=== PATIENT | female | born 1950 | race Caucasian/White ===

== ENCOUNTER 2021-11-06 15:12 | Inpatient (IN) | payer MEDICARE, MEDICAID ==
[~2021-11-06] VITALS: Ht 165.1 cm; Wt 68.9 kg
--- NOTE | 2021-11-06 15:15 | NUR ---
RT NOTE, PT. 71 Y OLD FEMALE REC. IN ER #5 NONE VERBAL, TRACH ( SHILEY XLT #7 ), PLACED ON VENTILATOR WITH NOTED SETTINGS PER MD ORDER. ( AC 12, VT 550, FIO2 40%, PEEP +5 ) EQUAL CHEST RISE NOTED, ALARMS ARE SET AND FUNCTIONAL, B/S BILATERALLY RALES AND SUX'D FOR SMALL AMT WHITE SECRETIONS, VENT PLUGGED INTO RED OUT LET. ABG WILL BE DONE PT. STABLE AND FAY. VENT SETTINGS WELL, [id number], SPO2 97% AMBU BAG REMAIN AT THE BEDSIDE. CONTINUE TO MONITOR. Addendum: 11/06/21 at 1739 by KAREY GUILLEN RT Amended: Links added.
--- NOTE | 2021-11-06 15:19 | NUR ---
TO ER BED 5, [id number] FOR AMS 1 1/2 HOUR WHILE BEING DIALYZED. BG 266 SKI PRODUCTION SUPERVISOR, NON VERBAL, CONNECTED TO MONITOR, RESPIRATORY AT BEDSIDE, AWAITING MD ORDERS
--- NOTE | 2021-11-06 15:27 | NUR ---
Alex trimble in [facility] - 11/06/21 at 1528 by AISHA GOT BED [id number]
[2021-11-06 15:50] LABS: BASOPHILS % (AUTO) 0.6 % (0.0-2.0); HEMATOCRIT 27 % (33-45); HEMOGLOBIN 8.9 g/dL (11.5-14.8); LYMPHOCYTES # (AUTO) 0.7 K/uL (0.8-4.8); MEAN CORPUSCULAR HGB CONC 33 g/dl (31.0-36.0); MEAN CORPUSCULAR VOLUME 94 fL (82-100); MONOCYTES # (AUTO) 0.4 K/uL (0.1-1.30); MONOCYTES % (AUTO) 6.4 % (2.0-12.0); NEUTROPHILS # (AUTO) 5.1 K/uL (1.8-8.9); PLATELET COUNT (AUTO) 94 K/uL (150-450); RED BLOOD CELL COUNT(AUTO) 2.87 MIL/uL (4.0-5.2); WHITE BLOOD COUNT (AUTO) 6.2 K/uL (4.3-11.0)
[2021-11-06 16:09] LABS: CALCIUM, SERUM 7.8 mg/dL (8.5-10.1); CARBON DIOXIDE 20 mmol/L (21-32); CHLORIDE 102 mmol/L (98-107); CREATININE 5.2 mg/dL (0.6-1.3); GLUCOSE 213 mg/dL (74-106); POTASSIUM 4.3 mmol/L (3.5-5.1); SODIUM SERUM 136 mmol/L (136-145); UREA NITROGEN, BLOOD 39 mg/dL (7-18)
[2021-11-06 16:13] LABS: BAND % (MANUAL) 3 % (0.0-5.0); LYMPHOCYTES % (MANUAL) 9 % (16-48); MONOCYTES % (MANUAL) 8 % (0-11.0); NEUTROPHILS % (MANUAL) 80 (42-76)
[2021-11-06 16:15] LABS: ABG BASE EXCESS -2.3 mmol/L; ABG OXYGEN SATURATION 97.6 % (92.0-98.5); ABG PCO2 22.2 mmHg (35.0-45.0); ABG PH 7.547 (7.350-7.450); ABG PO2 99.3 mmHg (75.0-100.0); AaDO2 160.4 mmHg; COHb 0.3 % (0.5-1.5); O2Hb 97.3 % (94.0-97.0); SITE, ABG Right Brachial
[2021-11-06 16:23] LABS: ALANINE AMINOTRANSFERASE 18 U/L (12-78); ALBUMIN 1.8 g/dL (3.4-5.0); ALKALINE PHOSPHATASE 90 U/L (46-116); ASPARTATE AMINOTRANSFERASE 22 U/L (15-37); BILIRUBIN,DIRECT 0.2 mg/dL (0.0-0.2); BILIRUBIN,TOTAL 0.5 mg/dL (0.2-1.0); TOTAL PROTEIN, SERUM 6.8 g/dL (6.4-8.2)
[2021-11-06] MEDS ORDERED: CEFEPIME 1 GM in IV D5W 50 ML IV ONE (16:30)
[2021-11-06] MEDS ORDERED: VANCOMYCIN 1 GM in IV D5W 250 ML IV ONE (16:30)
--- NOTE | 2021-11-06 16:37 | NUR ---
TAKEN TO CT VIA RALPH
--- NOTE | 2021-11-06 16:45 | NUR ---
CALLED FOR PICC LINE NURSE
[2021-11-06] MEDS ORDERED: ACETAMINOPHEN 650 MG/SUPP.RECT RC ONE ×2 (17:00→17:09)
[2021-11-06] MEDS ORDERED: MAG HYDROX/AL HYDROX/SIMETH 30 ML UDC PO PRN (18:00)
[2021-11-06] MEDS ORDERED: DEXTROSE 50%-WATER 50 ML DISP.SYRIN IV PRN (18:00)
[2021-11-06] MEDS ORDERED: MAGNESIUM HYDROXIDE 30 ML UDC PO PRN (18:00)
[2021-11-06] MEDS ORDERED: ONDANSETRON HCL/PF 4 MG/2 ML VIAL IVP PRN (18:00)
[2021-11-06] MEDS ORDERED: Z GUARD REMEDY 2 OZ OINT TP PRN (18:00)
--- NOTE | 2021-11-06 18:27 | NUR ---
COVID SWAB DONE AND SENT TO THE LAB
--- NOTE | 2021-11-06 19:38 | NUR ---
MRSA SWAB COLLECTED AND SENT TO LAB. PATIENT'S BELONGINGS LIST DONE.
--- NOTE | 2021-11-06 20:37 | NUR ---
NOTED W/ LOW BP OF 90/55. MORELIA AMARAL NP MADE AWARE W/ A NEW ORDER FOR PICC LINE INSERTION. ENDY HYATT AT BED SIDE FOR MID LINE INSERTION WILL INSER PICC INSTEAD.
--- NOTE | 2021-11-06 21:17 | NUR ---
RT UPPER ARM PICC LINE IN PLACE BY MIDLINE RN
[2021-11-06] MEDS ORDERED: PHENYLEPHRINE 10 MG/ML VIAL ONE (21:18)
[2021-11-06] MEDS ORDERED: PHENYLEPHRINE 50 MG in IV NS 0.9% 245 ML IV PRN (21:30)
--- NOTE | 2021-11-06 21:31 | NUR ---
ICU 256
[2021-11-06] MEDS: PHENYLEPHRINE 50 MG in IV NS 0.9% 245 ML IV PRN (21:34)
--- NOTE | 2021-11-06 21:41 | NUR ---
ATTEMPTED TO GIVE REPORT, RN WILL CALL ME BACK
--- NOTE | 2021-11-06 22:00 | NUR ---
ANJU REPORT TO JOHN CAZARES FOR SALVATORE
--- NOTE | 2021-11-06 22:15 | NUR ---
RN/ICU-ADMITTED THIS 71 Y/O FEMALE FROM ER PER ACLS PROTOCOL:DX.ALOC. ROUTINE ICU ADMISSION CARE INITIATED. PT. AROUSABLE,CONFUSED, MOANING. ON THE VENT PER TRACH, ON AC MODE. FIO2-40%. EKG SR. BP-110/46, ON LEVOPHED DRIP AT .5MCG/KG/MIN. WILL TITRATE TO KEEP SBP>90. AFEBRILE. PT. WITH MULTI SKIN ISSUES, WOUND CARE INITIATED PER PROTOCOL. WOUND CARE CONSULT TRIGGERED. PT. ON DROPLET ISOLATION,AWAITING PCR RESULT.PRECAUTIONS IN EFFECT.FULL CODE.
[2021-11-06 23:00] VITALS: BP 99/52
[2021-11-06 23:15] VITALS: BP 69/36
[2021-11-06] MEDS: BLOOD SUGAR DIAGNOSTIC 1 EACH STRIP VI SCH (23:25)
[2021-11-06] MEDS: *INSULIN REGULAR(HUMULIN R)HUM 100 UNIT/ML VIAL SQ PRN (23:27)
[2021-11-06 23:30] VITALS: BP 83/33
[2021-11-06] MEDS ORDERED: PIPERACILLIN /TAZOBACTAM 2.25 G VIAL IV ONE (23:32)
[2021-11-06 23:45] VITALS: BP 83/39
[2021-11-07] VITALS (103 sets, daily range): BP systolic 73–143; BP diastolic 27–89
[2021-11-07] MEDS ORDERED: PIPERACILLIN /TAZOBACTAM 2.25 G in IV D5W 50 ML IV SCH
[2021-11-07] MEDS: IV NS 0.9% 250 ML IV PRN ×3 (02:55→21:56)
[2021-11-07] MEDS: ACETAMINOPHEN 650 MG/SUPP.RECT RC PRN (04:30)
--- NOTE | 2021-11-07 04:30 | NUR ---
RN/ICU-FEVERISH, TEMPT.-100/F,COOLING MEASURES DONE, TYLENOL 650MG WV GIVEN . WILL REASSESS FOR PRN EFFECTIVENESS.
[2021-11-07] MEDS ORDERED: PHENYLEPHRINE 10 MG/ML VIAL ONE (05:54)
[2021-11-07] MEDS: PHENYLEPHRINE 50 MG in IV NS 0.9% 245 ML IV PRN (05:57)
[2021-11-07 06:04] LABS: BASOPHILS % (AUTO) 0.1 % (0.0-2.0); HEMATOCRIT 27 % (33-45); HEMOGLOBIN 8.7 g/dL (11.5-14.8); LYMPHOCYTES # (AUTO) 0.8 K/uL (0.8-4.8); MEAN CORPUSCULAR HGB CONC 33 g/dl (31.0-36.0); MEAN CORPUSCULAR VOLUME 95 fL (82-100); MONOCYTES # (AUTO) 0.6 K/uL (0.1-1.30); MONOCYTES % (AUTO) 9.5 % (2.0-12.0); NEUTROPHILS # (AUTO) 5.3 K/uL (1.8-8.9); NEUTROPHILS % (AUTO) 78.4 % (43.0-81.0); PLATELET COUNT (AUTO) 104 K/uL (150-450); WHITE BLOOD COUNT (AUTO) 6.8 K/uL (4.3-11.0)
[2021-11-07 06:34] LABS: CALCIUM, SERUM 8.4 mg/dL (8.5-10.1); CARBON DIOXIDE 21 mmol/L (21-32); CHLORIDE 104 mmol/L (98-107); CREATININE 6.4 mg/dL (0.6-1.3); GLUCOSE 81 mg/dL (74-106); MAGNESIUM 1.9 mg/dL (1.8-2.4); PHOSPHORUS 2.3 mg/dL (2.5-4.9); POTASSIUM 3.7 mmol/L (3.5-5.1); SODIUM SERUM 140 mmol/L (136-145); UREA NITROGEN, BLOOD 53 mg/dL (7-18)
--- NOTE | 2021-11-07 07:05 | NUR ---
RN NOTES RECEIVED PT ON BED, VENT/TRACH DEPENDENT, TOLERAING VENT SETTING WELL, RESPONDS TO PAINFUL STIMULI, T=100.0 AXILLARY AT THIS TIME, ON TELE SR HR IN 90'S , RIGHT UPPER ARM PICC SITE AND RIGHT UPPER CHEST HD CATH SITE , CLEAN ,DRY AND INTACT, GLO AT 2 MCG/KG/ MIN RUNNING FOR BP SUPPORT, SR UP x3, CALL LIGHT WITHIN EASY REACH, BED LOCKED AND IN LOWEST POSITION, CONTINUE TO MONITOR .
[2021-11-07] MEDS: HYDROCORTISONE SOD SUCCINATE 100 MG/2 ML VIAL IV SCH ×3 (07:59→21:20)
[2021-11-07] MEDS: BLOOD SUGAR DIAGNOSTIC 1 EACH STRIP VI SCH ×4 (08:12→21:21)
[2021-11-07] MEDS ORDERED: CHLO473M5 MM (08:54)
[2021-11-07] MEDS ORDERED: AMIN30LI2 PO (08:54)
[2021-11-07] MEDS ORDERED: ZINC56.713 TP (08:54)
[2021-11-07] MEDS ORDERED: GLIP5TAB13 PO (08:54)
[2021-11-07] MEDS ORDERED: CLON0.1T PO (08:54)
[2021-11-07] MEDS ORDERED: LEVO88TA5 PO (08:54)
[2021-11-07] MEDS ORDERED: ASCO-352 PO (08:54)
[2021-11-07] MEDS ORDERED: ESCI10TA PO (08:54)
[2021-11-07] MEDS ORDERED: ALBU2.5V38 IH (08:54)
[2021-11-07] MEDS ORDERED: ASPI-1420 PO (08:54)
[2021-11-07] MEDS ORDERED: OLAN2.5T3 PO (08:54)
[2021-11-07] MEDS ORDERED: DOCU-141 PO (08:54)
[2021-11-07] MEDS ORDERED: LOSA50TA39 PO (08:54)
[2021-11-07] MEDS ORDERED: CARV6.252 PO (08:54)
[2021-11-07] MEDS ORDERED: NIFE-35 PO (08:54)
[2021-11-07] MEDS ORDERED: EPOE1VIA6 SQ (08:54)
[2021-11-07] MEDS ORDERED: POLY17PO4 PO (08:54)
[2021-11-07] MEDS ORDERED: FOLI0.8T2 PO (08:54)
[2021-11-07] MEDS ORDERED: RIVA10TA PO (08:54)
[2021-11-07] MEDS ORDERED: SEVE800T8 PO (08:54)
[2021-11-07] MEDS ORDERED: PANT40TA2 PO (08:54)
--- NOTE | 2021-11-07 09:00 | NUR ---
WOUND CARE CONSULT: REVIEWED CHART, NURSING DOCUMENTATION AND PHOTOS WHICH INDICATE INTACT DEEP TISSUE INJURIES/DISCOLORATIONS TO SACRUM, BUTTOCKS AND RT HIP. PRESENT ON ADMISSION. PT IS ON ZENON ISOFLEX LOW AIRLOSS BED. ALL SKIN PROTECTION MEASURES IN PLACE AND DISCUSSED WITH NURSING STAFF. MD IN AGREEMENT WITH PLAN OF CARE.
[2021-11-07] MEDS: ZOSYN IVPB 2.25 G in IV D5W 50ml IV SCH ×3 (09:03→21:20)
[2021-11-07] MEDS ORDERED: ALBUTEROL SULFATE INH 18 GM HFA.AER.AD IH PRN (09:30)
--- NOTE | 2021-11-07 09:50 | NUR ---
RT PER DR HERNANDEZ ORDERS: VT LOWERED TO 500, PEEP TURNED OFF. Addendum: 11/07/21 at 1157 by KENNETH BEAN RT Amended: Links added.
[2021-11-07] MEDS: PHENYLEPHRINE 100 MG in IV NS 0.9% 240 ML IV PRN ×3 (10:27→21:56)
--- NOTE | 2021-11-07 11:11 | NUR ---
RN NOTES NGT TUBE INSERTED, XRAY DONE TO CHECK FOR PARCHMENT , NGT ADVANCED 6 CM PER RADIOLOGY REPORT ,NGT PLACEMENT CHECKED WITH TWO RNS .
[2021-11-07] MEDS ORDERED: NEPRO 1,000 ML BOTTLE GT PRN (11:30)
[2021-11-07] MEDS: ACETAMINOPHEN 325 MG TABLET PO PRN (12:18)
[2021-11-07] MEDS: NOREPINEPHRINE 8 MG in IV NS 0.9% 242 ML IV PRN (14:45)
--- NOTE | 2021-11-07 14:45 | NUR ---
RN NOTES PT RECEIVING HD , LOW BP NOTED, LEVO DRIP STARTED PER PROTOCOL.
[2021-11-07] MEDS: RIVAROXABAN 10 MG TABLET PO SCH (16:16)
[2021-11-07] MEDS: INSULIN REGULAR, HUMAN 100 UNIT/ML 3 ML VIAL SQ PRN (17:11)
--- NOTE | 2021-11-07 18:00 | NUR ---
RN NOTES DR GALLO NOTIFIED REGARDING MG 2.3 , NO NEW ORDER GIVEN
[2021-11-07] MEDS: VANCOMYCIN 500 MG in IV D5W 100 ML IV PRN (18:08)
--- NOTE | 2021-11-07 18:50 | NUR ---
RN NOTES TRACH CARE DONE, TOLERAING VENT SETTING WELL, PT STILL LETHARGIC , DOES NOT FOLLOW COMMAND, TOLERAING TF WELL, NO RESIDUAL NOTED, ON TELE SR, IV SITES CLEAN ,DRY INTACT , WILL ENDORSE TO TANK TENDER NURSE FOR CONTINUITY OF CARE .
--- NOTE | 2021-11-07 20:00 | NUR ---
RN OPENING NOTE RECEIVED PATIENT IN BED. NONVERBAL VERY LETHARGIC. ON MECHANICAL VENT FROM TRACH SHILEY #7, AC 12 TV 500 FIO2 35% PEEP 0. RESPIRATIONS ARE EVEN AND UNLABORED. NO RESP DISTRESS. NO S/S PAIN NOTED. TELE MONITOR READS SINUS RHTYHM HR 63. IN NO APPARENT DISTRESS. IV ACCESS IN JAES PICC LINE RUNNING GLO@3MCG. LEFT WRIST #22 PATENT ANS SALINE LOCKED, RIGHT HAND#22 PATENT AND SALINE LOCKED. PATIENT ALSO HAS A RIGHT CHEST WALL HD CATH. NG TUBE IN PLACE, NO RESIDUAL, NEPRO RUNNING @35ML/HR. BED IS LOW AND LOCKED, HOB ELEVATED IN SEMI FOWLERS, SIDE RIALS UP X2, CALL LIGHT WITHIN REACH.
[2021-11-07] MEDS: *INSULIN REGULAR(HUMULIN R)HUM 100 UNIT/ML VIAL SQ PRN (21:44)
[2021-11-08] VITALS (97 sets, daily range): BP systolic 94–152; BP diastolic 45–86
[2021-11-08] MEDS: HYDROCORTISONE SOD SUCCINATE 100 MG/2 ML VIAL IV SCH ×3 (05:16→20:48)
[2021-11-08] MEDS: ZOSYN IVPB 2.25 G in IV D5W 50ml IV SCH ×3 (05:16→20:48)
[2021-11-08 05:52] LABS: BASOPHILS % (AUTO) 0.2 % (0.0-2.0); EOSINOPHILS % (AUTO) 0.1 % (0.0-6.0); HEMATOCRIT 24 % (33-45); HEMOGLOBIN 8.2 g/dL (11.5-14.8); LYMPHOCYTES # (AUTO) 0.8 K/uL (0.8-4.8); LYMPHOCYTES % (AUTO) 11.3 % (20.0-44.0); MEAN CORPUSCULAR HGB CONC 34 g/dl (31.0-36.0); MEAN CORPUSCULAR VOLUME 96 fL (82-100); MONOCYTES # (AUTO) 0.4 K/uL (0.1-1.30); MONOCYTES % (AUTO) 6.4 % (2.0-12.0); NEUTROPHILS # (AUTO) 5.5 K/uL (1.8-8.9); PLATELET COUNT (AUTO) 97 K/uL (150-450); RED BLOOD CELL COUNT(AUTO) 2.53 MIL/uL (4.0-5.2); WHITE BLOOD COUNT (AUTO) 6.7 K/uL (4.3-11.0)
[2021-11-08] MEDS ORDERED: PHENYLEPHRINE 10 MG/ML VIAL ONE (05:57)
[2021-11-08] MEDS: PHENYLEPHRINE 100 MG in IV NS 0.9% 240 ML IV PRN (06:01)
--- NOTE | 2021-11-08 06:37 | NUR ---
RN CLOSING NOTE IN BED. NONVERBAL, OPENS EYES SPONTANEOUSLY. REMAINS ON MECHANICAL VENT FROM TRACH, NO CHANGES IN SETTINGS. NO RESP DISTRESS. NO S/S PAIN. TELE CONTINUES TO READ SINUS RHYTHM. NO DISTRESS. JASE PICC LINE RUNNING GLO@3MCG. LEFT WRIST #22 REMOVED D/T DISLODGED. RIGHT HAND#22 MAINTAINED AND SL.RIGHT CHEST WALL HD CATH. NG TUBE RUNNING @35ML/HR. BED REMAINS LOW AND LOCKED, HOB ELEVATED IN SEMI FOWLERS, SIDE RIALS UP X2, CALL LIGHT WITHIN REACH. WILL ENDORSE TO ONCOMING SHIFT.
[2021-11-08 07:00] LABS: CALCIUM, SERUM 7.8 mg/dL (8.5-10.1); CARBON DIOXIDE 23 mmol/L (21-32); CHLORIDE 101 mmol/L (98-107); CREATININE 3.7 mg/dL (0.6-1.3); GLUCOSE 289 mg/dL (74-106); POTASSIUM 3.6 mmol/L (3.5-5.1); SODIUM SERUM 137 mmol/L (136-145); UREA NITROGEN, BLOOD 39 mg/dL (7-18)
--- NOTE | 2021-11-08 07:30 | NUR ---
RN NOTES PT FOUND SEMI FOWLERS DISPLAYING NO S/S OF DISTRESS, PT ENDORSES NO PAIN, FLACC = 0 AND BILATERAL RISE AND FALL OF THE CHEST OBSERVED. RESIDUAL = < 5 ML. R UA PICC IS PATIENT AND INTACT. S1S2 NOTED, LUNGS CTA. VSS, RN WILL MONITOR AND TREAT THROUGHOUT SHIFT. SAFETY MEASURES IN PLACE, BED LOCKED AND IN LOWEST POSITION, SIDE RAILS UPX2, CALL LIGHT WITHIN REACH, BED ALARM ARMED.
--- NOTE | 2021-11-08 07:45 | NUR ---
RT PATIENT REC'D TRACHED ON [facility] VENT WITH ORDERED SETTINGS FAY WELL. VENT ALARMS CHECKED + AUDIBLE. CUFF PRESSURE CHECKED SENIOR MARKETING MANAGER. TRACH SECURE AND IN PROPER POSITION. PATIENT APPEARS COMFORTABLE, NO SOB NOTED. AMBU BAG AT THE HOB Addendum: 11/08/21 at 1238 by KENNETH BEAN RT Amended: Links added.
[2021-11-08] MEDS: BLOOD SUGAR DIAGNOSTIC 1 EACH STRIP VI SCH ×4 (07:50→21:12)
[2021-11-08] MEDS: LEVOTHYROXINE SODIUM 88 MCG TABLET PO SCH (07:50)
[2021-11-08] MEDS: NOREPINEPHRINE 8 MG in IV NS 0.9% 242 ML IV PRN (07:52)
[2021-11-08] MEDS: INSULIN REGULAR, HUMAN 100 UNIT/ML 3 ML VIAL SQ PRN ×2 (07:55→12:35)
[2021-11-08 08:06] LABS: IRON, SERUM 22 ug/dl (50-175); TOTAL IRON BINDING CAPACITY 72 ug/dl (250-450)
[2021-11-08 09:57] LABS: BAND % (MANUAL) 2 % (0.0-5.0); LYMPHOCYTES % (MANUAL) 16 % (16-48); MONOCYTES % (MANUAL) 7 % (0-11.0); NEUTROPHILS % (MANUAL) 72 (42-76)
--- NOTE | 2021-11-08 10:15 | NUR ---
CRITICAL LAB [facility] CALLED REPORTING MRSA OF THE BLOOD. RN ACKNOWLEDGED AND WILL INFORM ID MD AND HOSPITALIST.
[2021-11-08] MEDS ORDERED: EPOETIN ALFA-EPBX 10,000 UNIT/ML VIAL IV PRN (12:00)
[2021-11-08] MEDS: RIVAROXABAN 10 MG TABLET PO SCH (17:00)
[2021-11-08] MEDS: *INSULIN REGULAR(HUMULIN R)HUM 100 UNIT/ML VIAL SQ PRN ×2 (17:41→21:14)
--- NOTE | 2021-11-08 17:42 | NUR ---
NURSES NOTES XRAY HAS NOT YET CONFIRMED IF PT NGTUBE IS PLACED PROPERLY
[2021-11-08] MEDS: VANCOMYCIN 500 MG in IV D5W 100 ML IV PRN (18:39)
--- NOTE | 2021-11-08 19:15 | NUR ---
RN NOTES PT FOUND SEMI FOWLERS DISPLAYING NO S/S OF DISTRESS, PT ENDORSES NO PAIN, FLACC = 0 AND BILATERAL RISE AND FALL OF THE CHEST OBSERVED. RESIDUAL = < 5 ML, WAITING ON INTERPRETATION OF CXR TO RESUME FEEDING. R PICC IS PATIENT AND INTACT. R WRIST IN SOFT RESTRAINTS, PULSE PALPATED, CAP REFILL < 3 SECONDS. SBAR AND REPORT GIVEN TO SOCIAL SECRETARY RN, ALL QUESTIONS ANSWERED. SAFETY MEASURES IN PLACE, BED LOCKED AND IN LOWEST POSITION, SIDE RAILS UPX2, CALL LIGHT WITHIN REACH, BED ALARM ARMED. PT ENDORSED IN STABLE CONDITION, ALL QUESTIONS ANSWERED.
--- NOTE | 2021-11-08 19:34 | NUR ---
SEEN XRAY RESULT WITH RADIOLOGY RECOMMENDATION OF ADVANCEMENT OF NGTUBE, ADVANCE NGTUBE FROM 65 TO 75 PLACEMENT WAS CHECK VIA AUSCULTATION AND ASPIRATION RESIDUAL OF 5ML WAS NOTED WILL CONT THE GTUBE FEEDING RATE PER MD ORDER
--- NOTE | 2021-11-08 20:11 | NUR ---
PATIENT REC'D TRACHED SHILEY XLT # 7 ON [facility] VENT WITH ORDERED SETTINGS FAY WELL. VENT ALARMS CHECKED AND AUDIBLE. CUFF PRESSURE CHECKED CASING CREW PUSHER. TRACH SECURE AND IN PROPER POSITION.NO RESPIRATORY DISTRESS NOTED AT THIS TIME. AMBU BAG AT THE [facility]. WILL CONTINUE TO MONITOR PT T/O SHIFT.
[2021-11-08] MEDS: IV NS 0.9% 250 ML IV PRN (21:02)
[2021-11-09] VITALS (19 sets, daily range): BP systolic 117–149; BP diastolic 59–73
--- NOTE | 2021-11-09 00:20 | NUR ---
ACCUCHECK CHNAGE TO Q6H DUE TO PT IS ON GTUBE FEEDING MORELIA AMARAL CBX OPERATOR AWARE AND AGREE TO IT
[2021-11-09] MEDS ORDERED: DEXTROSE 50%-WATER 50 ML DISP.SYRIN IV PRN (00:30)
[2021-11-09] MEDS: ZOSYN IVPB 2.25 G in IV D5W 50ml IV SCH ×2 (04:44→12:03)
[2021-11-09] MEDS: HYDROCORTISONE SOD SUCCINATE 100 MG/2 ML VIAL IV SCH ×3 (04:45→21:44)
[2021-11-09] MEDS: NEPRO 1,000 ML BOTTLE GT PRN (04:45)
[2021-11-09 05:06] LABS: BASOPHILS % (AUTO) 0.1 % (0.0-2.0); HEMATOCRIT 26 % (33-45); HEMOGLOBIN 8.6 g/dL (11.5-14.8); LYMPHOCYTES # (AUTO) 0.8 K/uL (0.8-4.8); LYMPHOCYTES % (AUTO) 11.5 % (20.0-44.0); MEAN CORPUSCULAR HGB CONC 33 g/dl (31.0-36.0); MEAN CORPUSCULAR VOLUME 95 fL (82-100); MONOCYTES # (AUTO) 0.3 K/uL (0.1-1.30); MONOCYTES % (AUTO) 5.1 % (2.0-12.0); NEUTROPHILS # (AUTO) 5.5 K/uL (1.8-8.9); NEUTROPHILS % (AUTO) 83.3 % (43.0-81.0); PLATELET COUNT (AUTO) 112 K/uL (150-450); RED BLOOD CELL COUNT(AUTO) 2.74 MIL/uL (4.0-5.2); WHITE BLOOD COUNT (AUTO) 6.6 K/uL (4.3-11.0)
[2021-11-09 05:15] LABS: CALCIUM, SERUM 7.4 mg/dL (8.5-10.1); CARBON DIOXIDE 24 mmol/L (21-32); CHLORIDE 101 mmol/L (98-107); CREATININE 3.7 mg/dL (0.6-1.3); GLUCOSE 247 mg/dL (74-106); POTASSIUM 3.3 mmol/L (3.5-5.1); SODIUM SERUM 138 mmol/L (136-145); UREA NITROGEN, BLOOD 45 mg/dL (7-18)
[2021-11-09] MEDS: BLOOD SUGAR DIAGNOSTIC 1 EACH STRIP IN SCH ×3 (06:11→17:49)
[2021-11-09] MEDS: INSULIN REGULAR, HUMAN 100 UNIT/ML 3 ML VIAL SQ PRN ×3 (06:12→18:15)
--- NOTE | 2021-11-09 07:17 | NUR ---
PT ON BED SLEEPING EASY TO WAKE UP BUT NOT FOLLOWING ANY COMMANDS, STILL ON TRACH/VENT SETTING PER MD FIO2 35% SPO2 99% STILL ON NGTUBE FEEDING NEPHRO @ 35ML/HR TOLERATING WELL, WITH RIGHT WRIST SOFT RESTRAINTS, CIRCULATION WAS CHECKED BED ON LOWEST POSITION AND LOCKED ENDORSED TO AM SHIFT NURSE
--- NOTE | 2021-11-09 07:30 | NUR ---
RN NOTES PT FOUND SEMI FOWLERS DISPLAYING NO S/S OF DISTRESS, PT ENDORSES NO PAIN, FLACC = 0 AND BILATERAL RISE AND FALL OF THE CHEST OBSERVED. RESIDUAL < 5 ML. R UA PICC IS PATIENT AND INTACT. R WRIST IN SOFT RESTRAINTS, PULSE PALPATED, CAP REFILL < 3 SECONDS. VSS, RN WILL MONITOR AND TREAT THROUGHOUT SHIFT. SAFETY MEASURES IN PLACE, BED LOCKED AND IN LOWEST POSITION, SIDE RAILS UPX2, CALL LIGHT WITHIN REACH, BED ALARM ARMED.
[2021-11-09] MEDS: LEVOTHYROXINE SODIUM 88 MCG TABLET PO SCH (07:35)
[2021-11-09] MEDS ORDERED: LIDOCAINE 1% INJ 50 ML MDV IJ ONE (08:00)
--- NOTE | 2021-11-09 08:00 | NUR ---
MD VISIT DR. MENA REMOVED HEMODIALYSIS CATHETER. DRESSING PLACED, BLEEDING CONTROLLED.
--- NOTE | 2021-11-09 12:55 | NUR ---
TRANSFER RN CALLED AND GAVE REPORT TO ALY CARNEY RN. PT TRANSPORTED ON PORTABLE BEDSIDE MONITOR ACCOMPANIED BY TWO RT (1 RESPIRATORY MANAGEMENT AND 1 TO MOVE MECH VENT). PT IS STILL NON-VERBAL, FLACC = 0 AND BILATERAL RISE AND FALL OF THE CHEST OBSERVED ON AMBU BAG HOOKED UP TO O2. R UA PICC PATIENT AND INTACT. DRIED BLOOD OBSERVED OVER WHERE HD CATH WAS REMOVED EARLIER IN AM. BILATERAL SOFT WRISTS APPLIED, PULSES PALPATED BILATERALLY. PT ENDORSED IN STABLE CONDITION FOR SALVATORE.
--- NOTE | 2021-11-09 13:00 | NUR ---
RN NOTES REPORT RECEIVED FROM JOHN PASTOR, PT RECEIVED IN STABLE CONDITION WITH NO SIGN OF RESPIRATORY DISTRESS OR SOB AT THIS TIME, NON-VERBAL, JASE PICC PATIENT AND INTACT. DRIED BLOOD NOTED OVER HD CATH THAT WAS REMOVED EARLIER. NGT NOTED RUNNING NEPRO 30CC/HR, BILATERAL SOFT WRISTS ALSO IN PLACE, PULSES PALPATED BILATERALLY. SAFETY MEASURES IN PLACE BED LOCKED AND IN LOWEST POSITION CALL LIGHT WITHIN REACH WILL CONTINUE TO MONITOR
[2021-11-09] MEDS: MUPIROCIN OINT 2% 22 GM TUBE NS SCH ×2 (13:36→21:45)
[2021-11-09] MEDS: CEFEPIME 1 GM in IV D5W 50 ML IV SCH (13:36)
[2021-11-09] MEDS: RIVAROXABAN 10 MG TABLET PO SCH (16:49)
--- NOTE | 2021-11-09 18:33 | NUR ---
RN CLOSING NOTES PT REMAINS IN BED IN STABLE CONDITION WITH NO SIGN OF RESPIRATORY DISTRESS OR SOB AT THIS TIME, NON-VERBAL, JASE PICC LINE PATIENT, INTACT AND FLUSHING WELL. NGT PATENT AND IN PLACE RUNNING NEPRO 30CC/HR, BILATERAL SOFT WRISTS ALSO IN PLACE, ALL NEEDS MET, PT KEPT CLEAN AND COMFORTABLE DURING SHIFT, SAFETY MEASURES IN PLACE BED LOCKED AND IN LOWEST POSITION CALL LIGHT WITHIN REACH WILL ENDORSE TO METER ENGINEERINVESTMENT ACCOUNTANT. Addendum: 11/09/21 at 1845 by KEN ALAMO RN PT IS ON MECHANICAL VENT TRACH S#7 AC12 TV 500 FIO2 35 PEEP 0. SR 60/70s
--- NOTE | 2021-11-09 20:00 | NUR ---
babatunde rn notes PT IN BED IN STABLE CONDITION ON VENT SETTING ORDERED WELL TOLERATED ON TELE SR HR OF 65 .WITH NO SIGN OF RESPIRATORY DISTRESS OR SOB AT THIS TIME, NON-VERBAL, JASE PICC LINE PATIENT, INTACT AND FLUSHING WELL. NGT PATENT AND IN PLACE RUNNING NEPRO 35CC/HR, BILATERAL SOFT WRISTS ALSO IN PLACE, ALL NEEDS MET, PT KEPT CLEAN AND COMFORTABLE DURING SHIFT, SAFETY MEASURES IN PLACE BED LOCKED AND IN LOWEST POSITION CALL LIGHT WITHIN REACH ,V/S STABLE AFEBRILE DUE MEDS GIVEN ORDERED WILL CONTINUE TO MONITOR PTS..
[2021-11-10] VITALS: BP 160/75
[2021-11-10] MEDS: INSULIN REGULAR, HUMAN 100 UNIT/ML 3 ML VIAL SQ PRN ×4 (00:59→17:38)
[2021-11-10] MEDS: BLOOD SUGAR DIAGNOSTIC 1 EACH STRIP IN SCH ×4 (01:00→17:39)
--- NOTE | 2021-11-10 01:02 | NUR ---
ANJANA RN NOTES BLOOD SUGAR AT 12MN IS 258 MG/DL 9 UNITS OF REGULAR INSULIN GIVEN PER SLIDING IFTIKHAR PTS ON GT FEEDNG WILL CHECK BLOOD SUGAR AGAIN IN AM.
[2021-11-10 04:00] VITALS: BP 188/99
[2021-11-10] MEDS: HYDROCORTISONE SOD SUCCINATE 100 MG/2 ML VIAL IV SCH ×3 (04:18→20:47)
--- NOTE | 2021-11-10 05:24 | NUR ---
babatunde rn notes Blood sugar at 6am is 280 mg/di 9 units og regular insulin gven per sliding scale.will continue to monitor pts.
[2021-11-10] MEDS: ACETAMINOPHEN 325 MG TABLET PO PRN (05:48)
--- NOTE | 2021-11-10 06:35 | NUR ---
babatunde rn notes resident in bed remains on ventilator dependent as ordered will tolerated no sob no distress noted v/s stable afebrile will endorse to rn day shift for continuity of care.
[2021-11-10 06:54] LABS: BASOPHILS % (AUTO) 0.2 % (0.0-2.0); EOSINOPHILS % (AUTO) 0.1 % (0.0-6.0); HEMATOCRIT 27 % (33-45); HEMOGLOBIN 8.7 g/dL (11.5-14.8); LYMPHOCYTES # (AUTO) 0.7 K/uL (0.8-4.8); LYMPHOCYTES % (AUTO) 10.7 % (20.0-44.0); MEAN CORPUSCULAR HGB CONC 33 g/dl (31.0-36.0); MEAN CORPUSCULAR VOLUME 96 fL (82-100); MONOCYTES # (AUTO) 0.3 K/uL (0.1-1.30); MONOCYTES % (AUTO) 4.9 % (2.0-12.0); NEUTROPHILS # (AUTO) 5.1 K/uL (1.8-8.9); NEUTROPHILS % (AUTO) 84.1 % (43.0-81.0); PLATELET COUNT (AUTO) 156 K/uL (150-450); RED BLOOD CELL COUNT(AUTO) 2.77 MIL/uL (4.0-5.2); WHITE BLOOD COUNT (AUTO) 6.1 K/uL (4.3-11.0)
[2021-11-10 07:05] LABS: CALCIUM, SERUM 7.9 mg/dL (8.5-10.1); CARBON DIOXIDE 22 mmol/L (21-32); CHLORIDE 103 mmol/L (98-107); CREATININE 4.8 mg/dL (0.6-1.3); GLUCOSE 291 mg/dL (74-106); POTASSIUM 3.4 mmol/L (3.5-5.1); SODIUM SERUM 140 mmol/L (136-145); UREA NITROGEN, BLOOD 73 mg/dL (7-18)
--- NOTE | 2021-11-10 07:44 | NUR ---
RN OPENING NOTE PATIENT RECEIVED IN BED, RESTING. PATIENT ON MECHANICAL VENTILATOR WITH FIO2 OF 35% AND NO SIGNS OF LABORED BREATHING AT THIS TIME. NGT IN PLACE RUNNING NEPRO AT 35CC/HR. RIGHT UA PICC LINE IN PLACE, PATENT WITH NO SIGNS OF INFILTRATION. NO SIGNS OF DISTRESS NOTED AT THIS TIME, NO CHEST PAIN REPORTED. BED LOCKED AND IN LOWEST POSITION, CALL LIGHT WITHIN REACH, 3 SIDE RAILS UP. WILL CONTINUE TO MONITOR.
[2021-11-10] MEDS: CLONIDINE HCL 0.1 MG TABLET PO PRN ×3 (07:59→21:07)
[2021-11-10] MEDS: LEVOTHYROXINE SODIUM 88 MCG TABLET PO SCH (07:59)
[2021-11-10 08:00] VITALS: BP 166/77
[2021-11-10] MEDS: MUPIROCIN OINT 2% 22 GM TUBE NS SCH ×2 (08:05→20:48)
[2021-11-10] MEDS: NEPRO 1,000 ML BOTTLE GT PRN (11:09)
[2021-11-10 12:00] VITALS: BP 176/72
[2021-11-10] MEDS: CEFEPIME 1 GM in IV D5W 50 ML IV SCH (12:03)
[2021-11-10 16:00] VITALS: BP 154/72
[2021-11-10] MEDS: RIVAROXABAN 10 MG TABLET PO SCH (17:37)
--- NOTE | 2021-11-10 18:52 | NUR ---
RN CLOSING NOTE PATIENT REMAINS IN BED, RESTING, LETHARGIC. PATIENT ON MECHANICAL VENTILATOR WITH FIO2 OF 35% AND NO SIGNS OF LABORED BREATHING AT THIS TIME. NGT IN PLACE RUNNING NEPRO AT 35CC/HR. RIGHT UA PICC LINE IN PLACE, PATENT WITH NO SIGNS OF INFILTRATION. NO SIGNS OF DISTRESS NOTED AT THIS TIME. ALL NEEDS ATTENDED DURING SHIFT. BED LOCKED AND IN LOWEST POSITION, CALL LIGHT WITHIN REACH, 3 SIDE RAILS UP. WILL ENDORSE TO BURNING PLANT OPERATOR NURSE.
--- NOTE | 2021-11-10 19:45 | NUR ---
RN OPENING NOTES: RECEIVED PATIENT IN BED RESTING, NOTED SLIGHT LETHARGIC. ON MECHANICAL VENT SETTING: AC 12, TV: 500, FIO2:35%, PEEP:5. NO SOB NOTED. NO LABORED BREATHING AT THIS MOMENT. ON NG TUBE IN PLACE WITH NEPHRO AT 35CC/HR. HOB INCREASE TO 30 DEGREES TO PREVENT ASPIRATIONS. RT UPPER ARM PICC IN PLACE, INTACT AND PATENT. NO FACIAL GRIMACING NOTED. NO ACUTE DISTRESS. ON BOTH WRIST RESTRAINT IN PLACE. SKIN WARM AND DRY TO TOUCH. BED IN LOW POSITION AND LOCKED. 3X SIDE RAILS UP. PLACE CALL LIGHT WITH IN REACH. WILL CONTINUE TO MONITOR
[2021-11-10 20:00] VITALS: BP 180/85
[2021-11-10] MEDS ORDERED: EPOETIN ALFA-EPBX 10,000 UNIT/ML VIAL SQ SCH (20:00)
--- NOTE | 2021-11-10 21:07 | NUR ---
RN NOTES: PATIENT'S BLOOD PRESSURE UP TO 180/85. CLONIDINE 0.1 MG TAB GIVEN PRN ORDER AND TOLERATED WELL. NO S/S OF HYPER/HYPOTENSION. WILL CONTINUE TO MONITOR
[2021-11-11] VITALS: BP 163/78
[2021-11-11] MEDS: BLOOD SUGAR DIAGNOSTIC 1 EACH STRIP IN SCH ×4 (00:01→17:12)
[2021-11-11] MEDS: INSULIN REGULAR, HUMAN 100 UNIT/ML 3 ML VIAL SQ PRN ×4 (00:05→17:42)
--- NOTE | 2021-11-11 00:05 | NUR ---
PATIENT'S BLOOD SUGAR 228. 6 UNITS OF REGULAR INSULIN GIVEN. NO S/S OF HYPER/HYPOGLYCEMIA
[2021-11-11 04:00] VITALS: BP 159/61
[2021-11-11] MEDS: HYDROCORTISONE SOD SUCCINATE 100 MG/2 ML VIAL IV SCH ×3 (04:09→20:24)
--- NOTE | 2021-11-11 05:33 | NUR ---
RN NOTES: BLOOD SUGAR 281, 9 UNITS OF REGULAR INSULIN GIVEN PER SLIDING SCALE. NO S/S OF HYPER/HYPOGLYCEMIA. WILL CONTINUE TO MONITOR
--- NOTE | 2021-11-11 06:34 | NUR ---
RN CLOSING NOTES: PATIENT IN BED SLEEPING, BUT EASILY AROUSABLE, OPEN BOTH EYE. ON TRACH W/ MECHANICAL VENT SETTING WELL TOLERATED. NO SOB NOTED. NO LABORED BREATHING. NG TUBE ON LEFT NOSTRIL IN PLACE WITH NEPHRO AT 35CC/HR. HOB INCREASE TO 30 DEGREES TO PREVENT ASPIRATIONS. RT UPPER ARM PICC IN PLACE, INTACT AND PATENT. ALL DUE MEDS GIVEN AND PT TOLERATED WELL. NO FACIAL GRIMACING NOTED. NO ACUTE DISTRESS. ON BOTH WRIST RESTRAINT IN PLACE. RELEASED FOR CIRCULATIONS. SKIN WARM AND DRY TO TOUCH. BED IN LOW POSITION AND LOCKED. 3X SIDE RAILS UP. PLACE CALL LIGHT WITH IN REACH. WILL ENDORSE TO MORNING SHIFT NURSE.
[2021-11-11 07:13] LABS: BASOPHILS % (AUTO) 0.3 % (0.0-2.0); EOSINOPHILS % (AUTO) 0.2 % (0.0-6.0); HEMATOCRIT 27 % (33-45); HEMOGLOBIN 8.6 g/dL (11.5-14.8); LYMPHOCYTES # (AUTO) 0.9 K/uL (0.8-4.8); LYMPHOCYTES % (AUTO) 12.7 % (20.0-44.0); MEAN CORPUSCULAR HGB CONC 32 g/dl (31.0-36.0); MEAN CORPUSCULAR VOLUME 97 fL (82-100); MONOCYTES # (AUTO) 0.2 K/uL (0.1-1.30); MONOCYTES % (AUTO) 3.6 % (2.0-12.0); NEUTROPHILS # (AUTO) 5.7 K/uL (1.8-8.9); NEUTROPHILS % (AUTO) 83.2 % (43.0-81.0); PLATELET COUNT (AUTO) 187 K/uL (150-450); RED BLOOD CELL COUNT(AUTO) 2.76 MIL/uL (4.0-5.2); WHITE BLOOD COUNT (AUTO) 6.8 K/uL (4.3-11.0)
--- NOTE | 2021-11-11 07:30 | NUR ---
FILTER WASHER AND PRESSER OPENING NOTES RECEIVED PATIENT ON BED SLEEPING BUT EASILY AROUSABLE, OPENS BOTH EYES. ON TRACH WITH MECHANICAL VENT SETTING WELL TOLERATED. NO SOB NOTED, NOT IN DISTRESS. ON NEPRO FEEDING AT 35CC/HR VIA NG-TUBE RUNNING WELL. HOB AT 30 DEGRESS TO PREVENT ASPIRATION. WITH IV ACCESS AT RIGHT UPPER ARM PICC LINE, SALINE LOCKED, PATENT AND INTACT. ON TELE MONITOR CURRENTLY READING SINUS RHYTHM AT 66BMP. ON BILATERAL SOFT WRIST RESTRAINT IN PLACED. SAFETY MEASURES IN PLACED. CALL LIGHT WITHIN REACH. BED ON LOWEST LOCKED POSITION, SIDE RAILS UP X3. WILL CONTINUE TO MONITOR.
[2021-11-11 07:41] LABS: CALCIUM, SERUM 8.1 mg/dL (8.5-10.1); CARBON DIOXIDE 24 mmol/L (21-32); CHLORIDE 103 mmol/L (98-107); CREATININE 5.8 mg/dL (0.6-1.3); GLUCOSE 284 mg/dL (74-106); POTASSIUM 3.8 mmol/L (3.5-5.1); SODIUM SERUM 140 mmol/L (136-145)
[2021-11-11 07:44] LABS: UREA NITROGEN, BLOOD 97 mg/dL (7-18)
[2021-11-11 08:00] VITALS: BP 180/86
[2021-11-11] MEDS: LEVOTHYROXINE SODIUM 88 MCG TABLET PO SCH (08:57)
[2021-11-11] MEDS: MUPIROCIN OINT 2% 22 GM TUBE NS SCH ×2 (08:58→21:01)
[2021-11-11 12:00] VITALS: BP 196/89
[2021-11-11] MEDS: CEFEPIME 1 GM in IV D5W 50 ML IV SCH (12:06)
[2021-11-11] MEDS: CLONIDINE HCL 0.1 MG TABLET PO PRN ×2 (12:46→21:08)
[2021-11-11 16:00] VITALS: BP 166/84
[2021-11-11] MEDS: RIVAROXABAN 10 MG TABLET PO SCH (16:27)
--- NOTE | 2021-11-11 18:26 | NUR ---
BUSINESS TECHNOLOGY ANALYST CLOSING NOTES PATIENT ON BED SLEEPING, EASILY AROUSABLE AND OPENS BOTH EYES WHEN CALLED BY NAME. ON TRACH WITH MECHANICAL VENT SETTING WELL TOLERATED. NO SOB NOTED, NOT IN DISTRESS. ON NEPRO FEEDING AT 35CC/HR VIA NG-TUBE RUNNING WELL. HOB AT 30 DEGRESS TO PREVENT ASPIRATION. WITH IV ACCESS AT RIGHT UPPER ARM PICC LINE, SALINE LOCKED, PATENT AND INTACT. ON TELE MONITOR CURRENTLY READING SINUS BRADYCARDIA AT 52BPM. ON BILATERAL SOFT WRIST RESTRAINT IN PLACED. DUE MEDS GIVEN. SAFETY MEASURES IN PLACED. CALL LIGHT WITHIN REACH. BED ON LOWEST LOCKED POSITION, SIDE RAILS UP X3. WILL ENDORSE TO NEXT SHIFT FOR SALVATORE.
[2021-11-11] MEDS: NEPRO 1,000 ML BOTTLE GT PRN (18:44)
--- NOTE | 2021-11-11 19:50 | NUR ---
FLASK FITTER OPENING NOTES PATIENT IN BED WITH EYES CLOSED, EASILY AROUSABLE AND OPENS EYES. PT ON MECHANICAL VENT AND TOLERATING WELL, NO S/S OF DISTRESS OR SOB NOTED, BREATHING EVEN AND UNLABORED, SPO2: 100%. PT ON EXTERNAL ADDICTIONS THERAPIST READING SINUS GRAHAM, HR: 55. NG-TUBE ON LEFT NOSTRIL INTACT, RUNNING NEPRO TUBE FEEDING @ 35 ML/HR. IV ACCESS ON RIGHT UPPER ARM PICC LINE INTACT AND SALINE LOCKED. BILATERAL SOFT WRIST IN PLACE. SAFETY AND ASPIRATION PRECAUTIONS IN PLACE: CALL LIGHT WITHIN REACH, BED LOCKED IN LOW POSITION, SIDE RAILS UP X 3, HOB ELEVATED @ 35 DEGREES, BED ALARM ON. WILL CONTINUE TO MONITOR PATIENT
[2021-11-11 20:00] VITALS: BP 190/75
--- NOTE | 2021-11-11 22:00 | NUR ---
SALES HOST NOTE NGT CLOGGED, ATTEMPTED TO UNCLOG BUT WAS NOT ABLE TO. NEW NG TUBE INSERTED IN LEFT NARE. POSITIVE PLACEMENT THROUGH AUSCULTATION. STAT CXR ORDERED TO CONFIRM PLACEMENT
[2021-11-12] VITALS (8 sets, daily range): BP systolic 168–198; BP diastolic 72–98
[2021-11-12] MEDS: INSULIN REGULAR, HUMAN 100 UNIT/ML 3 ML VIAL SQ PRN ×4 (00:02→18:00)
[2021-11-12] MEDS: HYDROCORTISONE SOD SUCCINATE 100 MG/2 ML VIAL IV SCH ×3 (05:01→20:16)
[2021-11-12] MEDS: CLONIDINE HCL 0.1 MG TABLET PO PRN ×3 (05:24→20:17)
[2021-11-12] MEDS: BLOOD SUGAR DIAGNOSTIC 1 EACH STRIP IN SCH ×4 (06:32→18:01)
[2021-11-12 07:22] LABS: BASOPHILS # (AUTO) 0.1 K/uL (0.0-0.2); BASOPHILS % (AUTO) 0.6 % (0.0-2.0); EOSINOPHILS % (AUTO) 0.1 % (0.0-6.0); HEMATOCRIT 27 % (33-45); HEMOGLOBIN 9.2 g/dL (11.5-14.8); LYMPHOCYTES # (AUTO) 0.6 K/uL (0.8-4.8); MEAN CORPUSCULAR HGB CONC 34 g/dl (31.0-36.0); MEAN CORPUSCULAR VOLUME 96 fL (82-100); MONOCYTES # (AUTO) 0.3 K/uL (0.1-1.30); MONOCYTES % (AUTO) 3.4 % (2.0-12.0); NEUTROPHILS # (AUTO) 9.2 K/uL (1.8-8.9); NEUTROPHILS % (AUTO) 89.9 % (43.0-81.0); PLATELET COUNT (AUTO) 200 K/uL (150-450); RED BLOOD CELL COUNT(AUTO) 2.85 MIL/uL (4.0-5.2); WHITE BLOOD COUNT (AUTO) 10.2 K/uL (4.3-11.0)
--- NOTE | 2021-11-12 07:30 | NUR ---
TELE OPENING RN NOTES RECEIVED PATIENT ON BED SLEEPING BUT EASILY AROUSABLE, OPENS BOTH EYES. ON TRACH SHILEY 7 WITH MECHANICAL VENT SETTING FOLLOWS: AC 12 TV 500 FIO2 35 PEEP 6, TOLERATING WELL. NO SOB NOTED, NOT IN DISTRESS. ON NEPRO FEEDING AT 35CC/HR VIA NG-TUBE RUNNING WELL. HOB ELEVATED AT ALL TIMES TO PREVENT ASPIRATION. WITH IV ACCESS AT RIGHT UPPER ARM PICC LINE, SALINE LOCKED, PATENT AND INTACT. ON TELE MONITOR CURRENTLY READING SINUS RHYTHM AT 58. ON BILATERAL SOFT WRIST RESTRAINT IN PLACED. SAFETY MEASURES IN PLACED. CALL LIGHT WITHIN REACH. BED ON LOWEST LOCKED POSITION, SIDE RAILS UP X3. WILL CONTINUE TO MONITOR.
--- NOTE | 2021-11-12 07:36 | NUR ---
SNAKER DRIVING HORSES CLOSING NOTES PATIENT IN BED WITH EYES CLOSED. PT ON MECHANICAL VENT AND TOLERATING WELL, NO S/S OF DISTRESS OR SOB NOTED, BREATHING EVEN AND UNLABORED, SPO2: 100%. PT ON EXTERNAL PHOTOTYPESETTER OPERATOR READING SINUS RHYTHM. NG-TUBE ON LEFT NOSTRIL INTACT, RUNNING NEPRO TUBE FEEDING @ 35 ML/HR. IV ACCESS ON RIGHT UPPER ARM PICC LINE INTACT AND SALINE LOCKED. BILATERAL SOFT WRIST IN PLACE. MEDICATIONS GIVEN ORDERED, PT NEEDS MET THROUGHOUT SHIFT. SAFETY AND ASPIRATION PRECAUTIONS IN PLACE: CALL LIGHT WITHIN REACH, BED LOCKED IN LOW POSITION, SIDE RAILS UP X 3, HOB ELEVATED @ 35 DEGREES, BED ALARM ON. ENDORSED TO DAY SHIFT NURSE FOR CONTINUITY OF CARE
[2021-11-12 07:52] LABS: CALCIUM, SERUM 7.9 mg/dL (8.5-10.1); CARBON DIOXIDE 22 mmol/L (21-32); CHLORIDE 102 mmol/L (98-107); CREATININE 6.5 mg/dL (0.6-1.3); GLUCOSE 308 mg/dL (74-106); POTASSIUM 3.9 mmol/L (3.5-5.1); SODIUM SERUM 138 mmol/L (136-145)
[2021-11-12 07:57] LABS: UREA NITROGEN, BLOOD 120 mg/dL (7-18)
[2021-11-12] MEDS: LEVOTHYROXINE SODIUM 88 MCG TABLET PO SCH (08:08)
[2021-11-12] MEDS: MUPIROCIN OINT 2% 22 GM TUBE NS SCH ×2 (09:27→20:15)
[2021-11-12] MEDS: CEFEPIME 1 GM in IV D5W 50 ML IV SCH (13:02)
[2021-11-12] MEDS: RIVAROXABAN 10 MG TABLET PO SCH (16:09)
[2021-11-12] MEDS: ACETAMINOPHEN 325 MG TABLET PO PRN (16:31)
--- NOTE | 2021-11-12 18:55 | NUR ---
TELE CLOSING RN NOTES PATIENT ON BED SLEEPING BUT EASILY AROUSABLE, OPENS BOTH EYES. ON TRACH SHILEY 7 WITH MECHANICAL VENT SETTING FOLLOWS: AC 12 TV 500 FIO2 35 PEEP 6, TOLERATING WELL. NO SOB NOTED, NOT IN DISTRESS. ON TELE MONITOR WITH SR @ 61. ON NEPRO FEEDING AT 35CC/HR VIA NG-TUBE TOLERATING WELL. HOB ELEVATED AT ALL TIMES, ASPIRATION PRECAUTIONS OBSERVED AT ALL TIMES. WITH IV ACCESS ON RIGHT UPPER ARM PICC LINE, SALINE LOCKED, PATENT AND INTACT. ON TELE MONITOR READING SINUS RHYTHM AT . BILATERAL SOFT WRIST RESTRAINT IN PLACED. RELEASED PRN. SAFETY MEASURES IN PLACED. CALL LIGHT WITHIN REACH. BED ON LOWEST LOCKED POSITION, SIDE RAILS UP X3. WILL ENDORSE TO NEXT SHIFT.
--- NOTE | 2021-11-12 19:53 | NUR ---
RN OPENING NOTES: RECEIVED CARE OF PATIENT WHILE IN BED SLEEPING BUT EASILY WAKES UP, OPENS BOTH EYES, A/O X1, NONVERBAL. ON TRACH SHILEY 7 WITH MECHANICAL VENT SETTING FOLLOWS: AC 12 TV 500 FIO2 35 PEEP 6, TOLERATING WELL. NO SOB NOTED, NOT IN DISTRESS. ON TELE MONITOR WITH SR @ 70. ON NEPRO FEEDING AT 35CC/HR VIA NG-TUBE TOLERATING WELL. HOB ELEVATED AT ALL TIMES, ASPIRATION PRECAUTIONS OBSERVED AT ALL TIMES. WITH IV ACCESS ON RIGHT UPPER ARM PICC LINE, SALINE LOCKED, PATENT AND INTACT. BILATERAL SOFT WRIST RESTRAINT IN PLACED. RELEASED PRN. SAFETY MEASURES IN PLACE, CALL LIGHT WITHIN REACH, BED AT LOWEST POSITION WITH WHEELS LOCKED IN PLACE. WILL CONTINUE TO MONITOR FOR ANY CHANGES.
--- NOTE | 2021-11-12 20:07 | NUR ---
RN NOTES PATIENT HAS A BLOOD PRESSURE READING OF 192/82, HR 64. WILL ADMINISTER CLONIDINE 0.1 MG PRN. WILL CONTINUE TO MONITOR VITAL SIGNS AND WILL MONITOR FOR ANY CHANGES.
[2021-11-13] VITALS (8 sets, daily range): BP systolic 134–208; BP diastolic 69–91
[2021-11-13] MEDS: BLOOD SUGAR DIAGNOSTIC 1 EACH STRIP IN SCH ×5 (00:53→23:38)
[2021-11-13] MEDS: INSULIN REGULAR, HUMAN 100 UNIT/ML 3 ML VIAL SQ PRN ×4 (01:23→23:57)
[2021-11-13] MEDS: CLONIDINE HCL 0.1 MG TABLET PO PRN ×3 (04:11→21:04)
[2021-11-13] MEDS: HYDROCORTISONE SOD SUCCINATE 100 MG/2 ML VIAL IV SCH ×3 (04:11→20:48)
[2021-11-13 07:13] LABS: BASOPHILS % (AUTO) 0.1 % (0.0-2.0); HEMATOCRIT 26 % (33-45); HEMOGLOBIN 8.6 g/dL (11.5-14.8); LYMPHOCYTES # (AUTO) 0.7 K/uL (0.8-4.8); LYMPHOCYTES % (AUTO) 8.1 % (20.0-44.0); MEAN CORPUSCULAR HGB CONC 33 g/dl (31.0-36.0); MEAN CORPUSCULAR VOLUME 96 fL (82-100); MONOCYTES # (AUTO) 0.4 K/uL (0.1-1.30); MONOCYTES % (AUTO) 4.3 % (2.0-12.0); NEUTROPHILS # (AUTO) 7.2 K/uL (1.8-8.9); NEUTROPHILS % (AUTO) 87.5 % (43.0-81.0); PLATELET COUNT (AUTO) 176 K/uL (150-450); WHITE BLOOD COUNT (AUTO) 8.2 K/uL (4.3-11.0)
--- NOTE | 2021-11-13 07:27 | NUR ---
RN CLOSING NOTES: WILL ENDORSE PT WHILE IN BED SLEEPING BUT EASILY WAKES UP, OPENS BOTH EYES, A/O X1, NONVERBAL. ON TRACH SHILEY 7 WITH MECHANICAL VENT SETTING FOLLOWS: AC 12 TV 500 FIO2 35 PEEP 6, TOLERATING WELL. NO SOB NOTED, NOT IN DISTRESS. ON TELE MONITOR WITH SR @ 76. ON NEPRO FEEDING AT 35CC/HR VIA NG-TUBE TOLERATING WELL. HOB ELEVATED AT ALL TIMES, ASPIRATION PRECAUTIONS OBSERVED AT ALL TIMES. WITH IV ACCESS ON RIGHT UPPER ARM PICC LINE, SALINE LOCKED, PATENT AND INTACT. BILATERAL SOFT WRIST RESTRAINT IN PLACED. RELEASED PRN. SAFETY MEASURES IN PLACE, CALL LIGHT WITHIN REACH, BED AT LOWEST POSITION WITH WHEELS LOCKED IN PLACE. WILL ENDORSE TO DAY SHIFT NURSE FOR SALVATORE.
[2021-11-13 07:42] LABS: CALCIUM, SERUM 7.8 mg/dL (8.5-10.1); CARBON DIOXIDE 21 mmol/L (21-32); CHLORIDE 102 mmol/L (98-107); GLUCOSE 313 mg/dL (74-106); POTASSIUM 3.8 mmol/L (3.5-5.1); SODIUM SERUM 139 mmol/L (136-145)
[2021-11-13 07:48] LABS: UREA NITROGEN, BLOOD 138 mg/dL (7-18)
[2021-11-13] MEDS: LEVOTHYROXINE SODIUM 88 MCG TABLET PO SCH (08:29)
[2021-11-13] MEDS: MUPIROCIN OINT 2% 22 GM TUBE NS SCH (08:32)
[2021-11-13 10:08] LABS: LYMPHOCYTES % (MANUAL) 8 % (16-48); MONOCYTES % (MANUAL) 4 % (0-11.0); NEUTROPHILS % (MANUAL) 88 (42-76)
[2021-11-13] MEDS: CEFEPIME 1 GM in IV D5W 50 ML IV SCH (11:53)
[2021-11-13] MEDS: PROSOURCE / PROSTAT (PYXIS) 30 ML UDC GT SCH ×2 (12:11→16:44)
[2021-11-13] MEDS: RIVAROXABAN 10 MG TABLET PO SCH (16:44)
--- NOTE | 2021-11-13 19:40 | NUR ---
gas truck driver opening notes Received Pt from morning nurse. Pt is resting in bed comfortably. Pt is alert and orientedX1, non verbal, able to open eyes. Pt is on vent with saturation 100%. Tele monitor showed SR HR at 63. NGT at L nostril is running nephro @ 35 ml/hr with 0 residual. Tele monitor showed SR hr at 70. JASE picc line is clean, and intact. Bilateral soft wrists restraint is intact and skin is warm to touch and circulation is checked @Q 2 hrs. Safety precautions is maintained. Bed at low position, hob elevated, brakes locked, bed alarm is on and call light is within reach. Will continue to monitor.
--- NOTE | 2021-11-13 21:05 | NUR ---
RN notes Pt's BP 176/69. Administered clonidine 0.1 mg/ngtube/prn as ordered for high BP. Will continue to monitor.
[2021-11-14] VITALS: BP 141/75
--- NOTE | 2021-11-14 00:06 | NUR ---
RN notes Report given to JOHN Seals for SALVATORE.
--- NOTE | 2021-11-14 02:10 | NUR ---
drafting layout worker notes Transferred Pt to [facility] [place] room 304-1 with ACLS protocol, 2 RT's, primary RN and DUST SAMPLER.
--- NOTE | 2021-11-14 02:45 | NUR ---
TRANSFER NOTES PT TRANSFERRED AND ARRIVED @0215. VITAL SIGNS STABLE: 97.7, 62 BPM, 18 RR, 151/79, 100%. PT IS AOx1, NONVERBAL. ON VENTILATOR AND TOLERATING WELL. NO SOB NOTED. NO S/SX OF RESPIRATORY DISTRESS NOTED. TELE MONITOR DETECTS: SINUS RHYTHM WITH RATE OF 62. IV ACCESS IN JASE PICC LINE AND R GROIN PERMACATH. IV IS INTACT, PATENT, AND FLUSHING WELL. SAFETY PRECAUTIONS IN PLACE: BED IN LOWEST, LOCKED POSITION, SIDERAILS UPx2, AND BRAKES ON. TABLE AND CALL LIGHT WITHIN REACH. WILL CONTINUE TO MONITOR.
[2021-11-14 04:00] VITALS: BP 179/71
[2021-11-14] MEDS: CLONIDINE HCL 0.1 MG TABLET PO PRN ×3 (04:20→21:08)
[2021-11-14] MEDS: HYDROCORTISONE SOD SUCCINATE 100 MG/2 ML VIAL IV SCH ×3 (04:20→21:08)
[2021-11-14] MEDS: BLOOD SUGAR DIAGNOSTIC 1 EACH STRIP IN SCH ×4 (05:29→23:12)
[2021-11-14] MEDS: INSULIN REGULAR, HUMAN 100 UNIT/ML 3 ML VIAL SQ PRN ×4 (05:45→23:15)
--- NOTE | 2021-11-14 05:48 | NUR ---
ADMINISTERED CLONIDINE FOR BP OF 171/79. WILL CONTINUE TO MONITOR.
--- NOTE | 2021-11-14 07:06 | NUR ---
BREAKFAST HOST CLOSING NOTES PT IN BED, ASLEEP, AWAKENS TO VERBAL STIMULI. PT IS AOx1, NONVERBAL. ON VENTILATOR AND TOLERATING WELL. NO SOB NOTED. NO S/SX OF RESPIRATORY DISTRESS NOTED. TELE MONITOR DETECTS: SINUS RHYTHM WITH RATE OF 62. IV ACCESS IN JASE PICC LINE AND R GROIN PERMACATH. IV IS INTACT, PATENT, AND FLUSHING WELL. SAFETY PRECAUTIONS IN PLACE: BED IN LOWEST, LOCKED POSITION, SIDERAILS UPx2, AND BRAKES ON. ALL NEEDS MET. PT KEPT CLEAN AND DRY. TREATED HIGH BLOOD PRESSURE ONCE. TABLE AND CALL LIGHT WITHIN REACH. WILL ENDORSE TO ONCOMING SHIFT FOR SALVATORE.
[2021-11-14] MEDS: LEVOTHYROXINE SODIUM 88 MCG TABLET PO SCH (07:21)
--- NOTE | 2021-11-14 07:22 | NUR ---
TRACK SURFACING MACHINE OPERATOR OPENING NOTES RECEIVED PATIENT AWAKE IN BED IN NO ACUTE SIGNS OF DISTRESS. HOB ELEVATED. PT IS NON-VERBAL, OPEN EYES TO TACTILE AND VERBAL STIMULI. ON TRACH SHILEY XLT# 7 CONNECTED TO MECHANICAL VENTILATOR @ SETTINGS OF : AC 12 TV 500 FIO2 35 PEEP 6, TOLERATING WELL, NO SOB NOTED, SP02 100% AT THIS TIME. ON TELE MONITOR CURRENTLY READING SINUS GRAHAM, HR 55, NO S/S OF CARDIAC DISTRESS OBSERVED AT THIS TIME. ON BILATERAL SOFT WRIST RESTRAINT IN PLACED, GOOD PERIPHERAL PULSES NOTED ON NEPRO FEEDING AT 35CC/HR IN PROGRESS VIA NG-TUBE ON LEFT NARE, TOLERATING WELL. ASPIRATION PRECAUTIONS MAINTAINED. RIGHT UPPER ARM PICC LINE INTACT, PATENT AND FLUSHES WELL. RIGHT GROIN HD CATH IN PLACE WITH DRESSING C/D/I. SAFETY MEASURES IN PLACED: CALL LIGHT WITHIN REACH. BED ON LOWEST LOCKED POSITION, SIDE RAILS UP X3. WILL CONTINUE TO MONITOR.
[2021-11-14 08:00] VITALS: BP 145/73
[2021-11-14] MEDS: PROSOURCE / PROSTAT (PYXIS) 30 ML UDC GT SCH ×2 (08:43→16:47)
[2021-11-14 09:20] LABS: BASOPHILS % (AUTO) 0.2 % (0.0-2.0); EOSINOPHILS % (AUTO) 0.1 % (0.0-6.0); HEMATOCRIT 27 % (33-45); HEMOGLOBIN 8.9 g/dL (11.5-14.8); LYMPHOCYTES # (AUTO) 0.8 K/uL (0.8-4.8); LYMPHOCYTES % (AUTO) 9.8 % (20.0-44.0); MEAN CORPUSCULAR HGB CONC 33 g/dl (31.0-36.0); MEAN CORPUSCULAR VOLUME 95 fL (82-100); MONOCYTES # (AUTO) 0.3 K/uL (0.1-1.30); MONOCYTES % (AUTO) 3.2 % (2.0-12.0); NEUTROPHILS # (AUTO) 7.5 K/uL (1.8-8.9); NEUTROPHILS % (AUTO) 86.7 % (43.0-81.0); PLATELET COUNT (AUTO) 191 K/uL (150-450); RED BLOOD CELL COUNT(AUTO) 2.85 MIL/uL (4.0-5.2); WHITE BLOOD COUNT (AUTO) 8.6 K/uL (4.3-11.0)
[2021-11-14 10:04] LABS: CALCIUM, SERUM 7.4 mg/dL (8.5-10.1); CARBON DIOXIDE 22 mmol/L (21-32); CHLORIDE 97 mmol/L (98-107); CREATININE 4.8 mg/dL (0.6-1.3); GLUCOSE 306 mg/dL (74-106); POTASSIUM 4.2 mmol/L (3.5-5.1); SODIUM SERUM 133 mmol/L (136-145)
[2021-11-14 10:10] LABS: UREA NITROGEN, BLOOD 93 mg/dL (7-18)
[2021-11-14] MEDS ORDERED: MISCELLANEOUS MED 1 EA EA IV SCH (12:30)
--- NOTE | 2021-11-14 14:03 | NUR ---
RN NOTES PT FOR CT OF CERVICAL, LUMBAR AND THORACIC SPINE WITH CONTRAST. TELEPHONE CONSENT OBTAINED FROM SON AT [facility]# [phone] AND CONFIRMED BY ANOTHER RN SEGUNDO.
--- NOTE | 2021-11-14 14:32 | NUR ---
RN NOTES RECEIVED CALL FROM CRYOGENIC TRANSPORT DRIVER CHIOMA CAMPOS THAT PT'S BLOOD CULTURES RESULTS SHOWS GRAM POSITIVE COCCI IN CLUSTERS SEEN ON GRAM STAIN. DISTRICT FIRE CHIEF MORELIA AMARAL MADE AWARE AND ACKNOWLEDGE.
[2021-11-14] MEDS ORDERED: IOHEXOL-300 100 ML VIAL IV ONE ×2 (15:19→15:20)
[2021-11-14] MEDS ORDERED: IV NS 0.9% 250 ML IV ONE (15:19)
[2021-11-14] MEDS ORDERED: ANESTHESIA TRAY IN PYXIS 1 EA TRAY MC ONE (15:44)
--- NOTE | 2021-11-14 15:45 | NUR ---
RN NOTES CT OF LUMBAR, CERVICAL AND THORACIC WITH CONTRAST DONE, WILL F/I RESULTS.
[2021-11-14 16:00] VITALS: BP 155/76
[2021-11-14] MEDS: RIVAROXABAN 10 MG TABLET PO SCH (16:48)
--- NOTE | 2021-11-14 17:00 | NUR ---
RN NOTES PT FOR TRANSESOPHAGEAL ECHOCARDIOGRAM TOMORROW AT [address] MCGHEE. OBTAINED TELEPHONE CONSENT FROM PT'S SON NIRMAL TAY @ TEL #[phone] AND WAS VERIFIED BY JOHN RAYMOND. NPO POST MIDNIGHT TO BE ENFORCED.
[2021-11-14 18:42] LABS: LYMPHOCYTES % (MANUAL) 17 % (16-48); MONOCYTES % (MANUAL) 3 % (0-11.0); NEUTROPHILS % (MANUAL) 80 (42-76)
--- NOTE | 2021-11-14 18:47 | NUR ---
PILLOWCASE SEWER OPENING NOTES PATIENT IN BED AWAKE AND LYING AT MODERATE HIGH BACKREST POSITION. NON-VERBAL, OPEN EYES TO TACTILE AND VERBAL STIMULI. PT ON ONGOING HEMODIALYSIS VIA RIGHT GROIN HHD CATHETER. PT WITH TRACH KAMALJITLEY XLT# 7 CONNECTED TO MECHANICAL VENTILATOR @ PRESCRIBED PARAMETERS OF : AC 12 TV 500 FIO2 35 PEEP 6, TOLERATING SETTINGS WELL, NO ACUTE RESPIRATORY DISTRESS NOTED DURING SHIFT, SP02 100% AT THIS TIME. ON TELE MONITOR WITH CURRENT READING SINUS GRAHAM, HR 58,. ON BILATERAL SOFT WRIST RESTRAINT, RELEASED ON AND OFF, GOOD PERIPHERAL PULSES AND CIRCULATIONS NOTED. ON NEPRO FEEDING AT 35CC/HR IN PROGRESS VIA NG-TUBE ON LEFT NARE, TOLERATING WELL. ASPIRATION PRECAUTIONS MAINTAINED. RIGHT UPPER ARM PICC LINE INTACT, PATENT AND FLUSHES WELL. PT TURNED AND REPOSITIONED Q 2HRS AND PRN. ALL NEEDS AND CARE PROVIDED WELL. SAFETY MEASURES IN PLACED: CALL LIGHT WITHIN REACH. BED ON LOWEST LOCKED POSITION, SIDE RAILS UP X3 AND CALL LIGHT WITHIN REAH. WILL ENDORSE SALVATORE TO GROCERY SPECIALIST NURSE Addendum: 11/19/21 at 0734 by JACKIE BRANDON RN CORRECTION: THIS IS PILLOWCASE SEWER CLOSING NOTES
--- NOTE | 2021-11-14 19:00 | NUR ---
COUNTER HAND OPENING NOTE NO CHANGE FROM PREVIOUS NOTATION. HD CONTINUES. RECEIVED REPORT AT PATIENT BS. PT'S VSS AND IN NAD AT THIS TIME.
[2021-11-14 20:00] VITALS: BP 181/93
--- NOTE | 2021-11-14 20:52 | NUR ---
RN notes Pt is finished HD with JOHN Pardo. OUtput 1000 ml. BP 160/81 and pulse 63. Pt tolerated well. Will continue to monitor.
--- NOTE | 2021-11-14 21:38 | NUR ---
RN NOTES PER NGT: NO RESIDUAL NOTED ON ASSESSMENT.
[2021-11-15] VITALS (7 sets, daily range): BP systolic 163–210; BP diastolic 75–110
--- NOTE | 2021-11-15 | NUR ---
PRINCIPAL TECHNOLOGIST NOTES TUBE FEEDING STOPPED D/T SHAMEKA PROCEDURE IN AM.
--- NOTE | 2021-11-15 03:15 | NUR ---
AUTO BODY REPAIRMAN NOTES: BP 180/78, HR 60. HOSPITALIST NOTIFIED. NOTHING BY NGT D/T SHAMEKA PROCEDURE IN AM. NEW ORDER OBTAINED FOR LABETALOL 5MG IVP. 0340 ADMINISTERED LABETALOL 5MG IVP PER ORDER.
[2021-11-15] MEDS ORDERED: LABETALOL 20 MG/4 ML VIAL IV ONE (03:30)
[2021-11-15] MEDS ORDERED: LABETALOL HCL IV 100MG VIAL ONE (03:36)
[2021-11-15] MEDS: HYDROCORTISONE SOD SUCCINATE 100 MG/2 ML VIAL IV SCH ×3 (05:03→20:19)
--- NOTE | 2021-11-15 05:30 | NUR ---
RN notes Received a phone call from JOHN Schultz ICU nurse. Informed Marion that Pt BP still high 212/86. IV push labetalol 5 mg was given to Pt but BP still high. Marion informed to notify ENDY Luther. Called and notified READING PROFESSOR regarding BP 212/86. READING PROFESSOR ordered to transfer Pt to ICU. Charge nurse is aware and informed. Order carried out.
[2021-11-15] MEDS: BLOOD SUGAR DIAGNOSTIC 1 EACH STRIP IN SCH ×3 (05:32→17:36)
[2021-11-15] MEDS: INSULIN REGULAR, HUMAN 100 UNIT/ML 3 ML VIAL SQ PRN ×3 (05:39→17:41)
--- NOTE | 2021-11-15 05:49 | NUR ---
RN notes Called RT Rigo to transfer Pt to ICU room 253.
--- NOTE | 2021-11-15 05:51 | NUR ---
RN notes Report given to JOHN Schultz for SALVATORE.
--- NOTE | 2021-11-15 06:05 | NUR ---
RN notes Transferred Pt to ICU room 253 with ACLS protocol for SHAMEKA procedure accompanied by 2 RN's, a Charge nurse and RT Rigo
[2021-11-15 06:32] LABS: BASOPHILS % (AUTO) 0.1 % (0.0-2.0); HEMATOCRIT 29 % (33-45); HEMOGLOBIN 9.2 g/dL (11.5-14.8); LYMPHOCYTES # (AUTO) 1.2 K/uL (0.8-4.8); LYMPHOCYTES % (AUTO) 7.7 % (20.0-44.0); MEAN CORPUSCULAR HGB CONC 32 g/dl (31.0-36.0); MEAN CORPUSCULAR VOLUME 95 fL (82-100); MONOCYTES # (AUTO) 0.8 K/uL (0.1-1.30); MONOCYTES % (AUTO) 4.8 % (2.0-12.0); NEUTROPHILS # (AUTO) 13.9 K/uL (1.8-8.9); NEUTROPHILS % (AUTO) 87.4 % (43.0-81.0); PLATELET COUNT (AUTO) 221 K/uL (150-450); RED BLOOD CELL COUNT(AUTO) 3.03 MIL/uL (4.0-5.2); WHITE BLOOD COUNT (AUTO) 15.9 K/uL (4.3-11.0)
[2021-11-15] MEDS: METOPROLOL TARTRATE INJ 5 MG/5 ML AMPUL IVP PRN (06:47)
--- NOTE | 2021-11-15 07:30 | NUR ---
ICU/RN PT IS ON THE VENT AC MODE ,FIO2-100%,SAT O2-100%.PT IS HAVING SHAMEKA ET THIS TIME.DR MARTÍNEZ AND DR RAMIREZ AT BED SIDE.V/S STABLE AFEBRILE.PT IS SEDATED.PT IS FROM [facility].RIGHT UPPER ARM PICC LINE ,RIGHT FEMORAL HD CATH ,PT STILL PRODUCE URINE,INCONTINENT,LABS REVIEW. AWARE.
[2021-11-15 07:32] LABS: CALCIUM, SERUM 7.7 mg/dL (8.5-10.1); CARBON DIOXIDE 23 mmol/L (21-32); CHLORIDE 97 mmol/L (98-107); CREATININE 3.8 mg/dL (0.6-1.3); GLUCOSE 232 mg/dL (74-106); SODIUM SERUM 135 mmol/L (136-145); UREA NITROGEN, BLOOD 77 mg/dL (7-18)
[2021-11-15] MEDS: LEVOTHYROXINE SODIUM 88 MCG TABLET PO SCH (08:04)
[2021-11-15] MEDS: CLONIDINE HCL 0.1 MG TABLET PO PRN (08:05)
[2021-11-15] MEDS: PROSOURCE / PROSTAT (PYXIS) 30 ML UDC GT SCH ×2 (08:15→17:14)
--- NOTE | 2021-11-15 09:00 | NUR ---
ICU/RN PT IS POST SHAMEKA.TOLERATED PROCEDURE WELL.BP 180/90. DUE MEDS ARE GIVEN ORDERED.NG TUBE REPLACED.CONTINUE MONITORING.
--- NOTE | 2021-11-15 11:45 | NUR ---
ICU/RN JACI CARE DONE.PT TRANSFER BACK TO TELE UNIT.V/S STABLE,AFEBRILE.NO PAIN REPORTED AT THIS TIME.BS-[id number].REPORT GIVEN TO TELE/RN .
--- NOTE | 2021-11-15 11:56 | NUR ---
SS Note: SW received consult for family information. SW called [facility] [phone] who provided the pt.'s responsible alliance party is her son, Isael Carmen [phone].
[2021-11-15] MEDS ORDERED: DAPTOMYCIN 500 MG in IV NS 0.9% 50 ML IV SCH (12:00)
[2021-11-15] MEDS: ACETAMINOPHEN 325 MG TABLET PO PRN (12:56)
[2021-11-15] MEDS: RIVAROXABAN 10 MG TABLET PO SCH (17:15)
--- NOTE | 2021-11-15 19:00 | NUR ---
MS LOPEZ CLOSING NOTES Pt IS RESTING IN BED. A/O X1. NO SIGNS OF PAIN OR NO SIGNS OF DISTRESS NOTICED. Pt RECEIVED HD TODAY AND 1000mL WERE REMOVED. IV ACCESS ON R UA MIDLINE, PATENT AND INTACT. HD CATH WAS REMOVED AFTER DIALYSIS. SAFETY MEASURES ARE IN PLACE; BED IS LOCKED AND IN LOWEST POSITION, SIDE RAILS UP X 2, ALL NEEDS MET. WILL ENDORSE TO ONCOMING SHIFT. Addendum: 11/15/21 at 1932 by SRIRAM SANTIAGO RN PEDRO LOPEZ CLOSING NOTES
--- NOTE | 2021-11-15 19:46 | NUR ---
PIT INSPECTOR OPENING NOTE PATIENT RECEIVED AWAKE IN BED. A/OX1. JASE SL PATENT. NO S/S OF DISTRESS, BREATHING SYMMETRICAL. O2 SATING AT 100%. CAP REFILL <3SECS. FURNACE PACKER REPORTS SR 73. SAFETY MEASURES IN PLACE: BED AT LOWEST POSITION, RAILS UP X2, CALL GARCÍA WITHIN REACH. WILL CONTINUE TO MONITOR PATIENT.
[2021-11-15] MEDS: D5W IV SCH (20:56)
[2021-11-15] MEDS: CEFTAROLINE FOSAMIL ACETATE IV SCH (20:56)
[2021-11-15] MEDS: ACETAMINOPHEN 650 MG/SUPP.RECT RC PRN (21:27)
[2021-11-16] VITALS: BP 150/87
[2021-11-16] MEDS: BLOOD SUGAR DIAGNOSTIC 1 EACH STRIP IN SCH ×4 (00:03→17:48)
[2021-11-16] MEDS: INSULIN REGULAR, HUMAN 100 UNIT/ML 3 ML VIAL SQ PRN ×4 (00:06→17:09)
[2021-11-16] MEDS ORDERED: LORAZEPAM INJ 2 MG/ML VIAL IV PRN (02:30)
--- NOTE | 2021-11-16 02:39 | NUR ---
LEAD RIDER NOTE PATIENT HAS BECOME AGITATED AND A BIT RESTLESS. FLACC SCORE OF 6 (PATIENT UNABLE TO VERBALIZE HER WANTS/NEEDS). ASIDE FROM USING FLACC SCORING FOR PAIN, I HAVE ATTEMPTED TO COMMUNICATE WITH PATIENT THROUGH USE OF EYES. I ASKED HER TO BLINK ONCE FOR YES IF SHE HAD PAIN. SHE BLINKED. PATIENT INITIALLY WAS GIVEN A TYLENOL SUPPOSITORY, BUT HER AGITATION AND RESTLESSNESS WERE NOT RESOLVED. ALL COMFORT MEASURES PROVIDED TO PATIENT INCLUDING SUCTIONING, REPOSITIONING, ETC. PATIENT IS AWARE WHEN SOMEONE COMES INTO THE ROOM. SHE ATTEMPTS TO MOUTH HER NEEDS, BUT IS STILL UNABLE TO VERBALIZE THEM. ELISEO WAS CONTACTED REGARDING THIS MATTER. PER MD, ATIVAN 1MG ONCE WAS ADMINISTERED. PATIENT APPEARS MORE RELAXED AND AT EASE.
[2021-11-16 04:00] VITALS: BP 161/86
[2021-11-16] MEDS: HYDROCORTISONE SOD SUCCINATE 100 MG/2 ML VIAL IV SCH ×3 (06:20→21:32)
[2021-11-16 06:44] LABS: BASOPHILS % (AUTO) 0.2 % (0.0-2.0); EOSINOPHILS % (AUTO) 0.1 % (0.0-6.0); HEMATOCRIT 28 % (33-45); HEMOGLOBIN 9.1 g/dL (11.5-14.8); LYMPHOCYTES # (AUTO) 1.6 K/uL (0.8-4.8); LYMPHOCYTES % (AUTO) 9.8 % (20.0-44.0); MEAN CORPUSCULAR HGB CONC 33 g/dl (31.0-36.0); MEAN CORPUSCULAR VOLUME 95 fL (82-100); MONOCYTES # (AUTO) 0.8 K/uL (0.1-1.30); MONOCYTES % (AUTO) 5.2 % (2.0-12.0); NEUTROPHILS # (AUTO) 13.9 K/uL (1.8-8.9); NEUTROPHILS % (AUTO) 84.7 % (43.0-81.0); PLATELET COUNT (AUTO) 213 K/uL (150-450); RED BLOOD CELL COUNT(AUTO) 2.96 MIL/uL (4.0-5.2); WHITE BLOOD COUNT (AUTO) 16.4 K/uL (4.3-11.0)
[2021-11-16 06:56] LABS: CALCIUM, SERUM 7.6 mg/dL (8.5-10.1); CARBON DIOXIDE 22 mmol/L (21-32); CHLORIDE 99 mmol/L (98-107); CREATININE 3.5 mg/dL (0.6-1.3); GLUCOSE 242 mg/dL (74-106); POTASSIUM 3.5 mmol/L (3.5-5.1); SODIUM SERUM 135 mmol/L (136-145); UREA NITROGEN, BLOOD 69 mg/dL (7-18)
--- NOTE | 2021-11-16 06:56 | NUR ---
MATHEMATICAL TECHNICIAN CLOSING NOTE PATIENT IS ASLEEP IN BED. A/OX1. NO S/S OF DISTRESS, BREATHING VIA VENT WITHOUT DIFFICULTY. GRAY TENDER REPORTS SR 67. PATIENT HAS GONE FROM AGITATED TO CALM THROUGHOUT THE NIGHT. PAIN HAS BEEN MANAGED THROUGHOUT NIGHT (SEE PREVIOUS RN NOTES). SAFETY MEASURES IN PLACE: BED AT LOWEST POSITION, RAILS UP X2, CALL GARCÍA WITHIN REACH. WILL ENDORSE TO NEXT SHIFT FOR SALVATORE.
--- NOTE | 2021-11-16 07:56 | NUR ---
RN OPENING NOTES PATIENT IN BED RESTING, AWAKE. A/O X1. NO S/S OF PAIN NOTED AT THIS TIME. PATIENT ON VENT, NO DISTRESS. IV ACCESS JASE PICC LINE, INTACT AND PATENT. PATIENT HAVE AN EXTERNAL LOGISTICS ENGINEERING MANAGER WITH CURRENT READING OF SR WITH HR OF 67. FALL AND SAFETY MEASURES IN PLACE, BED ALARM ON, BED IN LOW AND LOCK POSITION, CALL LIGHT AND TABLE WITHIN EASY REACH, SIDE RAILS UP X2. WILL CONTINUE TO MONITOR.
[2021-11-16] MEDS: CEFTAROLINE FOSAMIL ACETATE IV SCH ×2 (08:06→21:32)
[2021-11-16] MEDS: LEVOTHYROXINE SODIUM 88 MCG TABLET PO SCH (08:06)
[2021-11-16] MEDS: PROSOURCE / PROSTAT (PYXIS) 30 ML UDC GT SCH ×2 (08:06→16:10)
[2021-11-16] MEDS: D5W IV SCH ×2 (08:06→21:32)
[2021-11-16 08:15] VITALS: BP 186/84
[2021-11-16] MEDS: ACETAMINOPHEN 650 MG/SUPP.RECT RC PRN ×2 (10:22→22:13)
[2021-11-16 11:36] LABS: EOSINOPHILS % (MANUAL) 1 % (0-4); LYMPHOCYTES % (MANUAL) 11 % (16-48); MONOCYTES % (MANUAL) 6 % (0-11.0); NEUTROPHILS % (MANUAL) 82 (42-76)
[2021-11-16 12:19] VITALS: BP 175/82
[2021-11-16] MEDS: ACETAMINOPHEN 325 MG TABLET PO PRN ×2 (13:56→16:16)
[2021-11-16] MEDS: RIVAROXABAN 10 MG TABLET PO SCH (16:11)
[2021-11-16] MEDS: CLONIDINE HCL 0.1 MG TABLET PO PRN (16:12)
[2021-11-16 16:14] VITALS: BP 187/89
--- NOTE | 2021-11-16 16:15 | NUR ---
RN NOTES PATIENT BLOOD PRESSURE WAS 187/89, PULSE 70, PRN CLONIDINE WAS GIVEN AT 1612. WILL CONTINUE TO MONITOR.
--- NOTE | 2021-11-16 18:56 | NUR ---
RN CLOSING NOTES PATIENT IN BED RESTING, AWAKE. A/O X1. NO S/S OF PAIN NOTED AT THIS TIME. PATIENT ON VENT, NO DISTRESS. IV ACCESS JASE PICC LINE, INTACT AND PATENT. PATIENT HAVE AN EXTERNAL POULTRY BUYER WITH CURRENT READING OF SR WITH HR OF 73. FALL AND SAFETY MEASURES IN PLACE, BED ALARM ON, BED IN LOW AND LOCK POSITION, CALL LIGHT AND TABLE WITHIN EASY REACH, SIDE RAILS UP X2. WILL ENDORSE TO DESTINATION SIGN REPAIRER.
--- NOTE | 2021-11-16 19:00 | NUR ---
LEATHERSMITH OPENING NOTE: RECEIVED REPORT FROM AM RN AT PATIENT BEDSIDE. NO CHANGE FROM PREVIOUS NOTATION. PATIENT IS CALM AND IN NAD AT THIS TIME. CURRENT VENT SETTINGS AC 12, TV 500, FIO2 45, PEEP 5. TRACH PAULINE XLT #7
[2021-11-16 20:00] VITALS: BP 149/69
--- NOTE | 2021-11-16 22:00 | NUR ---
ASSISTANT FOOD SERVICE MANAGER NOTES: AT PATIENT BEDSIDE FOR ROUNDING. PATIENT MOUTHED "PAIN." OBTAINED TYLENOL SUPPOSITORY AND ADMINISTERED PER MD ORDER.
[2021-11-17] VITALS: BP 158/79
[2021-11-17] MEDS: CLONIDINE HCL 0.1 MG TABLET PO PRN ×3 (00:04→18:05)
[2021-11-17] MEDS: BLOOD SUGAR DIAGNOSTIC 1 EACH STRIP IN SCH ×4 (00:24→17:57)
[2021-11-17 04:00] VITALS: BP 155/76
[2021-11-17] MEDS: INSULIN REGULAR, HUMAN 100 UNIT/ML 3 ML VIAL SQ PRN ×3 (06:42→17:59)
[2021-11-17] MEDS: HYDROCORTISONE SOD SUCCINATE 100 MG/2 ML VIAL IV SCH (06:46)
--- NOTE | 2021-11-17 06:53 | NUR ---
AVIATION ELECTRONICS TECHNICIAN CLOSING NOTES: PATIENT ROUNDED ON AND TURNED/REPOSITIONED PER FACILITY PROTOCOL THROUGHOUT THE SHIFT. BLOOD DRAW FOR LAB OBTAINED VIA JASE PICC AND FLUSHED WITH 10ML NS. PICC LINE PATENT AND WITHOUT S/SX OF INFECTION/COMPLICATION. DRESSING TO SITE C/D/I. PATIENT IN NAD AND VSS AT THIS TIME. TELE: SR-65. VENT SETTINGS FOLLOWS: AC 12, TV 500, FiO2 45, PEEP 5. BILATERAL SOFT WRIST RESTRAINTS IN PLACE D/T ATTEMPTS TO PULL AT LINES DURING RELEASE.
[2021-11-17] MEDS: NEPRO 1,000 ML BOTTLE GT PRN (07:36)
--- NOTE | 2021-11-17 07:47 | NUR ---
RN OPENING NOTE PATIENT RECEIVED AWAKE IN BED. A/OX1. JASE- PICC SL PATENT. NO S/S OF DISTRESS, BREATHING SYMMETRICAL. O2 SATING AT 100% TRACH SR 73. PATIENT HAS NGT RUNNING 30ML/ HR OF NEPRO. SAFETY MEASURES IN PLACE: BED AT LOWEST POSITION, RAILS UP X2, CALL GARCÍA WITHIN REACH. T.
[2021-11-17 08:14] LABS: CALCIUM, SERUM 7.5 mg/dL (8.5-10.1); CARBON DIOXIDE 20 mmol/L (21-32); CHLORIDE 99 mmol/L (98-107); CREATININE 4.6 mg/dL (0.6-1.3); GLUCOSE 287 mg/dL (74-106); POTASSIUM 3.8 mmol/L (3.5-5.1); SODIUM SERUM 136 mmol/L (136-145)
[2021-11-17] MEDS: LEVOTHYROXINE SODIUM 88 MCG TABLET PO SCH (08:16)
[2021-11-17] MEDS: PROSOURCE / PROSTAT (PYXIS) 30 ML UDC GT SCH ×2 (08:16→17:41)
[2021-11-17] MEDS: CEFTAROLINE FOSAMIL ACETATE IV SCH ×2 (08:16→20:23)
[2021-11-17] MEDS: D5W IV SCH ×2 (08:16→20:23)
[2021-11-17 08:26] LABS: UREA NITROGEN, BLOOD 100 mg/dL (7-18)
[2021-11-17 08:36] LABS: BASOPHILS % (AUTO) 0.2 % (0.0-2.0); HEMATOCRIT 26 % (33-45); HEMOGLOBIN 8.5 g/dL (11.5-14.8); LYMPHOCYTES # (AUTO) 1.1 K/uL (0.8-4.8); LYMPHOCYTES % (AUTO) 6.9 % (20.0-44.0); MEAN CORPUSCULAR HGB CONC 32 g/dl (31.0-36.0); MEAN CORPUSCULAR VOLUME 95 fL (82-100); MONOCYTES # (AUTO) 0.5 K/uL (0.1-1.30); MONOCYTES % (AUTO) 3.2 % (2.0-12.0); NEUTROPHILS # (AUTO) 14.1 K/uL (1.8-8.9); NEUTROPHILS % (AUTO) 89.7 % (43.0-81.0); PLATELET COUNT (AUTO) 202 K/uL (150-450); RED BLOOD CELL COUNT(AUTO) 2.78 MIL/uL (4.0-5.2); WHITE BLOOD COUNT (AUTO) 15.8 K/uL (4.3-11.0)
[2021-11-17] MEDS: METOPROLOL TARTRATE INJ 5 MG/5 ML AMPUL IVP PRN (08:54)
[2021-11-17 09:50] VITALS: BP 192/89
[2021-11-17 10:11] VITALS: BP 192/89
[2021-11-17 11:37] VITALS: BP 169/71
[2021-11-17] MEDS: ACETAMINOPHEN 325 MG TABLET PO PRN (15:27)
[2021-11-17] MEDS: RIVAROXABAN 10 MG TABLET PO SCH (17:38)
[2021-11-17] MEDS: DAPTOMYCIN 500 MG in IV NS 0.9% 50 ML IV SCH (17:41)
--- NOTE | 2021-11-17 18:52 | NUR ---
RECTANGULAR TANK COOPER CLOSING NOTES: PATIENT IS RESTING IN BED A/O. PATIENT ON VENT SETTINGS FOLLOWS: AC 12, TV 500, FiO2 45, PEEP 5. TELE MONITOR READING SB-SR CURRENTLY AT 58. PATIENT HAS NGT RUNNING 30ML/HR OF NEPRO PER ORDER. IV ACCESS JASE PICC CURRENTLY RUNNING TKO AT 3ML/HR. BILATERAL SOFT WRIST RESTRAINTS IN PLACE D/T ATTEMPTS TO PULL AT LINES DURING RELEASE. ALL MEDICATIONS GIVEN THROUGH OUT SHIFT. NEEDS MET, SAFETY PROTOCOL IN PLACE WILL ENDORSE TO NIGHT NURSE FOR SALVATORE
[2021-11-17 20:00] VITALS: BP 169/75
[2021-11-18] VITALS: BP 158/79
[2021-11-18] MEDS: BLOOD SUGAR DIAGNOSTIC 1 EACH STRIP IN SCH ×5 (00:58→23:40)
[2021-11-18] MEDS: INSULIN REGULAR, HUMAN 100 UNIT/ML 3 ML VIAL SQ PRN ×4 (01:02→23:41)
[2021-11-18 04:00] VITALS: BP 158/98
--- NOTE | 2021-11-18 05:30 | NUR ---
DISASTER RECOVERY COORDINATOR NOTES PT'S NGT CLOGGED. TRIED TO DECLOG BUT UNSUCCESSFUL. REINSERTED NGT TO L NARES. PT TOLERATED WELL. STAT CXR ORDERED FOR PLACEMENT.
--- NOTE | 2021-11-18 07:00 | NUR ---
MARBLE MASON NOTES AWAKE & ALERT. NOT IN ANY DISTRESS. NO SOB NOTED. NO S/SX OF ANY PAIN OR DISCOMFORT AT THIS TIME. ON TELE SR @ 72 WITH JASE PICC LINE PATENT & INTACT. WITH GTF INTACT. AWAITING FOR CXR RESULTS TO R/O PLACEMENT. AM CARE DONE. MONITORED ACCORDINGLY. CALL LIGHT WITHIN REACH. BED IN LOWEST POSITION. SR UP X 3 WITH BED ALARM ON FOR SAFETY. WILL ENDORSE TO NEXT SHIFT.
--- NOTE | 2021-11-18 07:37 | NUR ---
PHOTOENGRAVING PROOFER APPRENTICE OPENING NOTE Patient in bed, resting. A/O x 1, non-verbal. Patient on mechanical ventilator Shiley #7 with settings as follows: AC 12, TV 500, FiO2 45, PEEP 5. Patient tolerating settings well. IV access on JASE PICC line, intact and patent. NGT in place, waiting for CXR to confirm placement. Bilateral soft restraints in place due to attempts to pull at lines. Safety precautions in place: bed in low, locked position; siderails up x 2; call light within reach. Will continue to monitor.
[2021-11-18] MEDS: CEFTAROLINE FOSAMIL ACETATE IV SCH ×2 (08:15→19:51)
[2021-11-18] MEDS: D5W IV SCH ×2 (08:15→19:51)
[2021-11-18 08:57] VITALS: BP 136/71
[2021-11-18] MEDS ORDERED: HYDROCORTISONE SOD SUCCINATE 100 MG/2 ML VIAL IV SCH (09:00)
[2021-11-18 09:28] LABS: BASOPHILS % (AUTO) 0.2 % (0.0-2.0); EOSINOPHILS % (AUTO) 0.4 % (0.0-6.0); HEMATOCRIT 28 % (33-45); LYMPHOCYTES % (AUTO) 10.3 % (20.0-44.0); MEAN CORPUSCULAR HGB CONC 32 g/dl (31.0-36.0); MEAN CORPUSCULAR VOLUME 95 fL (82-100); MONOCYTES # (AUTO) 0.8 K/uL (0.1-1.30); MONOCYTES % (AUTO) 3.8 % (2.0-12.0); NEUTROPHILS # (AUTO) 16.8 K/uL (1.8-8.9); NEUTROPHILS % (AUTO) 85.3 % (43.0-81.0); PLATELET COUNT (AUTO) 234 K/uL (150-450); RED BLOOD CELL COUNT(AUTO) 2.92 MIL/uL (4.0-5.2); WHITE BLOOD COUNT (AUTO) 19.7 K/uL (4.3-11.0)
[2021-11-18] MEDS: LEVOTHYROXINE SODIUM 88 MCG TABLET PO SCH (09:54)
[2021-11-18] MEDS: PROSOURCE / PROSTAT (PYXIS) 30 ML UDC GT SCH ×2 (09:55→18:17)
[2021-11-18] MEDS: ACETAMINOPHEN 325 MG TABLET PO PRN (11:30)
[2021-11-18 12:17] VITALS: BP 158/75
[2021-11-18 14:05] LABS: CARBON DIOXIDE 18 mmol/L (21-32); CHLORIDE 99 mmol/L (98-107); CREATININE 5.3 mg/dL (0.6-1.3); GLUCOSE 112 mg/dL (74-106); POTASSIUM 3.4 mmol/L (3.5-5.1); SODIUM SERUM 136 mmol/L (136-145); UREA NITROGEN, BLOOD 50 mg/dL (7-18)
[2021-11-18 14:43] LABS: CALCIUM, SERUM 6.7 mg/dL (8.5-10.1)
[2021-11-18 15:49] VITALS: BP 155/72
[2021-11-18] MEDS: RIVAROXABAN 10 MG TABLET PO SCH (18:17)
--- NOTE | 2021-11-18 19:02 | NUR ---
STEREO MAP PLOTTER OPERATOR CLOSING NOTE Patient in bed, asleep. A/O x 1. Patient on mechanical ventilator Shiley #7 with settings as follows: AC 12, TV 500, FiO2 45, PEEP 5. Patient tolerating settings well. IV access on JASE PICC line, intact and patent. NGT in place running Nepro at 30 ml/hr. On tele monitoring showing SR, HR at 69. Bilateral soft restraints in place due to attempts to pull at lines. Safety precautions in place: bed in low, locked position; siderails up x 2; call light within reach. Will endorse to tank worker nurse for SALVATORE.
--- NOTE | 2021-11-18 19:30 | NUR ---
RN NOTES RECEIVED PATIENT AWAKE ON HER BED A/OX1, VENT DEPENDENT, SR ON TELE MONITOR HR-78, WITH NGT, ON NEPRO RUNNING @ 30ML/HR, WITH RIGHT UPPER ARM PICC LINE (WHITE VALVE IS NOT WORKING), NOT IN DISTRESS. SIDERAILS UPX2, WILL CONTINUE TO MONITOR
[2021-11-18 20:00] VITALS: BP 156/86
[2021-11-19] VITALS: BP 159/78
[2021-11-19] MEDS: NEPRO 1,000 ML BOTTLE GT PRN (03:40)
[2021-11-19 04:00] VITALS: BP 159/78
[2021-11-19] MEDS: BLOOD SUGAR DIAGNOSTIC 1 EACH STRIP IN SCH ×4 (05:51→23:35)
--- NOTE | 2021-11-19 06:00 | NUR ---
JOHN ARNOLD PICC LINE WAS REMOVED PER DR. GALAVIZ ORDERED Addendum: 11/20/21 at 0627 by IVÁN PAYNE RN RIGHT TIME 2300
--- NOTE | 2021-11-19 06:26 | NUR ---
RN NOTES AWAKE, MORNING CARE RENDERED, NOT IN DISTRESS, NO PAIN NOTED, PT. NEEDS ATTENDED
[2021-11-19 06:40] LABS: BASOPHILS % (AUTO) 0.1 % (0.0-2.0); EOSINOPHILS % (AUTO) 0.2 % (0.0-6.0); HEMATOCRIT 26 % (33-45); HEMOGLOBIN 8.6 g/dL (11.5-14.8); LYMPHOCYTES # (AUTO) 1.9 K/uL (0.8-4.8); LYMPHOCYTES % (AUTO) 9.8 % (20.0-44.0); MEAN CORPUSCULAR HGB CONC 33 g/dl (31.0-36.0); MEAN CORPUSCULAR VOLUME 96 fL (82-100); MONOCYTES # (AUTO) 0.8 K/uL (0.1-1.30); MONOCYTES % (AUTO) 4.3 % (2.0-12.0); NEUTROPHILS # (AUTO) 16.1 K/uL (1.8-8.9); NEUTROPHILS % (AUTO) 85.6 % (43.0-81.0); PLATELET COUNT (AUTO) 235 K/uL (150-450); RED BLOOD CELL COUNT(AUTO) 2.73 MIL/uL (4.0-5.2); WHITE BLOOD COUNT (AUTO) 18.8 K/uL (4.3-11.0)
[2021-11-19 07:13] LABS: MAGNESIUM 2.6 mg/dL (1.8-2.4)
--- NOTE | 2021-11-19 07:25 | NUR ---
ASSISTANT PROFESSOR OF HISTORY OPENING NOTES RECEIVED PATIENT AWAKE IN BED IN NO ACUTE SIGNS OF DISTRESS. HOB ELEVATED. PT IS NON-VERBAL, OPEN EYES TO TACTILE AND VERBAL STIMULI. ON BILATERAL SOFT WRIST RESTRAINT IN PLACED, GOOD PERIPHERAL PULSES NOTED. ON TRACH SHILEY XLT# 7 CONNECTED TO MECHANICAL VENTILATOR @ SETTINGS OF : AC 12 TV 500 FIO2 35% PEEP 5, TOLERATING WELL, NO SOB NOTED, SP02 100% AT THIS TIME. ON TELE MONITOR CURRENTLY READING OF NSR, HR ON THE 70'S, NO S/S OF CARDIAC DISTRESS OBSERVED AT THIS TIME. ON NEPRO FEEDING AT 3OCC/HR IN PROGRESS VIA NG-TUBE ON LEFT NARE, TOLERATING WELL. ASPIRATION PRECAUTIONS MAINTAINED. RIGHT UPPER ARM PICC LINE INTACT, PATENT AND FLUSHES WELL. SAFETY MEASURES IN PLACED: CALL LIGHT WITHIN REACH. BED ON LOWEST LOCKED POSITION, SIDE RAILS UP X3. WILL CONTINUE TO MONITOR.
[2021-11-19 08:00] VITALS: BP 172/69
[2021-11-19] MEDS: CLONIDINE HCL 0.1 MG TABLET PO PRN (08:08)
[2021-11-19] MEDS: LEVOTHYROXINE SODIUM 88 MCG TABLET PO SCH (08:08)
[2021-11-19] MEDS: CEFTAROLINE FOSAMIL ACETATE IV SCH ×2 (08:11→20:03)
[2021-11-19] MEDS: D5W IV SCH ×2 (08:11→20:03)
[2021-11-19] MEDS: PROSOURCE / PROSTAT (PYXIS) 30 ML UDC GT SCH ×2 (08:11→16:27)
[2021-11-19 08:45] LABS: PHOSPHORUS 8.1 mg/dL (2.5-4.9)
--- NOTE | 2021-11-19 09:18 | NUR ---
RN NOTES RECEIVED CALL FROM SENIOR PORTFOLIO MANAGERChina [employer] GIVEN THAT PT HAD CRITICAL HIGH PHOSPHORUS 8.1, DR MAYFIELD MADE AWARE AND ACKNOWLEDGED.
[2021-11-19] MEDS: METOPROLOL TARTRATE 25 MG TABLET PO SCH ×2 (09:29→21:37)
[2021-11-19] MEDS: DAPTOMYCIN 500 MG in IV NS 0.9% 50 ML IV SCH (09:30)
[2021-11-19] MEDS: INSULIN REGULAR, HUMAN 100 UNIT/ML 3 ML VIAL SQ PRN ×3 (12:19→23:36)
--- NOTE | 2021-11-19 14:19 | NUR ---
RN NOTES OBTAINED CONSENT FROM GRICEL JASVIR KINNEY FOR RIGHT FEMORAL HD CATHETER RE-INSERTION. PROCEDURE DONE BY DR VERA AND PT TOLERATED .
[2021-11-19 16:14] VITALS: BP 146/82
[2021-11-19] MEDS: RIVAROXABAN 10 MG TABLET PO SCH (16:27)
--- NOTE | 2021-11-19 18:03 | NUR ---
RN NOTES HEMODIALYSIS VIA RIGHT GROIN HD CATHETER JUST FINISH NOW WITH 1,400ML OUTPUT PER HD NURSE APRIL. PT TOLERATED HD WITH NO ADVERSE REACTIONS NOTED. S/P HD V/S: BP 117/71M, HR 86, R 20 AND T 98.1F. WILL CONTINUE TO MONITOR.
--- NOTE | 2021-11-19 18:39 | NUR ---
CORONARY CLINICAL SPECIALIST CLOSING NOTES PATIENT IN BED AWAKE AT THIS TIME. HOB ELEVATED. PT IS NON-VERBAL, OPEN EYES TO TACTILE AND VERBAL STIMULI. ON B/L SOFT WRIST RESTRAINT IN PLACE, GOOD CIRCULATION NOTED. ON TRACH SHILEY XLT# 7 CONNECTED TO MECHANICAL VENTILATOR @ SETTINGS OF : AC 12 TV 500 FIO2 35% PEEP 5, TOLERATING SETTINGS WELL. ON TELE MONITOR WITH CURRENT READING OF NSR, HR ON THE 70'S, NO S/S OF CARDIAC DISTRESS NOTED DURING SHIFT. ON NEPRO FEEDING AT 3OCC/HR IN PROGRESS VIA NG-TUBE ON LEFT NARE, TOLERATING WELL. ASPIRATION PRECAUTIONS MAINTAINED. LFA IV ACCESS RIGHT AND JASE PICC LINE BOTH INTACT, PATENT AND FLUSHES WELL. PT TURNED AND REPOSITIONED Q 2HRS AND PRN. ALL NEEDS AND CARE PROVIDED WELL. SAFETY MEASURES IN PLACED: BED ON LOWEST LOCKED POSITION, SIDE RAILS UP X3 AND CALL LIGHT W/I REACH. WILL ENDORSE SALVATORE TO DOCENT COORDINATOR NURSE.
--- NOTE | 2021-11-19 19:35 | NUR ---
RN NOTES RECEIVED ANAIS O ER BED, VENT DEPENDENT, SR ON TELE MONITOR HR- 84, CHECKED NGT PLACEMENT, NEPRO RUNNING @ 30ML/HR, NOT IN DISTRESS, NO P[AIN NOTED, SIDERAILSUPX2, WILL CONTINUE TO MONITOR
[2021-11-19 20:00] VITALS: BP_SYST 114; BP_SYST 136; BP_DIAS 57; BP_DIAS 60; BP_DIAS 61
--- NOTE | 2021-11-19 23:00 | NUR ---
RN NOTES PICC LINE WAS REMOVED PER DR. GALAVIZ'S ORDERED
[2021-11-20] VITALS: BP_SYST 135; BP_DIAS 61; BP_DIAS 81
[2021-11-20 04:00] VITALS: BP 118/56
[2021-11-20] MEDS: INSULIN REGULAR, HUMAN 100 UNIT/ML 3 ML VIAL SQ PRN ×3 (05:38→17:37)
[2021-11-20] MEDS: BLOOD SUGAR DIAGNOSTIC 1 EACH STRIP IN SCH ×3 (05:39→17:37)
--- NOTE | 2021-11-20 06:25 | NUR ---
RN NOTES AWAKE, MORNING CARE RENDERED, NOT IN DISTRESS, NO PAIN NOTED, MORNING CARE RENDERED, SIDERAILSUPX2, PT. NEEDS ATTENDED
[2021-11-20 06:51] LABS: BASOPHILS % (AUTO) 0.2 % (0.0-2.0); EOSINOPHILS % (AUTO) 0.1 % (0.0-6.0); HEMATOCRIT 26 % (33-45); HEMOGLOBIN 8.7 g/dL (11.5-14.8); LYMPHOCYTES # (AUTO) 1.4 K/uL (0.8-4.8); LYMPHOCYTES % (AUTO) 8.1 % (20.0-44.0); MEAN CORPUSCULAR HGB CONC 33 g/dl (31.0-36.0); MEAN CORPUSCULAR VOLUME 96 fL (82-100); MONOCYTES # (AUTO) 0.9 K/uL (0.1-1.30); MONOCYTES % (AUTO) 5.3 % (2.0-12.0); NEUTROPHILS # (AUTO) 14.7 K/uL (1.8-8.9); NEUTROPHILS % (AUTO) 86.3 % (43.0-81.0); PLATELET COUNT (AUTO) 237 K/uL (150-450); RED BLOOD CELL COUNT(AUTO) 2.76 MIL/uL (4.0-5.2); WHITE BLOOD COUNT (AUTO) 17.1 K/uL (4.3-11.0)
--- NOTE | 2021-11-20 07:32 | NUR ---
TIMBER RIDER OPENING NOTES PATIENT RECEIVED AWAKE IN BED IN NO ACUTE SIGNS OF DISTRESS. HOB ELEVATED. PT IS NON-VERBAL, OPEN EYES TO TACTILE AND VERBAL STIMULI. ON B/L SOFT WRIST RESTRAINT IN PLACED, GOOD PERIPHERAL PULSES NOTED. ON TRACH SHILEY XLT# 7 CONNECTED TO MECHANICAL VENTILATOR @ SETTINGS OF : AC 12 TV 500 FIO2 30% PEEP 5, TOLERATING WELL, NO SOB NOTED, SP02 100% AT THIS TIME. TELE MONITOR CURRENTLY SHOWS OF NSR, HR 82, NO S/S OF CARDIAC DISTRESS OBSERVED AT THIS TIME. ON NEPRO FEEDING AT 3OCC/HR IN PROGRESS VIA NG-TUBE ON LEFT NARE, TOLERATING WELL. ASPIRATION PRECAUTIONS MAINTAINED. IV SL ON LFA G#22 INTACT, PATENT AND FLUSHES WELL. PT WITH RIGHT FEMORAL HD CATH IN PLACE WITH DRESSING C/D/I. SAFETY MEASURES IN PLACED: BED ON LOWEST LOCKED POSITION, SIDE RAILS UP X3 AND CALL LIGHT WITHIN REACH.. WILL CONTINUE TO MONITOR PT THROUGHOUT SHIFT.
[2021-11-20 07:35] LABS: CALCIUM, SERUM 7.7 mg/dL (8.5-10.1); CARBON DIOXIDE 24 mmol/L (21-32); CHLORIDE 96 mmol/L (98-107); GLUCOSE 212 mg/dL (74-106); POTASSIUM 3.4 mmol/L (3.5-5.1); SODIUM SERUM 132 mmol/L (136-145)
[2021-11-20 07:37] LABS: UREA NITROGEN, BLOOD 84 mg/dL (7-18)
[2021-11-20 08:00] VITALS: BP 140/65
[2021-11-20] MEDS: D5W IV SCH ×2 (08:09→20:46)
[2021-11-20] MEDS: LEVOTHYROXINE SODIUM 88 MCG TABLET PO SCH (08:09)
[2021-11-20] MEDS: CEFTAROLINE FOSAMIL ACETATE IV SCH ×2 (08:09→20:46)
[2021-11-20] MEDS: PROSOURCE / PROSTAT (PYXIS) 30 ML UDC GT SCH ×2 (08:51→16:36)
[2021-11-20] MEDS: METOPROLOL TARTRATE 25 MG TABLET PO SCH ×2 (08:52→21:29)
[2021-11-20 12:00] VITALS: BP 156/78
[2021-11-20 16:00] VITALS: BP 162/66
[2021-11-20] MEDS: NEPRO 1,000 ML BOTTLE GT PRN (16:02)
[2021-11-20] MEDS: RIVAROXABAN 10 MG TABLET PO SCH (16:38)
--- NOTE | 2021-11-20 18:39 | NUR ---
ZINC CHLORIDE OPERATOR CLOSING NOTES PATIENT IN BED AWAKE AT THIS TIME. HOB ELEVATED. PT IS NON-VERBAL, OPEN EYES TO TACTILE AND VERBAL STIMULI. ON B/L SOFT WRIST RESTRAINT IN PLACE, GOOD CIRCULATION NOTED. HD IN PROGRESS VIA R FEMORAL HD CATH. ON TRACH SHILEY XLT# 7 CONNECTED TO MECHANICAL VENTILATOR @ SETTINGS OF : AC 12 TV 500 FIO2 30% PEEP 5, TOLERATING SETTINGS WELL. ON TELE MONITOR WITH CURRENT READING OF NSR-ST, HR 90-105BPM, NO S/S OF CARDIAC DISTRESS NOTED DURING SHIFT. ON NEPRO FEEDING AT 3OCC/HR IN PROGRESS VIA NG-TUBE ON LEFT NARE, TOLERATING WELL. ASPIRATION PRECAUTIONS MAINTAINED. LFA IV ACCESS G#22 INTACT AND PATENT. PT TURNED AND REPOSITIONED Q 2HRS AND PRN. ALL NEEDS AND CARE PROVIDED WELL. SAFETY MEASURES IN PLACED: BED ON LOWEST LOCKED POSITION, SIDE RAILS UP X3 AND CALL LIGHT W/I REACH. WILL ENDORSE SALVATORE TO STEEL WHEEL ENGRAVER NURSE.
--- NOTE | 2021-11-20 18:44 | NUR ---
RN NOTES HEMODIALYSIS VIA RIGHT GROIN HD CATHETER JUST FINISH NOW WITH 1,300ML OUTPUT PER HD NURSE APRIL. PT TOLERATED HD WITH NO ADVERSE REACTIONS NOTED. S/P HD V/S: BP 167/69, HR 99, R 20 AND T 97.9F. WILL CONTINUE TO MONITOR.
--- NOTE | 2021-11-20 19:25 | NUR ---
TELERN ASLEEP OF THIS TIME. HOB UP TO 45 DEGREES, ON GOING NGT FEEDINGS NEPHRO AT 30 CC/HR TOLERATED WELL. NO RESIDUALS. VENT DEPENDENT, APPEARS COMFORTABLE. SR ON THE MONITOR, CONTINUED MONITORING.
[2021-11-20 20:00] VITALS: BP 114/61
--- NOTE | 2021-11-20 21:12 | NUR ---
RT NOTE PATIENT REC'D TRACHED SHIJAMARI XLT # 7 ON [facility] VENT WITH ORDERED SETTINGS FAY WELL. VENT ALARMS CHECKED AND AUDIBLE. CUFF PRESSURE CHECKED COUNTER MAKER. TRACH SECURE AND IN PROPER POSITION.NO RESPIRATORY DISTRESS NOTED AT THIS TIME. AMBU BAG AT [facility]. WILL CONTINUE TO MONITOR PT T/O SHIFT.
[2021-11-21] VITALS: BP 139/64
[2021-11-21] MEDS: INSULIN REGULAR, HUMAN 100 UNIT/ML 3 ML VIAL SQ PRN ×4 (00:43→17:33)
[2021-11-21] MEDS: BLOOD SUGAR DIAGNOSTIC 1 EACH STRIP IN SCH ×5 (00:43→23:56)
--- NOTE | 2021-11-21 01:04 | NUR ---
telern blood sugar 263 covered with 9 units of regular insulin per sliding scale.
--- NOTE | 2021-11-21 03:00 | NUR ---
TELERN EARLY TOTAL AM CARE, BED BATHED. HAD ANOTHER BM KEPT DRY CLEAN AND COMFORTABLE. REPOSITIONED. HOB UP FEEDINGS RESUMED, LESS THAN 5 CC RESIDUALS. REMAINS SR ON THE MONITOR. CONTINUED MONITORING
[2021-11-21 04:00] VITALS: BP 135/56
--- NOTE | 2021-11-21 06:45 | NUR ---
TELERN BS 241 COVERED WITH 6 UNITS REGULAR INSULIN SQ PER SLIDING SCALE. SALESPERSON JEWELRY AT BEDSIDE
--- NOTE | 2021-11-21 07:05 | NUR ---
RN OPENING NOTE RECEIVED PATIENT IN BED. A/O X1. OPENS EYES. ON [facility] VENT WITH SETTINGS AC 12 TV 500 FI02 30% PEEP 5, SATURATING WELL AT 98%. IN NO APPARENT DISTRESS. PT HAS BILATERAL WRIST SOFT RESTRAINT ON. TELE READING SHOS SR 70's. IV ACCESS ON L FA #22 G, INTACT AND PATENT. RIGHT GROIN HD CATH C/D/I. NGT ON L NOSTRIL, WITH NEPRO RUNNING AT 30 ML/HR. SAFETY MEASURES MAINTAINED. BED IN LOWEST POSITION, BRAKES LOCKED. SIDE RAILS UP X2. CALL LIGHT WITHIN REACH. WILL CONTINUE PLAN OF CARE.
[2021-11-21 08:00] VITALS: BP 152/62
[2021-11-21] MEDS: LEVOTHYROXINE SODIUM 88 MCG TABLET PO SCH (08:29)
[2021-11-21] MEDS: CEFTAROLINE FOSAMIL ACETATE IV SCH ×2 (08:29→20:04)
[2021-11-21] MEDS: METOPROLOL TARTRATE 25 MG TABLET PO SCH ×2 (08:29→21:56)
[2021-11-21] MEDS: D5W IV SCH ×2 (08:29→20:04)
[2021-11-21] MEDS: DAPTOMYCIN 500 MG in IV NS 0.9% 50 ML IV SCH (08:31)
[2021-11-21] MEDS: PROSOURCE / PROSTAT (PYXIS) 30 ML UDC GT SCH ×2 (08:31→17:10)
[2021-11-21 10:15] LABS: CALCIUM, SERUM 7.7 mg/dL (8.5-10.1); CARBON DIOXIDE 21 mmol/L (21-32); CHLORIDE 98 mmol/L (98-107); CREATININE 3.4 mg/dL (0.6-1.3); GLUCOSE 237 mg/dL (74-106); POTASSIUM 3.2 mmol/L (3.5-5.1); SODIUM SERUM 135 mmol/L (136-145); UREA NITROGEN, BLOOD 56 mg/dL (7-18)
[2021-11-21 12:21] LABS: BASOPHILS # (AUTO) 0.1 K/uL (0.0-0.2); BASOPHILS % (AUTO) 0.5 % (0.0-2.0); EOSINOPHILS % (AUTO) 0.2 % (0.0-6.0); HEMATOCRIT 26 % (33-45); HEMOGLOBIN 8.5 g/dL (11.5-14.8); LYMPHOCYTES # (AUTO) 1.6 K/uL (0.8-4.8); LYMPHOCYTES % (AUTO) 9.1 % (20.0-44.0); MEAN CORPUSCULAR HGB CONC 33 g/dl (31.0-36.0); MEAN CORPUSCULAR VOLUME 95 fL (82-100); MONOCYTES # (AUTO) 0.9 K/uL (0.1-1.30); MONOCYTES % (AUTO) 5.2 % (2.0-12.0); NEUTROPHILS # (AUTO) 14.6 K/uL (1.8-8.9); PLATELET COUNT (AUTO) 217 K/uL (150-450); RED BLOOD CELL COUNT(AUTO) 2.72 MIL/uL (4.0-5.2); WHITE BLOOD COUNT (AUTO) 17.1 K/uL (4.3-11.0)
[2021-11-21] MEDS ORDERED: ALBUMIN 25% 25 GM in PREMIX 1 EA IV PRN (14:30)
[2021-11-21 16:00] VITALS: BP 110/50
[2021-11-21] MEDS: RIVAROXABAN 10 MG TABLET PO SCH (17:11)
--- NOTE | 2021-11-21 18:03 | NUR ---
RN CLOSING NOTE PATIENT RESTING IN BED. A/O X1. ON [facility] VENT WITH SAME SETTINGS AC 12 TV 500 FI02 30% PEEP 5, SATURATING WELL AT 99%. NO S/S OF RESPIRATORY DISTRESS. PT HAS BILATERAL WRIST SOFT RESTRAINT ON, ASSESSED REGULARLY. TELE READING SHOWS SR 70s to 80s. IV ACCESS ON L FA #22 G, INTACT AND PATENT. RIGHT GROIN HD CATH C/D/I. HD +222 INTAKE, BPS RUNNING LOW THROUGH TREATMENT. NGT ON L NOSTRIL, WITH NEPRO RUNNING AT 30 ML/HR, NO RESIDUAL. DUE MEDS GIVEN ORDERED. SAFETY MEASURES MAINTAINED. BED IN LOWEST POSITION, BRAKES LOCKED. SIDE RAILS UP X2. KEPT CALL LIGHT WITHIN REACH. WILL ENDORSE CONTINUITY OF CARE TO INCOMING SHIFT.
--- NOTE | 2021-11-21 19:29 | NUR ---
MENTAL HYGIENIST OPENING NOTE PATIENT RECEIVED ASLEEP IN BED. PATIENT A/OX1, NON-VERBAL; OPENS EYES. NO S/S OF DISTRESS, BREATHING BY VENT W/ NO OBSTRUCTION OR NEGATIVE FINDINGS. SAFETY MEASURES FOLLOWED: BED AT LOWEST POSITION, RAILS UP X2, CALL GARCÍA WITHIN REACH. WILL CONTINUE TO MONITOR PATIENT.
[2021-11-21 20:43] VITALS: BP 142/59
[2021-11-21] MEDS: INSULIN GLARGINE, 100 UNIT/ML CARTRIDGE SQ SCH (22:56)
[2021-11-22] MEDS: INSULIN REGULAR, HUMAN 100 UNIT/ML 3 ML VIAL SQ PRN ×3 (00:01→11:38)
[2021-11-22 01:21] VITALS: BP 145/63
[2021-11-22] MEDS: NEPRO 1,000 ML BOTTLE GT PRN (03:27)
[2021-11-22] MEDS: BLOOD SUGAR DIAGNOSTIC 1 EACH STRIP IN SCH ×3 (05:57→18:37)
--- NOTE | 2021-11-22 06:29 | NUR ---
COOKER MECHANIC CLOSING NOTE PATIENT IS ASLEEP IN BED. A/OX1 (EYE OPENING). NO S/S OF DISTRESS, BREATHING SYMMETRICAL. CAP REFILL <3SECS. PROPERTY CONDITION ASSESSOR REPORTS SR 89. SAFETY MEASURES IN PLACE: BED AT LOWEST POSITION, RAILS UP X2, CALL GARCÍA WITHIN REACH. WILL ENDORSE TO NEXT SHIFT FOR SALVATORE.
[2021-11-22 06:34] LABS: BASOPHILS % (AUTO) 0.1 % (0.0-2.0); EOSINOPHILS % (AUTO) 0.3 % (0.0-6.0); HEMATOCRIT 24 % (33-45); HEMOGLOBIN 7.9 g/dL (11.5-14.8); LYMPHOCYTES # (AUTO) 1.3 K/uL (0.8-4.8); LYMPHOCYTES % (AUTO) 7.6 % (20.0-44.0); MEAN CORPUSCULAR HGB CONC 33 g/dl (31.0-36.0); MEAN CORPUSCULAR VOLUME 95 fL (82-100); MONOCYTES # (AUTO) 0.9 K/uL (0.1-1.30); MONOCYTES % (AUTO) 5.3 % (2.0-12.0); NEUTROPHILS # (AUTO) 14.8 K/uL (1.8-8.9); NEUTROPHILS % (AUTO) 86.7 % (43.0-81.0); PLATELET COUNT (AUTO) 216 K/uL (150-450); RED BLOOD CELL COUNT(AUTO) 2.53 MIL/uL (4.0-5.2); WHITE BLOOD COUNT (AUTO) 17.1 K/uL (4.3-11.0)
[2021-11-22 07:23] LABS: CALCIUM, SERUM 8.5 mg/dL (8.5-10.1); CARBON DIOXIDE 28 mmol/L (21-32); CHLORIDE 98 mmol/L (98-107); CREATININE 3.1 mg/dL (0.6-1.3); GLUCOSE 178 mg/dL (74-106); POTASSIUM 3.3 mmol/L (3.5-5.1); SODIUM SERUM 135 mmol/L (136-145); UREA NITROGEN, BLOOD 51 mg/dL (7-18)
--- NOTE | 2021-11-22 07:30 | NUR ---
RN OPENING NOTE RECEIVED PATIENT IN BED. A/O X1. EYES OPEN WITH SPONTANEOUS MOVEMENT. PT IS NONVERBAL ON [facility] VENT WITH SETTINGS AC 12 TV 500 FI02 30% PEEP 5, SATURATING WELL AT 98-99% WITH NO APPARENT DISTRESS. PT HAS BILATERAL WRIST SOFT RESTRAINT ON. TELE MONITOR SHOWS SR 80's. IV ACCESS ON L FA #22 G, INTACT AND PATENT. RIGHT GROIN HD CATH C/D/I. NGT ON L NOSTRIL, WITH NEPRO RUNNING AT 30 ML/HR. SAFETY MEASURES MAINTAINED. BED LOCKED, IN LOWEST POSITION, SIDE RAILS UP X2 AND CALL LIGHT WITHIN REACH. WILL CONTINUE TO MONITOR PATIENT THROUGHOUT SHIFT.
[2021-11-22 08:00] VITALS: BP 142/75
[2021-11-22] MEDS: D5W IV SCH ×2 (08:25→21:09)
[2021-11-22] MEDS: LEVOTHYROXINE SODIUM 88 MCG TABLET PO SCH (08:25)
[2021-11-22] MEDS: CEFTAROLINE FOSAMIL ACETATE IV SCH ×2 (08:25→21:09)
[2021-11-22] MEDS: METOPROLOL TARTRATE 25 MG TABLET PO SCH ×3 (08:33→21:09)
[2021-11-22] MEDS: PROSOURCE / PROSTAT (PYXIS) 30 ML UDC GT SCH ×2 (09:09→17:00)
[2021-11-22] MEDS ORDERED: PROSOURCE / PROSTAT (PYXIS) 30 ML UDC GT SCH (13:00)
--- NOTE | 2021-11-22 13:57 | NUR ---
RN NOTES NG TUBE FEED RUNNING NEPRO 30ML/HR WAS STOPPED @ 1345 PER OR NURSEKAL PREP FOR PROCEDURE THIS EVENING.
--- NOTE | 2021-11-22 15:30 | NUR ---
RN NOTES PATIENT'S SON, NIRMAL TAY, WAS CONTACTED FOR SURGICAL CONSENT INCLUDING BLOOD AND ANESTHESIA. NIRMAL PROVIDED OVER THE PHONE CONSENT AND VERBALIZED FULL UNDERSTANDING OF PROCEDURE. CONSENTS WERE VERIFIED BY TWO RN's, SEGUNDO AND PAO.
[2021-11-22 16:00] VITALS: BP 167/72
[2021-11-22] MEDS: RIVAROXABAN 10 MG TABLET PO SCH (17:00)
--- NOTE | 2021-11-22 18:56 | NUR ---
RN CLOSING NOTES PATIENT IN BED. A/O X1. EYES OPEN WITH SPONTANEOUS MOVEMENT. PT IS NONVERBAL ON [facility] VENT WITH SETTINGS AC 12 TV 500 FI02 30% PEEP 5, SATURATING WELL AT 98-99% WITH NO APPARENT DISTRESS. PT HAS BILATERAL WRIST SOFT RESTRAINT ON. TELE MONITOR SHOWS SR 81 BPM. IV ACCESS ON L FA G#22, INTACT AND PATENT. RIGHT GROIN HD CATH C/D/I. EGD ASSISTED PEG PLACEMENT DONE AT BEDSIDE @ [address] LEBLANC. NGT REMOVED. REMAIN NPO & RESUME TUBE FEEDINGS TOMORROW MORNING 11/23/21 PER MD ORDER. SAFETY MEASURES MAINTAINED: BED LOCKED, IN LOWEST POSITION, HEAD OF BED ELEVATED, SIDE RAILS UP X2 AND CALL LIGHT WITHIN REACH. WILL ENDORSE TO THE FELT FINISHER NURSE FOR [place].
--- NOTE | 2021-11-22 19:53 | NUR ---
RN OPENING NOTES RECEIVED PATIENT IN BED. A/O X1, EYES OPEN WITH SPONTANEOUS MOVEMENT, AND NONVERBAL. ON [facility] VENT AND TOLERATING WELL. NO SOB NOTED. NO S/SX OF RESPIRATORY DISTRESS NOTED. PT HAS BILATERAL WRIST SOFT RESTRAINT ON. TELE MONITOR DETECTS SINUS RHYTHM WITHR RATE OF 82 BPM. IV ACCESS ON L FA G#22, INTACT AND PATENT. RIGHT GROIN HD CATH C/D/I. EGD ASSISTED PEG PLACEMENT DONE AT BEDSIDE @ [address] LEBLANC. NGT REMOVED. REMAIN NPO & RESUME TUBE FEEDINGS TOMORROW MORNING 11/23/21 PER MD ORDER. SAFETY MEASURES MAINTAINED: BED LOCKED, IN LOWEST POSITION, HEAD OF BED ELEVATED, SIDE RAILS UP X2 AND CALL LIGHT WITHIN REACH. WILL ENDORSE TO THE TRACK REPAIR SUPERVISOR NURSE FOR [place]. Addendum: 11/22/21 at 1959 by MACK MORRISON RN RN OPENING NOTES RECEIVED PATIENT IN BED. A/O X1, EYES OPEN WITH SPONTANEOUS MOVEMENT, AND NONVERBAL. ON [facility] VENT AND TOLERATING WELL. NO SOB NOTED. NO S/SX OF RESPIRATORY DISTRESS NOTED. PT HAS BILATERAL WRIST SOFT RESTRAINT ON. TELE MONITOR DETECTS SINUS RHYTHM WITH RATE OF 82 BPM. IV ACCESS ON L FA G#22, AND RIGHT GROIN HD CATH. IV ACCESS IS INTACT, PATENT, AND FLUSHING WELL. S/P EGD, PEG PLACEMENT DONE AT BEDSIDE @ [address] LEBLANC. NGT REMOVED. REMAIN NPO & RESUME TUBE FEEDINGS TOMORROW MORNING 11/23/21 PER MD ORDER. SAFETY MEASURES MAINTAINED: BED LOCKED, IN LOWEST POSITION, HEAD OF BED ELEVATED, SIDE RAILS UP X2. TABLE AND CALL LIGHT WITHIN REACH. WILL CONTINUE TO MONITOR.
[2021-11-22 20:00] VITALS: BP 157/50
[2021-11-22] MEDS: INSULIN GLARGINE, 100 UNIT/ML CARTRIDGE SQ SCH (21:20)
--- NOTE | 2021-11-22 21:20 | NUR ---
DID NOT ADMINISTER LANTUS BECAUSE BLOOD SUGAR IS 141 AND PATIENT WILL BE NPO ALL NIGHT.
--- NOTE | 2021-11-22 22:07 | NUR ---
DID NOT ADMINISTER METOPROLOL PER ORDER, ITALO PERRY, BECAUSE OF NEW G-TUBE. HE STATED TO "WAIT TO BEGIN TO USE IT UNTIL THE AM SHIFT."
[2021-11-23] VITALS: BP 156/43
[2021-11-23] MEDS: BLOOD SUGAR DIAGNOSTIC 1 EACH STRIP IN SCH ×5 (00:24→23:25)
[2021-11-23] MEDS: INSULIN REGULAR, HUMAN 100 UNIT/ML 3 ML VIAL SQ PRN ×5 (00:25→23:27)
--- NOTE | 2021-11-23 00:25 | NUR ---
DID NOT ADMINISTER INSULIN BECAUSE PATIENT IS NPO.
[2021-11-23 04:00] VITALS: BP 159/42
--- NOTE | 2021-11-23 05:35 | NUR ---
DID NOT ADMINISTER INSULIN BECAUSE PATIENT IS NPO.
--- NOTE | 2021-11-23 06:52 | NUR ---
RN CLOSING NOTES RECEIVED PATIENT IN BED. A/O X1, EYES OPEN WITH SPONTANEOUS MOVEMENT, AND NONVERBAL. ON [facility] AND TOLERATING WELL. NO SOB NOTED. NO S/SX OF RESPIRATORY DISTRESS NOTED. PT HAS BILATERAL WRIST SOFT RESTRAINT ON. TELE MONITOR DETECTS SINUS RHYTHM WITH RATE OF 82 BPM. IV ACCESS ON L FA G#22, AND RIGHT GROIN HD CATH. IV ACCESS IS INTACT, PATENT, AND FLUSHING WELL. S/P EGD, PEG PLACEMENT DONE AT BEDSIDE @ [address] LEBLANC. NGT REMOVED. REMAIN NPO & RESUME TUBE FEEDINGS TOMORROW MORNING 11/23/21 PER MD ORDER. ALL NEEDS MET. PT KEPT CLEAN AND DRY. SAFETY MEASURES MAINTAINED: BED LOCKED, IN LOWEST POSITION, HEAD OF BED ELEVATED, SIDE RAILS UP X2. TABLE AND CALL LIGHT WITHIN REACH. WILL ENDORSE TO ONCOMING SHIFT FOR SALVATORE.
--- NOTE | 2021-11-23 07:30 | NUR ---
RESPIRATORY THERAPY MANAGER NOTES PT IN BED, AWAKE, ALERT TO SELF, NON VERBAL, NO SIGN OF PAIN OR DISTRESS, NEW GT IN PLACE, RECEIVED INSTRUCTIONS TO START GT FEEDING THIS MORNING, ON VENT/TRACH, KEPT WARM AND COMFORTABLE IN BED.
[2021-11-23 08:00] VITALS: BP 155/78
[2021-11-23] MEDS: CEFTAROLINE FOSAMIL ACETATE IV SCH ×2 (08:38→20:49)
[2021-11-23] MEDS: D5W IV SCH ×2 (08:38→20:49)
[2021-11-23] MEDS: DAPTOMYCIN 500 MG in IV NS 0.9% 50 ML IV SCH (09:54)
[2021-11-23] MEDS: PROSOURCE / PROSTAT (PYXIS) 30 ML UDC GT SCH ×2 (09:54→17:07)
[2021-11-23] MEDS: METOPROLOL TARTRATE 25 MG TABLET PO SCH ×2 (09:55→20:48)
[2021-11-23] MEDS: LEVOTHYROXINE SODIUM 88 MCG TABLET PO SCH (09:55)
[2021-11-23] MEDS: NEPRO 1,000 ML BOTTLE GT SCH (09:56)
[2021-11-23 11:28] LABS: BASOPHILS # (AUTO) 0.1 K/uL (0.0-0.2); BASOPHILS % (AUTO) 1.3 % (0.0-2.0); HEMATOCRIT 23 % (33-45); HEMOGLOBIN 7.6 g/dL (11.5-14.8); LYMPHOCYTES % (AUTO) 9.8 % (20.0-44.0); MEAN CORPUSCULAR HGB CONC 33 g/dl (31.0-36.0); MEAN CORPUSCULAR VOLUME 95 fL (82-100); MONOCYTES # (AUTO) 0.6 K/uL (0.1-1.30); NEUTROPHILS # (AUTO) 8.6 K/uL (1.8-8.9); NEUTROPHILS % (AUTO) 81.9 % (43.0-81.0); PLATELET COUNT (AUTO) 223 K/uL (150-450); RED BLOOD CELL COUNT(AUTO) 2.41 MIL/uL (4.0-5.2); WHITE BLOOD COUNT (AUTO) 10.5 K/uL (4.3-11.0)
[2021-11-23 11:37] LABS: CALCIUM, SERUM 7.8 mg/dL (8.5-10.1); CARBON DIOXIDE 23 mmol/L (21-32); CHLORIDE 98 mmol/L (98-107); CREATININE 4.7 mg/dL (0.6-1.3); GLUCOSE 183 mg/dL (74-106); POTASSIUM 3.5 mmol/L (3.5-5.1); SODIUM SERUM 136 mmol/L (136-145); UREA NITROGEN, BLOOD 74 mg/dL (7-18)
[2021-11-23 12:00] VITALS: BP 135/71
[2021-11-23 16:00] VITALS: BP 162/60
[2021-11-23] MEDS: RIVAROXABAN 10 MG TABLET PO SCH (17:08)
--- NOTE | 2021-11-23 18:15 | NUR ---
ROLLER INSPECTOR AND MENDER NOTES PT IN BED, AWAKE, NON VERBAL, NO SIGN OF PAIN OR DISTRESS, NO FACIAL GRIMACING, ON VENT/TRACH, SECRETIONS SUCTIONED NEEDED, GT FEEDING RESTARTED ORDERED, TOLERATES WELL, KEPT HOB ELEVATED, COMPLETED HEMODIALYSIS TODAY, TOLERATED WELL WITH 1L OUTPUT, PM CARE PROVIDED, KEPT CLEAN AND DRY.
--- NOTE | 2021-11-23 19:36 | NUR ---
RN OPENING NOTES RECEIVED PATIENT IN BED. A/O X1, EYES OPEN WITH SPONTANEOUS MOVEMENT, AND NONVERBAL. ON [facility] AND TOLERATING WELL. NO SOB NOTED. NO S/SX OF RESPIRATORY DISTRESS NOTED. PT HAS BILATERAL WRIST SOFT RESTRAINT ON. TELE MONITOR DETECTS SINUS RHYTHM WITH RATE OF 84 BPM. IV ACCESS ON R HAND #22, AND RIGHT GROIN HD CATH. IV ACCESS IS INTACT, PATENT, AND FLUSHING WELL. G-TUBE FEEDING, NEPRO, RUNNING @ 45 ML/HR. SAFETY MEASURES MAINTAINED: BED LOCKED, IN LOWEST POSITION, HEAD OF BED ELEVATED, SIDE RAILS UP X2. TABLE AND CALL LIGHT WITHIN REACH. WILL CONTINUE TO MONITOR.
[2021-11-23 20:00] VITALS: BP 141/63
[2021-11-23] MEDS: INSULIN GLARGINE, 100 UNIT/ML CARTRIDGE SQ SCH (21:31)
[2021-11-23] MEDS: CLONIDINE HCL 0.1 MG TABLET PO PRN (23:33)
[2021-11-24] VITALS: BP 171/76
[2021-11-24 04:00] VITALS: BP 142/58
[2021-11-24] MEDS: BLOOD SUGAR DIAGNOSTIC 1 EACH STRIP IN SCH ×5 (05:32→23:52)
[2021-11-24] MEDS: INSULIN REGULAR, HUMAN 100 UNIT/ML 3 ML VIAL SQ PRN ×4 (05:34→23:50)
--- NOTE | 2021-11-24 06:24 | NUR ---
RN CLOSING NOTES PATIENT IN BED. A/O X1, EYES OPEN WITH SPONTANEOUS MOVEMENT, AND NONVERBAL. ON [facility] AND TOLERATING WELL. NO SOB NOTED. NO S/SX OF RESPIRATORY DISTRESS NOTED. PT HAS BILATERAL WRIST SOFT RESTRAINT. TELE MONITOR DETECTS SINUS RHYTHM WITH RATE OF 84 BPM. IV ACCESS ON R HAND #22, AND RIGHT GROIN HD CATH. IV ACCESS IS INTACT, PATENT, AND FLUSHING WELL. G-TUBE FEEDING, NEPRO, RUNNING @ 45 ML/HR. ALL NEEDS MET. PT KEPT CLEAN AND DRY. SAFETY MEASURES MAINTAINED: BED LOCKED, IN LOWEST POSITION, HEAD OF BED ELEVATED, SIDE RAILS UP X2. TABLE AND CALL LIGHT WITHIN REACH. WILL ENDORSE TO ONCOMING SHIFT FOR SALVATORE.
[2021-11-24] MEDS: LEVOTHYROXINE SODIUM 88 MCG TABLET PO SCH (06:45)
[2021-11-24 07:00] LABS: BASOPHILS # (AUTO) 0.1 K/uL (0.0-0.2); BASOPHILS % (AUTO) 0.5 % (0.0-2.0); EOSINOPHILS % (AUTO) 0.9 % (0.0-6.0); HEMATOCRIT 22 % (33-45); HEMOGLOBIN 7.2 g/dL (11.5-14.8); LYMPHOCYTES # (AUTO) 1.3 K/uL (0.8-4.8); LYMPHOCYTES % (AUTO) 11.5 % (20.0-44.0); MEAN CORPUSCULAR HGB CONC 33 g/dl (31.0-36.0); MEAN CORPUSCULAR VOLUME 95 fL (82-100); MONOCYTES # (AUTO) 0.6 K/uL (0.1-1.30); MONOCYTES % (AUTO) 5.6 % (2.0-12.0); NEUTROPHILS # (AUTO) 9.2 K/uL (1.8-8.9); NEUTROPHILS % (AUTO) 81.5 % (43.0-81.0); PLATELET COUNT (AUTO) 215 K/uL (150-450); RED BLOOD CELL COUNT(AUTO) 2.31 MIL/uL (4.0-5.2); WHITE BLOOD COUNT (AUTO) 11.2 K/uL (4.3-11.0)
[2021-11-24] MEDS: D5W IV SCH ×2 (07:32→19:53)
[2021-11-24] MEDS: CEFTAROLINE FOSAMIL ACETATE IV SCH ×2 (07:32→19:53)
[2021-11-24 07:35] LABS: CALCIUM, SERUM 8.2 mg/dL (8.5-10.1); CARBON DIOXIDE 24 mmol/L (21-32); CHLORIDE 99 mmol/L (98-107); CREATININE 3.2 mg/dL (0.6-1.3); GLUCOSE 203 mg/dL (74-106); POTASSIUM 3.2 mmol/L (3.5-5.1); SODIUM SERUM 135 mmol/L (136-145); UREA NITROGEN, BLOOD 46 mg/dL (7-18)
--- NOTE | 2021-11-24 07:42 | NUR ---
PETROLEUM SUPPLY SPECIALIST OPENING NOTES RECEIVED PATIENT IN BED. A/O X1, EYES OPEN WITH SPONTANEOUS MOVEMENT, AND NONVERBAL. ON [facility] VENT, TOLERATING VENT SETTINGS WELL AT THIS TIME. NO SOB NOTED. NO S/SX OF RESPIRATORY DISTRESS NOTED. PT HAS BILATERAL WRIST SOFT RESTRAINT. TELE MONITOR WITH A CURRENT READING OF SR 83. IV ACCESS ON R HAND #22, AND RIGHT GROIN HD CATH. IV ACCESS IS INTACT, PATENT, AND FLUSHING WELL. G-TUBE FEEDING, NEPRO, RUNNING @ 45 ML/HR. SAFETY PRECAUTIONS IN PLACE; BED IN LOW POSITION AND LOCKED, RAILS UP X2, CALL LIGHT WITHIN REACH. WILL CONTINUE TO MONITOR PATIENT.
--- NOTE | 2021-11-24 07:45 | NUR ---
RT NOTE PLACED PT ON SIMV MODE PER MD ORDER. MARVIN LOPEZ AWARE OF CHANGES. NO SOB NOTED AT THIS TIME. WILL CONTINUE TO MONITOR.
[2021-11-24 08:20] VITALS: BP 128/61
[2021-11-24] MEDS: METOPROLOL TARTRATE 25 MG TABLET PO SCH ×2 (08:31→21:14)
[2021-11-24] MEDS: PROSOURCE / PROSTAT (PYXIS) 30 ML UDC GT SCH ×2 (08:31→16:46)
--- NOTE | 2021-11-24 08:45 | NUR ---
RT POST ABG RESULTS SHOWN TO DR. HERNANDEZ. NO CHANGES AT THIS TIME. RN NOTIFIED AND AWARE.
[2021-11-24 09:01] LABS: ABG BASE EXCESS -0.2 mmol/L; ABG OXYGEN SATURATION 96.5 % (92.0-98.5); ABG PCO2 32.5 mmHg (35.0-45.0); ABG PH 7.472 (7.350-7.450); ABG PO2 89.2 mmHg (75.0-100.0); AaDO2 86.5 mmHg; COHb 0.3 % (0.5-1.5); MetHb 0.3 % (0.0-1.5); O2Hb 95.9 % (94.0-97.0); PEEP,BG 5 cm H2O; SITE, ABG Left Radial; VT, ABG 500 mL
[2021-11-24 12:43] VITALS: BP 142/61
[2021-11-24 16:08] VITALS: BP 166/68
[2021-11-24] MEDS: RIVAROXABAN 10 MG TABLET PO SCH (16:46)
--- NOTE | 2021-11-24 18:28 | NUR ---
TREADLE CUT OFF SAW OPERATOR CLOSING NOTES PATIENT REMAINS IN BED. A/O X1, EYES OPEN WITH SPONTANEOUS MOVEMENT, AND NONVERBAL. ON [facility] VENT, TOLERATING VENT SETTINGS WELL DURING SHIFT. NO SOB NOTED. NO S/SX OF RESPIRATORY DISTRESS NOTED. PT HAS BILATERAL WRIST SOFT RESTRAINT. TELE MONITOR WITH A CURRENT READING OF SR 80S. IV ACCESS ON L WRIST G #24, AND RIGHT GROIN HD CATH. IV ACCESS IS INTACT, PATENT, AND FLUSHING WELL. G-TUBE FEEDING, NEPRO, RUNNING @ 45 ML/HR. ALL NEEDS ATTENDED DURING THE DAY. SAFETY PRECAUTIONS IN PLACE; BED IN LOW POSITION AND LOCKED, RAILS UP X2, CALL LIGHT WITHIN REACH. WILL ENDORSE TO NUCLEAR WEAPONS SPECIALIST NURSE FOR SALVATORE.
--- NOTE | 2021-11-24 19:07 | NUR ---
FITNESS TECHNICIAN CLOSING NOTES PATIENT RECEIVED IN BED. A/O X1, EYES OPEN WITH SPONTANEOUS MOVEMENT, AND NONVERBAL. ON [facility] VENT, TOLERATING VENT SETTINGS WELL DURING SHIFT. NO SOB NOTED. NO S/SX OF RESPIRATORY DISTRESS NOTED. PT HAS BILATERAL WRIST SOFT RESTRAINT. TELE MONITOR WITH A CURRENT READING OF SR 80S. IV ACCESS ON L WRIST G #24, AND RIGHT GROIN HD CATH. IV ACCESS IS INTACT, PATENT, AND FLUSHING WELL. G-TUBE FEEDING, NEPRO, RUNNING @ 45 ML/HR. ALL NEEDS ATTENDED AT THIS TIME. SAFETY PRECAUTIONS IN PLACE; BED IN LOW POSITION AND LOCKED, RAILS UP X2, CALL LIGHT WITHIN REACH. WILL CONTINUE TO MONITOR.
[2021-11-24 20:00] VITALS: BP 143/65
[2021-11-24] MEDS: INSULIN GLARGINE, 100 UNIT/ML CARTRIDGE SQ SCH (21:36)
[2021-11-25] VITALS (7 sets, daily range): BP systolic 100–167; BP diastolic 49–84
[2021-11-25] MEDS: CLONIDINE HCL 0.1 MG TABLET PO PRN (04:26)
--- NOTE | 2021-11-25 04:32 | NUR ---
CELLAR PACKER NOTES PRN CLONIDINE GIVEN FOR SBP 162 WILL CONTINUE TO MONITOR.
[2021-11-25] MEDS: BLOOD SUGAR DIAGNOSTIC 1 EACH STRIP IN SCH ×3 (05:56→17:19)
[2021-11-25] MEDS: INSULIN REGULAR, HUMAN 100 UNIT/ML 3 ML VIAL SQ PRN ×4 (05:58→23:09)
--- NOTE | 2021-11-25 06:53 | NUR ---
COMMUNITY THEATER ACTOR CLOSING NOTES PATIENT RECEIVED IN BED. A/O X1, EYES OPEN WITH SPONTANEOUS MOVEMENT, AND NONVERBAL. ON [facility] VENT, TOLERATING VENT SETTINGS WELL DURING SHIFT. NO SOB NOTED. NO S/SX OF RESPIRATORY DISTRESS NOTED. PT HAS BILATERAL WRIST SOFT RESTRAINT. TELE MONITOR WITH A CURRENT READING OF SR 80S. IV ACCESS ON L WRIST G #24, AND RIGHT GROIN HD CATH. IV ACCESS IS INTACT, PATENT, AND FLUSHING WELL. G-TUBE FEEDING, NEPRO, RUNNING @ 45 ML/HR. ALL NEEDS ATTENDED AT THIS TIME. SAFETY PRECAUTIONS IN PLACE; BED IN LOW POSITION AND LOCKED, RAILS UP X2, CALL LIGHT WITHIN REACH. WILL endorse care to day shift nurse.
--- NOTE | 2021-11-25 07:50 | NUR ---
tele health assistant: notes r.t at bedside to wean off pt. tracheostomy intact and secured at midline with fio2 in use @ 40% via cool aerosol. satting at 100%. will continue to monitor.
[2021-11-25] MEDS: D5W IV SCH ×2 (07:58→22:21)
[2021-11-25] MEDS: CEFTAROLINE FOSAMIL ACETATE IV SCH ×2 (07:58→22:21)
--- NOTE | 2021-11-25 08:15 | NUR ---
RT PER MD ORDER PATIENT PLACED ON COOL AEROSOL TRIAL VIA T-PIECE 3L TOLERATED WELL. AIRWAY SUCTIONED AND PATENT. AMBU BAG AT HOB Addendum: 11/25/21 at 1031 by KENNETH BEAN RT Amended: Links added.
[2021-11-25] MEDS: METOPROLOL TARTRATE 25 MG TABLET PO SCH ×2 (08:27→23:09)
--- NOTE | 2021-11-25 08:27 | NUR ---
tele animal hospital clerk: notes held beta delia med due to possible hd tx today and diastolic of 58. pt tolerating cool aerosol at 40%. will continue to monitor.
[2021-11-25] MEDS: LEVOTHYROXINE SODIUM 88 MCG TABLET PO SCH (08:32)
[2021-11-25] MEDS: PROSOURCE / PROSTAT (PYXIS) 30 ML UDC GT SCH ×2 (08:32→18:27)
[2021-11-25] MEDS: DAPTOMYCIN 500 MG in IV NS 0.9% 50 ML IV SCH (09:00)
[2021-11-25 09:35] LABS: ABG BASE EXCESS -0.3 mmol/L; ABG PCO2 36.2 mmHg (35.0-45.0); ABG PO2 173.6 mmHg (75.0-100.0); COHb 1.2 % (0.5-1.5); MetHb 0.3 % (0.0-1.5); O2Hb 97.8 % (94.0-97.0); SITE, ABG Right Radial; VENT MODE, BG COOL AEROSOL T-PIECE 40%
--- NOTE | 2021-11-25 09:39 | NUR ---
tele car stower: notes herlinda ([email or web address]) called and informed me that pt's abg is good and titrated her fio2 at 30% and satting at 100%. no s/s of resp. distress noted. will continue to monitor.
--- NOTE | 2021-11-25 10:26 | NUR ---
tele package lift operator: nephro f/u seen by dr. mendes with hd tx order for today. order acknowledged.
--- NOTE | 2021-11-25 11:00 | NUR ---
tele dental technician metal: notes titrated pt down to 1l via cool aerosol by nena herrera here and aware. no s/s of resp. distress noted.
--- NOTE | 2021-11-25 15:00 | NUR ---
tele buggy loader: notes pt resting comfortable with eyes close. hob elevated. remains on 1l/min via cool aerosol. tracheostomy remains intact and secured. no apparent distress noted. will continue to monitor.
--- NOTE | 2021-11-25 15:55 | NUR ---
tele c d reactor operator: notes hd nurse here and preparing pt for hd tx. will continue to monitor.
[2021-11-25] MEDS: RIVAROXABAN 10 MG TABLET PO SCH (17:00)
--- NOTE | 2021-11-25 17:36 | NUR ---
tele mesh man: notes dr. parks notified re: xarelto med, informed md that her dose yesterday was held due to hgb=7.2 and pt has no cbc today with order to hold dose today. order read back and dose held as ordered. pt scheduled for cbc tomorrow, md aware.
--- NOTE | 2021-11-25 18:28 | NUR ---
tele supervisor rice milling: notes hd completed with 2 liters removed per hd nurse. pt tolerated well. needs attended. pt tolerating 1l/via trach aerosol. no s/s of resp. distress noted. will continue to monitor.
--- NOTE | 2021-11-25 19:00 | NUR ---
tele research statistician: notes bedside report given to talia valladares) for continuity of care.
--- NOTE | 2021-11-25 20:07 | NUR ---
ESTATE PLANNING ATTORNEY OPENING NOTE: RECEIVED REPORT AT PATIENT'S BEDSIDE. PATIENT IN NAD AT THIS TIME, VSS. EYES OPEN AND RESPONSIVE TO VOICE COMMAND. CURRENTLY ON 1L O2 TO TRACH, SpO2 99%. LUNG SOUNDS WITH FINE CRACKLES TO BLL. SCANT EDEMA TO LUE OBSERVED. LFA #24 TO SL FLUSHED WITHOUT COMPLICATION OR EVIDENCE OF INFILTRATION. G-TUBE PATENT AND RUNNING NEPRO @ 45ML/HR, CHECKED FOR RESIDUAL - NONE OBSERVED. 100ML FREE H20 ADMINISTERED. BILATERAL SOFT WRIST RESTRAINTS IN PLACE, RELEASE ATTEMPTED, PATIENT ATTEMPTING TO PULL AT G-TUBE AND TRACH LINE. RESTRAINTS REAPPLIED. BED IN LOW, LOCKED POSITION. MONITOR AND BED ALARMS ON. HOB ELEVATED TO SEMI-CLARKE'S POSITION. PATIENT ROUNDED ON Q1 HR.
[2021-11-25] MEDS: INSULIN GLARGINE, 100 UNIT/ML CARTRIDGE SQ SCH (23:11)
[2021-11-25] MEDS: NEPRO 1,000 ML BOTTLE GT SCH (23:55)
[2021-11-26] VITALS: BP 134/57
[2021-11-26] MEDS: BLOOD SUGAR DIAGNOSTIC 1 EACH STRIP IN SCH ×5 (01:43→23:02)
[2021-11-26] MEDS: INSULIN REGULAR, HUMAN 100 UNIT/ML 3 ML VIAL SQ PRN ×4 (06:03→23:22)
[2021-11-26] MEDS: LEVOTHYROXINE SODIUM 88 MCG TABLET PO SCH (06:04)
[2021-11-26 06:37] LABS: BASOPHILS # (AUTO) 0.1 K/uL (0.0-0.2); BASOPHILS % (AUTO) 0.6 % (0.0-2.0); EOSINOPHILS % (AUTO) 1.9 % (0.0-6.0); HEMATOCRIT 22 % (33-45); HEMOGLOBIN 7.4 g/dL (11.5-14.8); LYMPHOCYTES # (AUTO) 1.1 K/uL (0.8-4.8); LYMPHOCYTES % (AUTO) 9.9 % (20.0-44.0); MEAN CORPUSCULAR HGB CONC 33 g/dl (31.0-36.0); MEAN CORPUSCULAR VOLUME 94 fL (82-100); MONOCYTES # (AUTO) 0.6 K/uL (0.1-1.30); MONOCYTES % (AUTO) 5.7 % (2.0-12.0); NEUTROPHILS # (AUTO) 8.7 K/uL (1.8-8.9); NEUTROPHILS % (AUTO) 81.9 % (43.0-81.0); PLATELET COUNT (AUTO) 218 K/uL (150-450); RED BLOOD CELL COUNT(AUTO) 2.35 MIL/uL (4.0-5.2); WHITE BLOOD COUNT (AUTO) 10.7 K/uL (4.3-11.0)
--- NOTE | 2021-11-26 06:45 | NUR ---
PRODUCTION SUPERVISOR TRAINEE CLOSING NOTE: TELEMETRY READING SR WITH FIRST DEGREE BLOCK. PATIENT IN NAD AND VSS AT THIS TIME. PATIENT IS AWAKE AND RESPONSIVE TO VOICE COMMAND. NO CHANGE IN CONDITION. BED IN LOW, LOCKED POSITION. BED ALARM ON. BILATERAL SOFT WRIST RESTRAINTS IN PLACE. PALPABLE DP AND RADIAL PULSES, CAP REFILL < 3 SECONDS. TOLERATING 1LPM O2 AEROSOL MIST TO TRACH WITHOUT S/SX OF DISTRESS. LUNG SOUNDS WITH FINE CRACKLES TO BASES.
[2021-11-26 06:56] VITALS: BP 164/76
--- NOTE | 2021-11-26 07:20 | NUR ---
RN OPENING NOTE RECEIVED PATIENT IN BED. A/O X1. OPENS EYES. ON TRACH COOL AEROSOL AT 1 LPM. NO SOB NOTED. IN NO APPARENT DISTRESS. SR 80s ON THE MONITOR. IV ACCESS ON L WRIST #24 G, INTACT AND PATENT. R FEMORAL HD CATH C/D/I. NEPRO RUNNING AT 45 ML/HR. SAFETY MEASURES MAINTAINED. BED IN LOWEST POSITION, BRAKES LOCKED. SIDE RAILS UP X2. CALL LIGHT WITHIN REACH. WILL CONTINUE PLAN OF CARE.
[2021-11-26 07:55] LABS: CALCIUM, SERUM 8.6 mg/dL (8.5-10.1); CARBON DIOXIDE 28 mmol/L (21-32); CHLORIDE 97 mmol/L (98-107); GLUCOSE 175 mg/dL (74-106); SODIUM SERUM 136 mmol/L (136-145); UREA NITROGEN, BLOOD 42 mg/dL (7-18)
[2021-11-26 08:00] VITALS: BP 149/60
--- NOTE | 2021-11-26 08:21 | NUR ---
RN NOTE HGB OF 7.4, PER DR LUCIANA Rowland, PATIENT IS OKAY TO TAKE XARELTO.
[2021-11-26] MEDS: PROSOURCE / PROSTAT (PYXIS) 30 ML UDC GT SCH ×2 (08:23→16:10)
[2021-11-26] MEDS: METOPROLOL TARTRATE 25 MG TABLET PO SCH ×2 (08:23→21:03)
[2021-11-26] MEDS: D5W IV SCH (08:25)
[2021-11-26] MEDS: CEFTAROLINE FOSAMIL ACETATE IV SCH (08:25)
--- NOTE | 2021-11-26 11:17 | NUR ---
RN NOTE PATIENT'S POTASSIUM TODAY IS AT 3.0, DR GALLO (BUSINESS ANALYTICS SPECIALIST) WAS MADE AWARE, PER THE DR, NO REPLETION.
[2021-11-26 12:03] VITALS: BP 164/68
[2021-11-26 16:00] VITALS: BP 175/74
[2021-11-26] MEDS: RIVAROXABAN 10 MG TABLET PO SCH (16:10)
--- NOTE | 2021-11-26 18:34 | NUR ---
RN CLOSING NOTE PATIENT IN BED. A/O X1. OPENS EYES. ON TRACH COOL AEROSOL AT 1 LPM. NO SOB NOTED. NO S/S OF RESPIRATORY DISTRESS. SR ON THE MONITOR. IV ACCESS ON L WRIST #24 G, INTACT AND PATENT. R FEMORAL HD CATH C/D/I. NEPRO RUNNING AT 45 ML/HR, TOLERATING FEEDING WELL. DUE MEDS GIVEN ORDERED. SAFETY MEASURES MAINTAINED. BED IN LOWEST POSITION, BRAKES LOCKED. SIDE RAILS UP X2. KEPT CALL LIGHT WITHIN REACH. WILL ENDORSE CONTINUITY OF CARE TO ONCOMING SHIFT.
--- NOTE | 2021-11-26 19:45 | NUR ---
CORE ANALYST OPENING NOTE: RECEIVED REPORT AT PATIENT'S BEDSIDE. NO CHANGE IN PATIENT'S DISPOSITION FROM PREVIOUS CLOSING ASSESSMENT. PATIENT IS ALERT AND RESPONSIVE TO SOME SIMPLE VOICE COMMANDS, NAD AND VSS AT THIS TIME. BED IN LOW, LOCKED POSITION, SIDE RAILS UP X2, BED ALARM ENGAGED. PUMPS AND BEDSIDE MONITOR CRITICAL ALARMS ENGAGED.
[2021-11-26 20:00] VITALS: BP 158/76
[2021-11-26] MEDS: INSULIN GLARGINE, 100 UNIT/ML CARTRIDGE SQ SCH (21:18)
[2021-11-26] MEDS: CLONIDINE HCL 0.1 MG TABLET PO PRN (23:18)
[2021-11-27] VITALS: BP 175/76
[2021-11-27 04:00] VITALS: BP 179/77
[2021-11-27] MEDS: LEVOTHYROXINE SODIUM 88 MCG TABLET PO SCH (04:55)
[2021-11-27] MEDS: BLOOD SUGAR DIAGNOSTIC 1 EACH STRIP IN SCH ×4 (04:55→23:21)
[2021-11-27] MEDS: NEPRO 1,000 ML BOTTLE GT SCH (04:55)
[2021-11-27] MEDS: INSULIN REGULAR, HUMAN 100 UNIT/ML 3 ML VIAL SQ PRN ×4 (05:57→23:25)
--- NOTE | 2021-11-27 06:19 | NUR ---
ELECTRONIC COURT RECORDER NOTES: BP 179/77. ADMINISTERED CLONIDINE 0.1 MG VIA G-TUBE
--- NOTE | 2021-11-27 06:30 | NUR ---
SECURITY SYSTEMS SALES REPRESENTATIVE CLOSING NOTES: TELEMETRY READING SR. PATIENT IN NAD, HYPERTENSIVE ON AND OFF THROUGHOUT THE NIGHT AND ADMINISTERED CLONIDINE 0.1 MG VIA NGT X2. PATIENT SLEEPING INTERMITTENTLY THROUGHOUT THE NIGHT. EASILY AROUSED TO TOOUCH. OPENS EYES. ON TRACH COOL AEROSOL AT 1 LPM. NO SOB NOTED. SUCTIONED X2 VIA CLOSED SYSTEM D/T COARSE RHONCHI SOUNDS. REMOVED SMALL AMOUNT OF YELLOW-TINGED SECRETIONS. SpO2 >96% THROUGHOUT THE SHIFT. NO S/SX OF RESPIRATORY DISTRESS. IV ACCESS SL TO L WRIST #24, FLUSHED AND PATENT. NO ERYTHEMA TO OR SURROUNDING INSERTION SITE. DRESSING C/D/I. R FEMORAL HD CATH DRESSING C/D/I. NEPRO RUNNING AT 45 ML/HR, TOLERATING FEEDING WELL. NO RESIDUAL NOTED. TRIAL RELEASE OF BILATERAL SOFT WRIST RESTRAINTS PER PROTOCOL. SAFETY MEASURES MAINTAINED. BED IN LOWEST POSITION, BRAKES LOCKED. SIDE RAILS UP X2. CALL LIGHT WITHIN REACH.
--- NOTE | 2021-11-27 07:30 | NUR ---
REFERENCE SERVICES HEAD OPENING NOTE: RECEIVED PATIENT WITH OPEN EYES IN BED. NO SOB NOTED. NO RESPIRATORY DISTRESS NOTED.. PATIENT IS ALERT AND RESPONSIVE TO SOME SIMPLE VOICE COMMANDS, ON G-TUBE FEEDING OF NEPRO @ 45 ML/HR . ASPIRATION PRECAUTION IN PLACE . ON COOL AEROSOL . KEPT HEAD OF THE BED ELEVATED ALL THE TIME. BED IN LOW, LOCKED POSITION, SIDE RAILS UP X2, BED ALARM IN PLACE. CALL LIGHT WITHIN REACH. WILL CONTINUE TO MONITOR.
[2021-11-27 08:00] VITALS: BP 124/72
[2021-11-27 08:09] LABS: CALCIUM, SERUM 9.3 mg/dL (8.5-10.1); CARBON DIOXIDE 27 mmol/L (21-32); CHLORIDE 96 mmol/L (98-107); CREATININE 4.3 mg/dL (0.6-1.3); GLUCOSE 203 mg/dL (74-106); SODIUM SERUM 134 mmol/L (136-145); UREA NITROGEN, BLOOD 69 mg/dL (7-18)
[2021-11-27 08:32] LABS: BASOPHILS # (AUTO) 0.1 K/uL (0.0-0.2); BASOPHILS % (AUTO) 0.7 % (0.0-2.0); EOSINOPHILS % (AUTO) 2.6 % (0.0-6.0); HEMATOCRIT 22 % (33-45); HEMOGLOBIN 7.3 g/dL (11.5-14.8); LYMPHOCYTES # (AUTO) 1.2 K/uL (0.8-4.8); LYMPHOCYTES % (AUTO) 12.9 % (20.0-44.0); MEAN CORPUSCULAR HGB CONC 33 g/dl (31.0-36.0); MEAN CORPUSCULAR VOLUME 95 fL (82-100); MONOCYTES # (AUTO) 0.5 K/uL (0.1-1.30); MONOCYTES % (AUTO) 5.6 % (2.0-12.0); NEUTROPHILS # (AUTO) 7.1 K/uL (1.8-8.9); NEUTROPHILS % (AUTO) 78.2 % (43.0-81.0); PLATELET COUNT (AUTO) 245 K/uL (150-450); RED BLOOD CELL COUNT(AUTO) 2.33 MIL/uL (4.0-5.2); WHITE BLOOD COUNT (AUTO) 9.1 K/uL (4.3-11.0)
[2021-11-27] MEDS: PROSOURCE / PROSTAT (PYXIS) 30 ML UDC GT SCH ×2 (09:07→16:51)
[2021-11-27] MEDS: METOPROLOL TARTRATE 25 MG TABLET PO SCH ×2 (09:07→21:00)
[2021-11-27] MEDS: DAPTOMYCIN 500 MG in IV NS 0.9% 50 ML IV SCH (09:21)
--- NOTE | 2021-11-27 11:10 | NUR ---
RN NOTES REPORT THE LAB RESULTS TO DR. AGUIRRE, AT 1107 NO CALL BACK. CHARGE NURSE CHRISTOPH AWARE OF THE LAB RESULTS.
[2021-11-27 12:00] VITALS: BP 145/67
[2021-11-27 16:00] VITALS: BP 155/71
[2021-11-27] MEDS: RIVAROXABAN 10 MG TABLET PO SCH (16:50)
--- NOTE | 2021-11-27 19:00 | NUR ---
DEPUTY CHIEF SHERIFF OPENING NOTES: RECEIVED REPORT AT PATIENT'S BEDSIDE. NO CHANGE FROM PREVIOUS SHIFT ASSESSMENT. PATIENT IN NAD AND VSS. PATIENT RECEIVING HD TREATMENT AT THIS TIME. BED IN LOW, LOCKED POSITION. SIDE RAILS UP X2. CALL LIGHT WITHIN REACH.
--- NOTE | 2021-11-27 19:30 | NUR ---
DBA CLOSING NOTE: PATIENT WITH OPEN EYES IN BED. NO SOB NOTED. NO RESPIRATORY DISTRESS NOTED.. PATIENT IS ALERT AND RESPONSIVE TO SOME SIMPLE VOICE COMMANDS, ON G-TUBE FEEDING OF NEPRO @ 45 ML/HR . ASPIRATION PRECAUTION IN PLACE . ON COOL AEROSOL . KEPT HEAD OF THE BED ELEVATED ALL THE TIME. ALL DUE MEDS GIVEN ORDERED. BED IN LOW, LOCKED POSITION, SIDE RAILS UP X2, BED ALARM IN PLACE. CALL LIGHT WITHIN REACH. WILL ENDORSE INCOMING SHIFT FOR SALVATORE..
[2021-11-27 20:00] VITALS: BP 119/63
[2021-11-27] MEDS: INSULIN GLARGINE, 100 UNIT/ML CARTRIDGE SQ SCH (22:53)
[2021-11-28] VITALS (7 sets, daily range): BP systolic 132–157; BP diastolic 57–81
[2021-11-28] MEDS: METOPROLOL TARTRATE INJ 5 MG/5 ML AMPUL IVP PRN (01:26)
--- NOTE | 2021-11-28 01:53 | NUR ---
BIOLOGY FACULTY MEMBER NOTE: BP RECHECKED S/P LOPRESSOR 5MG IVP ADMINISTERED. BP 135/62, HR 84
[2021-11-28] MEDS: BLOOD SUGAR DIAGNOSTIC 1 EACH STRIP IN SCH ×3 (05:19→18:22)
--- NOTE | 2021-11-28 06:00 | NUR ---
MOLD SHIFTER CLOSING NOTE: PATIENT LYING IN BED, A&O X1, OPENS EYES TO LIGHT TOUCH. PATIENT SLEPT INTERMITTENTLY THROUGHOUT THE SHIFT. NAD AND VSS AT THIS TIME. PATIENT IS S/P HD TX 11/27/211999 1.5 L TAKEN OFF. TELEMETRY READING SR 88. SIDE RAILS UP X3. HOB ELEVATED TO SEMI-FOWLERS POSITION. COOL AEROSOL O2 TO TRACH @ 1LPM. BILATERAL FINE CRACKLES TO LUNG BASES. GENERALIZED EDEMA TO BUA 1+. NO EDEMA TO BLE. BED IN LOW, LOCKED POSITION. BED ALARM ON. BILATERAL SOFT WRIST RESTRAINTS IN PLACE, TRIAL RELEASE PER FACILITY PROTOCOL THROUGHOUT THE SHIFT. CALL LIGHT WITHIN REACH.
[2021-11-28 06:29] LABS: BASOPHILS # (AUTO) 0.1 K/uL (0.0-0.2); BASOPHILS % (AUTO) 0.8 % (0.0-2.0); EOSINOPHILS % (AUTO) 2.8 % (0.0-6.0); HEMATOCRIT 27 % (33-45); HEMOGLOBIN 8.6 g/dL (11.5-14.8); LYMPHOCYTES # (AUTO) 1.4 K/uL (0.8-4.8); LYMPHOCYTES % (AUTO) 17.5 % (20.0-44.0); MEAN CORPUSCULAR HGB CONC 32 g/dl (31.0-36.0); MEAN CORPUSCULAR VOLUME 98 fL (82-100); MONOCYTES # (AUTO) 0.6 K/uL (0.1-1.30); MONOCYTES % (AUTO) 7.3 % (2.0-12.0); NEUTROPHILS # (AUTO) 5.9 K/uL (1.8-8.9); NEUTROPHILS % (AUTO) 71.6 % (43.0-81.0); PLATELET COUNT (AUTO) 283 K/uL (150-450); RED BLOOD CELL COUNT(AUTO) 2.74 MIL/uL (4.0-5.2); WHITE BLOOD COUNT (AUTO) 8.2 K/uL (4.3-11.0)
[2021-11-28] MEDS: LEVOTHYROXINE SODIUM 88 MCG TABLET PO SCH (06:45)
[2021-11-28 07:02] LABS: CARBON DIOXIDE 26 mmol/L (21-32); CHLORIDE 95 mmol/L (98-107); CREATININE 3.3 mg/dL (0.6-1.3); GLUCOSE 185 mg/dL (74-106); POTASSIUM 3.4 mmol/L (3.5-5.1); SODIUM SERUM 134 mmol/L (136-145); UREA NITROGEN, BLOOD 49 mg/dL (7-18)
[2021-11-28] MEDS: INSULIN REGULAR, HUMAN 100 UNIT/ML 3 ML VIAL SQ PRN ×3 (07:05→18:24)
--- NOTE | 2021-11-28 07:30 | NUR ---
COURSEWARE DEVELOPER OPENING NOTE: RECEIVED PATIENT IN BED ALERT.OPENS EYES UPON CALLING HER NAME OR TACTILE STIMULI. NO SOB NOTED. NO RESPIRATORY DISTRESS NOTED. PATIENT IS ON COOL AEROSOL-TRACH 1LPM. ON TELE MONITORING.ON G-TUBE FEEDING OF NEPRO @ 45 ML/HR . ASPIRATION PRECAUTION IN PLACE . KEPT HEAD OF THE BED ELEVATED ALL THE TIME. REPOSITION THE PATIENT FOR COMFORT AND SKIN MANAGEMENT. IV ACCESS ON THE LEFT WRIST #24 INTACT. RIGHT FEMORAL HD INTACT.BED IN LOW, LOCKED POSITION, SIDE RAILS UP X2, BED ALARM IN PLACE. CALL LIGHT WITHIN REACH. WILL CONTINUE TO MONITOR.
[2021-11-28] MEDS: PROSOURCE / PROSTAT (PYXIS) 30 ML UDC GT SCH ×2 (08:17→17:04)
[2021-11-28] MEDS: METOPROLOL TARTRATE 25 MG TABLET PO SCH ×2 (08:18→20:27)
--- NOTE | 2021-11-28 09:12 | NUR ---
WOUND CARE CONSULT: PT PRESENTS WITH RASHES TO RT BREASTFOLD,CHEST, UPPER BACK, BUTTOCKS AND LEFT ABDOMINAL/GROIN FOLD. RECOMMENDATIONS MADE FOR SKIN PROTECTION. DISCUSSED WITH NURSING STAFF. PT IS ON ZENON ISOFLEX LOW AIRLOSS BED. PT IS INCONTINENT. IN AGREEMENT WITH PLAN OF CARE. Addendum: 11/28/21 at 0914 by NATHALY FELIZ WNDNU Amended: Links added.
[2021-11-28] MEDS: CLOTRIMAZOLE/BETAMETASONE DIPROPIONATE 15 GM TUBE TP SCH ×2 (10:34→17:04)
[2021-11-28] MEDS: RIVAROXABAN 10 MG TABLET PO SCH (17:00)
--- NOTE | 2021-11-28 17:05 | NUR ---
RN NOTES HELD MACY AT 1700 PM FOR HAVING PERMACATH INSERTION BY DR. MENA AT 0800 AM. TOMORROW.
--- NOTE | 2021-11-28 18:46 | NUR ---
RECORDS ANALYSIS MANAGER CLOSING NOTE: PATIENT IN BED ALERT.OPENS EYES UPON CALLING HER NAME OR TACTILE STIMULI. NO SOB NOTED. NO RESPIRATORY DISTRESS NOTED. PATIENT IS ON COOL AEROSOL-TRACH 1LPM. ON TELE MONITORING READING OF SR104.ON G-TUBE FEEDING OF NEPRO @ 45 ML/HR . ASPIRATION PRECAUTION IN PLACE . KEPT HEAD OF THE BED ELEVATED ALL THE TIME. REPOSITION THE PATIENT FOR COMFORT AND SKIN MANAGEMENT. ALL DUE MEDS AND TREATMENTS GIVEN. SON VISITED THE PATIENT AND SIGNED THE CONSENT FORMS FOR PERMACATH INSERTION.IV ACCESS ON THE LEFT WRIST #24 INTACT. RIGHT FEMORAL HD INTACT.BED IN LOW, LOCKED POSITION, SIDE RAILS UP X2, BED ALARM IN PLACE. CALL LIGHT WITHIN REACH. WILL ENDORSE INCOMING SHIFT FOR SALVATORE.
--- NOTE | 2021-11-28 19:30 | NUR ---
LIGHTING EQUIPMENT OPERATOR OPENING NOTE PATIENT AWAKE IN BED, OPENS EYES TO NAME OR TACTILE STIMULI. PT HAS TRACH ON COOL AEROSOL, 1 LPM OF OXYGEN, NO S/S OF RESPIRATORY DISTRESS, BREATHING EVEN AND UNLABORED, SPO2: 100%. PT ON EXTERNAL DEPORTATION OFFICER READING SINUS TACHY, HR: 105. IV ACCESS ON LEFT WRIST #24G INTACT AND SALINE LOCKED. RIGHT FEMORAL HD CATH NOTED, INTACT. PATIENT ON BILATERAL SOFT WRIST RESTRAINTS, RELEASED FOR A FEW MINUTES AND CHECKED CIRCULATION. GT FEEDING RUNNING NEPRO @ 45 ML/HR, PT TO BE NPO @ MIDNIGHT FOR PERMACATH INSERTION SCHEDULED FOR 8 AM. SAFETY MEASURES IN PLACE: CALL LIGHT WITHIN REACH, SIDE RAILS UP X 3, BED LOCKED IN LOW POSITION, HOB ELEVATED, BED ALARM ON. WILL CONTINUE TO MONITOR PATIENT
[2021-11-28] MEDS ORDERED: ANESTHESIA TRAY IN PYXIS 1 EA TRAY MC ONE (19:35)
[2021-11-28] MEDS: INSULIN GLARGINE, 100 UNIT/ML CARTRIDGE SQ SCH (22:00)
[2021-11-29] VITALS (8 sets, daily range): BP systolic 107–188; BP diastolic 55–84
[2021-11-29] MEDS: BLOOD SUGAR DIAGNOSTIC 1 EACH STRIP IN SCH ×4 (00:28→18:07)
[2021-11-29] MEDS: INSULIN REGULAR, HUMAN 100 UNIT/ML 3 ML VIAL SQ PRN ×2 (00:29→17:44)
[2021-11-29] MEDS: CLONIDINE HCL 0.1 MG TABLET PO PRN (00:43)
[2021-11-29 04:00] LABS: BASOPHILS # (AUTO) 0.1 K/uL (0.0-0.2); BASOPHILS % (AUTO) 0.8 % (0.0-2.0); EOSINOPHILS % (AUTO) 3.1 % (0.0-6.0); HEMATOCRIT 25 % (33-45); LYMPHOCYTES # (AUTO) 1.6 K/uL (0.8-4.8); LYMPHOCYTES % (AUTO) 19.8 % (20.0-44.0); MEAN CORPUSCULAR HGB CONC 33 g/dl (31.0-36.0); MEAN CORPUSCULAR VOLUME 94 fL (82-100); MONOCYTES # (AUTO) 0.6 K/uL (0.1-1.30); MONOCYTES % (AUTO) 7.3 % (2.0-12.0); NEUTROPHILS # (AUTO) 5.6 K/uL (1.8-8.9); PLATELET COUNT (AUTO) 360 K/uL (150-450); RED BLOOD CELL COUNT(AUTO) 2.61 MIL/uL (4.0-5.2); WHITE BLOOD COUNT (AUTO) 8.1 K/uL (4.3-11.0)
[2021-11-29] MEDS: METOPROLOL TARTRATE INJ 5 MG/5 ML AMPUL IVP PRN (04:01)
[2021-11-29 04:31] LABS: CARBON DIOXIDE 29 mmol/L (21-32); CHLORIDE 94 mmol/L (98-107); CREATININE 4.4 mg/dL (0.6-1.3); GLUCOSE 177 mg/dL (74-106); POTASSIUM 4.4 mmol/L (3.5-5.1); SODIUM SERUM 134 mmol/L (136-145); UREA NITROGEN, BLOOD 77 mg/dL (7-18)
--- NOTE | 2021-11-29 07:21 | NUR ---
AUTO FORMER MACHINE OPERATOR CLOSING NOTE PATIENT SLEEPING IN BED, NON-VERBAL BUT OPENS EYES TO STIMULI. PT ON COOL AEROSOL WITH 1 LPM O2, NO S/S OF DISTRESS OR SOB, BREATHING EVEN AND UNLABORED. IV ACCESS ON LEFT FOREARM #20G INTACT AND FLUSHING WELL, SALINE LOCKED. PT ON EXTERNAL FLAT GRINDER OPERATOR READING SINUS RHYTHM, HR: 82. PATIENT ON BILATERAL SOFT WRIST RESTRAINTS. MEDICATIONS GIVEN ORDERED, PT NEEDS MET THROUGHOUT SHIFT. PATIENT TURNED AND RESTRAINTS RELEASED Q2H. PATIENT NPO SINCE MIDNIGHT FOR PERMACATH PLACEMENT, CONSENT SIGNED AND SURGICAL CHECKLIST COMPLETED. SAFETY MEASURES IN PLACE: CALL LIGHT WITHIN REACH, SIDE RAILS UP X 2, BED LOCKED IN LOW POSITION, BED ALARM ON. ENDORSED TO DAY SHIFT NURSE FOR CONTINUITY OF CARE
[2021-11-29] MEDS ORDERED: IOHEXOL 240MG/ML 50 ML IV ONE (07:28)
[2021-11-29] MEDS ORDERED: LIDOCAINE 1% INJ 50 ML MDV IJ ONE (07:29)
[2021-11-29] MEDS ORDERED: HEPARIN SODIUM, PORCINE 1,000 UNIT/ML VIAL ONE (07:29)
--- NOTE | 2021-11-29 07:30 | NUR ---
JUSTICE PROFESSOR OPENING NOTE RECEIVED PATIENT AWAKE IN BED, OPENS EYES TO NAME OR TACTILE STIMULI. PT HAS TRACH ON COOL AEROSOL, 1 LPM OF OXYGEN, NO S/S OF RESPIRATORY DISTRESS, BREATHING EVENLY AND UNLABORED, SPO2 100%. PT ON EXTERNAL EMAIL MARKETING MANAGER READING SINUS RHYTHM AT 84BPM. WITH IV ACCESS ON LEFT FOREARM G20 INTACT AND SALINE LOCKED. ON NPO SINCE MIDNIGHT FOR PERMACATH INSERTION. SAFETY MEASURES IN PLACE: CALL LIGHT WITHIN REACH, SIDE RAILS UP X 3, BED LOCKED IN LOW POSITION, HOB ELEVATED, BED ALARM ON. WILL CONTINUE TO MONITOR PATIENT
--- NOTE | 2021-11-29 07:35 | NUR ---
RN NOTES PATIENT WAS PICKED UP BY SURGERY PERSONNEL FOR PERMACATH PLACEMENT.
[2021-11-29] MEDS ORDERED: MIDAZOLAM HCL 2 MG/2ML VIAL ONE (07:39)
[2021-11-29] MEDS: PROSOURCE / PROSTAT (PYXIS) 30 ML UDC GT SCH ×2 (10:45→16:58)
[2021-11-29] MEDS: DAPTOMYCIN 500 MG in IV NS 0.9% 50 ML IV SCH (10:45)
[2021-11-29] MEDS: METOPROLOL TARTRATE 25 MG TABLET PO SCH ×2 (10:46→20:44)
[2021-11-29] MEDS: CLOTRIMAZOLE/BETAMETASONE DIPROPIONATE 15 GM TUBE TP SCH ×2 (10:47→17:15)
[2021-11-29] MEDS: LEVOTHYROXINE SODIUM 88 MCG TABLET PO SCH (10:48)
[2021-11-29] MEDS: RIVAROXABAN 10 MG TABLET PO SCH (16:59)
--- NOTE | 2021-11-29 18:22 | NUR ---
SUPERVISOR DITCHING CLOSING NOTE PATIENT RESTING ON BED, OPENS EYES TO NAME OR TACTILE STIMULI. PT HAS TRACH ON COOL AEROSOL, 1 LPM OF OXYGEN, NO S/S OF RESPIRATORY DISTRESS, SATURATING 100%. PT ON EXTERNAL VASCULAR SURGEON READING SINUS RHYTHM AT 82BPM. WITH IV ACCESS ON LEFT AND RIGHT ANKLE G20 INTACT AND SALINE LOCKED. WITH NEWLY INSERTED LEFT CHEST WALL PERMACATH FOR HD, PATENT AND INTACT. POST HEMODIALYSIS WITH AN OUTPUT OF 425ML. ON NEPRO FEEDING AT 45ML/HR VIA G-TUBE. SAFETY MEASURES IN PLACE: CALL LIGHT WITHIN REACH, SIDE RAILS UP X 3, BED LOCKED IN LOW POSITION, HOB ELEVATED, BED ALARM ON. WILL ENDORSE TO NEXT SHIFT FOR SALVATORE.
--- NOTE | 2021-11-29 19:30 | NUR ---
LABORER DRYING DEPARTMENT OPENING NOTES PATIENT AWAKE IN BED, OPENS EYES TO VERBAL AND TACTILE STIMULI, PT NON-VERBAL. PATIENT HAS TRACH ON COOL AEROSOL 1 LPM OF OXYGEN, SPO2: 100% HOWEVER PATIENT BREATHING FAST, 34 BREATHS PER MINUTE, PATIENT SUCTIONED. PATIENT ON EXTERNAL CARRY OUT CLERK READING SINUS RHYTHM, HR: 95. PT ON GTUBE FEEDING RUNNING NEPRO @ 45 ML/HR. OLD RIGHT FEMORAL HD SITE DRESSING CLEAN, DRY AND INTACT. LCW PERMACATH DRESSING CLEAN, DRY AND INTACT. IV ACCESS ON LEFT FOREARM #20G INTACT AND FLUSHING WELL, RIGHT AND LEFT ANKLE #20G IV'S BOTH DIFFICULT TO FLUSH. SAFETY MEASURES IN PLACE: CALL LIGHT WITHIN REACH, SIDE RAILS UP X 3, BED LOCKED IN LOW POSITION, HOB ELEVATED, BED ALARM ON. WILL CONTINUE TO MONITOR PATIENT
--- NOTE | 2021-11-29 21:11 | NUR ---
KILN HAND NOTE PATIENT NOTED WITH INCREASED RESPIRATIONS, 32 BREATHS PER MINUTE, SPO2: 100%, BP: 144/55, HR: 94, T: 98.8. PATIENT IS NON-VERBAL SO UNABLE TO TELL ME IF SHE'S IN PAIN, BUT APPEARS RESTLESS. RT CONTACTED AND SUCTIONED PATIENT AND CHANGED INNER CANNULA. PATIENT DOESN'T HAVE ANY PRN PAIN OR ANXIETY MEDICATION, CONTACTED RIVER INFANTE NP REGARDING THIS, PER RIVER CONTINUE TO MONITOR FOR NOW
[2021-11-29] MEDS: INSULIN GLARGINE, 100 UNIT/ML CARTRIDGE SQ SCH (22:15)
[2021-11-30] VITALS: BP 165/77
[2021-11-30] MEDS: BLOOD SUGAR DIAGNOSTIC 1 EACH STRIP IN SCH ×3 (00:28→13:08)
[2021-11-30] MEDS: METOPROLOL TARTRATE INJ 5 MG/5 ML AMPUL IVP PRN (00:29)
--- NOTE | 2021-11-30 00:30 | NUR ---
APARTMENT LEASING MANAGER NOTE PATIENT'S BP 165/77, HR: 86. LOPRESSOR 5 MG IVP GIVEN ORDERED. WILL CONTINUE TO MONITOR PATIENT
[2021-11-30] MEDS: INSULIN REGULAR, HUMAN 100 UNIT/ML 3 ML VIAL SQ PRN ×3 (00:31→13:16)
[2021-11-30 04:00] VITALS: BP 122/80
--- NOTE | 2021-11-30 04:58 | NUR ---
HEELER MACHINE NOTE PATIENT'S LEFT FOREARM IV CATHETER HALF WAY OUT, REMOVED IV INTACT, MINIMAL BLEEDING NOTED, PRESSURE AND GAUZE APPLIED
--- NOTE | 2021-11-30 07:21 | NUR ---
KNIFE SHARPENER OPENING NOTES PATIENT SLEEPING IN BED, PATIENT HAS TRACH PIECE ON COOL AEROSOL 2 LPM OF OXYGEN, SPO2: 97%. PATIENT ON EXTERNAL STEAM BONE PRESS TENDER READING SINUS RHYTHM, HR: 92. PT ON GTUBE FEEDING RUNNING NEPRO @ 45 ML/HR. OLD RIGHT FEMORAL HD SITE DRESSING CLEAN, DRY AND INTACT. LCW PERMACATH DRESSING CLEAN, DRY AND INTACT. IV ACCESS ON RIGHT AND LEFT ANKLE #20G INTACT AND SALINE LOCKED. MEDICATIONS GIVEN ORDERED, PT NEEDS MET THROUGHOUT SHIFT. PATIENT SUCTIONED, TURNED AND RESTRAINTS RELEASED DURING SHIFT. SAFETY MEASURES IN PLACE: CALL LIGHT WITHIN REACH, SIDE RAILS UP X 3, BED LOCKED IN LOW POSITION, HOB ELEVATED, BED ALARM ON. WILL ENDORSE TO DAY SHIFT NURSE FOR CONTINUITY OF CARE
[2021-11-30 08:00] VITALS: BP 151/75
--- NOTE | 2021-11-30 08:12 | NUR ---
RN OPENING NOTES PATIENT AWAKE IN BED RESTING, AWAKE. A/O X1. NO S/S OF PAIN NOTED AT THIS TIME. ON VENT TOLERATING WELL, NO DISTRESS OR SHORTNESS OF BREATH NOTED. IV R AND L ANKLE #20G, INTACT AND PATENT. PATIENT ON EXTERNAL GERIATRIC CASE MANAGER WITH CURRENT READING OF S.R. WITH HR OF 92. FALL AND SAFETY MEASURES IN PLACE, BED ALARM ON, BED IN LOW AND LOCK POSITION, CALL LIGHT AND TABLE WITHIN EASY REACH, SIDE RAILS UP X2. WILL CONTINUE TO MONITOR
[2021-11-30 09:19] LABS: CALCIUM, SERUM 8.3 mg/dL (8.5-10.1); CARBON DIOXIDE 26 mmol/L (21-32); CHLORIDE 93 mmol/L (98-107); CREATININE 3.4 mg/dL (0.6-1.3); GLUCOSE 194 mg/dL (74-106); POTASSIUM 3.2 mmol/L (3.5-5.1); SODIUM SERUM 130 mmol/L (136-145); UREA NITROGEN, BLOOD 58 mg/dL (7-18)
[2021-11-30] MEDS: PROSOURCE / PROSTAT (PYXIS) 30 ML UDC GT SCH (09:35)
[2021-11-30] MEDS: METOPROLOL TARTRATE 25 MG TABLET PO SCH (09:36)
[2021-11-30] MEDS: LEVOTHYROXINE SODIUM 88 MCG TABLET PO SCH (09:36)
[2021-11-30] MEDS: CLOTRIMAZOLE/BETAMETASONE DIPROPIONATE 15 GM TUBE TP SCH (09:37)
[2021-11-30 09:43] LABS: BASOPHILS % (AUTO) 0.5 % (0.0-2.0); EOSINOPHILS % (AUTO) 3.8 % (0.0-6.0); HEMATOCRIT 22 % (33-45); HEMOGLOBIN 7.4 g/dL (11.5-14.8); LYMPHOCYTES # (AUTO) 1.4 K/uL (0.8-4.8); LYMPHOCYTES % (AUTO) 18.2 % (20.0-44.0); MEAN CORPUSCULAR HGB CONC 33 g/dl (31.0-36.0); MEAN CORPUSCULAR VOLUME 93 fL (82-100); MONOCYTES # (AUTO) 0.7 K/uL (0.1-1.30); MONOCYTES % (AUTO) 8.8 % (2.0-12.0); NEUTROPHILS # (AUTO) 5.2 K/uL (1.8-8.9); NEUTROPHILS % (AUTO) 68.7 % (43.0-81.0); PLATELET COUNT (AUTO) 400 K/uL (150-450); WHITE BLOOD COUNT (AUTO) 7.6 K/uL (4.3-11.0)
[2021-11-30] MEDS ORDERED: METO25TA20 PO (12:23)
[2021-11-30] MEDS ORDERED: EPOE1000 SQ (12:23)
[2021-11-30] MEDS ORDERED: DAPT500V2 IV (12:23)
[2021-11-30] MEDS ORDERED: Insulin Glargine,Hum SQ (12:23)
[2021-11-30] MEDS ORDERED: Nepro GT (12:23)
[2021-11-30] MEDS: NEPRO 1,000 ML BOTTLE GT SCH (15:43)
[2021-11-30 16:00] VITALS: BP 178/87
--- NOTE | 2021-11-30 20:01 | NUR ---
DISCHARGE NOTE PATIENT WAS DISCHARGE IN MEDICAL STABLE CONDITIONS. A/O X1. V/S TAKEN, STABLE AND RECORDED. TWO IV ON ANKLES REMOVED. SKIN ASSESSMENT DONE AND PICTURES TAKEN. ALL BELONGING CHECKED AND SIGNED. NAME ARM BAND REMOVED. HEALTH TEACHING AND DISCHARGE INSTRUCTIONS GIVEN TO PARAMEDICS AND TO NURSE AT [facility] DURING REPORT. PATENT LEFT UNIT VIA GURNEY WITH NO SIGNS OF DISTRESS, ACCOMPANIED BY PARAMEDICS. CHARGE NURSE AWARE OF DISCHARGED.
== END 2021-11-30 17:41 | DRG 314 ==
LOC: ER 15:14 → ICU 21:33 → TELE-TD 11-09 13:17 → TELE1 11-10 16:57 → TELE 11-14 02:57 → ICU 11-15 06:14 → TELE 11-15 11:42
PROVIDERS: ADMIT Internal Medicine; ATTEND Internal Medicine
PROC: 5A1955Z Respiratory Ventilation, Greater than 96 Consecutive Hours (ICD-10-PCS; principal; 2021-11-06)
PROC: 02HV33Z Insertion of Infusion Device into Superior Vena Cava, Percutaneous Approach (ICD-10-PCS; 2021-11-06)
PROC: B548ZZA Ultrasonography of Superior Vena Cava, Guidance (ICD-10-PCS; 2021-11-06)
PROC: 5A1D70Z Performance of Urinary Filtration, Intermittent, Less than 6 Hours Per Day (ICD-10-PCS; 2021-11-07)
PROC: 0JPV3XZ Removal of Tunneled Vascular Access Device from Upper Extremity Subcutaneous Tissue and Fascia, Percutaneous Approach (ICD-10-PCS; 2021-11-09)
PROC: 05PY33Z Removal of Infusion Device from Upper Vein, Percutaneous Approach (ICD-10-PCS; 2021-11-09)
PROC: 06HY33Z Insertion of Infusion Device into Lower Vein, Percutaneous Approach (ICD-10-PCS; 2021-11-12)
PROC: B246ZZ4 Ultrasonography of Right and Left Heart, Transesophageal (ICD-10-PCS; 2021-11-15)
PROC: 06HY33Z Insertion of Infusion Device into Lower Vein, Percutaneous Approach (ICD-10-PCS; 2021-11-19)
PROC: 0DH63UZ Insertion of Feeding Device into Stomach, Percutaneous Approach (ICD-10-PCS; 2021-11-22)
PROC: 0JHF3XZ Insertion of Tunneled Vascular Access Device into Left Upper Arm Subcutaneous Tissue and Fascia, Percutaneous Approach (ICD-10-PCS; 2021-11-29)
PROC: 05HN33Z Insertion of Infusion Device into Left Internal Jugular Vein, Percutaneous Approach (ICD-10-PCS; 2021-11-29)
PROC: B544ZZA Ultrasonography of Left Jugular Veins, Guidance (ICD-10-PCS; 2021-11-29)
PROC: B518YZZ Fluoroscopy of Superior Vena Cava using Other Contrast (ICD-10-PCS; 2021-11-29)
DX: T80.211A Bloodstream infection due to central venous catheter, initial encounter (principal); A41.89 Other specified sepsis; R65.21 Severe sepsis with septic shock; N18.6 End stage renal disease; J96.21 Acute and chronic respiratory failure with hypoxia; G92.8 Other toxic encephalopathy; E43 Unspecified severe protein-calorie malnutrition; J15.9 Unspecified bacterial pneumonia; Z99.11 Dependence on respirator [ventilator] status; G93.40 Encephalopathy, unspecified; I12.0 Hypertensive chronic kidney disease with stage 5 chronic kidney disease or end stage renal disease; J90 Pleural effusion, not elsewhere classified; J98.11 Atelectasis; J95.851 Ventilator associated pneumonia; D69.6 Thrombocytopenia, unspecified; D64.9 Anemia, unspecified; Z99.2 Dependence on renal dialysis; Z86.73 Personal history of transient ischemic attack (TIA), and cerebral infarction without residual deficits; E03.9 Hypothyroidism, unspecified; Y84.8 Other medical procedures as the cause of abnormal reaction of the patient, or of later complication, without mention of misadventure at the time of the procedure; I70.0 Atherosclerosis of aorta; I67.2 Cerebral atherosclerosis; K29.70 Gastritis, unspecified, without bleeding; Z86.14 Personal history of Methicillin resistant Staphylococcus aureus infection; E11.22 Type 2 diabetes mellitus with diabetic chronic kidney disease; E78.5 Hyperlipidemia, unspecified; D63.8 Anemia in other chronic diseases classified elsewhere; B95.62 Methicillin resistant Staphylococcus aureus infection as the cause of diseases classified elsewhere; I35.8 Other nonrheumatic aortic valve disorders; M48.061 Spinal stenosis, lumbar region without neurogenic claudication; M25.78 Osteophyte, vertebrae; R13.10 Dysphagia, unspecified; Z93.0 Tracheostomy status; Y95 Nosocomial condition
CPT/HCPCS: 31720; 36415; 36600; 43246; 70450-TC; 71045-TC; 72126-TC; 72129-TC; 72132-TC; 80048-TC; 80076-TC; 80202-TC; 82550-TC; 82803-TC; 82962-TC; 83540-TC; 83605-TC; 83735-TC; 84100-TC; 84484-TC; 85025-TC; 85610-TC; 85730-TC; 86706; 87040-TC; 87081-TC; 87340; 87806; 90935-TC; 93307-TC; 93312-TC; 94002-TC; 94003-TC; 94640-TC; 94760-TC; 94762-TC; 94799-TC; 99082-TC; A4216; A4623; A6403; A7526; C1750; C1757; C1769; C1894; G0378; J0690; J0692; J0878; J0885; J1644; J1720; J1815; J2060; J2250; J2370; J2543; J2704; J3370; J3490; J7030; J7050; J7060; P9047; Q9966; Q9967; U0003

== ENCOUNTER 2021-12-06 15:48 | Inpatient (IN) | payer MEDICARE, OTHER ==
[~2021-12-06] VITALS: Ht 165.1 cm; Wt 68.5 kg
[~2021-12-06 15:48] MED LIST: ALBU2.5V38 IH; AMIN30LI2 PO; ASCO-352 PO; ASPI-1420 PO; CARV6.252 PO; CHLO473M5 MM; CLON0.1T PO; DAPT500V2 IV; DOCU-141 PO; EPOE1000 SQ; EPOE1VIA6 SQ; ESCI10TA PO; FOLI0.8T2 PO; GLIP5TAB13 PO; Insulin Glargine,Hum SQ; LEVO88TA5 PO; LOSA50TA39 PO; METO25TA20 PO; NIFE-35 PO; Nepro GT; OLAN2.5T3 PO; PANT40TA2 PO; POLY17PO4 PO; RIVA10TA PO; SEVE800T8 PO; ZINC56.713 TP
--- NOTE | 2021-12-06 16:30 | NUR ---
[facility] FROM [facility],SHORT OF BREATH WHILE ON TREATMENT,1 HR REMAINING. PT A/OX1; NONVERBAL. T-PIECE @ 6LPM; SATTING AT 100%. LCW HD PERMACATH INTACT. LLQ GTUBE INTACT. CONNECTED PT TO MONITOR AND POX. SAFETY MEASURES IN PLACE.
--- NOTE | 2021-12-06 17:20 | NUR ---
WEED SPRAYER AT PT'S BEDSIDE
--- NOTE | 2021-12-06 17:31 | NUR ---
CHEMICAL OPERATIONS SPECIALIST AT PT'S BEDSIDE
[2021-12-06 18:07] LABS: BASOPHILS # (AUTO) 0.1 K/uL (0.0-0.2); BASOPHILS % (AUTO) 0.6 % (0.0-2.0); EOSINOPHILS % (AUTO) 1.1 % (0.0-6.0); HEMATOCRIT 22 % (33-45); HEMOGLOBIN 7.1 g/dL (11.5-14.8); LYMPHOCYTES # (AUTO) 2.5 K/uL (0.8-4.8); LYMPHOCYTES % (AUTO) 14.5 % (20.0-44.0); MEAN CORPUSCULAR HGB CONC 32 g/dl (31.0-36.0); MEAN CORPUSCULAR VOLUME 97 fL (82-100); MONOCYTES # (AUTO) 1.2 K/uL (0.1-1.30); NEUTROPHILS # (AUTO) 13.1 K/uL (1.8-8.9); NEUTROPHILS % (AUTO) 76.8 % (43.0-81.0); PLATELET COUNT (AUTO) 644 K/uL (150-450); RED BLOOD CELL COUNT(AUTO) 2.27 MIL/uL (4.0-5.2)
--- NOTE | 2021-12-06 18:51 | NUR ---
LAB STILL NOT RESULTED; F/U WITH OLENA GARCIA. STILL PENDING
--- NOTE | 2021-12-06 18:52 | NUR ---
JASE MIDLINE #18G NOTED; PATENT AND INTACT
[2021-12-06 18:53] LABS: ALANINE AMINOTRANSFERASE 9 U/L (12-78); ALBUMIN 2.2 g/dL (3.4-5.0); ALKALINE PHOSPHATASE 146 U/L (46-116); ASPARTATE AMINOTRANSFERASE 23 U/L (15-37); BILIRUBIN,DIRECT 0.1 mg/dL (0.0-0.2); BILIRUBIN,TOTAL 0.2 mg/dL (0.2-1.0); CALCIUM, SERUM 9.2 mg/dL (8.5-10.1); CARBON DIOXIDE 27 mmol/L (21-32); CHLORIDE 103 mmol/L (98-107); CREATININE 2.8 mg/dL (0.6-1.3); GLUCOSE 204 mg/dL (74-106); SODIUM SERUM 140 mmol/L (136-145); UREA NITROGEN, BLOOD 27 mg/dL (7-18)
--- NOTE | 2021-12-06 19:19 | NUR ---
CALLED PHARMACY TO VERIFY IV ATB WITH ALLERGIES
[2021-12-06] MEDS ORDERED: VANCOMYCIN 1 GM in IV D5W 250 ML IV ONE (19:30)
[2021-12-06] MEDS ORDERED: CEFEPIME 1 GM in IV D5W 50 ML IV ONE (19:30)
--- NOTE | 2021-12-06 20:12 | NUR ---
[facility] PAGED
--- NOTE | 2021-12-06 20:12 | NUR ---
MOVED PACKET SUBMITTED
--- NOTE | 2021-12-06 20:45 | NUR ---
BED REQUESTED FROM NURSING SUP
--- NOTE | 2021-12-06 21:32 | NUR ---
NIRMAL TAY (SON) GAVE VERBAL CONSENT FOR PT TO HAVE HD AND WITNESSED WITH 2 RN'S
--- NOTE | 2021-12-06 21:32 | NUR ---
UPDATED NIRMAL (SON) [phone]
--- NOTE | 2021-12-06 21:49 | NUR ---
COVID ANTIGEN AND PCR SWAB COLLECTED AND SENT TO LAB
[2021-12-06] MEDS ORDERED: ALBUTEROL FS 2.5 MG/3 ML VIAL.NEB IH PRN (22:00)
[2021-12-06] MEDS ORDERED: MAG HYDROX/AL HYDROX/SIMETH 30 ML UDC PO PRN (22:00)
[2021-12-06] MEDS ORDERED: MAGNESIUM HYDROXIDE 30 ML UDC PO PRN (22:00)
[2021-12-06] MEDS ORDERED: ACETAMINOPHEN 325 MG TABLET PO PRN (22:00)
[2021-12-06] MEDS ORDERED: EPOETIN ALFA (10,000 UNIT) 10,000 UNIT/ML VIAL SQ SCH (22:00)
[2021-12-06] MEDS ORDERED: ZOLPIDEM TARTRATE 5 MG TABLET PO PRN (22:00)
[2021-12-06] MEDS ORDERED: CLONIDINE HCL 0.1 MG TABLET PO PRN (22:00)
[2021-12-06] MEDS ORDERED: EPOETIN ALFA-EPBX 10,000 UNIT/ML VIAL SQ PRN (22:00)
[2021-12-06] MEDS ORDERED: ONDANSETRON HCL/PF 4 MG/2 ML VIAL IVP PRN (22:00)
--- NOTE | 2021-12-06 22:25 | NUR ---
CALLED [facility] AND SPOKE TO JANNIE; ASKED JANNIE TO FAX PT'S FACE SHEET, MEDICAL HX, MEDS, AND POLST.
--- NOTE | 2021-12-06 22:57 | NUR ---
BLOOD COLLECTED AND SENT TO LAB
--- NOTE | 2021-12-06 22:58 | NUR ---
ASKED JOLIE GARCIA TO F/U WITH COVID RESULTS.
[2021-12-07] MEDS ORDERED: DOCUSATE SODIUM 100 MG CAPSULE PO ONE (02:52)
[2021-12-07] MEDS ORDERED: CEFEPIME 1 GM VIAL ONE (02:52)
[2021-12-07] MEDS ORDERED: DOCUSATE SODIUM LIQ 100 MG/10 ML UDC ONE ×3 (02:53→21:44)
[2021-12-07] MEDS ORDERED: OLANZAPINE 5 MG TABLET ONE (02:53)
[2021-12-07] MEDS: OLANZAPINE 2.5 MG TABLET PO SCH ×2 (03:00→22:07)
[2021-12-07] MEDS: DOCUSATE SODIUM 100 MG CAPSULE PO SCH ×2 (03:00→22:07)
[2021-12-07 04:42] LABS: BASOPHILS # (AUTO) 0.1 K/uL (0.0-0.2); BASOPHILS % (AUTO) 0.8 % (0.0-2.0); EOSINOPHILS % (AUTO) 1.2 % (0.0-6.0); HEMATOCRIT 21 % (33-45); LYMPHOCYTES # (AUTO) 2.3 K/uL (0.8-4.8); LYMPHOCYTES % (AUTO) 16.1 % (20.0-44.0); MEAN CORPUSCULAR HGB CONC 33 g/dl (31.0-36.0); MEAN CORPUSCULAR VOLUME 96 fL (82-100); NEUTROPHILS # (AUTO) 10.6 K/uL (1.8-8.9); NEUTROPHILS % (AUTO) 74.9 % (43.0-81.0); PLATELET COUNT (AUTO) 586 K/uL (150-450); RED BLOOD CELL COUNT(AUTO) 2.24 MIL/uL (4.0-5.2); WHITE BLOOD COUNT (AUTO) 14.1 K/uL (4.3-11.0)
[2021-12-07 04:58] LABS: CARBON DIOXIDE 25 mmol/L (21-32); CHLORIDE 103 mmol/L (98-107); CREATININE 3.2 mg/dL (0.6-1.3); GLUCOSE 176 mg/dL (74-106); MAGNESIUM 2.4 mg/dL (1.8-2.4); POTASSIUM 3.3 mmol/L (3.5-5.1); SODIUM SERUM 140 mmol/L (136-145); UREA NITROGEN, BLOOD 33 mg/dL (7-18)
[2021-12-07] MEDS ORDERED: CEFEPIME 2 GM in IV D5W 100 ML IV SCH (05:00)
--- NOTE | 2021-12-07 05:48 | NUR ---
HGB 7.0 RELAYED TO MINA CANTOR. NNO ORDERS
[2021-12-07] MEDS ORDERED: LEVOTHYROXINE SODIUM 100 MCG TABLET ONE (07:49)
[2021-12-07] MEDS ORDERED: PANTOPRAZOLE 40 MG TABLET.DR PO ONE (07:50)
[2021-12-07 08:01] LABS: BAND % (MANUAL) 1 % (0.0-5.0); EOSINOPHILS % (MANUAL) 4 % (0-4); LYMPHOCYTES % (MANUAL) 15 % (16-48); MONOCYTES % (MANUAL) 2 % (0-11.0); NEUTROPHILS % (MANUAL) 78 (42-76)
[2021-12-07] MEDS: LEVOTHYROXINE SODIUM 88 MCG TABLET PO SCH (08:05)
[2021-12-07] MEDS: PANTOPRAZOLE 40 MG TABLET.DR PO SCH (08:05)
[2021-12-07] MEDS ORDERED: CEFEPIME 1 GM in IV D5W 50 ML IV SCH (09:00)
[2021-12-07] MEDS: SEVELAMER CARBONATE 800 MG TABLET PO SCH ×3 (09:00→18:38)
[2021-12-07] MEDS: ASCORBIC ACID 500 MG TABLET PO SCH (10:00)
[2021-12-07] MEDS: CHLORHEXIDINE GLUCONATE 15 ML UDC MM SCH ×2 (10:00→22:00)
[2021-12-07] MEDS: ZINC OXIDE 56.7 GM TUBE TP SCH (10:00)
[2021-12-07] MEDS: ESCITALOPRAM OXALATE (10 MG) 10 MG TABLET PO SCH (10:00)
[2021-12-07] MEDS: glipiZIDE 5 MG TABLET PO SCH ×2 (10:00→18:38)
[2021-12-07] MEDS: METOPROLOL TARTRATE 25 MG TABLET PO SCH ×2 (10:00→22:07)
[2021-12-07] MEDS: ASPIRIN EC 81 MG TABLET.DR PO SCH (10:00)
[2021-12-07] MEDS: DAPTOMYCIN 500 MG in IV NS 0.9% 50 ML IV SCH (10:00)
[2021-12-07] MEDS: NIFEdipine XL (30MG) 30 MG TAB PO SCH ×2 (10:00→18:38)
[2021-12-07] MEDS: LOSARTAN POTASSIUM 50 MG TABLET PO SCH ×2 (10:00→18:37)
[2021-12-07] MEDS: CARVEDILOL 6.25 MG TABLET PO SCH ×2 (10:00→18:37)
[2021-12-07] MEDS ORDERED: CARVEDILOL 6.25 MG TABLET ONE ×2 (10:06→17:52)
[2021-12-07] MEDS ORDERED: ASPIRIN EC 81 MG TABLET.DR PO ONE (10:06)
[2021-12-07] MEDS ORDERED: ZINC SULFATE 220 MG CAPSULE ONE (10:07)
[2021-12-07] MEDS ORDERED: LOSARTAN POTASSIUM 50 MG TABLET ONE ×2 (10:07→17:53)
[2021-12-07] MEDS ORDERED: ESCITALOPRAM OXALATE (10 MG) 10 MG TABLET ONE (10:07)
[2021-12-07] MEDS ORDERED: glipiZIDE 10 MG TABLET ONE ×2 (10:07→17:53)
[2021-12-07] MEDS ORDERED: ASCORBIC ACID 500 MG TABLET ONE (10:07)
[2021-12-07] MEDS ORDERED: METOPROLOL TARTRATE 25 MG TABLET ONE ×2 (10:08→21:44)
[2021-12-07] MEDS ORDERED: EPOETIN ALFA (10,000 UNIT) 10,000 UNIT/ML VIAL IV PRN (11:00)
[2021-12-07] MEDS: POLYETHYLENE GLYCOL 3350 17 GM POWD.PACK PO SCH (11:00)
[2021-12-07] MEDS: VIT B CMPLX 3/FA/VIT C/BIOTIN 1 TAB TABLET PO SCH (11:05)
--- NOTE | 2021-12-07 11:06 | NUR ---
Alex trimble in [facility] - 12/07/21 at 1108 by AISHA BARTOLO [facility] [place] [phone]
[2021-12-07] MEDS: RIVAROXABAN 10 MG TABLET PO SCH (13:18)
[2021-12-07] MEDS: PROSOURCE / PROSTAT (PYXIS) 30 ML UDC GT SCH (13:18)
[2021-12-07] MEDS: NEPRO 1,000 ML BOTTLE GT PRN (13:19)
--- NOTE | 2021-12-07 13:23 | NUR ---
GTUBE FEEDING NEPHRO @ 45ML/HR; PATENT AND INTACT. 10ML RESIDUAL NOTED. ADLS DONE. BMX1. VSS. PT IN NO DISTRESS AT THIS TIME
[2021-12-07] MEDS ORDERED: NIFEdipine (10MG) 10 MG CAPSULE ONE (17:53)
[2021-12-07] MEDS: CEFEPIME 1 GM in IV D5W 50 ML IV SCH (20:02)
--- NOTE | 2021-12-07 21:28 | NUR ---
BED 116-1
[2021-12-07] MEDS: INSULIN GLARGINE, 100 UNIT/ML CARTRIDGE SQ SCH (22:09)
--- NOTE | 2021-12-08 00:13 | NUR ---
REPORT GIVEN TO MJ YEUNG RN FOR SALVATORE.
--- NOTE | 2021-12-08 00:18 | NUR ---
PT TRANSPORTED TO ROOM 116 ON SENIOR MECHANICAL DESIGNER PER ACLS PROTOCOL. ALL V/S STABLE AT TIME OF TRANSFER.
--- NOTE | 2021-12-08 00:28 | NUR ---
PT TRANSFERRED TO [facility] VIA ACLS PROTOCOL. ALL BELONGINGS AND MEDS BROUGHT WITH PT. VSS TOLERATING 5LPM VIA TPIECE AT 100%. REPORT GIVEN TO RA
--- NOTE | 2021-12-08 00:35 | NUR ---
RN NOTES ADMITTED A 71 Y/O FEMALE PATIENT FROM ER VIA GURNEY. A/O X1 NON VERBAL ON TRACHEOSTOMY TUBE PAULINE XLT #7 INTACT CONNECTED TO T-PIECE @6LPM SATING 98%. WITH GT INTACT. PATIENT SAFELY TRANSFER TO BED. VITAL SIGNS TAKEN AND RECORDED AFEBRILE. SKIN ASSESSMENT DONE. PICTURE TAKEN. ALL SAFETY MEASURES IN PLACE. HOB ELEVATED. CALL LIGHT WITHIN REACH. BED ON LOWEST POSITION AND LOCKED. WILL CONTINUE TO MONITOR.
[2021-12-08 02:00] VITALS: BP 155/59
[2021-12-08 04:00] VITALS: BP 128/68
--- NOTE | 2021-12-08 05:15 | NUR ---
RN NOTES PATIENT REMAINS STABLE. HEMODIALYSIS STARTED BY HD NURSE. WILL CONTINUE TO MONITOR
--- NOTE | 2021-12-08 06:29 | NUR ---
RN NOTES PATIENT REMAINS IN STABLE CONDITION. NO SOB NOT IN DISTRESS NO SIGNIFICANT CHANGES IN HEALTH CONDITION. ALL DUE MEDS GIVEN ORDERED. ALL SAFETY MEASURES IN PLACE AT ALL TIMES. HOB ELEVATED. CALL LIGHT WITHIN REACH. STILL ON HD. TRACH INTACT SATING 98%. WILL ENDORSED.
[2021-12-08] MEDS: LEVOTHYROXINE SODIUM 88 MCG TABLET PO SCH (07:30)
--- NOTE | 2021-12-08 07:32 | NUR ---
WOUND CARE CONSULT: REVIEWED CHART, NURSING DOCUMENTATION AND PHOTOS WHICH INDICATE LEFT BUTTOCK DEEP TISSUE INJURY IN EVOLUTION. SLIGHT REDNESS TO SKIN FOLDS AND DISCOLORATION/SCAB TO RT FOOT, ALL PRESENT ON ADMISSION. RECOMMENDATIONS MADE FOR SKIN PROTECTION AND WOUND CARE. DISCUSSED WITH NURSING STAFF. MD IN AGREEMENT WITH PLAN OF CARE.
[2021-12-08 08:00] VITALS: BP 104/82
[2021-12-08] MEDS: ASPIRIN EC 81 MG TABLET.DR PO SCH (08:22)
[2021-12-08] MEDS: CHLORHEXIDINE GLUCONATE 15 ML UDC MM SCH ×2 (08:22→21:44)
[2021-12-08] MEDS: SEVELAMER CARBONATE 800 MG TABLET PO SCH ×3 (08:22→17:13)
[2021-12-08] MEDS: PANTOPRAZOLE 40 MG TABLET.DR PO SCH (08:22)
[2021-12-08] MEDS: ASCORBIC ACID 500 MG TABLET PO SCH (08:23)
[2021-12-08] MEDS: CARVEDILOL 6.25 MG TABLET PO SCH ×2 (08:23→17:15)
[2021-12-08] MEDS: ZINC OXIDE 56.7 GM TUBE TP SCH (08:23)
[2021-12-08] MEDS: RIVAROXABAN 10 MG TABLET PO SCH (08:25)
[2021-12-08] MEDS: glipiZIDE 5 MG TABLET PO SCH ×2 (08:35→17:14)
[2021-12-08] MEDS: POLYETHYLENE GLYCOL 3350 17 GM POWD.PACK PO SCH (08:35)
[2021-12-08] MEDS: NIFEdipine XL (30MG) 30 MG TAB PO SCH ×2 (08:35→17:14)
[2021-12-08] MEDS: VIT B CMPLX 3/FA/VIT C/BIOTIN 1 TAB TABLET PO SCH (08:35)
[2021-12-08] MEDS: METOPROLOL TARTRATE 25 MG TABLET PO SCH ×2 (08:36→21:44)
[2021-12-08] MEDS: LOSARTAN POTASSIUM 50 MG TABLET PO SCH ×2 (08:36→17:14)
[2021-12-08] MEDS: ESCITALOPRAM OXALATE (10 MG) 10 MG TABLET PO SCH (08:36)
[2021-12-08] MEDS ORDERED: DAPTOMYCIN 500 MG/VIAL VIAL IV SCH (09:00)
[2021-12-08] MEDS: PROSOURCE / PROSTAT (PYXIS) 30 ML UDC GT SCH (09:39)
[2021-12-08 12:00] VITALS: BP 106/60
[2021-12-08 16:00] VITALS: BP 150/80
--- NOTE | 2021-12-08 18:38 | NUR ---
RN NOTES 71 Y/O FEMALE PATIENT WITH TRACHEOSTOMY TUBE SHIJAMARI XLT #7 INTACT CONNECTED TO T-PIECE @6LPM SATING 98%. WITH GT INTACT RUNNING AT NEPHRO 45CC. SKIN ASSESSMENT DONE REPLACED MYPOLEX ON SACRAL REDNESS. PT HD 1L REMOVED. ALL SAFETY MEASURES IN PLACE. HOB ELEVATED. CALL LIGHT WITHIN REACH. BED ON LOWEST POSITION AND LOCKED. WILL CONTINUE TO MONITOR.
[2021-12-08] MEDS: CEFEPIME 1 GM in IV D5W 50 ML IV SCH (19:49)
[2021-12-08] MEDS: Z GUARD REMEDY 4 OZ OINT TP PRN (19:50)
[2021-12-08 20:00] VITALS: BP 131/54
--- NOTE | 2021-12-08 20:00 | NUR ---
RN OPENING NOTE RECEIVED PATIENT IN BED. PATIENT IS NONVERBAL BUT NODS HER HEAD WHEN ASKED QUESTIONS. ON OXYGEN VIA T-PIECE AT 6L/MIN. RESPIRATIONS ARE DEWAYNE AND UNLABORED. NO S/SS OB NOTED. NO S/S PAIN NOTED. NO DISTRESS. TELE MONITOR READS SINUS RHYTHM HR 75. IV ACCESS IN JASE MIDLINE PATENT AND SALINE LOCKED. GTUBE, NO RESIDUAL, RUNNING NEPRO 245CC/HR. BED I SLOW AND LOCKED, HOB ELEVATED IN SEMI FOWLERS, SIDE RIALS UP X3, CALL LIGHT WITHIN REACH. ALARMS ON AND SAFETY PRECAUTIONS IN PLACE.
[2021-12-08] MEDS: OLANZAPINE 2.5 MG TABLET PO SCH (21:44)
[2021-12-08] MEDS: DOCUSATE SODIUM 100 MG CAPSULE PO SCH (21:44)
[2021-12-08] MEDS: INSULIN GLARGINE, 100 UNIT/ML CARTRIDGE SQ SCH (21:57)
[2021-12-09] VITALS: BP 134/60
--- NOTE | 2021-12-09 | NUR ---
RT NOTE SPUTUM INDUCTION OBTAINED. SMALL THICK WHITE/YELLOW SECRETIONS NOTED.
[2021-12-09 04:00] VITALS: BP 130/48
--- NOTE | 2021-12-09 06:40 | NUR ---
RN CLOSING NOTE RESTING IN BED. NONVERBAL, NODS. REMAINS ON T-PIECE AT 6L/MIN. NO RESP DISTRESS. SPUTUM CULTURE COLLECTED. NO S/S PAIN/ TELE IS SINUS RHYTHM . JASE MIDLINE MAINTAINED. SunfireUBE RUNNING Smithers AvanzaRO @45CC/HR. BED REMAIN SLOW AND LOCKED, HOB ELEVATED IN SEMI FOWLERS, SIDE RIALS UP X3, CALL LIGHT WITHIN REACH. ALARMS ON AND SAFETY PRECAUTIONS IN PLACE. WILL ENDORSE TO ONCOMING SHIFT.
--- NOTE | 2021-12-09 07:18 | NUR ---
RN OPENING NOTE RECEIVED PATIENT IN BED, A/NON-VERBAL. PATIENT WITH T-PIECE ON OXYGEN 3L/MIN WITH EVEN AND UNLABORED BREATHING. NO RESPIRATORY DISTRESS NOTED AT THIS TIME. OXYGEN SATURATION WNL. NO C/O PAIN. PATIENT ON TELE MONITOR READS SR. WITH JASE MIDLINE IV ACCESS, PATENT AND INTACT, ON SALINE LOCK. SAFETY MEASURES ENSURED WITH BED IN LOW AND LOCKED, HOB ELEVATED IN SEMI FOWLERS, SIDE RIALS UP X3, SUSAN LIGHT WITHIN REACH. ALARMS ON AND SAFETY MEASURES IN PLACE. WILL CONTINUE TO MONITOR PATIENT.
[2021-12-09 08:00] VITALS: BP 109/66
[2021-12-09 08:00] LABS: BASOPHILS # (AUTO) 0.1 K/uL (0.0-0.2); BASOPHILS % (AUTO) 0.9 % (0.0-2.0); EOSINOPHILS % (AUTO) 1.2 % (0.0-6.0); HEMATOCRIT 24 % (33-45); HEMOGLOBIN 7.8 g/dL (11.5-14.8); LYMPHOCYTES # (AUTO) 2.5 K/uL (0.8-4.8); LYMPHOCYTES % (AUTO) 19.1 % (20.0-44.0); MEAN CORPUSCULAR HGB CONC 32 g/dl (31.0-36.0); MEAN CORPUSCULAR VOLUME 98 fL (82-100); MONOCYTES # (AUTO) 1.2 K/uL (0.1-1.30); MONOCYTES % (AUTO) 8.9 % (2.0-12.0); NEUTROPHILS % (AUTO) 69.9 % (43.0-81.0); PLATELET COUNT (AUTO) 582 K/uL (150-450); RED BLOOD CELL COUNT(AUTO) 2.46 MIL/uL (4.0-5.2); WHITE BLOOD COUNT (AUTO) 12.9 K/uL (4.3-11.0)
[2021-12-09 08:38] LABS: CALCIUM, SERUM 9.2 mg/dL (8.5-10.1); CARBON DIOXIDE 22 mmol/L (21-32); CHLORIDE 98 mmol/L (98-107); CREATININE 3.3 mg/dL (0.6-1.3); GLUCOSE 213 mg/dL (74-106); POTASSIUM 3.4 mmol/L (3.5-5.1); SODIUM SERUM 134 mmol/L (136-145); UREA NITROGEN, BLOOD 35 mg/dL (7-18)
[2021-12-09] MEDS: RIVAROXABAN 10 MG TABLET PO SCH (09:00)
[2021-12-09] MEDS: ZINC OXIDE 56.7 GM TUBE TP SCH (09:00)
[2021-12-09] MEDS: NIFEdipine XL (30MG) 30 MG TAB PO SCH ×2 (09:00→17:00)
[2021-12-09] MEDS: PANTOPRAZOLE 40 MG TABLET.DR PO SCH (09:39)
[2021-12-09] MEDS: DAPTOMYCIN 500 MG in IV NS 0.9% 50 ML IV SCH (09:39)
[2021-12-09] MEDS: POLYETHYLENE GLYCOL 3350 17 GM POWD.PACK PO SCH (09:40)
[2021-12-09] MEDS: VIT B CMPLX 3/FA/VIT C/BIOTIN 1 TAB TABLET PO SCH (09:40)
[2021-12-09] MEDS: LEVOTHYROXINE SODIUM 88 MCG TABLET PO SCH (09:40)
[2021-12-09] MEDS: LOSARTAN POTASSIUM 50 MG TABLET PO SCH ×2 (09:41→17:00)
[2021-12-09] MEDS: CHLORHEXIDINE GLUCONATE 15 ML UDC MM SCH ×2 (09:42→21:46)
[2021-12-09] MEDS: ASCORBIC ACID 500 MG TABLET PO SCH (09:42)
[2021-12-09] MEDS: glipiZIDE 5 MG TABLET PO SCH ×2 (09:42→17:42)
[2021-12-09] MEDS: ESCITALOPRAM OXALATE (10 MG) 10 MG TABLET PO SCH (09:42)
[2021-12-09] MEDS: ASPIRIN EC 81 MG TABLET.DR PO SCH (09:42)
[2021-12-09] MEDS: CARVEDILOL 6.25 MG TABLET PO SCH ×2 (09:42→17:00)
[2021-12-09] MEDS: SEVELAMER CARBONATE 800 MG TABLET PO SCH ×3 (09:42→17:42)
[2021-12-09] MEDS: METOPROLOL TARTRATE 25 MG TABLET PO SCH ×2 (09:43→21:46)
[2021-12-09] MEDS: Z GUARD REMEDY 4 OZ OINT TP PRN (10:06)
--- NOTE | 2021-12-09 10:16 | NUR ---
RN NOTE Z GUEARD GIVEN = ZINC OXIDE TOPICAL
[2021-12-09] MEDS: PROSOURCE / PROSTAT (PYXIS) 30 ML UDC GT SCH (10:18)
[2021-12-09 12:00] VITALS: BP 137/59
[2021-12-09 16:00] VITALS: BP 126/49
--- NOTE | 2021-12-09 16:28 | NUR ---
RN NOTE SPOKE WITH SON PANCHO, HE CLAIMS THAT NOBODY CALLED HIM ABOUT ANY PLAN TO TRANSFER PATIENT TO ANOTHER HOSPITAL. HE WISH TO SPEAK WITH . DR. VALDERRAMA NOTIFIED ABOUT PATIENT'S SON'S REQUEST. GAVE SON'S NUMBER . WILL CONTINUE TO MONITOR PATIENT. Addendum: 12/09/21 at 1844 by JACKIE THOMPSON RN WRONG ENTRY
--- NOTE | 2021-12-09 17:30 | NUR ---
RN NOTE ANTIHYPERTENSIVE NOT GIVEN, BP IS 126/48 AND PATIENT WILL HAVE HD. NO SIGNS AND SYMPTOMS OF HYPOTENSION NOTED. WILL CONTINUE TO MONITOR.
--- NOTE | 2021-12-09 18:45 | NUR ---
RN CLOSING NOTE PATIENT IN BED, A/NON-VERBAL. PATIENT WITH T-PIECE ON OXYGEN 3L/MIN WITH EVEN AND UNLABORED BREATHING. NO RESPIRATORY DISTRESS NOTED AT THIS TIME. OXYGEN SATURATION WNL. NO C/O PAIN. PATIENT ON TELE MONITOR READS SR. WITH JASE MIDLINE IV ACCESS, PATENT AND INTACT, ON SALINE LOCK. SAFETY MEASURES ENSURED WITH BED IN LOW AND LOCKED, HOB ELEVATED IN SEMI FOWLERS, SIDE RIALS UP X3, SUSAN LIGHT WITHIN REACH. ALARMS ON AND SAFETY MEASURES IN PLACE. WILL ENDORSE TO NEXT SHIFT FOR CONTINUITY OF CARE.
[2021-12-09] MEDS: NEPRO 1,000 ML BOTTLE GT PRN (18:48)
--- NOTE | 2021-12-09 19:10 | NUR ---
RN NOTES RECEIVED REPORT FROM MORNING RN PATIENT A/O X1 OPENS EYES NOT ON DISTRESS. ON T-PIECE AT @ 3LPM TOLERATING WELL. WITH JASE MIDLINE PATENT FLUSHES WELL. WITH l CHEST PERMACATH NO BLEEDING INTACT. ON HEMODIALYSIS STARTED @ 1849 HD NURSE AT BEDSIDE. WITH GT INTACT NO RESIDUAL NOTED. ON CONTINUOS FEEDING OF NEPRO @ 45ML/HR TOLERATING WELL. ALL SAFETY MEASURES IN PLACE AT ALL TIMES. HOB ELEVATED. CALL LIGHT WITHIN REACH. BED ON LOWEST POSITION AND LOCKED.WILL CONTINUE TO MONITOR
[2021-12-09 20:00] VITALS: BP 113/58
[2021-12-09] MEDS: CEFEPIME 1 GM in IV D5W 50 ML IV SCH (20:06)
[2021-12-09] MEDS: OLANZAPINE 2.5 MG TABLET PO SCH (21:46)
[2021-12-09] MEDS: DOCUSATE SODIUM 100 MG CAPSULE PO SCH (21:46)
--- NOTE | 2021-12-09 21:49 | NUR ---
RN NOTES HEMODIALYSIS COMPLETED WITH UF GOAL OF 1L. BS 139 MG/DL DUE LANTUS 10 UNITS GIVEN ORDERED. WILL CONTINUE TO MONITOR
[2021-12-09] MEDS: INSULIN GLARGINE, 100 UNIT/ML CARTRIDGE SQ SCH (21:53)
[2021-12-10] VITALS: BP 106/51
[2021-12-10 04:00] VITALS: BP 130/67
--- NOTE | 2021-12-10 07:29 | NUR ---
RN NOTES PATIENT IN BED, A/NON-VERBAL. PATIENT WITH T-PIECE ON OXYGEN 2L/MIN WITH EVEN AND UNLABORED BREATHING. NO RESPIRATORY DISTRESS NOTED AT THIS TIME. OXYGEN SATURATION WNL. NO C/O PAIN. PATIENT ON TELE MONITOR READS SR. WITH JASE MIDLINE IV ACCESS, PATENT AND INTACT, ON SALINE LOCK. SAFETY MEASURES ENSURED WITH BED IN LOW AND LOCKED, HOB ELEVATED IN SEMI FOWLERS, SIDE RIALS UP X3, SUSAN LIGHT WITHIN REACH. ALARMS ON AND SAFETY MEASURES IN PLACE. WILL ENDORSE TO NEXT SHIFT FOR CONTINUITY OF CARE.
[2021-12-10] MEDS: PANTOPRAZOLE 40 MG TABLET.DR PO SCH (07:30)
--- NOTE | 2021-12-10 07:31 | NUR ---
PHONE SPECIALIST OPENING NOTE RECEIVED PATIENT IN BED, A/NON-VERBAL. PATIENT WITH T-PIECE ON OXYGEN 2L/MIN WITH EVEN AND UNLABORED BREATHING. NO RESPIRATORY DISTRESS NOTED AT THIS TIME. PATIENT ON TELE MONITOR READS SR. WITH JASE MIDLINE IV ACCESS SL. SAFETY MEASURES IN PLACE WITH BED IN LOW AND LOCKED, HOB ELEVATED IN SEMI FOWLERS, SIDE RIALS UP X2, SUSAN LIGHT WITHIN REACH. ALARMS ON AND SAFETY MEASURES IN PLACE.
[2021-12-10 08:00] VITALS: BP 121/47
[2021-12-10] MEDS: SEVELAMER CARBONATE 800 MG TABLET PO SCH ×3 (08:00→17:32)
[2021-12-10] MEDS: NIFEdipine XL (30MG) 30 MG TAB PO SCH ×2 (09:00→17:00)
[2021-12-10] MEDS: CARVEDILOL 6.25 MG TABLET PO SCH ×2 (09:00→17:00)
[2021-12-10] MEDS: ASCORBIC ACID 500 MG TABLET PO SCH (09:17)
[2021-12-10] MEDS: ASPIRIN EC 81 MG TABLET.DR PO SCH (09:17)
[2021-12-10] MEDS: CHLORHEXIDINE GLUCONATE 15 ML UDC MM SCH ×2 (09:17→21:30)
[2021-12-10] MEDS: POLYETHYLENE GLYCOL 3350 17 GM POWD.PACK PO SCH (09:17)
[2021-12-10] MEDS: METOPROLOL TARTRATE 25 MG TABLET PO SCH ×2 (09:18→21:33)
[2021-12-10] MEDS: VIT B CMPLX 3/FA/VIT C/BIOTIN 1 TAB TABLET PO SCH (09:18)
[2021-12-10] MEDS: ESCITALOPRAM OXALATE (10 MG) 10 MG TABLET PO SCH (09:19)
[2021-12-10] MEDS: glipiZIDE 5 MG TABLET PO SCH ×2 (09:19→17:32)
[2021-12-10] MEDS: LOSARTAN POTASSIUM 50 MG TABLET PO SCH ×2 (09:19→17:00)
[2021-12-10] MEDS: LEVOTHYROXINE SODIUM 88 MCG TABLET PO SCH (09:19)
[2021-12-10] MEDS: RIVAROXABAN 10 MG TABLET PO SCH (09:23)
[2021-12-10] MEDS: ZINC OXIDE 56.7 GM TUBE TP SCH (09:24)
[2021-12-10] MEDS: PROSOURCE / PROSTAT (PYXIS) 30 ML UDC GT SCH (09:27)
--- NOTE | 2021-12-10 10:31 | NUR ---
AUTOMOBILE BODY REPAIR CHIEF NOTE PATIENTS RIGHT UPPER ARM MIDLINE INFILTRATED UNABLE TO FLUSH, OR WITHDRAW. REMOVED LINE AND PLACED ORDER FOR NEW MIDLINE.
[2021-12-10 12:00] VITALS: BP 122/45
[2021-12-10 15:43] LABS: BASOPHILS % (AUTO) 0.2 % (0.0-2.0); EOSINOPHILS % (AUTO) 1.2 % (0.0-6.0); HEMATOCRIT 24 % (33-45); HEMOGLOBIN 7.9 g/dL (11.5-14.8); LYMPHOCYTES # (AUTO) 2.9 K/uL (0.8-4.8); LYMPHOCYTES % (AUTO) 16.3 % (20.0-44.0); MEAN CORPUSCULAR HGB CONC 32 g/dl (31.0-36.0); MEAN CORPUSCULAR VOLUME 98 fL (82-100); MONOCYTES # (AUTO) 1.4 K/uL (0.1-1.30); MONOCYTES % (AUTO) 7.9 % (2.0-12.0); NEUTROPHILS % (AUTO) 74.4 % (43.0-81.0); PLATELET COUNT (AUTO) 519 K/uL (150-450); RED BLOOD CELL COUNT(AUTO) 2.48 MIL/uL (4.0-5.2); WHITE BLOOD COUNT (AUTO) 17.6 K/uL (4.3-11.0)
[2021-12-10 15:50] LABS: CALCIUM, SERUM 8.9 mg/dL (8.5-10.1); CARBON DIOXIDE 26 mmol/L (21-32); CHLORIDE 96 mmol/L (98-107); CREATININE 2.8 mg/dL (0.6-1.3); GLUCOSE 92 mg/dL (74-106); POTASSIUM 3.6 mmol/L (3.5-5.1); SODIUM SERUM 133 mmol/L (136-145); UREA NITROGEN, BLOOD 31 mg/dL (7-18)
[2021-12-10 16:00] VITALS: BP 122/45
[2021-12-10 17:05] LABS: EOSINOPHILS % (MANUAL) 3 % (0-4); LYMPHOCYTES % (MANUAL) 26 % (16-48); MONOCYTES % (MANUAL) 3 % (0-11.0); NEUTROPHILS % (MANUAL) 68 (42-76)
--- NOTE | 2021-12-10 19:09 | NUR ---
MAIL TELLER CLOSING NOTE 116-1 PATIENT IN BED, A/NON-VERBAL RESPONSE TO TOUCH. PATIENT WITH T-PIECE ON OXYGEN 2L/MIN WITH EVEN AND UNLABORED BREATHING. NO RESPIRATORY DISTRESS NOTED AT THIS TIME. PATIENT ON TELE MONITOR READS SR. WITH PAULA MIDLINE IV ACCESS SL. SCHEDULED MEDICATIONS GVEN. GT SETTINGS NEPRO 45ML/HR CURRENTLY RUNNING WITH NO RESIDULA. SAFETY MEASURES IN PLACE WITH BED IN LOW AND LOCKED, HOB ELEVATED IN SEMI FOWLERS, SIDE RIALS UP X2, SUSAN LIGHT WITHIN REACH. ALARMS ON AND SAFETY MEASURES IN PLACE. WILL ENDORSE TO NIGHT NURSE FOR SALVATORE.
[2021-12-10 20:00] VITALS: BP 123/62
--- NOTE | 2021-12-10 20:00 | NUR ---
RN NOTE PATIENT AWAKE, NON VERBAL, RESPONSIVE TO STIMULI. ON O2 3L VIA T-PIECE, NO S/S OF RESPIRATORY DISTRESS. NOTED WITH G-TUBE NEPRO @ 45ML/HR, NO RESIDUAL NOTED. IV ACCESS ON JASE MIDLINE PATENT AND INTACT. LEFT CHEST WALL PERMACATH NOTED, NO S/S OF INFECTION. BED LOCKED AND IN LOWEST POSITION. CALL LIGHT WITHIN REACH. ALL NEEDS ANTICIPATED.
[2021-12-10] MEDS: CEFEPIME 1 GM in IV D5W 50 ML IV SCH (20:05)
[2021-12-10] MEDS: OLANZAPINE 2.5 MG TABLET PO SCH (21:30)
[2021-12-10] MEDS: DOCUSATE SODIUM 100 MG CAPSULE PO SCH (21:31)
[2021-12-10] MEDS: INSULIN GLARGINE, 100 UNIT/ML CARTRIDGE SQ SCH (21:33)
[2021-12-11] VITALS: BP 129/69
[2021-12-11 04:00] VITALS: BP 129/82
[2021-12-11] MEDS: NEPRO 1,000 ML BOTTLE GT PRN (04:00)
--- NOTE | 2021-12-11 07:18 | NUR ---
RN NOTE PATIENT NON VERBAL, RESPONSIVE TO STIMULI. ON O2 3L VIA T-PIECE, NO S/S OF RESPIRATORY DISTRESS. G-TUBE RUNNING NEPRO @ 45ML/HR, NO RESIDUAL NOTED. IV ACCESS ON JASE MIDLINE PATENT AND INTACT. LEFT CHEST WALL PERMACATH NOTED, NO S/S OF INFECTION. TURNED AND REPOSITIONED. DUE MEDS GIVEN ORDERED. BED LOCKED AND IN LOWEST POSITION. CALL LIGHT WITHIN REACH. ENDORSED TO AM SHIFT.
--- NOTE | 2021-12-11 07:27 | NUR ---
DEPUTY SHERIFF K9 HANDLER OPENING NOTE RECEIVED PATIENT IN BED, A/NON-VERBAL. PATIENT WITH T-PIECE ON OXYGEN 2L/MIN WITH EVEN AND UNLABORED BREATHING. NO RESPIRATORY DISTRESS NOTED AT THIS TIME. PATIENT ON TELE MONITOR READS SR. WITH PAULA MIDLINE IV ACCESS SL. GT NOTED TO BE RUNNING NEPRO @45ML/HR. SAFETY MEASURES IN PLACE WITH BED IN LOW AND LOCKED, HOB ELEVATED IN SEMI FOWLERS, SIDE RIALS UP X2, SUSAN LIGHT WITHIN REACH. ALARMS ON AND SAFETY MEASURES IN PLACE.
[2021-12-11 08:00] VITALS: BP 103/55
[2021-12-11 08:34] LABS: BASOPHILS # (AUTO) 0.1 K/uL (0.0-0.2); BASOPHILS % (AUTO) 0.6 % (0.0-2.0); EOSINOPHILS % (AUTO) 1.9 % (0.0-6.0); HEMATOCRIT 24 % (33-45); HEMOGLOBIN 7.7 g/dL (11.5-14.8); LYMPHOCYTES # (AUTO) 2.3 K/uL (0.8-4.8); LYMPHOCYTES % (AUTO) 13.2 % (20.0-44.0); MEAN CORPUSCULAR HGB CONC 33 g/dl (31.0-36.0); MEAN CORPUSCULAR VOLUME 99 fL (82-100); MONOCYTES # (AUTO) 1.5 K/uL (0.1-1.30); NEUTROPHILS % (AUTO) 75.3 % (43.0-81.0); PLATELET COUNT (AUTO) 490 K/uL (150-450); RED BLOOD CELL COUNT(AUTO) 2.39 MIL/uL (4.0-5.2); WHITE BLOOD COUNT (AUTO) 17.2 K/uL (4.3-11.0)
[2021-12-11] MEDS: CHLORHEXIDINE GLUCONATE 15 ML UDC MM SCH ×2 (08:35→20:09)
[2021-12-11] MEDS: LOSARTAN POTASSIUM 50 MG TABLET PO SCH (08:36)
[2021-12-11] MEDS: POLYETHYLENE GLYCOL 3350 17 GM POWD.PACK PO SCH (08:36)
[2021-12-11] MEDS: ESCITALOPRAM OXALATE (10 MG) 10 MG TABLET PO SCH (08:36)
[2021-12-11] MEDS: VIT B CMPLX 3/FA/VIT C/BIOTIN 1 TAB TABLET PO SCH (08:36)
[2021-12-11] MEDS: ASCORBIC ACID 500 MG TABLET PO SCH (08:37)
[2021-12-11] MEDS: PANTOPRAZOLE 40 MG TABLET.DR PO SCH (08:37)
[2021-12-11] MEDS: ASPIRIN EC 81 MG TABLET.DR PO SCH (08:37)
[2021-12-11] MEDS: SEVELAMER CARBONATE 800 MG TABLET PO SCH ×2 (08:37→12:34)
[2021-12-11] MEDS: METOPROLOL TARTRATE 25 MG TABLET PO SCH (08:38)
[2021-12-11] MEDS: LEVOTHYROXINE SODIUM 88 MCG TABLET PO SCH (08:38)
[2021-12-11] MEDS: glipiZIDE 5 MG TABLET PO SCH (08:38)
[2021-12-11] MEDS: CARVEDILOL 6.25 MG TABLET PO SCH (08:38)
[2021-12-11] MEDS: NIFEdipine XL (30MG) 30 MG TAB PO SCH ×2 (08:38→17:34)
[2021-12-11] MEDS: RIVAROXABAN 10 MG TABLET PO SCH (08:39)
[2021-12-11] MEDS: PROSOURCE / PROSTAT (PYXIS) 30 ML UDC GT SCH (08:40)
[2021-12-11] MEDS: ZINC OXIDE 56.7 GM TUBE TP SCH (08:40)
[2021-12-11] MEDS: DAPTOMYCIN 500 MG in IV NS 0.9% 50 ML IV SCH (08:49)
[2021-12-11 09:30] LABS: CALCIUM, SERUM 9.3 mg/dL (8.5-10.1); CARBON DIOXIDE 22 mmol/L (21-32); CHLORIDE 95 mmol/L (98-107); CREATININE 3.4 mg/dL (0.6-1.3); GLUCOSE 175 mg/dL (74-106); POTASSIUM 4.2 mmol/L (3.5-5.1); SODIUM SERUM 129 mmol/L (136-145); UREA NITROGEN, BLOOD 41 mg/dL (7-18)
[2021-12-11 10:32] LABS: BAND % (MANUAL) 5 % (0.0-5.0); LYMPHOCYTES % (MANUAL) 20 % (16-48); MONOCYTES % (MANUAL) 2 % (0-11.0); NEUTROPHILS % (MANUAL) 73 (42-76)
[2021-12-11 12:00] VITALS: BP 135/50
[2021-12-11] MEDS ORDERED: PHARMACY TO CHANGE PO MEDS TO GT/NG XX PRN (13:00)
[2021-12-11] MEDS ORDERED: CLONIDINE HCL 0.1 MG TABLET NG PRN (13:30)
[2021-12-11] MEDS ORDERED: ACETAMINOPHEN 650 MG/20.3 ML UDC NG PRN (13:30)
[2021-12-11] MEDS: ALBUMIN 25% 25 GM in PREMIX 1 EA IV PRN (13:32)
[2021-12-11] MEDS ORDERED: MAGNESIUM HYDROXIDE 30 ML UDC NG PRN (14:00)
[2021-12-11] MEDS ORDERED: MAG HYDROX/AL HYDROX/SIMETH 30 ML UDC NG PRN (14:00)
[2021-12-11 16:00] VITALS: BP 143/56
[2021-12-11] MEDS: CARVEDILOL 6.25 MG TABLET NG SCH (17:33)
[2021-12-11] MEDS: SEVELAMER CARBONATE 800 MG POWD.PACK NG SCH (17:33)
[2021-12-11] MEDS: LOSARTAN POTASSIUM 50 MG TABLET NG SCH (17:33)
[2021-12-11] MEDS: glipiZIDE 5 MG TABLET NG SCH (17:34)
[2021-12-11] MEDS: METOPROLOL TARTRATE 25 MG TABLET NG SCH (17:35)
--- NOTE | 2021-12-11 18:33 | NUR ---
RN COMPLEX CARE CLOSING NOTE 116-1 PATIENT IN BED, A/NON-VERBAL RESPONSE TO TOUCH. PATIENT WITH T-PIECE ON OXYGEN 3L/MIN WITH EVEN AND UNLABORED BREATHING. PATIENT SUCTIONED NEEDED THROUGH OUT SHIFT NO RESPIRATORY DISTRESS NOTED AT THIS TIME. PATIENT ON TELE MONITOR READS SR. WITH PAULA MIDLINE IV ACCESS SL. SCHEDULED MEDICATIONS GIVEN. GT SETTINGS NEPRO 45ML/HR CURRENTLY RUNNING WITH NO RESIDUAL. SAFETY MEASURES IN PLACE WITH BED IN LOW AND LOCKED, HOB ELEVATED IN SEMI FOWLERS, SIDE RIALS UP X2, SUSAN LIGHT WITHIN REACH. ALARMS ON AND SAFETY MEASURES IN PLACE. WILL ENDORSE TO NIGHT NURSE FOR SALVATORE.
--- NOTE | 2021-12-11 19:36 | NUR ---
RN OPENING NOTES RECEIVED CARE OF PATIENT WHILE PATIENT IN BED, A/O X2, NON-VERBAL, ABLE TO COMMUNICATE THROUGH FACIAL EXPRESSIONS. PATIENT WITH T-PIECE ON OXYGEN, WITH EVEN AND UNLABORED BREATHING. NO RESPIRATORY DISTRESS NOTED AT THIS TIME. PATIENT NOTED WITH PAULA MIDLINE IV ACCESS SL. GT NOTED TO BE RUNNING NEPRO @45ML/HR. SAFETY MEASURES IN PLACE WITH BED IN LOW AND LOCKED, HOB ELEVATED IN SEMI FOWLERS, SIDE RIALS UP X2, CALL LIGHT WITHIN REACH. ALARMS ON AND SAFETY MEASURES IN PLACE. WILL CONTINUE TO MONITOR.
[2021-12-11 20:00] VITALS: BP 151/42
[2021-12-11] MEDS: CEFEPIME 1 GM in IV D5W 50 ML IV SCH (20:03)
[2021-12-11] MEDS: OLANZAPINE 2.5 MG TABLET NG SCH (22:59)
[2021-12-11] MEDS: DOCUSATE SODIUM LIQ 100 MG/10 ML UDC NG SCH (22:59)
[2021-12-11] MEDS: INSULIN GLARGINE, 100 UNIT/ML CARTRIDGE SQ SCH (23:02)
[2021-12-12] VITALS: BP 148/47
[2021-12-12 04:00] VITALS: BP 117/72
--- NOTE | 2021-12-12 07:24 | NUR ---
SULFUR BURNER OPENING NOTE RECEIVED PATIENT IN BED, A/NON-VERBAL. PATIENT WITH T-PIECE ON OXYGEN 2L/MIN WITH EVEN AND UNLABORED BREATHING. NO RESPIRATORY DISTRESS NOTED AT THIS TIME. PATIENT ON TELE MONITOR READS SR. WITH PAULA MIDLINE IV ACCESS SL. GT NOTED TO BE RUNNING NEPRO @45ML/HR. SAFETY MEASURES IN PLACE WITH BED IN LOW AND LOCKED, HOB ELEVATED IN SEMI FOWLERS, SIDE RIALS UP X2, SUSAN LIGHT WITHIN REACH. ALARMS ON AND SAFETY MEASURES IN PLACE.
--- NOTE | 2021-12-12 07:51 | NUR ---
RN CLOSING NOTES ALL PATIENT NEEDS ATTENDED TO, ALL DUE MEDS GIVEN. NO SIGNIFICANT FINDINGS UPON ALL NURSING ASSESSMENTS. ALL APPROPRIATE ISOLATION PRECAUTIONS PUT IN PLACE. ALL SAFETY PRECAUTIONS FOLLOWED THROUGHOUT SHIFT. ENDORSED TO AM NURSE FOR SALVATORE.
[2021-12-12] MEDS: NEPRO 1,000 ML BOTTLE GT PRN (07:57)
[2021-12-12 08:00] VITALS: BP 140/61
[2021-12-12 08:43] LABS: BASOPHILS # (AUTO) 0.2 K/uL (0.0-0.2); BASOPHILS % (AUTO) 1.1 % (0.0-2.0); EOSINOPHILS % (AUTO) 0.9 % (0.0-6.0); HEMATOCRIT 22 % (33-45); HEMOGLOBIN 7.1 g/dL (11.5-14.8); LYMPHOCYTES # (AUTO) 2.2 K/uL (0.8-4.8); LYMPHOCYTES % (AUTO) 15.7 % (20.0-44.0); MEAN CORPUSCULAR HGB CONC 33 g/dl (31.0-36.0); MEAN CORPUSCULAR VOLUME 98 fL (82-100); MONOCYTES # (AUTO) 1.4 K/uL (0.1-1.30); NEUTROPHILS # (AUTO) 10.3 K/uL (1.8-8.9); NEUTROPHILS % (AUTO) 72.3 % (43.0-81.0); PLATELET COUNT (AUTO) 422 K/uL (150-450); RED BLOOD CELL COUNT(AUTO) 2.23 MIL/uL (4.0-5.2); WHITE BLOOD COUNT (AUTO) 14.2 K/uL (4.3-11.0)
[2021-12-12] MEDS: CHLORHEXIDINE GLUCONATE 15 ML UDC MM SCH ×2 (08:58→21:29)
[2021-12-12] MEDS: SEVELAMER CARBONATE 800 MG POWD.PACK NG SCH ×3 (08:58→17:34)
[2021-12-12] MEDS: PANTOPRAZOLE 40 MG/PACK PACK NG SCH (08:58)
[2021-12-12] MEDS: POLYETHYLENE GLYCOL 3350 17 GM POWD.PACK NG SCH (08:58)
[2021-12-12] MEDS: ASPIRIN 81 MG TAB.CHEW NG SCH (08:58)
[2021-12-12] MEDS: ESCITALOPRAM OXALATE (10 MG) 10 MG TABLET NG SCH (08:59)
[2021-12-12] MEDS: VIT B CMPLX 3/FA/VIT C/BIOTIN 1 TAB TABLET NG SCH (08:59)
[2021-12-12] MEDS: ASCORBIC ACID 500 MG TABLET NG SCH (09:00)
[2021-12-12] MEDS: CARVEDILOL 6.25 MG TABLET NG SCH ×2 (09:00→17:35)
[2021-12-12] MEDS: NIFEdipine XL (30MG) 30 MG TAB PO SCH ×2 (09:00→17:35)
[2021-12-12] MEDS: LEVOTHYROXINE SODIUM 88 MCG TABLET NG SCH (09:00)
[2021-12-12] MEDS: METOPROLOL TARTRATE 25 MG TABLET NG SCH ×2 (09:01→17:35)
[2021-12-12] MEDS: glipiZIDE 5 MG TABLET NG SCH ×2 (09:01→17:36)
[2021-12-12] MEDS: LOSARTAN POTASSIUM 50 MG TABLET NG SCH ×2 (09:01→17:35)
[2021-12-12] MEDS: RIVAROXABAN 10 MG TABLET NG SCH (09:03)
[2021-12-12] MEDS: ZINC OXIDE 56.7 GM TUBE TP SCH (09:04)
[2021-12-12] MEDS: PROSOURCE / PROSTAT (PYXIS) 30 ML UDC GT SCH (09:04)
[2021-12-12 09:05] LABS: CALCIUM, SERUM 8.7 mg/dL (8.5-10.1); CARBON DIOXIDE 26 mmol/L (21-32); CHLORIDE 97 mmol/L (98-107); CREATININE 2.8 mg/dL (0.6-1.3); GLUCOSE 194 mg/dL (74-106); PHOSPHORUS 1.8 mg/dL (2.5-4.9); POTASSIUM 3.4 mmol/L (3.5-5.1); SODIUM SERUM 132 mmol/L (136-145); UREA NITROGEN, BLOOD 29 mg/dL (7-18)
[2021-12-12 12:00] VITALS: BP 98/45
[2021-12-12 15:24] LABS: LYMPHOCYTES % (MANUAL) 16 % (16-48); NEUTROPHILS % (MANUAL) 72 (42-76)
[2021-12-12 15:25] LABS: EOSINOPHILS % (MANUAL) 2 % (0-4); MONOCYTES % (MANUAL) 10 % (0-11.0)
[2021-12-12 16:00] VITALS: BP 140/62
--- NOTE | 2021-12-12 18:48 | NUR ---
SOLAR ELECTRIC PRACTITIONER CLOSING NOTE RECEIVED PATIENT IN BED, A/NON-VERBAL. PATIENT WITH T-PIECE ON OXYGEN 2L/MIN WITH EVEN AND UNLABORED BREATHING. NO RESPIRATORY DISTRESS NOTED AT THIS TIME. PATIENT ON TELE MONITOR READS SR. WITH PAULA MIDLINE IV ACCESS SL. GT NOTED TO BE RUNNING NEPRO @45ML/HR. SAFETY MEASURES IN PLACE WITH BED IN LOW AND LOCKED, HOB ELEVATED IN SEMI FOWLERS, SIDE RIALS UP X2, SUSAN LIGHT WITHIN REACH. ALARMS ON AND SAFETY MEASURES IN PLACE. WILL ENDORSE TO NIGHT NURSE FOR SALVATORE.
--- NOTE | 2021-12-12 19:59 | NUR ---
RN OPENING NOTES RECEIVED CARE OF PATIENT WHILE PATIENT IN BED, A/O X2, NON-VERBAL, ABLE TO COMMUNICATE THROUGH FACIAL EXPRESSIONS. PATIENT WITH T-PIECE ON OXYGEN, WITH EVEN AND UNLABORED BREATHING, SMALL AMOUNTS OF SECRETIONS OBSERVED UPON SUCTIONING. NO RESPIRATORY DISTRESS NOTED AT THIS TIME. JASE MIDLINE IV ACCESS SL. GT NOTED TO BE RUNNING NEPRO @45ML/HR. SAFETY MEASURES IN PLACE WITH BED IN LOW AND LOCKED, HOB ELEVATED IN SEMI FOWLERS, SIDE RIALS UP X2, CALL LIGHT WITHIN REACH. ALARMS ON AND SAFETY MEASURES IN PLACE. ALL APPROPRIATE ISOLATION PRECAUTIONS PUT IN PLACE. WILL CONTINUE TO MONITOR.
[2021-12-12 20:00] VITALS: BP 117/47
[2021-12-12] MEDS: CEFEPIME 1 GM in IV D5W 50 ML IV SCH (20:28)
[2021-12-12] MEDS: DOCUSATE SODIUM LIQ 100 MG/10 ML UDC NG SCH (21:30)
[2021-12-12] MEDS: OLANZAPINE 2.5 MG TABLET NG SCH (21:30)
--- NOTE | 2021-12-12 21:31 | NUR ---
RN NOTES PATIENT NOTED WITH DIARRHEA, TWO LOOSE BOWEL MOVEMENTS SINCE START OF THE SHIFT. WILL HOLD SCHEDULED DOCUSATE 200MG ADMINISTRATION. WILL CONTINUE TO MONITOR PATIENT.
[2021-12-12] MEDS: INSULIN GLARGINE, 100 UNIT/ML CARTRIDGE SQ SCH (21:48)
[2021-12-13] VITALS: BP 149/66
[2021-12-13 04:00] VITALS: BP 145/52
--- NOTE | 2021-12-13 06:55 | NUR ---
RN CLOSING NOTES WILL ENDORSE CARE OF PATIENT WHILE PATIEN IN BED, ASLEEP BUT WAKES TO NAME. PATIENT IN STABLE CONDITIONS AT THIS TIME, ON TELE MONITOR SR AT THIS TIME WITH HR IN 80S. PATIENT WITH T-PIECE ON OXYGEN, WITH EVEN AND UNLABORED BREATHING, SMALL AMOUNTS OF SECRETIONS OBSERVED UPON SUCTIONING, NO RESPIRATORY DISTRESS NOTED AT THIS TIME, O2 SAT 97%. ALL PATIENT NEEDS ATTENDED TO, ALL DUE MEDS GIVEN. NO SIGNIFICANT FINDINGS UPON ALL NURSING ASSESSMENTS. ALL APPROPRIATE ISOLATION PRECAUTIONS PUT IN PLACE. ALL SAFETY PRECAUTIONS FOLLOWED THROUGHOUT SHIFT. WILL ENDORSE TO AM NURSE FOR SALVATORE.
--- NOTE | 2021-12-13 07:34 | NUR ---
o2 flow decreased from 3 lpm to 2 lpm via t-piece due to 100% spo2. Addendum: 12/13/21 at 0735 by ALIX KELLEY RT Amended: Links added.
[2021-12-13 08:00] VITALS: BP 155/57
[2021-12-13] MEDS: LEVOTHYROXINE SODIUM 88 MCG TABLET NG SCH (08:07)
[2021-12-13] MEDS: SEVELAMER CARBONATE 800 MG POWD.PACK NG SCH ×2 (08:07→14:26)
[2021-12-13] MEDS: POLYETHYLENE GLYCOL 3350 17 GM POWD.PACK NG SCH (08:47)
[2021-12-13] MEDS: VIT B CMPLX 3/FA/VIT C/BIOTIN 1 TAB TABLET NG SCH (08:48)
[2021-12-13] MEDS: PANTOPRAZOLE 40 MG/PACK PACK NG SCH (08:48)
[2021-12-13] MEDS: ASPIRIN 81 MG TAB.CHEW NG SCH (08:48)
[2021-12-13] MEDS: LOSARTAN POTASSIUM 50 MG TABLET NG SCH (08:48)
[2021-12-13] MEDS: CHLORHEXIDINE GLUCONATE 15 ML UDC MM SCH (08:48)
[2021-12-13] MEDS: ASCORBIC ACID 500 MG TABLET NG SCH (08:48)
[2021-12-13] MEDS: RIVAROXABAN 10 MG TABLET NG SCH (08:49)
[2021-12-13] MEDS: ESCITALOPRAM OXALATE (10 MG) 10 MG TABLET NG SCH (08:52)
[2021-12-13] MEDS: METOPROLOL TARTRATE 25 MG TABLET NG SCH (08:52)
[2021-12-13] MEDS: NIFEdipine XL (30MG) 30 MG TAB PO SCH (08:52)
[2021-12-13] MEDS: CARVEDILOL 6.25 MG TABLET NG SCH (08:53)
[2021-12-13] MEDS: DAPTOMYCIN 500 MG in IV NS 0.9% 50 ML IV SCH (08:53)
[2021-12-13] MEDS: ZINC OXIDE 56.7 GM TUBE TP SCH (08:54)
[2021-12-13] MEDS: PROSOURCE / PROSTAT (PYXIS) 30 ML UDC GT SCH (08:54)
[2021-12-13] MEDS: glipiZIDE 5 MG TABLET NG SCH (09:01)
[2021-12-13 09:25] LABS: BASOPHILS # (AUTO) 0.1 K/uL (0.0-0.2); BASOPHILS % (AUTO) 0.9 % (0.0-2.0); EOSINOPHILS % (AUTO) 1.5 % (0.0-6.0); HEMATOCRIT 23 % (33-45); HEMOGLOBIN 7.5 g/dL (11.5-14.8); LYMPHOCYTES # (AUTO) 2.1 K/uL (0.8-4.8); LYMPHOCYTES % (AUTO) 14.7 % (20.0-44.0); MEAN CORPUSCULAR HGB CONC 32 g/dl (31.0-36.0); MEAN CORPUSCULAR VOLUME 98 fL (82-100); MONOCYTES # (AUTO) 1.6 K/uL (0.1-1.30); MONOCYTES % (AUTO) 11.6 % (2.0-12.0); NEUTROPHILS # (AUTO) 9.9 K/uL (1.8-8.9); NEUTROPHILS % (AUTO) 71.3 % (43.0-81.0); PLATELET COUNT (AUTO) 410 K/uL (150-450); RED BLOOD CELL COUNT(AUTO) 2.38 MIL/uL (4.0-5.2); WHITE BLOOD COUNT (AUTO) 13.9 K/uL (4.3-11.0)
[2021-12-13 10:01] LABS: CALCIUM, SERUM 9.7 mg/dL (8.5-10.1); CARBON DIOXIDE 26 mmol/L (21-32); CHLORIDE 96 mmol/L (98-107); CREATININE 3.7 mg/dL (0.6-1.3); GLUCOSE 172 mg/dL (74-106); PHOSPHORUS 2.6 mg/dL (2.5-4.9); POTASSIUM 3.7 mmol/L (3.5-5.1); SODIUM SERUM 131 mmol/L (136-145); UREA NITROGEN, BLOOD 48 mg/dL (7-18)
--- NOTE | 2021-12-13 10:11 | NUR ---
RN OPENING NOTES RECEIVED CARE OF PATIENT WHILE PATIENT IN BED, A/O X1, NON-VERBAL, ABLE TO COMMUNICATE THROUGH FACIAL EXPRESSIONS. PATIENT WITH T-PIECE ON OXYGEN, WITH EVEN AND UNLABORED BREATHING, SMALL AMOUNTS OF SECRETIONS OBSERVED UPON SUCTIONING. NO RESPIRATORY DISTRESS NOTED AT THIS TIME. PAULA MIDLINE IV ACCESS SL. GT NOTED TO BE RUNNING NEPRO @45ML/HR. SAFETY MEASURES IN PLACE WITH BED IN LOW AND LOCKED, HOB ELEVATED IN SEMI FOWLERS, SIDE RIALS UP X2, CALL LIGHT WITHIN REACH. ALARMS ON AND SAFETY MEASURES IN PLACE. ALL APPROPRIATE ISOLATION PRECAUTIONS PUT IN PLACE. WILL CONTINUE TO MONITOR.
--- NOTE | 2021-12-13 10:19 | NUR ---
RN NOTES HELD DOSE OF XARELTO DUE TO PT HGB 7.1
--- NOTE | 2021-12-13 10:28 | NUR ---
PER [facility] COVID NEGATIVE NOTIFIED.
[2021-12-13] MEDS: ALBUMIN 25% 25 GM in PREMIX 1 EA IV PRN (11:04)
[2021-12-13 12:00] VITALS: BP 108/62
[2021-12-13] MEDS ORDERED: CEFE1FRO IV (12:45)
--- NOTE | 2021-12-13 16:20 | NUR ---
DC NOTES PT DC'S TO [facility] IN STABLE CONDITION. DC INSTRUCTIONS GIVEN AND EXPLAINED TO PT. VERBALIZED UNDERSTANDING. ALL PAPERWORK SIGNED AND COMPLETED. ALL BELONGINGS SENT. NO COMPLICATIONS NOTED, REPORT CALLED TO JAM AT [facility]. PT LEFT UNIT IN STABLE CONDITION VIA GURNEY. PT ENDORSED TO AMBULANCE CREW ACCORDINGLY .
== END 2021-12-13 15:51 | DRG 871 ==
LOC: ER 15:53 → TRANSITION 12-07 01:04 → TELE1 12-07 21:37
PROVIDERS: ADMIT Family Medicine; ATTEND Registered Nurse
PROC: 5A1D70Z Performance of Urinary Filtration, Intermittent, Less than 6 Hours Per Day (ICD-10-PCS; principal; 2021-12-07)
PROC: 05HC33Z Insertion of Infusion Device into Left Basilic Vein, Percutaneous Approach (ICD-10-PCS; 2021-12-10)
DX: A41.9 Sepsis, unspecified organism (principal); J15.9 Unspecified bacterial pneumonia; N18.6 End stage renal disease; J96.20 Acute and chronic respiratory failure, unspecified whether with hypoxia or hypercapnia; E43 Unspecified severe protein-calorie malnutrition; R65.21 Severe sepsis with septic shock; I13.2 Hypertensive heart and chronic kidney disease with heart failure and with stage 5 chronic kidney disease, or end stage renal disease; G93.49 Other encephalopathy; J90 Pleural effusion, not elsewhere classified; I50.9 Heart failure, unspecified; Z20.822 Contact with and (suspected) exposure to COVID-19; E11.22 Type 2 diabetes mellitus with diabetic chronic kidney disease; Z99.2 Dependence on renal dialysis; Z93.0 Tracheostomy status; Z93.1 Gastrostomy status; Z88.1 Allergy status to other antibiotic agents; Z88.5 Allergy status to narcotic agent; Z88.2 Allergy status to sulfonamides; Z88.8 Allergy status to other drugs, medicaments and biological substances; Z79.4 Long term (current) use of insulin; Z79.51 Long term (current) use of inhaled steroids; Z79.01 Long term (current) use of anticoagulants; Z79.899 Other long term (current) drug therapy; Z79.84 Long term (current) use of oral hypoglycemic drugs; Z79.82 Long term (current) use of aspirin; J44.9 Chronic obstructive pulmonary disease, unspecified; E11.65 Type 2 diabetes mellitus with hyperglycemia; R13.10 Dysphagia, unspecified; Z86.14 Personal history of Methicillin resistant Staphylococcus aureus infection; Z86.73 Personal history of transient ischemic attack (TIA), and cerebral infarction without residual deficits; E78.5 Hyperlipidemia, unspecified; E03.9 Hypothyroidism, unspecified; D63.1 Anemia in chronic kidney disease; M89.9 Disorder of bone, unspecified; Y95 Nosocomial condition
CPT/HCPCS: 31720; 36415; 71045-TC; 80048-TC; 80076-TC; 82550-TC; 82962-TC; 83735-TC; 83880; 84100-TC; 84484-TC; 85025-TC; 85730-TC; 86706; 87040-TC; 87070-TC; 87081-TC; 87186-TC; 87340; 90935-TC; 94640-TC; 94799-TC; A4216; A4623; C9803; G0378; J0692; J0878; J0885; J1815; J2405; J3370; J7030; J7050; J7060; P9047; U0003

== ENCOUNTER 2021-12-15 16:44 | Emergency (ER) | payer MEDICARE, OTHER ==
[~2021-12-15] VITALS: Ht 165.1 cm; Wt 69.9 kg
[~2021-12-15 16:44] MED LIST changes: +CEFE1FRO IV
--- NOTE | 2021-12-15 16:50 | NUR ---
[facility] f[facility] dialysis center for g tube replacement. dislodge yesterday. pt finished dialysis today. GTUBE IN PLACE FOR GTUBE ON LLQ; GTUBE SITE PATENT. PT T-PIECE SATTING AT 100%. PT AWAKE. PT IN NO DISTRESS AT THIS TIME. VSS. SAFETY MEASURES IN PLACE.
--- NOTE | 2021-12-15 18:00 | NUR ---
GTUBE INSERTED BY DR CEDENO; PATENT AND INTACT.
--- NOTE | 2021-12-15 18:00 | NUR ---
PT TOLERATED PROCEDURE WELL.
[2021-12-15] MEDS ORDERED: DIATR MEGLU/DIATRIZOATE SODIUM 30 ML BOTTLE (GASTROGRAPHIN) ONE (18:02)
[2021-12-15 18:13] VITALS: BP 128/54
--- NOTE | 2021-12-15 18:14 | NUR ---
SHIFTMAN PT'S BEDSIDE
--- NOTE | 2021-12-15 18:17 | NUR ---
CALLED [facility] AND SET UP BLS TRANSPORT BACK TO FACILITY ETA [phone]
--- NOTE | 2021-12-15 19:20 | NUR ---
REPORT GIVEN TO [facility] FOR PT TO DC TO SNF. Patient discharged to SNF in stable condition. Written and verbal after care instructions given. Patient verbalizes understanding of instruction.
== END 2021-12-15 19:20 ==
LOC: ER 16:52
DX: K94.23 Gastrostomy malfunction (principal); I12.0 Hypertensive chronic kidney disease with stage 5 chronic kidney disease or end stage renal disease; E11.22 Type 2 diabetes mellitus with diabetic chronic kidney disease; N18.6 End stage renal disease; Z99.2 Dependence on renal dialysis; J44.9 Chronic obstructive pulmonary disease, unspecified; Z88.6 Allergy status to analgesic agent; Z88.2 Allergy status to sulfonamides; Z88.8 Allergy status to other drugs, medicaments and biological substances; Z88.1 Allergy status to other antibiotic agents; Z79.899 Other long term (current) drug therapy; Z79.4 Long term (current) use of insulin
CPT/HCPCS: 43762; 74018; 99284; Q9963

== ENCOUNTER 2021-12-25 11:56 | Inpatient (IN) | payer MEDICARE, OTHER ==
[~2021-12-25] VITALS: Ht 162.6 cm; Wt 74.4 kg
[~2021-12-25 11:56] MED LIST changes: +AMIN30LI2 GT; -AMIN30LI2 PO; +ASCO-352 GT; -ASCO-352 PO; +CARV6.252 GT; -CARV6.252 PO; +DOCU-141 GT; -DOCU-141 PO; +ESCI10TA GT; -ESCI10TA PO; +FOLI0.8T2 GT; -FOLI0.8T2 PO; +GLIP5TAB13 GT; -GLIP5TAB13 PO; +LEVO88TA5 GT; -LEVO88TA5 PO; +LOSA50TA39 GT; -LOSA50TA39 PO; +NIFE-35 GT; -NIFE-35 PO; +OLAN2.5T3 GT; -OLAN2.5T3 PO; +POLY17PO4 GT; -POLY17PO4 PO; +RIVA10TA GT; -RIVA10TA PO
--- NOTE | 2021-12-25 12:12 | NUR ---
[facility] LOW HGB 6.6 OF 12/23/21. THE PATIENT IS ALERT AND ORIENTED TO HER NAME. GT PRESENT. LEFT UPPER CHEST HD CATH PRESENT. THE PATIENT IS TRACH AND VENT DEPENDENT. ATTACHED TO THE MONITOR. WARM BLANKET PROVIDED FOR COMFORT. WILL CONTINUE TO MONITOR THE PATIENT.
--- NOTE | 2021-12-25 12:14 | NUR ---
EKG BEING TAKEN AT BEDSIDE
--- NOTE | 2021-12-25 12:28 | NUR ---
BLOOD SPECIMEN COLLECTED AND SENT TO THE LAB
[2021-12-25] MEDS ORDERED: NUT.237L67 GT (12:29)
[2021-12-25] MEDS ORDERED: SEVE0.8P3 GT (12:29)
[2021-12-25] MEDS ORDERED: INSU100V7 SQ (12:29)
[2021-12-25] MEDS ORDERED: ACET-868 GT (12:29)
[2021-12-25] MEDS ORDERED: ASPI-1169 GT (12:29)
[2021-12-25] MEDS ORDERED: ZINC1CAP3 GT (12:29)
[2021-12-25] MEDS ORDERED: METO25TA20 GT (12:29)
[2021-12-25] MEDS ORDERED: OMEP40CA21 GT (12:29)
[2021-12-25 12:58] LABS: BASOPHILS # (AUTO) 0.1 K/uL (0.0-0.2); BASOPHILS % (AUTO) 0.7 % (0.0-2.0); EOSINOPHILS % (AUTO) 8.3 % (0.0-6.0); HEMATOCRIT 22 % (33-45); LYMPHOCYTES # (AUTO) 2.5 K/uL (0.8-4.8); LYMPHOCYTES % (AUTO) 16.6 % (20.0-44.0); MEAN CORPUSCULAR HGB CONC 32 g/dl (31.0-36.0); MEAN CORPUSCULAR VOLUME 98 fL (82-100); MONOCYTES # (AUTO) 0.9 K/uL (0.1-1.30); MONOCYTES % (AUTO) 5.9 % (2.0-12.0); NEUTROPHILS # (AUTO) 10.4 K/uL (1.8-8.9); NEUTROPHILS % (AUTO) 68.5 % (43.0-81.0); PLATELET COUNT (AUTO) 513 K/uL (150-450); RED BLOOD CELL COUNT(AUTO) 2.22 MIL/uL (4.0-5.2); WHITE BLOOD COUNT (AUTO) 15.2 K/uL (4.3-11.0)
--- NOTE | 2021-12-25 13:15 | NUR ---
BARBER APPRENTICE AT THE BEDSIDE
[2021-12-25 13:46] LABS: ALANINE AMINOTRANSFERASE 12 U/L (12-78); ALKALINE PHOSPHATASE 157 U/L (46-116); ASPARTATE AMINOTRANSFERASE 39 U/L (15-37); BILIRUBIN,DIRECT 0.1 mg/dL (0.0-0.2); BILIRUBIN,TOTAL 0.3 mg/dL (0.2-1.0); CALCIUM, SERUM 10.2 mg/dL (8.5-10.1); CARBON DIOXIDE 26 mmol/L (21-32); CHLORIDE 97 mmol/L (98-107); CREATININE 4.3 mg/dL (0.6-1.3); GLUCOSE 137 mg/dL (74-106); SODIUM SERUM 130 mmol/L (136-145); TOTAL PROTEIN, SERUM 7.1 g/dL (6.4-8.2)
[2021-12-25 13:49] LABS: UREA NITROGEN, BLOOD 86 mg/dL (7-18)
--- NOTE | 2021-12-25 13:50 | NUR ---
CALLED NURSING SUP REGARDING PT BED
[2021-12-25] MEDS ORDERED: NEPRO VAN 237 ML CAN GT PRN (14:00)
[2021-12-25] MEDS ORDERED: VANCOMYCIN 1 GM in IV D5W 250 ML IV ONE (14:00)
[2021-12-25] MEDS: PIPERACILLIN /TAZOBACTAM 2.25 G in IV D5W 50 ML IV SCH (14:09)
--- NOTE | 2021-12-25 14:18 | NUR ---
ROOM 120-1
[2021-12-25] MEDS ORDERED: MORPHINE SULFATE INJ 2 MG/ML DISP.SYRIN IV PRN (14:30)
[2021-12-25] MEDS ORDERED: HYDROCODONE/APAP 5/325MG TABLET GT PRN (14:30)
[2021-12-25] MEDS ORDERED: Z GUARD REMEDY 4 OZ OINT TP PRN (14:30)
[2021-12-25] MEDS ORDERED: ONDANSETRON HCL/PF 4 MG/2 ML VIAL IVP PRN (14:30)
[2021-12-25] MEDS ORDERED: DEXTROSE 50%-WATER 50 ML DISP.SYRIN IV PRN (14:30)
--- NOTE | 2021-12-25 14:42 | NUR ---
REPORT GIVEN TO NURSE BUSH FOR SALVATORE
[2021-12-25] MEDS ORDERED: EPOETIN ALFA (10,000 UNIT) 10,000 UNIT/ML VIAL SQ SCH (15:00)
--- NOTE | 2021-12-25 15:58 | NUR ---
THE PATIENT IS TRANSFERED TO [facility] IN STABLE CONDITION AND PER ACLS POLICY
[2021-12-25 16:02] LABS: BAND % (MANUAL) 3 % (0.0-5.0); EOSINOPHILS % (MANUAL) 4 % (0-4); LYMPHOCYTES % (MANUAL) 21 % (16-48); METAMYELOCYTES % 1 % (0-0); MONOCYTES % (MANUAL) 7 % (0-11.0); NEUTROPHILS % (MANUAL) 62 (42-76)
[2021-12-25 16:03] LABS: MYELOCYTES % 2 % (0-0)
--- NOTE | 2021-12-25 16:20 | NUR ---
RN NOTE RECEIVED PATIENT FROM ER [facility] WITH THORACOSTOMY WITH MECHANICAL VENTILATOR, BODY ASSESSMENT DONE. WILL CONTINUE PLAN OF CARE.
[2021-12-25] MEDS: EPOETIN ALFA-EPBX 10,000 UNIT/ML VIAL SQ SCH (16:28)
[2021-12-25] MEDS ORDERED: ACETAMINOPHEN 650 MG/20.3 ML UDC GT PRN (16:30)
[2021-12-25] MEDS: ASPIRIN 81 MG TAB.CHEW GT SCH (17:11)
[2021-12-25] MEDS: SEVELAMER CARBONATE 800 MG POWD.PACK GT SCH (17:11)
[2021-12-25] MEDS: CARVEDILOL 6.25 MG TABLET GT SCH (17:12)
[2021-12-25] MEDS: LOSARTAN POTASSIUM 50 MG TABLET GT SCH (17:12)
[2021-12-25] MEDS: INSULIN REGULAR, HUMAN 100 UNIT/ML 3 ML VIAL SQ PRN (17:17)
[2021-12-25] MEDS: BLOOD SUGAR DIAGNOSTIC 1 EACH STRIP IN SCH ×2 (17:17→23:57)
[2021-12-25] MEDS ORDERED: ALBUTEROL SULFATE 8 GM HFA.AER.AD IH PRN (18:30)
--- NOTE | 2021-12-25 18:47 | NUR ---
RN NOTE PATIENT OBSERVED AWAKE IN BED, ALERT AND ORIENTED X3 ABLE TO VERBALIZE NEEDS MOUTHING WORDS, ON TRACHEOSTOMY WITH MECHANICAL VENTILATOR TOLERATING WELL O2 SAT OF 98%, WITH LEFT UPPER UPPER CHEST HD CATHETER, WITH RIGHT ARM IV SITE PATENT INFUSING WELL, ON IV ATB NO ASE NOTED, MONITOR H AND H, PATIENT WITH G-TUBE PATENT UPON SAFETY MEASURES OBSERVED, BED WHEELS LOCK, CALL LIGHT WITHIN REACH, WILL ENDORSE TO NOC SHIFT. Addendum: 12/25/21 at 1904 by ELEAZAR SHERIFF RN RN NOTE PATIENT OBSERVED AWAKE IN BED, ALERT AND ORIENTED X3 ABLE TO VERBALIZE NEEDS MOUTHING WORDS, ON TRACHEOSTOMY WITH MECHANICAL VENTILATOR TOLERATING WELL O2 SAT OF 98%, WITH LEFT UPPER UPPER CHEST HD CATHETER, WITH RIGHT ARM IV SITE PATENT INFUSING WELL, ON IV ATB NO ASE NOTED, MONITOR H AND H, PATIENT WITH G-TUBE PATENT UPON ASSESSMENT, ON NEPHRO 70CC X 16 HRS, NO TUBE FEEDING YET FOLLOWED UP WITH DIETARY SAFETY MEASURES OBSERVED, BED WHEELS LOCK, CALL LIGHT WITHIN REACH, WILL ENDORSE TO NOC SHIFT.
[2021-12-25] MEDS: NEPRO 1,000 ML BOTTLE GT PRN (19:13)
[2021-12-25 20:00] VITALS: BP_SYST 181; BP_SYST 184; BP_DIAS 66; BP_DIAS 77
[2021-12-25] MEDS: INSULIN GLARGINE, 100 UNIT/ML CARTRIDGE SQ SCH (22:00)
--- NOTE | 2021-12-25 22:00 | NUR ---
RN NOTE INSULIN ESE HELD - BS 72 , CHARGE NURSE AWARE, WILL CONTINUE TO MONITOR.
[2021-12-25] MEDS: OLANZAPINE 2.5 MG TABLET GT SCH (23:35)
[2021-12-25] MEDS: DOCUSATE SODIUM LIQ 100 MG/10 ML UDC GT SCH (23:35)
[2021-12-25] MEDS: METOPROLOL TARTRATE 25 MG TABLET GT SCH (23:37)
[2021-12-26] VITALS (7 sets, daily range): BP systolic 124–177; BP diastolic 60–92
[2021-12-26] MEDS: PIPERACILLIN /TAZOBACTAM 2.25 G in IV D5W 50 ML IV SCH ×4 (00:43→20:32)
[2021-12-26] MEDS: CHLORHEXIDINE GLUCONATE 15 ML UDC MM SCH ×3 (00:44→20:33)
--- NOTE | 2021-12-26 00:47 | NUR ---
RN NOTE PAGED DR. CANTOR FOR PATIENT HIGH BP.
--- NOTE | 2021-12-26 01:15 | NUR ---
RN NOTE DR. CANTOR ORDERED CATAPRES 0.1MG Q8 , FOR SBP >160 . WILL FOLLOW THROUGH WITH ORDERS.
[2021-12-26] MEDS: CLONIDINE HCL 0.1 MG TABLET GT PRN (01:27)
--- NOTE | 2021-12-26 02:00 | NUR ---
RN NOTE RE ASSESSED PT BP AT 160/80. PATIENT BLOOD PRESSURE DECREASED.
[2021-12-26] MEDS ORDERED: PIPERACILLIN /TAZOBACTAM 2.25 G VIAL IV ONE ×2 (05:07)
[2021-12-26 06:38] LABS: BASOPHILS # (AUTO) 0.1 K/uL (0.0-0.2); BASOPHILS % (AUTO) 0.8 % (0.0-2.0); EOSINOPHILS % (AUTO) 9.2 % (0.0-6.0); LYMPHOCYTES # (AUTO) 2.1 K/uL (0.8-4.8); LYMPHOCYTES % (AUTO) 17.3 % (20.0-44.0); MEAN CORPUSCULAR HGB CONC 33 g/dl (31.0-36.0); MEAN CORPUSCULAR VOLUME 97 fL (82-100); MONOCYTES # (AUTO) 0.6 K/uL (0.1-1.30); MONOCYTES % (AUTO) 5.2 % (2.0-12.0); NEUTROPHILS # (AUTO) 8.1 K/uL (1.8-8.9); NEUTROPHILS % (AUTO) 67.5 % (43.0-81.0); PLATELET COUNT (AUTO) 449 K/uL (150-450); WHITE BLOOD COUNT (AUTO) 12.1 K/uL (4.3-11.0)
[2021-12-26] MEDS: BLOOD SUGAR DIAGNOSTIC 1 EACH STRIP IN SCH ×4 (06:45→23:30)
[2021-12-26 07:18] LABS: CALCIUM, SERUM 10.4 mg/dL (8.5-10.1); CARBON DIOXIDE 23 mmol/L (21-32); CHLORIDE 95 mmol/L (98-107); CREATININE 4.7 mg/dL (0.6-1.3); GLUCOSE 88 mg/dL (74-106); MAGNESIUM 3.2 mg/dL (1.8-2.4); POTASSIUM 4.2 mmol/L (3.5-5.1); SODIUM SERUM 130 mmol/L (136-145)
--- NOTE | 2021-12-26 07:23 | NUR ---
RN OPENING NOTE RECEIVED PATIENT RESTING IN BED, ALERT AND ORIENTED X3 ABLE TO VERBALIZE NEEDS MOUTHING WORDS, NO CURRENT COMPLAINTS OF PAIN OR SOB. ON TRACHEOSTOMY WITH MECHANICAL VENTILATOR TOLERATING WELL O2 SAT OF 98%, WITH LEFT UPPER UPPER CHEST HD CATHETER, WITH RIGHT ARM IV SITE PATENT INFUSING WELL, PATIENT WITH G-TUBE PATENT UPON SAFETY MEASURES OBSERVED, BED WHEELS LOCK, CALL LIGHT WITHIN REACH.
[2021-12-26 08:03] LABS: RED BLOOD CELL COUNT(AUTO) 1.95 MIL/uL (4.0-5.2)
[2021-12-26 08:05] LABS: HEMOGLOBIN 6.2 g/dL (11.5-14.8)
[2021-12-26 08:06] LABS: HEMATOCRIT 19 % (33-45)
--- NOTE | 2021-12-26 08:13 | NUR ---
RN NOTE RECEIVED CRITICAL LAB VALUE OF HGB 6.2 AND HCT 19. CALL DOCTOR DERDARIAN PER PROVIDER ORDER ONE UNIT OF BLOOD. WILL PLACE ORDER
[2021-12-26] MEDS: AMLODIPINE BESYLATE 5 MG TABLET NG SCH (09:00)
[2021-12-26] MEDS: METOPROLOL TARTRATE 25 MG TABLET GT SCH ×2 (09:00→20:44)
[2021-12-26] MEDS: CARVEDILOL 6.25 MG TABLET GT SCH ×2 (09:00→17:44)
[2021-12-26] MEDS: LOSARTAN POTASSIUM 50 MG TABLET GT SCH ×2 (09:00→17:44)
--- NOTE | 2021-12-26 09:00 | NUR ---
RN NOTE PATIENTS 9AM BLOOD PRESSURE MEDICATION (CARVEDILOL, LOSARTAN, NORVASC) NOT ADMINISTERED DUE TO PATIENT HAVING DIALYSIS DONE AT THE CURRENT MOMENT.
[2021-12-26 09:45] LABS: UREA NITROGEN, BLOOD 95 mg/dL (7-18)
[2021-12-26] MEDS: SEVELAMER CARBONATE 800 MG POWD.PACK GT SCH ×3 (09:46→17:44)
[2021-12-26] MEDS: ASPIRIN 81 MG TAB.CHEW GT SCH ×2 (09:46→17:44)
[2021-12-26] MEDS: POLYETHYLENE GLYCOL 3350 17 GM POWD.PACK GT SCH (09:46)
[2021-12-26] MEDS: PROSOURCE / PROSTAT (PYXIS) 30 ML UDC GT SCH (09:46)
[2021-12-26] MEDS: PANTOPRAZOLE 40 MG/PACK PACK NG SCH (09:46)
[2021-12-26] MEDS: ZINC SULFATE 220 MG CAPSULE GT SCH (09:46)
[2021-12-26] MEDS: ESCITALOPRAM OXALATE (10 MG) 10 MG TABLET GT SCH (09:46)
[2021-12-26] MEDS: VIT B CMPLX 3/FA/VIT C/BIOTIN 1 TAB TABLET GT SCH (09:46)
[2021-12-26] MEDS: ASCORBIC ACID 500 MG TABLET GT SCH (09:46)
[2021-12-26] MEDS: LEVOTHYROXINE SODIUM 88 MCG TABLET GT SCH (09:48)
[2021-12-26] MEDS: ZINC OXIDE 56.7 GM TUBE TP SCH (10:03)
--- NOTE | 2021-12-26 10:40 | NUR ---
RN NOTE RECEIVED CRITICAL LAB RESULT REGARDING PATIENTS BUN RESULTS OF 95. PATIENT IS CURRENTLY HAVING HD, DIALYSIS NURSE MADE AWARE.
--- NOTE | 2021-12-26 12:07 | NUR ---
RN NOTE PATIENTS BLOOD TRANSFUSION HAS BEEN COMPLETED, PATIENT RECEIVED TRANSFUSION THROUGH HD CATHETER DUE TO PATIENT CURRENTLY HAVING DIALYSIS DONE.
[2021-12-26] MEDS ORDERED: RIVAROXABAN 10 MG TABLET GT SCH (17:00)
[2021-12-26 17:27] LABS: BAND % (MANUAL) 1 % (0.0-5.0); EOSINOPHILS % (MANUAL) 7 % (0-4); LYMPHOCYTES % (MANUAL) 26 % (16-48); METAMYELOCYTES % 1 % (0-0); MONOCYTES % (MANUAL) 4 % (0-11.0); MYELOCYTES % 2 % (0-0); NEUTROPHILS % (MANUAL) 59 (42-76)
[2021-12-26] MEDS: INSULIN REGULAR, HUMAN 100 UNIT/ML 3 ML VIAL SQ PRN ×2 (17:54→23:33)
[2021-12-26] MEDS: NEPRO 1,000 ML BOTTLE GT PRN (18:19)
--- NOTE | 2021-12-26 19:02 | NUR ---
RN CLOSING NOTE PATIENT RESTING IN BED, ALERT AND ORIENTED X3 ABLE TO VERBALIZE NEEDS MOUTHING WORDS, NO CURRENT COMPLAINTS OF PAIN OR SOB. ON TRACHEOSTOMY WITH MECHANICAL VENTILATOR TOLERATING WELL O2 SAT OF 98%, WITH LEFT UPPER UPPER CHEST HD CATHETER, WITH RIGHT ARM IV SITE PATENT INFUSING WELL, PATIENT WITH G-TUBE PATENT RUNNING 70/MLS HR. SAFETY MEASURES OBSERVED, BED WHEELS LOCK, CALL LIGHT WITHIN REACH.WILL ENDORSE TO NIGHT NURSE FOR SALVATORE.
[2021-12-26] MEDS: DOCUSATE SODIUM LIQ 100 MG/10 ML UDC GT SCH (21:01)
[2021-12-26] MEDS: OLANZAPINE 2.5 MG TABLET GT SCH (21:01)
[2021-12-26] MEDS: INSULIN GLARGINE, 100 UNIT/ML CARTRIDGE SQ SCH (22:21)
[2021-12-27] VITALS (12 sets, daily range): BP systolic 94–182; BP diastolic 42–86
[2021-12-27] MEDS: PIPERACILLIN /TAZOBACTAM 2.25 G in IV D5W 50 ML IV SCH ×3 (04:18→21:42)
[2021-12-27] MEDS: CLONIDINE HCL 0.1 MG TABLET GT PRN (04:21)
--- NOTE | 2021-12-27 05:00 | NUR ---
STOOL COLLECTED AND SEND IT TO LAB.
[2021-12-27] MEDS: BLOOD SUGAR DIAGNOSTIC 1 EACH STRIP IN SCH ×4 (05:22→23:14)
[2021-12-27] MEDS: INSULIN REGULAR, HUMAN 100 UNIT/ML 3 ML VIAL SQ PRN ×3 (05:24→23:16)
[2021-12-27 05:54] LABS: OCCULT BLOOD STOOL POSITIVE (NEGATIVE)
--- NOTE | 2021-12-27 06:28 | NUR ---
RN CLOSING NOTE PATIENT IN BED, ASLEEP, AROUSES TO VERBAL STIMULI, ON MECHANICAL VENTILATOR TOLERATING SETTINGS WELL, NO SOB/ ACUTE DISTRESS NOTED THROUGHOUT THE NIGHT, NSR IN TELE MONITOR, WITH HR MOSTLY 70-80S, LCW HD CATHETER INTACT, S/P 1 PRBC WITH HD YESTERDAY, STOOL COLLECTED THIS MORNING ORDERED, NO SIGNIFICANT CHANGE IN CONDITION DURING THE NIGHT, CALL LIGHT WITHIN REACH, ALL SAFETY MEASURES OBSERVED, BED LOCKED AND IN LOWEST POSITION, WILL ENDORSE CONTINUITY OF CARE TO ONCOMING NURSE.
[2021-12-27 07:11] LABS: BASOPHILS # (AUTO) 0.1 K/uL (0.0-0.2); BASOPHILS % (AUTO) 0.4 % (0.0-2.0); EOSINOPHILS % (AUTO) 8.9 % (0.0-6.0); LYMPHOCYTES # (AUTO) 1.5 K/uL (0.8-4.8); LYMPHOCYTES % (AUTO) 12.3 % (20.0-44.0); MEAN CORPUSCULAR HGB CONC 33 g/dl (31.0-36.0); MEAN CORPUSCULAR VOLUME 97 fL (82-100); MONOCYTES # (AUTO) 0.7 K/uL (0.1-1.30); MONOCYTES % (AUTO) 5.7 % (2.0-12.0); NEUTROPHILS % (AUTO) 72.7 % (43.0-81.0); PLATELET COUNT (AUTO) 364 K/uL (150-450); RED BLOOD CELL COUNT(AUTO) 2.07 MIL/uL (4.0-5.2); WHITE BLOOD COUNT (AUTO) 12.3 K/uL (4.3-11.0)
--- NOTE | 2021-12-27 07:20 | NUR ---
WOUND CARE CONSULT: PT PRESENTS WITH RASHES AND SKIN IRRITATION TO BREASTFOLDS, ABDOMINAL/GROIN FOLDS AND SACRAL DEEP TISSUE INJURY IN EVOLUTION WHICH EXTENDS TO LEFT BUTTOCK, ALL PRESENT ON ADMISSION. PT INCONTINENT OF LOOSE STOOL. RECOMMEND SURGICAL CONSULT. DR WATKINS TO BE CALLED THIS AM FOR CONSULT REQUEST. FIRST STEP LOW AIRLOSS MATTRESS IS ON ORDER. RECOMMENDATIONS MADE FOR SKIN PROTECTION. DISCUSSED WITH NURSING STAFF. MD IN AGREEMENT WITH PLAN OF CARE. Addendum: 12/27/21 at 0722 by NATHALY FELIZ WNDNU Amended: Links added.
--- NOTE | 2021-12-27 07:25 | NUR ---
RENAL SYDNEE SOLIS. C/O PRINCE CHAIR TIME 1145 MWF.
--- NOTE | 2021-12-27 07:25 | NUR ---
RN OPENING NOTE RECEIVED PATIENT RESTING IN BED, ALERT AND ORIENTED X3. NO COMPLAINTS OF PAIN OR SOB. ON TRACHEOSTOMY WITH MECHANICAL VENTILATOR TOLERATING WELL O2 SAT OF 98%, WITH LEFT UPPER UPPER CHEST HD CATHETER, IV ACCESS ON LEFT LEG PATENT AND INTACT. PATIENT WITH G-TUBE PATENT, NO RESIDUAL NOTED, GT NOTED IN PLACE VIA AUSCULTATION. ALL SAFETY MEASURES IN PLACE. HOB ELEVATED, BED LOCKED AND IN LOWEST POSITION WITH SIDERAILS UP. CALL LIGHT WITHIN REACH. WILL CONTINUE TO MONITOR PATIENT ACCORDINGLY.
[2021-12-27 07:26] LABS: HEMOGLOBIN 6.5 g/dL (11.5-14.8)
[2021-12-27 07:27] LABS: HEMATOCRIT 20 % (33-45)
[2021-12-27 07:36] LABS: CALCIUM, SERUM 9.5 mg/dL (8.5-10.1); CARBON DIOXIDE 27 mmol/L (21-32); CHLORIDE 97 mmol/L (98-107); CREATININE 3.2 mg/dL (0.6-1.3); GLUCOSE 203 mg/dL (74-106); POTASSIUM 3.3 mmol/L (3.5-5.1); SODIUM SERUM 134 mmol/L (136-145); UREA NITROGEN, BLOOD 57 mg/dL (7-18)
[2021-12-27] MEDS: CARVEDILOL 6.25 MG TABLET GT SCH ×2 (09:00→17:10)
[2021-12-27] MEDS: LOSARTAN POTASSIUM 50 MG TABLET GT SCH ×2 (09:00→17:10)
[2021-12-27] MEDS: AMLODIPINE BESYLATE 5 MG TABLET NG SCH (09:00)
[2021-12-27] MEDS: METOPROLOL TARTRATE 25 MG TABLET GT SCH ×2 (09:00→21:00)
[2021-12-27] MEDS: CHLORHEXIDINE GLUCONATE 15 ML UDC MM SCH ×2 (09:18→21:46)
[2021-12-27] MEDS: POLYETHYLENE GLYCOL 3350 17 GM POWD.PACK GT SCH (09:19)
[2021-12-27] MEDS: PANTOPRAZOLE 40 MG/PACK PACK NG SCH (09:19)
[2021-12-27] MEDS: ESCITALOPRAM OXALATE (10 MG) 10 MG TABLET GT SCH (09:20)
[2021-12-27] MEDS: ZINC SULFATE 220 MG CAPSULE GT SCH (09:20)
[2021-12-27] MEDS: ASCORBIC ACID 500 MG TABLET GT SCH (09:20)
[2021-12-27] MEDS: VIT B CMPLX 3/FA/VIT C/BIOTIN 1 TAB TABLET GT SCH (09:20)
[2021-12-27] MEDS: SEVELAMER CARBONATE 800 MG POWD.PACK GT SCH ×3 (09:20→17:10)
[2021-12-27] MEDS: LEVOTHYROXINE SODIUM 88 MCG TABLET GT SCH (09:20)
[2021-12-27] MEDS: PROSOURCE / PROSTAT (PYXIS) 30 ML UDC GT SCH (09:24)
[2021-12-27] MEDS: ZINC OXIDE 56.7 GM TUBE TP SCH (09:24)
--- NOTE | 2021-12-27 13:47 | NUR ---
RN NOTES PER PHARMACY OK TO GIVE VANCOMYCIN, WAS NOT GIVEN YESTERDAY POST HD. WILL GIVE NOW.
[2021-12-27] MEDS: VANCOMYCIN 500 MG in IV D5W 100 ML IV PRN (13:49)
[2021-12-27] MEDS: EPOETIN ALFA-EPBX 10,000 UNIT/ML VIAL SQ SCH (15:48)
[2021-12-27] MEDS: CLOTRIMAZOLE 1% 15 GM TUBE TP SCH ×2 (15:48→17:11)
--- NOTE | 2021-12-27 16:30 | NUR ---
RN NOTES SPECIAL MATTRESS PLACED ON PATIENT.
--- NOTE | 2021-12-27 18:52 | NUR ---
RN NOTES PER LAB, BLOOD IS READY FOR COSTUME CUTTER. WILL ENDORSE TO ONCOMING NURSE FOR TRANSFUSION.
--- NOTE | 2021-12-27 19:10 | NUR ---
RN OPENING NOTES RECEIVED PATIENT IN BED, ALERT AND ORIENTED X 3. RESPIRATORY EVEN AND UNLABORED. ON MECHANICAL VENTILATION SETTINGS TOLERATED WELL WITH O2 SAT OF 99%. WITH JASE MIDLINE, IV ACCESS LEFT LOWER LEG, PATENT INTACT, FLUSHED WITH NS. PATIENR WITH LEFT UPPER CHEST HD CATHETER, NO BLEEDING NOTED. PATIENT WITH G-TUBE IN PLACED, PATENT, RUNNING WITH NEPHRO @ 70ML/HR. NO RESIDUAL NOTED UPON ASPIRATION. ALL SAFETY MEASURES IN PLACE. HOB ELEVATED, BED LOCKED AND IN LOWEST POSITION, BED ALARM ARMED. CALL LIGHT WITHIN REACH.
--- NOTE | 2021-12-27 19:49 | NUR ---
RN CLOSING NOTE PATIENT RESTING IN BED, ALERT AND ORIENTED X3. ON TRACHEOSTOMY WITH MECHANICAL VENTILATOR TOLERATING WELL.WITH LEFT UPPER UPPER CHEST HD CATHETER. IV ACCESS ON JASE MIDLINE AND LEFT LEG, PATENT AND INTACT. PATIENT WITH G-TUBE PATENT RUNNING 70/MLS HR, TOLERATING WELL. SAFETY MEASURES IN PLACE, HOB ELEVATED, BED LOCKED AND IN LOWEST POSITION WITH SIDERAILS UP. CALL LIGHT WITHIN REACH. ENDORSED TO ONCOMING NURSE FOR SALVATORE.
--- NOTE | 2021-12-27 20:32 | NUR ---
RN NOTES BLOOD TRANSFUSION STARTED, NO ADVERSE REACTION NOTED. CONTINUE TO MONITOR.
[2021-12-27] MEDS: OLANZAPINE 2.5 MG TABLET GT SCH (21:46)
[2021-12-27] MEDS: DOCUSATE SODIUM LIQ 100 MG/10 ML UDC GT SCH (21:46)
[2021-12-27] MEDS: NEPRO 1,000 ML BOTTLE GT PRN (22:09)
[2021-12-27] MEDS: INSULIN GLARGINE, 100 UNIT/ML CARTRIDGE SQ SCH (23:15)
--- NOTE | 2021-12-27 23:47 | NUR ---
RN NOTES PATIENT RECEIVED 1 PRBC, NO ADVERSE REACTION NOTED, VITAL SIGNS WNL, PATIENT IS IN STABLE CONDITION. WILL CONTINUE TO MONITOR FOR ANY ADVERSE REACTION.
[2021-12-28] VITALS: BP 127/86
[2021-12-28 04:00] VITALS: BP 138/56
[2021-12-28] MEDS: PIPERACILLIN /TAZOBACTAM 2.25 G in IV D5W 50 ML IV SCH ×3 (05:12→21:10)
[2021-12-28] MEDS: BLOOD SUGAR DIAGNOSTIC 1 EACH STRIP IN SCH ×3 (06:00→17:42)
[2021-12-28] MEDS: INSULIN REGULAR, HUMAN 100 UNIT/ML 3 ML VIAL SQ PRN ×2 (06:01→17:47)
[2021-12-28 06:53] LABS: BASOPHILS # (AUTO) 0.1 K/uL (0.0-0.2); BASOPHILS % (AUTO) 0.5 % (0.0-2.0); EOSINOPHILS % (AUTO) 12.5 % (0.0-6.0); HEMATOCRIT 24 % (33-45); HEMOGLOBIN 7.9 g/dL (11.5-14.8); LYMPHOCYTES # (AUTO) 1.9 K/uL (0.8-4.8); LYMPHOCYTES % (AUTO) 15.7 % (20.0-44.0); MEAN CORPUSCULAR HGB CONC 33 g/dl (31.0-36.0); MEAN CORPUSCULAR VOLUME 96 fL (82-100); MONOCYTES # (AUTO) 0.8 K/uL (0.1-1.30); MONOCYTES % (AUTO) 6.2 % (2.0-12.0); NEUTROPHILS % (AUTO) 65.1 % (43.0-81.0); PLATELET COUNT (AUTO) 347 K/uL (150-450); RED BLOOD CELL COUNT(AUTO) 2.52 MIL/uL (4.0-5.2); WHITE BLOOD COUNT (AUTO) 12.3 K/uL (4.3-11.0)
[2021-12-28 07:05] LABS: CALCIUM, SERUM 9.8 mg/dL (8.5-10.1); CARBON DIOXIDE 28 mmol/L (21-32); CHLORIDE 97 mmol/L (98-107); GLUCOSE 164 mg/dL (74-106); POTASSIUM 3.5 mmol/L (3.5-5.1); SODIUM SERUM 134 mmol/L (136-145); UREA NITROGEN, BLOOD 71 mg/dL (7-18)
--- NOTE | 2021-12-28 07:18 | NUR ---
RN CLOSING NOTES PATIENT REMAIN STABLE THROUGH OUT THE SHIFT, RESPIRATORY EVEN AND UNLABORED. ON MECHANICAL VENTILATION SETTINGS TOLERATED WELL WITH O2 SAT OF 99%.RUNNING WITH NEPHRO @ 70ML/HR. HEAD OF BED KEPT ELEVATED. ALL DUE MEDS GIVEN ORDERED. ALL SAFETY MEASURES IN PLACE. HOB ELEVATED, BED LOCKED AND IN LOWEST POSITION, BED ALARM ARMED. CALL LIGHT WITHIN REACH.
--- NOTE | 2021-12-28 07:30 | NUR ---
RN OPENING NOTE PT AWAKE AND ALERT UPON ASSESSMENT. PT A&OX4. PT BREATHING EVEN AND UNLABORED ON MECHANICAL VENTILATION AC=12,MP=893, FIO2=40%, PEEP=5 TOLERATING WELL WITH NO SIGN OF DISTRESS AND O2SAT OF 99%. PATIENT HAS G TUBE RUNNING NEPHRO @ 70ML/HR. PATIENT HAS L UPPER CHEST HD CATH INTACT AND PATENT. PATIENT HAS JASE MIDLINE INTACT AND PATENT AND LEFT LOWER LEG IV ACCESS INTACT AND PATENT. PATIENT BED IN LOWEST POSITION AND WHEELS LOCKED IN PLACE. ALL SAFETY MEASURES NOTED. CALL LIGHT WITHIN REACH. WILL CONTINUE TO MONITOR.
[2021-12-28 08:00] VITALS: BP 168/60
[2021-12-28] MEDS: CHLORHEXIDINE GLUCONATE 15 ML UDC MM SCH ×2 (08:08→21:12)
[2021-12-28] MEDS: SEVELAMER CARBONATE 800 MG POWD.PACK GT SCH ×3 (08:09→16:35)
[2021-12-28] MEDS: PANTOPRAZOLE 40 MG/PACK PACK NG SCH (08:09)
[2021-12-28] MEDS: ASCORBIC ACID 500 MG TABLET GT SCH (08:10)
[2021-12-28] MEDS: METOPROLOL TARTRATE 25 MG TABLET GT SCH ×2 (08:10→21:12)
[2021-12-28] MEDS: LEVOTHYROXINE SODIUM 88 MCG TABLET GT SCH (08:10)
[2021-12-28] MEDS: AMLODIPINE BESYLATE 5 MG TABLET NG SCH (08:10)
[2021-12-28] MEDS: ZINC SULFATE 220 MG CAPSULE GT SCH (08:11)
[2021-12-28] MEDS: VIT B CMPLX 3/FA/VIT C/BIOTIN 1 TAB TABLET GT SCH (08:11)
[2021-12-28] MEDS: CARVEDILOL 6.25 MG TABLET GT SCH ×2 (08:11→16:36)
[2021-12-28] MEDS: ESCITALOPRAM OXALATE (10 MG) 10 MG TABLET GT SCH (08:11)
[2021-12-28] MEDS: LOSARTAN POTASSIUM 50 MG TABLET GT SCH ×2 (08:11→16:36)
[2021-12-28] MEDS: POLYETHYLENE GLYCOL 3350 17 GM POWD.PACK GT SCH (08:11)
[2021-12-28] MEDS: PROSOURCE / PROSTAT (PYXIS) 30 ML UDC GT SCH (08:13)
[2021-12-28] MEDS: CLOTRIMAZOLE 1% 15 GM TUBE TP SCH ×2 (08:17→16:49)
[2021-12-28] MEDS: ZINC OXIDE 56.7 GM TUBE TP SCH (08:18)
[2021-12-28 11:57] LABS: EOSINOPHILS % (MANUAL) 13 % (0-4); LYMPHOCYTES % (MANUAL) 13 % (16-48); METAMYELOCYTES % 2 % (0-0); MONOCYTES % (MANUAL) 8 % (0-11.0); MYELOCYTES % 2 % (0-0); NEUTROPHILS % (MANUAL) 62 (42-76)
[2021-12-28 12:00] VITALS: BP 144/68
--- NOTE | 2021-12-28 13:00 | NUR ---
RN NOTE MRSA ACTIVE SURVEILLENCE SWAB ORDERED PER DR GR. DONE AND DELIVERED TO LAB. RESULTS PENDING.
[2021-12-28 16:00] VITALS: BP 157/56
[2021-12-28] MEDS: VANCOMYCIN 500 MG in IV D5W 100 ML IV PRN (16:20)
--- NOTE | 2021-12-28 18:40 | NUR ---
RN CLOSING NOTE PATIENT REMAINED STABLE THROUGHOUT SHIFT. PT A&OX4 MOUTHS WORDS ONLY. PT BREATHING EVEN AND UNLABORED ON MECHANICAL VENTILATION AC=12,GY=756, FIO2=40%, PEEP=5 TOLERATING WELL WITH NO SIGN OF DISTRESS AND O2SAT OF 99%. PATIENT HAS G TUBE INTACT AND PATENT. PATIENT HAS L UPPER CHEST HD CATH INTACT AND PATENT. PATIENT HAS JASE MIDLINE INTACT AND PATENT AND LEFT LOWER LEG IV ACCESS INTACT AND PATENT. ALL DUE MEDS GIVEN ORDERED. PATIENT BED IN LOWEST POSITION AND WHEELS LOCKED IN PLACE. ALL SAFETY MEASURES NOTED. CALL LIGHT WITHIN REACH. WILL ENDORSE TO DOCUMENT PHOTOGRAPHER RN..
--- NOTE | 2021-12-28 19:10 | NUR ---
RN NOTES RECEIVED REPORT FROM MORNING RN. PATIENT A/O X4 MOUTHING WORDS. WITH TRACH XLT #7 INTACT CONNECTED TO MV WITH PRESCRIBED SETTING AC12 TV 450 FIO2 40 PEEP 5 TOLERATING WELL SATING 100%. WITH R UA MIDLINE PATENT FLUSHES WELL. WITH R LOWER LEG # 22 PATENT FLUSHES WELL. WITH PERMA CATH AT L UPPER CHEST INTACT NO BLEEDING NOTED. WITH GT PATENT NO RESIDUAL NOTED CONNECTED TO CONTINUOS FEEDING NEPHRO @70CC/HR. VITAL SIGNS TAKEN AND RECORDED AFEBRILE. ALL SAFETY MEASURES IN PLACE AT ALL TIMES. HOB ELEVATED. CALL LIGHT WITHIN REACH. BED O0N LOWEST POSITION AND LOCKED. WILL CONTINUE TO MONITOR.
[2021-12-28 20:00] VITALS: BP 144/45
[2021-12-28] MEDS: OLANZAPINE 2.5 MG TABLET GT SCH (21:10)
[2021-12-28] MEDS: DOCUSATE SODIUM LIQ 100 MG/10 ML UDC GT SCH (22:00)
[2021-12-28] MEDS: INSULIN GLARGINE, 100 UNIT/ML CARTRIDGE SQ SCH (22:25)
[2021-12-29] VITALS: BP 127/73
[2021-12-29] MEDS: BLOOD SUGAR DIAGNOSTIC 1 EACH STRIP IN SCH ×4 (00:06→17:11)
--- NOTE | 2021-12-29 00:07 | NUR ---
RN NOTES BS 104MG/DL NO COVERAGE NOTED. WILL CONTINUE TO MONITOR
[2021-12-29 04:00] VITALS: BP 145/110
[2021-12-29] MEDS: PIPERACILLIN /TAZOBACTAM 2.25 G in IV D5W 50 ML IV SCH (05:04)
--- NOTE | 2021-12-29 05:54 | NUR ---
RN NOTES BS 119MG/DL NO INSULIN COVERAGE.
[2021-12-29 06:44] LABS: BASOPHILS # (AUTO) 0.1 K/uL (0.0-0.2); BASOPHILS % (AUTO) 0.6 % (0.0-2.0); EOSINOPHILS % (AUTO) 10.8 % (0.0-6.0); HEMATOCRIT 25 % (33-45); HEMOGLOBIN 8.2 g/dL (11.5-14.8); LYMPHOCYTES # (AUTO) 2.1 K/uL (0.8-4.8); LYMPHOCYTES % (AUTO) 15.1 % (20.0-44.0); MEAN CORPUSCULAR HGB CONC 33 g/dl (31.0-36.0); MEAN CORPUSCULAR VOLUME 95 fL (82-100); MONOCYTES # (AUTO) 0.9 K/uL (0.1-1.30); MONOCYTES % (AUTO) 6.7 % (2.0-12.0); NEUTROPHILS # (AUTO) 9.2 K/uL (1.8-8.9); NEUTROPHILS % (AUTO) 66.8 % (43.0-81.0); PLATELET COUNT (AUTO) 361 K/uL (150-450); RED BLOOD CELL COUNT(AUTO) 2.59 MIL/uL (4.0-5.2); WHITE BLOOD COUNT (AUTO) 13.8 K/uL (4.3-11.0)
--- NOTE | 2021-12-29 06:50 | NUR ---
RN NOTES PATIENT REMAINS STABLE NO SIGNIFICANT CHANGES IN HEALTH CONDITION. ALL DUE MEDS GIVEN ORDERED. ALL NEEDS ATTENDED PROMPTLY. STILL ON VENTILATOR TOLERATING WELL SATING 100%. GT INTACT NO GASTRIC RESIDUAL NOTED. ALL SAFETY MEASURES IN PLACE AT ALL TIMES. HOB ELEVATED. CALL L9IGHT WITHIN REACH. BED ON LOWEST POSITION AND LOCKED. WILL CONTINUE TO MONITOR. ENDORSED TO MORNING SHIFT FOR SALVATORE
[2021-12-29 08:00] VITALS: BP 115/94
[2021-12-29 08:01] LABS: CALCIUM, SERUM 9.5 mg/dL (8.5-10.1); CARBON DIOXIDE 30 mmol/L (21-32); CHLORIDE 97 mmol/L (98-107); CREATININE 2.6 mg/dL (0.6-1.3); GLUCOSE 123 mg/dL (74-106); POTASSIUM 3.4 mmol/L (3.5-5.1); SODIUM SERUM 132 mmol/L (136-145); UREA NITROGEN, BLOOD 36 mg/dL (7-18)
[2021-12-29] MEDS: POLYETHYLENE GLYCOL 3350 17 GM POWD.PACK GT SCH (09:00)
[2021-12-29] MEDS: CHLORHEXIDINE GLUCONATE 15 ML UDC MM SCH (09:33)
[2021-12-29] MEDS: VIT B CMPLX 3/FA/VIT C/BIOTIN 1 TAB TABLET GT SCH (09:33)
[2021-12-29] MEDS: ESCITALOPRAM OXALATE (10 MG) 10 MG TABLET GT SCH (09:33)
[2021-12-29] MEDS: ASCORBIC ACID 500 MG TABLET GT SCH (09:34)
[2021-12-29] MEDS: ZINC SULFATE 220 MG CAPSULE GT SCH (09:34)
[2021-12-29] MEDS: SEVELAMER CARBONATE 800 MG POWD.PACK GT SCH ×3 (09:34→17:06)
[2021-12-29] MEDS: PANTOPRAZOLE 40 MG/PACK PACK NG SCH (09:34)
[2021-12-29] MEDS: LOSARTAN POTASSIUM 50 MG TABLET GT SCH ×2 (09:35→17:06)
[2021-12-29] MEDS: METOPROLOL TARTRATE 25 MG TABLET GT SCH (09:35)
[2021-12-29] MEDS: CARVEDILOL 6.25 MG TABLET GT SCH ×2 (09:35→17:06)
[2021-12-29] MEDS: AMLODIPINE BESYLATE 5 MG TABLET NG SCH (09:36)
[2021-12-29] MEDS: LEVOTHYROXINE SODIUM 88 MCG TABLET GT SCH (09:39)
[2021-12-29] MEDS: PROSOURCE / PROSTAT (PYXIS) 30 ML UDC GT SCH (09:45)
[2021-12-29] MEDS: ZINC OXIDE 56.7 GM TUBE TP SCH (09:48)
[2021-12-29] MEDS: CLOTRIMAZOLE 1% 15 GM TUBE TP SCH ×2 (09:48→17:10)
[2021-12-29] MEDS: NEPRO 1,000 ML BOTTLE GT PRN (11:18)
[2021-12-29 12:00] VITALS: BP 139/48
[2021-12-29 16:00] VITALS: BP 153/69
[2021-12-29] MEDS: EPOETIN ALFA-EPBX 10,000 UNIT/ML VIAL SQ SCH (16:11)
[2021-12-29 17:06] VITALS: BP 153/69
--- NOTE | 2021-12-29 19:06 | NUR ---
RN NOTE PT LEFT UNIT, IN STABLE CONDITION. WITH 2 EMT AND 1 RT. PT TOLERATING VENT SETTINGS. NOT IN RESPIRATORY DISTRESS. CN ENDORSED TO [facility]. D/C INSTRUCTIONS GIVEN TO EMT.
== END 2021-12-30 04:26 | DRG 207 ==
LOC: ER 12:02 → TELE1 16:00
PROVIDERS: ADMIT Nurse Practitioner Acute Care; ATTEND Internal Medicine
PROC: 5A1955Z Respiratory Ventilation, Greater than 96 Consecutive Hours (ICD-10-PCS; principal; 2021-12-25)
PROC: 5A1D70Z Performance of Urinary Filtration, Intermittent, Less than 6 Hours Per Day (ICD-10-PCS; 2021-12-26)
PROC: 30233N1 Transfusion of Nonautologous Red Blood Cells into Peripheral Vein, Percutaneous Approach (ICD-10-PCS; 2021-12-26)
DX: J15.6 Pneumonia due to other Gram-negative bacteria (principal); N18.6 End stage renal disease; J96.20 Acute and chronic respiratory failure, unspecified whether with hypoxia or hypercapnia; E43 Unspecified severe protein-calorie malnutrition; R65.11 Systemic inflammatory response syndrome (SIRS) of non-infectious origin with acute organ dysfunction; D68.59 Other primary thrombophilia; Z99.11 Dependence on respirator [ventilator] status; I12.0 Hypertensive chronic kidney disease with stage 5 chronic kidney disease or end stage renal disease; J44.0 Chronic obstructive pulmonary disease with (acute) lower respiratory infection; J98.11 Atelectasis; E11.22 Type 2 diabetes mellitus with diabetic chronic kidney disease; D63.8 Anemia in other chronic diseases classified elsewhere; E03.9 Hypothyroidism, unspecified; L30.4 Erythema intertrigo; Z20.822 Contact with and (suspected) exposure to COVID-19; Z93.0 Tracheostomy status; Z93.1 Gastrostomy status; Z88.1 Allergy status to other antibiotic agents; Z88.5 Allergy status to narcotic agent; Z88.2 Allergy status to sulfonamides; Z88.8 Allergy status to other drugs, medicaments and biological substances; Z79.4 Long term (current) use of insulin; Z79.82 Long term (current) use of aspirin; Z79.899 Other long term (current) drug therapy; Z79.51 Long term (current) use of inhaled steroids; Z79.01 Long term (current) use of anticoagulants; Z79.84 Long term (current) use of oral hypoglycemic drugs; Z86.73 Personal history of transient ischemic attack (TIA), and cerebral infarction without residual deficits; E78.5 Hyperlipidemia, unspecified; Z74.09 Other reduced mobility; R13.10 Dysphagia, unspecified; Y95 Nosocomial condition; E88.09 Other disorders of plasma-protein metabolism, not elsewhere classified; Z99.2 Dependence on renal dialysis; Z86.14 Personal history of Methicillin resistant Staphylococcus aureus infection; L89.156 Pressure-induced deep tissue damage of sacral region; M89.8X9 Other specified disorders of bone, unspecified site
CPT/HCPCS: 31720; 36415; 71045-TC; 80048-TC; 80074; 80076-TC; 80202-TC; 82272-TC; 82962-TC; 83605-TC; 83735-TC; 83970; 84100-TC; 84484-TC; 85025-TC; 85730-TC; 86704; 86706; 86850-TC; 87040-TC; 87081-TC; 90935-TC; 94002-TC; 94003-TC; 94760-TC; 94762-TC; 94799-TC; 99082-TC; A6253; C9803; G0378; J0885; J1815; J2543; J3370; J7030; J7050; J7060; P9016

== ENCOUNTER 2022-01-03 15:45 | Inpatient (IN) | payer MEDICARE, OTHER ==
[~2022-01-03] VITALS: Ht 162.6 cm; Wt 70.3 kg
[~2022-01-03 15:45] MED LIST changes: +ACET-868 GT; -ASPI-1420 PO; -CEFE1FRO IV; -CLON0.1T PO; -DAPT500V2 IV; -EPOE1000 SQ; +INSU100V7 SQ; -Insulin Glargine,Hum SQ; +METO25TA20 GT; -METO25TA20 PO; +NUT.237L67 GT; -Nepro GT; +OMEP40CA21 GT; -PANT40TA2 PO; -RIVA10TA GT; +SEVE0.8P3 GT; -SEVE800T8 PO; +ZINC1CAP3 GT
[2022-01-03] MEDS ORDERED: AMLO-212 GT (16:30)
[2022-01-03] MEDS ORDERED: ACET-2605 GT (16:30)
[2022-01-03] MEDS ORDERED: VANC1PLA9 IV (16:30)
[2022-01-03] MEDS ORDERED: PIPE2.257 IV (16:30)
[2022-01-03] MEDS ORDERED: INSU100V28 SQ (16:30)
[2022-01-03 17:36] LABS: BASOPHILS # (AUTO) 0.1 K/uL (0.0-0.2); BASOPHILS % (AUTO) 1.1 % (0.0-2.0); EOSINOPHILS % (AUTO) 5.9 % (0.0-6.0); LYMPHOCYTES # (AUTO) 2.1 K/uL (0.8-4.8); MEAN CORPUSCULAR HGB CONC 30 g/dl (31.0-36.0); MEAN CORPUSCULAR VOLUME 103 fL (82-100); MONOCYTES # (AUTO) 1.2 K/uL (0.1-1.30); MONOCYTES % (AUTO) 8.7 % (2.0-12.0); NEUTROPHILS # (AUTO) 9.1 K/uL (1.8-8.9); NEUTROPHILS % (AUTO) 68.3 % (43.0-81.0); PLATELET COUNT (AUTO) 419 K/uL (150-450); WHITE BLOOD COUNT (AUTO) 13.3 K/uL (4.3-11.0)
[2022-01-03 17:44] LABS: RED BLOOD CELL COUNT(AUTO) 1.75 MIL/uL (4.0-5.2)
[2022-01-03 17:45] LABS: HEMATOCRIT 18 % (33-45); HEMOGLOBIN 5.5 g/dL (11.5-14.8)
[2022-01-03 17:53] LABS: CALCIUM, SERUM 9.3 mg/dL (8.5-10.1); CARBON DIOXIDE 27 mmol/L (21-32); CHLORIDE 108 mmol/L (98-107); CREATININE 1.8 mg/dL (0.6-1.3); GLUCOSE 143 mg/dL (74-106); POTASSIUM 3.3 mmol/L (3.5-5.1); SODIUM SERUM 144 mmol/L (136-145); UREA NITROGEN, BLOOD 27 mg/dL (7-18)
[2022-01-03 17:58] LABS: ALANINE AMINOTRANSFERASE 9 U/L (12-78); ALBUMIN 2.1 g/dL (3.4-5.0); ALKALINE PHOSPHATASE 133 U/L (46-116); ASPARTATE AMINOTRANSFERASE 11 U/L (15-37); BILIRUBIN,DIRECT 0.1 mg/dL (0.0-0.2); BILIRUBIN,TOTAL 0.3 mg/dL (0.2-1.0); TOTAL PROTEIN, SERUM 7.1 g/dL (6.4-8.2)
[2022-01-03 18:04] LABS: BASOPHILS % (MANUAL) 0 % (0.0-2.0); EOSINOPHILS % (MANUAL) 4 % (0-4); LYMPHOCYTES % (MANUAL) 19 % (16-48); MONOCYTES % (MANUAL) 7 % (0-11.0); NEUTROPHILS % (MANUAL) 70 (42-76)
[2022-01-03] MEDS ORDERED: DEXTROSE 50%-WATER 50 ML DISP.SYRIN IV PRN (22:00)
[2022-01-03] MEDS ORDERED: ACETAMINOPHEN 325 MG TABLET PO PRN (22:00)
[2022-01-03] MEDS ORDERED: HEPARIN SODIUM, PORCINE 5000 UNITS/1 ML VIAL SQ SCH (22:00)
[2022-01-03] MEDS ORDERED: ONDANSETRON HCL/PF 4 MG/2 ML VIAL IVP PRN (22:00)
[2022-01-03] MEDS ORDERED: ALBUTEROL FS 2.5 MG/3 ML VIAL.NEB IH PRN (22:00)
[2022-01-03] MEDS ORDERED: EPOETIN ALFA (10,000 UNIT) 10,000 UNIT/ML VIAL SQ SCH (22:00)
[2022-01-03] MEDS ORDERED: MAGNESIUM HYDROXIDE 30 ML UDC PO PRN (22:00)
[2022-01-03] MEDS ORDERED: DOCUSATE SODIUM 100 MG CAPSULE PO SCH (22:00)
[2022-01-03] MEDS ORDERED: NIFEdipine XL (30MG) 30 MG TAB PO SCH (22:00)
[2022-01-03] MEDS ORDERED: Z GUARD REMEDY 4 OZ OINT TP PRN (22:00)
[2022-01-03] MEDS ORDERED: MAG HYDROX/AL HYDROX/SIMETH 30 ML UDC PO PRN (22:00)
[2022-01-03] MEDS ORDERED: MORPHINE SULFATE INJ 2 MG/ML DISP.SYRIN IV PRN (22:00)
[2022-01-03] MEDS: BLOOD SUGAR DIAGNOSTIC 1 EACH STRIP VI SCH (23:12)
[2022-01-04] VITALS (8 sets, daily range): BP systolic 146–191; BP diastolic 56–150
[2022-01-04 00:04] LABS: IRON, SERUM 49 ug/dl (50-175); TOTAL IRON BINDING CAPACITY 207 ug/dl (250-450)
[2022-01-04 00:56] LABS: FERRITIN 564 ng/mL (8-388)
[2022-01-04] MEDS: OLANZAPINE 2.5 MG TABLET GT SCH ×2 (02:13→21:18)
[2022-01-04 02:18] LABS: HEMOGLOBIN 8.7 g/dL (11.5-14.8)
[2022-01-04] MEDS ORDERED: EPOETIN ALFA (10,000 UNIT) 10,000 UNIT/ML VIAL ONE (02:52)
[2022-01-04] MEDS: BLOOD SUGAR DIAGNOSTIC 1 EACH STRIP VI SCH ×5 (03:00→22:02)
[2022-01-04] MEDS: [UNRECOGNIZED DRUG - MIXTURE] GT SCH ×2 (06:17→22:57)
[2022-01-04 06:56] LABS: BASOPHILS # (AUTO) 0.1 K/uL (0.0-0.2); BASOPHILS % (AUTO) 1.2 % (0.0-2.0); EOSINOPHILS % (AUTO) 6.5 % (0.0-6.0); HEMATOCRIT 25 % (33-45); HEMOGLOBIN 8.3 g/dL (11.5-14.8); LYMPHOCYTES # (AUTO) 2.2 K/uL (0.8-4.8); LYMPHOCYTES % (AUTO) 17.5 % (20.0-44.0); MEAN CORPUSCULAR HGB CONC 33 g/dl (31.0-36.0); MEAN CORPUSCULAR VOLUME 99 fL (82-100); MONOCYTES # (AUTO) 1.1 K/uL (0.1-1.30); MONOCYTES % (AUTO) 8.8 % (2.0-12.0); NEUTROPHILS # (AUTO) 8.2 K/uL (1.8-8.9); PLATELET COUNT (AUTO) 403 K/uL (150-450); RED BLOOD CELL COUNT(AUTO) 2.54 MIL/uL (4.0-5.2); WHITE BLOOD COUNT (AUTO) 12.4 K/uL (4.3-11.0)
[2022-01-04] MEDS ORDERED: MAG HYDROX/AL HYDROX/SIMETH 30 ML UDC GT PRN (07:02)
[2022-01-04 07:29] LABS: ALANINE AMINOTRANSFERASE 8 U/L (12-78); ALKALINE PHOSPHATASE 110 U/L (46-116); ASPARTATE AMINOTRANSFERASE 20 U/L (15-37); BILIRUBIN,TOTAL 0.2 mg/dL (0.2-1.0); CALCIUM, SERUM 8.9 mg/dL (8.5-10.1); CARBON DIOXIDE 21 mmol/L (21-32); CHLORIDE 108 mmol/L (98-107); CREATININE 2.3 mg/dL (0.6-1.3); GLUCOSE 163 mg/dL (74-106); MAGNESIUM 2.6 mg/dL (1.8-2.4); PHOSPHORUS 2.6 mg/dL (2.5-4.9); POTASSIUM 3.9 mmol/L (3.5-5.1); SODIUM SERUM 139 mmol/L (136-145); TOTAL PROTEIN, SERUM 7.2 g/dL (6.4-8.2); UREA NITROGEN, BLOOD 32 mg/dL (7-18)
[2022-01-04] MEDS ORDERED: ACETAMINOPHEN 650 MG/20.3 ML UDC GT PRN (07:30)
[2022-01-04] MEDS ORDERED: NIFEdipine XL (30MG) 30 MG TAB PO SCH (09:00)
[2022-01-04] MEDS: ESCITALOPRAM OXALATE (10 MG) 10 MG TABLET GT SCH (09:58)
[2022-01-04] MEDS: CHLORHEXIDINE GLUCONATE 15 ML UDC MM SCH ×2 (09:59→21:19)
[2022-01-04] MEDS: ASCORBIC ACID 500 MG TABLET GT SCH (09:59)
[2022-01-04] MEDS: METOPROLOL TARTRATE 25 MG TABLET GT SCH ×2 (09:59→21:19)
[2022-01-04] MEDS: POLYETHYLENE GLYCOL 3350 17 GM POWD.PACK GT SCH (10:00)
[2022-01-04] MEDS: LOSARTAN POTASSIUM 50 MG TABLET GT SCH ×2 (10:00→16:31)
[2022-01-04] MEDS: SEVELAMER CARBONATE 800 MG POWD.PACK GT SCH ×3 (10:00→16:30)
[2022-01-04] MEDS: PANTOPRAZOLE 40 MG/PACK PACK GT SCH (10:00)
[2022-01-04] MEDS: LEVOTHYROXINE SODIUM 88 MCG TABLET GT SCH (10:03)
[2022-01-04] MEDS: VIT B CMPLX 3/FA/VIT C/BIOTIN 1 TAB TABLET GT SCH (10:03)
[2022-01-04] MEDS: LABETALOL 20 MG/4 ML VIAL IV PRN ×2 (10:04→22:49)
[2022-01-04] MEDS: PROSOURCE / PROSTAT (PYXIS) 30 ML UDC GT SCH (10:05)
[2022-01-04] MEDS: INSULIN REGULAR, HUMAN 100 UNIT/ML 3 ML VIAL SQ PRN ×2 (10:08→17:58)
[2022-01-04] MEDS: ZINC OXIDE 56.7 GM TUBE TP SCH (16:30)
[2022-01-04] MEDS: CLOTRIMAZOLE 1% 15 GM TUBE TP SCH (16:30)
[2022-01-04 20:02] LABS: OCCULT BLOOD STOOL POSITIVE (NEGATIVE)
[2022-01-04 20:22] LABS: HEMOGLOBIN 8.7 g/dL (11.5-14.8)
[2022-01-04] MEDS: DOCUSATE SODIUM LIQ 100 MG/10 ML UDC GT SCH (21:20)
[2022-01-04] MEDS: INSULIN GLARGINE, 100 UNIT/ML CARTRIDGE SQ SCH (21:58)
[2022-01-04] MEDS: *INSULIN REGULAR(HUMULIN R)HUM 100 UNIT/ML VIAL SQ PRN (22:01)
[2022-01-05] VITALS (7 sets, daily range): BP systolic 130–210; BP diastolic 63–92
[2022-01-05 02:02] LABS: HEMOGLOBIN 9.2 g/dL (11.5-14.8)
[2022-01-05] MEDS: LABETALOL 20 MG/4 ML VIAL IV PRN ×2 (05:28→16:15)
[2022-01-05] MEDS: LOSARTAN POTASSIUM 50 MG TABLET GT SCH ×2 (08:52→16:08)
[2022-01-05] MEDS: METOPROLOL TARTRATE 25 MG TABLET GT SCH ×2 (08:52→22:02)
[2022-01-05] MEDS: BLOOD SUGAR DIAGNOSTIC 1 EACH STRIP VI SCH ×4 (08:52→22:16)
[2022-01-05] MEDS: ESCITALOPRAM OXALATE (10 MG) 10 MG TABLET GT SCH (08:52)
[2022-01-05] MEDS: ASCORBIC ACID 500 MG TABLET GT SCH (08:52)
[2022-01-05] MEDS: PANTOPRAZOLE 40 MG/PACK PACK GT SCH (08:52)
[2022-01-05] MEDS: CHLORHEXIDINE GLUCONATE 15 ML UDC MM SCH ×2 (08:52→21:57)
[2022-01-05] MEDS: VIT B CMPLX 3/FA/VIT C/BIOTIN 1 TAB TABLET GT SCH (08:52)
[2022-01-05] MEDS: SEVELAMER CARBONATE 800 MG POWD.PACK GT SCH ×3 (08:53→16:08)
[2022-01-05] MEDS: POLYETHYLENE GLYCOL 3350 17 GM POWD.PACK GT SCH (08:53)
[2022-01-05] MEDS: PROSOURCE / PROSTAT (PYXIS) 30 ML UDC GT SCH (08:54)
[2022-01-05] MEDS: ZINC OXIDE 56.7 GM TUBE TP SCH (08:54)
[2022-01-05] MEDS: CLOTRIMAZOLE 1% 15 GM TUBE TP SCH ×2 (08:54→16:08)
[2022-01-05] MEDS: LEVOTHYROXINE SODIUM 88 MCG TABLET GT SCH (08:57)
[2022-01-05] MEDS: INSULIN REGULAR, HUMAN 100 UNIT/ML 3 ML VIAL SQ PRN ×2 (09:18→13:34)
[2022-01-05 10:31] LABS: BASOPHILS # (AUTO) 0.1 K/uL (0.0-0.2); BASOPHILS % (AUTO) 0.4 % (0.0-2.0); EOSINOPHILS % (AUTO) 4.6 % (0.0-6.0); HEMATOCRIT 29 % (33-45); HEMOGLOBIN 9.2 g/dL (11.5-14.8); LYMPHOCYTES # (AUTO) 1.7 K/uL (0.8-4.8); LYMPHOCYTES % (AUTO) 12.9 % (20.0-44.0); MEAN CORPUSCULAR HGB CONC 32 g/dl (31.0-36.0); MEAN CORPUSCULAR VOLUME 101 fL (82-100); MONOCYTES # (AUTO) 0.7 K/uL (0.1-1.30); MONOCYTES % (AUTO) 5.4 % (2.0-12.0); NEUTROPHILS # (AUTO) 10.4 K/uL (1.8-8.9); NEUTROPHILS % (AUTO) 76.7 % (43.0-81.0); PLATELET COUNT (AUTO) 447 K/uL (150-450); RED BLOOD CELL COUNT(AUTO) 2.85 MIL/uL (4.0-5.2); WHITE BLOOD COUNT (AUTO) 13.5 K/uL (4.3-11.0)
[2022-01-05 10:32] LABS: HEMOGLOBIN 9.1 g/dL (11.5-14.8)
[2022-01-05] MEDS: EPOETIN ALFA-EPBX 10,000 UNIT/ML VIAL SQ SCH (16:07)
[2022-01-05] MEDS: CEFEPIME 1 GM in IV D5W 50 ML IV SCH (17:41)
[2022-01-05 18:27] LABS: HEMOGLOBIN 9.1 g/dL (11.5-14.8)
[2022-01-05] MEDS: DOCUSATE SODIUM LIQ 100 MG/10 ML UDC GT SCH (21:57)
[2022-01-05] MEDS: OLANZAPINE 2.5 MG TABLET GT SCH (21:57)
[2022-01-05] MEDS: INSULIN GLARGINE, 100 UNIT/ML CARTRIDGE SQ SCH (22:10)
[2022-01-05] MEDS: *INSULIN REGULAR(HUMULIN R)HUM 100 UNIT/ML VIAL SQ PRN (22:13)
[2022-01-06] VITALS (7 sets, daily range): BP systolic 170–196; BP diastolic 55–78
[2022-01-06 02:29] LABS: HEMOGLOBIN 9.5 g/dL (11.5-14.8)
[2022-01-06] MEDS: LABETALOL 20 MG/4 ML VIAL IV PRN ×2 (04:38→16:59)
[2022-01-06 07:02] LABS: BASOPHILS # (AUTO) 0.1 K/uL (0.0-0.2); BASOPHILS % (AUTO) 1.1 % (0.0-2.0); EOSINOPHILS % (AUTO) 8.8 % (0.0-6.0); HEMATOCRIT 28 % (33-45); LYMPHOCYTES # (AUTO) 2.4 K/uL (0.8-4.8); LYMPHOCYTES % (AUTO) 19.2 % (20.0-44.0); MEAN CORPUSCULAR HGB CONC 33 g/dl (31.0-36.0); MEAN CORPUSCULAR VOLUME 101 fL (82-100); MONOCYTES # (AUTO) 1.1 K/uL (0.1-1.30); MONOCYTES % (AUTO) 8.6 % (2.0-12.0); NEUTROPHILS # (AUTO) 7.7 K/uL (1.8-8.9); NEUTROPHILS % (AUTO) 62.3 % (43.0-81.0); PLATELET COUNT (AUTO) 485 K/uL (150-450); RED BLOOD CELL COUNT(AUTO) 2.77 MIL/uL (4.0-5.2); WHITE BLOOD COUNT (AUTO) 12.4 K/uL (4.3-11.0)
[2022-01-06 07:07] LABS: CALCIUM, SERUM 9.5 mg/dL (8.5-10.1); CARBON DIOXIDE 25 mmol/L (21-32); CHLORIDE 102 mmol/L (98-107); CREATININE 2.9 mg/dL (0.6-1.3); GLUCOSE 185 mg/dL (74-106); MAGNESIUM 2.5 mg/dL (1.8-2.4); POTASSIUM 3.7 mmol/L (3.5-5.1); SODIUM SERUM 139 mmol/L (136-145); UREA NITROGEN, BLOOD 44 mg/dL (7-18)
[2022-01-06] MEDS: BLOOD SUGAR DIAGNOSTIC 1 EACH STRIP VI SCH ×4 (08:35→21:21)
[2022-01-06] MEDS: POLYETHYLENE GLYCOL 3350 17 GM POWD.PACK GT SCH (08:43)
[2022-01-06] MEDS: PANTOPRAZOLE 40 MG/PACK PACK GT SCH (08:43)
[2022-01-06] MEDS: SEVELAMER CARBONATE 800 MG POWD.PACK GT SCH ×3 (08:43→16:01)
[2022-01-06] MEDS: PROSOURCE / PROSTAT (PYXIS) 30 ML UDC GT SCH (08:43)
[2022-01-06] MEDS: CHLORHEXIDINE GLUCONATE 15 ML UDC MM SCH ×2 (08:43→20:09)
[2022-01-06] MEDS: ASCORBIC ACID 500 MG TABLET GT SCH (08:43)
[2022-01-06] MEDS: VIT B CMPLX 3/FA/VIT C/BIOTIN 1 TAB TABLET GT SCH (08:43)
[2022-01-06] MEDS: METOPROLOL TARTRATE 25 MG TABLET GT SCH ×2 (08:44→20:08)
[2022-01-06] MEDS: ESCITALOPRAM OXALATE (10 MG) 10 MG TABLET GT SCH (08:44)
[2022-01-06] MEDS: LOSARTAN POTASSIUM 50 MG TABLET GT SCH ×2 (08:44→16:02)
[2022-01-06] MEDS: LEVOTHYROXINE SODIUM 88 MCG TABLET GT SCH (08:44)
[2022-01-06] MEDS: INSULIN REGULAR, HUMAN 100 UNIT/ML 3 ML VIAL SQ PRN (08:49)
[2022-01-06] MEDS: ZINC OXIDE 56.7 GM TUBE TP SCH (09:00)
[2022-01-06] MEDS: CLOTRIMAZOLE 1% 15 GM TUBE TP SCH ×2 (09:00→16:02)
[2022-01-06] MEDS: AMLODIPINE BESYLATE 10 MG TABLET GT SCH (10:47)
[2022-01-06] MEDS: hydrALAZINE HCL 25 MG TABLET PO SCH ×2 (12:12→20:24)
[2022-01-06] MEDS: CEFEPIME 1 GM in IV D5W 50 ML IV SCH (17:00)
[2022-01-06] MEDS: NEPRO 1,000 ML BOTTLE GT PRN (17:08)
[2022-01-06 18:14] LABS: HEMOGLOBIN 9.2 g/dL (11.5-14.8)
[2022-01-06] MEDS: OLANZAPINE 2.5 MG TABLET GT SCH (21:07)
[2022-01-06] MEDS: DOCUSATE SODIUM LIQ 100 MG/10 ML UDC GT SCH (21:07)
[2022-01-06] MEDS: *INSULIN REGULAR(HUMULIN R)HUM 100 UNIT/ML VIAL SQ PRN (21:17)
[2022-01-06] MEDS: INSULIN GLARGINE, 100 UNIT/ML CARTRIDGE SQ SCH (21:18)
[2022-01-07] VITALS (7 sets, daily range): BP systolic 143–167; BP diastolic 61–74
[2022-01-07] MEDS: hydrALAZINE HCL 25 MG TABLET PO SCH ×3 (04:31→22:16)
[2022-01-07] MEDS: BLOOD SUGAR DIAGNOSTIC 1 EACH STRIP VI SCH ×4 (08:01→22:37)
[2022-01-07] MEDS: *INSULIN REGULAR(HUMULIN R)HUM 100 UNIT/ML VIAL SQ PRN ×2 (08:02→23:02)
[2022-01-07] MEDS: LEVOTHYROXINE SODIUM 88 MCG TABLET GT SCH (08:18)
[2022-01-07] MEDS: POLYETHYLENE GLYCOL 3350 17 GM POWD.PACK GT SCH (08:18)
[2022-01-07] MEDS: SEVELAMER CARBONATE 800 MG POWD.PACK GT SCH ×3 (08:18→16:53)
[2022-01-07] MEDS: CHLORHEXIDINE GLUCONATE 15 ML UDC MM SCH ×2 (08:18→22:21)
[2022-01-07] MEDS: PANTOPRAZOLE 40 MG/PACK PACK GT SCH (08:18)
[2022-01-07] MEDS: METOPROLOL TARTRATE 25 MG TABLET GT SCH ×2 (08:20→22:16)
[2022-01-07] MEDS: VIT B CMPLX 3/FA/VIT C/BIOTIN 1 TAB TABLET GT SCH (08:21)
[2022-01-07] MEDS: LOSARTAN POTASSIUM 50 MG TABLET GT SCH ×2 (08:21→16:53)
[2022-01-07] MEDS: ESCITALOPRAM OXALATE (10 MG) 10 MG TABLET GT SCH (08:21)
[2022-01-07] MEDS: ASCORBIC ACID 500 MG TABLET GT SCH (08:21)
[2022-01-07] MEDS: AMLODIPINE BESYLATE 10 MG TABLET GT SCH (08:22)
[2022-01-07] MEDS: PROSOURCE / PROSTAT (PYXIS) 30 ML UDC GT SCH (08:22)
[2022-01-07] MEDS: ZINC OXIDE 56.7 GM TUBE TP SCH (08:23)
[2022-01-07] MEDS: CLOTRIMAZOLE 1% 15 GM TUBE TP SCH ×2 (08:23→16:54)
[2022-01-07 10:36] LABS: BASOPHILS # (AUTO) 0.1 K/uL (0.0-0.2); BASOPHILS % (AUTO) 0.3 % (0.0-2.0); EOSINOPHILS % (AUTO) 9.9 % (0.0-6.0); HEMATOCRIT 29 % (33-45); HEMOGLOBIN 9.2 g/dL (11.5-14.8); LYMPHOCYTES # (AUTO) 3.3 K/uL (0.8-4.8); LYMPHOCYTES % (AUTO) 16.2 % (20.0-44.0); MEAN CORPUSCULAR HGB CONC 32 g/dl (31.0-36.0); MEAN CORPUSCULAR VOLUME 102 fL (82-100); MONOCYTES # (AUTO) 1.6 K/uL (0.1-1.30); MONOCYTES % (AUTO) 7.7 % (2.0-12.0); NEUTROPHILS # (AUTO) 13.3 K/uL (1.8-8.9); NEUTROPHILS % (AUTO) 65.9 % (43.0-81.0); PLATELET COUNT (AUTO) 396 K/uL (150-450); WHITE BLOOD COUNT (AUTO) 20.1 K/uL (4.3-11.0)
[2022-01-07 10:37] LABS: CALCIUM, SERUM 9.5 mg/dL (8.5-10.1); CARBON DIOXIDE 26 mmol/L (21-32); CHLORIDE 101 mmol/L (98-107); CREATININE 3.9 mg/dL (0.6-1.3); GLUCOSE 150 mg/dL (74-106); POTASSIUM 4.1 mmol/L (3.5-5.1); SODIUM SERUM 139 mmol/L (136-145); UREA NITROGEN, BLOOD 63 mg/dL (7-18)
[2022-01-07] MEDS: INSULIN REGULAR, HUMAN 100 UNIT/ML 3 ML VIAL SQ PRN ×2 (12:52→17:47)
[2022-01-07] MEDS: NEPRO 1,000 ML BOTTLE GT PRN (15:09)
[2022-01-07] MEDS: CEFEPIME 1 GM in IV D5W 50 ML IV SCH (18:12)
[2022-01-07] MEDS: DOCUSATE SODIUM LIQ 100 MG/10 ML UDC GT SCH (22:15)
[2022-01-07] MEDS: OLANZAPINE 2.5 MG TABLET GT SCH (22:15)
[2022-01-07] MEDS: INSULIN GLARGINE, 100 UNIT/ML CARTRIDGE SQ SCH (23:01)
[2022-01-08] VITALS: BP 160/50
[2022-01-08 04:00] VITALS: BP 162/57
[2022-01-08] MEDS: hydrALAZINE HCL 25 MG TABLET PO SCH ×3 (06:12→21:00)
[2022-01-08] MEDS: BLOOD SUGAR DIAGNOSTIC 1 EACH STRIP VI SCH ×4 (07:30→22:32)
[2022-01-08 08:00] VITALS: BP 163/65
[2022-01-08] MEDS: LOSARTAN POTASSIUM 50 MG TABLET GT SCH ×2 (09:35→16:52)
[2022-01-08] MEDS: ASCORBIC ACID 500 MG TABLET GT SCH (09:35)
[2022-01-08] MEDS: POLYETHYLENE GLYCOL 3350 17 GM POWD.PACK GT SCH (09:35)
[2022-01-08] MEDS: VIT B CMPLX 3/FA/VIT C/BIOTIN 1 TAB TABLET GT SCH (09:36)
[2022-01-08] MEDS: LEVOTHYROXINE SODIUM 88 MCG TABLET GT SCH (09:36)
[2022-01-08] MEDS: AMLODIPINE BESYLATE 10 MG TABLET GT SCH (09:36)
[2022-01-08] MEDS: METOPROLOL TARTRATE 25 MG TABLET GT SCH ×2 (09:37→21:56)
[2022-01-08] MEDS: ESCITALOPRAM OXALATE (10 MG) 10 MG TABLET GT SCH (09:37)
[2022-01-08] MEDS: PANTOPRAZOLE 40 MG/PACK PACK GT SCH (09:37)
[2022-01-08] MEDS: SEVELAMER CARBONATE 800 MG POWD.PACK GT SCH ×3 (09:38→16:52)
[2022-01-08] MEDS: CLOTRIMAZOLE 1% 15 GM TUBE TP SCH ×2 (09:42→17:46)
[2022-01-08] MEDS: CHLORHEXIDINE GLUCONATE 15 ML UDC MM SCH ×2 (09:42→21:56)
[2022-01-08] MEDS: ZINC OXIDE 56.7 GM TUBE TP SCH (09:42)
[2022-01-08] MEDS: PROSOURCE / PROSTAT (PYXIS) 30 ML UDC GT SCH (10:00)
[2022-01-08 11:36] LABS: CALCIUM, SERUM 10.2 mg/dL (8.5-10.1); CARBON DIOXIDE 25 mmol/L (21-32); CHLORIDE 100 mmol/L (98-107); CREATININE 4.7 mg/dL (0.6-1.3); GLUCOSE 132 mg/dL (74-106); POTASSIUM 4.4 mmol/L (3.5-5.1); SODIUM SERUM 138 mmol/L (136-145)
[2022-01-08 12:00] VITALS: BP 153/60
[2022-01-08 12:15] LABS: UREA NITROGEN, BLOOD 81 mg/dL (7-18)
[2022-01-08] MEDS: INSULIN REGULAR, HUMAN 100 UNIT/ML 3 ML VIAL SQ PRN ×2 (12:27→22:34)
[2022-01-08 12:56] LABS: BASOPHILS # (AUTO) 0.1 K/uL (0.0-0.2); BASOPHILS % (AUTO) 0.6 % (0.0-2.0); EOSINOPHILS % (AUTO) 9.4 % (0.0-6.0); HEMATOCRIT 29 % (33-45); HEMOGLOBIN 9.2 g/dL (11.5-14.8); LYMPHOCYTES # (AUTO) 2.1 K/uL (0.8-4.8); LYMPHOCYTES % (AUTO) 15.7 % (20.0-44.0); MEAN CORPUSCULAR HGB CONC 31 g/dl (31.0-36.0); MEAN CORPUSCULAR VOLUME 99 fL (82-100); MONOCYTES % (AUTO) 7.8 % (2.0-12.0); NEUTROPHILS # (AUTO) 8.8 K/uL (1.8-8.9); NEUTROPHILS % (AUTO) 66.5 % (43.0-81.0); PLATELET COUNT (AUTO) 446 K/uL (150-450); RED BLOOD CELL COUNT(AUTO) 2.94 MIL/uL (4.0-5.2); WHITE BLOOD COUNT (AUTO) 13.2 K/uL (4.3-11.0)
[2022-01-08] MEDS: EPOETIN ALFA-EPBX 10,000 UNIT/ML VIAL SQ SCH (14:32)
[2022-01-08 16:00] VITALS: BP 118/67
[2022-01-08] MEDS: NEPRO 1,000 ML BOTTLE GT PRN (16:59)
[2022-01-08] MEDS: CEFEPIME 1 GM in IV D5W 50 ML IV SCH (18:17)
[2022-01-08 20:00] VITALS: BP 147/65
[2022-01-08] MEDS: OLANZAPINE 2.5 MG TABLET GT SCH (21:55)
[2022-01-08] MEDS: DOCUSATE SODIUM LIQ 100 MG/10 ML UDC GT SCH (21:55)
[2022-01-08] MEDS: INSULIN GLARGINE, 100 UNIT/ML CARTRIDGE SQ SCH (22:32)
[2022-01-08 23:26] LABS: BILIRUBIN,DIRECT 0.1 mg/dL (0.0-0.2); BILIRUBIN,TOTAL 0.2 mg/dL (0.2-1.0)
[2022-01-09] VITALS: BP 149/54
[2022-01-09 04:00] VITALS: BP 130/59
[2022-01-09] MEDS: hydrALAZINE HCL 25 MG TABLET PO SCH (05:00)
[2022-01-09 06:28] LABS: BASOPHILS # (AUTO) 0.1 K/uL (0.0-0.2); BASOPHILS % (AUTO) 0.6 % (0.0-2.0); EOSINOPHILS % (AUTO) 11.5 % (0.0-6.0); HEMATOCRIT 28 % (33-45); HEMOGLOBIN 9.1 g/dL (11.5-14.8); LYMPHOCYTES # (AUTO) 2.1 K/uL (0.8-4.8); LYMPHOCYTES % (AUTO) 16.6 % (20.0-44.0); MEAN CORPUSCULAR HGB CONC 32 g/dl (31.0-36.0); MEAN CORPUSCULAR VOLUME 99 fL (82-100); MONOCYTES # (AUTO) 0.9 K/uL (0.1-1.30); NEUTROPHILS # (AUTO) 8.1 K/uL (1.8-8.9); NEUTROPHILS % (AUTO) 64.3 % (43.0-81.0); PLATELET COUNT (AUTO) 483 K/uL (150-450); RED BLOOD CELL COUNT(AUTO) 2.84 MIL/uL (4.0-5.2); WHITE BLOOD COUNT (AUTO) 12.6 K/uL (4.3-11.0)
[2022-01-09 07:22] LABS: CALCIUM, SERUM 9.8 mg/dL (8.5-10.1); CARBON DIOXIDE 26 mmol/L (21-32); CHLORIDE 100 mmol/L (98-107); CREATININE 5.1 mg/dL (0.6-1.3); GLUCOSE 172 mg/dL (74-106); MAGNESIUM 3.4 mg/dL (1.8-2.4); PHOSPHORUS 5.2 mg/dL (2.5-4.9); POTASSIUM 3.9 mmol/L (3.5-5.1); SODIUM SERUM 139 mmol/L (136-145)
[2022-01-09 07:32] LABS: UREA NITROGEN, BLOOD 86 mg/dL (7-18)
[2022-01-09 08:00] VITALS: BP 154/68
[2022-01-09] MEDS: VIT B CMPLX 3/FA/VIT C/BIOTIN 1 TAB TABLET GT SCH (08:41)
[2022-01-09] MEDS: METOPROLOL TARTRATE 25 MG TABLET GT SCH ×2 (08:41→21:55)
[2022-01-09] MEDS: PANTOPRAZOLE 40 MG/PACK PACK GT SCH (08:41)
[2022-01-09] MEDS: SEVELAMER CARBONATE 800 MG POWD.PACK GT SCH ×3 (08:42→16:24)
[2022-01-09] MEDS: POLYETHYLENE GLYCOL 3350 17 GM POWD.PACK GT SCH (08:42)
[2022-01-09] MEDS: LOSARTAN POTASSIUM 50 MG TABLET GT SCH ×2 (08:42→16:24)
[2022-01-09] MEDS: ESCITALOPRAM OXALATE (10 MG) 10 MG TABLET GT SCH (08:42)
[2022-01-09] MEDS: AMLODIPINE BESYLATE 10 MG TABLET GT SCH (08:42)
[2022-01-09] MEDS: CHLORHEXIDINE GLUCONATE 15 ML UDC MM SCH ×2 (08:43→21:54)
[2022-01-09] MEDS: ASCORBIC ACID 500 MG TABLET GT SCH (08:43)
[2022-01-09] MEDS: LEVOTHYROXINE SODIUM 88 MCG TABLET GT SCH (08:43)
[2022-01-09] MEDS: ZINC OXIDE 56.7 GM TUBE TP SCH (08:44)
[2022-01-09] MEDS: CLOTRIMAZOLE 1% 15 GM TUBE TP SCH ×2 (08:44→16:25)
[2022-01-09] MEDS: PROSOURCE / PROSTAT (PYXIS) 30 ML UDC GT SCH (08:45)
[2022-01-09] MEDS: BLOOD SUGAR DIAGNOSTIC 1 EACH STRIP VI SCH ×4 (08:54→21:55)
[2022-01-09] MEDS: INSULIN REGULAR, HUMAN 100 UNIT/ML 3 ML VIAL SQ PRN ×3 (08:56→17:27)
[2022-01-09 12:00] VITALS: BP 142/64
[2022-01-09] MEDS ORDERED: ALTEPLASE CATHFLO 2 MG/VIAL XX ONE (14:00)
[2022-01-09 16:00] VITALS: BP 156/70
[2022-01-09] MEDS: CEFEPIME 1 GM in IV D5W 50 ML IV SCH (16:51)
[2022-01-09] MEDS: NEPRO 1,000 ML BOTTLE GT PRN (18:08)
[2022-01-09 20:00] VITALS: BP 139/76
[2022-01-09] MEDS: DOCUSATE SODIUM LIQ 100 MG/10 ML UDC GT SCH (21:54)
[2022-01-09] MEDS: OLANZAPINE 2.5 MG TABLET GT SCH (21:55)
[2022-01-09] MEDS: INSULIN GLARGINE, 100 UNIT/ML CARTRIDGE SQ SCH (21:59)
[2022-01-09] MEDS: *INSULIN REGULAR(HUMULIN R)HUM 100 UNIT/ML VIAL SQ PRN (22:00)
[2022-01-10] VITALS: BP 151/52
[2022-01-10 04:00] VITALS: BP 107/52
[2022-01-10] MEDS: BLOOD SUGAR DIAGNOSTIC 1 EACH STRIP VI SCH ×3 (05:18→17:01)
[2022-01-10] MEDS: INSULIN REGULAR, HUMAN 100 UNIT/ML 3 ML VIAL SQ PRN ×3 (05:29→17:05)
[2022-01-10 07:19] LABS: ALANINE AMINOTRANSFERASE 12 U/L (12-78); ALBUMIN 2.2 g/dL (3.4-5.0); ALKALINE PHOSPHATASE 143 U/L (46-116); ASPARTATE AMINOTRANSFERASE 38 U/L (15-37); BILIRUBIN,TOTAL 0.3 mg/dL (0.2-1.0); CALCIUM, SERUM 9.9 mg/dL (8.5-10.1); CARBON DIOXIDE 25 mmol/L (21-32); CHLORIDE 101 mmol/L (98-107); GLUCOSE 172 mg/dL (74-106); MAGNESIUM 3.3 mg/dL (1.8-2.4); PHOSPHORUS 4.5 mg/dL (2.5-4.9); POTASSIUM 4.4 mmol/L (3.5-5.1); SODIUM SERUM 137 mmol/L (136-145); TOTAL PROTEIN, SERUM 8.1 g/dL (6.4-8.2); UREA NITROGEN, BLOOD 64 mg/dL (7-18)
[2022-01-10 07:42] LABS: BASOPHILS # (AUTO) 0.1 K/uL (0.0-0.2); BASOPHILS % (AUTO) 0.7 % (0.0-2.0); EOSINOPHILS % (AUTO) 11.9 % (0.0-6.0); HEMATOCRIT 30 % (33-45); HEMOGLOBIN 9.8 g/dL (11.5-14.8); LYMPHOCYTES # (AUTO) 2.1 K/uL (0.8-4.8); LYMPHOCYTES % (AUTO) 20.1 % (20.0-44.0); MEAN CORPUSCULAR HGB CONC 32 g/dl (31.0-36.0); MEAN CORPUSCULAR VOLUME 98 fL (82-100); MONOCYTES # (AUTO) 0.9 K/uL (0.1-1.30); MONOCYTES % (AUTO) 8.8 % (2.0-12.0); NEUTROPHILS % (AUTO) 58.5 % (43.0-81.0); PLATELET COUNT (AUTO) 427 K/uL (150-450); RED BLOOD CELL COUNT(AUTO) 3.08 MIL/uL (4.0-5.2); WHITE BLOOD COUNT (AUTO) 10.3 K/uL (4.3-11.0)
[2022-01-10 08:00] VITALS: BP 140/70
[2022-01-10] MEDS: METOPROLOL TARTRATE 25 MG TABLET GT SCH (09:00)
[2022-01-10] MEDS: AMLODIPINE BESYLATE 10 MG TABLET GT SCH (09:00)
[2022-01-10] MEDS: LOSARTAN POTASSIUM 50 MG TABLET GT SCH ×2 (09:00→16:52)
[2022-01-10] MEDS: CHLORHEXIDINE GLUCONATE 15 ML UDC MM SCH (09:08)
[2022-01-10] MEDS: ESCITALOPRAM OXALATE (10 MG) 10 MG TABLET GT SCH (09:08)
[2022-01-10] MEDS: POLYETHYLENE GLYCOL 3350 17 GM POWD.PACK GT SCH (09:08)
[2022-01-10] MEDS: VIT B CMPLX 3/FA/VIT C/BIOTIN 1 TAB TABLET GT SCH (09:08)
[2022-01-10] MEDS: ASCORBIC ACID 500 MG TABLET GT SCH (09:08)
[2022-01-10] MEDS: LEVOTHYROXINE SODIUM 88 MCG TABLET GT SCH (09:09)
[2022-01-10] MEDS: PANTOPRAZOLE 40 MG/PACK PACK GT SCH (09:09)
[2022-01-10] MEDS: PROSOURCE / PROSTAT (PYXIS) 30 ML UDC GT SCH (09:09)
[2022-01-10] MEDS: SEVELAMER CARBONATE 800 MG POWD.PACK GT SCH ×3 (09:13→16:52)
[2022-01-10] MEDS: CLOTRIMAZOLE 1% 15 GM TUBE TP SCH ×2 (09:28→17:01)
[2022-01-10] MEDS: ZINC OXIDE 56.7 GM TUBE TP SCH (09:28)
[2022-01-10 12:00] VITALS: BP 140/71
[2022-01-10] MEDS: EPOETIN ALFA-EPBX 10,000 UNIT/ML VIAL SQ SCH (15:26)
[2022-01-10 16:00] VITALS: BP 141/63
[2022-01-10 16:52] VITALS: BP 141/63
[2022-01-10] MEDS: CEFEPIME 1 GM in IV D5W 50 ML IV SCH (18:13)
== END 2022-01-10 19:08 | DRG 682 ==
LOC: ER 16:01 → TELE1 23:24
PROVIDERS: ADMIT Internal Medicine
PROC: 5A1955Z Respiratory Ventilation, Greater than 96 Consecutive Hours (ICD-10-PCS; principal; 2022-01-03)
PROC: 30233N1 Transfusion of Nonautologous Red Blood Cells into Peripheral Vein, Percutaneous Approach (ICD-10-PCS; 2022-01-03)
PROC: 5A1D70Z Performance of Urinary Filtration, Intermittent, Less than 6 Hours Per Day (ICD-10-PCS; 2022-01-05)
PROC: 05H533Z Insertion of Infusion Device into Right Subclavian Vein, Percutaneous Approach (ICD-10-PCS; 2022-01-10)
PROC: B546ZZA Ultrasonography of Right Subclavian Vein, Guidance (ICD-10-PCS; 2022-01-10)
DX: I12.0 Hypertensive chronic kidney disease with stage 5 chronic kidney disease or end stage renal disease (principal); N18.6 End stage renal disease; E43 Unspecified severe protein-calorie malnutrition; J18.9 Pneumonia, unspecified organism; J96.10 Chronic respiratory failure, unspecified whether with hypoxia or hypercapnia; Z99.11 Dependence on respirator [ventilator] status; G93.40 Encephalopathy, unspecified; E11.22 Type 2 diabetes mellitus with diabetic chronic kidney disease; Z86.73 Personal history of transient ischemic attack (TIA), and cerebral infarction without residual deficits; Z99.2 Dependence on renal dialysis; D63.1 Anemia in chronic kidney disease; E03.9 Hypothyroidism, unspecified; E78.5 Hyperlipidemia, unspecified; E88.09 Other disorders of plasma-protein metabolism, not elsewhere classified; L30.4 Erythema intertrigo; R13.10 Dysphagia, unspecified; Z79.01 Long term (current) use of anticoagulants; Z79.4 Long term (current) use of insulin; Z79.82 Long term (current) use of aspirin; Z79.84 Long term (current) use of oral hypoglycemic drugs; Z86.14 Personal history of Methicillin resistant Staphylococcus aureus infection; Z93.0 Tracheostomy status; Z93.1 Gastrostomy status; Z68.26 Body mass index [BMI] 26.0-26.9, adult; R19.5 Other fecal abnormalities
CPT/HCPCS: 31720; 36410; 36415; 71045-TC; 76700-TC; 80048-TC; 80053-TC; 80076-TC; 82247-TC; 82248-TC; 82272-TC; 82728-TC; 82962-TC; 83540-TC; 83605-TC; 83735-TC; 84100-TC; 85025-TC; 85027-TC; 85730-TC; 86850-TC; 87040-TC; 87081-TC; 90935-TC; 94003-TC; 94760-TC; 94762-TC; 94799-TC; C9803; G0378; J0692; J0885; J1644; J1815; J2270; J2997; J3490; J7030; J7050; J7060; P9016

== ENCOUNTER 2022-03-02 15:03 | Inpatient (IN) | payer MEDICARE, OTHER ==
[~2022-03-02] VITALS: Ht 165.1 cm; Wt 72.1 kg
[~2022-03-02 15:03] MED LIST changes: +ACET-2605 GT; +AMLO-212 GT; +INSU100V28 SQ; +PIPE2.257 IV; +VANC1PLA9 IV
--- NOTE | 2022-03-02 15:08 | NUR ---
NUBIAA RA99 "From Dialysis Center low BP after dialysis sbp 70". PLACED ON BED, OPENS EYES TO VERBAL STIMULI. WITH VASCULAR ACCESS AT L SUBCLAVIAN FOR DIALYSIS, G-TUBE INSITU, RECTAL TUBE.
[2022-03-02] MEDS ORDERED: CEFEPIME 1 GM in IV D5W 50 ML IV ONE (15:30)
[2022-03-02] MEDS ORDERED: VANCOMYCIN 1 GM in IV D5W 250 ML IV ONE (15:30)
--- NOTE | 2022-03-02 15:30 | NUR ---
WITH TRACHEAL TUBE SHILLE 7 XLT CONNECTED TO VENTILATOR FIO2 60%, TIDAL VOL.450, RATE 18, SATURATING AT 98%
[2022-03-02] MEDS ORDERED: IV NS 0.9% 1,000 ML BAG IV ONE (16:00)
--- NOTE | 2022-03-02 16:10 | NUR ---
X-RAY TECH AT BED SIDE
[2022-03-02] MEDS ORDERED: VANC500V GT (16:57)
--- NOTE | 2022-03-02 16:57 | NUR ---
RT Female patient awake and alert received in ER on aerosol, placed on vent per order. Leslie 7 XLT, trach tube is secure and airway is patent. Audible alarms and vent plugged into red outlet. Back up trach tube at bedside and ambu bag. Addendum: 03/02/22 at 1700 by JANES WATKINS RT Amended: Links added.
[2022-03-02] MEDS ORDERED: MELA3TAB41 GT (16:58)
[2022-03-02] MEDS ORDERED: NUT.237L67 PO (16:59)
--- NOTE | 2022-03-02 18:06 | NUR ---
DR SOUZA AT BED SIDE FOR CENTRAL LINE INSERTION
--- NOTE | 2022-03-02 18:24 | NUR ---
Female trach patient on aerosol placed on mechanical ventilator per order. Leslie 7 XLT midline and airway is patent. Audible alarms and vent plugged into red outlet. Backup trach tube and ambu bag at bedside. Addendum: 03/02/22 at 1828 by JANES WATKINS RT Amended: Links added.
[2022-03-02] MEDS ORDERED: IV NS 0.9% 1,000 ML IV ONE (19:00)
--- NOTE | 2022-03-02 19:25 | NUR ---
CENTRAL LINE INSITU AT RIGHT FEMORAL. BLOOD DRAWN AND SENT TO LAB
--- NOTE | 2022-03-02 19:48 | NUR ---
Followed up with lab regarding blood. pt was hard stick. blood just collected during central line insertion
[2022-03-02 20:07] LABS: BASOPHILS % (AUTO) 0.1 % (0.0-2.0); EOSINOPHILS % (AUTO) 0.1 % (0.0-6.0); HEMATOCRIT 37 % (33-45); HEMOGLOBIN 11.3 g/dL (11.5-14.8); LYMPHOCYTES # (AUTO) 0.8 K/uL (0.8-4.8); MEAN CORPUSCULAR HGB CONC 31 g/dl (31.0-36.0); MEAN CORPUSCULAR VOLUME 94 fL (82-100); MONOCYTES # (AUTO) 0.5 K/uL (0.1-1.30); MONOCYTES % (AUTO) 2.2 % (2.0-12.0); NEUTROPHILS # (AUTO) 19.3 K/uL (1.8-8.9); NEUTROPHILS % (AUTO) 93.6 % (43.0-81.0); PLATELET COUNT (AUTO) 283 K/uL (150-450); RED BLOOD CELL COUNT(AUTO) 3.94 MIL/uL (4.0-5.2); WHITE BLOOD COUNT (AUTO) 20.7 K/uL (4.3-11.0)
[2022-03-02 20:53] LABS: ALANINE AMINOTRANSFERASE 34 U/L (12-78); ALBUMIN 2.9 g/dL (3.4-5.0); ALKALINE PHOSPHATASE 142 U/L (46-116); ASPARTATE AMINOTRANSFERASE 119 U/L (15-37); BILIRUBIN,DIRECT 0.1 mg/dL (0.0-0.2); BILIRUBIN,TOTAL 0.5 mg/dL (0.2-1.0); CALCIUM, SERUM 9.1 mg/dL (8.5-10.1); CARBON DIOXIDE 20 mmol/L (21-32); CHLORIDE 99 mmol/L (98-107); CREATININE 2.7 mg/dL (0.6-1.3); GLUCOSE 240 mg/dL (74-106); POTASSIUM 3.7 mmol/L (3.5-5.1); SODIUM SERUM 137 mmol/L (136-145); UREA NITROGEN, BLOOD 26 mg/dL (7-18)
[2022-03-02] MEDS ORDERED: ENOXAPARIN SODIUM 80 MG/0.8 ML DISP.SYRIN SQ STA (21:02)
--- NOTE | 2022-03-02 21:08 | NUR ---
PT PROVIDED WITH CARE. PT WAS NOTED WITH WATTERY DIARRHEA. PT ALSO NOTED THAT RECTAL TUBE IS DISLODGE.
--- NOTE | 2022-03-02 21:27 | NUR ---
REPORT GIVEN TO JOHN CAAL FOR SALVATORE
[2022-03-02] MEDS ORDERED: ACETAMINOPHEN ES 500 MG TABLET GT PRN (21:30)
[2022-03-02] MEDS ORDERED: NEPRO VAN 237 ML CAN PO SCH (21:30)
[2022-03-02] MEDS ORDERED: ENOXAPARIN SODIUM 80 MG/0.8 ML DISP.SYRIN SQ ONE (21:30)
[2022-03-02] MEDS ORDERED: ALBUTEROL FS 2.5 MG/3 ML VIAL.NEB IH PRN (21:30)
[2022-03-02] MEDS ORDERED: Z GUARD REMEDY 4 OZ OINT TP PRN (22:00)
[2022-03-02] MEDS ORDERED: ONDANSETRON HCL/PF 4 MG/2 ML VIAL IVP PRN (22:00)
[2022-03-02] MEDS ORDERED: NOREPINEPHRINE 32 MG in IV NS 0.9% 218 ML IV PRN (22:00)
--- NOTE | 2022-03-02 22:08 | NUR ---
COVID SWAB DONE AND SENT TO LAB
[2022-03-02 22:41] LABS: BAND % (MANUAL) 2 % (0.0-5.0); LYMPHOCYTES % (MANUAL) 7 % (16-48); MONOCYTES % (MANUAL) 1 % (0-11.0); NEUTROPHILS % (MANUAL) 90 (42-76)
--- NOTE | 2022-03-02 22:57 | NUR ---
RT pt transferred to floor with no complications. vent plugged in to red outlet. ambu bag at bedside. alarms on and audible. will continue to monitor pt
--- NOTE | 2022-03-02 23:00 | NUR ---
ICU/RN: PT ARRIVED ON UNIT ACCOMPANIED BY ER STAFF AND RESPRITORY STAFF. VENT SETTINGS SEE FLOW SHEET. PT HEAVILY SOILED IN LOOSE STOOL. COMPLETE BED BATH GIVEN AND LINENS CHANGED. WOUNDS SEE FLOW SHEET. PICTURES TAKEN AND PLACED IN CHART. DRESSINGS REPLACED. WOUND CONSULT, [employer] [facility] MATRESS AND DIETARY CONSULT ORDERED. LEVOPHED STARTED ORDERED BY DR. VERA. SEE FLOW SHEET FOR PT ASSESSMENT. WILL CONTINUE TO MONITOR.
[2022-03-02 23:15] VITALS: BP 79/29
[2022-03-02 23:16] VITALS: BP 68/41
[2022-03-02] MEDS ORDERED: NOREPINEPHRINE 4 MG/4 ML AMPUL IV ONE (23:16)
[2022-03-02] MEDS: DOCUSATE SODIUM 100 MG CAPSULE PO SCH (23:20)
[2022-03-02 23:30] VITALS: BP 89/31
[2022-03-02] MEDS: IV NS 0.9% 1,000 ML IV PRN (23:31)
[2022-03-02 23:47] VITALS: BP 133/51
[2022-03-02] MEDS: FLUDROCORTISONE 0.1 MG TABLET GT SCH (23:47)
[2022-03-02] MEDS: OLANZAPINE 2.5 MG TABLET GT SCH (23:47)
[2022-03-02] MEDS: HYDROCORTISONE SOD SUCCINATE 100 MG/2 ML VIAL IV SCH (23:47)
[2022-03-03] VITALS (60 sets, daily range): BP systolic 84–167; BP diastolic 36–98
[2022-03-03] MEDS: INSULIN GLARGINE, 100 UNIT/ML CARTRIDGE SQ SCH ×2 (00:07→23:32)
--- NOTE | 2022-03-03 00:12 | NUR ---
MED NOTE: COLACE HELD PT HAVING EPISODES OF LARGE LIQUID STOOL. LANTUS HELD. NEED TO CLARIFY ORDER FOR TUBE FEEDING.
--- NOTE | 2022-03-03 02:08 | NUR ---
RT pt received on current vent settings, trached. no sob, resp distress. vent plugged in to red outlet. alarms on and audible. ambu bag at bedside. will continue to monitor.
--- NOTE | 2022-03-03 02:42 | NUR ---
ICU/RN: SPOKE WITH DR. CANTOR REGARDING CRITICAL TROP 1692. HE REFERED ME TO CALL HIDE WORKER CANAL DRIVER. I SPOKE WITH DR. MARTÍNEZ CRITICAL RESULT WAS EXPLAINED AND THE CURRENT TREATMENT PLAN FOR THE PT. HE TOLD ME TO WAIT FOR THE NEXT TROP RESULTS AND THE MEDICAL TEAM WILL TAKE CARE OF IT IN THE MORNING. WILL CONTINUE TO MONITOR THE PT CLOSELY.
[2022-03-03] MEDS: HYDROCORTISONE SOD SUCCINATE 100 MG/2 ML VIAL IV SCH ×3 (04:24→21:21)
[2022-03-03] MEDS: ACETAMINOPHEN 325 MG TABLET MC PRN ×2 (04:24→21:21)
[2022-03-03 05:02] LABS: BASOPHILS % (AUTO) 0.1 % (0.0-2.0); EOSINOPHILS % (AUTO) 0.1 % (0.0-6.0); HEMATOCRIT 39 % (33-45); HEMOGLOBIN 11.9 g/dL (11.5-14.8); LYMPHOCYTES # (AUTO) 2.2 K/uL (0.8-4.8); LYMPHOCYTES % (AUTO) 8.9 % (20.0-44.0); MEAN CORPUSCULAR HGB CONC 31 g/dl (31.0-36.0); MEAN CORPUSCULAR VOLUME 92 fL (82-100); MONOCYTES # (AUTO) 0.7 K/uL (0.1-1.30); NEUTROPHILS # (AUTO) 21.8 K/uL (1.8-8.9); NEUTROPHILS % (AUTO) 87.9 % (43.0-81.0); PLATELET COUNT (AUTO) 328 K/uL (150-450); RED BLOOD CELL COUNT(AUTO) 4.19 MIL/uL (4.0-5.2); WHITE BLOOD COUNT (AUTO) 24.8 K/uL (4.3-11.0)
[2022-03-03 05:30] LABS: CALCIUM, SERUM 9.1 mg/dL (8.5-10.1); CARBON DIOXIDE 19 mmol/L (21-32); CHLORIDE 100 mmol/L (98-107); CREATININE 3.1 mg/dL (0.6-1.3); GLUCOSE 153 mg/dL (74-106); MAGNESIUM 1.9 mg/dL (1.8-2.4); PHOSPHORUS 4.8 mg/dL (2.5-4.9); SODIUM SERUM 137 mmol/L (136-145); UREA NITROGEN, BLOOD 32 mg/dL (7-18)
[2022-03-03] MEDS: VANCOMYCIN 500 MG VIAL GT SCH ×2 (05:30)
[2022-03-03 05:39] LABS: CHOLESTEROL 185 mg/dL (<200); HDL CHOLESTEROL 23 mg/dL (40-60); LDL 109 mg/dL (0-99); TRIGLYCERIDES 325 mg/dL (30-150)
[2022-03-03] MEDS ORDERED: NEPRO 1,000 ML BOTTLE GT PRN (07:00)
[2022-03-03] MEDS ORDERED: VANCOMYCIN 500 MG in IV D5W 100 ML IV PRN (07:00)
--- NOTE | 2022-03-03 07:15 | NUR ---
ICU/RN: REPORT AND ENDORRSEMENT OF TROPONIN TO DARBY LOPEZ FOR CONT OF CARE.
[2022-03-03] MEDS: LEVOTHYROXINE SODIUM 88 MCG TABLET GT SCH (07:20)
--- NOTE | 2022-03-03 07:30 | NUR ---
RN NOTES PT FOUND SEMI FOWLERS DISPLAYING NO S/S OF DISTRESS, PT ENDORSES NO PAIN AND BILATERAL RISE AND FALL OF THE CHEST OBSERVED. L CHEST WALL HD CATH DRESSING IS CLEAN AND DRY. R FEM TRIP LUMEN DRESSING IS PATIENT AND INTACT. MITTEN FOUND ON R HAND. RECTAL TUBE IS BELOW PATIENT DRAINING BY GRAVITY. VSS, RN WILL MONITOR AND TREAT THROUGHOUT SHIFT. SAFETY MEASURES IN PLACE, BED LOCKED AND IN LOWEST POSITION, SIDE RAILS UPX2, CALL LIGHT WITHIN REACH, BED ALARM ARMED.
--- NOTE | 2022-03-03 08:00 | NUR ---
MD VISIT DR CORDERO VISITED PATIENT, PERFORMED ASSESSMENT. RN INFORMED MD OF PT'S TROPONIN LEVEL. MD ACKNOWLEDGED, GAVE NO ORDERS AT TIME.
--- NOTE | 2022-03-03 08:03 | NUR ---
OXYGEN TITRATION FIO2 DECREASED FROM 40% TO 30% DUE TO 99% SPO2 Addendum: 03/03/22 at 0804 by ALIX KELLEY RT Amended: Links added.
[2022-03-03] MEDS: SEVELAMER CARBONATE 800 MG POWD.PACK GT SCH ×3 (08:51→17:29)
[2022-03-03] MEDS: PANTOPRAZOLE 40 MG/PACK PACK GT SCH (08:51)
[2022-03-03] MEDS: FLUDROCORTISONE 0.1 MG TABLET GT SCH (08:51)
[2022-03-03] MEDS: VIT B CMPLX 3/FA/VIT C/BIOTIN 1 TAB TABLET GT SCH (08:51)
[2022-03-03] MEDS ORDERED: CEFEPIME 1 GM in IV D5W 50 ML IV SCH (09:00)
[2022-03-03] MEDS: VANCOMYCIN HCL 125 MG/2.5 ML ORAL.SUSP GT SCH ×3 (12:00→23:30)
--- NOTE | 2022-03-03 12:00 | NUR ---
RN NOTE AMANDA TOUGH AFTER 1ST DOSE WAS 39. HOLDING EMILYO
[2022-03-03] MEDS ORDERED: HEPARIN SODIUM, PORCINE 5000 UNITS/1 ML VIAL IV ONE (13:30)
[2022-03-03] MEDS ORDERED: HEPARIN SODIUM, PORCINE 5000 UNITS/1 ML VIAL SQ ONE (13:30)
[2022-03-03] MEDS: HEPARIN INFUSION/D5W 500 ML IV PRN (13:54)
--- NOTE | 2022-03-03 16:33 | NUR ---
ANTOINE HERNANDEZ Addendum: 03/03/22 at 1634 by ALIX KELLEY RT Amended: Links added.
[2022-03-03] MEDS: CEFEPIME 1 GM in IV D5W 50 ML IV SCH (17:29)
[2022-03-03] MEDS ORDERED: DEXTROSE 50%-WATER 50 ML DISP.SYRIN IV PRN (18:00)
[2022-03-03] MEDS: BLOOD SUGAR DIAGNOSTIC 1 EACH STRIP IN SCH ×2 (18:15→23:29)
--- NOTE | 2022-03-03 19:05 | NUR ---
RN NOTES PT FOUND SEMI FOWLERS DISPLAYING NO S/S OF DISTRESS, PT ENDORSES NO PAIN AND BILATERAL RISE AND FALL OF THE CHEST OBSERVED. L CHEST WALL HD CATH DRESSING IS CLEAN AND DRY. R FEM TRIP LUMEN DRESSING IS PATIENT AND INTACT. MITTEN ON R HAND. RECTAL TUBE IS BELOW PATIENT DRAINING BY GRAVITY. SBAR AND REPORT GIVEN TO BIOMEDICAL EQUIPMENT TECHNICIAN RN, ALL QUESTIONS ANSWERED. SAFETY MEASURES IN PLACE, BED LOCKED AND IN LOWEST POSITION, SIDE RAILS UPX2, CALL LIGHT WITHIN REACH, BED ALARM ARMED. PT ENDORSED IN STABLE CONDITION FOR SALVATORE.
[2022-03-03] MEDS ORDERED: ENOXAPARIN SODIUM 30 MG/0.3 ML DISP.SYRIN SQ SCH (21:00)
[2022-03-03] MEDS: DOCUSATE SODIUM 100 MG CAPSULE PO SCH (21:17)
[2022-03-03] MEDS: OLANZAPINE 2.5 MG TABLET GT SCH (21:21)
--- NOTE | 2022-03-03 21:31 | NUR ---
MED NOTE: PTT 54.4 PER PROTOCOL NO CHANGE IN HEPARIN DRIP. WILL CHECK PTT AGAIN IN AM PER PROTOCOL.
[2022-03-03] MEDS: NEPRO 1,000 ML BOTTLE GT PRN (23:29)
[2022-03-03] MEDS: INSULIN REGULAR, HUMAN 100 UNIT/ML 3 ML VIAL SQ PRN (23:32)
--- NOTE | 2022-03-03 23:46 | NUR ---
ICU/RN: TUBE FEEDING STARTED ORDERED.
[2022-03-04] VITALS (21 sets, daily range): BP systolic 112–164; BP diastolic 56–109
[2022-03-04 04:54] LABS: BASOPHILS % (AUTO) 0.2 % (0.0-2.0); HEMATOCRIT 33 % (33-45); HEMOGLOBIN 10.3 g/dL (11.5-14.8); LYMPHOCYTES # (AUTO) 1.1 K/uL (0.8-4.8); LYMPHOCYTES % (AUTO) 7.4 % (20.0-44.0); MEAN CORPUSCULAR HGB CONC 32 g/dl (31.0-36.0); MEAN CORPUSCULAR VOLUME 91 fL (82-100); MONOCYTES # (AUTO) 0.4 K/uL (0.1-1.30); MONOCYTES % (AUTO) 2.3 % (2.0-12.0); NEUTROPHILS # (AUTO) 13.9 K/uL (1.8-8.9); NEUTROPHILS % (AUTO) 90.1 % (43.0-81.0); PLATELET COUNT (AUTO) 217 K/uL (150-450); RED BLOOD CELL COUNT(AUTO) 3.59 MIL/uL (4.0-5.2); WHITE BLOOD COUNT (AUTO) 15.4 K/uL (4.3-11.0)
--- NOTE | 2022-03-04 05:15 | NUR ---
MED NOTE: PTT 42.3 PER PROTOCOL INCREASE HEPARIN DRIP BY 100UNITS/HR CURRENTLY INFUSING @1045UNITS/HR. NET PTT IN 6 HOURS.
[2022-03-04 05:25] LABS: CALCIUM, SERUM 8.7 mg/dL (8.5-10.1); CARBON DIOXIDE 17 mmol/L (21-32); CHLORIDE 105 mmol/L (98-107); CREATININE 4.6 mg/dL (0.6-1.3); GLUCOSE 245 mg/dL (74-106); MAGNESIUM 1.9 mg/dL (1.8-2.4); PHOSPHORUS 6.3 mg/dL (2.5-4.9); POTASSIUM 4.1 mmol/L (3.5-5.1); SODIUM SERUM 140 mmol/L (136-145); UREA NITROGEN, BLOOD 51 mg/dL (7-18)
[2022-03-04] MEDS: HYDROCORTISONE SOD SUCCINATE 100 MG/2 ML VIAL IV SCH ×2 (05:29→17:42)
[2022-03-04] MEDS: BLOOD SUGAR DIAGNOSTIC 1 EACH STRIP IN SCH ×4 (05:29→23:50)
[2022-03-04] MEDS: VANCOMYCIN HCL 125 MG/2.5 ML ORAL.SUSP GT SCH ×4 (05:29→23:52)
[2022-03-04] MEDS: INSULIN REGULAR, HUMAN 100 UNIT/ML 3 ML VIAL SQ PRN ×4 (05:34→23:49)
[2022-03-04] MEDS: LEVOTHYROXINE SODIUM 88 MCG TABLET GT SCH (06:16)
--- NOTE | 2022-03-04 08:00 | NUR ---
RN NOTE HD START
[2022-03-04] MEDS: SEVELAMER CARBONATE 800 MG POWD.PACK GT SCH ×3 (08:10→16:24)
[2022-03-04] MEDS: VIT B CMPLX 3/FA/VIT C/BIOTIN 1 TAB TABLET GT SCH (08:10)
[2022-03-04] MEDS: FLUDROCORTISONE 0.1 MG TABLET GT SCH (08:10)
[2022-03-04] MEDS: PANTOPRAZOLE 40 MG/PACK PACK GT SCH (08:10)
--- NOTE | 2022-03-04 08:30 | NUR ---
MD VISIT DR CORDERO ATTENDED PATIENT, PERFORMED ASSESSMENT, ASKED QUESTIONS. MD GAVE ORDERS.
--- NOTE | 2022-03-04 09:57 | NUR ---
PHARMACY CALL PHARMACY INFORMED RN TO ROUND HEPARIN UP FROM 1045 TO 1050, "IT IS UNMEASURABLE". RN ACKNOWLEDGED AND WILL ROUND UP DIRECTED.
--- NOTE | 2022-03-04 10:00 | NUR ---
RN NOTE HD FINISHED, 500 ML REMOVED. NO DISTRESS, VS WNL.
[2022-03-04] MEDS ORDERED: LamoTRIgine 100 MG TABLET GT ONE (11:30)
[2022-03-04] MEDS: HEPARIN INFUSION/D5W 500 ML IV PRN (14:09)
[2022-03-04] MEDS: ACETAMINOPHEN 325 MG TABLET MC PRN (16:24)
[2022-03-04] MEDS: CEFEPIME 1 GM in IV D5W 50 ML IV SCH (17:40)
--- NOTE | 2022-03-04 18:40 | NUR ---
RN ANJANA NOTE RECEIVED PATIENT FROM ICU DOWNGRADE TO ANJANA ON MECHANICAL VENT SETTING SHILEY XL T TV:450 FIO2:305 AC 18 PEEP 5,ON HEPARIN DRIP 1100 UNIT/HR IV SITE IS ON RIGHT FEMORAL THREE LUMEN CATH,AND RIGHT HAND ,LEFT UPPER CHEST PERM CATH,INTACT PATENT,ON G-TUBE FEEDING NEPRO 45CC/HR CHECKED PLACEMENT IN PLACE NO RESIDUAL NOTED,SAFETY MEASURE IMPLEMENT BED IN LOW POSITION AND LOCKED,HEAD OF THE BED ELEVATED,CONTINUE TO MONITOR.
--- NOTE | 2022-03-04 19:27 | NUR ---
REPORT AND TRANSFER SBAR AND REPORT GIVEN TO HAKEEM RN AND ALSO DOWNGRADED. PT WAS TRANSPORTED VIA HOSPITAL BED ACCOMPANIED BY PRIMARY, SHIFT CHANGE RN AND RT. PT ON PORTABLE BEDSIDE MONITOR FOR TRANSPORT. NO COMPLICATIONS OCCURRED. CHART, SBAR, RX TRANSPORTED WITH PT. R FEM TRIP LUME N IS PATIENT AND INTACT. FLEXISEAL IS BELOW PATIENT DRAINING BY GRAVITY. HOB IS 30 DEGREES. PT ENDORSED IN STABLE CONDITION FOR SALVATORE.
[2022-03-04] MEDS: MUPIROCIN OINT 2% 22 GM TUBE NS SCH (20:14)
[2022-03-04] MEDS ORDERED: LamoTRIgine 100 MG TABLET GT SCH (21:00)
[2022-03-04] MEDS: OLANZAPINE 2.5 MG TABLET GT SCH (21:43)
[2022-03-04] MEDS: DOCUSATE SODIUM 100 MG CAPSULE PO SCH (21:43)
[2022-03-04] MEDS: INSULIN GLARGINE, 100 UNIT/ML CARTRIDGE SQ SCH (21:51)
[2022-03-05] VITALS: BP 145/65
--- NOTE | 2022-03-05 00:54 | NUR ---
RN NOTE PTT RESULT IS 41.6 PROTOCOL ADD 100 UNIT/HR STARTS HEPARIN 1200 UNIT/HR CONTINUE TO MONITOR
[2022-03-05] MEDS: NEPRO 1,000 ML BOTTLE GT PRN (02:15)
[2022-03-05 04:00] VITALS: BP 134/65
[2022-03-05] MEDS: HYDROCORTISONE SOD SUCCINATE 100 MG/2 ML VIAL IV SCH ×2 (04:05→17:34)
[2022-03-05] MEDS: VANCOMYCIN HCL 125 MG/2.5 ML ORAL.SUSP GT SCH ×3 (05:54→17:34)
[2022-03-05] MEDS: BLOOD SUGAR DIAGNOSTIC 1 EACH STRIP IN SCH ×3 (05:54→17:37)
[2022-03-05] MEDS: LEVOTHYROXINE SODIUM 88 MCG TABLET GT SCH (06:01)
[2022-03-05] MEDS: INSULIN REGULAR, HUMAN 100 UNIT/ML 3 ML VIAL SQ PRN ×3 (06:04→17:36)
--- NOTE | 2022-03-05 06:40 | NUR ---
RN NOTE PATIENT REMAINS ON MECHANICAL VENT ON HEPARIN DRIP 1200 UNIT/HR NO SOB NOT ACUTE DISTRESS NOTED,ALL DUE MEDS GIVEN MD ORDERED KEPT CLEAN AND DRY ALL THE TIME,REPOSITIONING EVERY 2 HOURS. ALL NEEDS MET ENDORSE NEXT COMING SHIFT FOR CONTINUATION OF CARE.
--- NOTE | 2022-03-05 07:00 | NUR ---
RN NOTE PATIENT APTT RESULT 56.9 ACCORDING NOT POLICY HEPARIN DRIP WILL CONTINUE IS NO CHANGE
[2022-03-05 07:11] LABS: HEMATOCRIT 32 % (33-45); HEMOGLOBIN 10.4 g/dL (11.5-14.8); LYMPHOCYTES # (AUTO) 1.2 K/uL (0.8-4.8); LYMPHOCYTES % (AUTO) 7.1 % (20.0-44.0); MEAN CORPUSCULAR HGB CONC 32 g/dl (31.0-36.0); MEAN CORPUSCULAR VOLUME 91 fL (82-100); MONOCYTES # (AUTO) 0.6 K/uL (0.1-1.30); MONOCYTES % (AUTO) 3.5 % (2.0-12.0); NEUTROPHILS # (AUTO) 14.6 K/uL (1.8-8.9); NEUTROPHILS % (AUTO) 89.4 % (43.0-81.0); PLATELET COUNT (AUTO) 208 K/uL (150-450); RED BLOOD CELL COUNT(AUTO) 3.54 MIL/uL (4.0-5.2); WHITE BLOOD COUNT (AUTO) 16.4 K/uL (4.3-11.0)
--- NOTE | 2022-03-05 07:37 | NUR ---
RN OPENING NOTE RECEIVED PATIENT FROM A/O 2 MOUTHING WORDS. ON MECHANICAL VENT SETTING SHILEY XL T TV:450 FIO2:305 AC 18 PEEP 5,ON HEPARIN DRIP 1200 UNIT/HR IV SITE IS ON RIGHT FEMORAL THREE LUMEN CATH,AND RIGHT HAND ,LEFT UPPER CHEST PERM CATH,INTACT PATENT,ON G-TUBE FEEDING NEPRO 45CC/HR CHECKED PLACEMENT IN PLACE NO RESIDUAL NOTED,SAFETY MEASURE IMPLEMENT BED IN LOW POSITION AND LOCKED,HEAD OF THE BED ELEVATED.
[2022-03-05 07:43] LABS: CALCIUM, SERUM 8.3 mg/dL (8.5-10.1); CARBON DIOXIDE 17 mmol/L (21-32); CHLORIDE 99 mmol/L (98-107); CREATININE 4.1 mg/dL (0.6-1.3); GLUCOSE 193 mg/dL (74-106); MAGNESIUM 1.9 mg/dL (1.8-2.4); PHOSPHORUS 4.6 mg/dL (2.5-4.9); POTASSIUM 3.6 mmol/L (3.5-5.1); SODIUM SERUM 137 mmol/L (136-145); UREA NITROGEN, BLOOD 55 mg/dL (7-18)
[2022-03-05 08:00] VITALS: BP 143/80
[2022-03-05] MEDS: SEVELAMER CARBONATE 800 MG POWD.PACK GT SCH ×3 (08:03→17:33)
[2022-03-05] MEDS: PANTOPRAZOLE 40 MG/PACK PACK GT SCH (08:03)
[2022-03-05] MEDS: VIT B CMPLX 3/FA/VIT C/BIOTIN 1 TAB TABLET GT SCH (08:04)
[2022-03-05] MEDS: MUPIROCIN OINT 2% 22 GM TUBE NS SCH ×2 (09:19→21:45)
[2022-03-05] MEDS ORDERED: HYDROGEL DRESSING 90 GM TUBE TP PRN (09:30)
[2022-03-05] MEDS: HYDROGEL DRESSING 90 GM TUBE TP SCH (09:30)
--- NOTE | 2022-03-05 09:31 | NUR ---
WOUND CARE CONSULT: PT PRESENTS WITH LEAKING RECTAL TUBE WITH LIQUID STOOL AND UNSTAGEABLE SACRAL PRESSURE ULCER, PRESENT ON ADMISSION. RECOMMENDATIONS MADE FOR SKIN PROTECTION AND WOUND CARE. DISCUSSED WITH NURSING STAFF AND SURGICAL P.A. FOR DR KOHANZADEH. MELENDEZ IN AGREEMENT WITH PLAN OF CARE. Addendum: 03/05/22 at 0932 by NATHALY FELIZ WNDNU Amended: Links added.
[2022-03-05 12:00] VITALS: BP 172/84
[2022-03-05] MEDS: HEPARIN INFUSION/D5W 500 ML IV PRN (12:14)
--- NOTE | 2022-03-05 15:44 | NUR ---
RN NOTE PATIENT NOTED TO BE BLEEDING FROM HD CATH INFORMED PROVIDER TS. WAS ORDERED TO HOLD HEPARIN DRIP X 1 HR. WILL FOLLOW ORDER
[2022-03-05 16:00] VITALS: BP_SYST 172; BP_SYST 175; BP_DIAS 77; BP_DIAS 84
--- NOTE | 2022-03-05 17:16 | NUR ---
RN NOTE RECEIVED ORDER BY TS FOR ELEVATED BP NORVASC 10MG GT DAILY ORDER PLACED.
[2022-03-05] MEDS: CEFEPIME 1 GM in IV D5W 50 ML IV SCH (17:33)
[2022-03-05] MEDS: AMLODIPINE BESYLATE 10 MG TABLET GT SCH (17:34)
--- NOTE | 2022-03-05 19:36 | NUR ---
RN CLOSING NOTE PATIENT A/O 2 MOUTHING WORDS. ON MECHANICAL VENT SETTING SHILEY XL T TV:450 FIO2:305 AC 18 PEEP 5,ON HEPARIN DRIP 1200 UNIT/HR IV SITE IS ON RIGHT FEMORAL THREE LUMEN CATH,AND RIGHT HAND ,LEFT UPPER CHEST PERM CATH,INTACT PATENT,ON G-TUBE FEEDING NEPRO 45CC/HR CHECKED PLACEMENT IN PLACE NO RESIDUAL NOTED. FLEXI SEAL IN PLACE. SAFETY MEASURE IMPLEMENT BED IN LOW POSITION AND LOCKED,HEAD OF THE BED ELEVATED. WILL ENDORSE TO NIGHT NURSE FOR SALVATORE.
[2022-03-05 20:00] VITALS: BP 144/59
--- NOTE | 2022-03-05 20:00 | NUR ---
RN NOTE RECEIVED PT IN BED, WITH TRACH ON VENT, PT AWAKE. NOT IN ANY DISTRESS. TELE MONITOR SHOWS SR HR 78. GT PATENT AND IN PLACE, ON NEPRO FEEDING, NO RESIDUALS WERE NOTED. ON HEPARIN DRIP AT 1200U/HR, NO ACTIVE BLEEDING NOTED AT THIS TIME, MILD BLEED NOTED ON HD CATH DRESSING, WHICH WAS NOTED EARLIER BY AM SHIFT NURSE. R. HAND MITTENS IN PLACE. GOOD CIRCULATION. RECTAL TUBE IN PLACE. WILL CONTINUE TO MONITOR.
[2022-03-05] MEDS: DOCUSATE SODIUM LIQ 100 MG/10 ML UDC GT SCH (22:00)
[2022-03-05] MEDS: OLANZAPINE 2.5 MG TABLET GT SCH (22:41)
[2022-03-05] MEDS: INSULIN GLARGINE, 100 UNIT/ML CARTRIDGE SQ SCH (22:47)
[2022-03-06] VITALS: BP 123/48
[2022-03-06] MEDS: VANCOMYCIN HCL 125 MG/2.5 ML ORAL.SUSP GT SCH ×5 (00:24→23:11)
[2022-03-06] MEDS: BLOOD SUGAR DIAGNOSTIC 1 EACH STRIP IN SCH ×5 (00:31→23:50)
[2022-03-06] MEDS: INSULIN REGULAR, HUMAN 100 UNIT/ML 3 ML VIAL SQ PRN ×4 (00:33→23:53)
[2022-03-06 04:00] VITALS: BP 101/38
[2022-03-06] MEDS: NEPRO 1,000 ML BOTTLE GT PRN (05:02)
[2022-03-06] MEDS: HYDROCORTISONE SOD SUCCINATE 100 MG/2 ML VIAL IV SCH ×2 (05:38→17:19)
[2022-03-06] MEDS: LEVOTHYROXINE SODIUM 88 MCG TABLET GT SCH (06:37)
--- NOTE | 2022-03-06 07:15 | NUR ---
RN NOTE PT ABLE TO NOD TO SOME COMMANDS. NONVERBAL. CONTINUE WITH VENT SETTINGS, NO DISTRESS WERE NOTED. REMAIN AFEBRILE. BP STABLE. TOLERATING GT FEEDING, KEPT HOB ELEVATED. NO RESIDUALS. CONTINUE ON HEPARIN DRIP AT 1200U/HR. AWAITING FOR PTT RESULTS, ENDORSED TO NEXT SHIFT NURSE FOR SALVATORE.
--- NOTE | 2022-03-06 07:30 | NUR ---
RN NOTES PT FOUND SEMI FOWLERS DISPLAYING NO S/S OF DISTRESS, FLACC = 0 AND BILATERAL RISE AND FALL OF THE CHEST OBSERVED. TELECOMMUNICATIONS FIELD TECHNICIAN RN REPORTED BLEED AT L CHEST WALL HD CATH, SURGICAL DRESSING OVER SITE, NO BLOOD OBSERVABLE. R MITTEN ON, PULSE PALPATED AT R RADIAL ARTERY. RECTAL TUBE INTACT, RESERVOIR BELOW PATIENT DRAINING BY GRAVITY. VSS, RN WILL MONITOR AND TREAT THROUGHOUT SHIFT. SAFETY MEASURES IN PLACE, BED LOCKED AND IN LOWEST POSITION, SIDE RAILS UPX2, CALL LIGHT WITHIN REACH, BED ALARM ARMED.
[2022-03-06 07:37] LABS: CARBON DIOXIDE 18 mmol/L (21-32); CHLORIDE 97 mmol/L (98-107); CREATININE 4.9 mg/dL (0.6-1.3); GLUCOSE 118 mg/dL (74-106); MAGNESIUM 1.9 mg/dL (1.8-2.4); PHOSPHORUS 5.2 mg/dL (2.5-4.9); POTASSIUM 3.2 mmol/L (3.5-5.1); SODIUM SERUM 134 mmol/L (136-145); UREA NITROGEN, BLOOD 78 mg/dL (7-18)
[2022-03-06 07:39] LABS: BASOPHILS % (AUTO) 0.1 % (0.0-2.0); EOSINOPHILS % (AUTO) 0.2 % (0.0-6.0); HEMATOCRIT 29 % (33-45); HEMOGLOBIN 9.4 g/dL (11.5-14.8); LYMPHOCYTES % (AUTO) 13.3 % (20.0-44.0); MEAN CORPUSCULAR HGB CONC 32 g/dl (31.0-36.0); MEAN CORPUSCULAR VOLUME 90 fL (82-100); MONOCYTES # (AUTO) 0.7 K/uL (0.1-1.30); MONOCYTES % (AUTO) 4.8 % (2.0-12.0); NEUTROPHILS % (AUTO) 81.6 % (43.0-81.0); PLATELET COUNT (AUTO) 187 K/uL (150-450); RED BLOOD CELL COUNT(AUTO) 3.24 MIL/uL (4.0-5.2); WHITE BLOOD COUNT (AUTO) 14.8 K/uL (4.3-11.0)
[2022-03-06 08:00] VITALS: BP 157/74
--- NOTE | 2022-03-06 09:00 | NUR ---
RN NOTE HD START
--- NOTE | 2022-03-06 09:00 | NUR ---
RN NOTE APTT IS 62.5, ACCORDING TO ALGORITHM, NO CHANGES NEEDED.
[2022-03-06] MEDS: PANTOPRAZOLE 40 MG/PACK PACK GT SCH (09:02)
[2022-03-06] MEDS: AMLODIPINE BESYLATE 10 MG TABLET GT SCH (09:02)
[2022-03-06] MEDS: VIT B CMPLX 3/FA/VIT C/BIOTIN 1 TAB TABLET GT SCH (09:02)
[2022-03-06] MEDS: SEVELAMER CARBONATE 800 MG POWD.PACK GT SCH ×3 (09:03→17:20)
[2022-03-06] MEDS: MUPIROCIN OINT 2% 22 GM TUBE NS SCH ×2 (09:03→21:26)
[2022-03-06] MEDS: HYDROGEL DRESSING 90 GM TUBE TP SCH (09:03)
--- NOTE | 2022-03-06 09:05 | NUR ---
MD COMMUNICATION RN INFORMED DNP JODY OF COAGULATION SURROUNDING PT'S HD CATH. DNP ACKNOWLEDGED AND GAVE NO ORDERS.
[2022-03-06] MEDS: HEPARIN INFUSION/D5W 500 ML IV PRN (10:47)
--- NOTE | 2022-03-06 11:34 | NUR ---
HAT RENOVATOR NOTES DC HEPARIN DRIP PER DR. CONSUELO WILSON IF OKAY WITH NEPHRO.
[2022-03-06 12:00] VITALS: BP 108/63
--- NOTE | 2022-03-06 13:15 | NUR ---
RN NOTE HD FINISHED, 2L OUT
[2022-03-06 16:00] VITALS: BP 117/46
[2022-03-06] MEDS: CEFEPIME 1 GM in IV D5W 50 ML IV SCH (17:19)
--- NOTE | 2022-03-06 19:28 | NUR ---
RN NOTES PT FOUND SEMI FOWLERS DISPLAYING NO S/S OF DISTRESS, FLACC = 0 AND BILATERAL RISE AND FALL OF THE CHEST OBSERVED. TEGADERM OVER HD CATH REPLACED DUE TO BLEED, MD AWARE. R MITTEN ON, PULSE PALPATED AT R RADIAL ARTERY. RECTAL TUBE INTACT, RESERVOIR BELOW PATIENT DRAINING BY GRAVITY. SBAR AND REPORT GIVEN TO SIDING INSTALLER, ALL QUESTIONS ANSWERED. SAFETY MEASURES IN PLACE, BED LOCKED AND IN LOWEST POSITION, SIDE RAILS UPX2, CALL LIGHT WITHIN REACH, BED ALARM ARMED. PT ENDORSED IN STABLE CONDITION FOR SALVATORE.
[2022-03-06 20:00] VITALS: BP 145/68
[2022-03-06] MEDS: DOCUSATE SODIUM LIQ 100 MG/10 ML UDC GT SCH (21:25)
[2022-03-06] MEDS: OLANZAPINE 2.5 MG TABLET GT SCH (21:26)
[2022-03-06] MEDS: INSULIN GLARGINE, 100 UNIT/ML CARTRIDGE SQ SCH (21:34)
--- NOTE | 2022-03-06 21:37 | NUR ---
ANJANA/NUDE MODEL STOOL SOFTENER HELD DUE TO PT HAS FLEXISEAL AND LARGE AMOUNT OF DIARRHEA. CRISTOPHER CONTINUE TO MONITOR THIS PT.
[2022-03-06] MEDS: IV NS 0.9% 1,000 ML IV PRN (22:00)
[2022-03-07] VITALS: BP 159/67
[2022-03-07] MEDS: IV NS 0.9% 1,000 ML IV PRN ×2 (00:42→05:46)
[2022-03-07 04:00] VITALS: BP 159/64
[2022-03-07] MEDS: HYDROCORTISONE SOD SUCCINATE 100 MG/2 ML VIAL IV SCH ×2 (05:17→17:20)
[2022-03-07] MEDS: VANCOMYCIN HCL 125 MG/2.5 ML ORAL.SUSP GT SCH ×4 (05:45→23:32)
[2022-03-07] MEDS: NEPRO 1,000 ML BOTTLE GT PRN (05:46)
[2022-03-07] MEDS: BLOOD SUGAR DIAGNOSTIC 1 EACH STRIP IN SCH ×3 (05:46→17:18)
[2022-03-07] MEDS: LEVOTHYROXINE SODIUM 88 MCG TABLET GT SCH (05:47)
--- NOTE | 2022-03-07 06:08 | NUR ---
ANJANA/SALES COMMUNICATIONS MANAGER MORNING BLOOD SUGAR IS 98, NO COVERAGE FOR THIS
[2022-03-07 06:54] LABS: CALCIUM, SERUM 8.8 mg/dL (8.5-10.1); CARBON DIOXIDE 22 mmol/L (21-32); CHLORIDE 100 mmol/L (98-107); CREATININE 3.6 mg/dL (0.6-1.3); GLUCOSE 99 mg/dL (74-106); POTASSIUM 3.5 mmol/L (3.5-5.1); SODIUM SERUM 136 mmol/L (136-145); UREA NITROGEN, BLOOD 51 mg/dL (7-18)
--- NOTE | 2022-03-07 07:30 | NUR ---
RN NOTES PT FOUND SEMI FOWLERS DISPLAYING NO S/S OF DISTRESS, FLACC = 0 AND BILATERAL RISE AND FALL OF THE CHEST OBSERVED. L CHEST WALL HD CATH HAS NO BLOOD OBSERVABLE. R MITTEN ON, PULSE PALPATED AT R RADIAL ARTERY. RECTAL TUBE INTACT, RESERVOIR BELOW PATIENT DRAINING BY GRAVITY. VSS, RN WILL MONITOR AND TREAT THROUGHOUT SHIFT. SAFETY MEASURES IN PLACE, BED LOCKED AND IN LOWEST POSITION, SIDE RAILS UPX2, CALL LIGHT WITHIN REACH, BED ALARM ARMED.
[2022-03-07 07:48] LABS: BASOPHILS % (AUTO) 0.1 % (0.0-2.0); EOSINOPHILS % (AUTO) 0.1 % (0.0-6.0); HEMATOCRIT 30 % (33-45); HEMOGLOBIN 9.8 g/dL (11.5-14.8); LYMPHOCYTES % (AUTO) 16.2 % (20.0-44.0); MEAN CORPUSCULAR HGB CONC 33 g/dl (31.0-36.0); MEAN CORPUSCULAR VOLUME 91 fL (82-100); MONOCYTES # (AUTO) 0.8 K/uL (0.1-1.30); MONOCYTES % (AUTO) 6.9 % (2.0-12.0); NEUTROPHILS # (AUTO) 9.4 K/uL (1.8-8.9); NEUTROPHILS % (AUTO) 76.7 % (43.0-81.0); PLATELET COUNT (AUTO) 197 K/uL (150-450); RED BLOOD CELL COUNT(AUTO) 3.26 MIL/uL (4.0-5.2); WHITE BLOOD COUNT (AUTO) 12.2 K/uL (4.3-11.0)
[2022-03-07 08:00] VITALS: BP 140/70
[2022-03-07] MEDS: VIT B CMPLX 3/FA/VIT C/BIOTIN 1 TAB TABLET GT SCH (08:55)
[2022-03-07] MEDS: AMLODIPINE BESYLATE 10 MG TABLET GT SCH (08:56)
[2022-03-07] MEDS: PANTOPRAZOLE 40 MG/PACK PACK GT SCH (08:56)
[2022-03-07] MEDS: SEVELAMER CARBONATE 800 MG POWD.PACK GT SCH ×3 (08:56→17:20)
[2022-03-07] MEDS: MUPIROCIN OINT 2% 22 GM TUBE NS SCH ×2 (08:57→22:11)
[2022-03-07] MEDS: HYDROGEL DRESSING 90 GM TUBE TP SCH (08:57)
[2022-03-07] MEDS: PROSOURCE / PROSTAT (PYXIS) 30 ML UDC GT SCH (09:53)
[2022-03-07 12:00] VITALS: BP 134/65
[2022-03-07] MEDS: INSULIN REGULAR, HUMAN 100 UNIT/ML 3 ML VIAL SQ PRN ×2 (12:52→22:29)
[2022-03-07 16:00] VITALS: BP 118/62
[2022-03-07] MEDS: CEFEPIME 1 GM in IV D5W 50 ML IV SCH (17:20)
--- NOTE | 2022-03-07 19:09 | NUR ---
RN NOTES PT FOUND SEMI FOWLERS DISPLAYING NO S/S OF DISTRESS, FLACC = 0 AND BILATERAL RISE AND FALL OF THE CHEST OBSERVED. L CHEST WALL HD CATH IS CLEAN AND DRY. R MITTEN ON, PULSE PALPATED AT R RADIAL ARTERY. RECTAL TUBE INTACT, RESERVOIR BELOW PATIENT DRAINING BY GRAVITY. SBAR AND REPORT GIVEN TO SHIPPING & RECEIVING LEAD, ALL QUESTIONS ANSWERED. SAFETY MEASURES IN PLACE, BED LOCKED AND IN LOWEST POSITION, SIDE RAILS UPX2, CALL LIGHT WITHIN REACH, BED ALARM ARMED. PT ENDORSED IN STABLE CONDITION FOR SALVATORE.
[2022-03-07 20:00] VITALS: BP 155/65
[2022-03-07] MEDS: DOCUSATE SODIUM LIQ 100 MG/10 ML UDC GT SCH (22:00)
[2022-03-07] MEDS: OLANZAPINE 2.5 MG TABLET GT SCH (22:12)
[2022-03-07] MEDS: INSULIN GLARGINE, 100 UNIT/ML CARTRIDGE SQ SCH (22:29)
[2022-03-08] VITALS: BP 148/76
[2022-03-08] MEDS: BLOOD SUGAR DIAGNOSTIC 1 EACH STRIP IN SCH ×4 (00:02→17:54)
[2022-03-08] MEDS: INSULIN REGULAR, HUMAN 100 UNIT/ML 3 ML VIAL SQ PRN ×4 (00:03→21:42)
[2022-03-08] MEDS: NEPRO 1,000 ML BOTTLE GT PRN ×2 (01:31→15:43)
[2022-03-08] MEDS: IV NS 0.9% 1,000 ML IV PRN ×2 (01:32→15:27)
[2022-03-08 04:00] VITALS: BP 142/63
[2022-03-08] MEDS: HYDROCORTISONE SOD SUCCINATE 100 MG/2 ML VIAL IV SCH ×2 (05:31→16:56)
[2022-03-08] MEDS: VANCOMYCIN HCL 125 MG/2.5 ML ORAL.SUSP GT SCH ×4 (05:50→21:24)
[2022-03-08] MEDS: LEVOTHYROXINE SODIUM 88 MCG TABLET GT SCH (05:50)
[2022-03-08 06:24] LABS: EOSINOPHILS % (AUTO) 0.3 % (0.0-6.0); HEMATOCRIT 30 % (33-45); HEMOGLOBIN 9.6 g/dL (11.5-14.8); LYMPHOCYTES # (AUTO) 2.1 K/uL (0.8-4.8); MEAN CORPUSCULAR HGB CONC 32 g/dl (31.0-36.0); MEAN CORPUSCULAR VOLUME 90 fL (82-100); MONOCYTES # (AUTO) 0.8 K/uL (0.1-1.30); MONOCYTES % (AUTO) 7.1 % (2.0-12.0); NEUTROPHILS # (AUTO) 8.5 K/uL (1.8-8.9); NEUTROPHILS % (AUTO) 74.6 % (43.0-81.0); PLATELET COUNT (AUTO) 206 K/uL (150-450); RED BLOOD CELL COUNT(AUTO) 3.33 MIL/uL (4.0-5.2); WHITE BLOOD COUNT (AUTO) 11.5 K/uL (4.3-11.0)
[2022-03-08 07:13] LABS: CARBON DIOXIDE 21 mmol/L (21-32); CHLORIDE 104 mmol/L (98-107); CREATININE 4.6 mg/dL (0.6-1.3); GLUCOSE 83 mg/dL (74-106); POTASSIUM 3.5 mmol/L (3.5-5.1); SODIUM SERUM 139 mmol/L (136-145); UREA NITROGEN, BLOOD 72 mg/dL (7-18)
--- NOTE | 2022-03-08 07:29 | NUR ---
RN OPENING NOTE PATIENT RECEIVED IN BED, AWAKE. PATIENT ON MECHANICAL VENTILATOR WITH FIO2 30% AND NO SIGNS OF LABORED BREATHING. FLEXI SEAL IN PLACE, PATENT. RIGHT HAND MITTEN IN PLACE. G TUBE IN PLACE RUNNING NEPRO AT 45CC/HR. RIGHT FEMORAL TLC RUNNING NS AT 75CC/HR IN PLACE AND LEFT CHEST WALL HD CATH IN PLACE. BED LOCKED AND IN LOWEST POSITION, CALL LIGHT WITHIN REACH, 3 SIDE RAILS UP. WILL CONTINUE TO MONITOR.
[2022-03-08 08:00] VITALS: BP 166/77
[2022-03-08] MEDS: PROSOURCE / PROSTAT (PYXIS) 30 ML UDC GT SCH (08:35)
[2022-03-08] MEDS: SEVELAMER CARBONATE 800 MG POWD.PACK GT SCH ×3 (08:35→16:56)
[2022-03-08] MEDS: VIT B CMPLX 3/FA/VIT C/BIOTIN 1 TAB TABLET GT SCH (08:35)
[2022-03-08] MEDS: PANTOPRAZOLE 40 MG/PACK PACK GT SCH (08:35)
[2022-03-08] MEDS: HYDROGEL DRESSING 90 GM TUBE TP SCH (08:36)
[2022-03-08] MEDS: MUPIROCIN OINT 2% 22 GM TUBE NS SCH ×2 (08:36→21:38)
[2022-03-08] MEDS: AMLODIPINE BESYLATE 10 MG TABLET GT SCH (08:45)
--- NOTE | 2022-03-08 08:45 | NUR ---
RN NOTE PATIENT SCHEDULED FOR HD TODAY. BP MEDS HELD AT THIS TIME.
[2022-03-08 12:00] VITALS: BP_SYST 157; BP_SYST 158; BP_DIAS 55; BP_DIAS 62
--- NOTE | 2022-03-08 14:00 | NUR ---
RN NOTE ATTEMPTED TO CALL BOTH EMERGENCY CONTACT AVAILABLE TO RECEIVE CONSENT FOR WOUND DEBRIMENT WITH GRANT BENITES. UNABLE TO REACH EITHER NUMBER OR TO LEAVE A VOICEMAIL. WILL CONTINUE TO MONITOR.
--- NOTE | 2022-03-08 14:25 | NUR ---
RN NOTE HD COMPLETED. PATIENT TOLERATED WELL, BP 136/60. 2,000CC REMOVED.
[2022-03-08 16:00] VITALS: BP 158/55
[2022-03-08] MEDS: CEFEPIME 1 GM in IV D5W 50 ML IV SCH (16:48)
--- NOTE | 2022-03-08 18:35 | NUR ---
RN CLOSING NOTE PATIENT REMAINS IN BED, AWAKE. PATIENT ON MECHANICAL VENTILATOR WITH FIO2 30% AND NO SIGNS OF LABORED BREATHING. FLEXI SEAL IN PLACE, PATENT. RIGHT HAND MITTEN IN PLACE, SKIN WARM AND INTACT. G TUBE IN PLACE RUNNING NEPRO AT 45CC/HR. RIGHT FEMORAL TLC RUNNING NS AT 75CC/HR IN PLACE AND LEFT CHEST WALL HD CATH IN PLACE. ALL NEEDS ATTENDED DURING SHIFT. BED LOCKED AND IN LOWEST POSITION, CALL LIGHT WITHIN REACH, 3 SIDE RAILS UP. WILL ENDORSE TO BLUE LINE OPERATOR NURSE.
[2022-03-08 20:00] VITALS: BP 158/55
[2022-03-08] MEDS: DOCUSATE SODIUM LIQ 100 MG/10 ML UDC GT SCH (21:23)
[2022-03-08] MEDS: OLANZAPINE 2.5 MG TABLET GT SCH (21:25)
[2022-03-08] MEDS: INSULIN GLARGINE, 100 UNIT/ML CARTRIDGE SQ SCH (21:40)
[2022-03-09] VITALS (7 sets, daily range): BP systolic 148–173; BP diastolic 53–81
[2022-03-09] MEDS: BLOOD SUGAR DIAGNOSTIC 1 EACH STRIP IN SCH ×4 (00:01→17:32)
[2022-03-09] MEDS: IV NS 0.9% 1,000 ML IV PRN ×2 (00:11→17:39)
--- NOTE | 2022-03-09 02:20 | NUR ---
RN notes Resting comfortably in bed with no distress noted. Breathing even and unlabored. Vent setting well tolerated. Alert with cognitive impairment , non verbal. No physical manifestation of pain or discomfort. No significant change of condition. Vital signs wnl. Kept clean and dry. Will endorse to next shift for continuity of care.
[2022-03-09] MEDS: VANCOMYCIN HCL 125 MG/2.5 ML ORAL.SUSP GT SCH ×3 (04:42→17:36)
[2022-03-09] MEDS: HYDROCORTISONE SOD SUCCINATE 100 MG/2 ML VIAL IV SCH ×2 (04:42→16:14)
[2022-03-09] MEDS: INSULIN REGULAR, HUMAN 100 UNIT/ML 3 ML VIAL SQ PRN ×4 (05:13→22:32)
[2022-03-09 06:07] LABS: CALCIUM, SERUM 8.6 mg/dL (8.5-10.1); CARBON DIOXIDE 23 mmol/L (21-32); CHLORIDE 100 mmol/L (98-107); CREATININE 3.1 mg/dL (0.6-1.3); GLUCOSE 150 mg/dL (74-106); POTASSIUM 3.6 mmol/L (3.5-5.1); SODIUM SERUM 135 mmol/L (136-145); UREA NITROGEN, BLOOD 43 mg/dL (7-18)
[2022-03-09 06:36] LABS: BASOPHILS % (AUTO) 0.1 % (0.0-2.0); EOSINOPHILS % (AUTO) 0.2 % (0.0-6.0); HEMATOCRIT 29 % (33-45); HEMOGLOBIN 9.6 g/dL (11.5-14.8); LYMPHOCYTES # (AUTO) 1.9 K/uL (0.8-4.8); MEAN CORPUSCULAR HGB CONC 33 g/dl (31.0-36.0); MEAN CORPUSCULAR VOLUME 90 fL (82-100); MONOCYTES # (AUTO) 0.8 K/uL (0.1-1.30); MONOCYTES % (AUTO) 6.9 % (2.0-12.0); NEUTROPHILS # (AUTO) 8.6 K/uL (1.8-8.9); NEUTROPHILS % (AUTO) 75.8 % (43.0-81.0); PLATELET COUNT (AUTO) 213 K/uL (150-450); RED BLOOD CELL COUNT(AUTO) 3.26 MIL/uL (4.0-5.2); WHITE BLOOD COUNT (AUTO) 11.3 K/uL (4.3-11.0)
--- NOTE | 2022-03-09 07:20 | NUR ---
RN OPENING NOTES RECEIVED PATIENT RESTING IN BED, NO SIGNS OF ACUTE DISTRESS NOTED. REMAINS ON VENT WITH SETTINGS TOLERATING WELL. NO SOB NOTED. ON TELE MONITOR SHOWING SR, HR IN THE 80'S. NOTED WITH IV ACCESS ON RIGHT FEMORAL AREA, WITH NS @ 75 ML/HR RUNNING. ALSO WITH HD CATH ON LEFT CHEST WALL, WITH DRESSING C/D/I. WITH G-TUBE INPLACE. CURRENTLY WITH NEPRO @45 ML/HR RUNNING, TOLERATING WELL, ASPIRATION PRECAUTIONS OBSERVED. HOB ELEVATED AT ALL TIMES. SAFETY MEASURE IN PLACE. BED IN LOWEST AND LOCKED POSITION, SR UP, CALL LIGHT PLACED WITHIN EASY REACH. WILL CONTINUE TO MONITOR PATIENT.
[2022-03-09] MEDS: LEVOTHYROXINE SODIUM 88 MCG TABLET GT SCH (07:56)
[2022-03-09] MEDS: PROSOURCE / PROSTAT (PYXIS) 30 ML UDC GT SCH (08:29)
[2022-03-09] MEDS: SEVELAMER CARBONATE 800 MG POWD.PACK GT SCH ×3 (08:30→16:13)
[2022-03-09] MEDS: PANTOPRAZOLE 40 MG/PACK PACK GT SCH (08:30)
[2022-03-09] MEDS: VIT B CMPLX 3/FA/VIT C/BIOTIN 1 TAB TABLET GT SCH (08:30)
[2022-03-09] MEDS: AMLODIPINE BESYLATE 10 MG TABLET GT SCH (08:30)
[2022-03-09] MEDS: MUPIROCIN OINT 2% 22 GM TUBE NS SCH ×2 (08:33→21:51)
[2022-03-09] MEDS: HYDROGEL DRESSING 90 GM TUBE TP SCH (08:34)
[2022-03-09] MEDS: NEPRO 1,000 ML BOTTLE GT PRN (17:46)
--- NOTE | 2022-03-09 18:43 | NUR ---
RN CLOSING NOTES PATIENT ASLEEP IN BED, EASILY AROUSED. NO SIGNS OF ACUTE DISTRESS NOTED. REMAINS ON VENT WITH THE FOLLOWING SETTINGS: AC 18, TC 450, FIO2 30%, PEEP 5, TRACH SHILEY #7 XLT, TOLERATED WELL. NO SOB NOTED. REMAINS ON TELE MONITOR WITH CURRENT RHYTHM OF SR, HR IN THE 80'S. NOTED WITH IV ACCESS ON RIGHT FEMORAL AREA, WITH NS @ 75 ML/HR RUNNING. ALSO WITH HD CATH ON LEFT CHEST WALL, WITH DRESSING C/D/I. WITH G-TUBE IN PLACE, NO RESIDUAL NOTED. WITH NEPRO @45 ML/HR RUNNING, TOLERATING WELL, ASPIRATION PRECAUTIONS OBSERVED. HOB ELEVATED AT ALL TIMES. SAFETY MEASURE IN PLACE. BED IN LOWEST AND LOCKED POSITION, SR UP, CALL LIGHT PLACED WITHIN EASY REACH. WILL ENDORSE TO NEXT SHIFT FOR CONTINUITY OF CARE.
[2022-03-09] MEDS: DOCUSATE SODIUM LIQ 100 MG/10 ML UDC GT SCH (21:52)
[2022-03-09] MEDS: OLANZAPINE 2.5 MG TABLET GT SCH (21:53)
[2022-03-09] MEDS: INSULIN GLARGINE, 100 UNIT/ML CARTRIDGE SQ SCH (22:25)
[2022-03-10] VITALS: BP 146/91
[2022-03-10] MEDS: VANCOMYCIN HCL 125 MG/2.5 ML ORAL.SUSP GT SCH ×4 (00:08→17:36)
[2022-03-10] MEDS: BLOOD SUGAR DIAGNOSTIC 1 EACH STRIP IN SCH ×4 (00:09→18:29)
[2022-03-10 04:00] VITALS: BP 153/80
[2022-03-10] MEDS: HYDROCORTISONE SOD SUCCINATE 100 MG/2 ML VIAL IV SCH ×2 (05:25→17:36)
[2022-03-10] MEDS: IV NS 0.9% 1,000 ML IV PRN ×2 (05:26→17:47)
[2022-03-10] MEDS: INSULIN REGULAR, HUMAN 100 UNIT/ML 3 ML VIAL SQ PRN ×2 (05:36→12:05)
[2022-03-10 06:38] LABS: BASOPHILS % (AUTO) 0.1 % (0.0-2.0); EOSINOPHILS % (AUTO) 0.5 % (0.0-6.0); HEMATOCRIT 28 % (33-45); HEMOGLOBIN 8.9 g/dL (11.5-14.8); LYMPHOCYTES # (AUTO) 2.6 K/uL (0.8-4.8); LYMPHOCYTES % (AUTO) 16.8 % (20.0-44.0); MEAN CORPUSCULAR HGB CONC 32 g/dl (31.0-36.0); MEAN CORPUSCULAR VOLUME 91 fL (82-100); MONOCYTES # (AUTO) 0.9 K/uL (0.1-1.30); NEUTROPHILS # (AUTO) 11.8 K/uL (1.8-8.9); NEUTROPHILS % (AUTO) 76.6 % (43.0-81.0); PLATELET COUNT (AUTO) 244 K/uL (150-450); RED BLOOD CELL COUNT(AUTO) 3.03 MIL/uL (4.0-5.2); WHITE BLOOD COUNT (AUTO) 15.5 K/uL (4.3-11.0)
[2022-03-10 07:03] LABS: CALCIUM, SERUM 8.6 mg/dL (8.5-10.1); CARBON DIOXIDE 21 mmol/L (21-32); CHLORIDE 101 mmol/L (98-107); CREATININE 3.9 mg/dL (0.6-1.3); GLUCOSE 114 mg/dL (74-106); POTASSIUM 3.3 mmol/L (3.5-5.1); SODIUM SERUM 137 mmol/L (136-145); UREA NITROGEN, BLOOD 64 mg/dL (7-18)
--- NOTE | 2022-03-10 07:23 | NUR ---
RN notes Alert, with eye contact, none verball, resting comfortably in bed with no distress noted. Vent setting well tolerated. Suctioned moderate amount of yellowish thin secretion. No physical manifestation of pain or discomfort. Vital signs wnl. No significant change of condition. Kept clean and dry. Will endorse to next shift for continuity of care.
--- NOTE | 2022-03-10 07:31 | NUR ---
RIG WELDER OPENING NOTE Patient in bed, awake; non-verbal but opens eyes. On mechanical ventilator tolerating current settings. No SOB or s/s of distress noted. IV access on Right femoral TLC infusing NS at 75 ml/hr. LCW HD cath noted. Flexiseal in place, intact. Soft wrist restraint on Right hand noted. G-tube in place running Nepro at 45 ml/hr. Safety precautions in place: bed in low, locked position; siderails up x 2; call light within reach. Will continue to monitor.
[2022-03-10 08:00] VITALS: BP 140/91
[2022-03-10] MEDS: LEVOTHYROXINE SODIUM 88 MCG TABLET GT SCH (09:40)
[2022-03-10] MEDS: AMLODIPINE BESYLATE 10 MG TABLET GT SCH (09:40)
[2022-03-10] MEDS: PROSOURCE / PROSTAT (PYXIS) 30 ML UDC GT SCH (09:40)
[2022-03-10] MEDS: VIT B CMPLX 3/FA/VIT C/BIOTIN 1 TAB TABLET GT SCH (09:40)
[2022-03-10] MEDS: PANTOPRAZOLE 40 MG/PACK PACK GT SCH (09:41)
[2022-03-10] MEDS: SEVELAMER CARBONATE 800 MG POWD.PACK GT SCH ×3 (09:42→17:36)
[2022-03-10] MEDS: MUPIROCIN OINT 2% 22 GM TUBE NS SCH ×2 (09:43→21:45)
[2022-03-10] MEDS: HYDROGEL DRESSING 90 GM TUBE TP SCH (09:43)
[2022-03-10 12:00] VITALS: BP 135/78
--- NOTE | 2022-03-10 15:13 | NUR ---
NA 114 AND K LEVER 3.0 notified to stated that consult to Darrelllyn [phone] informed to he will see him today Addendum: 03/10/22 at 1517 by ERIK BAILON RN wrong patient
[2022-03-10 16:00] VITALS: BP 149/68
[2022-03-10] MEDS: NEPRO 1,000 ML BOTTLE GT PRN (17:46)
--- NOTE | 2022-03-10 18:50 | NUR ---
INTEGRATION AIDE CLOSING NOTE Patient in bed, awake; non-verbal but opens eyes. On mechanical ventilator with the following settings: Shiley XLT; AC 18; TV 450; FiO2 30%; PEEP 5. No SOB or s/s of distress noted. IV access on Right femoral TLC infusing NS at 75 ml/hr. LCW HD cath noted. Flexiseal in place, intact. Soft wrist restraint on Right hand noted. G-tube in place running Nepro at 45 ml/hr. Due meds given. Wound care done, as ordered. Patient kept clean and dry. Safety precautions maintained: bed in low, locked position; siderails up x 2; call light within reach. Will endorse to scrum coach nurse for [facility]. Addendum: 03/10/22 at 1854 by MARY JO PRESLEY RN ADD: On tele monitoring showing SR, HR 81.
[2022-03-10 20:00] VITALS: BP 154/64
[2022-03-10] MEDS: DOCUSATE SODIUM LIQ 100 MG/10 ML UDC GT SCH (21:46)
[2022-03-10] MEDS: OLANZAPINE 2.5 MG TABLET GT SCH (21:47)
[2022-03-11] VITALS: BP 158/71
[2022-03-11] MEDS: INSULIN GLARGINE, 100 UNIT/ML CARTRIDGE SQ SCH ×2 (00:56→23:13)
[2022-03-11] MEDS: INSULIN REGULAR, HUMAN 100 UNIT/ML 3 ML VIAL SQ PRN ×4 (00:57→23:13)
[2022-03-11] MEDS: BLOOD SUGAR DIAGNOSTIC 1 EACH STRIP IN SCH ×5 (00:58→23:10)
[2022-03-11] MEDS: VANCOMYCIN HCL 125 MG/2.5 ML ORAL.SUSP GT SCH ×5 (00:59→23:46)
[2022-03-11 04:00] VITALS: BP 111/47
[2022-03-11] MEDS: HYDROCORTISONE SOD SUCCINATE 100 MG/2 ML VIAL IV SCH ×2 (04:27→18:30)
--- NOTE | 2022-03-11 05:57 | NUR ---
RN notes REsting comfortably in bed. Alert, with eye contact, none verbal, resting comfortably in bed with no distress noted. Vent setting well tolerated. Suctioned moderate amount of yellowish thin secretion. No physical manifestation of pain or discomfort. Vital signs wnl. Pulled out Femoral TLC, reinserted IV line to right hand #24. Good backflow noted. Procedure wiell tolerated. Needs midline IV insertion. No significant change of condition. Kept clean and dry. Will endorse to next shift for continuity of care.
[2022-03-11] MEDS: IV NS 0.9% 1,000 ML IV PRN (06:19)
--- NOTE | 2022-03-11 07:00 | NUR ---
DIE TURNER OPENING NOTES PATIENT IN BED, AWAKE, NON-VERBAL BUT TRACKS WITH EYES. TELE MONITOR READING SINUS RHYTHM 80. ON MECHANICAL VENTILATOR WITH THE FOLLOWING SETTINGS: SHILEY XLT; AC 18, TV 450, FiO2 30%, PEEP 5. NO SIGNS OF RESPIRATORY DISTRESS NOTED. IV ACCESS IN R FEMORAL WAS PULLED OUT LAST NIGHT, MIDLINE TO BE INSERTED TODAY. PATIENT ON BILATERAL SOFT WRIST RESTRAINTS WITH CIRCULATION, MOTOR AND SENSATION INTACT BILATERALLY DISTAL TO RESTRAINTS. FLEXISEAL IN PLACE, INTACT. G-TUBE IN PLACE RUNNING NEPHRO AT 45 ML/HR. SAFETY MEASURES IN PLACE: BED IN LOWEST LOCKED POSITION, SIDE RAILS UP X 2, CALL LIGHT WITHIN REACH. WILL CONTINUE TO MONITOR.
[2022-03-11 07:33] LABS: BASOPHILS # (AUTO) 0.1 K/uL (0.0-0.2); BASOPHILS % (AUTO) 0.6 % (0.0-2.0); EOSINOPHILS % (AUTO) 0.7 % (0.0-6.0); HEMATOCRIT 32 % (33-45); HEMOGLOBIN 10.2 g/dL (11.5-14.8); LYMPHOCYTES # (AUTO) 1.4 K/uL (0.8-4.8); MEAN CORPUSCULAR HGB CONC 32 g/dl (31.0-36.0); MEAN CORPUSCULAR VOLUME 91 fL (82-100); MONOCYTES # (AUTO) 0.6 K/uL (0.1-1.30); MONOCYTES % (AUTO) 4.4 % (2.0-12.0); NEUTROPHILS # (AUTO) 11.9 K/uL (1.8-8.9); NEUTROPHILS % (AUTO) 84.3 % (43.0-81.0); PLATELET COUNT (AUTO) 250 K/uL (150-450); RED BLOOD CELL COUNT(AUTO) 3.54 MIL/uL (4.0-5.2); WHITE BLOOD COUNT (AUTO) 14.1 K/uL (4.3-11.0)
[2022-03-11 07:43] LABS: CALCIUM, SERUM 9.2 mg/dL (8.5-10.1); CARBON DIOXIDE 24 mmol/L (21-32); CHLORIDE 96 mmol/L (98-107); CREATININE 3.1 mg/dL (0.6-1.3); GLUCOSE 133 mg/dL (74-106); POTASSIUM 3.6 mmol/L (3.5-5.1); SODIUM SERUM 131 mmol/L (136-145); UREA NITROGEN, BLOOD 42 mg/dL (7-18)
[2022-03-11] MEDS: LEVOTHYROXINE SODIUM 88 MCG TABLET GT SCH (07:54)
[2022-03-11 08:00] VITALS: BP 152/74
[2022-03-11] MEDS: VIT B CMPLX 3/FA/VIT C/BIOTIN 1 TAB TABLET GT SCH (08:51)
[2022-03-11] MEDS: SEVELAMER CARBONATE 800 MG POWD.PACK GT SCH ×3 (08:52→18:06)
[2022-03-11] MEDS: PANTOPRAZOLE 40 MG/PACK PACK GT SCH (08:52)
[2022-03-11] MEDS: AMLODIPINE BESYLATE 10 MG TABLET GT SCH (08:53)
[2022-03-11] MEDS: PROSOURCE / PROSTAT (PYXIS) 30 ML UDC GT SCH (09:08)
[2022-03-11] MEDS: MUPIROCIN OINT 2% 22 GM TUBE NS SCH (09:09)
[2022-03-11] MEDS: HYDROGEL DRESSING 90 GM TUBE TP SCH (09:10)
[2022-03-11 12:00] VITALS: BP 152/74
[2022-03-11 16:00] VITALS: BP 143/80
--- NOTE | 2022-03-11 19:00 | NUR ---
MS RN NOTES PATIENT IN BED, AWAKE, NON-VERBAL BUT TRACKS WITH EYES. TELE MONITOR READING SINUS RHYTHM 84. ON MECHANICAL VENTILATOR WITH THE FOLLOWING SETTINGS: SHILEY XLT; AC 18, TV 450, FiO2 30%, PEEP 5. NO SIGNS OF RESPIRATORY DISTRESS NOTED. MIDLINE PRESENT ON R AC. PATIENT ON BILATERAL SOFT WRIST RESTRAINTS WITH CIRCULATION, MOTOR AND SENSATION INTACT BILATERALLY DISTAL TO RESTRAINTS. FLEXISEAL NO LONGER IN PLACE. G-TUBE IN PLACE RUNNING NEPHRO AT 45 ML/HR. SAFETY MEASURES IN PLACE: BED IN LOWEST LOCKED POSITION, SIDE RAILS UP X 2, CALL LIGHT WITHIN REACH. WILL ENDORSE TO ROLLER FOR SALVATORE.
--- NOTE | 2022-03-11 19:25 | NUR ---
MS RN NOTES PT RECEIVED IN BED. PT IS TRACH/VENT WITH SETTINGS AT AC: 18, TV: 450, FIO2: 30%. TOLERATING SETTINGS WELL WITH OXYGEN SATURATION CURRENTLY AT 100%. PT ALERT, BUT NON-VERBAL. SACRAL WOUND NOTED. BILATERAL SOFT WRIST RESTRAINT NOTED. ALL SAFETY MEASURES/PROTOCOLS IMPLEMENTED/INITIATED. G-TUBE INTACT AND PATENT RUNNING NEPRO AT 45 CC/HR. IV ACCESS NOTED ON RIGHT UPPER ARM ML. LINE FLUSHED, PATENT, AND INTACT WITH NO SIGNS OF INFILTRATION. LEFT UPPER CHEST WALL HD CATH NOTED. ALL SAFETY MEASURES IMPLEMENTED. BED LOCKED AND IN LOWEST POSITION, SIDE RAILS UP X 2, CALL LIGHT WITHIN REACH. WILL CONTINUE TO MONITOR AND ASSESS FOR ANY CHANGES DURING SHIFT. Addendum: 03/12/22 at 0358 by BRITTNI HARO RN RN NOTES PT RECEIVED IN BED. PT IS TRACH/VENT WITH SETTINGS AT AC: 18, TV: 450, FIO2: 30%. TOLERATING SETTINGS WELL WITH OXYGEN SATURATION CURRENTLY AT 100%. PT ALERT, BUT NON-VERBAL. SACRAL WOUND NOTED. BILATERAL SOFT WRIST RESTRAINT NOTED. ALL SAFETY MEASURES/PROTOCOLS IMPLEMENTED/INITIATED. G-TUBE INTACT AND PATENT RUNNING NEPRO AT 45 CC/HR. IV ACCESS NOTED ON RIGHT UPPER ARM ML. LINE FLUSHED, PATENT, AND INTACT WITH NO SIGNS OF INFILTRATION. LEFT UPPER CHEST WALL HD CATH NOTED. ALL SAFETY MEASURES IMPLEMENTED. BED LOCKED AND IN LOWEST POSITION, SIDE RAILS UP X 2, CALL LIGHT WITHIN REACH. WILL CONTINUE TO MONITOR AND ASSESS FOR ANY CHANGES DURING SHIFT.
[2022-03-11 20:00] VITALS: BP 150/66
[2022-03-11] MEDS: OLANZAPINE 2.5 MG TABLET GT SCH (22:24)
[2022-03-11] MEDS: DOCUSATE SODIUM LIQ 100 MG/10 ML UDC GT SCH (22:24)
[2022-03-11] MEDS: NEPRO 1,000 ML BOTTLE GT PRN (22:38)
[2022-03-12] VITALS (7 sets, daily range): BP systolic 139–178; BP diastolic 63–77
[2022-03-12] MEDS: IV NS 0.9% 1,000 ML IV PRN ×2 (00:10→15:11)
[2022-03-12] MEDS: VANCOMYCIN HCL 125 MG/2.5 ML ORAL.SUSP GT SCH ×3 (05:06→17:22)
[2022-03-12] MEDS: HYDROCORTISONE SOD SUCCINATE 100 MG/2 ML VIAL IV SCH ×2 (05:06→17:23)
[2022-03-12] MEDS: INSULIN REGULAR, HUMAN 100 UNIT/ML 3 ML VIAL SQ PRN ×3 (05:21→18:01)
[2022-03-12] MEDS: BLOOD SUGAR DIAGNOSTIC 1 EACH STRIP IN SCH ×3 (05:21→17:58)
[2022-03-12 06:11] LABS: BASOPHILS % (AUTO) 0.3 % (0.0-2.0); HEMATOCRIT 27 % (33-45); HEMOGLOBIN 8.8 g/dL (11.5-14.8); LYMPHOCYTES # (AUTO) 2.3 K/uL (0.8-4.8); LYMPHOCYTES % (AUTO) 19.2 % (20.0-44.0); MEAN CORPUSCULAR HGB CONC 32 g/dl (31.0-36.0); MEAN CORPUSCULAR VOLUME 91 fL (82-100); MONOCYTES # (AUTO) 0.9 K/uL (0.1-1.30); MONOCYTES % (AUTO) 7.2 % (2.0-12.0); NEUTROPHILS # (AUTO) 8.3 K/uL (1.8-8.9); NEUTROPHILS % (AUTO) 70.3 % (43.0-81.0); PLATELET COUNT (AUTO) 271 K/uL (150-450); RED BLOOD CELL COUNT(AUTO) 3.02 MIL/uL (4.0-5.2); WHITE BLOOD COUNT (AUTO) 11.8 K/uL (4.3-11.0)
--- NOTE | 2022-03-12 06:27 | NUR ---
RN NOTES NO CHANGES IN PT CONDITION DURING SHIFT. PT RESTING COMFORTABLY. PT IS TRACH/VENT WITH SETTINGS AT AC: 18, TV: 450, FIO2: 30%. BILATERAL SOFT WRIST RESTRAINTS NOTED. ALL SAFETY MEASURES/PROTOCOLS IMPLEMENTED. G-TUBE RUNNING NEPRO AT 45 CC/HR. 0.9% NS RUNNING AT 75 CC/HR VIA RIGHT UPPER ARM ML. ALL SAFETY MEASURES IMPLEMENTED. PT KEPT CLEAN AND COMFORTABLE. ALL DUE MEDS GIVEN ORDERED. WILL ENDORSE TO MORNING SHIFT RN FOR SALVATORE.
[2022-03-12 07:04] LABS: CALCIUM, SERUM 8.8 mg/dL (8.5-10.1); CARBON DIOXIDE 25 mmol/L (21-32); CHLORIDE 103 mmol/L (98-107); CREATININE 3.9 mg/dL (0.6-1.3); GLUCOSE 99 mg/dL (74-106); SODIUM SERUM 139 mmol/L (136-145); UREA NITROGEN, BLOOD 56 mg/dL (7-18)
--- NOTE | 2022-03-12 07:25 | NUR ---
RN OPENING NOTES RECEIVED PATIENT RESTING COMFORTABLY.PT IS NON VERBAL. PT IS TRACH/VENT WITH SETTINGS AT AC: 18, TV: 450, FIO2: 30%. BILATERAL SOFT WRIST RESTRAINTS NOTED. ALL SAFETY MEASURES/PROTOCOLS IMPLEMENTED. G-TUBE RUNNING NEPRO AT 45 CC/HR. 0.9% NS RUNNING AT 75 CC/HR VIA RIGHT UPPER ARM ML. ALL SAFETY MEASURES IMPLEMENTED BED LOCKED IN THE LOWEST POSITION, BED ALARM ACTIVATED 2 SIDE RAILS UP AND CALL LIGHT WITHIN REACH.
[2022-03-12] MEDS: LEVOTHYROXINE SODIUM 88 MCG TABLET GT SCH (08:07)
[2022-03-12] MEDS: SEVELAMER CARBONATE 800 MG POWD.PACK GT SCH ×3 (08:07→17:22)
[2022-03-12] MEDS: AMLODIPINE BESYLATE 10 MG TABLET GT SCH (08:07)
[2022-03-12] MEDS: PANTOPRAZOLE 40 MG/PACK PACK GT SCH (08:07)
[2022-03-12] MEDS: VIT B CMPLX 3/FA/VIT C/BIOTIN 1 TAB TABLET GT SCH (08:07)
[2022-03-12] MEDS: PROSOURCE / PROSTAT (PYXIS) 30 ML UDC GT SCH (08:09)
[2022-03-12] MEDS: HYDROGEL DRESSING 90 GM TUBE TP SCH (08:21)
--- NOTE | 2022-03-12 18:42 | NUR ---
RN CLOSING NOTES RECEIVED PATIENT RESTING COMFORTABLY.PT IS NON VERBAL. PT IS TRACH/VENT WITH SETTINGS AT AC: 18, TV: 450, FIO2: 30%. BILATERAL SOFT WRIST RESTRAINTS NOTED. ALL SAFETY MEASURES/PROTOCOLS IMPLEMENTED. G-TUBE RUNNING NEPRO AT 45 CC/HR. 0.9% NS RUNNING AT 75 CC/HR VIA RIGHT UPPER ARM ML. AL SCHEDULED MEDICATIONS WERE GIVEN. PATIENT KEPT CLEAN. ALL SAFETY MEASURES IMPLEMENTED BED LOCKED IN THE LOWEST POSITION, BED ALARM ACTIVATED 2 SIDE RAILS UP AND CALL LIGHT WITHIN REACH. WILL ENDORSE TO NIGHT NURSE
--- NOTE | 2022-03-12 20:00 | NUR ---
APPLICATIONS INTERN NOTE RECEIVED PT IN BED AWAKE. NON VERBAL. ABLE TO USE FACIAL EXPRESSIONS TO COMMUNICATED. NO SOB, NO DISTRESS OR DISCOMFORT NOTED. ON VENT/TRACH TOLERATING THE SETTINGS WELL. KEPT HOB ELEVATED. ON GTF NEPRO AT 45 ML/HR, 0 ML RESIDUAL NOTED. ON TELE MONITOR SR HR 72. PT IS ON RESTRAINTS SOFT WRIST BILATERAL, SKIN AROUND REST. WNL. JASE WITH MIDLINE INTACT AND PATENT. NO S/S OF HYPO OR HYPERGLYCEMIA NOTED. ALSO NOTED HER BP IS ELEVATED TO 170'S. WILL RECHECK AGAIN. KEPT HER DRY AND CLEAN. REPOSITION HER FOR SKIN MANAGEMENT AND WILL DO Q2H. ALL NEEDS ATTENDED. SIDE RAILS UP X 3 AND CALL LIGHT WITHIN REACH. CONTINUE TO MONITOR HER CLOSELY.
--- NOTE | 2022-03-12 20:14 | NUR ---
GROCERY SHOPPER NOTE NOTED PT WITH HIGH BP 176/74 HR 84, INFORMED MD VALDERRAMA, RECEIVED NEW ORDER, ORDER NOTED AND CARRIED OUT. CONTINUE TO MONITOR THE PT.
[2022-03-12] MEDS: METOPROLOL TARTRATE 25 MG TABLET PO PRN (20:33)
--- NOTE | 2022-03-12 21:40 | NUR ---
MARKETING SERVICES REP NOTE NOTE BP CAME DOWN TO 160/63 HR 73, PT IN NO DISTRESS OR DISCOMFORT, DENIES PAIN. CONTINUE TO MONITOR. REPOSITION HER Q2H.
[2022-03-12] MEDS: DOCUSATE SODIUM LIQ 100 MG/10 ML UDC GT SCH (22:00)
[2022-03-12] MEDS: OLANZAPINE 2.5 MG TABLET GT SCH (22:00)
[2022-03-12] MEDS: INSULIN GLARGINE, 100 UNIT/ML CARTRIDGE SQ SCH (22:01)
[2022-03-13] VITALS: BP 165/65
[2022-03-13] MEDS: BLOOD SUGAR DIAGNOSTIC 1 EACH STRIP IN SCH ×3 (00:28→11:33)
[2022-03-13] MEDS: VANCOMYCIN HCL 125 MG/2.5 ML ORAL.SUSP GT SCH ×3 (00:29→12:06)
[2022-03-13] MEDS: INSULIN REGULAR, HUMAN 100 UNIT/ML 3 ML VIAL SQ PRN (00:31)
[2022-03-13 04:00] VITALS: BP 175/80
[2022-03-13] MEDS: HYDROCORTISONE SOD SUCCINATE 100 MG/2 ML VIAL IV SCH (04:24)
[2022-03-13] MEDS: IV NS 0.9% 1,000 ML IV PRN (04:25)
[2022-03-13] MEDS: NEPRO 1,000 ML BOTTLE GT PRN (04:26)
[2022-03-13 06:17] LABS: CALCIUM, SERUM 9.2 mg/dL (8.5-10.1); CARBON DIOXIDE 22 mmol/L (21-32); CHLORIDE 104 mmol/L (98-107); CREATININE 4.4 mg/dL (0.6-1.3); GLUCOSE 100 mg/dL (74-106); POTASSIUM 3.4 mmol/L (3.5-5.1); SODIUM SERUM 139 mmol/L (136-145); UREA NITROGEN, BLOOD 67 mg/dL (7-18)
--- NOTE | 2022-03-13 06:23 | NUR ---
[facility] FORMER CLOSING NOTES PT IN BED, AWAKE. NO CHANGES IN CONDITION. PT TOLERATING VENT SETTINGS WELL. NO DISTRESS, DISCOMFORT NOTED. NO SI/SX OF PAIN. ON TELE MONITOR, SR HR 92. GTF INFUSING WELL. NO SI/SX OF HYPO OR HYPERGLYCEMIA. PT REMAIN WITH BILATERAL WRIST SOFT WRIST RESTRAINTS AND RIGHT HAND MITTEN. REPOSITIONED Q2H, KEPT DRY AND CLEAN, SIDE RAILS X3, ALL NEEDS ATTENDED. WILL ENDORSE TO DAYSHIFT NURSE TO CONTINUE CARE.
[2022-03-13 06:45] LABS: BASOPHILS % (AUTO) 0.2 % (0.0-2.0); EOSINOPHILS % (AUTO) 1.3 % (0.0-6.0); HEMATOCRIT 25 % (33-45); HEMOGLOBIN 8.2 g/dL (11.5-14.8); LYMPHOCYTES # (AUTO) 1.9 K/uL (0.8-4.8); LYMPHOCYTES % (AUTO) 20.9 % (20.0-44.0); MEAN CORPUSCULAR HGB CONC 33 g/dl (31.0-36.0); MEAN CORPUSCULAR VOLUME 90 fL (82-100); MONOCYTES # (AUTO) 0.7 K/uL (0.1-1.30); NEUTROPHILS # (AUTO) 6.6 K/uL (1.8-8.9); NEUTROPHILS % (AUTO) 70.6 % (43.0-81.0); PLATELET COUNT (AUTO) 279 K/uL (150-450); RED BLOOD CELL COUNT(AUTO) 2.76 MIL/uL (4.0-5.2); WHITE BLOOD COUNT (AUTO) 9.3 K/uL (4.3-11.0)
--- NOTE | 2022-03-13 07:41 | NUR ---
RN OPENING NOTES Patient seen comfortably lying in bed, no shortness of breath, no apparent distress noted, breathing even and unlabored, no grimacing. Call light left within reach, safety precautions in place, brakes locked, side rails up X 2, will monitor closely for any changes.
[2022-03-13 08:00] VITALS: BP 158/69
[2022-03-13] MEDS: PROSOURCE / PROSTAT (PYXIS) 30 ML UDC GT SCH (09:22)
[2022-03-13] MEDS: AMLODIPINE BESYLATE 10 MG TABLET GT SCH (09:23)
[2022-03-13] MEDS: SEVELAMER CARBONATE 800 MG POWD.PACK GT SCH ×2 (09:23→12:06)
[2022-03-13] MEDS: VIT B CMPLX 3/FA/VIT C/BIOTIN 1 TAB TABLET GT SCH (09:23)
[2022-03-13] MEDS: PANTOPRAZOLE 40 MG/PACK PACK GT SCH (09:23)
[2022-03-13] MEDS: LEVOTHYROXINE SODIUM 88 MCG TABLET GT SCH (09:28)
[2022-03-13] MEDS: METOPROLOL TARTRATE 25 MG TABLET PO PRN (10:01)
[2022-03-13] MEDS: HYDROGEL DRESSING 90 GM TUBE TP SCH (10:42)
[2022-03-13] MEDS ORDERED: AMLO-213 GT (11:54)
[2022-03-13] MEDS ORDERED: VANC125C11 GT (11:54)
[2022-03-13 12:00] VITALS: BP 157/86
--- NOTE | 2022-03-13 12:27 | NUR ---
Patient had dialysis session today with output of 2,000ml, tolerated procedure well, no s/s of hypotension, no change in level of consciousness, no s/s of fluid overload, no shortness of breath, no dizziness, no palpitations. Dialysis site on left subclavian catheter with dry and intact dressing, no bleeding, no unusual drainage, no unusual smell noted, no redness, will monitor closely for any changes
[2022-03-13 16:00] VITALS: BP 125/65
--- NOTE | 2022-03-13 17:14 | NUR ---
Patient to be discharged to Center at [facility] today, spoke to Polina Nguyen RN (phone: [phone]) to give report. Patient seen comfortably lying in bed, no apparent distress noted, no shortness of breath, respirations even and unlabored, no grimacing, no dizziness, no palpitations, no chest pain, no numbness, no s/s of hypo/hyperglycemia, no change in level in consciousness, no tremors. Patient made aware of the situation, patient unable to sign discharge paperworks, 2 RNs signed all discharge paper works, patient has no belongings upon admission, inventory list signed by 2 RNs. Skin assessment done prior to discharge, skin intact, warm to touch, no pallor or cyanosis noted. Patient has sacral wound, pinkish bilateral foot and pinkish bilateral heels, photos taken and filed in chart. Midline on right upper arm was not removed prior to dischargeper Polina Nguyen RN request, patient not discharging with any IV ATB but per RN to leave it and they will just remove it at facility. Midline site covered with clean, intact dry dressing, no bleeding, no discoloration, no swelling noted at this time. Name wristband removed prior to discharge, surgical mask provided for patient to use. [facility] ambulance came to potato picker patient, exit care documents handed to laboratory geneticist. Patient left unit at 1714, stable condition, vital signs within normal limits.
== END 2022-03-13 17:18 | DRG 870 ==
LOC: ER 15:06 → ICU 19:52 → TELE-TD 03-04 19:02 → TELE1 03-07 15:45
PROVIDERS: ADMIT Nurse Practitioner Acute Care; ATTEND Nurse Practitioner Acute Care
PROC: 5A1955Z Respiratory Ventilation, Greater than 96 Consecutive Hours (ICD-10-PCS; principal; 2022-03-02)
PROC: 06HM33Z Insertion of Infusion Device into Right Femoral Vein, Percutaneous Approach (ICD-10-PCS; 2022-03-02)
PROC: B54BZZA Ultrasonography of Right Lower Extremity Veins, Guidance (ICD-10-PCS; 2022-03-02)
PROC: 5A1D70Z Performance of Urinary Filtration, Intermittent, Less than 6 Hours Per Day (ICD-10-PCS; 2022-03-04)
PROC: 05HB33Z Insertion of Infusion Device into Right Basilic Vein, Percutaneous Approach (ICD-10-PCS; 2022-03-11)
DX: A41.9 Sepsis, unspecified organism (principal); G93.41 Metabolic encephalopathy; I21.A1 Myocardial infarction type 2; N18.6 End stage renal disease; R65.21 Severe sepsis with septic shock; R53.2 Functional quadriplegia; J15.9 Unspecified bacterial pneumonia; J96.10 Chronic respiratory failure, unspecified whether with hypoxia or hypercapnia; I12.0 Hypertensive chronic kidney disease with stage 5 chronic kidney disease or end stage renal disease; Z99.11 Dependence on respirator [ventilator] status; E87.2 Acidosis; E27.40 Unspecified adrenocortical insufficiency; E11.22 Type 2 diabetes mellitus with diabetic chronic kidney disease; E86.0 Dehydration; I25.10 Atherosclerotic heart disease of native coronary artery without angina pectoris; Z86.73 Personal history of transient ischemic attack (TIA), and cerebral infarction without residual deficits; R13.10 Dysphagia, unspecified; Z93.0 Tracheostomy status; Z93.1 Gastrostomy status; E11.65 Type 2 diabetes mellitus with hyperglycemia; Z88.1 Allergy status to other antibiotic agents; Z88.5 Allergy status to narcotic agent; Z88.2 Allergy status to sulfonamides; Z88.8 Allergy status to other drugs, medicaments and biological substances; Z79.4 Long term (current) use of insulin; Z79.51 Long term (current) use of inhaled steroids; Z79.899 Other long term (current) drug therapy; Y95 Nosocomial condition; E78.5 Hyperlipidemia, unspecified; L89.90 Pressure ulcer of unspecified site, unspecified stage; L89.156 Pressure-induced deep tissue damage of sacral region; Z99.2 Dependence on renal dialysis; Z79.84 Long term (current) use of oral hypoglycemic drugs
CPT/HCPCS: 31720; 36410; 36415; 36600; 71045-TC; 80048-TC; 80061-TC; 80076-TC; 80202-TC; 82533; 82803-TC; 82962-TC; 83605-TC; 83735-TC; 83880; 84100-TC; 84484-TC; 85025-TC; 85610-TC; 85730-TC; 86706; 87040-TC; 87081-TC; 87340; 90935-TC; 93307-TC; 94003-TC; 94760-TC; 94799-TC; 99082-TC; A4217; A6248; A6253; A6403; A7526; G0378; J0692; J1644; J1650; J1720; J1815; J3370; J7030; J7050; J7060

== ENCOUNTER 2022-06-08 16:16 | Inpatient (IN) | payer MEDICARE, OTHER ==
[~2022-06-08] VITALS: Ht 165.1 cm; Wt 71.2 kg
[~2022-06-08 16:16] MED LIST changes: -AMIN30LI2 GT; -AMLO-212 GT; +AMLO-213 GT; -ASCO-352 GT; -CARV6.252 GT; -CHLO473M5 MM; -EPOE1VIA6 SQ; -ESCI10TA GT; -GLIP5TAB13 GT; +MELA3TAB41 GT; -NIFE-35 GT; +NUT.237L67 PO; -PIPE2.257 IV; -POLY17PO4 GT; +VANC125C11 GT; -VANC1PLA9 IV; -ZINC1CAP3 GT; -ZINC56.713 TP
--- NOTE | 2022-06-08 16:25 | NUR ---
RECEIVED PT 71 YRS FEMALE TRANS CRAIG FROM HD CENTER C/O GENRALIZED WEEKNEESS AND HR above 120b/min with tatcostomy conected to mechincal vent sitteng TV 450 AC 18 PEEP 5 FIO2 40 % RT AT BED SIDE
--- NOTE | 2022-06-08 17:00 | NUR ---
RT pt received and placed on mechanical vent with settings from facility, given by transport. trached, portex 8 cuffed. vent settings: AC 18 450 40% +5. lung sounds clear. small yellow thick secretions suctioned via trach. vent plugged in to red outlet. alarms on and audible. spare trach and ambu bag at bedside. no sob. pt is tachypnic, but no signs of resp distress.
[2022-06-08] MEDS ORDERED: ACETAMINOPHEN 650 MG/20.3 ML UDC ONE (17:49)
[2022-06-08] MEDS ORDERED: PIPERACILLIN /TAZOBACTAM 3.375 G in IV D5W 50 ML IV ONE (18:00)
[2022-06-08] MEDS ORDERED: VANCOMYCIN 1 GM in IV D5W 250 ML IV ONE (18:00)
[2022-06-08] MEDS ORDERED: ACETAMINOPHEN 650 MG/20.3 ML UDC GT ONE (18:00)
[2022-06-08 18:01] LABS: BASOPHILS # (AUTO) 0.1 K/uL (0.0-0.2); BASOPHILS % (AUTO) 0.5 % (0.0-2.0); HEMATOCRIT 35 % (33-45); HEMOGLOBIN 10.8 g/dL (11.5-14.8); LYMPHOCYTES # (AUTO) 0.8 K/uL (0.8-4.8); LYMPHOCYTES % (AUTO) 2.7 % (20.0-44.0); MEAN CORPUSCULAR HGB CONC 31 g/dl (31.0-36.0); MEAN CORPUSCULAR VOLUME 102 fL (82-100); MONOCYTES # (AUTO) 1.6 K/uL (0.1-1.30); MONOCYTES % (AUTO) 5.7 % (2.0-12.0); NEUTROPHILS # (AUTO) 25.2 K/uL (1.8-8.9); NEUTROPHILS % (AUTO) 91.1 % (43.0-81.0); PLATELET COUNT (AUTO) 289 K/uL (150-450); RED BLOOD CELL COUNT(AUTO) 3.44 MIL/uL (4.0-5.2); WHITE BLOOD COUNT (AUTO) 27.7 K/uL (4.3-11.0)
--- NOTE | 2022-06-08 18:20 | NUR ---
ALEJANDRINA LAW SENT TO LAB
[2022-06-08 18:29] LABS: BAND % (MANUAL) 1 % (0.0-5.0); LYMPHOCYTES % (MANUAL) 6 % (16-48); MONOCYTES % (MANUAL) 8 % (0-11.0); NEUTROPHILS % (MANUAL) 85 (42-76)
[2022-06-08 18:45] LABS: CALCIUM, SERUM 9.1 mg/dL (8.5-10.1); CARBON DIOXIDE 21 mmol/L (21-32); CHLORIDE 96 mmol/L (98-107); CREATININE 3.2 mg/dL (0.6-1.3); GLUCOSE 199 mg/dL (74-106); POTASSIUM 4.7 mmol/L (3.5-5.1); SODIUM SERUM 133 mmol/L (136-145); UREA NITROGEN, BLOOD 44 mg/dL (7-18)
[2022-06-08 18:57] LABS: ALANINE AMINOTRANSFERASE 12 U/L (12-78); ALBUMIN 2.2 g/dL (3.4-5.0); ALKALINE PHOSPHATASE 150 U/L (46-116); ASPARTATE AMINOTRANSFERASE 22 U/L (15-37); BILIRUBIN,DIRECT 0.2 mg/dL (0.0-0.2); BILIRUBIN,TOTAL 0.4 mg/dL (0.2-1.0); TOTAL PROTEIN, SERUM 8.7 g/dL (6.4-8.2)
[2022-06-08] MEDS ORDERED: NEPRO VAN 237 ML CAN GT SCH (19:00)
[2022-06-08] MEDS ORDERED: NOREPINEPHRINE 32 MG in IV NS 0.9% 218 ML IV PRN (19:00)
[2022-06-08] MEDS ORDERED: IV NS 0.9% 1,000 ML BAG IV ONE (19:00)
[2022-06-08] MEDS ORDERED: *INSULIN REGULAR(HUMULIN R)HUM 100 UNIT/ML VIAL SQ PRN (19:00)
[2022-06-08] MEDS ORDERED: DEXTROSE 50%-WATER 50 ML DISP.SYRIN IV PRN (19:00)
[2022-06-08] MEDS ORDERED: NOREPINEPHRINE 8 MG in IV NS 0.9% 250 ML IV ONE (19:00)
[2022-06-08] MEDS ORDERED: ALBUTEROL FS 2.5 MG/3 ML VIAL.NEB NEB PRN (19:00)
[2022-06-08] MEDS ORDERED: NEPRO VAN 237 ML CAN PO SCH (19:00)
[2022-06-08] MEDS ORDERED: INSULIN REGULAR, HUMAN 100 UNIT/ML 3 ML VIAL SQ PRN (19:00)
[2022-06-08] MEDS ORDERED: ONDANSETRON HCL/PF 4 MG/2 ML VIAL IVP PRN (19:00)
--- NOTE | 2022-06-08 19:00 | NUR ---
BP 66/33 DR. MEJÍA AT BED SIDE FOR INSERTION OF TRIPLE LUMEN INSETED ON LT FAMOR UNDER US GIDED
[2022-06-08] MEDS ORDERED: NOREPINEPHRINE 4 MG/4 ML AMPUL IV ONE (19:01)
--- NOTE | 2022-06-08 19:15 | NUR ---
STERTED LEVOPHED DRIP 0.05 MCG/KG/MIN CONTENUE BRANDAN WANG PT AND INCRESED TO 0.1MCG/KG/MIN
--- NOTE | 2022-06-08 19:35 | NUR ---
HAND OFF TO ELVIRA LOPEZ INCREASED LEVOPHED DRIP 0.1MCG/KG/MIN
--- NOTE | 2022-06-08 19:40 | NUR ---
RECEIVED REPORT FROM PEDRO LOPEZ FOR SALVATORE
--- NOTE | 2022-06-08 19:41 | NUR ---
RECEIVED PT IN BED , ER ROOM 8. PT AAOX0. GTUBE IN PLACE. L FEMORAL CENTRAL LINE AND DIALYSIS PORT ON L UPPER CHEST NOTED. VENT TRACHE; SETTINGS: Fio2 40, VT 450, Rate 18, FLOW 60, Peep 5, Pmax 60. LEVO ON PUMP @0.1MCG. WILL CONTINUE TO MONITOR
--- NOTE | 2022-06-08 20:03 | NUR ---
CRITIAL LAB PROCAL 20.21
[2022-06-08] MEDS ORDERED: ACETAMINOPHEN ES 500 MG TABLET ONE (20:07)
[2022-06-08] MEDS ORDERED: PIPERACILLIN /TAZOBACTAM 3.375 G VIAL IV ONE (20:07)
[2022-06-08] MEDS ORDERED: VANCOMYCIN 1 GM VIAL ONE (20:07)
[2022-06-08] MEDS ORDERED: METOPROLOL TARTRATE 25 MG TABLET GT SCH (21:00)
--- NOTE | 2022-06-08 21:59 | NUR ---
PT KEPT ON LEVO PUMP @0.1MCG, PT TOLERATING WELL. WILL CONTINUE TO MONITOR
--- NOTE | 2022-06-08 22:27 | NUR ---
LAB AT BEDSIDE
--- NOTE | 2022-06-08 23:28 | NUR ---
REPORT GIVEN TO ED RN FOR SALVATORE
[2022-06-09] VITALS (35 sets, daily range): BP systolic 97–129; BP diastolic 37–83
[2022-06-09] MEDS ORDERED: CEFEPIME 1 GM in IV D5W 50 ML IV SCH ×2
--- NOTE | 2022-06-09 00:46 | NUR ---
PT TRANSFERRING TO ICU VIA HOSPITAL PROTOCOL WITH RT. VSS. ALL BELONGINGS WITH PT. PT TOLERATING TRANSFER WELL.
--- NOTE | 2022-06-09 01:00 | NUR ---
DRAFTER GEOPHYSICAL NOTES RECEIVED PT FROM ER VIA [facility] ACCOMPANIED BY 2 ER STAFF AND TRANSFERRED TO BED VIA 2-3 PERSON ASSIST. PT NON VERBAL; PT ON MECHANICAL VENT; SETTINGS PRESCRIBED WITH RESPIRATIONS EVEN AND UNLABORED. COMPREHENSIVE PHYSICAL ASSESSMENT AND PATIENT CARE DONE. CALL LIGHT WITHIN REACH, SAFETY MEASURES IN PLACE, WILL CONTINUE MONITOR AND ASSESS THROUGHOUT THE SHIFT. WILL CARRY OUT MD ORDERS ACCORDINGLY. ICE CREAM CHEF MADE AWARE.
--- NOTE | 2022-06-09 01:00 | NUR ---
TRANSFERRED VENT PT FROM ER TO ICU RM 255, NO RESPIRATORY DISTRESS NOTED AT THIS TIME.
[2022-06-09] MEDS: BLOOD SUGAR DIAGNOSTIC 1 EACH STRIP VI SCH ×2 (02:06→08:19)
[2022-06-09] MEDS: INSULIN GLARGINE, 100 UNIT/ML CARTRIDGE SQ SCH ×2 (02:10→22:29)
--- NOTE | 2022-06-09 02:15 | NUR ---
RN NOTES RN CALLED [facility], SPOKE WITH JOHN VALDERRAMA CONFIRMED PT DIET/ FEEDING NOVASOURCE RENAL @65CC/HR. NOTIFIED ONCGEOVANNI MELENDEZ (RIVER,LABORER TREE TAPPING) SEUCRED ORDER: START TUBE FEEDING NEPRO @65CC/HR AND NS @75CC/HR. RN ACKNOWLEDGED. WILL CARRY OUT ORDER. DAMPENER OPERATOR MADE AWARE.
[2022-06-09] MEDS ORDERED: IV NS 0.9% 1,000 ML IV PRN (02:30)
[2022-06-09] MEDS: OLANZAPINE 2.5 MG TABLET GT SCH ×2 (02:37→21:33)
[2022-06-09] MEDS ORDERED: CEFEPIME 1 GM VIAL ONE (02:51)
[2022-06-09] MEDS ORDERED: NEPRO 1,000 ML BOTTLE GT PRN (03:30)
--- NOTE | 2022-06-09 04:00 | NUR ---
WET POUR MIXER NOTES PATIENT REMAINED TO BE IN NO SIGNS OF ACUTE RESPIRATORY DISTRESS , VITAL SIGNS STABLE AT THIS TIME. REGULAR TURNING AND REPOSITIONING DONE, SUCTIONING DONE, AND AM PATIENT CARE RENDERED WILL CONTINUE TO MONITOR AND REASSESS FOR ANY CHANGES THROUGHOUT THE SHIFT.
[2022-06-09 05:40] LABS: BASOPHILS % (AUTO) 0.1 % (0.0-2.0); HEMATOCRIT 31 % (33-45); HEMOGLOBIN 9.7 g/dL (11.5-14.8); LYMPHOCYTES # (AUTO) 0.7 K/uL (0.8-4.8); LYMPHOCYTES % (AUTO) 2.4 % (20.0-44.0); MEAN CORPUSCULAR HGB CONC 32 g/dl (31.0-36.0); MEAN CORPUSCULAR VOLUME 100 fL (82-100); MONOCYTES # (AUTO) 1.6 K/uL (0.1-1.30); MONOCYTES % (AUTO) 5.6 % (2.0-12.0); NEUTROPHILS # (AUTO) 26.3 K/uL (1.8-8.9); NEUTROPHILS % (AUTO) 91.9 % (43.0-81.0); PLATELET COUNT (AUTO) 271 K/uL (150-450); RED BLOOD CELL COUNT(AUTO) 3.06 MIL/uL (4.0-5.2); WHITE BLOOD COUNT (AUTO) 28.7 K/uL (4.3-11.0)
[2022-06-09 05:50] LABS: ALANINE AMINOTRANSFERASE 10 U/L (12-78); ALKALINE PHOSPHATASE 125 U/L (46-116); ASPARTATE AMINOTRANSFERASE 18 U/L (15-37); BILIRUBIN,TOTAL 0.4 mg/dL (0.2-1.0); CALCIUM, SERUM 8.9 mg/dL (8.5-10.1); CARBON DIOXIDE 19 mmol/L (21-32); CHLORIDE 99 mmol/L (98-107); CREATININE 3.7 mg/dL (0.6-1.3); GLUCOSE 257 mg/dL (74-106); MAGNESIUM 2.2 mg/dL (1.8-2.4); PHOSPHORUS 2.5 mg/dL (2.5-4.9); POTASSIUM 4.7 mmol/L (3.5-5.1); SODIUM SERUM 133 mmol/L (136-145); TOTAL PROTEIN, SERUM 7.7 g/dL (6.4-8.2); UREA NITROGEN, BLOOD 52 mg/dL (7-18)
[2022-06-09] MEDS: LEVOTHYROXINE SODIUM 88 MCG TABLET GT SCH (06:10)
[2022-06-09 06:14] LABS: BAND % (MANUAL) 2 % (0.0-5.0); BASOPHILS % (MANUAL) 0 % (0.0-2.0); EOSINOPHILS % (MANUAL) 0 % (0-4); LYMPHOCYTES % (MANUAL) 7 % (16-48); MONOCYTES % (MANUAL) 4 % (0-11.0); NEUTROPHILS % (MANUAL) 87 (42-76)
--- NOTE | 2022-06-09 06:31 | NUR ---
LIFE MANAGEMENT TEACHER CLOSING NOTE: PATIENT REMAINS IN ROOM IN NO SIGNS OF RESPIRATORY DISTRESS, PATIENT STILL ON MECH VENT; SETTINGS PRESCRIBED;TOLERATING WELL SATURATING @ >95% SP02. SAFETY MEASURES IMPLEMENTED, BED IN LOWEST POSITION, LOCKED, SIDE RAILS UP, CALL LIGHT WITHIN REACH. ALL NEEDS AND ORDERS ADDRESSED DURING THE SHIFT. IV ACCESS MAINTAINED INTACT, SECURED AND FLUSHING WELL. WITH IV FLUID RUNNING ORDERED. ALL DUE MEDS GIVEN ORDERED & SCHEDULED; PATIENT TOLERATED WELL. ALSO HAS ON GOING TUBE FEEDING PRESCRIBED; TOLERATED WELL. PATIENT KEPT CLEAN AND COMFORTABLE WITHIN THE SHIFT. PATIENT ENDORSED TO INCOMING SHIFT RN WITH STABLE VITAL SIGN AND FOR CONTINUITY OF CARE.
[2022-06-09] MEDS ORDERED: MEROPENEM 1 G in IV NS 0.9% 100 ML IV SCH (07:30)
[2022-06-09] MEDS ORDERED: DOSE PER PHARMACY MICAFUNGIN 1 EA XX PRN (07:30)
--- NOTE | 2022-06-09 08:00 | NUR ---
ICU/RN PT IS CHRONIC TRACH ON THE VENT AC MODE,FIO2-40%.SAT O2-100%.V/S STABLE.T-100.4. NO PAIN REPORTED AT THIS TIME.NON VERBAL,OPEN HER EYES,RESPONSIVE ON PAIN STIMULATION ,CONTRACTED ,HAS HX OF CVA.LEFT SUBCLAVIAN HD CATH .PT IS ESRD .LEFT FEMORAL TLC.G -TUBE INFUSING WITH WITH NEPRO,NO RESIDUAL NOTED.F/C IN PLACE NO URINAL OUTPUT ,PT IS ANURIC.LABS REVIEW. NOTIFIED.SUCTION PROVIDED.REPOSITION FOR COMFORT.
[2022-06-09] MEDS: VIT B CMPLX 3/FA/VIT C/BIOTIN 1 TAB TABLET GT SCH (08:19)
[2022-06-09] MEDS: PANTOPRAZOLE 40 MG/PACK PACK GT SCH (08:19)
[2022-06-09] MEDS: SEVELAMER CARBONATE 800 MG POWD.PACK GT SCH ×3 (08:19→18:01)
[2022-06-09] MEDS: ACETAMINOPHEN 325 MG TABLET PO PRN ×3 (08:36→21:59)
[2022-06-09] MEDS: MEROPENEM 500 MG in IV NS 0.9% 50 ML IV SCH ×2 (08:43→20:30)
[2022-06-09] MEDS ORDERED: DOCUSATE SODIUM 100 MG CAPSULE PO SCH (09:00)
[2022-06-09] MEDS ORDERED: AMLODIPINE BESYLATE 10 MG TABLET GT SCH (09:00)
[2022-06-09] MEDS ORDERED: LOSARTAN POTASSIUM 50 MG TABLET GT SCH (09:00)
--- NOTE | 2022-06-09 09:00 | NUR ---
ICU/RN T-100.4.TYLENOL VIA G-TUBE GIVEN ORDERED.HD NURSE AT BEDSIDE ,HD STARTED.
[2022-06-09] MEDS: ALBUMIN 25% 25 GM in PREMIX 1 EA IV PRN (09:28)
[2022-06-09] MEDS ORDERED: NOREPINEPHRINE 32 MG in IV NS 0.9% 218 ML IV PRN (09:30)
[2022-06-09] MEDS ORDERED: DEXTROSE 50%-WATER 50 ML DISP.SYRIN IV PRN (09:30)
--- NOTE | 2022-06-09 09:40 | NUR ---
ICU/RN DURING HD BP DECREASED.ALBUMIN GIVEN.
[2022-06-09] MEDS: BLOOD SUGAR DIAGNOSTIC 1 EACH STRIP IN SCH ×3 (11:25→23:25)
[2022-06-09] MEDS: Z GUARD REMEDY 4 OZ OINT TP PRN (12:12)
[2022-06-09] MEDS: INSULIN REGULAR, HUMAN 100 UNIT/ML 3 ML VIAL SQ PRN ×3 (12:13→22:28)
[2022-06-09] MEDS ORDERED: VANCOMYCIN 500 MG in IV D5W 100 ML IV PRN (13:00)
--- NOTE | 2022-06-09 13:00 | NUR ---
ICU/RN HD IS OVER 2 L OUTPUT.PT TOLERATED PROCEDURE WELL.T-102.8.COOLING MEASURED PROVIDED.
[2022-06-09 13:46] LABS: ABG BASE EXCESS 6.8 mmol/L; ABG PCO2 30.4 mmHg (35.0-45.0); ABG PH 7.589 (7.350-7.450); ABG PO2 67.6 mmHg (75.0-100.0); AaDO2 182.6 mmHg; COHb 0.6 % (0.5-1.5); O2Hb 95.4 % (94.0-97.0); PEEP,BG 5 cm H2O; SITE, ABG Right Brachial; VT, ABG 450 mL
--- NOTE | 2022-06-09 14:00 | NUR ---
ICU/RN ABG DONE .MD NOTIFIED.NEW ORDERS RECEIVED.
--- NOTE | 2022-06-09 15:59 | NUR ---
ICU/RN T-103.9 .TYLENOL VIA G-TUBE GIVEN ORDERED.COOLING BATH PROVIDED.PM CARE DONE .WOUND DRESSING DONE ORDERED.REPOSITION FOR COMFORT.
[2022-06-09] MEDS: MICAFUNGIN SODIUM 100 MG in IV NS 0.9% 100 ML IV SCH (18:01)
[2022-06-09] MEDS: THERAHONEY GEL 1.5 OZ TUBE TP SCH (18:59)
--- NOTE | 2022-06-09 19:44 | NUR ---
RT NOTE RECEIVED [facility]. SETTINGS PER . RYAN'Caitlin SMALL AMT OF THIN SECRETIONS. VENT ALARMS SET AND AUDIBLE. ETT SECURED, PATENT AND CUFF WAS CHECKED VIA CONDENSER TUBE TENDER.
[2022-06-09] MEDS: HEPARIN SODIUM, PORCINE 5000 UNITS/1 ML VIAL SQ SCH (21:34)
[2022-06-10] VITALS (10 sets, daily range): BP systolic 92–127; BP diastolic 36–61
--- NOTE | 2022-06-10 02:25 | NUR ---
babatunde rn notes Received pts from icu nurse lexus report and pts .On vent setting portex 8 ac18 tv 400 fi02 40% peep of 5 setting well tolerated no sob no distress noted .pts still low grade fever 100 cooling measures applied . all needs attended too .pts on left chest wall hd cath non use , left femoral tlc as hd cath intact patent lac G20 intact and patent . suction secretion done turned and reposition will continue to monitor pts .
--- NOTE | 2022-06-10 03:25 | NUR ---
babatunde rn note recheck temp via oral 99.1 continue on colling measure , will continue to monitor pts.
[2022-06-10] MEDS: INSULIN REGULAR, HUMAN 100 UNIT/ML 3 ML VIAL SQ PRN ×4 (05:38→22:38)
[2022-06-10] MEDS: BLOOD SUGAR DIAGNOSTIC 1 EACH STRIP IN SCH ×4 (05:39→23:10)
--- NOTE | 2022-06-10 05:42 | NUR ---
Betina rn notes Blood sugar at 6am is 180 mg/dl 3 units of regular insulin coverage given per sliding scale pts on gt feeding at this time will check blood sugar again in am
[2022-06-10] MEDS: NEPRO 1,000 ML BOTTLE GT PRN (05:43)
--- NOTE | 2022-06-10 07:12 | NUR ---
td rn notes Pts remains in bed awake remains on mechanical vent settings well tolerated. no sob no distress noted , v/s stable afebrile .will endorse to rn day shift for continuity of care
[2022-06-10] MEDS: LEVOTHYROXINE SODIUM 88 MCG TABLET GT SCH (07:29)
[2022-06-10] MEDS: SEVELAMER CARBONATE 800 MG POWD.PACK GT SCH ×3 (07:29→17:51)
--- NOTE | 2022-06-10 07:30 | NUR ---
RECEIVED PATIENT IN BED, ASLEEP BUT EASILY AROUSABLE TO TOUCH AND SOUND. HAS TRACH P #8 ON VENT SETTING OF AC 18, TV 400 FI02 40 PEEP 5. SALINE LOCK INTACT ON LEFT AC, FLUSHING WELL. ON NEPHRO GT FEEDING AT 45 CC/HR, NO RESIDUAL, AND IN PLACE, DRESSING DRY AND INTACT. WILL REPOSITION FOR COMFORT AND WILL CONTINUE TO MONITOR
[2022-06-10 07:40] LABS: BASOPHILS # (AUTO) 0.1 K/uL (0.0-0.2); BASOPHILS % (AUTO) 0.3 % (0.0-2.0); EOSINOPHILS % (AUTO) 0.1 % (0.0-6.0); HEMATOCRIT 31 % (33-45); HEMOGLOBIN 9.6 g/dL (11.5-14.8); LYMPHOCYTES # (AUTO) 1.4 K/uL (0.8-4.8); LYMPHOCYTES % (AUTO) 4.9 % (20.0-44.0); MEAN CORPUSCULAR HGB CONC 31 g/dl (31.0-36.0); MEAN CORPUSCULAR VOLUME 102 fL (82-100); MONOCYTES # (AUTO) 2.2 K/uL (0.1-1.30); MONOCYTES % (AUTO) 7.5 % (2.0-12.0); NEUTROPHILS # (AUTO) 25.8 K/uL (1.8-8.9); NEUTROPHILS % (AUTO) 87.2 % (43.0-81.0); PLATELET COUNT (AUTO) 227 K/uL (150-450); RED BLOOD CELL COUNT(AUTO) 3.05 MIL/uL (4.0-5.2); WHITE BLOOD COUNT (AUTO) 29.6 K/uL (4.3-11.0)
[2022-06-10 08:02] LABS: ALKALINE PHOSPHATASE 163 U/L (46-116); ASPARTATE AMINOTRANSFERASE 32 U/L (15-37); BILIRUBIN,TOTAL 0.4 mg/dL (0.2-1.0); CALCIUM, SERUM 9.3 mg/dL (8.5-10.1); CARBON DIOXIDE 24 mmol/L (21-32); CHLORIDE 96 mmol/L (98-107); CREATININE 3.1 mg/dL (0.6-1.3); GLUCOSE 170 mg/dL (74-106); POTASSIUM 4.5 mmol/L (3.5-5.1); SODIUM SERUM 132 mmol/L (136-145); TOTAL PROTEIN, SERUM 7.7 g/dL (6.4-8.2); UREA NITROGEN, BLOOD 46 mg/dL (7-18)
[2022-06-10] MEDS: CARVEDILOL 3.125 MG TABLET GT SCH ×2 (09:00→22:15)
[2022-06-10 09:04] LABS: ALANINE AMINOTRANSFERASE 7 U/L (12-78); ALBUMIN 2.1 g/dL (3.4-5.0)
[2022-06-10] MEDS: DOCUSATE SODIUM LIQ 100 MG/10 ML UDC NG SCH (09:09)
[2022-06-10] MEDS: HEPARIN SODIUM, PORCINE 5000 UNITS/1 ML VIAL SQ SCH ×2 (09:10→22:19)
[2022-06-10] MEDS: PANTOPRAZOLE 40 MG/PACK PACK GT SCH (09:11)
[2022-06-10] MEDS: ASPIRIN 81 MG TAB.CHEW GT SCH (09:11)
[2022-06-10] MEDS: VIT B CMPLX 3/FA/VIT C/BIOTIN 1 TAB TABLET GT SCH (09:11)
--- NOTE | 2022-06-10 09:30 | NUR ---
RN NOTES DUE MEDS GIVEN
[2022-06-10] MEDS: THERAHONEY GEL 1.5 OZ TUBE TP SCH (09:37)
[2022-06-10] MEDS: MEROPENEM 500 MG in IV NS 0.9% 50 ML IV SCH ×2 (09:38→22:14)
[2022-06-10] MEDS: ACETAMINOPHEN 325 MG TABLET PO PRN ×2 (11:45→22:21)
[2022-06-10] MEDS ORDERED: IOHEXOL-300 100 ML VIAL IV ONE (12:02)
[2022-06-10] MEDS ORDERED: IV NS 0.9% 250 ML IV ONE (12:02)
[2022-06-10] MEDS ORDERED: CT SWABBABLE VALVE TRANS SET 1 EA INFUS.SET MC ONE (12:02)
--- NOTE | 2022-06-10 14:30 | NUR ---
TEMP 97.4
--- NOTE | 2022-06-10 16:52 | NUR ---
RN NOTES INCIDENT REPORT ON FILE : Unique Id: [id number]
[2022-06-10] MEDS: MICAFUNGIN SODIUM 100 MG in IV NS 0.9% 100 ML IV SCH (18:26)
--- NOTE | 2022-06-10 18:59 | NUR ---
RN CLOSING NOTES: PATIENT IN BED, ASLEEP BUT EASILY AROUSABLE TO TOUCH AND SOUND. HAS TRACH P #8 ON VENT SETTING OF AC 18, TV 400 FI02 40 PEEP 5. SALINE LOCK ON LEFT ARM IS DISPLACED, NURSE TO REINSERT ANOTHER IV SITE. ON SR-ST WITH HR OF 113. ON NEPHRO GT FEEDING AT 45 CC/HR, NO RESIDUAL, AND IN PLACE, DRESSING DRY AND INTACT. TURNED AND REPOSITIONED EVERY 2 HOURS. WILL ENDORSE TO INCOMING SHIFT
--- NOTE | 2022-06-10 21:37 | NUR ---
ANJANA RN OPENING NOTE PT RECEIVED IN BED, OBTUNDED, NON-VERBAL, OPENS EYES. NOTED TO HAVE PORTEX #8, AC 18, TV 400, FIO2 40%, PEEP 5. CURRENT O2SAT OF 100% WITH NO S/S OF RESP DISTRESS, NON-LABORED AND EQUAL BREATHING, NO SOB OR COUGH, BUT NOTED TO BE TACHYPNEIC WITH RR OF 30-50S. ATTACHED TO EXTERNAL MONITOR, ST WITH HR OF 105. NO CHAHAL NOTED, PT ON DIAPER. IV ACCESS ON RIGHT HAND 22G, INTACT AND PATENT, FLUSHES EASILY WITH NO RESISTANCE, HAS NS TKO AT 10 ML/HR. GT DRESSING C/D/I WITH NEPRO RUNNING AT 45 ML/HR, NO RESIDUAL NOTED. BED IN LOWEST POSITION, CALL LIGHT WITHIN REACH, SIDE RAILS UP X3. WILL CONTINUE TO MONITOR THROUGHOUT THE NIGHT.
[2022-06-10] MEDS: OLANZAPINE 2.5 MG TABLET GT SCH (22:15)
--- NOTE | 2022-06-10 22:21 | NUR ---
RN Note Pt noted to have temp of 99.8 99.8. Pt administered tylenol 650 mg. Will monitor for effectiveness.
[2022-06-10] MEDS: INSULIN GLARGINE, 100 UNIT/ML CARTRIDGE SQ SCH (22:37)
[2022-06-11] VITALS: BP 92/42
[2022-06-11] MEDS: NEPRO 1,000 ML BOTTLE GT PRN (02:41)
[2022-06-11 04:00] VITALS: BP 129/54
[2022-06-11] MEDS: BLOOD SUGAR DIAGNOSTIC 1 EACH STRIP IN SCH ×4 (05:46→23:14)
[2022-06-11] MEDS: INSULIN REGULAR, HUMAN 100 UNIT/ML 3 ML VIAL SQ PRN ×4 (05:49→23:16)
--- NOTE | 2022-06-11 06:38 | NUR ---
ANJANA RN CLOSING NOTE PT REMAINS IN BED, OBTUNDED, NON-VERBAL, OPENS EYES. REMAINS ON SAME VENT SETTINGS WITH NO CHANGES, TOLERATED VENT SETTINGS WELL; S/S OF RESP DISTRESS, NON-LABORED AND EQUAL BREATHING, NO SOB OR COUGH; O2SAT RANGED FROM 97%-100%. ATTACHED TO EXTERNAL MONITOR, SR TO ST WITH HR RANGING FROM 89-120. IV ACCESS ON RIGHT HAND 22G, INTACT AND PATENT, FLUSHES EASILY WITH NO RESISTANCE, HAS NS TKO AT 10 ML/HR. GT DRESSING C/D/I WITH NEPRO RUNNING AT 45 ML/HR. WOUND CARE PERFORMED. ALL DUE MEDS ADMINISTERED DURING THE NIGHT. BED IN LOWEST POSITION, CALL LIGHT WITHIN REACH, SIDE RAILS UP X3. WILL CONTINUE TO MONITOR THROUGHOUT THE NIGHT. Addendum: 06/11/22 at 0648 by PRINCESS SUAREZ RN WILL ENDORSE TO [facility] NURSE TO CONTINUE CARE.
[2022-06-11 07:06] LABS: ALANINE AMINOTRANSFERASE 13 U/L (12-78); ALBUMIN 1.9 g/dL (3.4-5.0); ALKALINE PHOSPHATASE 161 U/L (46-116); ASPARTATE AMINOTRANSFERASE 28 U/L (15-37); BILIRUBIN,TOTAL 0.4 mg/dL (0.2-1.0); CALCIUM, SERUM 9.9 mg/dL (8.5-10.1); CARBON DIOXIDE 26 mmol/L (21-32); CHLORIDE 96 mmol/L (98-107); GLUCOSE 260 mg/dL (74-106); POTASSIUM 4.3 mmol/L (3.5-5.1); SODIUM SERUM 134 mmol/L (136-145); TOTAL PROTEIN, SERUM 7.6 g/dL (6.4-8.2)
[2022-06-11 07:24] LABS: BASOPHILS # (AUTO) 0.1 K/uL (0.0-0.2); BASOPHILS % (AUTO) 0.3 % (0.0-2.0); EOSINOPHILS % (AUTO) 0.1 % (0.0-6.0); HEMATOCRIT 32 % (33-45); HEMOGLOBIN 10.2 g/dL (11.5-14.8); LYMPHOCYTES # (AUTO) 1.5 K/uL (0.8-4.8); LYMPHOCYTES % (AUTO) 7.6 % (20.0-44.0); MEAN CORPUSCULAR HGB CONC 32 g/dl (31.0-36.0); MEAN CORPUSCULAR VOLUME 101 fL (82-100); MONOCYTES # (AUTO) 1.8 K/uL (0.1-1.30); MONOCYTES % (AUTO) 9.1 % (2.0-12.0); NEUTROPHILS # (AUTO) 15.9 K/uL (1.8-8.9); NEUTROPHILS % (AUTO) 82.9 % (43.0-81.0); PLATELET COUNT (AUTO) 211 K/uL (150-450); RED BLOOD CELL COUNT(AUTO) 3.17 MIL/uL (4.0-5.2); UREA NITROGEN, BLOOD 86 mg/dL (7-18); WHITE BLOOD COUNT (AUTO) 19.2 K/uL (4.3-11.0)
[2022-06-11 07:25] LABS: CREATININE 4.6 mg/dL (0.6-1.3)
[2022-06-11 08:00] VITALS: BP 103/46
[2022-06-11] MEDS: LEVOTHYROXINE SODIUM 88 MCG TABLET GT SCH (08:26)
[2022-06-11] MEDS: DOCUSATE SODIUM LIQ 100 MG/10 ML UDC NG SCH (08:27)
[2022-06-11] MEDS: ASPIRIN 81 MG TAB.CHEW GT SCH (08:28)
[2022-06-11] MEDS: HEPARIN SODIUM, PORCINE 5000 UNITS/1 ML VIAL SQ SCH ×2 (08:28→21:57)
[2022-06-11] MEDS: SEVELAMER CARBONATE 800 MG POWD.PACK GT SCH ×3 (08:29→17:23)
[2022-06-11] MEDS: PANTOPRAZOLE 40 MG/PACK PACK GT SCH (08:29)
[2022-06-11] MEDS: VIT B CMPLX 3/FA/VIT C/BIOTIN 1 TAB TABLET GT SCH (08:30)
[2022-06-11] MEDS: CARVEDILOL 3.125 MG TABLET GT SCH ×2 (08:31→21:56)
[2022-06-11] MEDS: MEROPENEM 500 MG in IV NS 0.9% 50 ML IV SCH ×2 (08:32→21:57)
[2022-06-11] MEDS: THERAHONEY GEL 1.5 OZ TUBE TP SCH (08:35)
--- NOTE | 2022-06-11 11:46 | NUR ---
WOUND CARE CONSULT: PT FOLLOWED BY SURGICAL TEAM FOR WOUND TREATMENT. DEFER TO PLASTIC SURGERY TEAM FOR TREATMENT PLAN. DISCUSSED SKIN PROTECTION WITH NURSING STAFF. FIRST STEP LOW AIRLOSS MATTRESS IS ON ORDER. MD IN AGREEMENT WITH PLAN OF CARE.
[2022-06-11 12:00] VITALS: BP 133/50
--- NOTE | 2022-06-11 13:46 | NUR ---
RN NOTE REPORT GIVEN TO JOHN MONSALVE FOR SALVATORE.
--- NOTE | 2022-06-11 13:48 | NUR ---
RN NOTES RECIEVED PATIENT REPORT FROM RADHA. PATIENT IN BED OBTUNDED WITH EYES OPEN. PATIENT ON TRACH P#8, AC:18, TV 400, FIO2 40, PEEP, 5 WITH OXYGEN SATURATION RANGING FROM 97-100%. ON EXTERNAL BODY ENGINEER READING NORMAL SINUS. SKIN ALTERATIONS DOCUMENTED IN PHYSICAL CHART. GASTRIC TUBE NOTED RUNNING NEPRO AT 45 MLS/HR. IV ACCESS NOTED ON RIGHT HAND 22 GAUGE, NO FLUIDS RUNNING. LEFT CHEST WALL PERMACATH NOTED, LEFT FEMORAL ACCESS NOTED. SAFETY MEASURES IMPLEMENTED, BED IN LOWEST POSITION, SIDE RAILS UP, CALL LIGHT WITHIN REACH. WILL CONTINUE PLAN OF CARE AND ANTICIPATE NEEDS.
[2022-06-11 16:00] VITALS: BP 151/59
[2022-06-11] MEDS: MORPHINE SULFATE INJ 2 MG/ML DISP.SYRIN IV PRN (16:02)
[2022-06-11] MEDS ORDERED: VANCOMYCIN 1 GM in IV D5W 250 ML IV PRN (17:00)
--- NOTE | 2022-06-11 18:31 | NUR ---
RN CLOSING NOTES PATIENT IN BED OBTUNDED WITH EYES OPEN. PATIENT ON TRACH P#8, AC:18, TV 400, FIO2 40, PEEP, 5 WITH OXYGEN SATURATION RANGING FROM 97-100%. ON EXTERNAL HORSERADISH GRINDER READING NORMAL SINUS. SKIN ALTERATIONS DOCUMENTED IN PHYSICAL CHART. GASTRIC TUBE NOTED RUNNING NEPRO AT 45 MLS/HR. IV ACCESS NOTED ON RIGHT HAND 22 GAUGE, NO FLUIDS RUNNING. LEFT CHEST WALL PERMACATH NOTED, LEFT FEMORAL ACCESS NOTED. SAFETY MEASURES IMPLEMENTED, BED IN LOWEST POSITION, SIDE RAILS UP, CALL LIGHT WITHIN REACH. WILL ENDORSE TO NIGHTSHIFT RN FOR CONTINUATION OF CARE.
[2022-06-11 20:00] VITALS: BP 142/58
[2022-06-11] MEDS: MUPIROCIN OINT 2% 22 GM TUBE NS SCH (21:57)
[2022-06-11] MEDS: OLANZAPINE 2.5 MG TABLET GT SCH (21:57)
[2022-06-11] MEDS: INSULIN GLARGINE, 100 UNIT/ML CARTRIDGE SQ SCH (22:58)
--- NOTE | 2022-06-11 23:26 | NUR ---
RN NOTES: PT'S BLOOD SUGAR 245, 15 UNITS OF LANTUS AND 6 UNITS OF REGULAR INSULIN GIVEN . NO S/S OF HYPER/HYPOGLYCEMIA. WILL CONTINUE TO MONITOR
[2022-06-12] VITALS: BP 155/45
[2022-06-12 04:00] VITALS: BP 129/58
[2022-06-12] MEDS: BLOOD SUGAR DIAGNOSTIC 1 EACH STRIP IN SCH ×5 (05:35→23:20)
[2022-06-12] MEDS: INSULIN REGULAR, HUMAN 100 UNIT/ML 3 ML VIAL SQ PRN ×4 (05:38→23:22)
--- NOTE | 2022-06-12 05:39 | NUR ---
RN NOTES: PT'S BLOOD SUGAR 177, 3 UNITS OF REGULAR INSULIN GIVEN . NO S/S OF HYPER/HYPOGLYCEMIA. WILL CONTINUE TO MONITOR
--- NOTE | 2022-06-12 06:43 | NUR ---
RN CLOSING NOTES PATIENT IN BED, BOTH EYES CLOSED, OBTUNDED. PATIENT IS ON TRACH TO VENT SETTINGS. TRACH P#8, AC:18, TV 400, FIO2 40, PEEP, 5 O2 SAT 98%. IV ACCESS ON RIGHT HAND #22 GAUGE INTACT AND PATENT. NO S/S OF INFILTRATIONS. LEFT CHEST WALL PERMACATH NOTED, LEFT FEMORAL ACCESS INTACT. NO FACIAL GRIMACING NOTED. NO ACUTE DISTRESS. ALL DUE MEDS GIVEN ORDERED. ALL SAFETY MEASURES IN PLACE. BED IN LOWEST POSITION AND LOCKED. SIDE RAILS UP X3, PLACE CALL LIGHT WITHIN REACH. WILL ENDORSE TO MORNING SHIFT NURSE
[2022-06-12 07:02] LABS: BASOPHILS # (AUTO) 0.1 K/uL (0.0-0.2); BASOPHILS % (AUTO) 0.7 % (0.0-2.0); EOSINOPHILS % (AUTO) 0.6 % (0.0-6.0); HEMATOCRIT 33 % (33-45); HEMOGLOBIN 10.3 g/dL (11.5-14.8); LYMPHOCYTES # (AUTO) 1.6 K/uL (0.8-4.8); LYMPHOCYTES % (AUTO) 9.3 % (20.0-44.0); MEAN CORPUSCULAR HGB CONC 31 g/dl (31.0-36.0); MEAN CORPUSCULAR VOLUME 101 fL (82-100); MONOCYTES # (AUTO) 1.5 K/uL (0.1-1.30); MONOCYTES % (AUTO) 8.3 % (2.0-12.0); NEUTROPHILS # (AUTO) 14.3 K/uL (1.8-8.9); NEUTROPHILS % (AUTO) 81.1 % (43.0-81.0); PLATELET COUNT (AUTO) 260 K/uL (150-450); RED BLOOD CELL COUNT(AUTO) 3.25 MIL/uL (4.0-5.2); WHITE BLOOD COUNT (AUTO) 17.7 K/uL (4.3-11.0)
[2022-06-12] MEDS: LEVOTHYROXINE SODIUM 88 MCG TABLET GT SCH (07:06)
--- NOTE | 2022-06-12 07:20 | NUR ---
RN OPENING NOTES RECEIVED PATIENT IN BED, OBTUNDED. PATIENT IS ON TRACH TO VENT SETTINGS, TOLERATING WELL WITH NO RESP DISTRESS NOTED. TRACH P#8, AC:18, TV 400, FIO2 40, PEEP, 5 O2 SAT 99%. RIGHT HAND #22 GAUGE INTACT AND PATENT. LEFT CHEST WALL PERMA-CATH NOTED, LEFT FEMORAL ACCESS INTACT. NO FACIAL GRIMACING NOTED. NO ACUTE DISTRESS. ALL SAFETY MEASURES IN PLACE. BED IN LOWEST POSITION AND WHEELS LOCKED. SIDE RAILS UP X3, CALL LIGHT WITHIN REACH. WILL CONTINUE TO MONITOR
[2022-06-12 07:51] LABS: ALANINE AMINOTRANSFERASE 8 U/L (12-78); ALBUMIN 1.7 g/dL (3.4-5.0); ALKALINE PHOSPHATASE 140 U/L (46-116); ASPARTATE AMINOTRANSFERASE 33 U/L (15-37); BILIRUBIN,TOTAL 0.4 mg/dL (0.2-1.0); CALCIUM, SERUM 9.9 mg/dL (8.5-10.1); CARBON DIOXIDE 23 mmol/L (21-32); CHLORIDE 96 mmol/L (98-107); CREATININE 5.6 mg/dL (0.6-1.3); GLUCOSE 187 mg/dL (74-106); POTASSIUM 5.3 mmol/L (3.5-5.1); SODIUM SERUM 134 mmol/L (136-145); TOTAL PROTEIN, SERUM 7.4 g/dL (6.4-8.2)
[2022-06-12 07:58] LABS: UREA NITROGEN, BLOOD 118 mg/dL (7-18)
[2022-06-12 08:00] VITALS: BP 100/56
[2022-06-12] MEDS: SEVELAMER CARBONATE 800 MG POWD.PACK GT SCH ×3 (08:00→17:13)
[2022-06-12] MEDS: ASPIRIN 81 MG TAB.CHEW GT SCH (08:30)
[2022-06-12] MEDS: CARVEDILOL 3.125 MG TABLET GT SCH ×2 (08:30→22:05)
[2022-06-12] MEDS: PANTOPRAZOLE 40 MG/PACK PACK GT SCH (08:31)
[2022-06-12] MEDS: DOCUSATE SODIUM LIQ 100 MG/10 ML UDC NG SCH (08:31)
[2022-06-12] MEDS: VIT B CMPLX 3/FA/VIT C/BIOTIN 1 TAB TABLET GT SCH (08:31)
[2022-06-12] MEDS: MUPIROCIN OINT 2% 22 GM TUBE NS SCH ×2 (08:33→21:52)
[2022-06-12] MEDS: THERAHONEY GEL 1.5 OZ TUBE TP SCH (08:33)
--- NOTE | 2022-06-12 09:00 | NUR ---
RN NOTES HD PERFORMED. 1L OUT. NO COMPLICATIONS NOTED. WILL CONTINUE MONITORING
[2022-06-12] MEDS: HEPARIN SODIUM, PORCINE 5000 UNITS/1 ML VIAL SQ SCH ×2 (10:00→21:40)
[2022-06-12] MEDS: MEROPENEM 500 MG in IV NS 0.9% 50 ML IV SCH ×2 (10:18→21:36)
[2022-06-12 12:00] VITALS: BP 110/60
[2022-06-12] MEDS: NEPRO 1,000 ML BOTTLE GT PRN (12:53)
[2022-06-12 16:00] VITALS: BP 146/62
[2022-06-12] MEDS ORDERED: VANCOMYCIN HCL 0.75 GM in IV D5W 250 ML IV ONE (17:00)
--- NOTE | 2022-06-12 17:55 | NUR ---
RT NOTE Patient received on mechanical vent with ordered settings, alarms on and audible.Suctioned moderate, thick, pale yellow secretions via trach. Ambu bag and back up trach by the bedside. Trach tube in place, patent, and secured with trach tie. Vent plugged in to the red outlet. No distress and patient stable at this time.
--- NOTE | 2022-06-12 18:58 | NUR ---
RN CLOSING NOTES PATIENT IN BED, OBTUNDED. PATIENT IS ON TRACH TO VENT SETTINGS, TOLERATING WELL WITH NO RESP DISTRESS NOTED. TRACH P#8, AC:18, TV 400, FIO2 40, PEEP, 5 O2 SAT 100%. RIGHT HAND #22 GAUGE INTACT AND PATENT. LEFT CHEST WALL PERMA-CATH NOTED, LEFT FEMORAL ACCESS INTACT. NO FACIAL GRIMACING NOTED. NO ACUTE DISTRESS. PATIENT REMAINED AFEBRILE THROUGH OUT SHIFT. ALL SAFETY MEASURES MAINTAINED. BED IN LOWEST POSITION AND WHEELS LOCKED. SIDE RAILS UP X3, CALL LIGHT WITHIN REACH. WILL ENDORSE TO THE SUPERVISOR DENTAL LABORATORY NURSE FOR SLAVATORE
--- NOTE | 2022-06-12 19:30 | NUR ---
ASPHALT LAYER OPENING NOTE RECEIVED PATIENT IN BED, OBTUNDED. PATIENT IS ON TRACH TO VENT SETTINGS, TOLERATING WELL WITH NO RESP DISTRESS NOTED AT THIS TIME. TRACH P#8, AC:18, TV 400, FIO2 40, PEEP, 5 O2 SATING AT 100%. IV ACCESS IS NOTED ON RIGHT HAND #22 GAUGE INTACT AND PATENT, LEFT CHEST WALL PERMA-CATH NOTED, LEFT FEMORAL ACCESS INTACT. NO FACIAL GRIMACING NOTED. GTF RUNNING NEPRO AT 45 CC/HR. ALL SAFETY MEASURES IN PLACE. BED IN LOWEST POSITION AND WHEELS LOCKED. SIDE RAILS UP X3, CALL LIGHT WITHIN REACH. WILL CONTINUE TO MONITOR THE PT.
[2022-06-12 20:00] VITALS: BP 169/66
[2022-06-12] MEDS: OLANZAPINE 2.5 MG TABLET GT SCH (21:36)
--- NOTE | 2022-06-12 21:58 | NUR ---
RN NOTE PT TEMP IS 101.1. NO S/SX OF ACUTE DISTRESS NOTED AT THIS TIME. GAVE TYLENOL PRN ORDERED. COOLING MEASURES PROVIDED. WILL CONTINUE TO MONITOR PT CLOSELY.
[2022-06-12] MEDS: ACETAMINOPHEN 325 MG TABLET PO PRN (22:07)
--- NOTE | 2022-06-12 23:10 | NUR ---
RN NOTE PT TEMP HAS GONE DOWN TO 99.9. WILL CONTINUE TO MONITOR PT.
[2022-06-12] MEDS: INSULIN GLARGINE, 100 UNIT/ML CARTRIDGE SQ SCH (23:20)
--- NOTE | 2022-06-12 23:30 | NUR ---
RN NOTE DUE MEDS GIVEN. PT SHOWS NO APPARENT DISTRESS.
[2022-06-13] VITALS: BP 175/57
[2022-06-13 04:00] VITALS: BP 124/98
[2022-06-13] MEDS: BLOOD SUGAR DIAGNOSTIC 1 EACH STRIP IN SCH ×4 (05:03→23:33)
[2022-06-13] MEDS: INSULIN REGULAR, HUMAN 100 UNIT/ML 3 ML VIAL SQ PRN ×4 (05:05→23:35)
[2022-06-13] MEDS: LEVOTHYROXINE SODIUM 88 MCG TABLET GT SCH (06:14)
--- NOTE | 2022-06-13 07:28 | NUR ---
RN OPENING NOTE RECEIVED PATIENT IN BED, OBTUNDED. PATIENT IS ON TRACH TO VENT SETTINGS, TOLERATING WELL WITH NO RESP DISTRESS NOTED AT THIS TIME. TRACH P#8, AC:18, TV 400, FIO2 30, PEEP, 5 O2 SATING AT 100%. IV ACCESS IS NOTED ON RIGHT HAND #22 GAUGE INTACT AND PATENT, LEFT CHEST WALL PERMA-CATH NOTED, LEFT FEMORAL ACCESS INTACT. GASTRIC TUBE FEEDING RUNNING NEPRO AT 45 CC/HR. WILL CONTINUE PLAN OF CARE AND ANTICIPATE NEEDS.
--- NOTE | 2022-06-13 07:34 | NUR ---
BOOT REPAIRER CLOSING NOTE NO SIGNIFICANT CHANGES THROUGHOUT THE NIGHT. VS STABLE. ALL DUE MEDS GIVEN. NEED ATTENDED TO. SAFETY PRECAUTIONS MAINTAINED: BED LOCKED IN LOW POSITION. CALL LIGHT WITHIN REACH. SIDE RAILS UP X 3. WILL ENDORSE TO AM SHIFT NURSE FOR SALVATORE.
[2022-06-13 08:00] VITALS: BP 109/51
[2022-06-13 08:08] LABS: BASOPHILS # (AUTO) 0.1 K/uL (0.0-0.2); BASOPHILS % (AUTO) 0.5 % (0.0-2.0); HEMATOCRIT 31 % (33-45); HEMOGLOBIN 9.8 g/dL (11.5-14.8); LYMPHOCYTES # (AUTO) 1.9 K/uL (0.8-4.8); LYMPHOCYTES % (AUTO) 9.3 % (20.0-44.0); MEAN CORPUSCULAR HGB CONC 31 g/dl (31.0-36.0); MEAN CORPUSCULAR VOLUME 101 fL (82-100); MONOCYTES # (AUTO) 1.4 K/uL (0.1-1.30); NEUTROPHILS # (AUTO) 16.6 K/uL (1.8-8.9); NEUTROPHILS % (AUTO) 82.2 % (43.0-81.0); PLATELET COUNT (AUTO) 289 K/uL (150-450); WHITE BLOOD COUNT (AUTO) 20.2 K/uL (4.3-11.0)
[2022-06-13] MEDS: DOCUSATE SODIUM LIQ 100 MG/10 ML UDC NG SCH (08:11)
[2022-06-13] MEDS: MEROPENEM 500 MG in IV NS 0.9% 50 ML IV SCH ×2 (08:11→20:27)
[2022-06-13] MEDS: SEVELAMER CARBONATE 800 MG POWD.PACK GT SCH ×3 (08:11→17:57)
[2022-06-13] MEDS: VIT B CMPLX 3/FA/VIT C/BIOTIN 1 TAB TABLET GT SCH (08:11)
[2022-06-13] MEDS: PANTOPRAZOLE 40 MG/PACK PACK GT SCH (08:11)
[2022-06-13] MEDS: ASPIRIN 81 MG TAB.CHEW GT SCH (08:12)
[2022-06-13] MEDS: HEPARIN SODIUM, PORCINE 5000 UNITS/1 ML VIAL SQ SCH ×2 (08:13→20:28)
[2022-06-13] MEDS: MUPIROCIN OINT 2% 22 GM TUBE NS SCH ×2 (08:14→20:32)
[2022-06-13] MEDS: THERAHONEY GEL 1.5 OZ TUBE TP SCH (08:14)
[2022-06-13 08:34] LABS: MAGNESIUM 2.9 mg/dL (1.8-2.4); PHOSPHORUS 1.9 mg/dL (2.5-4.9)
[2022-06-13 08:56] LABS: ALANINE AMINOTRANSFERASE 9 U/L (12-78); ALKALINE PHOSPHATASE 170 U/L (46-116); ASPARTATE AMINOTRANSFERASE 29 U/L (15-37); BILIRUBIN,TOTAL 0.3 mg/dL (0.2-1.0); CALCIUM, SERUM 9.3 mg/dL (8.5-10.1); CARBON DIOXIDE 21 mmol/L (21-32); CHLORIDE 94 mmol/L (98-107); CREATININE 4.9 mg/dL (0.6-1.3); GLUCOSE 214 mg/dL (74-106); SODIUM SERUM 133 mmol/L (136-145); TOTAL PROTEIN, SERUM 7.5 g/dL (6.4-8.2)
[2022-06-13 09:00] LABS: UREA NITROGEN, BLOOD 98 mg/dL (7-18)
[2022-06-13 09:11] LABS: ALBUMIN 1.5 g/dL (3.4-5.0)
[2022-06-13] MEDS: CARVEDILOL 3.125 MG TABLET GT SCH ×2 (09:15→20:27)
[2022-06-13 12:00] VITALS: BP 115/57
[2022-06-13] MEDS: NEPRO 1,000 ML BOTTLE GT PRN (12:54)
[2022-06-13] MEDS: ALBUMIN 25% 25 GM in PREMIX 1 EA IV PRN (15:22)
[2022-06-13 16:00] VITALS: BP 103/59
[2022-06-13] MEDS ORDERED: NEUTRA PHOS 1 POWD.PACKET GT ONE (16:00)
--- NOTE | 2022-06-13 18:52 | NUR ---
RN CLOSING NOTE PATIENT IN BED, OBTUNDED. PATIENT IS ON TRACH TO VENT SETTINGS, TOLERATING WELL WITH NO RESP DISTRESS NOTED AT THIS TIME. TRACH P#8, AC:18, TV 400, FIO2 30, PEEP, 5 O2 SATING AT 100%. IV ACCESS IS NOTED ON RIGHT HAND #22 GAUGE INTACT AND PATENT, LEFT CHEST WALL PERMA-CATH NOTED, LEFT FEMORAL ACCESS INTACT. GASTRIC TUBE FEEDING RUNNING NEPRO AT 45 CC/HR. SAFETY MEASURES IN PLACE, BED IN LOWEST POSITION, SIDE RAILS UP, CALL LIGHT WITHIN REACH. ALL DUE MEDS GIVEN, KEPT CLEAN AND DRY THROUGHOUT SHIFT. WILL ENDORSE TO NIGHTSHIFT RN FOR CONTINUATION OF CARE.
[2022-06-13 20:00] VITALS: BP 126/59
[2022-06-13] MEDS: ACETAMINOPHEN 325 MG TABLET PO PRN (20:29)
[2022-06-13] MEDS: OLANZAPINE 2.5 MG TABLET GT SCH (21:55)
[2022-06-13] MEDS: INSULIN GLARGINE, 100 UNIT/ML CARTRIDGE SQ SCH (21:57)
[2022-06-14] VITALS: BP 120/49
[2022-06-14 04:00] VITALS: BP 145/68
[2022-06-14] MEDS: ACETAMINOPHEN 325 MG TABLET PO PRN ×2 (04:14→17:25)
[2022-06-14] MEDS: BLOOD SUGAR DIAGNOSTIC 1 EACH STRIP IN SCH ×4 (05:57→23:58)
[2022-06-14] MEDS: LEVOTHYROXINE SODIUM 88 MCG TABLET GT SCH (06:03)
[2022-06-14] MEDS: INSULIN REGULAR, HUMAN 100 UNIT/ML 3 ML VIAL SQ PRN ×3 (06:04→17:32)
--- NOTE | 2022-06-14 06:20 | NUR ---
RN CLOSING NOTE PATIENT IS NODS HEAD. ON MECHANICAL VENT, NO S/S PAIN NOTED. SINUS RHTYHM ON THE MONITOR. PATIENT HAS TACHYCARDIA 110S. PRN TYLENOL GIVEN X2 FOR TMAX 101.3 AXILLARY. COOLING MEASURES DONE. WOUND CARE DONE ORDERED. GTUBE FEEDING TOLERATED, NO RESIDUAL. BLOOD SUGAR COVERED PER SLIDING SCALE.
[2022-06-14 06:37] LABS: BASOPHILS % (AUTO) 0.2 % (0.0-2.0); EOSINOPHILS % (AUTO) 0.8 % (0.0-6.0); HEMATOCRIT 28 % (33-45); HEMOGLOBIN 8.7 g/dL (11.5-14.8); LYMPHOCYTES # (AUTO) 1.3 K/uL (0.8-4.8); LYMPHOCYTES % (AUTO) 8.1 % (20.0-44.0); MEAN CORPUSCULAR HGB CONC 32 g/dl (31.0-36.0); MEAN CORPUSCULAR VOLUME 100 fL (82-100); MONOCYTES # (AUTO) 1.2 K/uL (0.1-1.30); MONOCYTES % (AUTO) 7.7 % (2.0-12.0); NEUTROPHILS # (AUTO) 13.4 K/uL (1.8-8.9); NEUTROPHILS % (AUTO) 83.2 % (43.0-81.0); PLATELET COUNT (AUTO) 329 K/uL (150-450); RED BLOOD CELL COUNT(AUTO) 2.75 MIL/uL (4.0-5.2); WHITE BLOOD COUNT (AUTO) 16.1 K/uL (4.3-11.0)
--- NOTE | 2022-06-14 07:32 | NUR ---
RN OPENING NOTE RECEIVED PATIENT IN BED, OBTUNDED. PATIENT IS ON TRACH TO VENT SETTINGS, TOLERATING WELL WITH NO RESP DISTRESS NOTED AT THIS TIME. TRACH P#8, AC:18, TV 400, FIO2 30, PEEP, 5 O2 SATING AT 100%. LEFT CHEST WALL PERMA-CATH NOTED, LEFT FEMORAL PICC LINE ACCESS INTACT. GASTRIC TUBE FEEDING RUNNING NEPRO AT 45 CC/HR. SAFETY MEASURES IMPLEMENTED, BED IN LOWEST POSITION, SIDE RAILS UP, CALL LIGHT WITHIN REACH, BED ALARM ON. WILL CONTINUE PLAN OF CARE AND ANTICIPATE NEEDS.
[2022-06-14 07:58] LABS: ALANINE AMINOTRANSFERASE 12 U/L (12-78); ALBUMIN 1.9 g/dL (3.4-5.0); ALKALINE PHOSPHATASE 173 U/L (46-116); ASPARTATE AMINOTRANSFERASE 23 U/L (15-37); BILIRUBIN,TOTAL 0.4 mg/dL (0.2-1.0); CALCIUM, SERUM 9.2 mg/dL (8.5-10.1); CARBON DIOXIDE 26 mmol/L (21-32); CHLORIDE 97 mmol/L (98-107); CREATININE 4.1 mg/dL (0.6-1.3); GLUCOSE 238 mg/dL (74-106); MAGNESIUM 2.5 mg/dL (1.8-2.4); PHOSPHORUS 3.2 mg/dL (2.5-4.9); POTASSIUM 4.6 mmol/L (3.5-5.1); SODIUM SERUM 134 mmol/L (136-145); TOTAL PROTEIN, SERUM 7.4 g/dL (6.4-8.2); UREA NITROGEN, BLOOD 75 mg/dL (7-18)
[2022-06-14 08:00] VITALS: BP 124/58
[2022-06-14] MEDS: ASPIRIN 81 MG TAB.CHEW GT SCH (08:18)
[2022-06-14] MEDS: DOCUSATE SODIUM LIQ 100 MG/10 ML UDC NG SCH (08:18)
[2022-06-14] MEDS: SEVELAMER CARBONATE 800 MG POWD.PACK GT SCH ×3 (08:19→17:25)
[2022-06-14] MEDS: CARVEDILOL 3.125 MG TABLET GT SCH ×2 (08:19→21:00)
[2022-06-14] MEDS: PANTOPRAZOLE 40 MG/PACK PACK GT SCH (08:19)
[2022-06-14] MEDS: VIT B CMPLX 3/FA/VIT C/BIOTIN 1 TAB TABLET GT SCH (08:19)
[2022-06-14] MEDS: HEPARIN SODIUM, PORCINE 5000 UNITS/1 ML VIAL SQ SCH ×2 (08:20→21:48)
[2022-06-14] MEDS: THERAHONEY GEL 1.5 OZ TUBE TP SCH (08:21)
[2022-06-14] MEDS: MUPIROCIN OINT 2% 22 GM TUBE NS SCH ×2 (08:21→21:00)
[2022-06-14] MEDS: MEROPENEM 500 MG in IV NS 0.9% 50 ML IV SCH ×2 (08:21→21:12)
[2022-06-14 12:00] VITALS: BP 121/61
[2022-06-14] MEDS: NEPRO 1,000 ML BOTTLE GT PRN (12:25)
[2022-06-14 16:00] VITALS: BP 133/55
--- NOTE | 2022-06-14 18:53 | NUR ---
RN CLOSING NOTE RECEIVED PATIENT IN BED, OBTUNDED. PATIENT IS ON TRACH TO VENT SETTINGS, TOLERATING WELL WITH NO RESP DISTRESS NOTED AT THIS TIME. TRACH P#8, AC:18, TV 400, FIO2 30, PEEP, 5 O2 SATING AT 100%. LEFT CHEST WALL PERMA-CATH NOTED, LEFT FEMORAL PICC LINE ACCESS INTACT. GASTRIC TUBE FEEDING RUNNING NEPRO AT 45 CC/HR. SAFETY MEASURES IMPLEMENTED, BED IN LOWEST POSITION, SIDE RAILS UP, CALL LIGHT WITHIN REACH, BED ALARM ON. ALL DUE MEDS GIVEN, KEPT CLEAN AND DRY THROUGHOUT SHIFT. WILL ENDORSE TO NIGHTSHIFT RN FOR CONTINUATION OF CARE.
--- NOTE | 2022-06-14 19:10 | NUR ---
RN OPENING NOTE RECEIVED PATIENT IN BED, OBTUNDED. PATIENT IS ON TRACH TO VENT WITH PRESCRIBED SETTINGS, TOLERATING WELL WITH NO RESP DISTRESS NOTED AT THIS TIME. TRACH P#8, AC:18, TV 400, FIO2 30, PEEP, 5 O2 SATING AT 100%. LEFT CHEST WALL PERMA-CATH NOTED, LEFT FEMORAL PICC LINE ACCESS INTACT. GASTRIC TUBE FEEDING RUNNING NEPRO AT 45 CC/HR. SAFETY MEASURES IMPLEMENTED, BED IN LOWEST POSITION, SIDE RAILS UP, CALL LIGHT WITHIN REACH, BED ALARM ON. WILL CONTINUE PLAN OF CARE AND ANTICIPATE NEEDS.
[2022-06-14 20:00] VITALS: BP 106/52
[2022-06-14] MEDS: OLANZAPINE 2.5 MG TABLET GT SCH (21:12)
[2022-06-14] MEDS: INSULIN GLARGINE, 100 UNIT/ML CARTRIDGE SQ SCH (22:40)
[2022-06-15] VITALS: BP 121/53
[2022-06-15] MEDS: INSULIN REGULAR, HUMAN 100 UNIT/ML 3 ML VIAL SQ PRN ×3 (00:01→12:57)
[2022-06-15 04:00] VITALS: BP 118/51
--- NOTE | 2022-06-15 04:10 | NUR ---
RN NOTES PATIENT NOTED WITH 101 TEMPERATURE. COOLING MEASURES RENDERED. WILL CONTINUE TO MONITOR
[2022-06-15] MEDS: ACETAMINOPHEN 325 MG TABLET PO PRN ×2 (04:53→21:39)
--- NOTE | 2022-06-15 04:55 | NUR ---
RN NOTES STILL WITH 100 TEMPERATURE. TYLENOL 650 MG GIVEN. CONTINUE COOLING ,MEASURES RENDERED.
[2022-06-15] MEDS: BLOOD SUGAR DIAGNOSTIC 1 EACH STRIP IN SCH ×3 (05:56→17:50)
[2022-06-15 06:27] LABS: BASOPHILS % (AUTO) 0.2 % (0.0-2.0); EOSINOPHILS % (AUTO) 0.7 % (0.0-6.0); HEMATOCRIT 29 % (33-45); HEMOGLOBIN 9.3 g/dL (11.5-14.8); LYMPHOCYTES # (AUTO) 1.8 K/uL (0.8-4.8); LYMPHOCYTES % (AUTO) 9.5 % (20.0-44.0); MEAN CORPUSCULAR HGB CONC 32 g/dl (31.0-36.0); MEAN CORPUSCULAR VOLUME 99 fL (82-100); MONOCYTES # (AUTO) 1.2 K/uL (0.1-1.30); MONOCYTES % (AUTO) 6.3 % (2.0-12.0); NEUTROPHILS # (AUTO) 15.4 K/uL (1.8-8.9); NEUTROPHILS % (AUTO) 83.3 % (43.0-81.0); PLATELET COUNT (AUTO) 415 K/uL (150-450); WHITE BLOOD COUNT (AUTO) 18.5 K/uL (4.3-11.0)
--- NOTE | 2022-06-15 06:38 | NUR ---
RN NOTES TEMPERATURE WENT DOWN TO 98.3. WILL CONTINUE TO MONITOR THE PATIENT
--- NOTE | 2022-06-15 06:47 | NUR ---
RN NOTES PATIENT ASLEEP. STILL ON VENTILATOR WITH PRESCRIBED SETTINGS. GT PATENT CONNECTED TO CONTINUOS GT FEEDING. PERMACATH ON R CHEST WALL PATENT DRESSING INTACT, L FEMORAL SAMSON CATH INTACT. L UA MIDLINE PATENT FLUSHES WELL. ALL DUE MEDS GIVEN ORDERED. PATIENT HAS AN EPISODE OF FEVER. COOLING MEASURES RENDERED. ALL SAFETY MEASURES IN PLACE AT ALL TIMES. HOB ELEVATED. CALL LIGHT WITHIN REACH. WILL ENDORSED TO MORNING SHIFT FOR SALVATORE
[2022-06-15 06:51] LABS: ALANINE AMINOTRANSFERASE 11 U/L (12-78); ALBUMIN 1.9 g/dL (3.4-5.0); ALKALINE PHOSPHATASE 205 U/L (46-116); ASPARTATE AMINOTRANSFERASE 23 U/L (15-37); BILIRUBIN,TOTAL 0.4 mg/dL (0.2-1.0); CALCIUM, SERUM 9.4 mg/dL (8.5-10.1); CARBON DIOXIDE 23 mmol/L (21-32); CHLORIDE 93 mmol/L (98-107); GLUCOSE 249 mg/dL (74-106); MAGNESIUM 2.7 mg/dL (1.8-2.4); PHOSPHORUS 3.4 mg/dL (2.5-4.9); POTASSIUM 5.1 mmol/L (3.5-5.1); SODIUM SERUM 131 mmol/L (136-145); TOTAL PROTEIN, SERUM 7.6 g/dL (6.4-8.2)
[2022-06-15 07:50] LABS: UREA NITROGEN, BLOOD 96 mg/dL (7-18)
[2022-06-15 08:00] VITALS: BP 132/55
[2022-06-15] MEDS: ASPIRIN 81 MG TAB.CHEW GT SCH (09:47)
[2022-06-15] MEDS: LEVOTHYROXINE SODIUM 88 MCG TABLET GT SCH (09:47)
[2022-06-15] MEDS: PANTOPRAZOLE 40 MG/PACK PACK GT SCH (09:48)
[2022-06-15] MEDS: CARVEDILOL 3.125 MG TABLET GT SCH ×2 (09:48→21:35)
[2022-06-15] MEDS: VIT B CMPLX 3/FA/VIT C/BIOTIN 1 TAB TABLET GT SCH (09:48)
[2022-06-15] MEDS: SEVELAMER CARBONATE 800 MG POWD.PACK GT SCH ×3 (09:48→16:49)
[2022-06-15] MEDS: HEPARIN SODIUM, PORCINE 5000 UNITS/1 ML VIAL SQ SCH ×2 (09:50→21:36)
[2022-06-15] MEDS: MEROPENEM 500 MG in IV NS 0.9% 50 ML IV SCH ×2 (09:50→21:35)
[2022-06-15] MEDS: DOCUSATE SODIUM LIQ 100 MG/10 ML UDC NG SCH (09:50)
[2022-06-15] MEDS: MUPIROCIN OINT 2% 22 GM TUBE NS SCH ×2 (09:51→21:43)
[2022-06-15] MEDS: THERAHONEY GEL 1.5 OZ TUBE TP SCH (09:52)
[2022-06-15] MEDS: IV NS 0.9% 250 ML IV PRN (09:56)
[2022-06-15 12:00] VITALS: BP 128/69
--- NOTE | 2022-06-15 15:39 | NUR ---
HD DONE AT THIS TIME, 1L REMOVED
[2022-06-15 16:00] VITALS: BP 140/52
[2022-06-15] MEDS: NEPRO 1,000 ML BOTTLE GT PRN (17:15)
[2022-06-15 20:00] VITALS: BP 131/74
--- NOTE | 2022-06-15 20:10 | NUR ---
RN NOTES PATIENT NOTED WITH 101.6 TEMPERATURE. COOLING MEASURES RENDERED. DUE MEDICATION GIVEN WILL CONTINUE TO MONITOR THE PATIENT
[2022-06-15] MEDS: OLANZAPINE 2.5 MG TABLET GT SCH (21:36)
[2022-06-15] MEDS: INSULIN GLARGINE, 100 UNIT/ML CARTRIDGE SQ SCH (21:48)
[2022-06-16] VITALS: BP 95/60
--- NOTE | 2022-06-16 00:10 | NUR ---
RN NOTES PATIENT TEMPERATURE 98.6. BS 188 DUE REGULAR INSULIN PER SLIDING SCALE GIVEN. WILL CONTINUE TO MONITOR.
[2022-06-16] MEDS: BLOOD SUGAR DIAGNOSTIC 1 EACH STRIP IN SCH ×4 (00:34→17:49)
[2022-06-16] MEDS: INSULIN REGULAR, HUMAN 100 UNIT/ML 3 ML VIAL SQ PRN ×4 (00:42→18:28)
[2022-06-16 04:00] VITALS: BP 121/68
[2022-06-16 06:46] LABS: BASOPHILS % (AUTO) 0.3 % (0.0-2.0); EOSINOPHILS % (AUTO) 0.9 % (0.0-6.0); HEMATOCRIT 28 % (33-45); HEMOGLOBIN 8.6 g/dL (11.5-14.8); LYMPHOCYTES # (AUTO) 1.6 K/uL (0.8-4.8); LYMPHOCYTES % (AUTO) 10.4 % (20.0-44.0); MEAN CORPUSCULAR HGB CONC 32 g/dl (31.0-36.0); MEAN CORPUSCULAR VOLUME 100 fL (82-100); MONOCYTES # (AUTO) 1.2 K/uL (0.1-1.30); MONOCYTES % (AUTO) 7.9 % (2.0-12.0); NEUTROPHILS # (AUTO) 12.7 K/uL (1.8-8.9); NEUTROPHILS % (AUTO) 80.5 % (43.0-81.0); PLATELET COUNT (AUTO) 449 K/uL (150-450); RED BLOOD CELL COUNT(AUTO) 2.76 MIL/uL (4.0-5.2); WHITE BLOOD COUNT (AUTO) 15.8 K/uL (4.3-11.0)
[2022-06-16 07:07] LABS: CALCIUM, SERUM 9.2 mg/dL (8.5-10.1); CARBON DIOXIDE 26 mmol/L (21-32); CHLORIDE 94 mmol/L (98-107); CREATININE 3.4 mg/dL (0.6-1.3); GLUCOSE 205 mg/dL (74-106); MAGNESIUM 2.3 mg/dL (1.8-2.4); PHOSPHORUS 3.7 mg/dL (2.5-4.9); POTASSIUM 4.4 mmol/L (3.5-5.1); SODIUM SERUM 132 mmol/L (136-145); UREA NITROGEN, BLOOD 56 mg/dL (7-18)
--- NOTE | 2022-06-16 07:30 | NUR ---
RN OPENING NOTE PATIENT IS IN BED, AWAKE, ALERT ORIENTED X 1. WITH TRACHEOSTOMY TO MECHANICAL VENTILATOR WITH THE FOLLOWING SETTINGS:AC MODE, RR 18, TV 400, FIO2 30%, PEEP 5. BREATHING UNLABORED, DENIES PAIN, AND NOT IN ANY FORM OF DISTRESS. SINUS RHYTHM ON STOCK DRIVER. WITH G-TUBE INFUSING WITH NEPHRO 45 CC/HR. WITH RIGHT UPPER ARM MIDLINE SALINE LOCK, INTACT AND PATENT. BED IS LOCKED IN LOWEST POSITION, 3 SIDE RAILS UP, CALL LIGHT WITHIN REACH. WILL CONTINUE TO MONITOR THROUGHOUT SHIFT.
[2022-06-16 08:00] VITALS: BP 109/50
[2022-06-16] MEDS: DOCUSATE SODIUM LIQ 100 MG/10 ML UDC NG SCH (08:27)
[2022-06-16] MEDS: VIT B CMPLX 3/FA/VIT C/BIOTIN 1 TAB TABLET GT SCH (08:29)
[2022-06-16] MEDS: PANTOPRAZOLE 40 MG/PACK PACK GT SCH (08:29)
[2022-06-16] MEDS: SEVELAMER CARBONATE 800 MG POWD.PACK GT SCH ×3 (08:29→17:49)
[2022-06-16] MEDS: ASPIRIN 81 MG TAB.CHEW GT SCH (08:29)
[2022-06-16] MEDS: CARVEDILOL 3.125 MG TABLET GT SCH ×2 (08:30→21:54)
[2022-06-16] MEDS: LEVOTHYROXINE SODIUM 88 MCG TABLET GT SCH (08:33)
[2022-06-16] MEDS: HEPARIN SODIUM, PORCINE 5000 UNITS/1 ML VIAL SQ SCH (08:36)
[2022-06-16] MEDS: THERAHONEY GEL 1.5 OZ TUBE TP SCH (08:36)
[2022-06-16] MEDS: MUPIROCIN OINT 2% 22 GM TUBE NS SCH ×2 (08:36→21:54)
[2022-06-16] MEDS: ACETAMINOPHEN 325 MG TABLET PO PRN (08:36)
[2022-06-16 12:00] VITALS: BP 110/51
--- NOTE | 2022-06-16 13:23 | NUR ---
RN NOTE SEEN PATIENT TRYING TO PULLOUT HD ACCESS AND TRACHEOSTOMY. INFORMED SEWAGE SCREEN OPERATOR ELISEO, WITH ORDER FOR SOFT WRIST RESTRAINTS CARRIED OUT.
[2022-06-16 16:15] VITALS: BP 112/50
[2022-06-16] MEDS: NEPRO 1,000 ML BOTTLE GT PRN (18:08)
--- NOTE | 2022-06-16 18:45 | NUR ---
RN NOTE PATIENT PULLED OUT FEMORAL CATHETER AND RIGHT FOREARM MIDLINE. CERTIFIED PROSTHETIST/ORTHOTIST ELISEO INFORMED. PATIENT IS FOR MIDLINE INSERTION ORDERED.
--- NOTE | 2022-06-16 18:46 | NUR ---
RN CLOSING NOTE PATIENT IS IN BED, AWAKE, ALERT ORIENTED X 1. SINUS RHYTHM ON POURER OFF. WITH LEFT CHEST WALL PERMACATH INTACT. WITH G-TUBE INTACT AND COVERED WITH DRY DRESSING. BREATHING UNLABORED AND NOT IN DISTRESS. PATIENT REMAINED STABLE THROUGHOUT SHIFT. BED IS LOCKED IN LOWEST POSITION, 3 SIDE RAILS UP, CALL LIGHT WITHIN REACH. WILL ENDORSE TO FOOD SCIENCE PROFESSOR NURSE.
--- NOTE | 2022-06-16 19:10 | NUR ---
RN OPENING NOTE RECEIVED PATIENT IN BED, OBTUNDED. PATIENT IS ON TRACH TO VENT WITH PRESCRIBED SETTINGS, TOLERATING WELL WITH NO RESP DISTRESS NOTED AT THIS TIME. TRACH P#8, AC:18, TV 400, FIO2 30, PEEP, 5 O2 SATING AT 100%. LEFT CHEST WALL PERMA-CATH NOTED, L UA MIDLINE# 18 INTACT. GASTRIC TUBE FEEDING RUNNING NEPRO AT 45 CC/HR. SAFETY MEASURES IMPLEMENTED, BED IN LOWEST POSITION, SIDE RAILS UP, CALL LIGHT WITHIN REACH, BED ALARM ON. WILL CONTINUE PLAN OF CARE AND ANTICIPATE NEEDS.
[2022-06-16 20:00] VITALS: BP 149/57
[2022-06-16] MEDS: OLANZAPINE 2.5 MG TABLET GT SCH (21:51)
[2022-06-16] MEDS: INSULIN GLARGINE, 100 UNIT/ML CARTRIDGE SQ SCH (22:05)
[2022-06-17] VITALS: BP 144/69
[2022-06-17] MEDS: BLOOD SUGAR DIAGNOSTIC 1 EACH STRIP IN SCH ×5 (00:21→23:24)
[2022-06-17] MEDS: INSULIN REGULAR, HUMAN 100 UNIT/ML 3 ML VIAL SQ PRN ×5 (00:27→23:24)
[2022-06-17 04:00] VITALS: BP 142/58
--- NOTE | 2022-06-17 06:49 | NUR ---
RN NOTES PATIENT ASLEEP. STILL ON VENTILATOR WITH PRESCRIBED SETTINGS. GT PATENT CONNECTED TO CONTINUOS GT FEEDING. PERMACATH ON R CHEST WALL PATENT DRESSING INTACT, R UA MIDLINE PATENT FLUSHES WELL. ALL DUE MEDS GIVEN ORDERED. PATIENT HAS AN EPISODE OF FEVER. COOLING MEASURES RENDERED. ALL SAFETY MEASURES IN PLACE AT ALL TIMES. HOB ELEVATED. CALL LIGHT WITHIN REACH. WILL ENDORSED TO MORNING SHIFT FOR SALVATORE
[2022-06-17 08:00] VITALS: BP 121/54
[2022-06-17] MEDS: ASPIRIN 81 MG TAB.CHEW GT SCH (09:51)
[2022-06-17] MEDS: DOCUSATE SODIUM LIQ 100 MG/10 ML UDC NG SCH (09:51)
[2022-06-17] MEDS: PANTOPRAZOLE 40 MG/PACK PACK GT SCH (09:51)
[2022-06-17] MEDS: VIT B CMPLX 3/FA/VIT C/BIOTIN 1 TAB TABLET GT SCH (09:51)
[2022-06-17] MEDS: SEVELAMER CARBONATE 800 MG POWD.PACK GT SCH ×3 (09:56→18:24)
[2022-06-17] MEDS: LEVOTHYROXINE SODIUM 88 MCG TABLET GT SCH (09:57)
[2022-06-17] MEDS: MUPIROCIN OINT 2% 22 GM TUBE NS SCH ×2 (10:09→22:07)
[2022-06-17] MEDS: CARVEDILOL 3.125 MG TABLET GT SCH ×2 (10:10→21:00)
[2022-06-17] MEDS: THERAHONEY GEL 1.5 OZ TUBE TP SCH (10:10)
[2022-06-17 12:00] VITALS: BP 112/44
[2022-06-17 12:14] LABS: BASOPHILS # (AUTO) 0.4 K/uL (0.0-0.2); BASOPHILS % (AUTO) 2.1 % (0.0-2.0); EOSINOPHILS % (AUTO) 0.8 % (0.0-6.0); HEMATOCRIT 27 % (33-45); HEMOGLOBIN 8.3 g/dL (11.5-14.8); LYMPHOCYTES # (AUTO) 1.9 K/uL (0.8-4.8); LYMPHOCYTES % (AUTO) 9.4 % (20.0-44.0); MEAN CORPUSCULAR HGB CONC 31 g/dl (31.0-36.0); MEAN CORPUSCULAR VOLUME 99 fL (82-100); MONOCYTES # (AUTO) 1.3 K/uL (0.1-1.30); MONOCYTES % (AUTO) 6.3 % (2.0-12.0); NEUTROPHILS # (AUTO) 16.5 K/uL (1.8-8.9); NEUTROPHILS % (AUTO) 81.4 % (43.0-81.0); PLATELET COUNT (AUTO) 548 K/uL (150-450); RED BLOOD CELL COUNT(AUTO) 2.69 MIL/uL (4.0-5.2); WHITE BLOOD COUNT (AUTO) 20.3 K/uL (4.3-11.0)
[2022-06-17 12:30] LABS: ALANINE AMINOTRANSFERASE 8 U/L (12-78); ALBUMIN 1.8 g/dL (3.4-5.0); ALKALINE PHOSPHATASE 225 U/L (46-116); ASPARTATE AMINOTRANSFERASE 28 U/L (15-37); BILIRUBIN,TOTAL 0.4 mg/dL (0.2-1.0); CALCIUM, SERUM 9.6 mg/dL (8.5-10.1); CARBON DIOXIDE 22 mmol/L (21-32); CHLORIDE 90 mmol/L (98-107); CREATININE 4.5 mg/dL (0.6-1.3); GLUCOSE 181 mg/dL (74-106); MAGNESIUM 2.7 mg/dL (1.8-2.4); PHOSPHORUS 4.9 mg/dL (2.5-4.9); POTASSIUM 5.1 mmol/L (3.5-5.1); SODIUM SERUM 129 mmol/L (136-145); TOTAL PROTEIN, SERUM 7.8 g/dL (6.4-8.2)
[2022-06-17 12:33] LABS: UREA NITROGEN, BLOOD 80 mg/dL (7-18)
[2022-06-17 20:00] VITALS: BP 103/41
[2022-06-17] MEDS ORDERED: DAPTOMYCIN 500 MG in IV NS 0.9% 50 ML IV ONE (21:00)
[2022-06-17] MEDS ORDERED: DAPTOMYCIN 500 MG in IV NS 0.9% 50 ML IV SCH (21:00)
--- NOTE | 2022-06-17 21:38 | NUR ---
RN NOTE DID NOT ADMINISTERED DAPTOMYCIN 500MG D/T MEDICATION NOT AVAILABLE IN NIGHT LOCKER PER RN SLUDGE FILTRATION OPERATOR, YASMINE. DR. OLMEDO INFORMED. PHARMACY TO FOLLOW UP IN AM.
[2022-06-17] MEDS: OLANZAPINE 2.5 MG TABLET GT SCH (22:05)
[2022-06-17] MEDS: INSULIN GLARGINE, 100 UNIT/ML CARTRIDGE SQ SCH (23:23)
[2022-06-18] VITALS: BP 128/54
[2022-06-18 04:00] VITALS: BP 121/55
[2022-06-18] MEDS: LEVOTHYROXINE SODIUM 88 MCG TABLET GT SCH (06:02)
[2022-06-18] MEDS: BLOOD SUGAR DIAGNOSTIC 1 EACH STRIP IN SCH ×4 (06:03→23:36)
[2022-06-18] MEDS: INSULIN REGULAR, HUMAN 100 UNIT/ML 3 ML VIAL SQ PRN ×4 (06:04→23:23)
[2022-06-18 06:49] LABS: BASOPHILS # (AUTO) 0.1 K/uL (0.0-0.2); BASOPHILS % (AUTO) 0.6 % (0.0-2.0); EOSINOPHILS % (AUTO) 0.3 % (0.0-6.0); HEMATOCRIT 26 % (33-45); HEMOGLOBIN 8.5 g/dL (11.5-14.8); LYMPHOCYTES % (AUTO) 10.3 % (20.0-44.0); MEAN CORPUSCULAR HGB CONC 33 g/dl (31.0-36.0); MEAN CORPUSCULAR VOLUME 97 fL (82-100); MONOCYTES # (AUTO) 1.5 K/uL (0.1-1.30); MONOCYTES % (AUTO) 7.7 % (2.0-12.0); NEUTROPHILS # (AUTO) 15.9 K/uL (1.8-8.9); NEUTROPHILS % (AUTO) 81.1 % (43.0-81.0); PLATELET COUNT (AUTO) 561 K/uL (150-450); WHITE BLOOD COUNT (AUTO) 19.6 K/uL (4.3-11.0)
--- NOTE | 2022-06-18 06:53 | NUR ---
RN CLOSING NOTE PATIENT IS NONVERBAL, SOMETIMES NODS. ON MECHANICAL VENT. NO CHANGES IN SETTINGS. NO RESPIRATORY DISTRES. NO S/S PAIN NOTED. TMAX THIS SHIFT 100.2F. SINUS RHYTHM WITH 1ST DEGREE AVB ON THE MONITOR. ANURIC. NO BM. GTUBE RUNNING NEPRO@45 WITH NO RESIDUAL. LCW PERMACATH DRESSING CHANGED. WOUND CARE DONE ORDERED. BLOOD SUGAR MONITORED. BLOOD CULTURES PENDING. PENDING HD TODAY.
[2022-06-18 06:58] LABS: CALCIUM, SERUM 9.8 mg/dL (8.5-10.1); CARBON DIOXIDE 24 mmol/L (21-32); CHLORIDE 91 mmol/L (98-107); CREATININE 5.6 mg/dL (0.6-1.3); GLUCOSE 226 mg/dL (74-106); MAGNESIUM 2.8 mg/dL (1.8-2.4); PHOSPHORUS 5.1 mg/dL (2.5-4.9); POTASSIUM 5.4 mmol/L (3.5-5.1); SODIUM SERUM 129 mmol/L (136-145)
[2022-06-18 07:04] LABS: UREA NITROGEN, BLOOD 110 mg/dL (7-18)
--- NOTE | 2022-06-18 07:30 | NUR ---
RN OPENING NOTE RECEIVED PATIENT IN BED, A/0X1, OBTUNDED. PATIENT IS ON TRACH TO VENT WITH PRESCRIBED SETTINGS, TOLERATING WELL WITH NO RESP DISTRESS NOTED AT THIS TIME. TRACH P#8, O2 SAT IS AT 100%. LEFT CHEST WALL PERMA-CATH NOTED, L UA MIDLINE# 18 INTACT. GASTRIC TUBE FEEDING INFUSING NEPRO AT 45 CC/HR. SAFETY MEASURES IN PLACE, BED IN LOWEST POSITION, SIDE RAILS UP, CALL LIGHT WITHIN REACH, BED ALARM ON. WILL CONTINUE PLAN OF CARE AND ANTICIPATE NEEDS.
[2022-06-18 08:00] VITALS: BP 122/55
[2022-06-18] MEDS: ASPIRIN 81 MG TAB.CHEW GT SCH (08:34)
[2022-06-18] MEDS: VIT B CMPLX 3/FA/VIT C/BIOTIN 1 TAB TABLET GT SCH (08:34)
[2022-06-18] MEDS: SEVELAMER CARBONATE 800 MG POWD.PACK GT SCH ×3 (08:34→17:04)
[2022-06-18] MEDS: CARVEDILOL 3.125 MG TABLET GT SCH ×2 (08:35→21:16)
[2022-06-18] MEDS: PANTOPRAZOLE 40 MG/PACK PACK GT SCH (08:35)
[2022-06-18] MEDS: DOCUSATE SODIUM LIQ 100 MG/10 ML UDC NG SCH (08:35)
[2022-06-18] MEDS: MUPIROCIN OINT 2% 22 GM TUBE NS SCH ×2 (08:36→21:17)
[2022-06-18] MEDS: LINEZOLID RTU BAG 600 MG in PREMIX 1 EA IV SCH ×2 (08:36→21:16)
[2022-06-18] MEDS: THERAHONEY GEL 1.5 OZ TUBE TP SCH (08:37)
[2022-06-18 12:00] VITALS: BP 112/50
[2022-06-18 16:00] VITALS: BP 114/46
[2022-06-18] MEDS: NEPRO 1,000 ML BOTTLE GT PRN (17:05)
--- NOTE | 2022-06-18 18:31 | NUR ---
Ongoing Hemodialysis at bedside. Pt tolerating procedure well at this time.
--- NOTE | 2022-06-18 18:33 | NUR ---
RN CLOSING NOTE PATIENT A/OX1. PT IS NONVERBAL. ON MECHANICAL VENT. NO CHANGES IN SETTINGS. NO RESPIRATORY DISTRESS. O2 SAT IS AT 99%. NO S/S PAIN. SINUS RHYTHM WITH 1ST DEGREE AVB ON THE MONITOR. ANURIC. GTUBE INFUSING NEPRO@45 WITH NO RESIDUAL. HD ONGOING. PAULA MIDLINE PATENT. SAFETY MEASURES IN PLACE. WILL ENDORSE TO NEXT NURSE ON DUTY FOR CONTINUITY OF CARE.
--- NOTE | 2022-06-18 19:42 | NUR ---
RN OPENING NOTE RECEIVED PATIENT IN BED, OBTUNDED. PATIENT IS ON TRACH TO VENT WITH PRESCRIBED SETTINGS, TOLERATING WELL, WITH NO RESPIRATORY DISTRESS NOTED AT THIS TIME. TRACH P#8, AC:18, TV 400, FIO2 30, PEEP, 5 O2 SATING AT 100%. LEFT CHEST WALL PERMA-CATH NOTED, L UA MIDLINE# 18 INTACT. GASTRIC TUBE FEEDING RUNNING NEPRO AT 45 CC/HR. ON TELEMONITORING, SAFETY MEASURES IMPLEMENTED, BED IN LOWEST POSITION, SIDE RAILS UP, CALL LIGHT WITHIN REACH, BED ALARM ON. ONGOING HEMODIALYSIS, HD NURSE AT BEDSIDE, WILL CONTINUE TO MONITOR THROUGHOUT THE SHIFT.
[2022-06-18 20:00] VITALS: BP 129/55
--- NOTE | 2022-06-18 20:36 | NUR ---
RN NOTE HD DONE AT THIS TIME, PT ABLE TO TOLERATE WELL, 2L REMOVED, V/S TAKEN AND RECORDED WNL. WILL CONT TO MONITOR.
[2022-06-18] MEDS: OLANZAPINE 2.5 MG TABLET GT SCH (21:16)
[2022-06-18] MEDS: INSULIN GLARGINE, 100 UNIT/ML CARTRIDGE SQ SCH (23:22)
--- NOTE | 2022-06-18 23:37 | NUR ---
RN NOTE BS CHECKED AT 235 MG/DL, 6 UNITS INSULIN GIVEN PER SLIDING SCALE, WILL CONT TO MONITOR.
[2022-06-19] VITALS: BP 111/48
[2022-06-19 04:00] VITALS: BP 124/47
[2022-06-19] MEDS: INSULIN REGULAR, HUMAN 100 UNIT/ML 3 ML VIAL SQ PRN ×4 (05:40→23:13)
[2022-06-19] MEDS: BLOOD SUGAR DIAGNOSTIC 1 EACH STRIP IN SCH ×4 (05:45→23:06)
--- NOTE | 2022-06-19 05:55 | NUR ---
RN NOTE BS CHECKED AT 165 MG/DL, 3 UNITS INSULIN GIVEN PER SLIDING SCALE.
[2022-06-19] MEDS: LEVOTHYROXINE SODIUM 88 MCG TABLET GT SCH (06:05)
--- NOTE | 2022-06-19 06:34 | NUR ---
BLOOD BANK ATTENDANT CLOSING NOTE PATIENT REMAINS IN BED, A/O X1 NONVERBAL. PATIENT ON TRACH TO VENT WITH PRESCRIBED SETTINGS, TOLERATING WELL, WITH NO RESPIRATORY DISTRESS NOTED AT THIS TIME. TRACH P#8, AC:18, TV 400, FIO2 30, PEEP, 5 O2 SATING AT 97%. LEFT CHEST WALL PERMA-CATH NOTED, L UA MIDLINE# 18 INTACT. GASTRIC TUBE FEEDING RUNNING NEPRO AT 45 CC/HR. ON TELEMONITORING CURRENTLY READING SR AT 89BPM, SAFETY MEASURES IMPLEMENTED, ALL DUE MEDS GIVEN, KEPT DRY AND CLEAN, BED IN LOWEST POSITION, SIDE RAILS UP, CALL LIGHT WITHIN REACH, BED ALARM ON. WILL ENDORSE TO AM SHIFT NURSE.
[2022-06-19 06:37] LABS: BASOPHILS # (AUTO) 0.1 K/uL (0.0-0.2); BASOPHILS % (AUTO) 0.5 % (0.0-2.0); EOSINOPHILS % (AUTO) 1.3 % (0.0-6.0); HEMATOCRIT 25 % (33-45); HEMOGLOBIN 7.7 g/dL (11.5-14.8); LYMPHOCYTES # (AUTO) 1.4 K/uL (0.8-4.8); LYMPHOCYTES % (AUTO) 8.5 % (20.0-44.0); MEAN CORPUSCULAR HGB CONC 32 g/dl (31.0-36.0); MEAN CORPUSCULAR VOLUME 98 fL (82-100); MONOCYTES # (AUTO) 1.3 K/uL (0.1-1.30); MONOCYTES % (AUTO) 8.1 % (2.0-12.0); NEUTROPHILS # (AUTO) 13.3 K/uL (1.8-8.9); NEUTROPHILS % (AUTO) 81.6 % (43.0-81.0); PLATELET COUNT (AUTO) 551 K/uL (150-450); RED BLOOD CELL COUNT(AUTO) 2.51 MIL/uL (4.0-5.2); WHITE BLOOD COUNT (AUTO) 16.3 K/uL (4.3-11.0)
[2022-06-19 06:57] LABS: CALCIUM, SERUM 9.3 mg/dL (8.5-10.1); CARBON DIOXIDE 24 mmol/L (21-32); CHLORIDE 94 mmol/L (98-107); CREATININE 3.8 mg/dL (0.6-1.3); GLUCOSE 195 mg/dL (74-106); MAGNESIUM 2.4 mg/dL (1.8-2.4); POTASSIUM 4.7 mmol/L (3.5-5.1); SODIUM SERUM 131 mmol/L (136-145); UREA NITROGEN, BLOOD 66 mg/dL (7-18)
--- NOTE | 2022-06-19 07:30 | NUR ---
RN NOTES PT FOUND SEMI FOWLERS DISPLAYING NO S/S OF DISTRESS, FLACC = 0 AND BILATERAL RISE AND FALL OF THE CHEST OBSERVED. L UA ML IS PATIENT AND INTACT. RN WILL CONTINUE CARE PLAN AND ANTICIPATE NEEDS. SAFETY MEASURES IN PLACE, BED LOCKED AND IN LOWEST POSITION, SIDE RAILS UPX2, CALL LIGHT WITHIN REACH, BED ALARM ARMED.
[2022-06-19 08:00] VITALS: BP 121/50
[2022-06-19] MEDS: ASPIRIN 81 MG TAB.CHEW GT SCH (08:26)
[2022-06-19] MEDS: PANTOPRAZOLE 40 MG/PACK PACK GT SCH (08:26)
[2022-06-19] MEDS: SEVELAMER CARBONATE 800 MG POWD.PACK GT SCH ×3 (08:26→17:36)
[2022-06-19] MEDS: DOCUSATE SODIUM LIQ 100 MG/10 ML UDC NG SCH (08:27)
[2022-06-19] MEDS: VIT B CMPLX 3/FA/VIT C/BIOTIN 1 TAB TABLET GT SCH (08:27)
[2022-06-19] MEDS: CARVEDILOL 3.125 MG TABLET GT SCH ×2 (08:29→21:22)
[2022-06-19] MEDS: LINEZOLID RTU BAG 600 MG in PREMIX 1 EA IV SCH ×2 (08:31→21:21)
[2022-06-19] MEDS: THERAHONEY GEL 1.5 OZ TUBE TP SCH (08:31)
[2022-06-19] MEDS: MUPIROCIN OINT 2% 22 GM TUBE NS SCH (08:31)
[2022-06-19 12:00] VITALS: BP 103/48
[2022-06-19 16:00] VITALS: BP 107/43
[2022-06-19] MEDS: NEPRO 1,000 ML BOTTLE GT PRN (17:40)
--- NOTE | 2022-06-19 19:25 | NUR ---
RN NOTES PT FOUND SEMI FOWLERS DISPLAYING NO S/S OF DISTRESS, FLACC = 0 AND BILATERAL RISE AND FALL OF THE CHEST OBSERVED. L UA ML IS PATIENT AND INTACT. PEG INTACT, INSERTION SITE IS CLEAN AND DRY. SBAR AND REPORT GIVEN TO NURSE PRACTITIONER ADULT RN, ALL QUESTIONS ANSWERED. SHAMEKA CONSENT ENDORSED TO NURSE PRACTITIONER ADULT RN. SAFETY MEASURES IN PLACE, BED LOCKED AND IN LOWEST POSITION, SIDE RAILS UPX2, CALL LIGHT WITHIN REACH, BED ALARM ARMED.
[2022-06-19 20:00] VITALS: BP 141/53
--- NOTE | 2022-06-19 20:13 | NUR ---
RN NOTE TALKED TO NIRMAL TAY (SON) VIA PHONE AND OBTAINED CONSENT FOR SHAMEKA SCHEDULED FOR TOMORROW MORNING.
[2022-06-19] MEDS: OLANZAPINE 2.5 MG TABLET GT SCH (21:22)
--- NOTE | 2022-06-19 21:50 | NUR ---
CHEMIST FOOD OPENING NOTE RECEIVED PT IN BED, OPENS EYES AND MAKES EYE CONTACT, NON-VERBAL. PT ON P#8, AC 18, TV 400, FIO2 30, PEEP 8; PT IN NO RESP DISTRESS, NO SOB OR COUGH, NON-LABORED AND EQUAL BREATHING WITH CURRENT O2SAT OF 99%. PT ATTACHED TO EXTERNAL MONITOR, SR WITH CURRENT HR OF 87. GT DRESSING C/D/I WITH NEPRO RUNNING AT 45 ML/HR; NO RESIDUAL NOTED. PT NOTED TO BE NPO AT MIDNIGHT AND WILL D/C FEEDING ACCORDINGLY. PAULA MIDLINE INTACT AND PATENT, FLUSHES EASILY WITH NO RESISTANCE, HAS NS TKO AT 10 ML/HR. PT NOTED TO HAVE LCW PERMCATH, DRESSING IS C/D/I. BED IN LOWEST POSITION, CALL LIGHT WITHIN REACH, SIDE RAILS UP X3. WILL CONTINUE TO MONITOR THROUGHOUT THE NIGHT.
[2022-06-19] MEDS: INSULIN GLARGINE, 100 UNIT/ML CARTRIDGE SQ SCH (22:00)
--- NOTE | 2022-06-19 22:14 | NUR ---
RN NOTE RECEIVED CRITICAL FROM LAB. PT'S BLOOD CULTURE RESULTED IN GRAM POSITIVE RODS. NOTIFIED MS. MORELIA AMARAL; NO FURTHER ACTIONS REGARDING PER MUNIR.
--- NOTE | 2022-06-19 23:14 | NUR ---
RN NOTE LANTUS 15 UNITS SCHEDULED FOR 2200 HELD; PT WILL BE NPO AT MIDNIGHT FOR SHAMEKA SCHEDULED FOR TOMORROW MORNING.
[2022-06-20] VITALS: BP 115/56
--- NOTE | 2022-06-20 | NUR ---
RN NOTE MICHAEL JULIEN HELD FOR PT'S SHAMEKA SCHEDULED FOR 0900 TODAY.
[2022-06-20 04:00] VITALS: BP 127/60
[2022-06-20] MEDS: BLOOD SUGAR DIAGNOSTIC 1 EACH STRIP IN SCH ×4 (05:10→23:31)
--- NOTE | 2022-06-20 06:31 | NUR ---
LEATHER PRODUCTION ARTISAN CLOSING NOTE PT REMAINS IN BED, NON-VERBAL, MAKES EYE CONTACT WHEN HER NAME IS CALLED. PT ON PORTEX #8, AC 18, TV 400, FIO2 30, PEEP 8; PT TOLERATED VENT SETTINGS WELL WITH NO CHANGES; O2SAT RANGED FROM 99%-100% WITH NO S/S OF RESP DISTRESS, NO SOB OR COUGH, NON-LABORED AND EQUAL BREATHING. PT ATTACHED TO EXTERNAL MONITOR SR WITH 1ST DEGREE AV BLOCK, HR RANGED FROM 83-87. WOUND CARE PERFORMED TO SACRAL AREA. GT DRESSING C/D/I; NEPRO STOPPED AT MIDNIGHT FOR SHAMEKA. PAULA MIDLINE INTACT AND PATENT, FLUSHES EASILY WITH NO RESISTANCE. LCW PERMCATH INTACT AND PATENT. ALL DUE MEDS ADMINISTERED DURING THE NIGHT. BED IN LOWEST POSITION, CALL LIGHT WITHIN REACH, SIDE RAILS UP X3. WILL ENDORSE TO DAYSHIFT NURSE TO CONTINUE CARE.
--- NOTE | 2022-06-20 07:05 | NUR ---
BACTERIOLOGIST INDUSTRIAL OPENING NOTE PT REMAINS IN BED, NON-VERBAL, MAKES EYE CONTACT WHEN HER NAME IS CALLED. PT ON PORTEX #8, AC 18, TV 400, FIO2 30, PEEP 8; PT TOLERATED VENT SETTINGS WELL WITH NO CHANGES; O2SAT RANGED FROM 99%-100% WITH NO S/S OF RESP DISTRESS, NO SOB OR COUGH, NON-LABORED AND EQUAL BREATHING. PT ATTACHED TO EXTERNAL MONITOR SR WITH 1ST DEGREE AV BLOCK, HR RANGED FROM 83-87. GT DRESSING C/D/I; NEPRO STOPPED AT MIDNIGHT FOR SHAMEKA PROCEDURE AT 0930. BRISSA HOLD ALL MEDICATIONS UNTIL AFTER PROCEDURE. PAULA MIDLINE INTACT AND PATENT, FLUSHES EASILY WITH NO RESISTANCE. LCW PERMCATH INTACT AND PATENT. BED IN LOWEST POSITION, CALL LIGHT WITHIN REACH, SIDE RAILS UP X3. WILL CONTINUE PLAN OF CARE AND ANTICIPATE NEEDS.
[2022-06-20 07:27] LABS: BASOPHILS # (AUTO) 0.1 K/uL (0.0-0.2); BASOPHILS % (AUTO) 0.4 % (0.0-2.0); EOSINOPHILS % (AUTO) 1.8 % (0.0-6.0); HEMATOCRIT 24 % (33-45); HEMOGLOBIN 7.7 g/dL (11.5-14.8); LYMPHOCYTES # (AUTO) 1.7 K/uL (0.8-4.8); LYMPHOCYTES % (AUTO) 9.6 % (20.0-44.0); MEAN CORPUSCULAR HGB CONC 32 g/dl (31.0-36.0); MEAN CORPUSCULAR VOLUME 97 fL (82-100); MONOCYTES # (AUTO) 1.3 K/uL (0.1-1.30); MONOCYTES % (AUTO) 7.2 % (2.0-12.0); NEUTROPHILS # (AUTO) 14.8 K/uL (1.8-8.9); PLATELET COUNT (AUTO) 579 K/uL (150-450); WHITE BLOOD COUNT (AUTO) 18.2 K/uL (4.3-11.0)
--- NOTE | 2022-06-20 07:30 | NUR ---
patient was send back by ICU refused take patient since scheduled for 0930,wants pt transferred by 0900.nursing supervisor rose grading Georgina notified.
[2022-06-20 08:00] VITALS: BP 124/45
[2022-06-20 08:00] LABS: CALCIUM, SERUM 9.1 mg/dL (8.5-10.1); CARBON DIOXIDE 25 mmol/L (21-32); CHLORIDE 92 mmol/L (98-107); GLUCOSE 129 mg/dL (74-106); MAGNESIUM 2.5 mg/dL (1.8-2.4); PHOSPHORUS 4.8 mg/dL (2.5-4.9); SODIUM SERUM 129 mmol/L (136-145)
[2022-06-20 08:06] LABS: UREA NITROGEN, BLOOD 90 mg/dL (7-18)
--- NOTE | 2022-06-20 08:44 | NUR ---
DR. CORDERO CANCELLED SHAMEKA ,CONFIRMED BY SURGERY.
[2022-06-20] MEDS: ASPIRIN 81 MG TAB.CHEW GT SCH (08:57)
[2022-06-20] MEDS: DOCUSATE SODIUM LIQ 100 MG/10 ML UDC NG SCH (08:57)
[2022-06-20] MEDS: VIT B CMPLX 3/FA/VIT C/BIOTIN 1 TAB TABLET GT SCH (08:57)
[2022-06-20] MEDS: LEVOTHYROXINE SODIUM 88 MCG TABLET GT SCH (08:57)
[2022-06-20] MEDS: PANTOPRAZOLE 40 MG/PACK PACK GT SCH (08:57)
[2022-06-20] MEDS: SEVELAMER CARBONATE 800 MG POWD.PACK GT SCH ×3 (08:57→18:11)
[2022-06-20] MEDS: THERAHONEY GEL 1.5 OZ TUBE TP SCH (08:58)
[2022-06-20] MEDS: CARVEDILOL 3.125 MG TABLET GT SCH ×2 (08:58→21:47)
[2022-06-20] MEDS: LINEZOLID RTU BAG 600 MG in PREMIX 1 EA IV SCH ×2 (08:59→21:10)
[2022-06-20] MEDS: INSULIN REGULAR, HUMAN 100 UNIT/ML 3 ML VIAL SQ PRN ×2 (11:31→18:08)
[2022-06-20 12:00] VITALS: BP 109/38
--- NOTE | 2022-06-20 15:25 | NUR ---
dr. meier seen pt. wants pt. dialyze today and for procedure in am.dr. cedeño notified ,he will put order for hd,left message to HD agency.
[2022-06-20 16:00] VITALS: BP 124/45
--- NOTE | 2022-06-20 18:30 | NUR ---
BULK RECEIVER CLOSING NOTE PT REMAINS IN BED, NON-VERBAL, MAKES EYE CONTACT WHEN HER NAME IS CALLED. PT ON PORTEX #8, AC 18, TV 400, FIO2 30, PEEP 8; PT TOLERATED VENT SETTINGS WELL WITH NO CHANGES; O2SAT RANGED FROM 99%-100% WITH NO S/S OF RESP DISTRESS, NO SOB OR COUGH, NON-LABORED AND EQUAL BREATHING. PT ATTACHED TO EXTERNAL MONITOR SR WITH 1ST DEGREE AV BLOCK, HR RANGED FROM 83-87. GT DRESSING C/D/I; NEPRO RUNNING AT 45 MLS/HR, NO RESIDUAL. PAULA MIDLINE INTACT AND PATENT, FLUSHES EASILY WITH NO RESISTANCE. LCW PERMCATH INTACT AND PATENT. BED IN LOWEST POSITION, CALL LIGHT WITHIN REACH, SIDE RAILS UP X3. ALL DUE MEDICATIONS ADMINISTERED, KEPT CLEAN AND DRY THROUGHOUT SHIFT. WILL ENDORSE TO NIGHTSHIFT RN FOR CONTINUATION OF CARE.
--- NOTE | 2022-06-20 19:21 | NUR ---
HISTOPATHOLOGY TECHNICIAN OPENING NOTE RECEIVED PATIENT IN BED, RECEIVING DIALYSIS , NON-VERBAL, MAKES EYE CONTACT, PT ON PORTEX #8, AC 18, TV 400, FIO2 30, PEEP 8; PT TOLERATED VENT SETTINGS WELL WITH NO S/S OF DISTRESS, PT ATTACHED TO EXTERNAL MONITOR SR, HR 92. GT TUBE RUNNING NEPHRO @45ML/HR, WILL BE STOPPING AT MIDNIGHT FOR PROCEDURE. PATIENT WILL BE NPO @MIDNIGHT. PAULA MIDLINE INTACT AND PATENT, LCW PERMCATH INTACT AND PATENT. BED IN LOWEST POSITION, CALL LIGHT WITHIN REACH, SIDE RAILS UP X3. WILL CONTINUE PLAN OF CARE AND ANTICIPATE NEEDS.
[2022-06-20 20:00] VITALS: BP 127/84
--- NOTE | 2022-06-20 20:36 | NUR ---
PANTRY WORKER NOTE DIALYSIS ENDED AT 2035. 1900ML REMOVED. BP 105/75, HR 78
[2022-06-20] MEDS: OLANZAPINE 2.5 MG TABLET GT SCH ×2 (21:47→22:11)
[2022-06-20] MEDS: INSULIN GLARGINE, 100 UNIT/ML CARTRIDGE SQ SCH (21:49)
--- NOTE | 2022-06-20 23:30 | NUR ---
MS RN NOTE PER CHARGE DONT GIVE INSULIN FOR BS 207 SINCE PATIENT WILL BE NPO AT MIDNIGHT
[2022-06-21] VITALS: BP 146/55
[2022-06-21] MEDS ORDERED: IV D5/ 0.9% NACL 1,000 ML IV PRN
[2022-06-21 04:00] VITALS: BP 156/55
[2022-06-21] MEDS: BLOOD SUGAR DIAGNOSTIC 1 EACH STRIP IN SCH ×4 (06:06→23:00)
--- NOTE | 2022-06-21 06:44 | NUR ---
ELECTRICAL INSTRUMENTATION TECHNICIAN CLOSING NOTE PT REMAINS IN BED, NON-VERBAL, MAKES EYE CONTACT WHEN HER NAME IS CALLED. PT ON PORTEX #8, AC 18, TV 400, FIO2 30, PEEP 8; PT TOLERATED VENT SETTINGS WELL WITH NO CHANGES; O2SAT RANGED FROM 99%-100% WITH NO S/S OF RESP DISTRESS, NO SOB OR COUGH, NON-LABORED AND EQUAL BREATHING. PT ATTACHED TO EXTERNAL MONITOR SR, HR 89. GT TUBE INTACT AND PATENT. STOPPED NEPHRO AT MIDNIGHT DUE TO NPO STATUS. PAULA MIDLINE INTACT AND PATENT, FLUSHES EASILY WITH NO RESISTANCE, D5NS RUNNING @90ML/HR. LCW PERMCATH INTACT AND PATENT, PATIENT HAS PROCEDURE TO REMOVE PERM CATH @1400. BED IN LOWEST POSITION, CALL LIGHT WITHIN REACH, SIDE RAILS UP X3. ALL DUE MEDICATIONS ADMINISTERED, KEPT CLEAN AND DRY THROUGHOUT SHIFT. WILL ENDORSE TO MORNING RN FOR CONTINUATION OF CARE
--- NOTE | 2022-06-21 07:12 | NUR ---
PIPE FINISHING SUPERVISOR OPENING NOTE RECEIVED PATIENT IN BED, RECEIVING DIALYSIS , NON-VERBAL, MAKES EYE CONTACT, PT ON PORTEX #8, AC 18, TV 400, FIO2 30, PEEP 8; PT TOLERATED VENT SETTINGS WELL WITH NO S/S OF DISTRESS, PT ATTACHED TO EXTERNAL MONITOR. NPO AT MIDNIGHT DUE TO PROCEDURE. PATIENT WILL BE NPO @MIDNIGHT. PAULA MIDLINE INTACT AND PATENT,LCW PERMCATH INTACT AND PATENT. BED IN LOWEST POSITION, CALL LIGHT WITHIN REACH, SIDE RAILS UP X3.
[2022-06-21 08:00] VITALS: BP 156/63
[2022-06-21 08:57] LABS: BASOPHILS # (AUTO) 0.1 K/uL (0.0-0.2); BASOPHILS % (AUTO) 0.6 % (0.0-2.0); EOSINOPHILS % (AUTO) 2.6 % (0.0-6.0); HEMATOCRIT 24 % (33-45); HEMOGLOBIN 7.9 g/dL (11.5-14.8); LYMPHOCYTES # (AUTO) 1.2 K/uL (0.8-4.8); LYMPHOCYTES % (AUTO) 7.7 % (20.0-44.0); MEAN CORPUSCULAR HGB CONC 33 g/dl (31.0-36.0); MEAN CORPUSCULAR VOLUME 97 fL (82-100); MONOCYTES # (AUTO) 1.2 K/uL (0.1-1.30); MONOCYTES % (AUTO) 7.7 % (2.0-12.0); NEUTROPHILS # (AUTO) 12.3 K/uL (1.8-8.9); NEUTROPHILS % (AUTO) 81.4 % (43.0-81.0); PLATELET COUNT (AUTO) 670 K/uL (150-450); RED BLOOD CELL COUNT(AUTO) 2.52 MIL/uL (4.0-5.2); WHITE BLOOD COUNT (AUTO) 15.1 K/uL (4.3-11.0)
[2022-06-21 09:02] LABS: CALCIUM, SERUM 9.5 mg/dL (8.5-10.1); CARBON DIOXIDE 27 mmol/L (21-32); CHLORIDE 93 mmol/L (98-107); CREATININE 3.8 mg/dL (0.6-1.3); GLUCOSE 153 mg/dL (74-106); POTASSIUM 4.7 mmol/L (3.5-5.1); SODIUM SERUM 130 mmol/L (136-145); UREA NITROGEN, BLOOD 58 mg/dL (7-18)
[2022-06-21 09:08] LABS: ALANINE AMINOTRANSFERASE 9 U/L (12-78); ALBUMIN 1.8 g/dL (3.4-5.0); ALKALINE PHOSPHATASE 208 U/L (46-116); ASPARTATE AMINOTRANSFERASE 22 U/L (15-37); BILIRUBIN,TOTAL 0.5 mg/dL (0.2-1.0); TOTAL PROTEIN, SERUM 7.6 g/dL (6.4-8.2)
[2022-06-21] MEDS: LEVOTHYROXINE SODIUM 88 MCG TABLET GT SCH (09:25)
[2022-06-21] MEDS: SEVELAMER CARBONATE 800 MG POWD.PACK GT SCH ×3 (09:25→18:14)
[2022-06-21] MEDS: ASPIRIN 81 MG TAB.CHEW GT SCH (09:26)
[2022-06-21] MEDS: VIT B CMPLX 3/FA/VIT C/BIOTIN 1 TAB TABLET GT SCH (09:26)
[2022-06-21] MEDS: DOCUSATE SODIUM LIQ 100 MG/10 ML UDC NG SCH (09:26)
[2022-06-21] MEDS: PANTOPRAZOLE 40 MG/PACK PACK GT SCH (09:26)
[2022-06-21] MEDS: CARVEDILOL 3.125 MG TABLET GT SCH ×2 (09:26→21:15)
[2022-06-21] MEDS: THERAHONEY GEL 1.5 OZ TUBE TP SCH (09:27)
[2022-06-21] MEDS: LINEZOLID RTU BAG 600 MG in PREMIX 1 EA IV SCH ×2 (09:28→21:14)
[2022-06-21 12:00] VITALS: BP 134/57
[2022-06-21] MEDS: INSULIN REGULAR, HUMAN 100 UNIT/ML 3 ML VIAL SQ PRN ×3 (12:51→23:07)
[2022-06-21] MEDS ORDERED: LIDOCAINE HCL/PF 1% 30 ML SDV IJ ONE (13:30)
[2022-06-21] MEDS: NEPRO 1,000 ML BOTTLE GT PRN (15:10)
[2022-06-21 16:00] VITALS: BP 114/52
--- NOTE | 2022-06-21 18:40 | NUR ---
ROLL OPERATOR CLOSING NOTE PT REMAINS IN BED, NON-VERBAL, MAKES EYE CONTACT WHEN HER NAME IS CALLED. PT ON PORTEX #8, AC 18, TV 400, FIO2 30, PEEP 8; PT TOLERATED VENT SETTINGS WELL WITH NO CHANGES; O2SAT RANGED FROM 99%-100% WITH NO S/S OF RESP DISTRESS, NO SOB OR COUGH, NON-LABORED AND EQUAL BREATHING. PT ATTACHED TO EXTERNAL MONITOR SR,. GT TUBE INTACT AND PATENT. LCW HD CATH REMOVED REMOVED BY DR MENA AT 1820, PRESSURE DRESSING APPLIED NO BLEEDING NOTED AT 1841, BED IN LOWEST POSITION, CALL LIGHT WITHIN REACH, SIDE RAILS UP X3. ALL DUE MEDICATIONS ADMINISTERED, KEPT CLEAN AND DRY THROUGHOUT SHIFT. WILL ENDORSE TO NIGHT RN FOR CONTINUATION OF CARE
[2022-06-21 20:00] VITALS: BP_SYST 113; BP_SYST 141; BP_DIAS 58; BP_DIAS 63
[2022-06-21] MEDS: OLANZAPINE 2.5 MG TABLET GT SCH (21:14)
--- NOTE | 2022-06-21 22:22 | NUR ---
TRAINING GENERALIST OPENING NOTE PT RECEIVED IN BED, NON-VERBAL, OPENS EYES AND MAKES EYE CONTACT WHEN HER NAME IS CALLED. SHE IS NOTED TO HAVE PORTEX #8, AC 18, TV 400, FIO2 30%, AND PEEP 8. PT SHOWS NO SIGNS OF RESP DISTRESS, NO SOB OR COUGH, NON-LABORED AND EQUAL BREATHING, APPEARS COMFORTABLE OVERALL. HAS CURRENT O2SAT OF 100%. ATTACHED TO EXTERNAL MONITOR, CURRENTLY SR WITH HR OF 89. PT NOTED TO BE ON BILATERAL SOFT WRIST RESTRAINTS AFTER PULLING OUT MIDLINE THAT OCCURRED EARLIER IN THE DAYSHIFT. NO SIGNS OF IMPAIRED SKIN INTEGRITY OR CIRCULATION; WILL PROVIDE RELEASE OF RESTRAINTS AND HYGIENE. NEW MIDLINE ESTABLISHED ON JASE. LCW PERMCATH NOTED TO BE REMOVED EARLIER IN THE DAY FOR LINE HOLIDAY. BED IN LOWEST POSITION, CALL LIGHT WITHIN REACH, SIDE RAILS UP X3. WILL CONTINUE TO MONITOR THROUGHOUT THE NIGHT.
[2022-06-21] MEDS: INSULIN GLARGINE, 100 UNIT/ML CARTRIDGE SQ SCH (23:06)
[2022-06-22] VITALS: BP 132/62
[2022-06-22 04:00] VITALS: BP 148/84
[2022-06-22] MEDS: BLOOD SUGAR DIAGNOSTIC 1 EACH STRIP IN SCH ×4 (05:06→23:42)
[2022-06-22] MEDS: INSULIN REGULAR, HUMAN 100 UNIT/ML 3 ML VIAL SQ PRN ×3 (05:08→23:45)
--- NOTE | 2022-06-22 06:24 | NUR ---
DRAIN CLEANER PLUMBER CLOSING NOTE PT REMAINS IN BED, NON-VERBAL, NO CHANGES TO NEURO STATUS. PT REMAINS ON SAME VENT SETTINGS; TOLERATED VENT SETTINGS WELL WITH NO S/S OF RESP DISTRESS, NO SOB OR COUGH, NON-LABORED AND EQUAL BREATHING; O2SAT WAS 100% THROUGHOUT THE WHOLE NIGHT. ATTACHED TO EXTERNAL MONITOR, SR-ST WITH HR RANGING FROM 89-106. PT REMAINS ON BILATERAL SOFT WRIST RESTRAINTS, SKIN AND CIRCULATION REMAINS INTACT; PROVIDED PT WITH RELEASE OF RESTRAINTS AND HYGIENE. WOUNDS ON SACRUM, KNEE, AND FOOT CLEANSED AND PERFORMED WOUND CARE. JASE MIDLINE INTACT AND PATENT; NO FLUIDS/MEDS RUNNING THROUGH IT. ALL DUE MEDS ADMINISTERED DURING THE NIGHT. TEMPORARY CATHETER IN PLACE LCW. GT DRESSING C/D/I WITH NEPRO RUNNING AT 45 ML/HR; NO RESIDUALS NOTED. BED IN LOWEST POSITION, CALL LIGHT WITHIN REACH, SIDE RAILS UP X3. WILL ENDORSE TO DAYSHIFT NURSE TO CONTINUE CARE.
[2022-06-22 06:31] LABS: BASOPHILS # (AUTO) 0.1 K/uL (0.0-0.2); BASOPHILS % (AUTO) 0.6 % (0.0-2.0); HEMATOCRIT 25 % (33-45); HEMOGLOBIN 7.8 g/dL (11.5-14.8); LYMPHOCYTES # (AUTO) 1.6 K/uL (0.8-4.8); LYMPHOCYTES % (AUTO) 10.4 % (20.0-44.0); MEAN CORPUSCULAR HGB CONC 32 g/dl (31.0-36.0); MEAN CORPUSCULAR VOLUME 97 fL (82-100); MONOCYTES # (AUTO) 1.1 K/uL (0.1-1.30); MONOCYTES % (AUTO) 7.2 % (2.0-12.0); NEUTROPHILS # (AUTO) 12.1 K/uL (1.8-8.9); NEUTROPHILS % (AUTO) 79.8 % (43.0-81.0); PLATELET COUNT (AUTO) 620 K/uL (150-450); RED BLOOD CELL COUNT(AUTO) 2.56 MIL/uL (4.0-5.2); WHITE BLOOD COUNT (AUTO) 15.1 K/uL (4.3-11.0)
[2022-06-22 07:12] LABS: ALANINE AMINOTRANSFERASE 8 U/L (12-78); ALBUMIN 1.6 g/dL (3.4-5.0); ALKALINE PHOSPHATASE 228 U/L (46-116); ASPARTATE AMINOTRANSFERASE 19 U/L (15-37); BILIRUBIN,TOTAL 0.4 mg/dL (0.2-1.0); CALCIUM, SERUM 9.1 mg/dL (8.5-10.1); CARBON DIOXIDE 23 mmol/L (21-32); CHLORIDE 92 mmol/L (98-107); CREATININE 4.7 mg/dL (0.6-1.3); GLUCOSE 157 mg/dL (74-106); POTASSIUM 4.6 mmol/L (3.5-5.1); SODIUM SERUM 126 mmol/L (136-145); TOTAL PROTEIN, SERUM 7.3 g/dL (6.4-8.2); UREA NITROGEN, BLOOD 70 mg/dL (7-18)
--- NOTE | 2022-06-22 07:35 | NUR ---
RN OPENING NOTES: RECEIVED PATIENT IN BED ASLEEP BUT OPENS HER EYES AND RESPONDS TO NURSE'S VOICE AND TOUCH AND OPENS HER EYES. ON MECHANICAL VENT WITH PORTEX #8, SETTING OF AC 18, TV 400, FIO2 30 AND PEEP 8. NOS S/S OF RESPIRATORY DISTRESS NOTED, BREATHING UNLABORED AND REGULAR. PATIENT ON OXYGEN SATURATION OF 100% AND IS ON ST WITH HR OF102. JASE MIDLINE INTACT, ON SALINE LOCK AND FLUSHING WELL, NO S/S OF INFILTRATION. PATIENT HAS GT FEEDING OF NEPHRO @ 45 ML/HR, GT SITE INTACT, DRESSING CLEAN AND DRY, NO RESIDUAL NOTED AND FLUSHING WELL. PATIENT HAS BILATERAL SOFT WRIST RESTRAINTS APPLIED, WILL REPOSITION AND WILL RELEASE ORDERED. SKIN IS WARM AND DRY TO TOUCH, NOTED WITH GOOD CIRCULATION. SAFETY MEASURE APPLIED. BED LOCKED AND IN LOWEST POSITION. CALL LIGHT WITHIN REACH. HOB ELEVATED. WILL CONTINUE TO MONITOR THROUGHOUT SHIFT.
[2022-06-22] MEDS: LEVOTHYROXINE SODIUM 88 MCG TABLET GT SCH (07:46)
[2022-06-22] MEDS: SEVELAMER CARBONATE 800 MG POWD.PACK GT SCH ×3 (07:46→17:13)
[2022-06-22 08:00] VITALS: BP 151/59
[2022-06-22] MEDS: DOCUSATE SODIUM LIQ 100 MG/10 ML UDC NG SCH (08:15)
[2022-06-22] MEDS: PANTOPRAZOLE 40 MG/PACK PACK GT SCH (08:15)
[2022-06-22] MEDS: CARVEDILOL 3.125 MG TABLET GT SCH ×2 (08:15→21:01)
[2022-06-22] MEDS: VIT B CMPLX 3/FA/VIT C/BIOTIN 1 TAB TABLET GT SCH (08:15)
[2022-06-22] MEDS: ASPIRIN 81 MG TAB.CHEW GT SCH (08:16)
[2022-06-22] MEDS: LINEZOLID RTU BAG 600 MG in PREMIX 1 EA IV SCH ×2 (08:17→21:01)
[2022-06-22] MEDS: THERAHONEY GEL 1.5 OZ TUBE TP SCH (08:57)
--- NOTE | 2022-06-22 09:35 | NUR ---
RECEIVED A MESSAGE FROM RADIOLOGY DEPT TO FURTHER INQUIRE TO WHEN IS THE PATIENT GOING TO DO HER CT ABD THAT WAS ORDERED BY DR. CHRISTOFER OLMEDO SINCE THE PATIENT'S HD PERMCATH WAS TAKEN OFF FOR LINE HOLIDAY. SPOKE WITH DR. OLMEDO AND STATED TO HOLD OFF ON CT SCAN FOR NOW UNTIL HER BLOOD CULTURE IS CLEAR AND MAY DO IT IN A COUPLE OF DAYS DEPENDING ON HER BLOOD CULTURE RESULTS.
--- NOTE | 2022-06-22 09:48 | NUR ---
SPOKE WITH ISHAN FROM RADIOLOGY DEPT AND INFORMED REGRADING CT SCAN TO BE PUT ON HOLD PER DR. OLMEDO
--- NOTE | 2022-06-22 10:41 | NUR ---
RECEIVED A CALL FROM THE LAB STATING THE PATIENT'S BLOOD CULTURE RESULT OF GRAM POSITIVE COCCI WITH CLUSTERS. NOTIFIED
[2022-06-22 12:00] VITALS: BP 125/56
[2022-06-22 16:00] VITALS: BP 166/63
--- NOTE | 2022-06-22 17:00 | NUR ---
CLARIFICATION SENT TO WASTE REDUCTION COORDINATOR. ORDERED TO STOP IV FLUIDS.
--- NOTE | 2022-06-22 18:25 | NUR ---
RN CLOSING NOTES; PATIENT IN BED, AWAKE, RESPONDS AND OPENS HER EYES TO NURSE'S VOICE AND TOUCH. NO RESPIRATORY DISTRESS NOTED, BREATHING REGULAR AND UNLABORED AND IS ON MECHANICAL VENT WITH SETTING OF AC 18, TIDAL VOLUME 400, FI02 30 AND PEEP 8 WITH OXYGEN SATURATION OF 97%ON SR WITH HR OF 98. JASE MIDLINE INTACT, SL, FLUSHING WELL, NO S/S INFILTRATION. ON CONTINUOUS GT FEEDING OF NEPHRO @ 45 ML/HR, DRESSING ON GT CLEAN, DRY AND INTACT. GT NOTED WITH NO RESIDUAL AND FLUSHING WELL. BILATERAL SOFT RESTRAINTS APPLIED PER MD'S ORDER AND WAS RELEASED AND REPOSITIONED ORDERED. SKIN WITH GOOD CIRCULATION NOTED. WOUND TREATMENTS DONE PER PROTOCOL. KEPT PATIENT CLEAN AND DRY AT ALL TIMES AND REPOSITIONED FOR COMFORT. HOB ELEVATED. BED LOCKED AND IN LOWEST POSITION, CALL LIGHT WITHIN REACH, WILL ENDORSE TO NEXT SHIFT NURSE FOR SALVATORE.
[2022-06-22] MEDS: NEPRO 1,000 ML BOTTLE GT PRN (18:52)
--- NOTE | 2022-06-22 19:10 | NUR ---
RN OPENING NOTE RECEIVED PATIENT IN BED, OBTUNDED. PATIENT IS ON TRACH TO VENT WITH PRESCRIBED SETTINGS, TOLERATING WELL WITH NO RESP DISTRESS NOTED AT THIS TIME. TRACH P#8, AC:18, TV 400, FIO2 30, PEEP, 5 O2 SATING AT 100%. L UA MIDLINE# 18 INTACT FLUSHES WELL GASTRIC TUBE FEEDING RUNNING NEPRO AT 45 CC/HR. SAFETY MEASURES IMPLEMENTED, BED IN LOWEST POSITION, SIDE RAILS UP, CALL LIGHT WITHIN REACH, BED ALARM ON. WILL CONTINUE PLAN OF CARE AND ANTICIPATE NEEDS.
[2022-06-22 20:00] VITALS: BP 140/68
[2022-06-22] MEDS: OLANZAPINE 2.5 MG TABLET GT SCH (21:01)
[2022-06-22] MEDS: ACETAMINOPHEN 325 MG TABLET PO PRN (21:05)
[2022-06-22] MEDS: INSULIN GLARGINE, 100 UNIT/ML CARTRIDGE SQ SCH (21:18)
[2022-06-23] VITALS: BP 153/85
[2022-06-23 04:00] VITALS: BP 142/64
[2022-06-23] MEDS: MORPHINE SULFATE INJ 2 MG/ML DISP.SYRIN IV PRN (04:31)
[2022-06-23] MEDS: BLOOD SUGAR DIAGNOSTIC 1 EACH STRIP IN SCH ×3 (05:25→18:40)
--- NOTE | 2022-06-23 06:53 | NUR ---
MACHINE STONE POLISHER CLOSING NOTE PT REMAINS IN BED, NON-VERBAL, NO CHANGES TO NEURO STATUS. PT REMAINS ON SAME VENT SETTINGS; TOLERATED VENT SETTINGS WELL WITH NO S/S OF RESP DISTRESS, NO SOB OR COUGH, NON-LABORED AND EQUAL BREATHING; O2SAT WAS 100% THROUGHOUT THE WHOLE NIGHT. ATTACHED TO EXTERNAL MONITOR, SR-ST WITH HR RANGING FROM [id number]. PT REMAINS ON BILATERAL SOFT WRIST RESTRAINTS, SKIN AND CIRCULATION REMAINS INTACT; PROVIDED PT WITH RELEASE OF RESTRAINTS AND HYGIENE. WOUNDS ON SACRUM, KNEE, AND FOOT CLEANSED AND PERFORMED WOUND CARE. JASE MIDLINE INTACT AND PATENT; NO FLUIDS/MEDS RUNNING THROUGH IT. ALL DUE MEDS ADMINISTERED DURING THE NIGHT.GT DRESSING C/D/I WITH NEPRO RUNNING AT 45 ML/HR; NO RESIDUALS NOTED. BED IN LOWEST POSITION, CALL LIGHT WITHIN REACH, SIDE RAILS UP X3. WILL ENDORSE TO DAYSHIFT NURSE TO CONTINUE CARE.
--- NOTE | 2022-06-23 07:30 | NUR ---
RN NOTES PT FOUND SEMI FOWLERS DISPLAYING NO S/S OF DISTRESS, FLACC = 0 AND BILATERAL RISE AND FALL OF THE CHEST OBSERVED. TRACH DRESSING IS CLEAN AND DRY. PEG DRESSING IS CLEAN AND DRY. NO RESIDUAL MEASURED. R UA ML IS PATIENT AND INTACT. RN WILL CONTINUE CARE PLAN AND ANTICIPATE NEEDS. SAFETY MEASURES IN PLACE, BED LOCKED AND IN LOWEST POSITION, SIDE RAILS UPX2, CALL LIGHT WITHIN REACH, BED ALARM ARMED.
[2022-06-23] MEDS: LEVOTHYROXINE SODIUM 88 MCG TABLET GT SCH (07:46)
[2022-06-23] MEDS: SEVELAMER CARBONATE 800 MG POWD.PACK GT SCH ×3 (07:46→18:40)
[2022-06-23 08:00] VITALS: BP 134/60
[2022-06-23 09:24] LABS: BASOPHILS # (AUTO) 0.1 K/uL (0.0-0.2); BASOPHILS % (AUTO) 0.4 % (0.0-2.0); HEMATOCRIT 24 % (33-45); HEMOGLOBIN 7.7 g/dL (11.5-14.8); LYMPHOCYTES # (AUTO) 1.3 K/uL (0.8-4.8); MEAN CORPUSCULAR HGB CONC 32 g/dl (31.0-36.0); MEAN CORPUSCULAR VOLUME 96 fL (82-100); MONOCYTES # (AUTO) 1.2 K/uL (0.1-1.30); NEUTROPHILS # (AUTO) 12.1 K/uL (1.8-8.9); NEUTROPHILS % (AUTO) 80.6 % (43.0-81.0); PLATELET COUNT (AUTO) 648 K/uL (150-450); RED BLOOD CELL COUNT(AUTO) 2.51 MIL/uL (4.0-5.2)
[2022-06-23 09:30] LABS: CALCIUM, SERUM 9.2 mg/dL (8.5-10.1); CARBON DIOXIDE 23 mmol/L (21-32); CHLORIDE 90 mmol/L (98-107); CREATININE 5.6 mg/dL (0.6-1.3); GLUCOSE 191 mg/dL (74-106); POTASSIUM 5.6 mmol/L (3.5-5.1); SODIUM SERUM 125 mmol/L (136-145)
[2022-06-23 09:34] LABS: UREA NITROGEN, BLOOD 86 mg/dL (7-18)
[2022-06-23] MEDS: VIT B CMPLX 3/FA/VIT C/BIOTIN 1 TAB TABLET GT SCH (09:58)
[2022-06-23] MEDS: PANTOPRAZOLE 40 MG/PACK PACK GT SCH (09:58)
[2022-06-23] MEDS: CARVEDILOL 3.125 MG TABLET GT SCH ×2 (09:58→21:27)
[2022-06-23] MEDS: LINEZOLID RTU BAG 600 MG in PREMIX 1 EA IV SCH ×2 (09:58→21:25)
[2022-06-23] MEDS: THERAHONEY GEL 1.5 OZ TUBE TP SCH (09:58)
[2022-06-23] MEDS: DOCUSATE SODIUM LIQ 100 MG/10 ML UDC NG SCH (09:58)
[2022-06-23] MEDS: ASPIRIN 81 MG TAB.CHEW GT SCH (09:58)
[2022-06-23 10:37] LABS: ALANINE AMINOTRANSFERASE 9 U/L (12-78); ASPARTATE AMINOTRANSFERASE 16 U/L (15-37)
[2022-06-23 11:03] LABS: ALBUMIN 1.6 g/dL (3.4-5.0); ALKALINE PHOSPHATASE 224 U/L (46-116); BILIRUBIN,TOTAL 0.3 mg/dL (0.2-1.0); TOTAL PROTEIN, SERUM 6.8 g/dL (6.4-8.2)
[2022-06-23 12:00] VITALS: BP 129/52
[2022-06-23] MEDS: INSULIN REGULAR, HUMAN 100 UNIT/ML 3 ML VIAL SQ PRN ×2 (13:22→18:40)
[2022-06-23 16:00] VITALS: BP 149/55
--- NOTE | 2022-06-23 19:10 | NUR ---
RN OPENING NOTE RECEIVED PATIENT IN BED, OBTUNDED. PATIENT IS ON TRACH TO VENT WITH PRESCRIBED SETTINGS, TOLERATING WELL WITH NO RESP DISTRESS NOTED AT THIS TIME. TRACH P#8, AC:18, TV 400, FIO2 30, PEEP, 5 O2 SATING AT 100%. R UA MIDLINE# 18 INTACT FLUSHES WELL GASTRIC TUBE FEEDING RUNNING NEPRO AT 45 CC/HR. SAFETY MEASURES IMPLEMENTED, BED IN LOWEST POSITION, SIDE RAILS UP, CALL LIGHT WITHIN REACH, BED ALARM ON. WILL CONTINUE PLAN OF CARE AND ANTICIPATE NEEDS.
[2022-06-23] MEDS: NEPRO 1,000 ML BOTTLE GT PRN (19:29)
--- NOTE | 2022-06-23 19:35 | NUR ---
RN NOTES PT FOUND SEMI FOWLERS DISPLAYING NO S/S OF DISTRESS, FLACC = 0 AND BILATERAL RISE AND FALL OF THE CHEST OBSERVED. TRACH DRESSING IS CLEAN AND DRY. PEG DRESSING IS CLEAN AND DRY. NO RESIDUAL MEASURED. R UA ML IS PATIENT AND INTACT. SBAR AND REPORT GIVEN TO HAT BRAIDER RN, ALL QUESTIONS ANSWERED. SAFETY MEASURES IN PLACE, BED LOCKED AND IN LOWEST POSITION, SIDE RAILS UPX2, CALL LIGHT WITHIN REACH, BED ALARM ARMED.
[2022-06-23 20:00] VITALS: BP 153/71
[2022-06-23] MEDS: OLANZAPINE 2.5 MG TABLET GT SCH (21:25)
[2022-06-23] MEDS: INSULIN GLARGINE, 100 UNIT/ML CARTRIDGE SQ SCH (22:54)
[2022-06-24] VITALS: BP 133/63
[2022-06-24] MEDS: BLOOD SUGAR DIAGNOSTIC 1 EACH STRIP IN SCH ×4 (00:32→18:41)
[2022-06-24 04:00] VITALS: BP 131/54
--- NOTE | 2022-06-24 05:13 | NUR ---
RT NOTE PT RECEIVED TRACH'D AND ON MECH VENT. ALARMS ARE SET AND AUDIBLE. PT SX'D W NO ADVERSE REACTIONS. NO RESP DISTRESS NOTED T/O SHIFT.
[2022-06-24 05:58] LABS: BASOPHILS # (AUTO) 0.1 K/uL (0.0-0.2); BASOPHILS % (AUTO) 0.7 % (0.0-2.0); EOSINOPHILS % (AUTO) 3.7 % (0.0-6.0); HEMATOCRIT 23 % (33-45); HEMOGLOBIN 7.5 g/dL (11.5-14.8); LYMPHOCYTES # (AUTO) 1.5 K/uL (0.8-4.8); LYMPHOCYTES % (AUTO) 10.1 % (20.0-44.0); MEAN CORPUSCULAR HGB CONC 33 g/dl (31.0-36.0); MEAN CORPUSCULAR VOLUME 95 fL (82-100); MONOCYTES # (AUTO) 1.1 K/uL (0.1-1.30); MONOCYTES % (AUTO) 7.3 % (2.0-12.0); NEUTROPHILS # (AUTO) 11.8 K/uL (1.8-8.9); NEUTROPHILS % (AUTO) 78.2 % (43.0-81.0); PLATELET COUNT (AUTO) 644 K/uL (150-450); WHITE BLOOD COUNT (AUTO) 15.1 K/uL (4.3-11.0)
[2022-06-24 06:45] LABS: ALANINE AMINOTRANSFERASE 6 U/L (12-78); ALBUMIN 1.6 g/dL (3.4-5.0); ALKALINE PHOSPHATASE 199 U/L (46-116); ASPARTATE AMINOTRANSFERASE 16 U/L (15-37); BILIRUBIN,TOTAL 0.4 mg/dL (0.2-1.0); CALCIUM, SERUM 9.3 mg/dL (8.5-10.1); CARBON DIOXIDE 24 mmol/L (21-32); CHLORIDE 89 mmol/L (98-107); CREATININE 6.3 mg/dL (0.6-1.3); GLUCOSE 108 mg/dL (74-106); POTASSIUM 5.7 mmol/L (3.5-5.1); SODIUM SERUM 125 mmol/L (136-145)
[2022-06-24 06:49] LABS: UREA NITROGEN, BLOOD 101 mg/dL (7-18)
--- NOTE | 2022-06-24 07:25 | NUR ---
RN/TELE OPENING NOTE PATIENT ASLEEP A&OX0. OBTUNDED. SR, PATIENT SATTING AT 100% ON VENT AC MODE RATE 18, TV 400, FIO2 30% PEEP 8. DIET NEPRO @ 45 MLS/HR 0 RESIDUAL. IV JASE MIDLINE PATENT, INTACT AND FLUSHED WITH NS. ALL SAFETY FALL PRECAUTIONS IN PLACE BED IN LOWEST POSITION, BED LOCK ON, BED ALARM ON, SIDE RAILS UP, CALL LIGHT WITHIN REACH. WILL CONTINUE TO MONITOR.
[2022-06-24 08:00] VITALS: BP 138/63
[2022-06-24] MEDS: PANTOPRAZOLE 40 MG/PACK PACK GT SCH (08:48)
[2022-06-24] MEDS: CARVEDILOL 3.125 MG TABLET GT SCH ×2 (08:48→21:00)
[2022-06-24] MEDS: SEVELAMER CARBONATE 800 MG POWD.PACK GT SCH ×3 (08:49→18:41)
[2022-06-24] MEDS: ASPIRIN 81 MG TAB.CHEW GT SCH (08:49)
[2022-06-24] MEDS: DOCUSATE SODIUM LIQ 100 MG/10 ML UDC NG SCH (08:49)
[2022-06-24] MEDS: LINEZOLID RTU BAG 600 MG in PREMIX 1 EA IV SCH ×2 (08:49→21:04)
[2022-06-24] MEDS: THERAHONEY GEL 1.5 OZ TUBE TP SCH (08:49)
[2022-06-24] MEDS: LEVOTHYROXINE SODIUM 88 MCG TABLET GT SCH (08:58)
[2022-06-24] MEDS: VIT B CMPLX 3/FA/VIT C/BIOTIN 1 TAB TABLET GT SCH (08:59)
[2022-06-24 12:00] VITALS: BP 123/53
[2022-06-24 16:00] VITALS: BP 142/60
[2022-06-24 20:00] VITALS: BP 140/60
[2022-06-24] MEDS: OLANZAPINE 2.5 MG TABLET GT SCH (21:01)
[2022-06-24] MEDS: INSULIN GLARGINE, 100 UNIT/ML CARTRIDGE SQ SCH (21:12)
[2022-06-25] VITALS (9 sets, daily range): BP systolic 14–167; BP diastolic 55–76
[2022-06-25] MEDS: BLOOD SUGAR DIAGNOSTIC 1 EACH STRIP IN SCH ×5 (07:28→23:11)
--- NOTE | 2022-06-25 07:30 | NUR ---
rn opening notes: RN/TELE OPENING NOTE PATIENT ASLEEP A&OX0. OBTUNDED. SR, PATIENT SATTING AT 100% ON VENT AC MODE RATE 18, TV 400, FIO2 30% PEEP 8. on tube feeding NEPRO @ 45 MLS/HR 0 RESIDUAL. IV JASE MIDLINE PATENT, INTACT AND FLUSHED WITH NS. ALL SAFETY FALL PRECAUTIONS IN PLACE BED IN LOWEST POSITION, BED LOCK ON, BED ALARM ON, SIDE RAILS UP, CALL LIGHT WITHIN REACH. WILL CONTINUE TO MONITOR.
--- NOTE | 2022-06-25 07:31 | NUR ---
RN CLOSING NOTE PATIENT STABLE REPORT GIVEN TO DAY NURSE ALL QUESTIONS ANSWERED.
[2022-06-25] MEDS: LEVOTHYROXINE SODIUM 88 MCG TABLET GT SCH (07:49)
[2022-06-25] MEDS: SEVELAMER CARBONATE 800 MG POWD.PACK GT SCH ×3 (07:50→17:30)
--- NOTE | 2022-06-25 08:00 | NUR ---
RN notes: received a call from the lab saying hemoglobin6.9 if redraw needed asked them to redraw for confirmation
[2022-06-25] MEDS: CARVEDILOL 3.125 MG TABLET GT SCH ×2 (08:19→21:23)
[2022-06-25] MEDS: DOCUSATE SODIUM LIQ 100 MG/10 ML UDC NG SCH (08:19)
[2022-06-25] MEDS: LINEZOLID RTU BAG 600 MG in PREMIX 1 EA IV SCH (08:19)
[2022-06-25] MEDS: VIT B CMPLX 3/FA/VIT C/BIOTIN 1 TAB TABLET GT SCH (08:19)
[2022-06-25] MEDS: PANTOPRAZOLE 40 MG/PACK PACK GT SCH (08:20)
[2022-06-25] MEDS: ASPIRIN 81 MG TAB.CHEW GT SCH (08:20)
[2022-06-25 08:24] LABS: BASOPHILS # (AUTO) 0.1 K/uL (0.0-0.2); BASOPHILS % (AUTO) 0.8 % (0.0-2.0); EOSINOPHILS % (AUTO) 4.5 % (0.0-6.0); HEMATOCRIT 21 % (33-45); LYMPHOCYTES # (AUTO) 1.6 K/uL (0.8-4.8); LYMPHOCYTES % (AUTO) 11.6 % (20.0-44.0); MEAN CORPUSCULAR HGB CONC 33 g/dl (31.0-36.0); MEAN CORPUSCULAR VOLUME 94 fL (82-100); MONOCYTES # (AUTO) 1.2 K/uL (0.1-1.30); MONOCYTES % (AUTO) 8.3 % (2.0-12.0); NEUTROPHILS # (AUTO) 10.5 K/uL (1.8-8.9); NEUTROPHILS % (AUTO) 74.8 % (43.0-81.0); PLATELET COUNT (AUTO) 563 K/uL (150-450); RED BLOOD CELL COUNT(AUTO) 2.17 MIL/uL (4.0-5.2)
[2022-06-25 08:28] LABS: HEMOGLOBIN 6.7 g/dL (11.5-14.8)
[2022-06-25 08:30] LABS: CALCIUM, SERUM 9.1 mg/dL (8.5-10.1); CARBON DIOXIDE 24 mmol/L (21-32); CHLORIDE 86 mmol/L (98-107); CREATININE 6.8 mg/dL (0.6-1.3); GLUCOSE 131 mg/dL (74-106); SODIUM SERUM 121 mmol/L (136-145)
[2022-06-25 08:35] LABS: UREA NITROGEN, BLOOD 110 mg/dL (7-18)
[2022-06-25 08:37] LABS: ALANINE AMINOTRANSFERASE 8 U/L (12-78); ALBUMIN 1.6 g/dL (3.4-5.0); ALKALINE PHOSPHATASE 181 U/L (46-116); ASPARTATE AMINOTRANSFERASE 18 U/L (15-37); BILIRUBIN,TOTAL 0.3 mg/dL (0.2-1.0); TOTAL PROTEIN, SERUM 6.8 g/dL (6.4-8.2)
--- NOTE | 2022-06-25 08:42 | NUR ---
JOHN notes: received a call from the lab hemoglobin 6.[address] Duarte with oir Addendum: 06/25/22 at 0843 by MCKAYLA GALLOWAY RN DR Duarte with order to give 1 unit of RBC
[2022-06-25] MEDS: THERAHONEY GEL 1.5 OZ TUBE TP SCH (08:44)
[2022-06-25] MEDS ORDERED: SODIUM POLYSTYRENE SULF. PWD 15 GM UDC PO SCH (10:00)
[2022-06-25] MEDS ORDERED: MISCELLANEOUS MED 1 EA EA XX ONE (11:30)
[2022-06-25] MEDS: DAPTOMYCIN 500 MG in IV NS 0.9% 50 ML IV SCH (12:10)
[2022-06-25] MEDS: CEFTAROLINE FOSAMIL ACETATE IV SCH ×2 (13:50→21:25)
[2022-06-25] MEDS: D5W IV SCH ×2 (13:50→21:25)
[2022-06-25] MEDS: INSULIN REGULAR, HUMAN 100 UNIT/ML 3 ML VIAL SQ PRN ×2 (17:59→23:11)
--- NOTE | 2022-06-25 19:25 | NUR ---
RECREATION ATTENDANT CLOSING NOTE: PATIENT REMAINS IN BED, EYES ARE OPEN BUT NON-VERBAL. AOX0. ON TELE MONITOR THAT READS NSR WITH HR OF 96 BPM. WITH TRACHEOSTOMY SIZE PORTEX 8, 99% ON VENT AC MODE RATE 18, TV 400, FIO2 30% PEEP 8. ON TUBE FEEDING VIA G-TUBE WITH NEPRO RUNNING @ 45 MLS/HR 0 RESIDUAL. IV ON JASE MIDLINE, PATENT, INTACT AND FLUSHED WITH NS. DRESSING C/D/I. SAFETY, FALL, ASPIRATION AND PRESSURE ULCER PRECAUTIONS MAINTAINED: BED IN LOWEST AND LOCKED POSITION, BED ALARM ON, HOB ELEVATED, TURNED AND REPOSITIONED Q2H. WILL ENDORSE CONTINUITY OF CARE TO RELAYS DRAFTSPERSON RN.
--- NOTE | 2022-06-25 19:30 | NUR ---
RN NOTES: SEEN BY DR JENNY VERA INSERTED LEFT FEMORAL HD CATH , PROCEDURE WELL TOLERATED.
--- NOTE | 2022-06-25 19:48 | NUR ---
RN OPENING NOTES: RECEIVED PATIENT IN BED, OBTUNDED. OPEN BOTH EYES. ON TRACH TO VENT SETTINGS. PORTEX 8, AC 18, TV 400, FIO2 30% PEEP 8. IV ACCESS ON JASE MIDLINE INTACT AND PATENT. NEWLY INSERTED TEMPORARY RT FEMORAL HD CATHETER, COVERED WITH DRY DRESSING. ON GTUBE FEEDING AND PT TOLERATED WELL. RUNNING NEPRO 45CC/HR. ALL SAFETY MEASURES IN PLACE. BED IN LOWEST AND LOCKED POSITION,HOB ELEVATED, SIDE RAILS UP X3, PLACE CALL LIGHT WITH IN REACH. WILL CONTINUE TO MONITOR.
[2022-06-25] MEDS: LINEZOLID 600 MG TABLET PO SCH (21:22)
[2022-06-25] MEDS: OLANZAPINE 2.5 MG TABLET GT SCH (21:22)
[2022-06-25] MEDS: ACETAMINOPHEN 325 MG TABLET PO PRN (21:24)
--- NOTE | 2022-06-25 21:28 | NUR ---
RN NOTES: PT NOTED WITH FACIAL GRIMACING AFTER REPOSITIONED HER. TYLENOL 325 MG 2 TABS GIVEN PER PRN ORDERED VIA [facility]. WILL CONTINUE TO MONITOR
[2022-06-25 21:51] LABS: HEMOGLOBIN 8.2 g/dL (11.5-14.8)
[2022-06-25] MEDS: INSULIN GLARGINE, 100 UNIT/ML CARTRIDGE SQ SCH (22:56)
--- NOTE | 2022-06-25 23:12 | NUR ---
RN NOTES: PT'S BLOOD SUGAR 109. LANTUS 15 UNITS GIVEN BUT NO COVERAGE FOR REGULAR INSULIN. NO S/S OF HYPER/HYPOGLYCEMIA. WILL CONTINUE TO MONITOR
--- NOTE | 2022-06-25 23:45 | NUR ---
RN NOTES: DIALYSIS DONE. PT TOLERATED WELL. 1 L OUT. V/S STABLE. WILL CONTINUE TO MONITOR.
[2022-06-26] VITALS: BP 145/63
[2022-06-26 04:00] VITALS: BP 148/78
[2022-06-26] MEDS: BLOOD SUGAR DIAGNOSTIC 1 EACH STRIP IN SCH ×4 (05:35→23:07)
[2022-06-26] MEDS: INSULIN REGULAR, HUMAN 100 UNIT/ML 3 ML VIAL SQ PRN ×2 (05:35→23:07)
[2022-06-26] MEDS: LEVOTHYROXINE SODIUM 88 MCG TABLET GT SCH (06:11)
--- NOTE | 2022-06-26 06:45 | NUR ---
RN CLOSING NOTES: PATIENT IN BED, OBTUNDED. OPEN BOTH EYES. ON TRACH TO VENT SETTINGS. PORTEX 8, AC 18, TV 400, FIO2 30% PEEP 8. O2 SAT 100%. IV ACCESS ON JASE MIDLINE INTACT AND PATENT. RT FEMORAL HD CATHETER IN PLACE, COVERED WITH DRY DRESSING. ON GTUBE FEEDING AND PT TOLERATED WELL. RUNNING NEPRO 45CC/HR. ALL DUE MEDS GIVEN ORDERED. ALL SAFETY MEASURES IN PLACE. BED IN LOWEST AND LOCKED POSITION,HOB ELEVATED, SIDE RAILS UP X3, PLACE CALL LIGHT WITH IN REACH. WILL ENDORSE TO MORNING SHIFT NURSE.
[2022-06-26 07:13] LABS: BASOPHILS % (AUTO) 0.3 % (0.0-2.0); EOSINOPHILS % (AUTO) 4.2 % (0.0-6.0); HEMATOCRIT 26 % (33-45); HEMOGLOBIN 8.4 g/dL (11.5-14.8); LYMPHOCYTES % (AUTO) 7.9 % (20.0-44.0); MEAN CORPUSCULAR HGB CONC 33 g/dl (31.0-36.0); MEAN CORPUSCULAR VOLUME 95 fL (82-100); MONOCYTES # (AUTO) 0.8 K/uL (0.1-1.30); MONOCYTES % (AUTO) 6.9 % (2.0-12.0); NEUTROPHILS # (AUTO) 9.8 K/uL (1.8-8.9); NEUTROPHILS % (AUTO) 80.7 % (43.0-81.0); PLATELET COUNT (AUTO) 521 K/uL (150-450); RED BLOOD CELL COUNT(AUTO) 2.71 MIL/uL (4.0-5.2); WHITE BLOOD COUNT (AUTO) 12.1 K/uL (4.3-11.0)
[2022-06-26 07:23] LABS: CALCIUM, SERUM 8.5 mg/dL (8.5-10.1); CARBON DIOXIDE 25 mmol/L (21-32); CHLORIDE 90 mmol/L (98-107); CREATININE 4.9 mg/dL (0.6-1.3); GLUCOSE 123 mg/dL (74-106); POTASSIUM 4.3 mmol/L (3.5-5.1); SODIUM SERUM 126 mmol/L (136-145); UREA NITROGEN, BLOOD 70 mg/dL (7-18)
--- NOTE | 2022-06-26 07:26 | NUR ---
DRAFT ROLLER PICKER OPENING NOTES: RECEIVED PATIENT IN BED, OBTUNDED. OPEN BOTH EYES. ON TRACH TO VENT SETTINGS. PORTEX 8, AC 18, TV 400, FIO2 30% PEEP 8. IV ACCESS ON JASE MIDLINE INTACT AND PATENT. TEMPORARY LEFT FEMORAL HD CATHETER, COVERED WITH DRY DRESSING. ON GTUBE FEEDING AND PT TOLERATED WELL. RUNNING NEPRO 45CC/HR. ALL SAFETY MEASURES IN PLACE. BED IN LOWEST AND LOCKED POSITION,HOB ELEVATED, SIDE RAILS UP X3, PLACE CALL LIGHT WITH IN REACH. WILL CONTINUE TO MONITOR.
[2022-06-26 07:28] LABS: ALANINE AMINOTRANSFERASE 7 U/L (12-78); ALBUMIN 1.6 g/dL (3.4-5.0); ALKALINE PHOSPHATASE 199 U/L (46-116); ASPARTATE AMINOTRANSFERASE 15 U/L (15-37); BILIRUBIN,TOTAL 0.3 mg/dL (0.2-1.0); TOTAL PROTEIN, SERUM 6.8 g/dL (6.4-8.2)
[2022-06-26 08:00] VITALS: BP 154/76
[2022-06-26] MEDS: SEVELAMER CARBONATE 800 MG POWD.PACK GT SCH ×3 (08:41→17:02)
[2022-06-26] MEDS: DOCUSATE SODIUM LIQ 100 MG/10 ML UDC NG SCH (08:41)
[2022-06-26] MEDS: VIT B CMPLX 3/FA/VIT C/BIOTIN 1 TAB TABLET GT SCH (08:41)
[2022-06-26] MEDS: LINEZOLID 600 MG TABLET PO SCH (08:41)
[2022-06-26] MEDS: PANTOPRAZOLE 40 MG/PACK PACK GT SCH (08:42)
[2022-06-26] MEDS: ASPIRIN 81 MG TAB.CHEW GT SCH (08:42)
[2022-06-26] MEDS: ACETAMINOPHEN 325 MG TABLET PO PRN (08:42)
[2022-06-26] MEDS: D5W IV SCH ×2 (08:43→20:43)
[2022-06-26] MEDS: CEFTAROLINE FOSAMIL ACETATE IV SCH ×2 (08:43→20:43)
[2022-06-26] MEDS: CARVEDILOL 3.125 MG TABLET GT SCH ×2 (09:00→21:10)
[2022-06-26] MEDS: THERAHONEY GEL 1.5 OZ TUBE TP SCH (09:55)
--- NOTE | 2022-06-26 09:56 | NUR ---
rn notes: held coreg pt is to start hemodialysis per dialysis nurse not to give coreg pt bp usually drop during dialysis
--- NOTE | 2022-06-26 10:42 | NUR ---
RN notes: temp 98.7, no facial grimacing noted.BP 110/57. pt started dialysis at 0930
[2022-06-26] MEDS: ALBUMIN 25% 25 GM in PREMIX 1 EA IV PRN (10:45)
--- NOTE | 2022-06-26 10:53 | NUR ---
RN NOTES: SEEN BY DR RSOARIO MADE AWARE OF TEMP WAS 99.9, ALSO AWARE THAT COREG WAS HELD, SHOWED MD LEFT FOOT REDNESS , SWOLLEN AND WARM TO TOUCH SAYING POSSIBLE CELLULITIS WITH ORDER OF VENOUS DOPPLER TO RULE OUT DVT. ORDER NOTED AND CARRIED OUT
[2022-06-26 12:00] VITALS: BP 139/68
[2022-06-26] MEDS: NEPRO 1,000 ML BOTTLE GT PRN (13:27)
[2022-06-26 16:00] VITALS: BP 150/56
--- NOTE | 2022-06-26 19:09 | NUR ---
BINDING NICKER CLOSING NOTE: PATIENT REMAINS IN BED, EYES ARE OPEN BUT NON-VERBAL. AOX0. ON TELE MONITOR THAT READS NSR WITH HR OF 96 BPM. WITH TRACHEOSTOMY SIZE PORTEX 8, 99% ON VENT AC MODE RATE 18, TV 400, FIO2 30% PEEP 8. ON TUBE FEEDING VIA G-TUBE WITH NEPRO RUNNING @ 45 MLS/HR 0 RESIDUAL. IV ON JASE MIDLINE, PATENT, INTACT AND FLUSHED WITH NS. DRESSING C/D/I. SAFETY, FALL, ASPIRATION AND PRESSURE ULCER PRECAUTIONS MAINTAINED: BED IN LOWEST AND LOCKED POSITION, BED ALARM ON, HOB ELEVATED, TURNED AND REPOSITIONED Q2H. WILL ENDORSE CONTINUITY OF CARE TO MANAGER HOUSE RN.
--- NOTE | 2022-06-26 19:38 | NUR ---
RN OPENING NOTES: RECEIVED PATIENT IN BED, OBTUNDED. OPEN BOTH EYES. ON TRACH TO VENT SETTINGS. PORTEX 8, AC 18, TV 400, FIO2 30% PEEP 8. IV ACCESS ON JASE MIDLINE INTACT AND PATENT. RT FEMORAL HD CATHETER IN PLACE, COVERED WITH DRY DRESSING. ON GTUBE FEEDING AND PT TOLERATED WELL. RUNNING NEPRO 45CC/HR. PT TOLERATED WELL. ALL SAFETY MEASURES IN PLACE. BED IN LOWEST AND LOCKED POSITION,HOB ELEVATED TO PREVENT ASPIRATIONS. SIDE RAILS UP X3, PLACE CALL LIGHT WITH IN REACH. WILL CONTINUE TO MONITOR.
[2022-06-26 20:00] VITALS: BP 165/69
[2022-06-26 20:35] LABS: HEMOGLOBIN 8.5 g/dL (11.5-14.8)
[2022-06-26] MEDS: OLANZAPINE 2.5 MG TABLET GT SCH (21:10)
[2022-06-26] MEDS: INSULIN GLARGINE, 100 UNIT/ML CARTRIDGE SQ SCH (23:00)
--- NOTE | 2022-06-26 23:08 | NUR ---
RN NOTES: PT'S BLOOD SUGAR 123. 15 UNITS OF LANTUS GIVEN. NO COVERAGE FOR REGULAR INSULIN. NO S/S OF HYPER/HYPOGLYCEMIA. WILL CONTINUE TO MONITOR
[2022-06-27] VITALS: BP 143/71
[2022-06-27] MEDS: ACETAMINOPHEN 325 MG TABLET PO PRN (00:10)
--- NOTE | 2022-06-27 00:18 | NUR ---
RN NOTES: PT'S TEMP INCREASED TO 100.9 F. HR-123. TYLENOL 325 MG 2 TABS GIVEN VIA GTUBE PER PRN ORDER AND PT TOLERATED WELL. WILL CONTINUE TO MONITOR
[2022-06-27 04:00] VITALS: BP 155/70
[2022-06-27] MEDS: BLOOD SUGAR DIAGNOSTIC 1 EACH STRIP IN SCH ×3 (05:47→17:39)
[2022-06-27] MEDS: INSULIN REGULAR, HUMAN 100 UNIT/ML 3 ML VIAL SQ PRN ×3 (05:47→17:39)
--- NOTE | 2022-06-27 05:48 | NUR ---
RN NOTES: PT'S BLOOD SUGAR 84. NO COVERAGE NEEDED. NO S/S OF HYPER/HYPOGLYCEMIA. WILL CONTINUE TO MONITOR
[2022-06-27] MEDS: LEVOTHYROXINE SODIUM 88 MCG TABLET GT SCH (06:25)
--- NOTE | 2022-06-27 06:45 | NUR ---
RN CLOSING NOTES: PATIENT IN BED, OBTUNDED. OPEN BOTH EYES. ON TRACH TO VENT SETTINGS. PORTEX 8, AC 18, TV 400, FIO2 30% PEEP 8. O2 SAT 100%. IV ACCESS ON JASE MIDLINE INTACT AND PATENT. LT FEMORAL HD CATHETER IN PLACE, COVERED WITH DRY DRESSING. ON GTUBE FEEDING AND PT TOLERATED WELL. RUNNING NEPRO 45CC/HR. ALL DUE MEDS GIVEN ORDERED. ALL SAFETY MEASURES IN PLACE. BED IN LOWEST AND LOCKED POSITION,HOB ELEVATED, SIDE RAILS UP X3, PLACE CALL LIGHT WITH IN REACH. WILL ENDORSE TO MORNING SHIFT NURSE.
[2022-06-27 07:14] LABS: CALCIUM, SERUM 8.6 mg/dL (8.5-10.1); CARBON DIOXIDE 28 mmol/L (21-32); CHLORIDE 95 mmol/L (98-107); GLUCOSE 119 mg/dL (74-106); POTASSIUM 3.5 mmol/L (3.5-5.1); SODIUM SERUM 131 mmol/L (136-145); UREA NITROGEN, BLOOD 50 mg/dL (7-18)
[2022-06-27 07:15] LABS: BASOPHILS # (AUTO) 0.1 K/uL (0.0-0.2); BASOPHILS % (AUTO) 0.5 % (0.0-2.0); EOSINOPHILS % (AUTO) 3.6 % (0.0-6.0); HEMATOCRIT 25 % (33-45); HEMOGLOBIN 8.1 g/dL (11.5-14.8); LYMPHOCYTES # (AUTO) 1.3 K/uL (0.8-4.8); LYMPHOCYTES % (AUTO) 7.8 % (20.0-44.0); MEAN CORPUSCULAR HGB CONC 33 g/dl (31.0-36.0); MEAN CORPUSCULAR VOLUME 95 fL (82-100); MONOCYTES % (AUTO) 6.1 % (2.0-12.0); NEUTROPHILS # (AUTO) 13.8 K/uL (1.8-8.9); PLATELET COUNT (AUTO) 519 K/uL (150-450); RED BLOOD CELL COUNT(AUTO) 2.63 MIL/uL (4.0-5.2); WHITE BLOOD COUNT (AUTO) 16.8 K/uL (4.3-11.0)
[2022-06-27 07:20] LABS: ALANINE AMINOTRANSFERASE 7 U/L (12-78); ALBUMIN 1.7 g/dL (3.4-5.0); ALKALINE PHOSPHATASE 193 U/L (46-116); ASPARTATE AMINOTRANSFERASE 17 U/L (15-37); BILIRUBIN,TOTAL 0.3 mg/dL (0.2-1.0); MAGNESIUM 2.2 mg/dL (1.8-2.4); PHOSPHORUS 3.8 mg/dL (2.5-4.9); TOTAL PROTEIN, SERUM 7.1 g/dL (6.4-8.2)
[2022-06-27 08:00] VITALS: BP 163/66
[2022-06-27] MEDS: DOCUSATE SODIUM LIQ 100 MG/10 ML UDC NG SCH (09:01)
[2022-06-27] MEDS: CARVEDILOL 3.125 MG TABLET GT SCH ×2 (09:02→21:35)
[2022-06-27] MEDS: VIT B CMPLX 3/FA/VIT C/BIOTIN 1 TAB TABLET GT SCH (09:02)
[2022-06-27] MEDS: PANTOPRAZOLE 40 MG/PACK PACK GT SCH (09:02)
[2022-06-27] MEDS: SEVELAMER CARBONATE 800 MG POWD.PACK GT SCH ×3 (09:02→17:27)
[2022-06-27] MEDS: ASPIRIN 81 MG TAB.CHEW GT SCH (09:02)
[2022-06-27] MEDS: D5W IV SCH ×2 (09:08→21:35)
[2022-06-27] MEDS: CEFTAROLINE FOSAMIL ACETATE IV SCH ×2 (09:08→21:35)
[2022-06-27] MEDS: THERAHONEY GEL 1.5 OZ TUBE TP SCH (09:08)
[2022-06-27 12:00] VITALS: BP 134/62
[2022-06-27] MEDS: DAPTOMYCIN 500 MG in IV NS 0.9% 50 ML IV SCH (14:45)
[2022-06-27] MEDS: NEPRO 1,000 ML BOTTLE GT PRN (15:00)
[2022-06-27 16:00] VITALS: BP 120/49
[2022-06-27 20:00] VITALS: BP 127/47
--- NOTE | 2022-06-27 20:00 | NUR ---
BUSINESS CONTINUITY SPECIALIST NOTE PT IN BED ASLEEP, EASILY AROUSABLE. ON VENT TOLERATING THE SETTINGS WELL. NO DISTRESS OR DISCOMFORT NOTED. NO S/S OF PAIN NOTED. ON TELE SR HR 86. NEPRO INFUSING AT 45 ML/HR, 0 ML RESIDUAL NOTED. JASE MIDLINE INTACT AND PATENT ALSO L FEMORAL TEMP HD CATH INTACT. SIDE RAILS UP X 2 AND CALL LIGHT WITHIN REACH. CONTINUE TO MONITOR HER. VSS.
[2022-06-27 20:31] LABS: HEMOGLOBIN 7.6 g/dL (11.5-14.8)
[2022-06-27] MEDS: OLANZAPINE 2.5 MG TABLET GT SCH (21:35)
[2022-06-28] VITALS: BP 154/62
[2022-06-28] MEDS: BLOOD SUGAR DIAGNOSTIC 1 EACH STRIP IN SCH ×5 (01:21→23:04)
[2022-06-28] MEDS: INSULIN GLARGINE, 100 UNIT/ML CARTRIDGE SQ SCH ×2 (01:23→22:59)
[2022-06-28 04:00] VITALS: BP 139/57
[2022-06-28] MEDS: INSULIN REGULAR, HUMAN 100 UNIT/ML 3 ML VIAL SQ PRN ×3 (05:58→23:05)
--- NOTE | 2022-06-28 06:50 | NUR ---
PRINTED CIRCUIT BOARDS SOLDER LEVELER NOTE NO CHANGE IN CONDITION, KEPT HER DRY AND CLEAN. ALL NEEDS ATTENDED. ON TELE SR. SIDE RAILS UP X 3 AND CALL LIGHT WITHIN REACH. WILL ENDORSE TO DAY SHIFT NURSE FOR CONTINUE TO CARE.
[2022-06-28 07:16] LABS: BASOPHILS # (AUTO) 0.1 K/uL (0.0-0.2); BASOPHILS % (AUTO) 0.5 % (0.0-2.0); EOSINOPHILS % (AUTO) 6.8 % (0.0-6.0); HEMATOCRIT 23 % (33-45); HEMOGLOBIN 7.5 g/dL (11.5-14.8); LYMPHOCYTES # (AUTO) 1.3 K/uL (0.8-4.8); LYMPHOCYTES % (AUTO) 9.8 % (20.0-44.0); MEAN CORPUSCULAR HGB CONC 33 g/dl (31.0-36.0); MEAN CORPUSCULAR VOLUME 96 fL (82-100); MONOCYTES # (AUTO) 1.1 K/uL (0.1-1.30); MONOCYTES % (AUTO) 8.4 % (2.0-12.0); NEUTROPHILS # (AUTO) 9.8 K/uL (1.8-8.9); NEUTROPHILS % (AUTO) 74.5 % (43.0-81.0); PLATELET COUNT (AUTO) 442 K/uL (150-450); RED BLOOD CELL COUNT(AUTO) 2.39 MIL/uL (4.0-5.2); WHITE BLOOD COUNT (AUTO) 13.2 K/uL (4.3-11.0)
--- NOTE | 2022-06-28 07:30 | NUR ---
pt received in stable condition w/ eyes closed on ventilator pt is non verbal, no s/s of distress. labs reviewed. off loaded w/ pillows, incontinent will requrire rounded to check for wetness and BM. pt is on restraints known to pull at lines and scratch itches. HD line present wound dressing found drenched in dry blood will change dressing on shift.
[2022-06-28 08:00] VITALS: BP 155/62
[2022-06-28 08:12] LABS: ALANINE AMINOTRANSFERASE 9 U/L (12-78); ALBUMIN 1.7 g/dL (3.4-5.0); ALKALINE PHOSPHATASE 154 U/L (46-116); ASPARTATE AMINOTRANSFERASE 17 U/L (15-37); BILIRUBIN,TOTAL 0.3 mg/dL (0.2-1.0); CALCIUM, SERUM 8.8 mg/dL (8.5-10.1); CARBON DIOXIDE 27 mmol/L (21-32); CHLORIDE 97 mmol/L (98-107); CREATININE 3.2 mg/dL (0.6-1.3); GLUCOSE 141 mg/dL (74-106); MAGNESIUM 2.3 mg/dL (1.8-2.4); PHOSPHORUS 3.6 mg/dL (2.5-4.9); POTASSIUM 3.1 mmol/L (3.5-5.1); SODIUM SERUM 134 mmol/L (136-145); UREA NITROGEN, BLOOD 36 mg/dL (7-18)
[2022-06-28] MEDS: LEVOTHYROXINE SODIUM 88 MCG TABLET GT SCH (08:55)
[2022-06-28] MEDS: ASPIRIN 81 MG TAB.CHEW GT SCH (08:56)
[2022-06-28] MEDS: VIT B CMPLX 3/FA/VIT C/BIOTIN 1 TAB TABLET GT SCH (08:56)
[2022-06-28] MEDS: DOCUSATE SODIUM LIQ 100 MG/10 ML UDC NG SCH (08:56)
[2022-06-28] MEDS: PANTOPRAZOLE 40 MG/PACK PACK GT SCH (08:56)
[2022-06-28] MEDS: CARVEDILOL 3.125 MG TABLET GT SCH ×2 (08:57→21:30)
[2022-06-28] MEDS: THERAHONEY GEL 1.5 OZ TUBE TP SCH (08:57)
[2022-06-28] MEDS: SEVELAMER CARBONATE 800 MG POWD.PACK GT SCH ×3 (09:00→17:17)
[2022-06-28] MEDS: D5W IV SCH ×2 (09:21→21:30)
[2022-06-28] MEDS: CEFTAROLINE FOSAMIL ACETATE IV SCH ×2 (09:21→21:30)
[2022-06-28] MEDS ORDERED: POTASSIUM CHLORIDE 20 MEQ POWDER PACKET NG SCH (10:00)
[2022-06-28 12:00] VITALS: BP 156/58
--- NOTE | 2022-06-28 14:00 | NUR ---
pt femoral HD catheter dressed w/ Steril dressing
[2022-06-28] MEDS: MORPHINE SULFATE INJ 2 MG/ML DISP.SYRIN IV PRN (15:49)
[2022-06-28 16:00] VITALS: BP 170/69
--- NOTE | 2022-06-28 18:33 | NUR ---
PT V/S STABLE ALL THROUGH THE SHIFT BP WAS ELVATED AND THE DOC WAS NOTIFIED. HD DRESSING WAS CHANGED W/ STERIL TECHNIQUE PT WAS PUSHING AND GRIMACING DURING DRESSING CHANGE MORPHINE GIVEN.
[2022-06-28] MEDS: NEPRO 1,000 ML BOTTLE GT PRN (18:43)
--- NOTE | 2022-06-28 19:30 | NUR ---
RN NOTES RECEIVED CARE OF PATIENT FROM AM NURSE, PATIENT IN BED, NONVERBAL, OPENS EYES, DOES NOT FOLLOW COMMANDS. PATIENT WITH TRACH ON MECHANICAL VENTILATION WITH ORDERED SETTINGS TOLERATING WELL, NO SOB NOTED, O2 SAT 99%. PATIENT'S TELE MONITOR READING SINUS TACH WITH HR OF 107, NO DISTRESS NOTED ON PATIENT. NO SIGNIFICANT FINDINGS UPON INITIAL NURSING ASSESSMENTS. CARE PLAN REVIEWED. SAFETY MEASURES IMPLEMENTED PER HOSPITAL PROTOCOLS. WILL CARRY OUT PLAN OF CARE.
[2022-06-28 20:00] VITALS: BP 136/76
[2022-06-28 20:03] LABS: HEMOGLOBIN 8.2 g/dL (11.5-14.8)
[2022-06-28] MEDS: OLANZAPINE 2.5 MG TABLET GT SCH (21:30)
[2022-06-29] VITALS: BP 156/70
[2022-06-29 04:00] VITALS: BP 158/64
[2022-06-29] MEDS: BLOOD SUGAR DIAGNOSTIC 1 EACH STRIP IN SCH ×4 (05:55→23:17)
[2022-06-29] MEDS: INSULIN REGULAR, HUMAN 100 UNIT/ML 3 ML VIAL SQ PRN ×3 (05:56→23:18)
[2022-06-29 06:12] LABS: BASOPHILS # (AUTO) 0.1 K/uL (0.0-0.2); BASOPHILS % (AUTO) 0.7 % (0.0-2.0); EOSINOPHILS % (AUTO) 7.8 % (0.0-6.0); HEMATOCRIT 24 % (33-45); HEMOGLOBIN 7.8 g/dL (11.5-14.8); LYMPHOCYTES # (AUTO) 1.5 K/uL (0.8-4.8); LYMPHOCYTES % (AUTO) 9.3 % (20.0-44.0); MEAN CORPUSCULAR HGB CONC 33 g/dl (31.0-36.0); MEAN CORPUSCULAR VOLUME 94 fL (82-100); MONOCYTES % (AUTO) 6.2 % (2.0-12.0); NEUTROPHILS # (AUTO) 12.1 K/uL (1.8-8.9); PLATELET COUNT (AUTO) 499 K/uL (150-450); RED BLOOD CELL COUNT(AUTO) 2.53 MIL/uL (4.0-5.2); WHITE BLOOD COUNT (AUTO) 15.9 K/uL (4.3-11.0)
[2022-06-29 06:18] LABS: ALANINE AMINOTRANSFERASE 9 U/L (12-78); ALBUMIN 1.9 g/dL (3.4-5.0); ALKALINE PHOSPHATASE 157 U/L (46-116); ASPARTATE AMINOTRANSFERASE 16 U/L (15-37); BILIRUBIN,TOTAL 0.4 mg/dL (0.2-1.0); CALCIUM, SERUM 9.3 mg/dL (8.5-10.1); CARBON DIOXIDE 27 mmol/L (21-32); CHLORIDE 96 mmol/L (98-107); CREATININE 4.1 mg/dL (0.6-1.3); GLUCOSE 110 mg/dL (74-106); MAGNESIUM 2.3 mg/dL (1.8-2.4); PHOSPHORUS 3.3 mg/dL (2.5-4.9); SODIUM SERUM 132 mmol/L (136-145); TOTAL PROTEIN, SERUM 7.3 g/dL (6.4-8.2); UREA NITROGEN, BLOOD 51 mg/dL (7-18)
--- NOTE | 2022-06-29 06:22 | NUR ---
RN CLOSING NOTES WILL ENDORSE CARE OF PATIENT TO AM NURSE IN STABLE CONDITIONS. PATIENT'S TEMPERATURE NOTED TO BE ELEVATED AT 0400 WITH A READING OF 100 DEGREES F. COOLING MEASURES INITIATED, LATEST TEMPERATURE READING IS 98.4 DEGREES F. PATIENT NEEDS ANTICIPATED AND MET. PLAN OF CARE CARRIED OUT. WOUND CARE DONE ORDERED. SAFETY MEASURES KEPT IN PLACE. WILL ENDORSE TO AM NURSE FOR SALVATORE.
[2022-06-29 08:00] VITALS: BP 158/64
[2022-06-29] MEDS: THERAHONEY GEL 1.5 OZ TUBE TP SCH (09:00)
[2022-06-29] MEDS: ASPIRIN 81 MG TAB.CHEW GT SCH (10:34)
[2022-06-29] MEDS: PANTOPRAZOLE 40 MG/PACK PACK GT SCH (10:34)
[2022-06-29] MEDS: VIT B CMPLX 3/FA/VIT C/BIOTIN 1 TAB TABLET GT SCH (10:34)
[2022-06-29] MEDS: SEVELAMER CARBONATE 800 MG POWD.PACK GT SCH ×3 (10:34→17:48)
[2022-06-29] MEDS: LEVOTHYROXINE SODIUM 88 MCG TABLET GT SCH (10:35)
[2022-06-29] MEDS: DOCUSATE SODIUM LIQ 100 MG/10 ML UDC NG SCH (10:37)
[2022-06-29] MEDS: CARVEDILOL 3.125 MG TABLET GT SCH ×2 (11:09→21:06)
--- NOTE | 2022-06-29 11:56 | NUR ---
OPENING NOTES RECEIVED PATIENT IN BED. PATIENT IS ON TRACH TO VENT WITH PRESCRIBED SETTINGS, TOLERATING WELL WITH NO RESP DISTRESS NOTED AT THIS TIME. TRACH P#8 O2 SATING AT 99%. PAULA MIDLINE# 18 INTACT FLUSHES WELL GASTRIC TUBE FEEDING RUNNING NEPRO AT 45 CC/HR. SAFETY MEASURES IMPLEMENTED, BED IN LOWEST POSITION, SIDE RAILS UP, CALL LIGHT WITHIN REACH, BED ALARM ON. WILL CONTINUE PLAN OF CARE AND ANTICIPATE NEEDS. DIALYSIS STARTED AT 0800 AND FINISHED AT 1100 PATIENT BLOOD PRESSURE 198/90 HEART RATE 112. HER MEDICATION WERE ON HOLD AND ADMINISTERED AFTER DIALYSIS.
[2022-06-29 12:00] VITALS: BP 143/57
[2022-06-29] MEDS: CEFTAROLINE FOSAMIL ACETATE IV SCH ×2 (12:23→21:07)
[2022-06-29] MEDS: D5W IV SCH ×2 (12:23→21:07)
[2022-06-29] MEDS ORDERED: hydrALAZINE HCL IV 20 MG VIAL IV PRN (12:30)
[2022-06-29] MEDS ORDERED: MEROPENEM 500 MG in IV NS 0.9% 50 ML IV SCH (12:30)
[2022-06-29] MEDS: DAPTOMYCIN 500 MG in IV NS 0.9% 50 ML IV SCH (13:59)
[2022-06-29 16:00] VITALS: BP 147/68
[2022-06-29] MEDS: MEROPENEM 500 MG in IV NS 0.9% 100 ML IV SCH (16:10)
--- NOTE | 2022-06-29 18:00 | NUR ---
CLOSING NOTE: PT REMAINS IN BED, NON-VERBAL, NO CHANGES TO NEURO STATUS. PT REMAINS ON SAME VENT SETTINGS; TOLERATED VENT SETTINGS WELL WITH NO S/S OF RESP DISTRESS, NO SOB OR COUGH, NON-LABORED AND EQUAL BREATHING; O2SAT WAS 95. ATTACHED TO EXTERNAL MONITOR, SR-ST WITH HR RANGING FROM 100-115. PT REMAINS ON BILATERAL SOFT WRIST RESTRAINTS, SKIN AND CIRCULATION REMAINS INTACT; PROVIDED PT WITH RELEASE OF RESTRAINTS AND HYGIENE. WOUNDS ON SACRUM, KNEE, AND FOOT CLEANSED AND PERFORMED WOUND CARE. JASE MIDLINE INTACT AND PATENT; NO FLUIDS/MEDS RUNNING THROUGH IT. ALL MORNING DUE MEDS ADMINISTERED DURING THE DAY, BUT 4 HOURS LATE DUE TO DIALYSIS, BUT AFTERNOON ALL MEDS WERE ADMINISTERED ON TIME .GT DRESSING C/D/I WITH NEPRO RUNNING AT 45 ML/HR; NO RESIDUALS NOTED. BED IN LOWEST POSITION, CALL LIGHT WITHIN REACH, SIDE RAILS UP X3. WILL ENDORSE TO DAYSHIFT NURSE TO CONTINUE CARE.
--- NOTE | 2022-06-29 19:30 | NUR ---
SOIL TECHNICIAN OPENING NOTE RECEIVED PATIENT IN BED, SLEEPING. ON TRACH TO VENT WITH PRESCRIBED SETTINGS, TOLERATING WELL. NO S/SX OF ACUTE RESPIRATORY DISTRESS NOTED AT THIS TIME. IV ACCESS NOTED IN JASE MIDLINE #18g, PATENT AND INTACT, FLUSHES WELL. PT HAS BILATERAL SOFT WRIST RESTRAINTS. NO CIRCULATION ISSUES NOTED. PT HAS GASTRIC TUBE FEEDING, RUNNING NEPRO AT 45 CC/HR. ALL SAFETY MEASURES IN PLACE: BED LOCKED IN LOWEST POSITION, BED ALARM ON. SIDE RAILS UP X 2, CALL LIGHT WITHIN REACH, BED ALARM ON. WILL CONTINUE PLAN OF CARE AND ANTICIPATE NEEDS.
[2022-06-29 20:00] VITALS: BP 131/82
[2022-06-29] MEDS: OLANZAPINE 2.5 MG TABLET GT SCH (21:06)
--- NOTE | 2022-06-29 22:15 | NUR ---
RN NOTE DUE MEDS GIVEN. PT RESTING COMFORTABLY IN BED. NO S/SX OF ACUTE DISTRESS NOTED AT THIS TIME. WILL CONTINUE TO MONITOR.
[2022-06-29] MEDS: INSULIN GLARGINE, 100 UNIT/ML CARTRIDGE SQ SCH (23:17)
[2022-06-29] MEDS: NEPRO 1,000 ML BOTTLE GT PRN (23:52)
[2022-06-30] VITALS: BP 128/60
[2022-06-30 04:00] VITALS: BP 149/75
[2022-06-30] MEDS: IV NS 0.9% 250 ML IV PRN (04:32)
[2022-06-30] MEDS: BLOOD SUGAR DIAGNOSTIC 1 EACH STRIP IN SCH ×4 (05:12→23:25)
[2022-06-30] MEDS: INSULIN REGULAR, HUMAN 100 UNIT/ML 3 ML VIAL SQ PRN ×3 (05:14→23:26)
[2022-06-30] MEDS: LEVOTHYROXINE SODIUM 88 MCG TABLET GT SCH (06:17)
--- NOTE | 2022-06-30 06:50 | NUR ---
NEUROSURGEON CLOSING NOTE NO SIGNIFICANT CHANGE THROUGHOUT THE SHIFT. ALL VS STABLE. SAFETY MEASURES STILL IN PLACE. WILL ENDORSE TO AM SHIFT NURSE FOR SALVATORE.
--- NOTE | 2022-06-30 07:30 | NUR ---
RN OPENING NOTE PATIENT IS IN BED, AWAKE, NON VERBAL. WITH TRACHEOSTOMY TO MECHANICAL VENTILATOR WITH THE FOLLOWING SETTINGS: AC MODE, RR 18, TV 400, FIO2 40%, PEEP 5. BREATHING UNLABORED AND NOT IN ANY FORM OF DISTRESS. SINUS TACHYCARDIA AT 103 ON INSIDE SALES. WITH SOFT WRIST RESTRAINT ON RIGHT HAND, ADEQUATE CIRCULATION NOTED. WITH G-TUBE INTACT AND INFUSING WITH NEPRO AT 45 CC/HR. WITH RIGHT UPPER ARM MIDLINE INTACT AND PATENT. WITH LEFT FEMORAL HD CATHETER INTACT AND COVERED WITH DRY DRESSING. BED IS LOCKED IN LOWEST POSITION, 3 SIDE RAILS UP, CALL LIGHT WITHIN REACH. WILL CONTINUE TO MONITOR.
[2022-06-30 07:52] LABS: BASOPHILS # (AUTO) 0.1 K/uL (0.0-0.2); BASOPHILS % (AUTO) 0.7 % (0.0-2.0); EOSINOPHILS % (AUTO) 6.9 % (0.0-6.0); HEMATOCRIT 23 % (33-45); HEMOGLOBIN 7.2 g/dL (11.5-14.8); LYMPHOCYTES # (AUTO) 1.7 K/uL (0.8-4.8); LYMPHOCYTES % (AUTO) 10.1 % (20.0-44.0); MEAN CORPUSCULAR HGB CONC 32 g/dl (31.0-36.0); MEAN CORPUSCULAR VOLUME 95 fL (82-100); MONOCYTES # (AUTO) 1.3 K/uL (0.1-1.30); MONOCYTES % (AUTO) 7.9 % (2.0-12.0); NEUTROPHILS # (AUTO) 12.7 K/uL (1.8-8.9); NEUTROPHILS % (AUTO) 74.4 % (43.0-81.0); PLATELET COUNT (AUTO) 476 K/uL (150-450); RED BLOOD CELL COUNT(AUTO) 2.37 MIL/uL (4.0-5.2)
[2022-06-30 08:00] VITALS: BP 156/58
[2022-06-30 08:10] LABS: ALANINE AMINOTRANSFERASE 6 U/L (12-78); ALBUMIN 1.8 g/dL (3.4-5.0); ALKALINE PHOSPHATASE 162 U/L (46-116); ASPARTATE AMINOTRANSFERASE 16 U/L (15-37); BILIRUBIN,TOTAL 0.3 mg/dL (0.2-1.0); CALCIUM, SERUM 9.1 mg/dL (8.5-10.1); CARBON DIOXIDE 26 mmol/L (21-32); CHLORIDE 96 mmol/L (98-107); CREATININE 3.4 mg/dL (0.6-1.3); GLUCOSE 135 mg/dL (74-106); MAGNESIUM 2.3 mg/dL (1.8-2.4); PHOSPHORUS 2.4 mg/dL (2.5-4.9); POTASSIUM 4.2 mmol/L (3.5-5.1); SODIUM SERUM 130 mmol/L (136-145); TOTAL PROTEIN, SERUM 7.1 g/dL (6.4-8.2); UREA NITROGEN, BLOOD 40 mg/dL (7-18)
[2022-06-30] MEDS: ASPIRIN 81 MG TAB.CHEW GT SCH (08:49)
[2022-06-30] MEDS: VIT B CMPLX 3/FA/VIT C/BIOTIN 1 TAB TABLET GT SCH (08:49)
[2022-06-30] MEDS: PANTOPRAZOLE 40 MG/PACK PACK GT SCH (08:49)
[2022-06-30] MEDS: CEFTAROLINE FOSAMIL ACETATE IV SCH ×2 (08:49→21:25)
[2022-06-30] MEDS: D5W IV SCH ×2 (08:49→21:25)
[2022-06-30] MEDS: DOCUSATE SODIUM LIQ 100 MG/10 ML UDC NG SCH (08:49)
[2022-06-30] MEDS: SEVELAMER CARBONATE 800 MG POWD.PACK GT SCH ×3 (08:50→17:10)
[2022-06-30] MEDS: CARVEDILOL 3.125 MG TABLET GT SCH ×2 (08:50→21:27)
[2022-06-30] MEDS: THERAHONEY GEL 1.5 OZ TUBE TP SCH (08:51)
[2022-06-30 12:00] VITALS: BP 138/65
[2022-06-30] MEDS: MEROPENEM 500 MG in IV NS 0.9% 100 ML IV SCH (12:26)
[2022-06-30 16:00] VITALS: BP 146/67
[2022-06-30] MEDS ORDERED: NEUTRA PHOS 1 POWD.PACKET GT ONE (17:00)
--- NOTE | 2022-06-30 18:48 | NUR ---
RN CLOSING NOTE PATIENT REMAINED STABLE THROUGHOUT SHIFT. BREATHING UNLABORED AND NOT IN ANY FORM OF DISTRESS. TRACHEOSTOMY IS INTACT AND CONNECTED TO MECHANICAL VENTILATOR FOLLOWING PRESCRIBED SETTINGS. G-TUBE INTACT, SITE IS COVERED WITH DRY DRESSING. RIGHT UPPER ARM MIDLINE INTACT AND PATENT. LEFT FEMORAL HD CATHETER INTACT AND COVERED WITH DRY DRESSING. ALL SAFETY PRECAUTIONS IN PLACE. WILL ENDORSE TO CARPENTER CRADLE AND DOLLY NURSE.
--- NOTE | 2022-06-30 19:06 | NUR ---
RN OPENING NOTE PATIENT. BREATHING UNLABORED AND NOT IN ANY FORM OF DISTRESS. TRACHEOSTOMY IS INTACT AND CONNECTED TO MECHANICAL VENTILATOR FOLLOWING PRESCRIBED SETTINGS. G-TUBE INTACT, SITE IS COVERED WITH DRY DRESSING. RIGHT UPPER ARM MIDLINE INTACT AND PATENT. LEFT FEMORAL HD CATHETER INTACT AND COVERED WITH DRY DRESSING. ALL SAFETY PRECAUTIONS IN PLACE. WILL CONTINUE TO MONITOR.
[2022-06-30 20:39] LABS: HEMOGLOBIN 7.2 g/dL (11.5-14.8)
[2022-06-30 21:02] VITALS: BP 152/68
[2022-06-30] MEDS: OLANZAPINE 2.5 MG TABLET GT SCH (21:27)
[2022-06-30] MEDS: INSULIN GLARGINE, 100 UNIT/ML CARTRIDGE SQ SCH (23:25)
[2022-07-01] VITALS: BP 139/71
[2022-07-01 04:00] VITALS: BP 109/65
[2022-07-01] MEDS: BLOOD SUGAR DIAGNOSTIC 1 EACH STRIP IN SCH ×4 (05:21→23:39)
[2022-07-01] MEDS: INSULIN REGULAR, HUMAN 100 UNIT/ML 3 ML VIAL SQ PRN ×4 (05:27→23:32)
[2022-07-01 06:34] LABS: BASOPHILS # (AUTO) 0.1 K/uL (0.0-0.2); BASOPHILS % (AUTO) 0.6 % (0.0-2.0); EOSINOPHILS % (AUTO) 7.8 % (0.0-6.0); HEMATOCRIT 24 % (33-45); HEMOGLOBIN 8.1 g/dL (11.5-14.8); LYMPHOCYTES # (AUTO) 1.7 K/uL (0.8-4.8); LYMPHOCYTES % (AUTO) 8.9 % (20.0-44.0); MEAN CORPUSCULAR HGB CONC 34 g/dl (31.0-36.0); MEAN CORPUSCULAR VOLUME 94 fL (82-100); MONOCYTES % (AUTO) 5.1 % (2.0-12.0); NEUTROPHILS # (AUTO) 14.8 K/uL (1.8-8.9); NEUTROPHILS % (AUTO) 77.6 % (43.0-81.0); PLATELET COUNT (AUTO) 508 K/uL (150-450); RED BLOOD CELL COUNT(AUTO) 2.54 MIL/uL (4.0-5.2)
--- NOTE | 2022-07-01 06:37 | NUR ---
RN OPENING NOTE PATIENT. BREATHING UNLABORED AND NOT IN ANY FORM OF DISTRESS. TRACHEOSTOMY IS INTACT AND CONNECTED TO MECHANICAL VENTILATOR FOLLOWING PRESCRIBED SETTINGS. G-TUBE INTACT, SITE IS COVERED WITH DRY DRESSING RUNNING NEPHRO @45ML/HR TOLERATING WELL. RIGHT UPPER ARM MIDLINE INTACT AND PATENT. LEFT FEMORAL HD CATHETER INTACT AND COVERED WITH DRY DRESSING. ALL SAFETY PRECAUTIONS IN PLACE. WILL ENDORSE CARE TO DAY SHIFT NURSE.
[2022-07-01] MEDS: LEVOTHYROXINE SODIUM 88 MCG TABLET GT SCH (07:01)
[2022-07-01 07:05] LABS: ALANINE AMINOTRANSFERASE 6 U/L (12-78); ALBUMIN 1.8 g/dL (3.4-5.0); ALKALINE PHOSPHATASE 171 U/L (46-116); ASPARTATE AMINOTRANSFERASE 15 U/L (15-37); BILIRUBIN,TOTAL 0.3 mg/dL (0.2-1.0); CALCIUM, SERUM 9.3 mg/dL (8.5-10.1); CARBON DIOXIDE 28 mmol/L (21-32); CHLORIDE 94 mmol/L (98-107); CREATININE 4.3 mg/dL (0.6-1.3); GLUCOSE 174 mg/dL (74-106); MAGNESIUM 2.4 mg/dL (1.8-2.4); POTASSIUM 4.8 mmol/L (3.5-5.1); SODIUM SERUM 128 mmol/L (136-145); TOTAL PROTEIN, SERUM 7.3 g/dL (6.4-8.2); UREA NITROGEN, BLOOD 58 mg/dL (7-18)
--- NOTE | 2022-07-01 07:20 | NUR ---
RN NOTE RECEIVED PATINET IN BED ON MECHANICAL VENT SETTING PRESCRIBED,NON VERBAL,OBTUNDED,IV SITE IS ON LEFT FEMORAL HD CATH AND RIGHT UPPER ARM MIDLINE INTACT PATENT ON G-TUBE FEEDING NEPRO 45CC/HR CHECKED PLACEMENT IN PLACE NO RESIDUAL NOTED,SOFT RIGHT RESTRAIN IN PLACE WILL CHECK EVERY 15MINS FOR SKIN BREAKDOWN AND CIRCULATION,SAFETY MEASURE IMPLEMENT HEAD OF THE BED ELEVATED ALL THE TIME,BED IN LOW POSITION AND LOCKED,CONTINUE TO MONITOR.
[2022-07-01 08:00] VITALS: BP 137/55
[2022-07-01] MEDS: ASPIRIN 81 MG TAB.CHEW GT SCH (08:12)
[2022-07-01] MEDS: VIT B CMPLX 3/FA/VIT C/BIOTIN 1 TAB TABLET GT SCH (08:12)
[2022-07-01] MEDS: SEVELAMER CARBONATE 800 MG POWD.PACK GT SCH ×3 (08:12→17:50)
[2022-07-01] MEDS: PANTOPRAZOLE 40 MG/PACK PACK GT SCH (08:12)
[2022-07-01] MEDS: DOCUSATE SODIUM LIQ 100 MG/10 ML UDC NG SCH (08:12)
[2022-07-01] MEDS: CARVEDILOL 3.125 MG TABLET GT SCH ×2 (08:13→21:01)
[2022-07-01] MEDS: ACETAMINOPHEN 325 MG TABLET PO PRN ×3 (08:14→21:02)
[2022-07-01] MEDS: THERAHONEY GEL 1.5 OZ TUBE TP SCH (08:25)
[2022-07-01] MEDS: D5W IV SCH ×2 (09:06→20:50)
[2022-07-01] MEDS: CEFTAROLINE FOSAMIL ACETATE IV SCH ×2 (09:06→20:50)
[2022-07-01 12:00] VITALS: BP 102/50
[2022-07-01] MEDS: DAPTOMYCIN 500 MG in IV NS 0.9% 50 ML IV SCH (12:36)
[2022-07-01] MEDS: MEROPENEM 500 MG in IV NS 0.9% 100 ML IV SCH (12:52)
[2022-07-01 16:00] VITALS: BP 110/47
--- NOTE | 2022-07-01 18:24 | NUR ---
RN NOTE PATIENT REMAINS OBTUNDED ON MECHANICAL VENT,ON G-TUBE TOLERATING WELL,ALL DUE MEDS GIVEN MD ORDERED KEPT CLEAN AND DRY ALL THE TIME,REPOSITIONED EVERY 2 HOURS WOUND TREATMENT DONE,TEMPERATURE ON 99.4,WILL ENDORSE NEXT COMING SHIFT FOR CONTINUATION OF CARE
[2022-07-01 20:00] VITALS: BP 110/46
--- NOTE | 2022-07-01 20:27 | NUR ---
RN NOTE RECEIVED CRITICAL FROM LAB. HGB 7.0, HCT 21. INFORMED DR. RICH, WILL "TRANSFUSE IN THE MORNING WITH DIALYSIS IF NECESSARY".
--- NOTE | 2022-07-01 20:52 | NUR ---
CHIEF SERVICE OBSERVER OPENING NOTE PT RECEIVED IN BED, NON-VERBAL, MAKES EYE CONTACT WHEN NAME IS CALLED. PT ON PORTEX #8, AC 18, TV 400, FIO2 30%, PEEP 5; CURRENT O2SAT OF 93%, NO S/S OF RESP DISTRESS, NO SOB OR COUGH, NON-LABORED AND EQUAL BREATHING. PT ATTACHED TO EXTERNAL MONITOR, ST WITH HR OF 111. GTD C/D/I WITH NEPRO RUNNING AT 45 ML/HR; NO RESIDUAL NOTED. PT NOTED TO HAVE RIGHT WRIST RESTRAINT; NO SIGNS OF IMPAIRED SKIN OR CIRCULATION; WILL PROVIDE RELEASE OF RESTRAINTS AND HYGIENE. JASE MIDLINE INTACT AND PATENT, CURRENTLY HAS NO FLUIDS/MEDS RUNNING THROUGH IT. TEMPORARY HD CATH NOTED TO BE ON RIGHT FEMORAL. BED IN LOWEST POSITION, CALL LIGHT WITHIN REACH, SIDE RAILS UP X3. WILL CONTINUE TO MONITOR THROUGHOUT THE NIGHT.
[2022-07-01] MEDS: OLANZAPINE 2.5 MG TABLET GT SCH (21:02)
--- NOTE | 2022-07-01 21:02 | NUR ---
RN NOTE PT NOTED TO HAVE TEMP OF 99.7. TYLENOL 650 MG ADMINISTERED, COOLING MEASURES ENFORCED, WILL MONITOR FOR EFFECTIVENESS.
[2022-07-01] MEDS: INSULIN GLARGINE, 100 UNIT/ML CARTRIDGE SQ SCH (23:31)
[2022-07-02] VITALS (7 sets, daily range): BP systolic 99–147; BP diastolic 41–58
[2022-07-02] MEDS: NEPRO 1,000 ML BOTTLE GT PRN (01:15)
[2022-07-02] MEDS: BLOOD SUGAR DIAGNOSTIC 1 EACH STRIP IN SCH ×3 (05:12→17:25)
[2022-07-02 06:36] LABS: BASOPHILS # (AUTO) 0.1 K/uL (0.0-0.2); BASOPHILS % (AUTO) 0.3 % (0.0-2.0); EOSINOPHILS % (AUTO) 6.6 % (0.0-6.0); HEMATOCRIT 21 % (33-45); LYMPHOCYTES # (AUTO) 1.6 K/uL (0.8-4.8); LYMPHOCYTES % (AUTO) 7.7 % (20.0-44.0); MEAN CORPUSCULAR HGB CONC 33 g/dl (31.0-36.0); MEAN CORPUSCULAR VOLUME 95 fL (82-100); MONOCYTES # (AUTO) 1.5 K/uL (0.1-1.30); MONOCYTES % (AUTO) 7.3 % (2.0-12.0); NEUTROPHILS # (AUTO) 16.4 K/uL (1.8-8.9); NEUTROPHILS % (AUTO) 78.1 % (43.0-81.0); PLATELET COUNT (AUTO) 452 K/uL (150-450); RED BLOOD CELL COUNT(AUTO) 2.18 MIL/uL (4.0-5.2)
--- NOTE | 2022-07-02 06:42 | NUR ---
EXECUTIVE STAFF ASSISTANT CLOSING NOTE PT REMAINS IN BED, NON-VERBAL, OPENS EYES; NO CHANGES TO NEURO STATUS. PT REMAINS ON SAME VENT SETTINGS; TOLERATED VENT SETTINGS WELL; O2SAT RANGED FROM 98%-100% LAST NIGHT, NO S/S OF RESP DISTRESS, NO SOB OR COUGH, NON-LABORED AND EQUAL BREATHING. ATTACHED TO EXTERNAL MONITOR, ST WITH HR RANGING FROM 100-111. LEFT FEMORAL HD CATH INTACT AND PATENT. WOUND CLEANSED AND APPLIED NEW DRESSING. RIGHT WRIST RESTRAINT REMAINS IN PLACE, NO SIGNS OF IMPAIRED SKIN OR CIRCULATION; PROVIDED PT WITH RELEASE OF RESTRAINTS AND HYGIENE. GTD C/D/I, NEPRO RUNNING AT 45 ML/HR. JASE MIDLINE INTACT AND PATENT, FLUSHES EASILY WITH NO RESISTANCE; NO FLUIDS/MEDS RUNNING THROUGH IT. ALL DUE MEDS ADMINISTERED DURING THE SHIFT. BED IN LOWEST POSITION, CALL LIGHT WITHIN REACH, SIDE RAILS UP X3. WILL ENDORSE TO DAYSHIFT NURSE TO CONTINUE CARE.
[2022-07-02 07:09] LABS: ALANINE AMINOTRANSFERASE 8 U/L (12-78); ALBUMIN 1.7 g/dL (3.4-5.0); ALKALINE PHOSPHATASE 192 U/L (46-116); ASPARTATE AMINOTRANSFERASE 14 U/L (15-37); BILIRUBIN,TOTAL 0.3 mg/dL (0.2-1.0); CALCIUM, SERUM 9.7 mg/dL (8.5-10.1); CARBON DIOXIDE 26 mmol/L (21-32); CHLORIDE 93 mmol/L (98-107); CREATININE 5.4 mg/dL (0.6-1.3); GLUCOSE 158 mg/dL (74-106); MAGNESIUM 2.6 mg/dL (1.8-2.4); PHOSPHORUS 3.3 mg/dL (2.5-4.9); POTASSIUM 4.6 mmol/L (3.5-5.1); SODIUM SERUM 128 mmol/L (136-145); UREA NITROGEN, BLOOD 77 mg/dL (7-18)
--- NOTE | 2022-07-02 07:38 | NUR ---
RN OPENING NOTES: RECEIVED PATIENT IN BED, ASLEEP BUT EASILY AROUSES TO SOUND AND TACTILE STIMULI. ON TELE MONITOR OF ST WITH HR OF 108. ON MECHANICAL VENT PORTEX # 8, SETTING OF AC 18, TIDAL VOLUME OF 400 FI02 OF 30% AND PEEP OF 5. PATIENT IN NO RESPIRATORY DISTRESS NOTED. BREATHING EVEN AND UNLABORED. HAS SALINE LOCK ON RIGHT UPPER ARM MIDLINE FLUSHING WELL, NO S/S OF INFILTRATION. HAS GTUBE FEEDING OF NEPHRO @ 45 ML/HR, G TUBE SITE CLEAN AND DRY, NO RESIDUAL NOTED AND CHECKED FOR PLACEMENT. HOB ELEVATED, BED LOCKED AND IN LOWEST POSITION. SAFETY MEASURES IN PLACE. WILL CONTINUE TO MONITOR THROUGHOUT SHIFT.
[2022-07-02 07:44] LABS: HEMOGLOBIN 6.7 g/dL (11.5-14.8)
[2022-07-02] MEDS: LEVOTHYROXINE SODIUM 88 MCG TABLET GT SCH (07:46)
[2022-07-02] MEDS: CARVEDILOL 3.125 MG TABLET GT SCH ×2 (09:00→22:33)
[2022-07-02] MEDS: DOCUSATE SODIUM LIQ 100 MG/10 ML UDC NG SCH (09:05)
[2022-07-02] MEDS: PANTOPRAZOLE 40 MG/PACK PACK GT SCH (09:05)
[2022-07-02] MEDS: ASPIRIN 81 MG TAB.CHEW GT SCH (09:05)
[2022-07-02] MEDS: SEVELAMER CARBONATE 800 MG POWD.PACK GT SCH ×3 (09:05→17:33)
[2022-07-02] MEDS: D5W IV SCH ×2 (09:08→22:54)
[2022-07-02] MEDS: CEFTAROLINE FOSAMIL ACETATE IV SCH ×2 (09:08→22:54)
[2022-07-02] MEDS: VIT B CMPLX 3/FA/VIT C/BIOTIN 1 TAB TABLET GT SCH (09:08)
[2022-07-02] MEDS: THERAHONEY GEL 1.5 OZ TUBE TP SCH (09:09)
[2022-07-02 10:21] LABS: BAND % (MANUAL) 2 % (0.0-5.0); EOSINOPHILS % (MANUAL) 4 % (0-4); LYMPHOCYTES % (MANUAL) 5 % (16-48); MONOCYTES % (MANUAL) 5 % (0-11.0); NEUTROPHILS % (MANUAL) 84 (42-76)
[2022-07-02 11:28] LABS: IRON, SERUM 19 ug/dl (50-175); TOTAL IRON BINDING CAPACITY 150 ug/dl (250-450)
--- NOTE | 2022-07-02 11:45 | NUR ---
RN NOTE 1 UNIT OF PR[facility] WAS STARTED FOR TRANSFUSION WITH HEMODIALYSIS. HD NURSE STARTED TRANSFUSION, VITAL SIGNS T-98.9, PULSE-102, RR-19, BP-100/43.
[2022-07-02 12:03] LABS: FERRITIN 3551 ng/mL (8-388)
[2022-07-02] MEDS: INSULIN REGULAR, HUMAN 100 UNIT/ML 3 ML VIAL SQ PRN ×3 (12:55→23:13)
[2022-07-02] MEDS: MEROPENEM 500 MG in IV NS 0.9% 100 ML IV SCH (13:25)
--- NOTE | 2022-07-02 13:25 | NUR ---
RN NOTE HEMODIALYSIS COMPLETED 2 LITERS REMOVED. POST HD VITAL [id number], RR-19, BP-126/60.
--- NOTE | 2022-07-02 18:44 | NUR ---
RN CLOSING NOTES: PATIENT IN BED, ASLEEP BUT EASILY AROUSABLE TO TO SOUND AND TOUCH. ON MECHANICAL VENT PORTEX # 8, WITH SETTING FOLLOWS: AC 18, TIDAL VOLUME 400 FI02 30% AND PEEP OF 5. NO SOB NOTED AND NO RESPIRATORY DISTRESS NOTED. SALINE LOCK ON RIGHT UPPER ARM MIDLINE FLUSHING WELL, NO REDNESS AND NO S/S OF INFILTRATION. GTUBE FEEDING OF NEPHRO RUNNING @ 45 ML/HR, G TUBE SITE CLEAN AND DRY, NO RESIDUAL NOTED AND CHECKED FOR PLACEMENT. HOB ELEVATED, BED LOCKED AND IN LOWEST POSITION. KEPT PATIENT CLEAN AND DRY AND WOUND CARE TREATMENT PROVIDED TO THE PATIENT. SAFETY MEASURES IN PLACE. WILL ENDORSE TO NEXT SHIFT NURSE FOR CONTINUATION OF CARE
[2022-07-02 20:44] LABS: HEMOGLOBIN 8.1 g/dL (11.5-14.8)
--- NOTE | 2022-07-02 21:34 | NUR ---
ENERGY PROJECT MANAGER OPENING NOTE PT RECEIVED IN BED, NON-VERBAL, OPENS EYES AND MAKES EYE CONTACT. PT ON PORTEX #8, AC 18, TV 400, FIO2 30%, PEEP 5; CURRENT O2SAT OF 97%; NO S/S OF RESP DISTRESS, NO SOB OR COUGH, NON-LABORED AND EQUAL BREATHING. PT ATTACHED TO EXTERNAL MONITOR, ST WITH HR OF 111. PT HAS RIGHT SOFT WRIST RESTRAINT, NO SIGNS OF IMPAIRED SKIN OR CIRCULATION; WILL PROVIDE PT WITH RELEASE OF RESTRAINTS AND HYGIENE. GTD C/D/I, NEPRO RUNNING AT 45 ML/HR; NO RESIDUAL NOTED. JASE MIDLINE INTACT AND PATENT; NO MEDS/FLUIDS RUNNING THROUGH IT AT THE MOMENT. LEFT FEMORAL HD CATH IN PLACE. BED IN LOWEST POSITION, CALL LIGHT WITHIN REACH, SIDE RAILS UP X3. WILL CONTINUE TO MONITOR THROUGHOUT THE NIGHT.
[2022-07-02] MEDS: ACETAMINOPHEN 325 MG TABLET PO PRN (22:33)
[2022-07-02] MEDS: OLANZAPINE 2.5 MG TABLET GT SCH (22:33)
--- NOTE | 2022-07-02 22:34 | NUR ---
RN NOTE PT NOTED TO HAVE TEMPERATURE OF 102.2. PT ADMINISTERED TYLENOL 650 MG. WILL MONITOR FOR EFFECTIVENESS
[2022-07-02] MEDS: INSULIN GLARGINE, 100 UNIT/ML CARTRIDGE SQ SCH (23:11)
[2022-07-03] VITALS: BP 118/51
[2022-07-03] MEDS: BLOOD SUGAR DIAGNOSTIC 1 EACH STRIP IN SCH ×5 (00:37→23:09)
[2022-07-03 04:00] VITALS: BP 112/54
[2022-07-03] MEDS: NEPRO 1,000 ML BOTTLE GT PRN (04:14)
--- NOTE | 2022-07-03 05:11 | NUR ---
RN NOTE PT NOTED TO HAVE BG OF 58 MG/DL. PT ADMINISTERED D50. WILL MONITOR FOR EFFECTIVENESS.
--- NOTE | 2022-07-03 06:46 | NUR ---
SEISMOMETER OPERATOR CLOSING NOTE PT REMAINS IN BED, NON-VERBAL, OPENS EYES. REMAINS ON SAME VENT SETTINGS WITH NO CHANGES; PT TOLERATED VENT SETTINGS WELL WITH NO S/S OF RESP DISTRESS, NO SOB OR COUGH, NON-LABORED AND EQUAL BREATHING; APPEARS COMFORTABLE OVERALL; O2SAT RANGED FROM 97%-98% THROUGHOUT THE NIGHT. ATTACHED TO EXTERNAL MONITOR, SR-ST WITH BBB, HR GOT HIGH 110. WOUNDS CLEANSED AND NEW DRESSINGS APPLIED. RIGHT SOFT WRIST RESTRAINT REMAINS IN PLACE WITH NO SIGNS OF IMPAIRED SKIN OR CIRCULATION; PT PROVIDED WITH RELEASE OF RESTRAINTS AND HYGIENE. NEPRO RUNNING AT 45 ML/HR; PT TOLERATED FEEDING WELL. THERE WAS INCREASE OF BG FROM 58-154 AFTER ADMINISTERING D50. BED IN LOWEST POSITION, CALL LIGHT WITHIN REACH, SIDE RAILS UP X3. WILL ENDORSE TO DAYSHIFT NURSE TO CONTINUE CARE.
[2022-07-03 07:08] LABS: BASOPHILS # (AUTO) 0.1 K/uL (0.0-0.2); BASOPHILS % (AUTO) 0.4 % (0.0-2.0); CARBON DIOXIDE 27 mmol/L (21-32); CHLORIDE 100 mmol/L (98-107); CREATININE 3.8 mg/dL (0.6-1.3); GLUCOSE 167 mg/dL (74-106); HEMATOCRIT 25 % (33-45); HEMOGLOBIN 8.2 g/dL (11.5-14.8); LYMPHOCYTES # (AUTO) 1.5 K/uL (0.8-4.8); LYMPHOCYTES % (AUTO) 7.6 % (20.0-44.0); MAGNESIUM 2.6 mg/dL (1.8-2.4); MEAN CORPUSCULAR HGB CONC 32 g/dl (31.0-36.0); MEAN CORPUSCULAR VOLUME 91 fL (82-100); MONOCYTES # (AUTO) 1.5 K/uL (0.1-1.30); NEUTROPHILS # (AUTO) 15.1 K/uL (1.8-8.9); PHOSPHORUS 2.6 mg/dL (2.5-4.9); PLATELET COUNT (AUTO) 497 K/uL (150-450); POTASSIUM 4.3 mmol/L (3.5-5.1); RED BLOOD CELL COUNT(AUTO) 2.78 MIL/uL (4.0-5.2); SODIUM SERUM 138 mmol/L (136-145); UREA NITROGEN, BLOOD 49 mg/dL (7-18); WHITE BLOOD COUNT (AUTO) 19.3 K/uL (4.3-11.0)
--- NOTE | 2022-07-03 07:15 | NUR ---
RN OPENING NOTES RECEIVED PATIENT IN BED, NON-VERBAL, OPENS EYES AND MAKES EYE CONTACT. PATIENT ON MECHANICAL VENT PORTEX #8, WITH SETTINGS OF AC 18, TV 400, FIO2 30%, PEEP 5; CURRENT O2SAT OF 97%; NO S/S OF RESPIRATORY DISTRESS, NO SOB NOTED AT THE TIME. ATTACHED TO EXTERNAL MONITOR, ST WITH HR OF 111. PT HAS RIGHT SOFT WRIST RESTRAINT, NO SIGNS OF IMPAIRED SKIN OR CIRCULATION; WILL PROVIDE PT WITH RELEASE OF RESTRAINTS AND HYGIENE. ON GT FEEDING NEPRO RUNNING AT 45 ML/HR; NO RESIDUAL NOTED, WITH POSITIVE PLACEMENT NOTED. JASE MIDLINE INTACT AND PATENT; NO MEDS/FLUIDS INFUSING AT THE MOMENT. LEFT FEMORAL HD CATH IN PLACE. ALL SAFETY MEASURES IN PLACE, BED IN LOWEST POSITION, CALL LIGHT WITHIN REACH, SIDE RAILS UP X3. WILL CONTINUE TO MONITOR THROUGHOUT THE SHIFT.
[2022-07-03 08:00] VITALS: BP 138/58
[2022-07-03] MEDS: LEVOTHYROXINE SODIUM 88 MCG TABLET GT SCH (08:07)
[2022-07-03] MEDS: SEVELAMER CARBONATE 800 MG POWD.PACK GT SCH ×3 (08:08→17:24)
[2022-07-03] MEDS: CARVEDILOL 3.125 MG TABLET GT SCH ×2 (08:08→21:30)
[2022-07-03] MEDS: ASPIRIN 81 MG TAB.CHEW GT SCH (08:08)
[2022-07-03] MEDS: VIT B CMPLX 3/FA/VIT C/BIOTIN 1 TAB TABLET GT SCH (08:08)
[2022-07-03] MEDS: DOCUSATE SODIUM LIQ 100 MG/10 ML UDC NG SCH (08:08)
[2022-07-03] MEDS: PANTOPRAZOLE 40 MG/PACK PACK GT SCH (08:08)
[2022-07-03] MEDS: THERAHONEY GEL 1.5 OZ TUBE TP SCH (08:09)
[2022-07-03] MEDS: D5W IV SCH ×2 (09:16→21:29)
[2022-07-03] MEDS: CEFTAROLINE FOSAMIL ACETATE IV SCH ×2 (09:16→21:29)
[2022-07-03 10:49] LABS: OCCULT BLOOD STOOL NEGATIVE (NEGATIVE)
[2022-07-03 12:00] VITALS: BP 116/76
[2022-07-03] MEDS: DAPTOMYCIN 500 MG in IV NS 0.9% 50 ML IV SCH (12:37)
[2022-07-03] MEDS: MEROPENEM 500 MG in IV NS 0.9% 100 ML IV SCH (14:45)
[2022-07-03 16:00] VITALS: BP 124/56
[2022-07-03] MEDS: INSULIN REGULAR, HUMAN 100 UNIT/ML 3 ML VIAL SQ PRN ×2 (17:27→23:37)
[2022-07-03] MEDS: Z GUARD REMEDY 4 OZ OINT TP PRN (18:51)
--- NOTE | 2022-07-03 18:59 | NUR ---
RN CLOSING NOTES NO SIGNIFICANT CHANGES ON PATIENT CONDITION THROUGHOUT SHIFT. PATIENT IN BED,SLEEPING, EASILY AROUSES. PATIENT ON MECHANICAL VENT PORTEX #8, WITH SETTINGS OF AC 18, TV 400, FIO2 30%, PEEP 5; NO S/S OF RESPIRATORY DISTRESS, NO SOB NOTED AT THE TIME. ON GT FEEDING NEPRO RUNNING AT 45 ML/HR; NO RESIDUAL NOTED, WITH POSITIVE PLACEMENT NOTED. JASE MIDLINE INTACT AND PATENT; NO SIGNS OF INFILTRATION ON SITE. LEFT FEMORAL HD CATH IN PLACE, DRESSING C/D/I. ALL DUE MEDS GIVEN ORDERED. WOUND CARE RENDERED AND TOLERATED WELL. KEPT PATIENT CLEAN DRY AND COMFORTABLE. ALL NEEDS ANTICIPATED. ALL SAFETY MEASURES IN PLACE, BED IN LOWEST POSITION, CALL LIGHT WITHIN REACH, SIDE RAILS UP X3. WILL ENDORSE TO WORKPLACE RELATIONS ADVISER NURSE FOR CONTINUITY OF CARE.
[2022-07-03 20:00] VITALS: BP 142/57
--- NOTE | 2022-07-03 20:06 | NUR ---
RT NOTE PT RECEIVED TRACHED ON MECHANICAL VENTILATION. CUFF CHECKED VIA MELTER SUPERVISOR OXYGEN FURNACE. AMBU BAG/BACK UP TRACH @ BEDSIDE. SUCTION DONE, TRACH SECURED AND PATENT. ALARMS ON AND AUDIBLE. VENT PLUGGED TO RED OUTLET. CONT. PULSE OX CONNECTED. Addendum: 07/03/22 at 2007 by ODETTE HORN RT Amended: Links added.
--- NOTE | 2022-07-03 20:09 | NUR ---
UNIT OPERATOR OPENING NOTE PT RECEIVED IN BED, NON-VERBAL, OPENS EYES. PT NOTED TO HAVE PORTEX #8, AC 18, TV 400, FIO2 30%, PEEP 5 WITH CURRENT O2SAT OF 99%; PT APPEARS COMFORTABLE AND IN O APPARENT DISTRESS, NO SOB OR COUGH, NON-LABORED AND EQUAL BREATHING. PT ATTACHED TO EXTERNAL MONITOR SR WITH CURRENT HR OF 96. PT HAS RIGHT SOFT WRIST RESTRAINT, NO SIGNS OF IMPAIRED SKIN OR CIRCULATION; WILL PROVIDE RELEASE OF RESTRAINT AND HYGIENE. GTD C/D/I, NEPRO RUNNING AT 45 ML/HR; NO RESIDUAL NOTED. JASE MIDLINE INTACT AND PATENT, FLUSHES EASILY WITH NO RESISTANCE; CURRENTLY HAS NO MEDS RUNNING THROUGH IT. BED IN LOWEST POSITION, CALL LIGHT WITHIN REACH, SIDE RAILS UP X3. WILL CONTINUE TO MONITOR THROUGHOUT THE NIGHT.
[2022-07-03] MEDS: OLANZAPINE 2.5 MG TABLET GT SCH (21:29)
[2022-07-03] MEDS: INSULIN GLARGINE, 100 UNIT/ML CARTRIDGE SQ SCH (23:36)
[2022-07-04] VITALS: BP 144/60
[2022-07-04 04:00] VITALS: BP 148/62
[2022-07-04] MEDS: BLOOD SUGAR DIAGNOSTIC 1 EACH STRIP IN SCH ×4 (05:39→23:16)
[2022-07-04] MEDS: INSULIN REGULAR, HUMAN 100 UNIT/ML 3 ML VIAL SQ PRN ×3 (05:42→23:11)
--- NOTE | 2022-07-04 06:52 | NUR ---
TELEPHONE PLANT POWER OPERATOR CLOSING NOTE PT REMAINS IN BED, NON-VERBAL, OPENS EYES; NO CHANGES TO NEURO STATUS. PT REMAINS ON SAME VENT SETTINGS; PT TOLERATED VENT SETTINGS WELL; O2SAT RANGED FROM 96%-100%; NO S/S OF RESP DISTRESS, NO SOB OR COUGH, NON-LABORED AND EQUAL BREATHING. ATTACHED TO EXTERNAL MONITOR SR-ST, HR GOT HIGH 110. RIGHT SOFT WRIST RESTRAINT REMAINS IN PLACE, NO SIGNS OF IMPAIRED SKIN OR CIRCULATION; PROVIDED PT WITH RELEASE OF RESTRAINT AND HYGIENE. GTD C/D/I, NEPRO RUNNING AT 45 ML/HR; NO RESIDUAL NOTED. WOUNDS CLEANSED AND NEW DRESSINGS APPLIED. JASE MIDLINE INTACT AND PATENT, FLUSHES EASILY WITH NO RESISTANCE; CURRENTLY HAS NO MEDS RUNNING THROUGH IT. ALL DUE MEDS ADMINISTERED DURING THE NIGHT. BED IN LOWEST POSITION, CALL LIGHT WITHIN REACH, SIDE RAILS UP X3. WILL ENDORSE TO DAYSHIFT NURSE TO CONTINUE CARE.
--- NOTE | 2022-07-04 07:20 | NUR ---
RN/TELE OPENING NOTE PATIENT ASLEEP A&OX0. OBTUNDED. SR, PATIENT SATTING AT 100% ON VENT AC MODE RATE 18, TV 400, FIO2 30% PEEP 8. DIET NEPRO 1.8 @ 45 MLS/HR 0 RESIDUAL. IV JASE MIDLINE PATENT, INTACT AND FLUSHED WITH NS. ALL SAFETY FALL PRECAUTIONS IN PLACE BED IN LOWEST POSITION, BED LOCK ON, BED ALARM ON, SIDE RAILS UP, CALL LIGHT WITHIN REACH. WILL CONTINUE TO MONITOR.
[2022-07-04 08:00] VITALS: BP 139/61
[2022-07-04] MEDS: DOCUSATE SODIUM LIQ 100 MG/10 ML UDC NG SCH (08:45)
[2022-07-04] MEDS: CARVEDILOL 3.125 MG TABLET GT SCH ×2 (08:45→20:22)
--- NOTE | 2022-07-04 08:45 | NUR ---
RECEIVED HANDOFF REPORT FROM [facility]. WILL CONTINUE PLAN OF CARE AND ANTICIPATE NEEDS.
[2022-07-04] MEDS: SEVELAMER CARBONATE 800 MG POWD.PACK GT SCH ×3 (08:46→17:24)
[2022-07-04] MEDS: ASPIRIN 81 MG TAB.CHEW GT SCH (08:46)
[2022-07-04] MEDS: PANTOPRAZOLE 40 MG/PACK PACK GT SCH (08:46)
[2022-07-04] MEDS: LEVOTHYROXINE SODIUM 88 MCG TABLET GT SCH (08:46)
[2022-07-04] MEDS: VIT B CMPLX 3/FA/VIT C/BIOTIN 1 TAB TABLET GT SCH (08:46)
[2022-07-04] MEDS: THERAHONEY GEL 1.5 OZ TUBE TP SCH (08:47)
[2022-07-04] MEDS: D5W IV SCH ×2 (08:47→20:11)
[2022-07-04] MEDS: CEFTAROLINE FOSAMIL ACETATE IV SCH ×2 (08:47→20:11)
--- NOTE | 2022-07-04 09:25 | NUR ---
RN/TELE NOTE PATIENT ASLEEP A&OX0. OBTUNDED. SR, PATIENT SATTING AT 100% ON VENT AC MODE RATE 18, TV 400, FIO2 30% PEEP 8. DIET NEPRO @ 45 MLS/HR 0 RESIDUAL. IV JASE MIDLINE PATENT, INTACT AND FLUSHED WITH NS. ALL SAFETY FALL PRECAUTIONS IN PLACE BED IN LOWEST POSITION, BED LOCK ON, BED ALARM ON, SIDE RAILS UP, CALL LIGHT WITHIN REACH. ALL CARE ENDORSED TO RN, FOR CONTINUATION OF CARE.
[2022-07-04] MEDS: ACETAMINOPHEN 325 MG TABLET PO PRN ×2 (09:31→20:12)
--- NOTE | 2022-07-04 09:31 | NUR ---
ADMINISTERED TYLENOL 650 MGS FOR TEMPERATURE OF 100.0 DEGREES FARENHEIT. WILL RECHECK TEMPERATURE IN ONE HOUR
--- NOTE | 2022-07-04 10:31 | NUR ---
TEMPERATURE RECHECKED NOW AT 99.4 DEGREES. COOL PACKA APPLIED, WILL RECHECK IN ONE HOUR.
[2022-07-04] MEDS: NEPRO 1,000 ML BOTTLE GT PRN (10:42)
--- NOTE | 2022-07-04 11:31 | NUR ---
TEMPERATURE RECHECK DONE, NOW AT 98.9 DEGREES FARENHEIT
[2022-07-04 12:00] VITALS: BP 113/56
[2022-07-04] MEDS: MEROPENEM 500 MG in IV NS 0.9% 100 ML IV SCH (12:42)
[2022-07-04 16:00] VITALS: BP 105/52
[2022-07-04] MEDS: ALBUMIN 25% 25 GM in PREMIX 1 EA IV PRN (16:11)
--- NOTE | 2022-07-04 18:42 | NUR ---
RN CLOSING NOTE PATIENT REMAINS IN BED ON MECHANICAL VENTILATOR, TOLERATING SETTINGS WELL. PATIENT NONVERBAL BUT CAN OPEN HER EYES. ATTACHED TO EXTERNAL SPECIFICATIONS WRITER READING NORMAL SINUS RHYTHM. FEMORAL HEMODIALYSIS CATHETER NOTED, REMOVED 2260 MLS OF FLUID TODAY. SKIN ALTERATIONS DOCUMENTED IN PHYSICAL CHART. IV ACCESS ON RIGHT UPPER ARM MIDLINE PATENT AND FLUSHING WITH NO RESISTANCE. ALL DUE MEDICATIONS ADMINISTERED, PATIENT KEPT CLEAN AND DRY. SAFETY MEASURES IMPLEMENTED, BED IN LOWEST LOCKED POSITION, SIDE RAILS UP TIMES TWO, CALL LIGHT WITHIN REACH. WILL ENDORSE PATIENT TO ONCOMING NIGHTSHIFT RN FOR CONTINUATION OF CARE.
--- NOTE | 2022-07-04 19:30 | NUR ---
CONTENT MANAGER OPENING NOTE RECEIVED PT IN BED, NON-VERBAL BUT OPENS EYES AT TIMES. PT NOTED TO HAVE PORTEX #8, AC 18, TV 400, FIO2 30%, PEEP 5 WITH CURRENT O2 SAT OF 99%; PT APPEARS COMFORTABLE WITH NO S/SX OF ACUTE DISTRESS NOTED AT THIS TIME. NON-LABORED AND EQUAL BREATHING. PT ATTACHED TO EXTERNAL MONITOR SR WITH CURRENT HR OF 99. PT HAS RIGHT SOFT WRIST RESTRAINT, NO SIGNS OF IMPAIRED SKIN OR CIRCULATION; WILL PROVIDE RELEASE OF RESTRAINT AND HYGIENE. GTD C/D/I, NEPRO RUNNING AT 45 ML/HR; NO RESIDUAL NOTED. JASE MIDLINE INTACT AND PATENT, FLUSHES EASILY WITH NO RESISTANCE. ALL SAFETY MEASURES IN PLACE: CALL LIGHT WITHIN REACH, SIDE RAILS UP X3. BED LOCKED AND IN LOW POSITION. WILL CONTINUE TO MONITOR THROUGHOUT THE NIGHT.
[2022-07-04 20:00] VITALS: BP 126/49
[2022-07-04] MEDS: OLANZAPINE 2.5 MG TABLET GT SCH (21:20)
[2022-07-04] MEDS: INSULIN GLARGINE, 100 UNIT/ML CARTRIDGE SQ SCH (23:10)
[2022-07-05] VITALS: BP 118/49
[2022-07-05 04:00] VITALS: BP 137/62
[2022-07-05] MEDS: BLOOD SUGAR DIAGNOSTIC 1 EACH STRIP IN SCH ×4 (05:07→23:30)
[2022-07-05] MEDS: INSULIN REGULAR, HUMAN 100 UNIT/ML 3 ML VIAL SQ PRN ×2 (05:09→23:33)
[2022-07-05] MEDS: LEVOTHYROXINE SODIUM 88 MCG TABLET GT SCH (06:04)
--- NOTE | 2022-07-05 06:13 | NUR ---
HUMAN RESOURCES LEADER CLOSING NOTE NO SIGNIFICANT CHANGE THROUGHOUT THE SHIFT. VSS. ALL DUE MEDS GIVEN. ALL NEEDS ATTENDED TO. KEPT PT CLEAN AND DRY. ALL SAFETY MEASURES APPLIED. WILL ENDORSE TO AM SHIFT NURSE FOR SALVATORE.
[2022-07-05 06:30] LABS: BASOPHILS # (AUTO) 0.1 K/uL (0.0-0.2); BASOPHILS % (AUTO) 0.5 % (0.0-2.0); EOSINOPHILS % (AUTO) 13.6 % (0.0-6.0); HEMATOCRIT 23 % (33-45); HEMOGLOBIN 7.3 g/dL (11.5-14.8); LYMPHOCYTES # (AUTO) 1.5 K/uL (0.8-4.8); LYMPHOCYTES % (AUTO) 10.6 % (20.0-44.0); MEAN CORPUSCULAR HGB CONC 33 g/dl (31.0-36.0); MEAN CORPUSCULAR VOLUME 91 fL (82-100); MONOCYTES # (AUTO) 1.3 K/uL (0.1-1.30); MONOCYTES % (AUTO) 8.8 % (2.0-12.0); NEUTROPHILS # (AUTO) 9.5 K/uL (1.8-8.9); NEUTROPHILS % (AUTO) 66.5 % (43.0-81.0); PLATELET COUNT (AUTO) 459 K/uL (150-450); RED BLOOD CELL COUNT(AUTO) 2.46 MIL/uL (4.0-5.2); WHITE BLOOD COUNT (AUTO) 14.3 K/uL (4.3-11.0)
--- NOTE | 2022-07-05 07:10 | NUR ---
RN OPENING NOTE PATIENT REMAINS IN BED ON MECHANICAL VENTILATOR, TOLERATING SETTINGS WELL. PATIENT NONVERBAL BUT CAN OPEN HER EYES. ATTACHED TO EXTERNAL CARD ROOM MANAGER READING NORMAL SINUS RHYTHM. FEMORAL HEMODIALYSIS CATHETER NOTED. SKIN ALTERATIONS DOCUMENTED IN PHYSICAL CHART. IV ACCESS ON RIGHT UPPER ARM MIDLINE PATENT AND FLUSHING WITH NO RESISTANCE. SAFETY MEASURES IMPLEMENTED, BED IN LOWEST LOCKED POSITION, SIDE RAILS UP TIMES TWO, CALL LIGHT WITHIN REACH. WILL CONTINUE PLAN OF CARE AND ANTICIPATE NEEDS.
[2022-07-05 08:00] VITALS: BP 132/53
[2022-07-05] MEDS: DOCUSATE SODIUM LIQ 100 MG/10 ML UDC NG SCH (08:05)
[2022-07-05] MEDS: VIT B CMPLX 3/FA/VIT C/BIOTIN 1 TAB TABLET GT SCH (08:05)
[2022-07-05] MEDS: ASPIRIN 81 MG TAB.CHEW GT SCH (08:05)
[2022-07-05] MEDS: SEVELAMER CARBONATE 800 MG POWD.PACK GT SCH ×3 (08:05→17:19)
[2022-07-05] MEDS: PANTOPRAZOLE 40 MG/PACK PACK GT SCH (08:05)
[2022-07-05] MEDS: CARVEDILOL 3.125 MG TABLET GT SCH ×2 (08:06→21:05)
[2022-07-05] MEDS: D5W IV SCH (08:08)
[2022-07-05] MEDS: CEFTAROLINE FOSAMIL ACETATE IV SCH (08:08)
[2022-07-05] MEDS: THERAHONEY GEL 1.5 OZ TUBE TP SCH (09:14)
[2022-07-05] MEDS: DAPTOMYCIN 500 MG in IV NS 0.9% 50 ML IV SCH (11:04)
[2022-07-05 12:00] VITALS: BP 130/62
[2022-07-05] MEDS: MEROPENEM 500 MG in IV NS 0.9% 100 ML IV SCH (12:20)
[2022-07-05] MEDS: NEPRO 1,000 ML BOTTLE GT PRN (12:28)
[2022-07-05 13:44] LABS: EOSINOPHILS % (MANUAL) 14 % (0-4); LYMPHOCYTES % (MANUAL) 13 % (16-48); METAMYELOCYTES % 1 % (0-0); MONOCYTES % (MANUAL) 2 % (0-11.0); NEUTROPHILS % (MANUAL) 70 (42-76)
[2022-07-05 16:00] VITALS: BP 138/57
--- NOTE | 2022-07-05 18:58 | NUR ---
RN CLOSING NOTE PATIENT REMAINS IN BED ON MECHANICAL VENTILATOR, TOLERATING SETTINGS WELL. PATIENT NONVERBAL BUT CAN OPEN HER EYES. ATTACHED TO EXTERNAL LOOM FIXER SUPERVISOR READING NORMAL SINUS RHYTHM. FEMORAL HEMODIALYSIS CATHETER NOTED, CURRENTLY RUNNING ANTIBIOTIC ORDERED. SKIN ALTERATIONS DOCUMENTED IN PHYSICAL CHART, WOUND CARE RENDERED. SAFETY MEASURES IMPLEMENTED, BED IN LOWEST LOCKED POSITION, SIDE RAILS UP TIMES TWO, CALL LIGHT WITHIN REACH. WILL ENDORSE TO ONCOMING NIGHTSHIFT RN FOR CONTINUATION OF CARE.
[2022-07-05 21:00] VITALS: BP 184/81
[2022-07-05] MEDS: OLANZAPINE 2.5 MG TABLET GT SCH (21:05)
[2022-07-05] MEDS: ACETAMINOPHEN 325 MG TABLET PO PRN (21:08)
--- NOTE | 2022-07-05 21:12 | NUR ---
ELEVATED SBP; SPIKED TEMP BP 184/81 Pulse 128. Temp 101.0 PRN Hydralazine given. Cooling measure provided, PRN Tylenol given. Will reassess.
[2022-07-05] MEDS: INSULIN GLARGINE, 100 UNIT/ML CARTRIDGE SQ SCH (23:30)
--- NOTE | 2022-07-05 23:34 | NUR ---
ACCU CHECK Bld glucose 161mg/dl. Given 3 unit insulin per SS parameter, co signed by JOHN Dooley. Patient on Lantus insulin HS scheduled dose.
[2022-07-06 00:46] VITALS: BP 90/45
--- NOTE | 2022-07-06 06:11 | NUR ---
END OF SHIFT REPORT Patient is nonverbal. On Mechanical vent, settings remains the same. Sinus rhythm in the Tele monitor HR 84. On IV abx. Temp curved down now 99.4F, Temp max 101.0 Tolerating Tube feeding at 45ml/hr. Had BM during the shift, incontinent care. Dressing changed to sacral wound. Left heel scar/redness, excoriation on left groin and abd folds, wound consult. Dialysis treatment today. Plan for Permacath placement. Will endorse to oncoming RN.
[2022-07-06] MEDS: INSULIN REGULAR, HUMAN 100 UNIT/ML 3 ML VIAL SQ PRN ×3 (06:25→23:13)
[2022-07-06] MEDS: BLOOD SUGAR DIAGNOSTIC 1 EACH STRIP IN SCH ×4 (06:26→23:14)
--- NOTE | 2022-07-06 06:26 | NUR ---
ACCU CHECK Bld glucose 164mg/dl. Given 3 units insulin per SS parameters, co signed by JOHN Ansari.
[2022-07-06 06:54] VITALS: BP 104/52
[2022-07-06 08:00] VITALS: BP 110/42
[2022-07-06] MEDS: VIT B CMPLX 3/FA/VIT C/BIOTIN 1 TAB TABLET GT SCH (08:01)
[2022-07-06] MEDS: ASPIRIN 81 MG TAB.CHEW GT SCH (08:01)
[2022-07-06] MEDS: DOCUSATE SODIUM LIQ 100 MG/10 ML UDC NG SCH (08:01)
[2022-07-06] MEDS: PANTOPRAZOLE 40 MG/PACK PACK GT SCH (08:01)
[2022-07-06] MEDS: SEVELAMER CARBONATE 800 MG POWD.PACK GT SCH ×3 (08:01→17:40)
[2022-07-06] MEDS: LEVOTHYROXINE SODIUM 88 MCG TABLET GT SCH (08:02)
[2022-07-06] MEDS: CARVEDILOL 3.125 MG TABLET GT SCH ×2 (08:02→20:50)
[2022-07-06] MEDS: THERAHONEY GEL 1.5 OZ TUBE TP SCH (08:02)
--- NOTE | 2022-07-06 08:02 | NUR ---
RN NOTE PT SCHEDULED FOR HD TODAY. CARVEDILOL HELD.
--- NOTE | 2022-07-06 08:51 | NUR ---
WOUND CARE CONSULT: RECEIVED CONSULT FOR LEFT HEEL AND LEFT ABDOMINAL/GROIN FOLD. LEFT HEEL PRESENTS WITH DRY SCAB/CALLUS. NO ERYTHEMA, DRAINAGE OR TENDERNESS NOTED. DEFER TO SURGICAL AND PODIATRY TEAMS. DR WATKINS AND DR INGRAM NOTIFIED. DISCUSSED SKIN PROTECTION WITH NURSING STAFF. MD IN AGREEMENT WITH PLAN OF CARE.
[2022-07-06 12:00] VITALS: BP 110/44
[2022-07-06] MEDS: MEROPENEM 500 MG in IV NS 0.9% 100 ML IV SCH (13:59)
[2022-07-06 16:00] VITALS: BP 118/42
[2022-07-06] MEDS: NYSTATIN TOP POWDER 15 GM BOTTLE TP SCH (17:40)
[2022-07-06] MEDS: NEPRO 1,000 ML BOTTLE GT PRN (17:57)
[2022-07-06 20:00] VITALS: BP 125/50
--- NOTE | 2022-07-06 20:00 | NUR ---
LEAD MAN OVER ALL DIES IN PATTERN SHOP OPENING NOTES: RECEIVED PATIENT AWAKE IN BED COMFORTABLY NON VERBAL REMAIN ON VENT DEPENDENT VENT SETTING WELL TOLERATED ,NO SOB NO DISTRESS NOTED NO FACIAL GRIMACING NOTED . BED IN LOW POSITION CALL LIGHTS WITHIN REACH, NO COMPLAIN OF PAIN AND DISCOMFORT AT THIS TIME, HOB ELEVATED AT ALL TIMES FOR ASPIRATION PRECAUTION. ON HD CATH AT LEFT FEMORAL HD DONE TODAY WITH 2L OUT, ON TELE MONITOR SR 86, ON GT NEPHRO 1.8 AT 45CC/HR PATENT WITH NO RESIDUAL NOTED.PTS IS ON RIGHT SOFT WRIST RESTRAINT, PATIENT KEPT CLEAN AND DRY ALL NEEDS MET WILL CONTINUE TO MONITOR PTS .V/S STABLE FEBRILE TEMP 99.5 COOLING MEASURES APPLIED.WILL CONTINUE TO MONITOR PTS.
[2022-07-06] MEDS: ACETAMINOPHEN 325 MG TABLET PO PRN (20:50)
[2022-07-06] MEDS: OLANZAPINE 2.5 MG TABLET GT SCH (21:26)
[2022-07-06] MEDS: INSULIN GLARGINE, 100 UNIT/ML CARTRIDGE SQ SCH (23:11)
--- NOTE | 2022-07-06 23:17 | NUR ---
TEL RN NOTES BLOOD SUGAR AT 11PM IS 139MG/DL 2 UNITS OF REGULAR INSULIN GIVEN PER SLIDING SCALE AND 15 UNITS OF LANTUS GIVEN ORDERED .PTSON GT FEEDING NEPHRO AT 45CC/HR WILL CHECK BLOOD SUGAR AGAIN IN 6AM.
[2022-07-07] VITALS: BP 114/69
[2022-07-07 04:00] VITALS: BP 142/44
[2022-07-07] MEDS: BLOOD SUGAR DIAGNOSTIC 1 EACH STRIP IN SCH ×4 (06:25→23:47)
[2022-07-07] MEDS: LEVOTHYROXINE SODIUM 88 MCG TABLET GT SCH (06:25)
[2022-07-07] MEDS: INSULIN REGULAR, HUMAN 100 UNIT/ML 3 ML VIAL SQ PRN (06:27)
--- NOTE | 2022-07-07 06:30 | NUR ---
babatunde rn notes blood sugar at 6am is 123mg/dl no coverage given per sliding scale.
[2022-07-07 06:49] LABS: BASOPHILS # (AUTO) 0.1 K/uL (0.0-0.2); HEMATOCRIT 22 % (33-45); HEMOGLOBIN 7.2 g/dL (11.5-14.8); LYMPHOCYTES # (AUTO) 1.9 K/uL (0.8-4.8); LYMPHOCYTES % (AUTO) 13.2 % (20.0-44.0); MEAN CORPUSCULAR HGB CONC 33 g/dl (31.0-36.0); MEAN CORPUSCULAR VOLUME 91 fL (82-100); MONOCYTES # (AUTO) 1.4 K/uL (0.1-1.30); MONOCYTES % (AUTO) 9.8 % (2.0-12.0); NEUTROPHILS # (AUTO) 8.7 K/uL (1.8-8.9); PLATELET COUNT (AUTO) 452 K/uL (150-450); RED BLOOD CELL COUNT(AUTO) 2.42 MIL/uL (4.0-5.2); WHITE BLOOD COUNT (AUTO) 14.3 K/uL (4.3-11.0)
[2022-07-07 07:07] LABS: CALCIUM, SERUM 9.2 mg/dL (8.5-10.1); CARBON DIOXIDE 29 mmol/L (21-32); CHLORIDE 94 mmol/L (98-107); CREATININE 3.3 mg/dL (0.6-1.3); GLUCOSE 132 mg/dL (74-106); MAGNESIUM 2.5 mg/dL (1.8-2.4); PHOSPHORUS 2.3 mg/dL (2.5-4.9); POTASSIUM 4.4 mmol/L (3.5-5.1); SODIUM SERUM 130 mmol/L (136-145); UREA NITROGEN, BLOOD 43 mg/dL (7-18)
--- NOTE | 2022-07-07 07:11 | NUR ---
wireless telegrapher notes Pts remains in bed comfortable afebrile. vent setting well tolerated . will endorse to rn day shift for continuity of care.
--- NOTE | 2022-07-07 07:23 | NUR ---
RN OPENING NOTE PATIENT REPORT RECEIVED FROM NIGHTSHIFT RN. PATIENT REMAINS IN BED, ON MECHANICAL VENTILATOR TOLERATING SETTINGS WELL, CURRENT OXYGEN SATURATION AT 99%. PATIENT IS ON VERBAL BUT OPENS HER EYES IN RESPONSE TO VOICE. ATTACHED TO EXTERNAL CHURCH SUPERVISOR READING SINUS RHYTHM. RIGHT WRIST RESTRAINT NOTED. GASTRIC TUBE ATTACHED CURRENTLY RUNNING NEPRO AT 45 MLS/HR, TOLERATING WELL EVIDENCED BY LOW RESIDUAL. LEFT FEMORAL ACCESS NOTED PATENT AND FLUSHING WITH NO RESISTANCE. SAFETY MEASURES IMPLEMENTED, BED IN LOWEST LOCKED POSITION, SIDE RAILS UP TIMES 2, CALL LIGHT WITHIN REACH. WILL CONTINUE PLAN OF CARE AND ANTICIPATE NEEDS.
[2022-07-07 08:00] VITALS: BP 161/74
[2022-07-07] MEDS: PANTOPRAZOLE 40 MG/PACK PACK GT SCH (08:12)
[2022-07-07] MEDS: DOCUSATE SODIUM LIQ 100 MG/10 ML UDC NG SCH (08:12)
[2022-07-07] MEDS: ASPIRIN 81 MG TAB.CHEW GT SCH (08:12)
[2022-07-07] MEDS: SEVELAMER CARBONATE 800 MG POWD.PACK GT SCH ×3 (08:12→17:37)
[2022-07-07] MEDS: VIT B CMPLX 3/FA/VIT C/BIOTIN 1 TAB TABLET GT SCH (08:12)
[2022-07-07] MEDS: NYSTATIN TOP POWDER 15 GM BOTTLE TP SCH ×2 (08:13→16:26)
[2022-07-07] MEDS: CARVEDILOL 3.125 MG TABLET GT SCH ×2 (08:13→21:55)
[2022-07-07] MEDS: THERAHONEY GEL 1.5 OZ TUBE TP SCH (08:13)
[2022-07-07] MEDS: DAPTOMYCIN 500 MG in IV NS 0.9% 50 ML IV SCH (11:14)
[2022-07-07 12:00] VITALS: BP 131/52
[2022-07-07] MEDS: MEROPENEM 500 MG in IV NS 0.9% 100 ML IV SCH (12:11)
[2022-07-07] MEDS ORDERED: Sodium Phosphate 15 MMOL in IV NS 0.9% 245 ML IV SCH ×2 (12:30→16:30)
[2022-07-07 16:00] VITALS: BP 130/53
--- NOTE | 2022-07-07 18:50 | NUR ---
RN CLOSING NOTE PATIENT REMAINS IN BED, ON MECHANICAL VENTILATOR TOLERATING SETTINGS WELL, CURRENT OXYGEN SATURATION AT 99%. PATIENT IS ON VERBAL BUT OPENS HER EYES IN RESPONSE TO VOICE. ATTACHED TO EXTERNAL SEWER DIGGER READING SINUS RHYTHM. BILATERAL WRIST RESTRAINTS NOTED. GASTRIC TUBE ATTACHED CURRENTLY RUNNING NEPRO AT 45 MLS/HR, TOLERATING WELL EVIDENCED BY LOW RESIDUAL. LEFT FEMORAL ACCESS NOTED PATENT AND FLUSHING WITH NO RESISTANCE. SAFETY MEASURES IMPLEMENTED, BED IN LOWEST LOCKED POSITION, SIDE RAILS UP TIMES 2, CALL LIGHT WITHIN REACH. ALL DUE MEDICATIONS ADMINISTERED, PATIENT KEPT CLEAN AND DRY THROUGHOUT SHIFT. WILL ENDORSE TO NIGHTSHIFT RN FOR CONTINUATION OF CARE.
--- NOTE | 2022-07-07 19:20 | NUR ---
RN NOTE RECEIVED PATIENT IN BED, AO X 1, IN NO ACUTE DISTRESS, ON TRACH TO MECHANICAL VENT WITH SETTINGS PRESCRIBED, SATURATION AT 100%, SR ON THE MONITOR, HR IS 79. L FEMORAL HD CATH INTACT. B SOFT WRIST RESTRAINTS IN PLACE, SKIN AND CIRCULATION WAS CHECKED AND ARE WNL. CHAHAL CATHETER DRAINING TO A CLEAR, YELLOW OUTPUT. SAFETY MEASURES IN PLACE, BED IS LOCKED AND IN LOWEST POSITION, CALL LIGHT WITHIN REACH OF PATIENT. WILL CONTINUE TO MONITOR AND REASSESS FOR CHANGES.
[2022-07-07 20:00] VITALS: BP 152/63
[2022-07-07] MEDS: OLANZAPINE 2.5 MG TABLET GT SCH (21:55)
[2022-07-07] MEDS: INSULIN GLARGINE, 100 UNIT/ML CARTRIDGE SQ SCH (23:51)
[2022-07-08] VITALS: BP 114/80
[2022-07-08] MEDS: BLOOD SUGAR DIAGNOSTIC 1 EACH STRIP IN SCH ×3 (05:31→17:20)
[2022-07-08 05:54] VITALS: BP 137/72
[2022-07-08] MEDS: LEVOTHYROXINE SODIUM 88 MCG TABLET GT SCH (06:04)
[2022-07-08 06:35] LABS: RED BLOOD CELL COUNT(AUTO) 2.31 MIL/uL (4.0-5.2); WHITE BLOOD COUNT (AUTO) 17.4 K/uL (4.3-11.0)
[2022-07-08 06:36] LABS: BASOPHILS # (AUTO) 0.1 K/uL (0.0-0.2); BASOPHILS % (AUTO) 0.6 % (0.0-2.0); EOSINOPHILS % (AUTO) 12.5 % (0.0-6.0); HEMATOCRIT 22 % (33-45); LYMPHOCYTES # (AUTO) 1.6 K/uL (0.8-4.8); LYMPHOCYTES % (AUTO) 9.3 % (20.0-44.0); MEAN CORPUSCULAR HGB CONC 33 g/dl (31.0-36.0); MEAN CORPUSCULAR VOLUME 93 fL (82-100); MONOCYTES # (AUTO) 1.1 K/uL (0.1-1.30); MONOCYTES % (AUTO) 6.5 % (2.0-12.0); NEUTROPHILS # (AUTO) 12.4 K/uL (1.8-8.9); NEUTROPHILS % (AUTO) 71.1 % (43.0-81.0); PLATELET COUNT (AUTO) 491 K/uL (150-450)
[2022-07-08 07:02] LABS: CALCIUM, SERUM 9.7 mg/dL (8.5-10.1); CARBON DIOXIDE 27 mmol/L (21-32); CHLORIDE 93 mmol/L (98-107); CREATININE 4.1 mg/dL (0.6-1.3); GLUCOSE 128 mg/dL (74-106); MAGNESIUM 2.5 mg/dL (1.8-2.4); PHOSPHORUS 4.2 mg/dL (2.5-4.9); POTASSIUM 4.8 mmol/L (3.5-5.1); SODIUM SERUM 131 mmol/L (136-145); UREA NITROGEN, BLOOD 59 mg/dL (7-18)
--- NOTE | 2022-07-08 07:22 | NUR ---
RN OPENING NOTE RECEIVED PATIENT IN BED, AO X 1, IN NO ACUTE DISTRESS, ON TRACH TO MECHANICAL VENT WITH SETTINGS PRESCRIBED, SATURATION AT 100%, SR ON THE MONITOR, HR IS 79. LEFT FEMORAL HD CATH INTACT. BILATERAL SOFT WRIST RESTRAINTS IN PLACE, SKIN AND CIRCULATION WAS CHECKED AND ARE WITHIN NORMAL LIMITS. SAFETY MEASURES IN PLACE, BED IS LOCKED AND IN LOWEST POSITION, CALL LIGHT WITHIN REACH OF PATIENT. WILL CONTINUE PLAN OF CARE AND ANTICIPATE NEEDS.
[2022-07-08 08:00] VITALS: BP 158/63
[2022-07-08] MEDS: VIT B CMPLX 3/FA/VIT C/BIOTIN 1 TAB TABLET GT SCH (09:09)
[2022-07-08] MEDS: PANTOPRAZOLE 40 MG/PACK PACK GT SCH (09:09)
[2022-07-08] MEDS: ASPIRIN 81 MG TAB.CHEW GT SCH (09:09)
[2022-07-08] MEDS: DOCUSATE SODIUM LIQ 100 MG/10 ML UDC NG SCH (09:09)
[2022-07-08] MEDS: SEVELAMER CARBONATE 800 MG POWD.PACK GT SCH ×3 (09:09→17:21)
[2022-07-08] MEDS: CARVEDILOL 3.125 MG TABLET GT SCH ×2 (09:09→21:30)
[2022-07-08] MEDS: THERAHONEY GEL 1.5 OZ TUBE TP SCH (09:10)
[2022-07-08] MEDS: NYSTATIN TOP POWDER 15 GM BOTTLE TP SCH ×2 (09:10→17:20)
[2022-07-08] MEDS: NEPRO 1,000 ML BOTTLE GT PRN (10:10)
[2022-07-08 12:00] VITALS: BP 145/59
[2022-07-08] MEDS: MEROPENEM 500 MG in IV NS 0.9% 100 ML IV SCH (12:04)
--- NOTE | 2022-07-08 15:26 | NUR ---
HEARING OFFICER NOTE SPOKE WITH DR ALLRED VASCULAR DOCTOR WILL DO PERMANENT HD CATH PLACEMENT AND TEMPORALLY HD CATH WILL BE REMOVED WITH PIG TAIL IN PLACE TOMORROW, OK TO PLACE MID LINE
[2022-07-08 16:00] VITALS: BP 134/52
--- NOTE | 2022-07-08 18:56 | NUR ---
RN CLOSING NOTE PATIENT IN BED, AO X 1, IN NO ACUTE DISTRESS, ON TRACH TO MECHANICAL VENT WITH SETTINGS PRESCRIBED, SATURATION AT 100%, SR ON THE MONITOR, HR IS 87. LEFT FEMORAL HD CATH INTACT. BILATERAL SOFT WRIST RESTRAINTS IN PLACE, SKIN AND CIRCULATION WAS CHECKED AND ARE WITHIN NORMAL LIMITS. SAFETY MEASURES IN PLACE, BED IS LOCKED AND IN LOWEST POSITION, CALL LIGHT WITHIN REACH OF PATIENT. WILL ENDORSE TO NIGHTSHIFT RN FOR CONTINUATION OF CARE.
--- NOTE | 2022-07-08 19:51 | NUR ---
RT NOTE PT RECEIVED TRACHED ON MECHANICAL VENTILATION. TRACH HAS NO CUFF. RN AWARE. WILL FOLLOW UP INSERTING NEW TRACH TUBE. PT HAS ADEQUATE VOLUMES, NO RESPIRATORY DISTRESS NOTED AT THIS TIME. SUCTION DONE, SMALL THICK SECRETIONS NOTED. WILL CONTINUE TO MONITOR.
[2022-07-08 20:00] VITALS: BP 160/63
--- NOTE | 2022-07-08 20:00 | NUR ---
RN NOTE RECEIVED PT SLEEPING, AROUSES TO VERBAL AND TOUCH STIMULI. WITH TRACH CONNECTED TO VENT, WITH NO CUFF. RT AWARE. PAGED DR HERNANDEZ FOR REPLACEMENT, AWAITING FOR RESPOND. NO S/SX OF DISTRESS. O2 SAT AT 100%. PT GT PATENT AND INPLACE, ON TUBE FEEDING WITH NO RESIDUALS NOTED. HOB ELEVATED. WILL CONTINUE TO MONITOR.
--- NOTE | 2022-07-08 20:45 | NUR ---
RN NOTE JASE MIDLINE INSERTED BY ENDY CAAL. NO BLEEDING NOTED. FLUSHES WELL.
--- NOTE | 2022-07-08 20:50 | NUR ---
RT NOTE REPLACED TRACH WITH PORTEX 8 CUFFLESS TO PORTEX 8 CUFFED. CUFF INFLATED. PT RECEIVING ADEQUATE VOLUMES. NO BLEEDING NOTED. SUCTION DONE, TRACH SECURED AND PATENT. JOHN MELENDEZ AWARE. WILL CONTINUE TO MONITOR.
--- NOTE | 2022-07-08 20:51 | NUR ---
RN NOTE DR HERNANDEZ RESPONDED REGARDING TRACH, WITH ORDER TO REPLACE. RT MADE MADE AWARE.
[2022-07-08] MEDS: OLANZAPINE 2.5 MG TABLET GT SCH (21:30)
[2022-07-08] MEDS: INSULIN GLARGINE, 100 UNIT/ML CARTRIDGE SQ SCH (21:43)
[2022-07-09] VITALS: BP 139/68
[2022-07-09] MEDS: INSULIN REGULAR, HUMAN 100 UNIT/ML 3 ML VIAL SQ PRN (00:08)
[2022-07-09] MEDS: BLOOD SUGAR DIAGNOSTIC 1 EACH STRIP IN SCH ×4 (00:08→18:17)
[2022-07-09 04:00] VITALS: BP 123/66
[2022-07-09 05:57] LABS: BASOPHILS # (AUTO) 0.1 K/uL (0.0-0.2); BASOPHILS % (AUTO) 0.6 % (0.0-2.0); EOSINOPHILS % (AUTO) 14.1 % (0.0-6.0); HEMATOCRIT 21 % (33-45); HEMOGLOBIN 7.1 g/dL (11.5-14.8); LYMPHOCYTES # (AUTO) 1.9 K/uL (0.8-4.8); LYMPHOCYTES % (AUTO) 11.4 % (20.0-44.0); MEAN CORPUSCULAR HGB CONC 34 g/dl (31.0-36.0); MEAN CORPUSCULAR VOLUME 91 fL (82-100); MONOCYTES % (AUTO) 5.8 % (2.0-12.0); NEUTROPHILS # (AUTO) 11.4 K/uL (1.8-8.9); NEUTROPHILS % (AUTO) 68.1 % (43.0-81.0); PLATELET COUNT (AUTO) 500 K/uL (150-450); RED BLOOD CELL COUNT(AUTO) 2.32 MIL/uL (4.0-5.2); WHITE BLOOD COUNT (AUTO) 16.8 K/uL (4.3-11.0)
[2022-07-09] MEDS: LEVOTHYROXINE SODIUM 88 MCG TABLET GT SCH (06:01)
[2022-07-09 06:44] LABS: CALCIUM, SERUM 9.6 mg/dL (8.5-10.1); CARBON DIOXIDE 30 mmol/L (21-32); CHLORIDE 93 mmol/L (98-107); CREATININE 5.2 mg/dL (0.6-1.3); GLUCOSE 131 mg/dL (74-106); MAGNESIUM 2.5 mg/dL (1.8-2.4); POTASSIUM 4.7 mmol/L (3.5-5.1); SODIUM SERUM 131 mmol/L (136-145); UREA NITROGEN, BLOOD 74 mg/dL (7-18)
--- NOTE | 2022-07-09 06:52 | NUR ---
RN NOTE PT TOLERATING VENT SETTINGS WITH CUFF ON. NOT IN ANY DISTRESS. O2 SAT AT 100%. PT RESPONDS TO STIMULI, NONVERBAL. PT SCHEDULED FOR PERMACATH PLACEMENT AT 1999. GT FEEDING HELD AT 0600. FSBS 119, NO INSULIN COVERAGE GIVEN. WITH RIGHT WRIST SOFT RESTRAINTS, GOOD CIRCULATION. NO NEW SKIN BREAKDOWN NOTED. TURNED AND REPOSITIONED. REMAIN AFEBRILE. WILL ENDORSE TO NEXT SHIFT NURSE FOR SALVATORE.
--- NOTE | 2022-07-09 07:30 | NUR ---
telephone surveyor opening note Patient is alert and oriented x1-2. patient is nonverbal. patient is on tele monitor currently sinus rhytm and sinus tachycardia. patient is on ventilator with ordered settings. tolerating well at 100%. Patient is NPO due to permacathether placement later on in the day. patient has gtube. patent. patient has right wrist restraints. will release circulation every 2 hours. patient has right upper arm midline. iv patent and flushing well. patient has left femoral hd cath access. all safety measures in place. call light with reach. bed locked in lowest position. side rails x2. will assess throughout shift
[2022-07-09 08:00] VITALS: BP 163/53
[2022-07-09] MEDS: SEVELAMER CARBONATE 800 MG POWD.PACK GT SCH ×3 (08:00→18:20)
[2022-07-09] MEDS: DOCUSATE SODIUM LIQ 100 MG/10 ML UDC NG SCH (09:00)
[2022-07-09] MEDS: PANTOPRAZOLE 40 MG/PACK PACK GT SCH (09:00)
[2022-07-09] MEDS: CARVEDILOL 3.125 MG TABLET GT SCH ×2 (09:00→20:41)
[2022-07-09] MEDS: ASPIRIN 81 MG TAB.CHEW GT SCH (09:00)
[2022-07-09] MEDS: VIT B CMPLX 3/FA/VIT C/BIOTIN 1 TAB TABLET GT SCH (09:00)
[2022-07-09] MEDS ORDERED: ANESTHESIA TRAY IN PYXIS 1 EA TRAY MC ONE ×2 (09:14→19:12)
--- NOTE | 2022-07-09 09:39 | NUR ---
hold morning medications due to surgery and patient is currently getting dialysis
[2022-07-09] MEDS: NYSTATIN TOP POWDER 15 GM BOTTLE TP SCH ×2 (10:06→17:46)
[2022-07-09] MEDS: THERAHONEY GEL 1.5 OZ TUBE TP SCH (10:06)
--- NOTE | 2022-07-09 11:00 | NUR ---
patient had dialysis today took out 1200. bp 155/72, hr 127
[2022-07-09 12:00] VITALS: BP 148/63
[2022-07-09] MEDS: DAPTOMYCIN 500 MG in IV NS 0.9% 50 ML IV SCH (12:40)
[2022-07-09] MEDS: MEROPENEM 500 MG in IV NS 0.9% 100 ML IV SCH (13:32)
[2022-07-09] MEDS ORDERED: HEPARIN SODIUM, PORCINE 1,000 UNIT/ML VIAL ONE (14:41)
[2022-07-09] MEDS ORDERED: IOHEXOL 50 ML IV ONE (14:41)
[2022-07-09] MEDS ORDERED: LIDOCAINE 1% INJ 50 ML MDV IJ ONE (14:42)
--- NOTE | 2022-07-09 15:59 | NUR ---
patient left for surgery.
[2022-07-09 17:20] VITALS: BP_SYST 135; BP_SYST 139; BP_DIAS 60; BP_DIAS 80
--- NOTE | 2022-07-09 17:20 | NUR ---
patient done with recovery. patient vital signs bp 139/60, hr 89, 02 99, temp 96.3 patient able to resume orders and current diet
[2022-07-09] MEDS: NEPRO 1,000 ML BOTTLE GT PRN (19:18)
--- NOTE | 2022-07-09 19:30 | NUR ---
telecommunications field engineer closing note Patient is alert and oriented x1-2. patient is nonverbal. patient is on tele monitor currently sinus rhytm and sinus tachycardia. patient is on ventilator with ordered settings, tolerating well at 100%. Patient has resumed tube feeding. patient has gtube. gtube patent. patient has right wrist restraints. patient pulled out trach tube. reconnected patient to trach tube. released restraints every 2 hours. no skin or circulation issues at this time. patient has right upper arm midline. patient had permacathether placement. patient has new left internal jugular access. iv patent and flushing well. patient has left femoral hd cath access. dialysis nurse to remove left hd access.all safety measures in place. call light with reach. bed locked in lowest position. side rails x2. will endorse to warehouse supervisor 3rd shift rn
[2022-07-09 20:00] VITALS: BP 155/64
--- NOTE | 2022-07-09 20:02 | NUR ---
RN NOTE RECEIVED PT AWAKE, RESPONDS TO VERBAL AND TOUCH STIMULI, NONVERBAL. WITH TRACH CONNECTED TO VENT, NO S/SX OF DISTRESS. O2 SAT AT 100%. S/P HD CATH PLACEMENT ON LEFT CHEST WALL, INTACT, NO BLEEDING NOTED. PT GT PATENT AND INPLACE, ON TUBE FEEDING OF NEPRO AT 45ML./HR. WITH NO RESIDUALS NOTED. HOB ELEVATED. PT WITH RIGHT WRIST RESTRAINTS, WITH EPISODES OF PULLING OUT TUBING. ALL SAFETY MEASURES IN PLACE. WILL CONTINUE TO MONITOR.
[2022-07-09] MEDS: OLANZAPINE 2.5 MG TABLET GT SCH (22:35)
[2022-07-09] MEDS: INSULIN GLARGINE, 100 UNIT/ML CARTRIDGE SQ SCH (22:56)
[2022-07-10] VITALS: BP 140/44
[2022-07-10] MEDS: BLOOD SUGAR DIAGNOSTIC 1 EACH STRIP IN SCH ×4 (00:07→17:20)
[2022-07-10 04:00] VITALS: BP 147/41
[2022-07-10] MEDS: LEVOTHYROXINE SODIUM 88 MCG TABLET GT SCH (06:04)
--- NOTE | 2022-07-10 06:58 | NUR ---
RN NOTE PT AWAKE. TOLERATING VENT SETTINGS. NOT IN ANY DISTRESS. O2 SAT AT 100%. TOLERATES TUBE FEEDING, NO RESIDUALS NOTED. KEPT HOB ELEVATED. FSBS 122 NO INSULIN COVERAGE GIVEN. PT FOR DIALYSIS TODAY. WOUND TX DONE ORDERED. TURNED AND REPOSITIONED. ENDORSED TO GRIS FOR SALVATORE.
--- NOTE | 2022-07-10 07:29 | NUR ---
RN OPENING NOTE RECEIVED PT AWAKE, RESPONDS TO VERBAL AND TOUCH STIMULI, NONVERBAL. WITH TRACH CONNECTED TO VENT, NO S/SX OF DISTRESS. O2 SAT AT 100%. S/P HD CATH PLACEMENT ON LEFT CHEST WALL, INTACT, NO BLEEDING NOTED. PT GT PATENT AND INPLACE, ON TUBE FEEDING OF NEPRO AT 45ML./HR. HOB ELEVATED. PT WITH RIGHT WRIST RESTRAINTS, WITH EPISODES OF PULLING OUT TUBING. ALL SAFETY MEASURES IN PLACE.
[2022-07-10 08:00] VITALS: BP 136/61
[2022-07-10] MEDS: ASPIRIN 81 MG TAB.CHEW GT SCH (08:45)
[2022-07-10] MEDS: DOCUSATE SODIUM LIQ 100 MG/10 ML UDC NG SCH (08:46)
[2022-07-10] MEDS: THERAHONEY GEL 1.5 OZ TUBE TP SCH (08:46)
[2022-07-10] MEDS: SEVELAMER CARBONATE 800 MG POWD.PACK GT SCH ×3 (08:46→17:20)
[2022-07-10] MEDS: CARVEDILOL 3.125 MG TABLET GT SCH ×2 (08:46→21:03)
[2022-07-10] MEDS: PANTOPRAZOLE 40 MG/PACK PACK GT SCH (08:46)
[2022-07-10] MEDS: VIT B CMPLX 3/FA/VIT C/BIOTIN 1 TAB TABLET GT SCH (08:46)
[2022-07-10] MEDS: NYSTATIN TOP POWDER 15 GM BOTTLE TP SCH ×2 (08:47→17:22)
[2022-07-10 12:00] VITALS: BP 132/60
[2022-07-10] MEDS: INSULIN REGULAR, HUMAN 100 UNIT/ML 3 ML VIAL SQ PRN ×2 (12:08→17:21)
[2022-07-10 16:00] VITALS: BP 119/58
[2022-07-10] MEDS: NEPRO 1,000 ML BOTTLE GT PRN (17:20)
[2022-07-10 20:00] VITALS: BP 126/52
--- NOTE | 2022-07-10 20:00 | NUR ---
RN NOTE RECEIVED PT AWAKE, RESPONDS BY SMILING, NONVERBAL. WITH TRACH CONNECTED TO VENT, NO S/SX OF DISTRESS. O2 SAT AT 100%. HD CATH ON LEFT CHEST WALL, INTACT, NO BLEEDING NOTED. L FEMORAL S/P HD CATH REMOVAL IN MORNING, DRESSING INTACT WITH NO BLEEDING NOTED. PT GT PATENT AND INPLACE, ON TUBE FEEDING OF NEPRO AT 45ML./HR. WITH NO RESIDUALS NOTED. HOB ELEVATED. PT WITH RIGHT WRIST RESTRAINTS, GOOD CIRCULATION. ALL SAFETY MEASURES IN PLACE. WILL CONTINUE TO MONITOR.
[2022-07-10] MEDS: OLANZAPINE 2.5 MG TABLET GT SCH (21:03)
[2022-07-10] MEDS: INSULIN GLARGINE, 100 UNIT/ML CARTRIDGE SQ SCH (22:12)
[2022-07-11] VITALS: BP 150/70
[2022-07-11] MEDS: BLOOD SUGAR DIAGNOSTIC 1 EACH STRIP IN SCH ×5 (00:32→23:38)
[2022-07-11 04:00] VITALS: BP 149/68
[2022-07-11] MEDS: LEVOTHYROXINE SODIUM 88 MCG TABLET GT SCH (06:05)
--- NOTE | 2022-07-11 07:35 | NUR ---
RN NOTE PT TOLERATING VENT SETTINGS. NOT IN ANY DISTRESS. O2 SAT AT 100%. TOLERATES TUBE FEEDING, NO RESIDUALS NOTED. KEPT HOB ELEVATED. FSBS 102 NO INSULIN COVERAGE GIVEN. PT FOR DIALYSIS TODAY. WOUND TX DONE ORDERED. TURNED AND REPOSITIONED. ENDORSED TO KEVIN FOR SALVATORE.
[2022-07-11 08:00] VITALS: BP 117/43
[2022-07-11] MEDS: VIT B CMPLX 3/FA/VIT C/BIOTIN 1 TAB TABLET GT SCH (08:46)
[2022-07-11] MEDS: ASPIRIN 81 MG TAB.CHEW GT SCH (08:46)
[2022-07-11] MEDS: PANTOPRAZOLE 40 MG/PACK PACK GT SCH (08:47)
[2022-07-11] MEDS: DOCUSATE SODIUM LIQ 100 MG/10 ML UDC NG SCH (08:47)
[2022-07-11] MEDS: SEVELAMER CARBONATE 800 MG POWD.PACK GT SCH ×3 (08:47→17:26)
[2022-07-11] MEDS: CARVEDILOL 3.125 MG TABLET GT SCH ×2 (08:47→21:06)
[2022-07-11] MEDS ORDERED: IV D5W 50 ML BAG IV ONE (09:11)
[2022-07-11] MEDS: NYSTATIN TOP POWDER 15 GM BOTTLE TP SCH ×2 (09:30→17:26)
[2022-07-11] MEDS: THERAHONEY GEL 1.5 OZ TUBE TP SCH (09:30)
--- NOTE | 2022-07-11 09:33 | NUR ---
RN NOTE PT RECEIVED RESTING IN BED, RESPONSIVE TO STIMULI. TRACH IN PLACE WITH VENT SETTINGS TOLERATED WELL. CONT IN GT FEEDING NEPRO @45/HR. ASPIRATION PREC MAINTAINED. HOB ELEVATED. PAULA MIDLINE IN PLACE AND PATENT. SAFETY MEASURES FOLLOWED. WILL CONT TO MONITOR.
[2022-07-11] MEDS: ALBUMIN 25% 25 GM in PREMIX 1 EA IV PRN (11:57)
[2022-07-11 12:00] VITALS: BP 126/53
[2022-07-11] MEDS: DAPTOMYCIN 500 MG in IV NS 0.9% 50 ML IV SCH (14:13)
[2022-07-11 16:00] VITALS: BP 134/49
--- NOTE | 2022-07-11 18:58 | NUR ---
RN NOTE PT RESTING IN BED, RESPONSIVE TO STIMULI. TRACH IN PLACE WITH VENT SETTINGS TOLERATED WELL. CONT IN GT FEEDING NEPRO @45/HR. ASPIRATION PREC MAINTAINED. HOB ELEVATED. PAULA MIDLINE IN PLACE AND PATENT. S/P HD WITH 2L FLUIDS REMOVED. AM AND PM CARE DONE. ALL DUE MEDICATIONS GIVEN. SAFETY MEASURES FOLLOWED. WILL CONT TO MONITOR.
--- NOTE | 2022-07-11 19:30 | NUR ---
RN OPENING NOTE RECEIVED PT AWAKE, RESPONDS TO VERBAL AND TOUCH STIMULI, NONVERBAL. WITH TRACH CONNECTED TO VENT P#8 AC 18 TV 400 FIO2 30% PEEP 5, NO S/SX OF DISTRESS. O2 SAT AT 100%. S/P HD CATH PLACEMENT ON LEFT CHEST WALL, INTACT, NO BLEEDING NOTED. PT GT PATENT AND INPLACE, NO RESIDUAL NOTED,ON TUBE FEEDING OF NEPRO AT 45ML./HR. HOB ELEVATED. PT WITH RIGHT WRIST RESTRAINTS, WITH EPISODES OF PULLING OUT TUBING. ALL SAFETY MEASURES IN PLACE.
[2022-07-11 20:00] VITALS: BP 137/66
[2022-07-11] MEDS: NEPRO 1,000 ML BOTTLE GT PRN (20:46)
[2022-07-11] MEDS: OLANZAPINE 2.5 MG TABLET GT SCH (21:07)
[2022-07-11] MEDS: INSULIN GLARGINE, 100 UNIT/ML CARTRIDGE SQ SCH (22:21)
[2022-07-11] MEDS: INSULIN REGULAR, HUMAN 100 UNIT/ML 3 ML VIAL SQ PRN (23:39)
[2022-07-12] VITALS: BP 113/42
--- NOTE | 2022-07-12 07:37 | NUR ---
PUMPING STATION SUPERVISOR OPENING NOTES: RECEIVED PATIENT IN BED, AWAKE, RESPONDS TO VERBAL AND TACTILE STIMULI BUT NONVERBAL. PATIENT FOLLOWS WITH HER EYES. NO SOB NOTED AND NO RESPIRATORY DISTRESS. ON MECHANICAL VENT WITH SETTINGS OF AC 18, TV 400, FI02 30%, PEEP 5. OXYGEN SATURATION OF 100%. ON SR ON TELE MONITOR. HAS IV ACCESS ON RIGHT UPPER MIDLINE, INTACT, FLUSHING WELL, NO S/S ON INFILTRATION. PERMA CATH ON LEFT CHEST WALL, DRESSING IN PLACE, NO BLEEDING NOTED. GT FEEDING OF NEPHRO RUNNING AT 45 ML/HR, NO RESIDUAL NOTED, IN PLACE AND DRESSING DRY AND INTACT. WRIST RESTRAINTS APPLIED PER ORDER, NOTED WITH GOOD HAND CIRCULATION, WILL RELEASE AND EXERCISE PER PROTOCOL. ALL SAFETY MEASURES IN PLACE. HOB ELEVATED. BED LOCKED AND IN LOWEST POSITION. CALL LIGHT WITHIN REACH. WILL CONTINUE TO MONITOR THROUGHOUT SHIFT
[2022-07-12] MEDS: LEVOTHYROXINE SODIUM 88 MCG TABLET GT SCH (07:54)
[2022-07-12 08:00] VITALS: BP 113/42
[2022-07-12] MEDS: SEVELAMER CARBONATE 800 MG POWD.PACK GT SCH ×2 (08:45→13:33)
[2022-07-12 09:17] VITALS: BP 149/48
[2022-07-12] MEDS: CARVEDILOL 3.125 MG TABLET GT SCH (09:17)
[2022-07-12] MEDS: ASPIRIN 81 MG TAB.CHEW GT SCH (09:17)
[2022-07-12] MEDS: DOCUSATE SODIUM LIQ 100 MG/10 ML UDC NG SCH (09:18)
[2022-07-12] MEDS: VIT B CMPLX 3/FA/VIT C/BIOTIN 1 TAB TABLET GT SCH (09:18)
[2022-07-12] MEDS: PANTOPRAZOLE 40 MG/PACK PACK GT SCH (09:18)
[2022-07-12] MEDS: NYSTATIN TOP POWDER 15 GM BOTTLE TP SCH (09:19)
[2022-07-12] MEDS: THERAHONEY GEL 1.5 OZ TUBE TP SCH (09:19)
--- NOTE | 2022-07-12 10:40 | NUR ---
RECEIVED A CALL FROM SHIP BOAT OR BARGE MATE DANIEL KOEHLER [id number] AND WAS INFORMED THAT THE PATIENT WILL BE READY FOR DISCHARGE TODAY @ 2:00 PM TO [facility]. CHARGE NURSE SOON INFORMED AND DISCHARGE ORDERS INITIATED.
--- NOTE | 2022-07-12 12:00 | NUR ---
HEMODIALYSIS WAS DONE, REMOVED 2000 ML. BP 125/51, HR 90
[2022-07-12] MEDS: BLOOD SUGAR DIAGNOSTIC 1 EACH STRIP IN SCH (13:26)
--- NOTE | 2022-07-12 14:42 | NUR ---
PATIENT WAS PICKED UP BY AN AMBULANCE TO BE TRANSFERRED TO [facility]. PATIENT LEFT VIA GURNEY, NO RESPIRATORY DISTRESS NOTED
--- NOTE | 2022-07-12 17:50 | NUR ---
GAVE REPORT PREVIOUSLY TO STEPHIE AT [facility] ABOUT THE PATIENT'S CONDITION
[2022-07-19] MEDS ORDERED: EPOE40007 IJ (09:45)
== END 2022-07-12 17:00 | DRG 870 ==
LOC: ER 16:18 → ICU 22:41 → TELE-TD 06-10 02:23 → TELE1 06-11 14:27 → UNDODISIN 07-12 14:46
PROVIDERS: ADMIT Internal Medicine; ATTEND Internal Medicine
PROC: 5A1955Z Respiratory Ventilation, Greater than 96 Consecutive Hours (ICD-10-PCS; principal; 2022-06-08)
PROC: 5A1D70Z Performance of Urinary Filtration, Intermittent, Less than 6 Hours Per Day (ICD-10-PCS; 2022-06-09)
PROC: 05H933Z Insertion of Infusion Device into Right Brachial Vein, Percutaneous Approach (ICD-10-PCS; 2022-06-14)
PROC: 05HC33Z Insertion of Infusion Device into Left Basilic Vein, Percutaneous Approach (ICD-10-PCS; 2022-06-16)
PROC: 05H933Z Insertion of Infusion Device into Right Brachial Vein, Percutaneous Approach (ICD-10-PCS; 2022-06-21)
PROC: 0JPT3XZ Removal of Tunneled Vascular Access Device from Trunk Subcutaneous Tissue and Fascia, Percutaneous Approach (ICD-10-PCS; 2022-06-21)
PROC: 30233N1 Transfusion of Nonautologous Red Blood Cells into Peripheral Vein, Percutaneous Approach (ICD-10-PCS; 2022-06-25)
PROC: 06HY33Z Insertion of Infusion Device into Lower Vein, Percutaneous Approach (ICD-10-PCS; 2022-06-25)
PROC: 05H933Z Insertion of Infusion Device into Right Brachial Vein, Percutaneous Approach (ICD-10-PCS; 2022-07-08)
PROC: 0JH63XZ Insertion of Tunneled Vascular Access Device into Chest Subcutaneous Tissue and Fascia, Percutaneous Approach (ICD-10-PCS; 2022-07-09)
PROC: 05HN33Z Insertion of Infusion Device into Left Internal Jugular Vein, Percutaneous Approach (ICD-10-PCS; 2022-07-09)
PROC: B544ZZA Ultrasonography of Left Jugular Veins, Guidance (ICD-10-PCS; 2022-07-09)
DX: A41.02 Sepsis due to Methicillin resistant Staphylococcus aureus (principal); N18.6 End stage renal disease; J18.9 Pneumonia, unspecified organism; R65.21 Severe sepsis with septic shock; E87.1 Hypo-osmolality and hyponatremia; J96.11 Chronic respiratory failure with hypoxia; J90 Pleural effusion, not elsewhere classified; Z99.11 Dependence on respirator [ventilator] status; E87.2 Acidosis; J98.11 Atelectasis; J44.0 Chronic obstructive pulmonary disease with (acute) lower respiratory infection; I12.0 Hypertensive chronic kidney disease with stage 5 chronic kidney disease or end stage renal disease; Z86.73 Personal history of transient ischemic attack (TIA), and cerebral infarction without residual deficits; Z93.0 Tracheostomy status; Z93.1 Gastrostomy status; R13.10 Dysphagia, unspecified; Z20.822 Contact with and (suspected) exposure to COVID-19; D63.8 Anemia in other chronic diseases classified elsewhere; E11.22 Type 2 diabetes mellitus with diabetic chronic kidney disease; E78.5 Hyperlipidemia, unspecified; Z88.1 Allergy status to other antibiotic agents; Z88.5 Allergy status to narcotic agent; Z88.2 Allergy status to sulfonamides; Z88.8 Allergy status to other drugs, medicaments and biological substances; Z79.4 Long term (current) use of insulin; Z79.51 Long term (current) use of inhaled steroids; Z79.899 Other long term (current) drug therapy; E87.6 Hypokalemia; E03.9 Hypothyroidism, unspecified; E86.0 Dehydration; Z99.2 Dependence on renal dialysis; M20.41 Other hammer toe(s) (acquired), right foot; M20.42 Other hammer toe(s) (acquired), left foot; K57.90 Diverticulosis of intestine, part unspecified, without perforation or abscess without bleeding; D75.839 Thrombocytosis, unspecified; I25.2 Old myocardial infarction; M85.9 Disorder of bone density and structure, unspecified; L89.156 Pressure-induced deep tissue damage of sacral region; L89.326 Pressure-induced deep tissue damage of left buttock; I05.0 Rheumatic mitral stenosis; E87.5 Hyperkalemia; L89.626 Pressure-induced deep tissue damage of left heel; L89.896 Pressure-induced deep tissue damage of other site; M62.50 Muscle wasting and atrophy, not elsewhere classified, unspecified site; B96.5 Pseudomonas (aeruginosa) (mallei) (pseudomallei) as the cause of diseases classified elsewhere
CPT/HCPCS: 31720; 36410; 36415; 36600; 71045-TC; 71250-TC; 80048-TC; 80053-TC; 80076-TC; 80202-TC; 82272-TC; 82550-TC; 82728-TC; 82803-TC; 82962-TC; 83540-TC; 83605-TC; 83735-TC; 83880; 84100-TC; 84484-TC; 85025-TC; 85027-TC; 85610-TC; 85730-TC; 86704; 86705; 86706; 86803; 86850-TC; 87040-TC; 87070-TC; 87081-TC; 87186-TC; 87340; 90935-TC; 93307-TC; 93971-TC; 94002-TC; 94003-TC; 94760-TC; 94762-TC; 94799-TC; 99082-TC; A4216; A4623; A6253; A6403; A7526; A9563; C1750; C1769; C1894; C9803; G0378; J0360; J0692; J0878; J1644; J1815; J2020; J2185; J2248; J2270; J2543; J2704; J3370; J3490; J7030; J7042; J7050; J7060; P9016; P9047; Q9967

== ENCOUNTER 2022-07-16 12:42 | Inpatient (IN) | payer MEDICARE, OTHER ==
[2022-07-16] VITALS (13 sets, daily range): BP systolic 91–135; BP diastolic 44–76
[~2022-07-16] VITALS: Ht 162.6 cm; Wt 72.1 kg
[~2022-07-16 12:42] MED LIST changes: -VANC125C11 GT
--- NOTE | 2022-07-16 12:42 | NUR ---
NUBIA BURNS FROM [facility] FOR LOW HEMOGLOBIN DRAWN ON 07/14 HEMOGLOBIN LEVEL 5.3. PLACED ON BED, AWAKE ALERT, TRACHEOSTOMY TUBE RESP. TECH AT BED SIDE ATTACHED TO VENTILATOR ON AC/VC SETTING FIO2-40%, VT-400, RATE-18 PEEP-5 SATURATING AT 98%.
--- NOTE | 2022-07-16 13:14 | NUR ---
RAIL SWITCH OPERATOR AT BED SIDE
[2022-07-16] MEDS ORDERED: MIDO5TAB4 GT (13:22)
[2022-07-16] MEDS ORDERED: INSU100V39 SQ (13:22)
[2022-07-16] MEDS ORDERED: CHLO473M5 MM (13:22)
[2022-07-16] MEDS ORDERED: CARV12.52 GT (13:22)
[2022-07-16] MEDS ORDERED: AMIN30LI2 GT (13:22)
[2022-07-16] MEDS ORDERED: HYDR-4075 GT (13:22)
[2022-07-16] MEDS ORDERED: ALBU2.5V38 IH (13:22)
[2022-07-16] MEDS ORDERED: DAPT500V2 IV (13:22)
[2022-07-16] MEDS ORDERED: NUT.237L85 GT (13:22)
[2022-07-16] MEDS ORDERED: ASPI-1169 GT (13:22)
[2022-07-16] MEDS ORDERED: ZINC56.713 TP (13:28)
[2022-07-16] MEDS ORDERED: POVI3780 TP (13:28)
[2022-07-16 13:44] LABS: BASOPHILS # (AUTO) 0.1 K/uL (0.0-0.2); BASOPHILS % (AUTO) 0.8 % (0.0-2.0); EOSINOPHILS % (AUTO) 13.2 % (0.0-6.0); LYMPHOCYTES # (AUTO) 1.9 K/uL (0.8-4.8); LYMPHOCYTES % (AUTO) 12.8 % (20.0-44.0); MEAN CORPUSCULAR HGB CONC 33 g/dl (31.0-36.0); MEAN CORPUSCULAR VOLUME 95 fL (82-100); MONOCYTES # (AUTO) 1.1 K/uL (0.1-1.30); MONOCYTES % (AUTO) 7.4 % (2.0-12.0); NEUTROPHILS # (AUTO) 9.8 K/uL (1.8-8.9); NEUTROPHILS % (AUTO) 65.8 % (43.0-81.0); PLATELET COUNT (AUTO) 417 K/uL (150-450); WHITE BLOOD COUNT (AUTO) 14.9 K/uL (4.3-11.0)
[2022-07-16 13:50] LABS: RED BLOOD CELL COUNT(AUTO) 1.24 MIL/uL (4.0-5.2)
[2022-07-16 13:51] LABS: CALCIUM, SERUM 9.3 mg/dL (8.5-10.1); CARBON DIOXIDE 27 mmol/L (21-32); CHLORIDE 96 mmol/L (98-107); CREATININE 4.6 mg/dL (0.6-1.3); GLUCOSE 183 mg/dL (74-106); SODIUM SERUM 134 mmol/L (136-145)
[2022-07-16 13:53] LABS: HEMATOCRIT 12 % (33-45); HEMOGLOBIN 3.9 g/dL (11.5-14.8)
[2022-07-16 13:56] LABS: UREA NITROGEN, BLOOD 101 mg/dL (7-18)
[2022-07-16 13:57] LABS: ALANINE AMINOTRANSFERASE 10 U/L (12-78); ALBUMIN 2.3 g/dL (3.4-5.0); ALKALINE PHOSPHATASE 230 U/L (46-116); ASPARTATE AMINOTRANSFERASE 14 U/L (15-37); BILIRUBIN,DIRECT 0.1 mg/dL (0.0-0.2); BILIRUBIN,TOTAL 0.3 mg/dL (0.2-1.0); TOTAL PROTEIN, SERUM 7.3 g/dL (6.4-8.2)
--- NOTE | 2022-07-16 14:10 | NUR ---
CALLED FOR MIDLINE.
--- NOTE | 2022-07-16 14:23 | NUR ---
SWAB FOR COVID19 SENT TO LAB
--- NOTE | 2022-07-16 15:15 | NUR ---
COMMENNCED ON BLOOD TRANSFUSION TYPE-O POS. VERIFIED WITH KRYSTEN LOPEZ. TEMP-98.9, BP-128/69, NC- 115, RR-18 SATURATING AT 100%
--- NOTE | 2022-07-16 15:26 | NUR ---
GOING TO ICU 253
[2022-07-16] MEDS ORDERED: MAG HYDROX/AL HYDROX/SIMETH 30 ML UDC PO PRN (15:30)
[2022-07-16] MEDS ORDERED: HOME MED MISCELLANEOUS XX SCH (15:30)
[2022-07-16] MEDS ORDERED: Z GUARD REMEDY 4 OZ OINT TP PRN (15:30)
[2022-07-16] MEDS ORDERED: ALBUTEROL FS 2.5 MG/3 ML VIAL.NEB NEB PRN (15:30)
[2022-07-16] MEDS ORDERED: MAGNESIUM HYDROXIDE 30 ML UDC PO PRN (15:30)
[2022-07-16] MEDS ORDERED: ONDANSETRON HCL/PF 4 MG/2 ML VIAL IVP PRN (15:30)
[2022-07-16] MEDS ORDERED: ACETAMINOPHEN ES 500 MG TABLET GT PRN (15:30)
[2022-07-16] MEDS ORDERED: MORPHINE SULFATE INJ 2 MG/ML DISP.SYRIN IV PRN (15:30)
[2022-07-16] MEDS ORDERED: MIDODRINE HCL (5MG) 5 MG TABLET GT PRN (15:30)
[2022-07-16] MEDS ORDERED: ACETAMINOPHEN 650 MG/20.3 ML UDC GT PRN (15:30)
[2022-07-16] MEDS ORDERED: ACETAMINOPHEN 325 MG TABLET PO PRN (15:30)
--- NOTE | 2022-07-16 15:44 | NUR ---
REPORT GIVEN TO ARDEN LOPEZ ICU-253 FOR SALVATORE
[2022-07-16] MEDS ORDERED: DEXTROSE 50%-WATER 50 ML DISP.SYRIN IV PRN (16:00)
--- NOTE | 2022-07-16 16:15 | NUR ---
Admit to ICU from ER; Pt with Severe anemia. Pt receiving 1st unit PRBC infusing upon arrival. will continue transfusin in ICU. Cont Vent Managment. Will Follow up HD scheduled MWF. Follow up admitting orders and continue with plan of care
[2022-07-16] MEDS ORDERED: TWOCAL HN 1,000 ML LIQUID GT PRN (16:30)
[2022-07-16] MEDS: hydrALAZINE HCL 10 MG TABLET GT SCH (17:00)
[2022-07-16] MEDS ORDERED: PANTOPRAZOLE 40 MG VIAL IV SCH ×2 (17:00→21:00)
--- NOTE | 2022-07-16 17:45 | NUR ---
RT Received pt on settings provided by transport RT. Pt tolerating current settings well. Suctioned for mod amount of thick bloody secretions. RN aware. Ambu bag + back up trach at bedside. will continue to monitor
[2022-07-16] MEDS: SEVELAMER CARBONATE 800 MG POWD.PACK GT SCH (17:50)
[2022-07-16] MEDS: ALBUTEROL FS 2.5 MG/3 ML VIAL.NEB NEB SCH ×2 (18:00→20:25)
--- NOTE | 2022-07-16 18:40 | NUR ---
Blood transfusion Completed which was started in ER. Blood transfusion form completed and faxed to [facility]
[2022-07-16] MEDS: BLOOD SUGAR DIAGNOSTIC 1 EACH STRIP IN SCH (18:54)
--- NOTE | 2022-07-16 19:23 | NUR ---
2 units PRBC given with HD as ordered
--- NOTE | 2022-07-16 19:45 | NUR ---
ICU/RN: 1 UNIT PRBC INFUSION COMPLETED BY HD NURSE. WILL DRAW H/H POST HD.
[2022-07-16] MEDS: CHLORHEXIDINE GLUCONATE 15 ML UDC MM SCH (21:17)
[2022-07-16] MEDS: CARVEDILOL 12.5 MG TABLET GT SCH (21:17)
[2022-07-16] MEDS: OLANZAPINE 2.5 MG TABLET GT SCH (21:17)
[2022-07-16 23:49] LABS: HEMOGLOBIN 7.3 g/dL (11.5-14.8)
[2022-07-17] VITALS (32 sets, daily range): BP systolic 112–155; BP diastolic 47–91
[2022-07-17] MEDS: BLOOD SUGAR DIAGNOSTIC 1 EACH STRIP IN SCH ×4 (00:30→17:34)
[2022-07-17] MEDS: ALBUTEROL FS 2.5 MG/3 ML VIAL.NEB NEB SCH ×4 (01:03→20:27)
[2022-07-17 03:53] LABS: BASOPHILS # (AUTO) 0.1 K/uL (0.0-0.2); BASOPHILS % (AUTO) 0.8 % (0.0-2.0); EOSINOPHILS % (AUTO) 10.2 % (0.0-6.0); HEMATOCRIT 21 % (33-45); HEMOGLOBIN 7.1 g/dL (11.5-14.8); LYMPHOCYTES # (AUTO) 1.8 K/uL (0.8-4.8); MEAN CORPUSCULAR HGB CONC 34 g/dl (31.0-36.0); MEAN CORPUSCULAR VOLUME 91 fL (82-100); MONOCYTES % (AUTO) 7.4 % (2.0-12.0); NEUTROPHILS # (AUTO) 8.8 K/uL (1.8-8.9); NEUTROPHILS % (AUTO) 67.6 % (43.0-81.0); PLATELET COUNT (AUTO) 338 K/uL (150-450); WHITE BLOOD COUNT (AUTO) 13.1 K/uL (4.3-11.0)
[2022-07-17 04:20] LABS: CALCIUM, SERUM 8.3 mg/dL (8.5-10.1); CARBON DIOXIDE 30 mmol/L (21-32); CHLORIDE 97 mmol/L (98-107); CREATININE 2.7 mg/dL (0.6-1.3); GLUCOSE 115 mg/dL (74-106); PHOSPHORUS 1.9 mg/dL (2.5-4.9); POTASSIUM 3.5 mmol/L (3.5-5.1); SODIUM SERUM 133 mmol/L (136-145); UREA NITROGEN, BLOOD 46 mg/dL (7-18)
[2022-07-17 04:32] LABS: THYROID STIMULATING HORMONE 3.454 uIU/mL (0.358-3.74)
[2022-07-17] MEDS: TWOCAL HN 1,000 ML LIQUID GT PRN (04:56)
--- NOTE | 2022-07-17 07:00 | NUR ---
RN NOTES RECEIVED PT ON BED, ALERT/ NONVERBAL , DOES NOT FOLLOW COMMAND, RESTLESS IN BED, VENT/TRACH DEPENDENT , ON TELE SR HR IN 80'S , TOLERATING TF AT 45 CCF/HR WELL, NO RESIDUAL NOTED, TOLERAING TF WELL, SR UP x3, CALL LIGHT WITHIN EASY REACH, BED LOCKED AND IN LOWEST POSITION, CONTINUE TO MONITOR
--- NOTE | 2022-07-17 07:05 | NUR ---
WOUND CARE CONSULT: PT PRESENTS WITH MULTIPLE DRY SCABS, EXCORIATED AREAS AND AREAS OF SKIN DISCOLORATION INCLUDING SACRAL/BUTTOCKS REGION, DRY WOUNDS TO LOWER EXTREMITIES, PRESENT ON ADMISSION. DR WATKINS AND DR INGRAM TO BE CALLED THIS AM FOR SURGICAL/DPM CONSULT REQUESTS. PT IS INCONTINENT OF STOOL. DISCUSSED SKIN PROTECTION WITH NURSING STAFF. MD IN AGREEMENT WITH PLAN OF CARE.
[2022-07-17 08:33] LABS: OCCULT BLOOD STOOL NEGATIVE (NEGATIVE)
[2022-07-17] MEDS: SEVELAMER CARBONATE 800 MG POWD.PACK GT SCH ×3 (08:37→17:19)
[2022-07-17] MEDS: CHLORHEXIDINE GLUCONATE 15 ML UDC MM SCH ×2 (08:37→21:30)
[2022-07-17] MEDS: LEVOTHYROXINE SODIUM 88 MCG TABLET GT SCH (08:39)
[2022-07-17] MEDS: DOCUSATE SODIUM 100 MG CAPSULE PO SCH (08:39)
[2022-07-17] MEDS: VIT B CMPLX 3/FA/VIT C/BIOTIN 1 TAB TABLET GT SCH (08:41)
[2022-07-17] MEDS: PANTOPRAZOLE 40 MG/PACK PACK GT SCH (08:44)
[2022-07-17] MEDS: PROSOURCE / PROSTAT (PYXIS) 30 ML UDC GT SCH (08:45)
[2022-07-17] MEDS: ZINC OXIDE 30 GM TUBE TP SCH (08:58)
[2022-07-17] MEDS: hydrALAZINE HCL 10 MG TABLET GT SCH ×3 (08:59→17:19)
[2022-07-17] MEDS: CARVEDILOL 12.5 MG TABLET GT SCH ×2 (09:00→21:30)
[2022-07-17] MEDS ORDERED: ASPIRIN 81 MG TAB.CHEW GT SCH (09:00)
--- NOTE | 2022-07-17 09:00 | NUR ---
RN NOTES BP MEDS HELD AT THIS TIME PER DR MAYFIELD , PT RECEIVING HD
[2022-07-17] MEDS ORDERED: NEUTRA PHOS 1 POWD.PACKET GT ONE (11:00)
--- NOTE | 2022-07-17 12:23 | NUR ---
RN NOTES PT TRANSFERRED TO ROOM 327-2 VIA ACLS PROTOCOL IN STABLE CONDITION . REPORT GIVE TO HERMAN LOPEZ FOR CONTINUITY OF CARE .
--- NOTE | 2022-07-17 12:30 | NUR ---
RN NOTE PATIENT WAS TRANSFER FROM ICU VIA GURNEY WITH NO SIGNS OF DISTRESS. REPORT RECEIVED FROM [facility]. V/S TAKEN AND RECORDED. PATIENT AWAKE IN BED RESTING. A/O X 0. NO PAIN NOTED AT THIS TIME. ON VENT TOLERATING VENT WELL AT PRESCRIBED SETTING NO DISTRESS NOTED. PATIENT ON EXTERNAL RIG WELDER WITH CURRENT READING OF SR AND HR OF 85. IV ACCESS JASE MIDLINE, R FOOT #20G, INTACT, PATENT AND FLUSHING WELL. FALL AND SAFETY MEASURES IN PLACE, BED ALARM ON, BED IN LOW AND LOCK POSITION, CALL LIGHT AND TABLE WITHIN EASY REACH, SIDE RAILS UP X2. WILL CONTINUE TO MONITOR.
[2022-07-17] MEDS: INSULIN REGULAR, HUMAN 100 UNIT/ML 3 ML VIAL SQ PRN (17:33)
--- NOTE | 2022-07-17 19:03 | NUR ---
RN CLOSING NOTE PATIENT AWAKE IN BED RESTING. A/O X 0. NO PAIN NOTED AT THIS TIME. ON VENT TOLERATING VENT WELL AT PRESCRIBED SETTING NO DISTRESS NOTED. PATIENT ON EXTERNAL READING SPECIALIST WITH CURRENT READING OF SR AND HR OF 91. IV ACCESS JASE MIDLINE, R FOOT #20G, INTACT, PATENT AND FLUSHING WELL. PATIENT WAS TURNED AND REPOSITIONED PER PROTOCOL. FALL AND SAFETY MEASURES IN PLACE, BED ALARM ON, BED IN LOW AND LOCK POSITION, CALL LIGHT AND TABLE WITHIN EASY REACH, SIDE RAILS UP X2. WILL ENDORSE TO ROTARY DRILL OPERATOR.
--- NOTE | 2022-07-17 19:45 | NUR ---
RN OPENING NOTE PATIENT AWAKE IN BED RESTING. A/O X 0. NO PAIN NOTED AT THIS TIME. ON VENT TOLERATING VENT WELL AT PRESCRIBED SETTING NO DISTRESS NOTED. PATIENT ON EXTERNAL SCREW MACHINE SET UP OPERATOR WITH CURRENT READING OF SR AND HR OF 90S. IV ACCESS JASE MIDLINE, R FOOT #20G, WITH L SUBCLAVIAN HD CATH. FALL AND SAFETY MEASURES IN PLACE, BED ALARM ON, BED IN LOW AND LOCK POSITION, CALL LIGHT AND TABLE WITHIN EASY REACH, SIDE RAILS UP X2.
[2022-07-17] MEDS: OLANZAPINE 2.5 MG TABLET GT SCH (21:29)
[2022-07-18] MEDS: BLOOD SUGAR DIAGNOSTIC 1 EACH STRIP IN SCH ×4 (00:01→18:12)
[2022-07-18] MEDS: INSULIN REGULAR, HUMAN 100 UNIT/ML 3 ML VIAL SQ PRN ×4 (00:03→17:57)
--- NOTE | 2022-07-18 00:20 | NUR ---
RN NOTES PT NOTED WITH 101 FEVER AT THIS TIME. PRN TYLENOL GIVEN AND COOLING MEASURES PROVIDED. PT IN NO DISTRESS AT THIS TIME.
[2022-07-18 01:02] VITALS: BP_SYST 101; BP_SYST 133; BP_DIAS 56
[2022-07-18] MEDS: ALBUTEROL FS 2.5 MG/3 ML VIAL.NEB NEB SCH ×4 (02:02→20:19)
[2022-07-18 04:21] VITALS: BP 120/63
--- NOTE | 2022-07-18 06:36 | NUR ---
RN CLOSING NOTE PATIENT AWAKE IN BED RESTING. A/O X 0. NO PAIN NOTED AT THIS TIME. ON VENT TOLERATING VENT WELL AT PRESCRIBED SETTING NO DISTRESS NOTED. PATIENT ON EXTERNAL ASSEMBLER WET WASH WITH CURRENT READING OF SR AND HR OF 90S. IV ACCESS JASE MIDLINE, R FOOT #20G, WITH L SUBCLAVIAN HD CATH. FALL AND SAFETY MEASURES IN PLACE, BED ALARM ON, BED IN LOW AND LOCK POSITION, CALL LIGHT AND TABLE WITHIN EASY REACH, SIDE RAILS UP X2. NO FEVER AT THIS TIME.
--- NOTE | 2022-07-18 07:30 | NUR ---
REGISTERED MASSAGE THERAPIST NOTES PT IN BED, ASLEEP, EASY TO AROUSE, NON VERBAL, ON VENT/TRACH, NOT IN DISTRESS, NO SIGN OF PAIN, GT FEEDING INFUSING WELL, NO RESIDUAL NOTED, KEPT COMFORTABLE IN BED.
[2022-07-18 07:33] LABS: BASOPHILS # (AUTO) 0.1 K/uL (0.0-0.2); BASOPHILS % (AUTO) 0.7 % (0.0-2.0); EOSINOPHILS % (AUTO) 9.9 % (0.0-6.0); HEMATOCRIT 23 % (33-45); HEMOGLOBIN 7.6 g/dL (11.5-14.8); LYMPHOCYTES # (AUTO) 1.9 K/uL (0.8-4.8); LYMPHOCYTES % (AUTO) 16.6 % (20.0-44.0); MEAN CORPUSCULAR HGB CONC 34 g/dl (31.0-36.0); MEAN CORPUSCULAR VOLUME 94 fL (82-100); MONOCYTES # (AUTO) 1.2 K/uL (0.1-1.30); MONOCYTES % (AUTO) 10.9 % (2.0-12.0); NEUTROPHILS % (AUTO) 61.9 % (43.0-81.0); PLATELET COUNT (AUTO) 345 K/uL (150-450); RED BLOOD CELL COUNT(AUTO) 2.41 MIL/uL (4.0-5.2); WHITE BLOOD COUNT (AUTO) 11.3 K/uL (4.3-11.0)
[2022-07-18 07:47] LABS: CREATINE KINASE, TOTAL 26 U/L (26-192)
[2022-07-18 08:00] VITALS: BP 128/55
[2022-07-18 08:04] LABS: CALCIUM, SERUM 9.3 mg/dL (8.5-10.1); CARBON DIOXIDE 23 mmol/L (21-32); CHLORIDE 103 mmol/L (98-107); CREATININE 2.6 mg/dL (0.6-1.3); GLUCOSE 157 mg/dL (74-106); POTASSIUM 4.2 mmol/L (3.5-5.1); SODIUM SERUM 137 mmol/L (136-145); UREA NITROGEN, BLOOD 35 mg/dL (7-18)
--- NOTE | 2022-07-18 08:29 | NUR ---
WOUND CARE: RECEIVED ANOTHER WOUND CONSULT. DISCUSSED WITH SURGICAL/PODIATRY TEAM CURRENTLY ON CASE. ALL SKIN PROTECTION MEASURES IN PLACE. DEFER TO SURGICAL AND PODIATRY TEAMS FOR WOUND TREATMENT PLAN.
[2022-07-18] MEDS: CARVEDILOL 12.5 MG TABLET GT SCH ×2 (09:00→20:53)
[2022-07-18] MEDS ORDERED: DAPTOMYCIN 500 MG in IV NS 0.9% 50 ML IV SCH (09:00)
[2022-07-18] MEDS ORDERED: DAPTOMYCIN 500 MG/VIAL VIAL IV SCH (09:00)
[2022-07-18] MEDS: hydrALAZINE HCL 10 MG TABLET GT SCH ×3 (09:00→17:50)
[2022-07-18] MEDS: LEVOTHYROXINE SODIUM 88 MCG TABLET GT SCH (09:43)
[2022-07-18] MEDS: PANTOPRAZOLE 40 MG/PACK PACK GT SCH (09:43)
[2022-07-18] MEDS: VIT B CMPLX 3/FA/VIT C/BIOTIN 1 TAB TABLET GT SCH (09:44)
[2022-07-18] MEDS: DOCUSATE SODIUM 100 MG CAPSULE PO SCH (09:44)
[2022-07-18] MEDS: SEVELAMER CARBONATE 800 MG POWD.PACK GT SCH ×3 (09:45→17:50)
[2022-07-18] MEDS: CHLORHEXIDINE GLUCONATE 15 ML UDC MM SCH ×2 (09:46→20:52)
[2022-07-18] MEDS: ZINC OXIDE 30 GM TUBE TP SCH (10:48)
[2022-07-18] MEDS: PROSOURCE / PROSTAT (PYXIS) 30 ML UDC GT SCH (10:48)
[2022-07-18 12:00] VITALS: BP 148/48
--- NOTE | 2022-07-18 14:16 | NUR ---
SHAKE CUTTER NOTES HYDRALAZINE NOT GIVEN, PT WITH ONGOING HEMODIALYSIS AT THIS TIME.
[2022-07-18 16:10] VITALS: BP 130/61
--- NOTE | 2022-07-18 18:55 | NUR ---
MIXER LEVER OPERATOR CLOSING NOTE PATIENT CURRENTLY RESTING IN BED. PATIENT IS ALERT, UNABLE TO MAKE NEEDS KNOWN. NO S/S OF PAIN NOTED AT THIS TIME. PT ON VENT. NO S/SX OF RESPIRATORY DISTRESS NOTED. IV ACCESS TO RIGHT FOOT #20G INTACT, AND RIGHT UPPER ARM MIDLINE INTACT AND PATENT. PT HAS G-TUBE WITH FEEDING RUNNING AT 45 ML/HR. PT ABLE TO TOLERATE FEEDING. G-TUBE SITE INTACT. PT HAS RESTRAINT TO RIGHT HAND. ASPIRATION, FALL AND SAFETY PRECAUTIONS MAINTAINED. WILL ENDORSE PLAN OF CARE TO ONCOMING SHIFT RN.
--- NOTE | 2022-07-18 19:00 | NUR ---
RN opening notes Pt is resting in bed comfortably. Pt is alert and orientedX0. On mec. vent with o2 sat is 100%. No SOB. No S/s of distress noted. tele monitor showed SR hr at 82. JASE midline is clean and intact. R foot # 20 is clean, and intact, flushes easily. L sub HD cath is inplaced, clean and dry. Gtube feeding in inplaced and running two emily @ 45 ml/hr. Safety precautions is maintained. bed at low position, brakes locked, side rails upX3, hob elevated, offloading, bed alarm is on and call light is within reach. will continue to monitor.
[2022-07-18 20:00] VITALS: BP 135/54
[2022-07-18] MEDS: OLANZAPINE 2.5 MG TABLET GT SCH (21:31)
[2022-07-19] VITALS: BP 132/50
[2022-07-19] MEDS: BLOOD SUGAR DIAGNOSTIC 1 EACH STRIP IN SCH ×3 (00:55→12:14)
[2022-07-19] MEDS: INSULIN REGULAR, HUMAN 100 UNIT/ML 3 ML VIAL SQ PRN ×3 (00:57→12:27)
[2022-07-19] MEDS: ALBUTEROL FS 2.5 MG/3 ML VIAL.NEB NEB SCH ×3 (01:48→13:24)
[2022-07-19 04:00] VITALS: BP 128/54
[2022-07-19] MEDS: TWOCAL HN 1,000 ML LIQUID GT PRN (04:12)
--- NOTE | 2022-07-19 06:30 | NUR ---
RN closing notes Pt is resting in bed comfortably. Pt is alert and orientedX0. On mec. vent with O2 sat is 100%. No SOB. No S/s of distress noted. tele monitor showed SR hr 85. JASE midline is clean and intact. R foot # 20 is clean, and intact, flushes easily. L sub HD cath is inplaced, clean and dry. Gtube feeding in inplaced and running two emily @ 45 ml/hr with 0 residual. Routine meds were given as ordered. Kept Pt clean, dry and comfortable. Safety precautions is maintained. bed at low position, brakes locked, side rails upX3, hob elevated, offloading, bed alarm is on and call light is within reach. will endorse to am nurse for SALVATORE.
[2022-07-19 06:36] LABS: BASOPHILS # (AUTO) 0.1 K/uL (0.0-0.2); BASOPHILS % (AUTO) 0.6 % (0.0-2.0); EOSINOPHILS % (AUTO) 18.3 % (0.0-6.0); HEMATOCRIT 26 % (33-45); HEMOGLOBIN 8.4 g/dL (11.5-14.8); LYMPHOCYTES % (AUTO) 16.4 % (20.0-44.0); MEAN CORPUSCULAR HGB CONC 32 g/dl (31.0-36.0); MEAN CORPUSCULAR VOLUME 95 fL (82-100); MONOCYTES % (AUTO) 8.1 % (2.0-12.0); NEUTROPHILS # (AUTO) 6.8 K/uL (1.8-8.9); NEUTROPHILS % (AUTO) 56.6 % (43.0-81.0); PLATELET COUNT (AUTO) 363 K/uL (150-450); RED BLOOD CELL COUNT(AUTO) 2.75 MIL/uL (4.0-5.2)
[2022-07-19 06:53] LABS: IRON, SERUM 35 ug/dl (50-175)
[2022-07-19 06:55] LABS: CALCIUM, SERUM 10.5 mg/dL (8.5-10.1); CARBON DIOXIDE 26 mmol/L (21-32); CHLORIDE 96 mmol/L (98-107); CREATININE 2.4 mg/dL (0.6-1.3); GLUCOSE 164 mg/dL (74-106); POTASSIUM 4.6 mmol/L (3.5-5.1); SODIUM SERUM 132 mmol/L (136-145); UREA NITROGEN, BLOOD 30 mg/dL (7-18)
--- NOTE | 2022-07-19 07:30 | NUR ---
RN OPENING NOTE PT IS SLEEPING IN BED WHEN RECEIVED. PT IS A/O X1 AND NON VERBAL. PT ON A VENTILATOR O2 SAT IS 100%. NO SIGNS OF RESPIRATORY DISTRESS NOTED. PT IS ON TELE MONITOR READING SINUS RHYTHM 85BPM. RIGHT UPPER MIDLINE CLEAN AND DRY, RIGHT FOOT 20G FLUSHING INTACT AND PATENT. LEFT HD CATHETER ON PT'S CHEST CLEAN AND DRY. G TUBE FEEDING IS IN PLACE FLOWING AT 45ML/HR. SAFETY PRECAUTIONS: BED IN LOWEST POSITION, LOCKED, CALL LIGHT WITHIN REACH, BED ALARM IS ON, SIDE RAILS UP X3. WILL CONTINUE TO MONITOR PT.
[2022-07-19 08:00] VITALS: BP 124/55
[2022-07-19] MEDS: SEVELAMER CARBONATE 800 MG POWD.PACK GT SCH ×2 (09:00→12:10)
[2022-07-19] MEDS: CARVEDILOL 12.5 MG TABLET GT SCH (09:00)
[2022-07-19] MEDS: hydrALAZINE HCL 10 MG TABLET GT SCH ×2 (09:00→12:15)
--- NOTE | 2022-07-19 09:00 | NUR ---
RN NOTE DIALYSIS NURSE CAME INTO SEE THE PATIENT. WILL CONTINUE TO MONITOR.
[2022-07-19] MEDS ORDERED: ALBUMIN 25% 25 GM in PREMIX 1 EA IV PRN (09:30)
[2022-07-19] MEDS ORDERED: EPOE40007 IJ (09:45)
[2022-07-19] MEDS: VIT B CMPLX 3/FA/VIT C/BIOTIN 1 TAB TABLET GT SCH (12:10)
[2022-07-19] MEDS: LEVOTHYROXINE SODIUM 88 MCG TABLET GT SCH (12:10)
[2022-07-19] MEDS: PANTOPRAZOLE 40 MG/PACK PACK GT SCH (12:10)
[2022-07-19] MEDS: CHLORHEXIDINE GLUCONATE 15 ML UDC MM SCH (12:11)
[2022-07-19] MEDS: DOCUSATE SODIUM 100 MG CAPSULE PO SCH (12:11)
[2022-07-19] MEDS: PROSOURCE / PROSTAT (PYXIS) 30 ML UDC GT SCH (12:12)
[2022-07-19 12:15] VITALS: BP 90/66
--- NOTE | 2022-07-19 15:30 | NUR ---
RN NOTE PATIENT IS BEING DISCHARGED TO A RETIREMENT FACILITY BEING TRANSPORTED BY EMT. HAND OFF REPORT GIVEN TO STEAM OVEN OPERATOR AND EMT THAT IS TRANSPORTING. DISCHARGE TEACHING AND PAPERWORK GIVEN TO TRANSPORT. PT IS STABLE AT TIME OF DISCHARGE.
== END 2022-07-19 16:00 | DRG 811 ==
LOC: ER 12:45 → ICU 15:58 → MED 07-17 12:15 → TELE 07-17 12:23
PROVIDERS: ADMIT Nurse Practitioner Acute Care; ATTEND Internal Medicine
PROC: 5A1945Z Respiratory Ventilation, 24-96 Consecutive Hours (ICD-10-PCS; principal; 2022-07-16)
PROC: 30233N1 Transfusion of Nonautologous Red Blood Cells into Peripheral Vein, Percutaneous Approach (ICD-10-PCS; 2022-07-16)
PROC: 5A1D70Z Performance of Urinary Filtration, Intermittent, Less than 6 Hours Per Day (ICD-10-PCS; 2022-07-16)
PROC: 05HB33Z Insertion of Infusion Device into Right Basilic Vein, Percutaneous Approach (ICD-10-PCS; 2022-07-16)
DX: D64.9 Anemia, unspecified (principal); N18.6 End stage renal disease; R53.2 Functional quadriplegia; J96.10 Chronic respiratory failure, unspecified whether with hypoxia or hypercapnia; Z99.11 Dependence on respirator [ventilator] status; D68.59 Other primary thrombophilia; E87.2 Acidosis; G93.40 Encephalopathy, unspecified; I12.0 Hypertensive chronic kidney disease with stage 5 chronic kidney disease or end stage renal disease; E11.22 Type 2 diabetes mellitus with diabetic chronic kidney disease; R13.10 Dysphagia, unspecified; Z93.0 Tracheostomy status; Z93.1 Gastrostomy status; Z20.822 Contact with and (suspected) exposure to COVID-19; I69.398 Other sequelae of cerebral infarction; Z88.1 Allergy status to other antibiotic agents; Z88.2 Allergy status to sulfonamides; Z88.8 Allergy status to other drugs, medicaments and biological substances; Z79.899 Other long term (current) drug therapy; Z79.51 Long term (current) use of inhaled steroids; Z79.4 Long term (current) use of insulin; E03.9 Hypothyroidism, unspecified; Z74.09 Other reduced mobility; E78.5 Hyperlipidemia, unspecified; M20.41 Other hammer toe(s) (acquired), right foot; M20.42 Other hammer toe(s) (acquired), left foot; M89.8X9 Other specified disorders of bone, unspecified site; Z86.14 Personal history of Methicillin resistant Staphylococcus aureus infection; Z79.82 Long term (current) use of aspirin; Z99.2 Dependence on renal dialysis; F31.9 Bipolar disorder, unspecified; L89.626 Pressure-induced deep tissue damage of left heel; L89.896 Pressure-induced deep tissue damage of other site; M62.50 Muscle wasting and atrophy, not elsewhere classified, unspecified site; L98.9 Disorder of the skin and subcutaneous tissue, unspecified; J44.9 Chronic obstructive pulmonary disease, unspecified; E86.0 Dehydration; E87.5 Hyperkalemia; D75.839 Thrombocytosis, unspecified
CPT/HCPCS: 31720; 36410; 36415; 71045-TC; 80048-TC; 80076-TC; 82272-TC; 82550-TC; 82962-TC; 83540-TC; 83735-TC; 84100-TC; 84443-TC; 85025-TC; 85027-TC; 85730-TC; 86850-TC; 87040-TC; 87081-TC; 90935-TC; 94002-TC; 94003-TC; 94760-TC; 94762-TC; 94799-TC; A4216; A4217; C9113; C9803; G0378; J0878; J1815; J2270; J7030; J7040; J7050; P9016; P9047

== ENCOUNTER 2022-08-20 13:28 | Inpatient (IN) | payer MEDICARE, OTHER ==
[~2022-08-20] VITALS: Ht 165.1 cm; Wt 69.4 kg
[~2022-08-20 13:28] MED LIST changes: +AMIN30LI2 GT; -AMLO-213 GT; +ASPI-1169 GT; +CARV12.52 GT; +CHLO473M5 MM; +DAPT500V2 IV; +EPOE40007 IJ; +HYDR-4075 GT; -INSU100V28 SQ; +INSU100V39 SQ; -LOSA50TA39 GT; -METO25TA20 GT; +MIDO5TAB4 GT; -NUT.237L67 GT; -NUT.237L67 PO; +NUT.237L85 GT; +POVI3780 TP; +ZINC56.713 TP
--- NOTE | 2022-08-20 13:30 | NUR ---
[id number], BECAME MORE ALTERED, HYPOTENSIVE 2 HOURS ON DIALYSIS. PT ATTCHED TO MONITOR, PT BLOOD PRESSURE UPON ARRIVAL 155/94. PT HAS A G TUBE IN PLACE. TRACH/ VENT DEPENDANT. A&OX0, ABLE TO FOLLOW SOME VERBAL COMMAND. PT HAS DIALYSIS ACCESS ON L CHEST PORT. DR SOUZA AT BEDSIDE. AWAITING ORDERS.
--- NOTE | 2022-08-20 13:35 | NUR ---
VENT SETTINGS: CURRENT MODE: A/C VC FIO2: 40 TIDAL VOLUME: 500 RATE: 18 I:E 1:2 PEEP: 5 PMAX: 60
--- NOTE | 2022-08-20 13:59 | NUR ---
RT RECD PT FROM HD FOR LOW BP TRACH SHILEY 6 XLT CUFFED ON [facility] VENT ON FOLLOWING SETTINGS AC 18 500 +5 40% VENT PLUGGED IN RED OUTLET BAG AND MASK AT [facility] WILL CONT TO MONITOR Addendum: 08/20/22 at 1401 by RACHEL BRUCE RT Amended: Links added.
--- NOTE | 2022-08-20 14:01 | NUR ---
IV ESTABLISHED R UPPER ARM 20G. LABS DRAWN AND SENT.
--- NOTE | 2022-08-20 14:04 | NUR ---
MARIA R COLLECTED AND SENT
[2022-08-20] MEDS ORDERED: PETR113O TP (14:31)
[2022-08-20] MEDS ORDERED: INSU100V11 SQ (14:31)
--- NOTE | 2022-08-20 14:32 | NUR ---
16FR CHAHAL IN PLACE 50CC URINE OUTPUT, URINE CLOUDY AND YELLOW. URINE COLLECTED AND SENT.
[2022-08-20 14:42] LABS: BASOPHILS # (AUTO) 0.1 K/uL (0.0-0.2); BASOPHILS % (AUTO) 0.4 % (0.0-2.0); EOSINOPHILS % (AUTO) 8.5 % (0.0-6.0); HEMATOCRIT 30 % (33-45); HEMOGLOBIN 9.2 g/dL (11.5-14.8); LYMPHOCYTES # (AUTO) 1.3 K/uL (0.8-4.8); LYMPHOCYTES % (AUTO) 7.1 % (20.0-44.0); MEAN CORPUSCULAR HGB CONC 31 g/dl (31.0-36.0); MEAN CORPUSCULAR VOLUME 95 fL (82-100); MONOCYTES # (AUTO) 0.5 K/uL (0.1-1.30); MONOCYTES % (AUTO) 2.8 % (2.0-12.0); NEUTROPHILS # (AUTO) 15.4 K/uL (1.8-8.9); NEUTROPHILS % (AUTO) 81.2 % (43.0-81.0); PLATELET COUNT (AUTO) 656 K/uL (150-450); RED BLOOD CELL COUNT(AUTO) 3.14 MIL/uL (4.0-5.2); WHITE BLOOD COUNT (AUTO) 18.9 K/uL (4.3-11.0)
[2022-08-20 14:53] LABS: BILIRUBIN,URINE NEGATIVE (NEGATIVE); COLOR,URINE YELLOW (YELLOW); LEUKOCYTE ESTERASE ,URINE LARGE (NEGATIVE); NITRITE, URINE NEGATIVE (NEGATIVE); PROTEIN,URINE >=300 mg/dl (NEGATIVE); UGLUCOSE 100 MG/DL mg/dL (NEGATIVE); UROBILINOGEN,URINE 0.2 EU/dL (0.2)
[2022-08-20 14:59] LABS: SERUM AMMONIA 13 umol/L (11-32)
[2022-08-20 15:12] LABS: THYROID STIMULATING HORMONE 5.203 uIU/mL (0.358-3.74)
[2022-08-20 15:24] LABS: ALANINE AMINOTRANSFERASE 11 U/L (12-78); ALBUMIN 2.3 g/dL (3.4-5.0); ALKALINE PHOSPHATASE 198 U/L (46-116); ASPARTATE AMINOTRANSFERASE 16 U/L (15-37); BILIRUBIN,DIRECT 0.1 mg/dL (0.0-0.2); BILIRUBIN,TOTAL 0.3 mg/dL (0.2-1.0); CALCIUM, SERUM 9.7 mg/dL (8.5-10.1); CARBON DIOXIDE 25 mmol/L (21-32); CHLORIDE 102 mmol/L (98-107); GLUCOSE 182 mg/dL (74-106); POTASSIUM 3.4 mmol/L (3.5-5.1); SODIUM SERUM 141 mmol/L (136-145); TOTAL PROTEIN, SERUM 9.1 g/dL (6.4-8.2)
[2022-08-20 15:30] LABS: UREA NITROGEN, BLOOD 83 mg/dL (7-18)
[2022-08-20 15:31] LABS: ACETAMINOPHEN 0 ug/ml (10-30); ALCOHOL, BLOOD < 3 mg/dL (0-0)
[2022-08-20 15:43] LABS: CREATININE 4.2 mg/dL (0.6-1.3)
--- NOTE | 2022-08-20 15:59 | NUR ---
REPORT GIVEN TO GRICEL FOR SALVATORE
[2022-08-20 16:00] VITALS: BP 138/64
[2022-08-20] MEDS ORDERED: CEFEPIME 1 GM in IV D5W 50 ML IV ONE (16:00)
[2022-08-20] MEDS ORDERED: VANCOMYCIN 1 GM in IV D5W 250 ML IV ONE (16:00)
[2022-08-20 16:26] LABS: BACTERIA,URINE 3+ /HPF (None Seen); RBC,URINE 51-80 /HPF (0-2); WBC,URINE TOO NUMEROUS TO COUN /HPF (0-3)
[2022-08-20] MEDS ORDERED: ACETAMINOPHEN ES 500 MG TABLET GT PRN (17:00)
[2022-08-20] MEDS ORDERED: HOME MED MISCELLANEOUS XX SCH ×2 (17:00)
[2022-08-20] MEDS ORDERED: ONDANSETRON HCL/PF 4 MG/2 ML VIAL IVP PRN (17:00)
[2022-08-20] MEDS ORDERED: ALBUTEROL FS 2.5 MG/3 ML VIAL.NEB IH PRN (17:00)
[2022-08-20] MEDS ORDERED: Z GUARD REMEDY 4 OZ OINT TP PRN (17:00)
[2022-08-20] MEDS ORDERED: MORPHINE SULFATE INJ 2 MG/ML DISP.SYRIN IV PRN (17:00)
--- NOTE | 2022-08-20 17:00 | NUR ---
RN NOTE PATIENT RECEIVED FROM EMERGENCY DEPARTMENT. ON MECHANICAL VENTILATOR, TOLERATING SETTINGS WELL, EQUAL CHEST RISE AND FALL, OXYGEN SATURATION AT 100%. PATIENT IS ALERT AND ORIENTED TIMES 0, TRACKS WITH EYES. SINUS RHYTHM ON THE MONITOR. CHAHAL CATHETER ATTACHED NO OUTPUT NOTED. IV ACCESS ON RIGHT UPPER ARM FLUSHING EASILY WITH NO RESISTANCE. GASTRIC TUBE NOTED, DRESSING INTACT. SAFETY MEASURES IMPLEMENTED. WILL ENDORSE TO NIGHTSHIFT RN FOR CONTINUATION OF CARE.
--- NOTE | 2022-08-20 17:01 | NUR ---
PT TRASNPORTED TO 119 WITH ACLS PR[address]S IN PLACE
[2022-08-20] MEDS ORDERED: NEPRO 1,000 ML BOTTLE GT PRN (18:00)
[2022-08-20] MEDS ORDERED: VITAMINS A AND D 56.7 GM TUBE TP PRN (18:00)
[2022-08-20] MEDS: ALBUTEROL FS 2.5 MG/3 ML VIAL.NEB IH SCH (19:41)
[2022-08-20 20:00] VITALS: BP 135/55
--- NOTE | 2022-08-20 22:16 | NUR ---
ANJANA/RN PER DOC, [facility] [place] TO ORDER SLIDING SCALE NOVOLOG INSULIN, PATIENT IS ALLERGIC TO DETEMIR INSULIN.
[2022-08-20] MEDS ORDERED: DEXTROSE 50%-WATER 50 ML DISP.SYRIN IV PRN (22:30)
[2022-08-20] MEDS ORDERED: INSULIN GLARGINE, 100 UNIT/ML CARTRIDGE SQ ONE (22:55)
[2022-08-20] MEDS ORDERED: INSULIN REGULAR, HUMAN 100 UNIT/ML 3 ML VIAL ONE (22:56)
[2022-08-20] MEDS: CARVEDILOL 3.125 MG TABLET GT SCH (23:30)
[2022-08-20] MEDS: INSULIN REGULAR, HUMAN 100 UNIT/ML 3 ML VIAL SQ PRN (23:32)
[2022-08-20] MEDS: INSULIN GLARGINE, 100 UNIT/ML CARTRIDGE SQ SCH (23:34)
[2022-08-20] MEDS: CHLORHEXIDINE GLUCONATE 15 ML UDC MM SCH (23:36)
[2022-08-20] MEDS: OLANZAPINE 2.5 MG TABLET GT SCH (23:36)
[2022-08-20] MEDS: BLOOD SUGAR DIAGNOSTIC 1 EACH STRIP IN SCH (23:37)
[2022-08-21] VITALS: BP 164/69
--- NOTE | 2022-08-21 00:33 | NUR ---
MS/TELE/RN PATIENT PULLED OUT HER IV AND ALMOST PULLED OUT HER HD CATH, OBTAINED ORDER FOR BILATERAL SOFT WRIST RESTRAINTS. WILL MONITOR PER PROTOCOL.
[2022-08-21] MEDS: ALBUTEROL FS 2.5 MG/3 ML VIAL.NEB IH SCH ×4 (01:15→19:48)
[2022-08-21 05:45] VITALS: BP 173/74
[2022-08-21] MEDS: BLOOD SUGAR DIAGNOSTIC 1 EACH STRIP IN SCH ×4 (06:02→23:08)
[2022-08-21] MEDS: hydrALAZINE HCL 10 MG TABLET GT PRN ×2 (06:02→21:04)
[2022-08-21] MEDS: INSULIN REGULAR, HUMAN 100 UNIT/ML 3 ML VIAL SQ PRN ×4 (06:05→23:08)
[2022-08-21 06:25] LABS: BASOPHILS # (AUTO) 0.1 K/uL (0.0-0.2); BASOPHILS % (AUTO) 0.4 % (0.0-2.0); EOSINOPHILS % (AUTO) 10.2 % (0.0-6.0); HEMATOCRIT 30 % (33-45); HEMOGLOBIN 9.3 g/dL (11.5-14.8); LYMPHOCYTES # (AUTO) 1.8 K/uL (0.8-4.8); LYMPHOCYTES % (AUTO) 12.5 % (20.0-44.0); MEAN CORPUSCULAR HGB CONC 32 g/dl (31.0-36.0); MEAN CORPUSCULAR VOLUME 96 fL (82-100); MONOCYTES # (AUTO) 0.8 K/uL (0.1-1.30); MONOCYTES % (AUTO) 5.8 % (2.0-12.0); NEUTROPHILS % (AUTO) 71.1 % (43.0-81.0); PLATELET COUNT (AUTO) 585 K/uL (150-450); RED BLOOD CELL COUNT(AUTO) 3.09 MIL/uL (4.0-5.2); WHITE BLOOD COUNT (AUTO) 14.1 K/uL (4.3-11.0)
--- NOTE | 2022-08-21 06:35 | NUR ---
ANJANA/RN PATIENT IS AWAKE, MORNING CARE WAS DONE, TOTAL LINEN CHANGE RENDERED, KEPT HOB ELEVATED, GTUBE FEEDING INFUSING, MECHANICAL VENTILATOR WORKING WELL ALL NEEDS ATTENDED AT THIS TIME, WILL CONTINUE TO MONITOR.
[2022-08-21 06:46] LABS: CALCIUM, SERUM 9.9 mg/dL (8.5-10.1); CARBON DIOXIDE 21 mmol/L (21-32); CHLORIDE 101 mmol/L (98-107); CREATININE 5.2 mg/dL (0.6-1.3); GLUCOSE 190 mg/dL (74-106); MAGNESIUM 2.6 mg/dL (1.8-2.4); POTASSIUM 4.2 mmol/L (3.5-5.1); SODIUM SERUM 139 mmol/L (136-145)
[2022-08-21 06:50] LABS: UREA NITROGEN, BLOOD 95 mg/dL (7-18)
--- NOTE | 2022-08-21 07:30 | NUR ---
RN OPENING NOTE PATIENT IS IN BED AWAKE, NON VERBAL. WITH TRACHEOSTOMY TO MECHANICAL VENTILATOR FOLLOWING PRESCRIBED SETTINGS: AC MODE, RR 18, TV 500, FIO2 30%, PEEP 5. BREATHING UNLABORED AND NOT IN ANY FORM OF DISTRESS. SINUS RHYTHM ON FASHION DESIGNER. CHAHAL CATHETER INTACT AND ATTACHED TO URINE BAG. PEG TUBE INTACT AND INFUSING WITH NEPRO AT 75L/HR. RIGHT FOREARM INTACT AND PATENT. HD CATHETER ON LEFT CHEST WALL IS INTACT AND COVERED WITH DRY DRESSING. ALL HOSPITAL SAFETY PRECAUTION IN PLACE. BED IS LOCKED IN LOWEST POSITION, 3 SIDE RAILS UP, CALL LIGHT WITHIN REACH. WILL CONTINUE TO MONITOR THROUGHOUT SHIFT.
[2022-08-21 08:00] VITALS: BP 140/76
[2022-08-21] MEDS: VIT B CMPLX 3/FA/VIT C/BIOTIN 1 TAB TABLET GT SCH (09:30)
[2022-08-21] MEDS: ASPIRIN 81 MG TAB.CHEW GT SCH (09:30)
[2022-08-21] MEDS: DOCUSATE SODIUM LIQ 100 MG/10 ML UDC GT SCH (09:30)
[2022-08-21] MEDS: LEVOTHYROXINE SODIUM 88 MCG TABLET GT SCH (09:30)
[2022-08-21] MEDS: PANTOPRAZOLE 40 MG/PACK PACK GT SCH (09:30)
[2022-08-21] MEDS: CARVEDILOL 3.125 MG TABLET GT SCH ×2 (09:31→21:04)
[2022-08-21] MEDS: CHLORHEXIDINE GLUCONATE 15 ML UDC MM SCH ×2 (09:31→21:04)
[2022-08-21] MEDS: PROSOURCE / PROSTAT (PYXIS) 30 ML UDC GT SCH (09:31)
--- NOTE | 2022-08-21 09:37 | NUR ---
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 SURGICAL AND DPM CONSULTS CALLED TO DR WATKINS AND DR INGRAM. RECOMMENDATIONS MADE FOR SKIN PROTECTION. DISCUSSED WITH NURSING STAFF. PT IS ON [facility]ON [facility]OF[facility] BED. IN AGREEMENT WITH PLAN OF CARE. Addendum: 08/21/22 at 0938 by NATHALY FELIZ WNDNU Amended: Links added.
[2022-08-21 12:00] VITALS: BP 158/73
[2022-08-21] MEDS: VITAMINS A AND D 56.7 GM TUBE TP SCH (12:48)
[2022-08-21 16:00] VITALS: BP 174/81
[2022-08-21] MEDS: ALBUMIN 25% 25 GM in PREMIX 1 EA IV PRN (16:25)
[2022-08-21] MEDS: CEFEPIME 1 GM in IV D5W 50 ML IV SCH (17:51)
--- NOTE | 2022-08-21 18:53 | NUR ---
RN CLOSING NOTE PATIENT REMAINED STABLE THROUGHOUT SHIFT. TOLERATES MECHANICAL VENTILATOR SETTINGS, WITH O2 SATURATION AT 100%. BREATHING UNLABORED AND NOT IN ANY FORM OF DISTRESS.SINUS TACHYCARDIA 105 BPM ON ASPHALT PLANT LABORER. IV LINE ON RIGHT FOREARM REMAINS INTACT AND PATENT. G-TUBE REMAINS INTACT. CHAHAL CATHETER REMAINS INTACT. ALL HOSPITAL SAFETY PRECAUTIONS IN PLACE. WILL ENDORSE TO HADOOP APPLICATION DEVELOPER NURSE.
--- NOTE | 2022-08-21 19:48 | NUR ---
RN OPENING NOTES RECEIVED PT IN BED, WITH EYES OPEN. AOx1. MECHANICAL VENT AND TOLERATING WELL. NO SOB NOTED. NO S/SX OF RESPIRATORY DISTRESS NOTED. TELE MONITOR DETECTS SINUS RHYTHM WITH RATE OF 94. IV ACCESS IN RFA #22G. AND LCW HD CATHETER. IV IS INTACT, PATENT, AND FLUSHING WELL. G-TUBE IN PLACE RUNNING NEPRO @ 75 ML/HR. CHAHAL CATHETER IN PLACE. SAFETY PRECAUTIONS IN PLACE: BED IN LOWEST, LOCKED POSITION, SIDERAILS UPx2, AND BRAKES ON. TABLE AND CALL LIGHT WITHIN REACH. ALL NEEDS MET AT THIS TIME.
--- NOTE | 2022-08-21 19:56 | NUR ---
RT Received pt on ordered vent settings: AC 18 500 30% +5. Tolerating current settings well with an SPO2 of 100%. Q6 neb tx given and tolerated. Suctioned x2 with minimal thin yellow secretions. Tx tolerated with no adverse reactions. Trach is patent and secured. Emergency trach and Ambu-bag are bedside. Vent is plugged into red outlet, and alarms are on and audible.
[2022-08-21 20:00] VITALS: BP 174/77
[2022-08-21] MEDS: HYDROGEL DRESSING 90 GM TUBE TP SCH (20:10)
[2022-08-21] MEDS: VANCOMYCIN 500 MG in IV D5W 100 ML IV PRN (20:21)
[2022-08-21] MEDS: NEPRO 1,000 ML BOTTLE GT PRN (20:22)
[2022-08-21] MEDS: OLANZAPINE 2.5 MG TABLET GT SCH (21:04)
[2022-08-21] MEDS: INSULIN GLARGINE, 100 UNIT/ML CARTRIDGE SQ SCH (23:07)
[2022-08-22] VITALS: BP 187/88
[2022-08-22] MEDS: hydrALAZINE HCL 10 MG TABLET GT PRN (00:38)
--- NOTE | 2022-08-22 00:38 | NUR ---
RN NOTES PATIENT STILL HAVE EPISODES OF HYPERTENSION DESPITE ADMINISTERED 10 MG OF HYDRALAZINE. CONTACTED DR. KENNEY WHO ORDERED HYDRALAZINE 10 MG GTUBE Q4HRS INSTEAD OF Q6HRS.
[2022-08-22] MEDS: ALBUTEROL FS 2.5 MG/3 ML VIAL.NEB IH SCH ×4 (01:48→20:12)
[2022-08-22 04:00] VITALS: BP 138/85
--- NOTE | 2022-08-22 05:18 | NUR ---
RN NOTES RECEIVED CRITICAL LAB VALUE FOR BLOOD CULTURES IN AEROBIC BOTTLES WHICH CAME BACK POSITIVE FOR GRAM POSITIVE RODS. DR. KENNEY MADE AWARE AT 0510. NO NEW ORDERS AT THIS TIME.
[2022-08-22] MEDS: BLOOD SUGAR DIAGNOSTIC 1 EACH STRIP IN SCH ×4 (05:38→22:55)
[2022-08-22] MEDS: INSULIN REGULAR, HUMAN 100 UNIT/ML 3 ML VIAL SQ PRN ×4 (05:39→22:57)
--- NOTE | 2022-08-22 05:39 | NUR ---
RN NOTES DID NOT ADMINISTER INSULIN BECAUSE TUBE FEEDING IS SCHEDULED TO BE TURNED ON AT 0830 AND BLOOD SUGAR IS BORDERLINE WITHIN NORMAL LIMITS.
--- NOTE | 2022-08-22 06:42 | NUR ---
RN CLOSING NOTES PT IN BED, WITH EYES OPEN, NONVERBAL. MECHANICAL VENT AND TOLERATING WELL. NO SOB NOTED. NO S/SX OF RESPIRATORY DISTRESS NOTED. TELE MONITOR DETECTS SINUS RHYTHM WITH RATE OF 94. IV ACCESS IN RFA #22G. AND LCW HD CATHETER. IV IS INTACT, PATENT, AND FLUSHING WELL. G-TUBE IN PLACE WITH NEPRO ON HOLD PER SCHEDULE AND ORDER. CHAHAL CATHETER IN PLACE. ALL ORDERS CARRIED OUT. ALL NEEDS MET. PT KEPT CLEAN AND DRY. SAFETY PRECAUTIONS IN PLACE: BED IN LOWEST, LOCKED POSITION, SIDERAILS UPx2, AND BRAKES ON. TABLE AND CALL LIGHT WITHIN REACH. WILL ENDORSE TO ONCOMING SHIFT FOR SALVATORE.
[2022-08-22 06:43] LABS: BASOPHILS # (AUTO) 0.1 K/uL (0.0-0.2); BASOPHILS % (AUTO) 0.5 % (0.0-2.0); EOSINOPHILS % (AUTO) 11.7 % (0.0-6.0); HEMATOCRIT 30 % (33-45); HEMOGLOBIN 9.4 g/dL (11.5-14.8); LYMPHOCYTES # (AUTO) 1.8 K/uL (0.8-4.8); LYMPHOCYTES % (AUTO) 12.3 % (20.0-44.0); MEAN CORPUSCULAR HGB CONC 32 g/dl (31.0-36.0); MEAN CORPUSCULAR VOLUME 96 fL (82-100); MONOCYTES % (AUTO) 6.7 % (2.0-12.0); NEUTROPHILS # (AUTO) 10.3 K/uL (1.8-8.9); NEUTROPHILS % (AUTO) 68.8 % (43.0-81.0); PLATELET COUNT (AUTO) 586 K/uL (150-450)
[2022-08-22 06:55] LABS: CALCIUM, SERUM 11.2 mg/dL (8.5-10.1); CARBON DIOXIDE 24 mmol/L (21-32); CHLORIDE 98 mmol/L (98-107); CREATININE 4.4 mg/dL (0.6-1.3); GLUCOSE 144 mg/dL (74-106); POTASSIUM 3.6 mmol/L (3.5-5.1); SODIUM SERUM 137 mmol/L (136-145); UREA NITROGEN, BLOOD 72 mg/dL (7-18)
--- NOTE | 2022-08-22 07:40 | NUR ---
LICENSED PRACTICAL NURSE CLINIC NURSE OPENING NOTES RECEIVED PATIENT IN BED.PATIENT IS ALERT AND ORIENTED X1. PATIENT IS OBTUNDED AND NONVERBAL. PATIENT IS ON MECHANICAL VENTILATOR WITH ORDERED SETTINGS AND TOLERATING WELL. PATIENT IS SINUS RHYTHM ON TELE MONITOR. PATIENT HAS IV ACCESS ON RIGHT FOREARM 22 GAUGE. IV INTACT AND PATENT.PATIENT HAS LEFT CHEST WALL HD CATHETER. IV INTACT, PATENT AND FLUSHING WELL. PATIENT HAS GTUBE RUNNING NEPHRO AT 75 ML/HR/ CHAHAL CATHETER.PATIENT HAS BILATERAL SOFT WRIST RESTRAINTS.NO SKIN OR CIRCULATION ISSUES NOTED AT THIS TIME. WILL RELEASE RESTRAINT.YELLOW/RED DRAINING WITH SOME SEDIMENTS TO OUTPUT. ALL SAFETY MEASURES IN PLACE. CALL LIGHT WITHIN REACH. BED LOCKED AND IN LOWEST POSITION. ALL SAFETY MEASURES IN PLACE. BED LOCKED AND IN LOWEST POSITION. SIDE RAILS UP X2.
[2022-08-22 08:34] VITALS: BP 164/82
--- NOTE | 2022-08-22 08:35 | NUR ---
will released from restraint ,will continue to monitor.
[2022-08-22] MEDS: LEVOTHYROXINE SODIUM 88 MCG TABLET GT SCH (09:18)
[2022-08-22] MEDS: DOCUSATE SODIUM LIQ 100 MG/10 ML UDC GT SCH (09:18)
[2022-08-22] MEDS: CHLORHEXIDINE GLUCONATE 15 ML UDC MM SCH ×2 (09:19→22:35)
[2022-08-22] MEDS: VIT B CMPLX 3/FA/VIT C/BIOTIN 1 TAB TABLET GT SCH (09:19)
[2022-08-22] MEDS: PROSOURCE / PROSTAT (PYXIS) 30 ML UDC GT SCH (09:19)
[2022-08-22] MEDS: PANTOPRAZOLE 40 MG/PACK PACK GT SCH (09:19)
[2022-08-22] MEDS: ASPIRIN 81 MG TAB.CHEW GT SCH (09:43)
[2022-08-22] MEDS: VITAMINS A AND D 56.7 GM TUBE TP SCH (09:47)
--- NOTE | 2022-08-22 10:00 | NUR ---
SSN/SSBN WEAPONS EQUIPMENT OPERATOR NOTE SPOKE WITH PHARMACY BECAUSE THERE IS ASPIRIN ORDER. PATIENT IS LISTED ASPIRIN ALLERGY. NOTIFIED PHARMACY THAT ASPIRIN IS LISTED ALLERGY. PHARMACY ALSO SAID IF IT WASN'T ENDORSED DURING CHANGE OF SHIFT REPORT THAT PATIENT HAD NO ADVERSE REACTION SAID OK TO GIVE BUT TO ALSO CLARIFY WITH MD. NOTIFIED DR. ROGERS.DR. ROGERS SAID THAT THIS MEDICATION IS CONTINUING TO BE GIVEN AT PATIENT ALF FACILITY. IF NO REACTION NOTED.MD SAID OKAY TO GIVE ADMINISTERED. PATIENT HAD NO ADVERSE REACTION FROM IT.
[2022-08-22] MEDS: CARVEDILOL 3.125 MG TABLET GT SCH ×2 (10:34→22:36)
[2022-08-22] MEDS: HYDROGEL DRESSING 90 GM TUBE TP SCH (10:57)
[2022-08-22 12:00] VITALS: BP 145/67
[2022-08-22 16:00] VITALS: BP 162/79
[2022-08-22] MEDS: ACETAMINOPHEN 650 MG/20.3 ML UDC GT PRN (16:11)
[2022-08-22] MEDS: CEFEPIME 1 GM in IV D5W 50 ML IV SCH (16:13)
--- NOTE | 2022-08-22 16:30 | NUR ---
PATIENT HAD DIALYSIS. PATIENT COULD NOT TOLERATE DIALYSIS DUE TO HYPERVENTILATION AND HIGH HEART RATE
--- NOTE | 2022-08-22 17:00 | NUR ---
PATIENT REMOVED IV SITE. NOTIFIED NURSING BILINGUAL TEACHER ASSISTANT THAT PATIENT IS HARD STICK AND TRIED MULTIPLE TIMES. NURSING BILINGUAL TEACHER ASSISTANT PLACED NEW IV SITE ON LEFT WRIST 24 GAUGE. IV INTACT, PATENT AND FLUSHING WELL. WRAPPED IN KERLIX DRESSING TO AVOID PATIENT FROM PULLING OUT IV.
--- NOTE | 2022-08-22 17:15 | NUR ---
patienttachycardic and tachypneic dr. samuels notified.
[2022-08-22 17:48] LABS: ABG BASE EXCESS -4.4 mmol/L; ABG OXYGEN SATURATION 96.7 % (92.0-98.5); ABG PCO2 44.8 mmHg (35.0-45.0); ABG PH 7.305 (7.350-7.450); ABG PO2 93.1 mmHg (75.0-100.0); AaDO2 68.2 mmHg; COHb 0.5 % (0.5-1.5); MetHb 0.1 % (0.0-1.5); O2Hb 96.1 % (94.0-97.0); PEEP,BG 5 cm H2O; SITE, ABG Right Brachial; VT, ABG 500 mL
--- NOTE | 2022-08-22 18:12 | NUR ---
DR. HERNANDEZ AWARE OF ABG WITH NEW ORDERS ,PRIMARY RN AWARE.CXR RESULT STILL PENDING.
--- NOTE | 2022-08-22 18:18 | NUR ---
Titrate VT to [address] Graff request
[2022-08-22] MEDS ORDERED: LORAZEPAM INJ 2 MG/ML VIAL IV PRN (18:30)
--- NOTE | 2022-08-22 19:15 | NUR ---
ENVELOPE STAMPING MACHINE OPERATOR CLOSING NOTES PATIENT IN BED, ASLEEP BUT EASILY AROUSABLE AND NONVERBAL.PATIENT IS ON MECHANICAL VENTILATOR AND TOLERATING WELL O2 SAT AT 100%. NO SIGNS OF PAIN, DISCOMFORT OR RESPIRATORY DISTRESS NOTED AT THIS TIME.PATIENT IS SINUS RHYTHM AND SINUS TACHYCARDIA ON TELE MONITOR. PATIENT HAS IV GAUGE 24 GAUGE ON LEFT WRIST.WRAPPED IN KERLIX DRESSING TO PREVENT PATIENT FROM PULLING OUT IV. IV INTACT,PATENT AND FLUSHING WELL. PATIENT HAS GTUBE IN PLACE WITH NEPHRO AT 75 ML/HR. NO RESIDUAL VOLUME NOTED. PATIENT HAS CHAHAL CATHETER IN PLACE. PATIENT HAS YELLOW COLOR OUTPUT WITH SOME SEDIMENTS NOTED. NO KINKS OR OBSTRUCTION NOTED AT THIS TIME. CHANGED PATIENT. CHANGE WOUND DRESSING. KEPT CLEAN AND DRY. PATIENT HAS BILATERAL SOFT WRIST RESTRAINTS. NO SKIN OR CIRCULATION ISSUES NOTED AT THIS TIME. ALL SAFETY MEASURES IN PLACE. CALL LIGHT WITHIN REACH. BED LOCKED IN LOWEST POSITION. SIDE RAILS UP X2
--- NOTE | 2022-08-22 19:35 | NUR ---
DEPUTY BAILIFF OPENING NOTES RECEIVED PT IN BED, WITH EYES OPEN. A/OX1. NON VERBAL, ON MECHANICAL VENT AND TOLERATING CURRENT SETTINGS WELL. NO SOB NOTED. NO S/SX OF RESPIRATORY DISTRESS NOTED. ON TELE MONITORING CURRENTLY READING ST AT 105. IV ACCESS IN RFA #22G INTACT, PATENT, AND FLUSHING WELL. NOTED LCW HD CATHETER. WITH G-TUBE IN PLACE RUNNING NEPRO @ 75 ML/HR. CHAHAL CATHETER IN PLACE. SAFETY PRECAUTIONS IN PLACE: BED IN LOWEST, LOCKED POSITION, SIDERAILS UPx2, AND BRAKES ON. TABLE AND CALL LIGHT WITHIN REACH. ALL NEEDS MET AT THIS TIME. WILL CONTINUE TO MONITOR THROUGHOUT THE SHIFT.
[2022-08-22 20:00] VITALS: BP 112/53
[2022-08-22] MEDS: NEPRO 1,000 ML BOTTLE GT PRN (20:26)
[2022-08-22] MEDS: OLANZAPINE 2.5 MG TABLET GT SCH (22:35)
[2022-08-22] MEDS: MUPIROCIN OINT 2% 22 GM TUBE NS SCH (22:36)
[2022-08-22] MEDS: INSULIN GLARGINE, 100 UNIT/ML CARTRIDGE SQ SCH (22:56)
[2022-08-23] VITALS: BP 134/58
--- NOTE | 2022-08-23 00:01 | NUR ---
RN NOTE BS CHECKED AT 303 MG/DL, 12 UNITS OF INSULIN GIVEN PER SLIDING SCALE. WILL CONT TO MONITOR.
[2022-08-23] MEDS: ALBUTEROL FS 2.5 MG/3 ML VIAL.NEB IH SCH ×4 (01:46→20:13)
[2022-08-23 04:00] VITALS: BP 124/61
[2022-08-23] MEDS: BLOOD SUGAR DIAGNOSTIC 1 EACH STRIP IN SCH ×4 (05:40→23:03)
[2022-08-23] MEDS: INSULIN REGULAR, HUMAN 100 UNIT/ML 3 ML VIAL SQ PRN ×4 (05:44→23:03)
--- NOTE | 2022-08-23 06:00 | NUR ---
RN NOTE BS CHECKED AT 142 MG/DL, 2 UNITS OF INSULIN GIVEN PER SLIDING SCALE. WILL CONT TO MONITOR.
--- NOTE | 2022-08-23 06:26 | NUR ---
TRACTOR CRANE OPERATOR CLOSING NOTES PATIENT REMAINS IN BED, SLEEPING BUT EASILY AROUSABLE TO TOUCH AND VOICE. A/OX1. NON VERBAL, ON MECHANICAL VENT AND TOLERATING CURRENT SETTINGS WELL. NO SOB NOTED. NO S/SX OF RESPIRATORY DISTRESS NOTED. ON TELE MONITORING CURRENTLY READING SR AT 97. IV ACCESS IN RFA #22G INTACT, PATENT, AND FLUSHING WELL. NOTED LCW HD CATHETER. WITH G-TUBE IN PLACE RUNNING NEPRO @ 75 ML/HR CURRENTLY TURNED OFF. CHAHAL CATHETER IN PLACE. SAFETY PRECAUTIONS IN PLACE: BED IN LOWEST, LOCKED POSITION, SIDERAILS UP X3. ALL DUE MEDS GIVEN, KEPT DRY AND CLEAN, CALL LIGHT WITHIN REACH. ALL NEEDS MET ATTENDED. WILL ENDORSE TO AM SHIFT NURSE FOR CONTINUITY OF CARE.
[2022-08-23 06:50] LABS: BASOPHILS # (AUTO) 0.2 K/uL (0.0-0.2); BASOPHILS % (AUTO) 1.5 % (0.0-2.0); EOSINOPHILS % (AUTO) 11.5 % (0.0-6.0); HEMATOCRIT 30 % (33-45); HEMOGLOBIN 9.4 g/dL (11.5-14.8); LYMPHOCYTES # (AUTO) 2.6 K/uL (0.8-4.8); MEAN CORPUSCULAR HGB CONC 31 g/dl (31.0-36.0); MEAN CORPUSCULAR VOLUME 98 fL (82-100); MONOCYTES # (AUTO) 1.2 K/uL (0.1-1.30); MONOCYTES % (AUTO) 7.3 % (2.0-12.0); NEUTROPHILS # (AUTO) 10.5 K/uL (1.8-8.9); NEUTROPHILS % (AUTO) 63.7 % (43.0-81.0); PLATELET COUNT (AUTO) 519 K/uL (150-450); RED BLOOD CELL COUNT(AUTO) 3.11 MIL/uL (4.0-5.2); WHITE BLOOD COUNT (AUTO) 16.5 K/uL (4.3-11.0)
[2022-08-23 07:25] LABS: CALCIUM, SERUM 11.2 mg/dL (8.5-10.1); CARBON DIOXIDE 24 mmol/L (21-32); CHLORIDE 98 mmol/L (98-107); CREATININE 5.3 mg/dL (0.6-1.3); GLUCOSE 140 mg/dL (74-106); POTASSIUM 4.3 mmol/L (3.5-5.1); SODIUM SERUM 138 mmol/L (136-145)
--- NOTE | 2022-08-23 07:31 | NUR ---
RN OPENING NOTES PATIENT REMAINS IN BED, AWAKE A/OX1. NON VERBAL, ON MECHANICAL VENT AND TOLERATING CURRENT SETTINGS WELL. NO SOB NOTED. NO S/SX OF RESPIRATORY DISTRESS NOTED. ON TELE MONITORING CURRENTLY READING SR AT 97. IV ACCESS IN LEFT WRIST #22G INTACT, PATENT, AND FLUSHING WELL. NOTED LCW HD CATHETER. WITH G-TUBE IN PLACE RUNNING NEPRO @ 75 ML/HR CURRENTLY TURNED OFF PER SCHEDULE. CHAHAL CATHETER IN PLACE. SAFETY PRECAUTIONS IN PLACE: BED IN LOWEST, LOCKED POSITION, SIDERAILS UP X3, CALL LIGHT WITHIN REACH. WILL CONTINUE PLAN OF CARE AND ANTICIPATE NEEDS.
[2022-08-23] MEDS: LEVOTHYROXINE SODIUM 88 MCG TABLET GT SCH (07:43)
[2022-08-23 08:00] VITALS: BP 141/66
[2022-08-23 08:03] LABS: UREA NITROGEN, BLOOD 90 mg/dL (7-18)
[2022-08-23] MEDS: CARVEDILOL 3.125 MG TABLET GT SCH ×2 (08:45→21:39)
[2022-08-23] MEDS: HYDROGEL DRESSING 90 GM TUBE TP SCH (08:45)
[2022-08-23] MEDS: MUPIROCIN OINT 2% 22 GM TUBE NS SCH ×2 (08:45→20:12)
[2022-08-23] MEDS: DOCUSATE SODIUM LIQ 100 MG/10 ML UDC GT SCH (08:45)
[2022-08-23] MEDS: CHLORHEXIDINE GLUCONATE 15 ML UDC MM SCH ×2 (08:45→20:12)
[2022-08-23] MEDS: VITAMINS A AND D 56.7 GM TUBE TP SCH (08:45)
[2022-08-23] MEDS: VIT B CMPLX 3/FA/VIT C/BIOTIN 1 TAB TABLET GT SCH (08:45)
[2022-08-23] MEDS: PANTOPRAZOLE 40 MG/PACK PACK GT SCH (08:45)
[2022-08-23] MEDS: ASPIRIN 81 MG TAB.CHEW GT SCH (08:45)
[2022-08-23] MEDS: PROSOURCE / PROSTAT (PYXIS) 30 ML UDC GT SCH (08:47)
[2022-08-23 12:00] VITALS: BP 117/55
[2022-08-23 13:23] LABS: EOSINOPHILS % (MANUAL) 15 % (0-4); LYMPHOCYTES % (MANUAL) 17 % (16-48); MONOCYTES % (MANUAL) 8 % (0-11.0); NEUTROPHILS % (MANUAL) 60 (42-76)
[2022-08-23 16:00] VITALS: BP 140/61
[2022-08-23] MEDS: NEPRO 1,000 ML BOTTLE GT PRN (18:08)
--- NOTE | 2022-08-23 18:31 | NUR ---
RN CLOSING NOTES PATIENT REMAINS IN BED, AWAKE A/OX1. NON VERBAL, ON MECHANICAL VENT AND TOLERATING CURRENT SETTINGS WELL. NO SOB NOTED. NO S/SX OF RESPIRATORY DISTRESS NOTED. ON TELE MONITORING CURRENTLY READING SR AT 95 BPM. IV ACCESS IN LEFT WRIST #22G INTACT, PATENT, AND FLUSHING WELL. NOTED LCW HD CATHETER. WITH G-TUBE IN PLACE RUNNING NEPRO @ 75 ML/HR. CHAHAL CATHETER IN PLACE. SAFETY PRECAUTIONS IN PLACE: BED IN LOWEST, LOCKED POSITION, SIDE RAILS UP X3, CALL LIGHT WITHIN REACH. ALL DUE MEDICATIONS ADMINISTERED. WILL ENDORSE TO NIGHTSHIFT RN FOR CONTINUATION OF CARE.
--- NOTE | 2022-08-23 19:26 | NUR ---
STRIPPER AND OPAQUER APPRENTICE OPENING NOTES RECEIVED PT IN BED, WITH EYES OPEN. A/OX1. NON VERBAL, ON MECHANICAL VENT AND TOLERATING CURRENT SETTINGS WELL. NO SOB NOTED. NO S/SX OF RESPIRATORY DISTRESS NOTED. ON TELE MONITORING CURRENTLY READING SR AT 97. IV ACCESS IN RFA #22G INTACT, PATENT, AND FLUSHING WELL. NOTED LCW HD CATHETER. WITH G-TUBE IN PLACE RUNNING NEPRO @ 75 ML/HR. CHAHAL CATHETER IN PLACE. SAFETY PRECAUTIONS IN PLACE: BED IN LOWEST, LOCKED POSITION, SIDERAILS UPx2, AND BRAKES ON. TABLE AND CALL LIGHT WITHIN REACH. ALL NEEDS MET AT THIS TIME. WILL CONTINUE TO MONITOR THROUGHOUT THE SHIFT.
[2022-08-23 20:00] VITALS: BP 144/52
[2022-08-23] MEDS ORDERED: GENTAMICIN 80 MG in IV D5W 100 ML IV ONE (20:00)
[2022-08-23] MEDS: OLANZAPINE 2.5 MG TABLET GT SCH (21:39)
[2022-08-23] MEDS: INSULIN GLARGINE, 100 UNIT/ML CARTRIDGE SQ SCH (23:02)
--- NOTE | 2022-08-23 23:40 | NUR ---
RN NOTE BS CHECKED AT 232 MG/DL, 6 UNITS OF INSULIN GIVEN PER SLIDING SCALE. WILL CONT TO MONITOR.
[2022-08-24] VITALS: BP 159/58
[2022-08-24] MEDS: ALBUTEROL FS 2.5 MG/3 ML VIAL.NEB IH SCH ×4 (01:58→20:06)
[2022-08-24 04:00] VITALS: BP 153/61
[2022-08-24] MEDS: BLOOD SUGAR DIAGNOSTIC 1 EACH STRIP IN SCH ×4 (05:48→23:08)
--- NOTE | 2022-08-24 05:48 | NUR ---
RN NOTE BS CHECKED AT 111 MG/DL, NO COVERAGE GIVEN PER SLIDING SCALE. WILL CONT TO MONITOR.
--- NOTE | 2022-08-24 06:38 | NUR ---
SWEATBAND MAKER CLOSING NOTES PATIENT REMAINS IN BED, SLEEPING BUT EASILY AROUSABLE TO TOUCH AND VOICE. A/OX1. NON VERBAL, ON MECHANICAL VENT AND TOLERATING CURRENT SETTINGS WELL. NO SOB NOTED. NO S/SX OF RESPIRATORY DISTRESS NOTED. ON TELE MONITORING CURRENTLY READING SR AT 99. IV ACCESS IN L WRIST #22G INTACT, PATENT, AND FLUSHING WELL. NOTED LCW HD CATHETER. WITH G-TUBE IN PLACE RUNNING NEPRO @ 75 ML/HR CURRENTLY OFF. CHAHAL CATHETER IN PLACE. ALL DUE MEDS GIVEN, KEPT DRY AND CLEAN, PICTURES TAKEN AND PLACED ON CHART, MAINTAINED SAFETY PRECAUTIONS: BED IN LOWEST, LOCKED POSITION, SIDERAILS UP X3. CALL LIGHT WITHIN REACH. ALL NEEDS MET ATTENDED. WILL ENDORSE TO AM SHIFT NURSE FOR CONTINUITY OF CARE.
[2022-08-24 06:50] LABS: BASOPHILS # (AUTO) 0.1 K/uL (0.0-0.2); BASOPHILS % (AUTO) 0.4 % (0.0-2.0); EOSINOPHILS % (AUTO) 12.8 % (0.0-6.0); HEMATOCRIT 29 % (33-45); HEMOGLOBIN 9.3 g/dL (11.5-14.8); LYMPHOCYTES # (AUTO) 2.1 K/uL (0.8-4.8); LYMPHOCYTES % (AUTO) 13.8 % (20.0-44.0); MEAN CORPUSCULAR HGB CONC 32 g/dl (31.0-36.0); MEAN CORPUSCULAR VOLUME 96 fL (82-100); MONOCYTES # (AUTO) 1.1 K/uL (0.1-1.30); MONOCYTES % (AUTO) 7.3 % (2.0-12.0); NEUTROPHILS # (AUTO) 9.7 K/uL (1.8-8.9); NEUTROPHILS % (AUTO) 65.7 % (43.0-81.0); PLATELET COUNT (AUTO) 498 K/uL (150-450); RED BLOOD CELL COUNT(AUTO) 3.03 MIL/uL (4.0-5.2); WHITE BLOOD COUNT (AUTO) 14.8 K/uL (4.3-11.0)
[2022-08-24 07:21] LABS: CALCIUM, SERUM 10.7 mg/dL (8.5-10.1); CARBON DIOXIDE 26 mmol/L (21-32); CHLORIDE 95 mmol/L (98-107); CREATININE 3.9 mg/dL (0.6-1.3); GLUCOSE 111 mg/dL (74-106); POTASSIUM 3.7 mmol/L (3.5-5.1); SODIUM SERUM 133 mmol/L (136-145); UREA NITROGEN, BLOOD 70 mg/dL (7-18)
[2022-08-24 07:25] LABS: GENTAMICIN,RANDOM 3.1 ug/ml (4.0-8.0)
--- NOTE | 2022-08-24 07:48 | NUR ---
RN OPENING NOTES RECEIVED PT IN BED, AWAKE AND ALERT, ON MECHANICAL VENT AND TOLERATING CURRENT SETTINGS WELL. NO SOB NOTED. NO S/SX OF RESPIRATORY DISTRESS NOTED. ON TELE MONITORING CURRENTLY READING ON 1ST DEGREE AV BLOCK HR= 97. IV ACCESS ON LEFT WRIST, INTACT, PATENT, AND FLUSHING WELL. NOTED LCW HD CATHETER. G-TUBE IN PLACE, DRESSING DRY AND INTACT. CHAHAL CATHETER IN PLACE,DRAINING VIA GRAVITY. SAFETY PRECAUTIONS IN PLACE: BED IN LOWEST, LOCKED POSITION, SIDERAILS UPx2, AND BRAKES ON. CALL LIGHT WITHIN REACH. WILL CONTINUE TO MONITOR. Addendum: 08/24/22 at 0801 by LESTER JAMES RN TUBE FEEDING TO RESUME AT 0830.
[2022-08-24 08:00] VITALS: BP 144/55
[2022-08-24] MEDS: DOCUSATE SODIUM LIQ 100 MG/10 ML UDC GT SCH (08:42)
[2022-08-24] MEDS: LEVOTHYROXINE SODIUM 88 MCG TABLET GT SCH (08:42)
[2022-08-24] MEDS: ASPIRIN 81 MG TAB.CHEW GT SCH (08:42)
[2022-08-24] MEDS: CARVEDILOL 3.125 MG TABLET GT SCH ×2 (08:43→20:28)
[2022-08-24] MEDS: PANTOPRAZOLE 40 MG/PACK PACK GT SCH (08:43)
[2022-08-24] MEDS: VIT B CMPLX 3/FA/VIT C/BIOTIN 1 TAB TABLET GT SCH (08:43)
[2022-08-24] MEDS: MUPIROCIN OINT 2% 22 GM TUBE NS SCH ×2 (08:53→20:24)
[2022-08-24] MEDS: CHLORHEXIDINE GLUCONATE 15 ML UDC MM SCH ×2 (08:53→20:10)
[2022-08-24] MEDS: VITAMINS A AND D 56.7 GM TUBE TP SCH (08:54)
[2022-08-24] MEDS: HYDROGEL DRESSING 90 GM TUBE TP SCH (08:54)
[2022-08-24] MEDS: PROSOURCE / PROSTAT (PYXIS) 30 ML UDC GT SCH (08:56)
[2022-08-24] MEDS: INSULIN REGULAR, HUMAN 100 UNIT/ML 3 ML VIAL SQ PRN ×3 (11:31→23:08)
[2022-08-24 12:00] VITALS: BP 133/58
[2022-08-24] MEDS: ALBUMIN 25% 25 GM in PREMIX 1 EA IV PRN (12:49)
[2022-08-24 14:06] LABS: BAND % (MANUAL) 3 % (0.0-5.0); NEUTROPHILS % (MANUAL) 62 (42-76)
[2022-08-24 14:07] LABS: EOSINOPHILS % (MANUAL) 9 % (0-4); LYMPHOCYTES % (MANUAL) 15 % (16-48); MONOCYTES % (MANUAL) 11 % (0-11.0)
[2022-08-24] MEDS: GENTAMICIN 80 MG in IV D5W 50 ML IV PRN (15:14)
[2022-08-24 16:00] VITALS: BP 173/62
[2022-08-24] MEDS: NEPRO 1,000 ML BOTTLE GT PRN (16:30)
[2022-08-24] MEDS: hydrALAZINE HCL 10 MG TABLET GT PRN (18:10)
[2022-08-24] MEDS: VANCOMYCIN 500 MG in IV D5W 100 ML IV PRN (18:11)
--- NOTE | 2022-08-24 18:51 | NUR ---
RN CLOSING NOTES PATIENT REMAINS IN BED, SLEEPING BUT EASILY AROUSABLE TO TOUCH AND VOICE. A/OX1. NON VERBAL, ON MECHANICAL VENT AND TOLERATING CURRENT SETTINGS WELL. NO SOB NOTED. NO S/SX OF RESPIRATORY DISTRESS NOTED. ON TELE MONITORING CURRENTLY READING SR AT 100. IV ACCESS IN L HAND 24 G, PATENT, AND FLUSHING WELL. JASE PERMACATH HD CATHETER INTACT. WITH G-TUBE IN PLACE RUNNING NEPRO @ 75 ML/HR CURRENTLY RUNNING, TOLERATING WELL. GT PATENT AND INTACT. CHAHAL CATHETER IN PLACED DRAINING WITH 50CC URINE. ALL DUE MEDS GIVEN. PRN HYDRALAZINE GIVEN DUE TO BP= 173/62. MAINTAINED SAFETY PRECAUTIONS: BED IN LOWEST, LOCKED POSITION, SIDERAILS UP X3. CALL LIGHT WITHIN REACH. WILL ENDORSE TO MANAGER OF CREATIVE SERVICES NURSE FOR CONTINUITY OF CARE.
--- NOTE | 2022-08-24 20:00 | NUR ---
WOOL DYER OPENING NOTES. RECEIVED PT FOR CONTINUITY OF CARE. PATIENT A/OX1 IN NO S/SX OF ACUTE DISTRESS AT THIS TIME; CURRENTLY ON MECHANICAL VENT; SETTING PRESCRIBED, WITH 02 SAT >95% AT THIS TIME. WITH IV ACCESS PATENT, INTACT AND FLUSHING WELL. HD CATH ON RIGHT UPPER ARM PERMACATH . GTUBE FEEDING NEPHRO 75CC /HR INFUSING WELL NO RESIDUAL NOTED. RUNNING PRESCRIBED. WILL ENSURE SAFETY MEASURES WITHIN THE SHIFT. PATIENT BED ALARM IS ON. HEAD OF BED ELEVATED. BED IS LOCKED, IN LOWEST POSITION AND SIDE RAILS UP. CALL LIGHT WITHIN REACH OF THE PATIENT. APPLICABLE ISOLATION PRECAUTIONS IN PLACE. WILL CONTINUE TO MONITOR AND REASSESS FOR ANY CHANGES AND WILL CARRY OUT ANY ONGOING AND ACTIVE MD ORDER.
[2022-08-24] MEDS ORDERED: MUPIROCIN OINT 2% 22 GM TUBE ONE (20:24)
[2022-08-24 21:00] VITALS: BP_SYST 158; BP_SYST 173; BP_DIAS 62; BP_DIAS 76
[2022-08-24] MEDS: OLANZAPINE 2.5 MG TABLET GT SCH (22:25)
[2022-08-24] MEDS: INSULIN GLARGINE, 100 UNIT/ML CARTRIDGE SQ SCH (22:42)
--- NOTE | 2022-08-24 23:10 | NUR ---
radio television announcer notes blood sugar at 12mn is 251 mg/dl 9 units of regular insulin given per sliding scale.
[2022-08-25] VITALS: BP 117/57
[2022-08-25] MEDS: ALBUTEROL FS 2.5 MG/3 ML VIAL.NEB IH SCH ×4 (01:02→19:49)
[2022-08-25 04:00] VITALS: BP 135/57
[2022-08-25] MEDS: BLOOD SUGAR DIAGNOSTIC 1 EACH STRIP IN SCH ×4 (05:32→23:03)
[2022-08-25] MEDS: INSULIN REGULAR, HUMAN 100 UNIT/ML 3 ML VIAL SQ PRN ×4 (05:32→23:03)
--- NOTE | 2022-08-25 05:34 | NUR ---
telemarketing sales representative notes blood sugar for 6am is 155mg/dl 2 units of regular iinsulin given per sliding scale.
--- NOTE | 2022-08-25 07:05 | NUR ---
SMALL BOAT ENGINEER OPENING NOTES. RECEIVED PT FOR CONTINUITY OF CARE. PATIENT A/OX1 IN NO S/SX OF ACUTE DISTRESS AT THIS TIME; CURRENTLY ON MECHANICAL VENT; SETTING PRESCRIBED, WITH 02 SAT >95% AT THIS TIME. IV ACCESS RFA #20G PATENT, INTACT AND FLUSHING WELL. HD CATH ON RIGHT UPPER ARM PERMACATH . GTUBE FEEDING NEPHRO 75CC /HR INFUSING WELL NO RESIDUAL NOTED. RUNNING PRESCRIBED. WILL ENSURE SAFETY MEASURES WITHIN THE SHIFT. PATIENT BED ALARM IS ON. HEAD OF BED ELEVATED. BED IS LOCKED, IN LOWEST POSITION AND SIDE RAILS UP. CALL LIGHT WITHIN REACH OF THE PATIENT. APPLICABLE ISOLATION PRECAUTIONS IN PLACE. WILL CONTINUE TO MONITOR AND REASSESS FOR ANY CHANGES AND WILL CARRY OUT ANY ONGOING AND ACTIVE MD ORDER.
[2022-08-25 07:41] LABS: CALCIUM, SERUM 10.7 mg/dL (8.5-10.1); CARBON DIOXIDE 26 mmol/L (21-32); CHLORIDE 93 mmol/L (98-107); CREATININE 3.4 mg/dL (0.6-1.3); GLUCOSE 137 mg/dL (74-106); POTASSIUM 3.9 mmol/L (3.5-5.1); SODIUM SERUM 131 mmol/L (136-145); UREA NITROGEN, BLOOD 60 mg/dL (7-18)
[2022-08-25 08:00] VITALS: BP 141/54
[2022-08-25] MEDS: LEVOTHYROXINE SODIUM 88 MCG TABLET GT SCH (08:25)
[2022-08-25] MEDS: PANTOPRAZOLE 40 MG/PACK PACK GT SCH (08:45)
[2022-08-25] MEDS: ASPIRIN 81 MG TAB.CHEW GT SCH (08:45)
[2022-08-25] MEDS: CHLORHEXIDINE GLUCONATE 15 ML UDC MM SCH ×2 (08:45→21:21)
[2022-08-25] MEDS: DOCUSATE SODIUM LIQ 100 MG/10 ML UDC GT SCH (08:45)
[2022-08-25] MEDS: VIT B CMPLX 3/FA/VIT C/BIOTIN 1 TAB TABLET GT SCH (08:45)
[2022-08-25] MEDS: CARVEDILOL 3.125 MG TABLET GT SCH ×2 (08:46→21:21)
[2022-08-25] MEDS: PROSOURCE / PROSTAT (PYXIS) 30 ML UDC GT SCH (08:46)
--- NOTE | 2022-08-25 09:37 | NUR ---
[facility]
[2022-08-25] MEDS: VITAMINS A AND D 56.7 GM TUBE TP SCH (09:45)
[2022-08-25] MEDS: MUPIROCIN OINT 2% 22 GM TUBE NS SCH ×2 (09:45→21:24)
[2022-08-25] MEDS: ACETAMINOPHEN 650 MG/20.3 ML UDC GT PRN (09:54)
[2022-08-25] MEDS: HYDROGEL DRESSING 90 GM TUBE TP SCH (13:20)
[2022-08-25 15:51] VITALS: BP 88/50
--- NOTE | 2022-08-25 15:53 | NUR ---
sbp 80's ambulance placed to will call dr. samuels notified.
[2022-08-25] MEDS: MIDODRINE HCL (5MG) 5 MG TABLET GT PRN (16:09)
--- NOTE | 2022-08-25 16:11 | NUR ---
DR.. PORTILLO NOTIFIED PT. SBP 80'S ,PER MD WILL GIVE PRN MIDODRINE FOR NOW ,NO BOLUS .
[2022-08-25 16:13] VITALS: BP 80/43
--- NOTE | 2022-08-25 19:30 | NUR ---
RN NOTES RECEIVED PT FOR CONTINUITY OF CARE. PATIENT A/OX0 IN NO S/SX OF ACUTE DISTRESS AT THIS TIME; CURRENTLY ON MECHANICAL VENT; SETTING PRESCRIBED, WITH 02 SAT >95% AT THIS TIME. NO IV ACCESS ACCESS AT THIS TIME; WILL ATTEMPT TO INSERT WITHIN THE SHIFT. GTUBE FEEDING RUNNING PRESCRIBED. WILL ENSURE SAFETY MEASURES WITHIN THE SHIFT. PATIENT BED ALARM IS ON. HEAD OF BED ELEVATED. BED IS LOCKED, IN LOWEST POSITION AND SIDE RAILS UP. CALL LIGHT WITHIN REACH OF THE PATIENT.WILL CONTINUE TO MONITOR AND REASSESS FOR ANY CHANGES AND WILL CARRY OUT ANY ONGOING AND ACTIVE MD ORDER.
[2022-08-25 20:00] VITALS: BP 144/65
--- NOTE | 2022-08-25 20:29 | NUR ---
COMMISSARY SUPERINTENDENT CLOSING NOTE PATIENT A/OX1 IN NO S/SX OF ACUTE DISTRESS AT THIS TIME; CURRENTLY ON MECHANICAL VENT; SETTING PRESCRIBED, WITH 02 SAT 100% AT THIS TIME. IV ACCESS RH#22G PATENT, INTACT AND FLUSHING WELL. HD CATH ON RIGHT UPPER ARM PERMACATH . GTUBE FEEDING NEPHRO 75CC /HR INFUSING WELL NO RESIDUAL NOTED. RUNNING PRESCRIBED. ALL SAFETY MEASURES IN PLACE. PATIENT BED ALARM IS ON. HEAD OF BED ELEVATED. BED IS LOCKED, IN LOWEST POSITION AND SIDE RAILS UP. CALL LIGHT WITHIN REACH OF THE PATIENT. APPLICABLE ISOLATION PRECAUTIONS IN PLACE. 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
[2022-08-25] MEDS: OLANZAPINE 2.5 MG TABLET GT SCH (21:21)
[2022-08-25] MEDS: INSULIN GLARGINE, 100 UNIT/ML CARTRIDGE SQ SCH (23:02)
[2022-08-26] VITALS: BP 150/73
[2022-08-26] MEDS: ACETAMINOPHEN 650 MG/20.3 ML UDC GT PRN (00:42)
[2022-08-26] MEDS: ALBUTEROL FS 2.5 MG/3 ML VIAL.NEB IH SCH ×4 (01:48→20:02)
[2022-08-26 04:00] VITALS: BP 140/68
--- NOTE | 2022-08-26 04:00 | NUR ---
RN NOTES PATIENT REMAINED TO BE IN NO SIGNS OF ACUTE RESPIRATORY DISTRESS , VITAL SIGNS STABLE AT THIS TIME. REGULAR TURNING AND REPOSITIONING DONE, SUCTIONING DONE, WOUND CARE AND AM PATIENT CARE RENDERED WILL CONTINUE TO MONITOR AND REASSESS FOR ANY CHANGES THROUGHOUT THE SHIFT.
[2022-08-26] MEDS: BLOOD SUGAR DIAGNOSTIC 1 EACH STRIP IN SCH ×4 (05:33→23:02)
[2022-08-26] MEDS: INSULIN REGULAR, HUMAN 100 UNIT/ML 3 ML VIAL SQ PRN ×4 (05:34→23:03)
--- NOTE | 2022-08-26 06:40 | NUR ---
RN CLOSING NOTE: PATIENT REMAINS IN ROOM IN NO SIGNS OF RESPIRATORY DISTRESS, PATIENT STILL ON MECH VENT; SETTINGS PRESCRIBED;TOLERATING WELL SATURATING @ >95% SP02. SAFETY MEASURES IMPLEMENTED, BED IN LOWEST POSITION, LOCKED, SIDE RAILS UP, CALL LIGHT WITHIN REACH. ALL NEEDS AND ORDERS ADDRESSED DURING THE SHIFT. IV ACCESS MAINTAINED INTACT, SECURED AND FLUSHING WELL. ALL DUE MEDS GIVEN ORDERED & SCHEDULED ; PATIENT TOLERATED WELL. PATIENT KEPT CLEAN AND COMFORTABLE WITHIN THE SHIFT. PATIENT ENDORSED TO INCOMING SHIFT RN WITH STABLE VITAL SIGN AND FOR CONTINUITY OF CARE.
--- NOTE | 2022-08-26 07:15 | NUR ---
telephone operator opening note patient is bedbound. patient is alert and oriented x1. patient is nonverbal with mechanical ventilator with ordered settings saturating at 100%. patient has iv access on left wrist. iv intact, patent and flushing well. kept clean and dry.all needs met. turned and reposition. patient has bilateral soft wrist restraints. no skin breakdown or skin circulation noted at this time. all safety measures in place. call light within reach, bed locked at lowest position. side rails up x2.
[2022-08-26 08:00] VITALS: BP 169/65
[2022-08-26] MEDS: ASPIRIN 81 MG TAB.CHEW GT SCH (08:48)
[2022-08-26] MEDS: DOCUSATE SODIUM LIQ 100 MG/10 ML UDC GT SCH (08:48)
[2022-08-26] MEDS: CARVEDILOL 3.125 MG TABLET GT SCH ×2 (08:49→21:39)
[2022-08-26] MEDS: PANTOPRAZOLE 40 MG/PACK PACK GT SCH (08:49)
[2022-08-26] MEDS: VIT B CMPLX 3/FA/VIT C/BIOTIN 1 TAB TABLET GT SCH (08:49)
[2022-08-26] MEDS: CHLORHEXIDINE GLUCONATE 15 ML UDC MM SCH ×2 (08:50→21:39)
[2022-08-26] MEDS: LEVOTHYROXINE SODIUM 88 MCG TABLET GT SCH (08:53)
[2022-08-26] MEDS: PROSOURCE / PROSTAT (PYXIS) 30 ML UDC GT SCH (08:53)
[2022-08-26] MEDS: VITAMINS A AND D 56.7 GM TUBE TP SCH (09:10)
[2022-08-26] MEDS: HYDROGEL DRESSING 90 GM TUBE TP SCH (09:11)
[2022-08-26 11:49] LABS: CALCIUM, SERUM 11.2 mg/dL (8.5-10.1); CARBON DIOXIDE 21 mmol/L (21-32); CHLORIDE 89 mmol/L (98-107); CREATININE 4.8 mg/dL (0.6-1.3); GLUCOSE 234 mg/dL (74-106); POTASSIUM 4.4 mmol/L (3.5-5.1); SODIUM SERUM 125 mmol/L (136-145)
[2022-08-26 11:59] LABS: UREA NITROGEN, BLOOD 93 mg/dL (7-18)
[2022-08-26 12:00] VITALS: BP 127/64
[2022-08-26] MEDS: MUPIROCIN OINT 2% 22 GM TUBE NS SCH ×2 (15:00→21:40)
[2022-08-26 16:00] VITALS: BP 143/69
--- NOTE | 2022-08-26 19:32 | NUR ---
RN OPENING NOTES: RECEIVED PATIENT IN BED, A/O X1, NON-VERBAL. ON TRACH TO [facility] VENT SETTINGS AND PT TOLERATED WELL. IV ACCESS ON LT HAND#22G INTACT AND PATENT. NO S/S OF INFILTRATIONS. NO FACIAL GRIMACING NOTED. NO ACUTE DISTRESS. CHAHAL CATHETER IN PLACE. DRAING BY GRAVITY. ALL SAFETY MEASURES IN PLACE. BED IN LOWEST POSITION AND LOCKED. SIDE RAILS UP X3, PLACE CALL LIGHT WITHIN REACH. WILL CONTINUE TO MONITOR
--- NOTE | 2022-08-26 19:48 | NUR ---
telecom analyst closing note patient is bedbound. patient is alert and oriented x1. patient is nonverbal with mechanical ventilator with ordered settings saturating at 100%. patient has iv access on left wrist. iv intact, patent and flushing well. kept clean and dry.all needs met and medications given. turned and repositioned. patient has bilateral soft wrist restraints. no skin breakdown or skin circulations noted at this time. all safety measures in place. call light within reach, bed locked at lowest position. side rails up x2.
[2022-08-26 20:00] VITALS: BP 161/71
[2022-08-26] MEDS: OLANZAPINE 2.5 MG TABLET GT SCH (21:39)
[2022-08-26] MEDS: INSULIN GLARGINE, 100 UNIT/ML CARTRIDGE SQ SCH (22:56)
--- NOTE | 2022-08-26 23:09 | NUR ---
RN NOTES: PT'S BLOOD SUGAR 211. 15 UNITS OF LANTUS AND 6 UNITS OF REGULAR INSULIN GIVEN. NO S/S OF HYPER/HYPOGLYCEMIA. WILL CONTINUE TO MONITOR
[2022-08-27] VITALS: BP 157/64
[2022-08-27] MEDS: NEPRO 1,000 ML BOTTLE GT PRN (01:13)
[2022-08-27] MEDS: ALBUTEROL FS 2.5 MG/3 ML VIAL.NEB IH SCH ×4 (01:29→20:14)
[2022-08-27 04:00] VITALS: BP 137/77
[2022-08-27] MEDS: BLOOD SUGAR DIAGNOSTIC 1 EACH STRIP IN SCH ×3 (05:47→18:10)
[2022-08-27] MEDS: INSULIN REGULAR, HUMAN 100 UNIT/ML 3 ML VIAL SQ PRN ×3 (05:48→18:12)
--- NOTE | 2022-08-27 05:49 | NUR ---
RN NOTES: PT'S BLOOD SUGAR 104. NO COVERAGE NEEDED. NO S/S OF HYPER/HYPOGLYCEMIA. WILL CONTINUE TO MONITOR
--- NOTE | 2022-08-27 06:44 | NUR ---
RN CLOSING NOTES: PATIENT IN BED, A/O X1, NON-VERBAL. ON TRACH TO [facility] VENT SETTINGS AND PT TOLERATED WELL. O2 SAT 100%. IV ACCESS ON LT HAND#22G INTACT AND PATENT. NO S/S OF INFILTRATIONS. NO FACIAL GRIMACING NOTED. NO ACUTE DISTRESS. GTUBE FEEDING WELL TOLERATED. ON NEPRO AT 75CC/HR X16 HOURS. OFF AT THIS MOMENT. WILL START AT 10 AM. CHAHAL CATHETER IN PLACE. DRAINING BY GRAVITY. ALL DUE MEDS GIVEN ORDERED. ALL SAFETY MEASURES IN PLACE. BED IN LOWEST POSITION AND LOCKED. SIDE RAILS UP X3, PLACE CALL LIGHT WITHIN REACH. WILL ENDORSE TO MORNING SHIFT NURSE.
[2022-08-27 07:04] LABS: CALCIUM, SERUM 11.3 mg/dL (8.5-10.1); CARBON DIOXIDE 22 mmol/L (21-32); CHLORIDE 90 mmol/L (98-107); CREATININE 5.5 mg/dL (0.6-1.3); GLUCOSE 106 mg/dL (74-106); POTASSIUM 4.3 mmol/L (3.5-5.1); SODIUM SERUM 129 mmol/L (136-145)
--- NOTE | 2022-08-27 07:25 | NUR ---
RN OPENING NOTE RECEIVED PATIENT IN BED. PATIENT IS ALERT AND ORIENTED X1. PATIENT IS NONVERBAL WITH TRACH ON MECHANICAL SETTINGS TOLERATING WELL. PATIENT SATURATING AT 100%.PATIENT HAS IV ACCESS ON LEFT HAND 22 GAUGE INTACT AND PATENT. NO SIGNS OF SYMPTOMS OF PAIN, DISCOMFORT OR SOB. PATIENT HAS GTUBE FEEDING RUNNING NEPHRO 75 CC/HRX16 HOURS. PATIENT ON BILATERAL SOFT WRIST RESTRAINTS. NO SKIN BREAKDOWN OR CIRCULATION ISSUES NOTED AT THIS TIME. NO RESIDUAL VOLUME NOTED. PATIENT HAS CHAHAL CATHETER YELLOW COLOR DRAINING TO GRAVITY. ALL SAFETY MEASURES IN PLACE. BED IN LOWEST POSITION AND LOCKED. SIDE RAILS UP X3.
[2022-08-27 07:47] LABS: UREA NITROGEN, BLOOD 116 mg/dL (7-18)
[2022-08-27 08:00] VITALS: BP 144/62
[2022-08-27] MEDS: CARVEDILOL 3.125 MG TABLET GT SCH ×2 (09:00→21:10)
--- NOTE | 2022-08-27 09:30 | NUR ---
RN NOTE PER DIALYSIS NURSE HOLD CARVEDLOL DUE TO LOW BP
[2022-08-27] MEDS: HYDROGEL DRESSING 90 GM TUBE TP SCH (09:55)
[2022-08-27] MEDS: VITAMINS A AND D 56.7 GM TUBE TP SCH (09:55)
[2022-08-27] MEDS: MIDODRINE HCL (5MG) 5 MG TABLET GT PRN (09:58)
--- NOTE | 2022-08-27 10:00 | NUR ---
RN NOTE PER DIALYSIS NURSE, GIVE MIDODRINE DURING DIALYSIS DUE TO LOW BP
--- NOTE | 2022-08-27 10:06 | NUR ---
patient currently gettinfg dialysis
[2022-08-27 12:00] VITALS: BP_SYST 101; BP_SYST 116; BP_DIAS 51; BP_DIAS 72
--- NOTE | 2022-08-27 12:00 | NUR ---
AUTOMOBILE SERVICE ADVISOR NOTE 0900 MEDICATIONS GIVEN LATER DUE TO PATIENT GETTING DIALYSIS
[2022-08-27] MEDS: PROSOURCE / PROSTAT (PYXIS) 30 ML UDC GT SCH (12:38)
[2022-08-27] MEDS: CHLORHEXIDINE GLUCONATE 15 ML UDC MM SCH ×2 (12:38→21:06)
[2022-08-27] MEDS: PANTOPRAZOLE 40 MG/PACK PACK GT SCH (12:38)
[2022-08-27] MEDS: VIT B CMPLX 3/FA/VIT C/BIOTIN 1 TAB TABLET GT SCH (12:38)
[2022-08-27] MEDS: DOCUSATE SODIUM LIQ 100 MG/10 ML UDC GT SCH (12:38)
[2022-08-27] MEDS: ASPIRIN 81 MG TAB.CHEW GT SCH (12:38)
[2022-08-27] MEDS: LEVOTHYROXINE SODIUM 88 MCG TABLET GT SCH (12:40)
[2022-08-27] MEDS ORDERED: VANCOMYCIN 1 GM in IV D5W 250 ML IV PRN (13:00)
[2022-08-27] MEDS: MUPIROCIN OINT 2% 22 GM TUBE NS SCH ×2 (13:02→21:11)
--- NOTE | 2022-08-27 13:30 | NUR ---
DIALYSIS NURSE TOOK OUT 1 L. PATIENT TOLERATED WELL.
--- NOTE | 2022-08-27 14:00 | NUR ---
RN NOTE SPOKE WITH PHARMACY TO GIVE IV ANTIBIOTICS VANCOMYCIN AND GENTAMICIN POST HEMODIALYSIS
[2022-08-27] MEDS: GENTAMICIN 80 MG in IV D5W 50 ML IV PRN (14:17)
[2022-08-27 16:00] VITALS: BP 121/54
[2022-08-27] MEDS: ACETAMINOPHEN 650 MG/20.3 ML UDC GT PRN (17:52)
--- NOTE | 2022-08-27 18:40 | NUR ---
RN NOTE PATIENT LEFT IV SITE SWOLLEN. REMOVED IV SITE. REINSERTED IV SITE ON RIGHT FINGER 24 GAUGE. IV INTACT, PATENT AND FLUSHING WELL.
--- NOTE | 2022-08-27 19:30 | NUR ---
PATIENT IN BED AWAKE. A/O X1. PATIENT IS NONVERBAL WITH TRACH ON MECHANICAL SETTINGS ORDERED, TOLERATING WELL. PATIENT SATURATING AT 100%. PATIENT HAS IV ACCESS ON RIGHT INDEX FINGER 24 GAUGE INTACT AND PATENT. NO SIGNS OF SYMPTOMS OF PAIN, DISCOMFORT OR SOB. PATIENT HAS GTUBE FEEDING INFUSING NEPHRO AT 75 CC/HRX16 HOURS. PATIENT ON BILATERAL SOFT WRIST RESTRAINTS. FC DRAINING CLEAR YELLOW COLORED URINE. SAFETY PRECAUTIONS IN PLACE. HEAD OF BED SLIGHTLY ELEVATED, BED LOW, SIDE RAILS UP X2, BED ALARM ON, CALL LIGHT WITHIN REACH. WILL CONTINUE PLAN OF CARE.
[2022-08-27 20:00] VITALS: BP 110/77
--- NOTE | 2022-08-27 20:00 | NUR ---
RN CLOSING NOTE PATIENT IN BED. PATIENT IS ALERT AND ORIENTED X1. PATIENT IS ASLEEP, BUT EASILY AROUSABLE.PATIENT IS NONVERBAL WITH TRACH ON MECHANICAL SETTINGS TOLERATING WELL. PATIENT SATURATING AT 100%.PATIENT HAS IV ACCESS ON RIGHT FINGER 24 GAUGE INTACT AND PATENT. NO SIGNS OF SYMPTOMS OF PAIN, DISCOMFORT OR SOB. PATIENT HAS GTUBE FEEDING RUNNING NEPHRO 75 CC/HRX16 HOURS. PATIENT ON BILATERAL SOFT WRIST RESTRAINTS. NO SKIN BREAKDOWN OR CIRCULATION ISSUES NOTED AT THIS TIME.RELEASED RESTRAINTS TO PROMOTE CIRCULATION. PATIENT HAS SKIN TEAR ON RIGHT HAND AND LEFT FOOT. APPLIED MEPILEX. KEPT CLEAN AND DRY. NO RESIDUAL VOLUME NOTED. PATIENT HAS CHAHAL CATHETER YELLOW COLOR DRAINING TO GRAVITY. ALL SAFETY MEASURES IN PLACE. BED IN LOWEST POSITION AND LOCKED.
[2022-08-27] MEDS: OLANZAPINE 2.5 MG TABLET GT SCH (21:06)
[2022-08-27] MEDS: INSULIN GLARGINE, 100 UNIT/ML CARTRIDGE SQ SCH (21:18)
[2022-08-28] VITALS: BP 139/73
[2022-08-28] MEDS: BLOOD SUGAR DIAGNOSTIC 1 EACH STRIP IN SCH ×3 (00:24→13:04)
[2022-08-28] MEDS: INSULIN REGULAR, HUMAN 100 UNIT/ML 3 ML VIAL SQ PRN ×3 (00:27→13:08)
[2022-08-28] MEDS: ALBUTEROL FS 2.5 MG/3 ML VIAL.NEB IH SCH ×3 (02:43→13:51)
[2022-08-28 04:00] VITALS: BP 127/69
--- NOTE | 2022-08-28 06:41 | NUR ---
PATIENT IN BED ASLEEP,BUT CAN EASILY BE AWAKEN. A/O X1. PATIENT IS NONVERBAL WITH TRACH ON MECHANICAL SETTINGS ORDERED, TOLERATING WELL. PATIENT SATURATING AT 96% TO 97%. PATIENT HAS IV ACCESS ON RIGHT INDEX FINGER G#24, INTACT AND PATENT. NO S/SX OF PAIN, DISCOMFORT OR SOB. PATIENT ON BILATERAL SOFT WRIST RESTRAINTS. NO SKIN BREAKDOWN OR CIRCULATION ISSUES NOTED AT THIS TIME.RELEASED RESTRAINTS TO PROMOTE CIRCULATION. PATIENT HAS SKIN TEAR ON RIGHT HAND AND LEFT FOOT. APPLIED MEPILEX. KEPT CLEAN AND DRY. FC DRAINING CLEAR YELLOW COLORED URINE. SAFETY PRECAUTIONS MAINTAINED. HEAD OF BED SLIGHTLY ELEVATED, BED LOW, SIDE RAILS UP X2, BED ALARM ON, CALL LIGHT WITHIN REACH. WILL ENDORSE TO NEXT NURSE ON DUTY FOR CONTINUITY OF CARE.
--- NOTE | 2022-08-28 07:00 | NUR ---
RN OPENING NOTE RECEIVED PT IN BED, A0X1. BREATHING ON MECHANICAL VENT, SETTINGS ORDERED, TOLERATING WELL. PATIENT SATURATING AT 96%. PATIENT HAS IV ACCESS ON RIGHT INDEX FINGER G#24, INTACT AND PATENT. NO S/SX OF PAIN, DISCOMFORT OR SOB. PATIENT ON BILATERAL SOFT WRIST RESTRAINTS. NO SKIN BREAKDOWN OR CIRCULATION ISSUES NOTED AT THIS TIME. FC DRAINING CLEAR YELLOW COLORED URINE. TUBE FEEDING NEPROAT 75ML/HR. TOLERATING WELL. ALL SAFETY MEASURES IN PLACE. HEAD OF BED ELEVATED. BED LOW, SIDE RAILS UP X2, BED ALARM ON, CALL LIGHT WITHIN REACH. WILL CONTINUE TO MONITOR THROUGHOUT SHIFT.
[2022-08-28 07:18] LABS: CALCIUM, SERUM 9.7 mg/dL (8.5-10.1); CARBON DIOXIDE 23 mmol/L (21-32); CHLORIDE 89 mmol/L (98-107); CREATININE 3.7 mg/dL (0.6-1.3); GLUCOSE 144 mg/dL (74-106); POTASSIUM 4.6 mmol/L (3.5-5.1); SODIUM SERUM 126 mmol/L (136-145); UREA NITROGEN, BLOOD 66 mg/dL (7-18)
[2022-08-28 08:00] VITALS: BP 127/59
[2022-08-28] MEDS: LEVOTHYROXINE SODIUM 88 MCG TABLET GT SCH (08:24)
[2022-08-28] MEDS: PANTOPRAZOLE 40 MG/PACK PACK GT SCH (10:34)
[2022-08-28] MEDS: PROSOURCE / PROSTAT (PYXIS) 30 ML UDC GT SCH (10:34)
[2022-08-28] MEDS: DOCUSATE SODIUM LIQ 100 MG/10 ML UDC GT SCH (10:34)
[2022-08-28] MEDS: CARVEDILOL 3.125 MG TABLET GT SCH (10:35)
[2022-08-28] MEDS: VIT B CMPLX 3/FA/VIT C/BIOTIN 1 TAB TABLET GT SCH (10:35)
[2022-08-28] MEDS: ASPIRIN 81 MG TAB.CHEW GT SCH (10:35)
[2022-08-28] MEDS: CHLORHEXIDINE GLUCONATE 15 ML UDC MM SCH (10:35)
[2022-08-28] MEDS: NEPRO 1,000 ML BOTTLE GT PRN (10:36)
[2022-08-28] MEDS: ACETAMINOPHEN 650 MG/20.3 ML UDC GT PRN (11:51)
[2022-08-28] MEDS: HYDROGEL DRESSING 90 GM TUBE TP SCH (11:58)
[2022-08-28] MEDS: MUPIROCIN OINT 2% 22 GM TUBE NS SCH (11:58)
[2022-08-28] MEDS: VITAMINS A AND D 56.7 GM TUBE TP SCH (11:59)
[2022-08-28 12:00] VITALS: BP 123/54
--- NOTE | 2022-08-28 15:15 | NUR ---
RN NOTE PATIENT DISCHARGED TO [facility]IA [facility] WITH [facility]UL[facility] CREW. REPORT WAS GIVEN TO HUGO. PATIENT VS IN STABLE CONDITION: BP: 122/51, 02 SAT OF 97%, HR: 67. TEMP OF 98.7. PT REMAINS IN VENT, CHAHAL CATHETER IN PLACE. IV SITE ON LFA #22G SL, PATENT AND FLUSHED, WITH NO SIGNS OF BLEEDING. G-TUBE INTACT AND CLEAN. HD CATHETER SITE CLEAN WITH NO S/S OF INFECTION OR BLEEDING. PT BELONGINGS WENT WITH AMBULANCE CREW. ID BAND AND TELE MONITOR REMOVED. CHARGE NURSEAWARE OF DISCHARGE.
== END 2022-08-28 17:47 | DRG 264 ==
LOC: ER 13:31 → TELE1 15:30
PROVIDERS: ADMIT Nurse Practitioner Acute Care; ATTEND Internal Medicine
PROC: 5A1955Z Respiratory Ventilation, Greater than 96 Consecutive Hours (ICD-10-PCS; principal; 2022-08-20)
PROC: 5A1D70Z Performance of Urinary Filtration, Intermittent, Less than 6 Hours Per Day (ICD-10-PCS; 2022-08-21)
PROC: 0JB90ZZ Excision of Buttock Subcutaneous Tissue and Fascia, Open Approach (ICD-10-PCS; 2022-08-22)
DX: T82.7XXA Infection and inflammatory reaction due to other cardiac and vascular devices, implants and grafts, initial encounter (principal); A41.50 Gram-negative sepsis, unspecified; J96.20 Acute and chronic respiratory failure, unspecified whether with hypoxia or hypercapnia; L89.323 Pressure ulcer of left buttock, stage 3; N18.6 End stage renal disease; R65.21 Severe sepsis with septic shock; R53.2 Functional quadriplegia; N39.0 Urinary tract infection, site not specified; G93.40 Encephalopathy, unspecified; Z99.11 Dependence on respirator [ventilator] status; I12.0 Hypertensive chronic kidney disease with stage 5 chronic kidney disease or end stage renal disease; D68.59 Other primary thrombophilia; I69.351 Hemiplegia and hemiparesis following cerebral infarction affecting right dominant side; J90 Pleural effusion, not elsewhere classified; G93.49 Other encephalopathy; Z20.822 Contact with and (suspected) exposure to COVID-19; E11.22 Type 2 diabetes mellitus with diabetic chronic kidney disease; E78.5 Hyperlipidemia, unspecified; F03.90 Unspecified dementia, unspecified severity, without behavioral disturbance, psychotic disturbance, mood disturbance, and anxiety; E03.9 Hypothyroidism, unspecified; Z99.2 Dependence on renal dialysis; Z93.1 Gastrostomy status; Z88.6 Allergy status to analgesic agent; R13.10 Dysphagia, unspecified; Z88.1 Allergy status to other antibiotic agents; Z88.5 Allergy status to narcotic agent; Z88.2 Allergy status to sulfonamides; Z88.8 Allergy status to other drugs, medicaments and biological substances; Z79.4 Long term (current) use of insulin; Z79.51 Long term (current) use of inhaled steroids; Z79.82 Long term (current) use of aspirin; M20.41 Other hammer toe(s) (acquired), right foot; M20.42 Other hammer toe(s) (acquired), left foot; J44.9 Chronic obstructive pulmonary disease, unspecified; E87.5 Hyperkalemia; I95.3 Hypotension of hemodialysis; G93.89 Other specified disorders of brain; M89.8X9 Other specified disorders of bone, unspecified site; D63.8 Anemia in other chronic diseases classified elsewhere; Z74.09 Other reduced mobility; Z86.14 Personal history of Methicillin resistant Staphylococcus aureus infection; L89.896 Pressure-induced deep tissue damage of other site; M62.50 Muscle wasting and atrophy, not elsewhere classified, unspecified site; Y84.8 Other medical procedures as the cause of abnormal reaction of the patient, or of later complication, without mention of misadventure at the time of the procedure; Y92.129 Unspecified place in nursing home as the place of occurrence of the external cause
CPT/HCPCS: 31720; 36415; 36600; 70450-TC; 71045-TC; 80048-TC; 80076-TC; 80170-TC; 80202-TC; 81001; 82140-TC; 82803-TC; 82962-TC; 83605-TC; 83735-TC; 84100-TC; 84443-TC; 85025-TC; 85730-TC; 86706; 87040-TC; 87081-TC; 87086-TC; 87186-TC; 87340; 90935-TC; 94002-TC; 94003-TC; 94760-TC; 94762-TC; 94799-TC; 99082-TC; A4216; A4623; A6248; A6253; A6403; A7526; G0378; G0480; J0692; J1580; J1815; J2270; J3370; J7030; J7040; J7050; J7060; P9047

== ENCOUNTER 2022-08-29 18:14 | Inpatient (IN) | payer MEDICARE, OTHER ==
[~2022-08-29] VITALS: Ht 165.1 cm; Wt 72.7 kg
[~2022-08-29 18:14] MED LIST changes: -DAPT500V2 IV; -EPOE40007 IJ; +INSU100V11 SQ; -INSU100V39 SQ; +PETR113O TP; -POVI3780 TP; -SEVE0.8P3 GT; -ZINC56.713 TP
--- NOTE | 2022-08-29 18:30 | NUR ---
howie from dialysis center bp high. On vent and trach. connected to the monitor and pulse ox. Kept comfortable. will continue to monitor accordingly.
--- NOTE | 2022-08-29 18:30 | NUR ---
RT Trach patient (SHILEY 6XLT proximal) received on vent. Current settings: AC 550 30% 18 +5 given by [employer] RT. Vent plugged into red outlet with alarms on and audible. Ambu bag and back up trach at bedside. Trach secured and patent. No SOB or respiratory distress noted at this time.
[2022-08-29] MEDS ORDERED: ACETAMINOPHEN 650 MG/SUPP.RECT RC ONE ×2 (19:00→19:14)
[2022-08-29 19:36] LABS: ALBUMIN 2.5 g/dL (3.4-5.0); ALKALINE PHOSPHATASE 175 U/L (46-116); ASPARTATE AMINOTRANSFERASE 25 U/L (15-37); BILIRUBIN,DIRECT 0.1 mg/dL (0.0-0.2); BILIRUBIN,TOTAL 0.4 mg/dL (0.2-1.0); CALCIUM, SERUM 9.5 mg/dL (8.5-10.1); CARBON DIOXIDE 20 mmol/L (21-32); CHLORIDE 92 mmol/L (98-107); CREATININE 3.5 mg/dL (0.6-1.3); GLUCOSE 131 mg/dL (74-106); POTASSIUM 4.2 mmol/L (3.5-5.1); SODIUM SERUM 128 mmol/L (136-145); TOTAL PROTEIN, SERUM 8.8 g/dL (6.4-8.2); UREA NITROGEN, BLOOD 62 mg/dL (7-18)
--- NOTE | 2022-08-29 19:45 | NUR ---
RECEIVED REPORT FROM AM SHIFT TIMOTHY. PATIENT CAME FROM DIALYSIS UNIT DUE TO HIGH BP DURING HD. RECEIVED PATIENT WITH TRACHE ATTACHED TO VENT ON AC MODE, TV 550, FiO2 30%, RATE 18, PEEP 5. PATIENT HAS MULTIPLE SCRATCHES ON HER BODY. CAME WITH WRAPPED GAUZE TO HER RIGHT HAND, WITH UMBILICAL HERNIA, WITH MASD ON GENITAL AREA. WITH LEFT SUBCLAVIAN HD ACCESS, WITH DEVICE ON HER RIGHT HIP. HAND BULLDOZER VINNY MADE AWARE. PATIENT IS SATURATING WELL AT 96%. VITALS CHECKED
--- NOTE | 2022-08-29 20:00 | NUR ---
PERINEAL CARE DONE.
[2022-08-29 20:12] LABS: ALANINE AMINOTRANSFERASE 15 U/L (12-78)
--- NOTE | 2022-08-29 20:22 | NUR ---
[employer] SALES REPRESENTATIVE AT PT'S BEDSIDE FOR BLOOD REDRAW
--- NOTE | 2022-08-29 20:26 | NUR ---
pt have no hagen cath. Dr. Corbett was made aware and cancelled. Urine order
[2022-08-29 20:29] LABS: THYROID STIMULATING HORMONE 8.705 uIU/mL (0.358-3.74)
[2022-08-29] MEDS ORDERED: IV NS 0.9% 500 ML BAG IV ONE (20:30)
--- NOTE | 2022-08-29 20:45 | NUR ---
CRITICAL RESULT RECEIVED FOR PROCALCITONIN. DR COX INFORMED
[2022-08-29] MEDS ORDERED: VANCOMYCIN 1 GM in IV D5W 250 ML IV ONE (21:00)
[2022-08-29] MEDS ORDERED: PIPERACILLIN /TAZOBACTAM 3.375 G in IV D5W 50 ML IV ONE (21:00)
[2022-08-29 21:10] LABS: BASOPHILS % (AUTO) 0.2 % (0.0-2.0); EOSINOPHILS % (AUTO) 3.5 % (0.0-6.0); HEMATOCRIT 28 % (33-45); HEMOGLOBIN 8.7 g/dL (11.5-14.8); LYMPHOCYTES # (AUTO) 0.9 K/uL (0.8-4.8); LYMPHOCYTES % (AUTO) 4.3 % (20.0-44.0); MEAN CORPUSCULAR HGB CONC 31 g/dl (31.0-36.0); MEAN CORPUSCULAR VOLUME 95 fL (82-100); MONOCYTES # (AUTO) 0.9 K/uL (0.1-1.30); MONOCYTES % (AUTO) 4.3 % (2.0-12.0); NEUTROPHILS % (AUTO) 87.7 % (43.0-81.0); PLATELET COUNT (AUTO) 391 K/uL (150-450); RED BLOOD CELL COUNT(AUTO) 2.93 MIL/uL (4.0-5.2); WHITE BLOOD COUNT (AUTO) 21.7 K/uL (4.3-11.0)
[2022-08-29] MEDS ORDERED: PIPERACILLIN /TAZOBACTAM 3.375 G VIAL IV ONE (21:33)
[2022-08-29] MEDS ORDERED: LORAZEPAM INJ 2 MG/ML VIAL IV PRN (22:00)
[2022-08-29] MEDS ORDERED: ALBUTEROL FS 2.5 MG/3 ML VIAL.NEB NEB PRN (22:00)
[2022-08-29] MEDS ORDERED: ONDANSETRON HCL/PF 4 MG/2 ML VIAL IVP PRN (22:00)
[2022-08-29] MEDS ORDERED: DEXTROSE 50%-WATER 50 ML DISP.SYRIN IV PRN (22:00)
--- NOTE | 2022-08-29 22:53 | NUR ---
INFLUENZA SWAB DONE AND SENT TO LAB
[2022-08-30] MEDS: BLOOD SUGAR DIAGNOSTIC 1 EACH STRIP IN SCH ×5 (00:15→23:58)
--- NOTE | 2022-08-30 00:22 | NUR ---
ROOM 327-1
--- NOTE | 2022-08-30 01:22 | NUR ---
REPORT GIVEN TO SENG MINOR
[2022-08-30 02:00] VITALS: BP 128/70
--- NOTE | 2022-08-30 02:10 | NUR ---
RN ADMITTING NOTE PATIENT BEING ADMITTED FROM ER FOR SEPSIS, PATIENT CAME FROM DIALYSIS CENTER FOR HIGH BP. [facility] TV 550, FIO2 30%, RR 18, PEEP 5. PATIENT WEARS A SHILEY 6 XLT. TOLERATING WELL, SATTING 98-100%. PATIENT'S TELE MONITOR READS ST 111 WITH 1ST DEGREE BLOCK. PATIENT NOTED TO HAVE A RFA 20 G SALINE LOCKED, FLUSHING WELL; AND A L SUBCLAVIAN HD ACCESS, DRESSING INTACT. G TUBE ALSO PRESENT, PATENT AND INTACT, COVERED SITE WITH DRESSING. PATIENT'S SKIN ISSUES DOCUMENTED. BELONGINGS INVENTORIED. PATIENT PULLING ON TRACH AND SCRATCHING. R WRIST RESTRAINT PLACED WITH MD VILLA AND R HAND COVERED WITH KERLIX TO PROTECT PATIENT FROM SCRATCHING HERSELF. SAFETY MEASURES IN PLACE: BED LOCKED AND IN LOWEST POSITION, CALL LIGHT WITHIN REACH, SIDE RAILS UP. WILL MONITOR PATIENT CLOSELY.
[2022-08-30] MEDS ORDERED: ZOSYN IVPB 2.25 G in IV D5W 50ml IV ONE (03:30)
[2022-08-30] MEDS ORDERED: PIPERACILLIN /TAZOBACTAM 2.25 G VIAL IV ONE (03:45)
[2022-08-30 04:00] VITALS: BP 127/59
--- NOTE | 2022-08-30 04:10 | NUR ---
CALLED [facility] [phone] TO FAX OVER PATIENT'S CHART TO DETERMINE PATIENT'S FEEDING, IMMUNIZATIONS, ETC. WHEN ASKED TO JUST VERBALIZE WHAT THE FEEDING IS, RAYMUNDO SAYS THAT HE WILL JUST FAX EVERYTHING AND THAT EVERYTHING WILL BE IN THE CHART. RAYMUNDO STATES THAT HE WILL FAX THE PATIENT'S CHART SOON POSSIBLE.
[2022-08-30] MEDS: INSULIN REGULAR, HUMAN 100 UNIT/ML 3 ML VIAL SQ PRN ×2 (05:37→17:26)
--- NOTE | 2022-08-30 05:38 | NUR ---
RN NOTE PATIENT'S BS 116 MG/DL, NO COVERAGE GIVEN PER SLIDING SCALE
--- NOTE | 2022-08-30 06:25 | NUR ---
CALLED [facility] AGAIN TO FAX ORDERS/CHARTS. SPOKE WITH RAYMUNDO AGAIN, SAID THAT THEY FAXED IT, INFORMED THEM THAT WE NEVER RECEIVED ANY FAX FROM THEM. RAYMUNDO SAY THEY WILL FAX AGAIN.
--- NOTE | 2022-08-30 06:55 | NUR ---
FAX FROM [facility] RECEIVED.
--- NOTE | 2022-08-30 06:59 | NUR ---
RN CLOSING NOTE PATIENT IN BED, EYES CLOSED, OPENS EYES WITH TOUCH STIMULI. PATIENT IS NON VERBAL. ON MECHANICAL VENT TOLERATING CURRENT SETTINGS WITH 98% O2 SATURATION. TELE MONITOR READS ST 109 WITH 1ST DEGREE BLOCK. PATIENT'S G TUBE REMAINED PATENT AND INTACT. RFA 20 G, FLUSHING WELL. PATIENT STILL HAS R WRIST RESTRAINTS ON D/T PULLING ON TUBES AND HAS THE KERLIX WRAP ON HER HAND SINCE SHE SCRATCHES. PATIENT NOT IN ANY APPARENT DISTRESS. NO PAIN VIA FLACC. SAFETY MEASURES IMPLEMENTED. ALL NEEDS MET AND ATTENDED. ALL ORDERS CARRIED OUT. WILL ENDORSE TO DAY SHIFT NURSE FOR SALVATORE.
[2022-08-30 07:13] LABS: BASOPHILS # (AUTO) 0.1 K/uL (0.0-0.2); BASOPHILS % (AUTO) 0.5 % (0.0-2.0); EOSINOPHILS % (AUTO) 5.2 % (0.0-6.0); HEMATOCRIT 25 % (33-45); HEMOGLOBIN 7.9 g/dL (11.5-14.8); LYMPHOCYTES # (AUTO) 2.1 K/uL (0.8-4.8); LYMPHOCYTES % (AUTO) 9.4 % (20.0-44.0); MEAN CORPUSCULAR HGB CONC 31 g/dl (31.0-36.0); MEAN CORPUSCULAR VOLUME 96 fL (82-100); MONOCYTES # (AUTO) 1.4 K/uL (0.1-1.30); MONOCYTES % (AUTO) 6.3 % (2.0-12.0); NEUTROPHILS # (AUTO) 17.8 K/uL (1.8-8.9); NEUTROPHILS % (AUTO) 78.6 % (43.0-81.0); PLATELET COUNT (AUTO) 418 K/uL (150-450); RED BLOOD CELL COUNT(AUTO) 2.64 MIL/uL (4.0-5.2); WHITE BLOOD COUNT (AUTO) 22.6 K/uL (4.3-11.0)
[2022-08-30] MEDS ORDERED: VANCOMYCIN 500 MG in IV D5W 100 ML IV PRN (07:30)
--- NOTE | 2022-08-30 07:45 | NUR ---
PHOTOGRAPHIC RESTORER OPENING NOTES: RECEIVED PATIENT IN BED, EYES CLOSED, OPENS EYES WITH TOUCH STIMULI. PATIENT IS NON VERBAL. ON MECHANICAL VENT TOLERATING CURRENT SETTINGS WITH 98% O2 SATURATION. TELE MONITOR READS ST 105 WITH 1ST DEGREE BLOCK. PATIENT'S G TUBE REMAINED PATENT AND INTACT, TUBE FEEDING HAS NOT STARTED. IV ACCESS RFA #20, SL, PATENT AND FLUSHING WELL. PATIENT STILL HAS R WRIST RESTRAINTS D/T PULLING ON TUBES. NO S/S OF ACUTE DISTRESS AT THE MOMENT AND, PAIN ASSESSED VIA FLACC, NONE NOTED. SAFETY MEASURES IN PLACE, WILL CONT WITH PLAN OF CARE DURING SHIFT.
[2022-08-30 08:00] VITALS: BP 149/67
[2022-08-30 08:07] LABS: CALCIUM, SERUM 9.6 mg/dL (8.5-10.1); CARBON DIOXIDE 20 mmol/L (21-32); CHLORIDE 91 mmol/L (98-107); CREATININE 4.1 mg/dL (0.6-1.3); GLUCOSE 114 mg/dL (74-106); MAGNESIUM 2.7 mg/dL (1.8-2.4); PHOSPHORUS 5.5 mg/dL (2.5-4.9); POTASSIUM 4.3 mmol/L (3.5-5.1); SODIUM SERUM 129 mmol/L (136-145); UREA NITROGEN, BLOOD 68 mg/dL (7-18)
[2022-08-30] MEDS ORDERED: PANTOPRAZOLE 40 MG VIAL IV SCH (09:00)
--- NOTE | 2022-08-30 11:06 | NUR ---
WOUND CARE CONSULT: PT PRESENTS WITH MULTIPLE SKIN ISSUES AND WOUNDS INCLUDING SACRAL SCARRING, SCRATCH HATHAWAY TO BODY AND LOWER EXTREMITIES, DRY ESCHARS TO RT HAND AND RT KNEE AREA, OPEN AREA TO RT LOWER LEG AND DEEP TISSUE INJURY TO RT LATERAL FOOT, ALL PRESENT ON ADMISSION. PT SCRATCHES HER SKIN AT TIMES WITH HER RT HAND. DISCUSSED SKIN PROTECTION WITH NURSING STAFF. DR WATKINS AND DR INGRAM NOTIFIED OF SURGICAL/DPM CONSULTS. PT TO BE PLACED ON ZENON ISOFLEX LOW AIRLOSS BED. IN AGREEMENT WITH PLAN OF CARE.
[2022-08-30 11:38] VITALS: BP 148/71
[2022-08-30] MEDS: NEPRO 1,000 ML BOTTLE GT PRN (12:25)
[2022-08-30] MEDS ORDERED: NEPRO 1,000 ML BOTTLE GT PRN (12:30)
[2022-08-30 12:32] LABS: BAND % (MANUAL) 5 % (0.0-5.0); EOSINOPHILS % (MANUAL) 2 % (0-4); LYMPHOCYTES % (MANUAL) 6 % (16-48); MONOCYTES % (MANUAL) 8 % (0-11.0); NEUTROPHILS % (MANUAL) 79 (42-76)
[2022-08-30] MEDS ORDERED: PIPERACILLIN /TAZOBACTAM 2.25 G in IV D5W 50 ML IV SCH (13:00)
[2022-08-30] MEDS: CEFEPIME 1 GM in IV D5W 50 ML IV SCH (13:59)
[2022-08-30] MEDS ORDERED: ALBUTEROL FS 2.5 MG/3 ML VIAL.NEB IH PRN (14:00)
[2022-08-30] MEDS ORDERED: hydrALAZINE HCL 10 MG TABLET GT PRN (14:00)
[2022-08-30 16:17] VITALS: BP 142/78
--- NOTE | 2022-08-30 18:35 | NUR ---
INTERIOR DESIGN INSTRUCTOR CLOSING NOTES: PATIENT IN BED, AWAKE. PATIENT IS NON VERBAL. ON MECHANICAL VENT TOLERATING CURRENT SETTINGS WITH 100% O2 SATURATION. TELE MONITOR READS ST 1114. PATIENT'S G TUBE REMAINED PATENT AND INTACT, TUBE FEEDING STARTED 1200, NEPHRO RUNNING 75ML/HR FOR 16 HOURS. IV ACCESS RFA #20, SL, PATENT AND FLUSHING WELL. PATIENT STILL HAS R WRIST RESTRAINTS D/T PULLING ON TUBES, DUE FOR RENEWAL, 08/31 @ 8914. NO S/S OF ACUTE DISTRESS AT THE MOMENT, PAIN ASSESSED VIA FLACC, NONE NOTED. SAFETY MEASURES IN PLACEM, WILL ENDORSE TO PM SHIFT.
--- NOTE | 2022-08-30 19:30 | NUR ---
RN OPENING NOTE PATIENT IN BED, EYES CLOSED, OPENS EYES WITH TOUCH STIMULI. PATIENT IS NON VERBAL. ON MECHANICAL VENT TOLERATING CURRENT SETTINGS WITH 100% O2 SATURATION. TELE MONITOR READS ST 111 WITH 1ST DEGREE BLOCK. PATIENT'S G TUBE PATENT AND INTACT, ONGOING NEPRO AT 75 ML/HR, RESIDUAL 10 ML, TOLERATING FEEDING WELL AT THIS TIME. RFA 20 G, FLUSHING WELL. PATIENT STILL HAS R WRIST RESTRAINTS ON D/T PULLING ON TUBES. PATIENT NOT IN ANY APPARENT DISTRESS. NO PAIN VIA FLACC. SAFETY MEASURES IN PLACE: BED LOCKED AND IN LOWEST POSITION, CALL LIGHT WITHIN REACH, SIDE RAILS UP. WILL MONITOR PATIENT CLOSELY.
[2022-08-30] MEDS: ALBUTEROL FS 2.5 MG/3 ML VIAL.NEB IH SCH ×2 (20:06→23:34)
[2022-08-30] MEDS: OLANZAPINE 2.5 MG TABLET GT SCH (21:23)
[2022-08-30] MEDS: CARVEDILOL 3.125 MG TABLET GT SCH (21:23)
[2022-08-30] MEDS: CHLORHEXIDINE GLUCONATE 15 ML UDC MM SCH (21:23)
[2022-08-30 21:30] VITALS: BP 156/81
[2022-08-30] MEDS: INSULIN GLARGINE, 100 UNIT/ML CARTRIDGE SQ SCH (21:32)
--- NOTE | 2022-08-30 21:32 | NUR ---
RN NOTE LANTUS 15 UNITS GIVEN, BS 106 MG/DL. PATIENT ON TF AT THIS TIME
[2022-08-30] MEDS ORDERED: Medication Not On Formulary EA (Melatonin 3 MG) GT SCH (22:00)
[2022-08-31] VITALS: BP 158/86
--- NOTE | 2022-08-31 | NUR ---
RN NOTE PATIENT GIVEN 2 UNITS OF REGULAR INSULIN FOR BS OF 157 MG/DL, PATIENT ON TF, WILL MONITOR FOR HYPO/HYPERGLYCEMIA.
[2022-08-31] MEDS: INSULIN REGULAR, HUMAN 100 UNIT/ML 3 ML VIAL SQ PRN ×4 (00:02→17:46)
[2022-08-31] MEDS: NEPRO 1,000 ML BOTTLE GT PRN (03:02)
[2022-08-31 04:17] VITALS: BP 132/87
[2022-08-31] MEDS: BLOOD SUGAR DIAGNOSTIC 1 EACH STRIP IN SCH ×3 (05:26→17:43)
[2022-08-31 06:01] LABS: BASOPHILS # (AUTO) 0.1 K/uL (0.0-0.2); BASOPHILS % (AUTO) 0.8 % (0.0-2.0); HEMATOCRIT 27 % (33-45); HEMOGLOBIN 8.5 g/dL (11.5-14.8); LYMPHOCYTES # (AUTO) 1.7 K/uL (0.8-4.8); LYMPHOCYTES % (AUTO) 14.3 % (20.0-44.0); MEAN CORPUSCULAR HGB CONC 32 g/dl (31.0-36.0); MEAN CORPUSCULAR VOLUME 94 fL (82-100); MONOCYTES # (AUTO) 1.2 K/uL (0.1-1.30); MONOCYTES % (AUTO) 10.4 % (2.0-12.0); NEUTROPHILS # (AUTO) 6.8 K/uL (1.8-8.9); NEUTROPHILS % (AUTO) 57.5 % (43.0-81.0); PLATELET COUNT (AUTO) 489 K/uL (150-450); RED BLOOD CELL COUNT(AUTO) 2.85 MIL/uL (4.0-5.2); WHITE BLOOD COUNT (AUTO) 11.8 K/uL (4.3-11.0)
--- NOTE | 2022-08-31 06:07 | NUR ---
RN NOTE PATIENT GIVEN 2 UNITS OF REGULAR INSULIN FOR BS OF 138 MG/DL, PATIENT ON TF, WILL MONITOR FOR HYPO/HYPERGLYCEMIA.
[2022-08-31] MEDS: ALBUTEROL FS 2.5 MG/3 ML VIAL.NEB IH SCH ×3 (06:10→17:50)
--- NOTE | 2022-08-31 06:21 | NUR ---
Pt recvd on ordered AC vent settings. Trach is patent and secured. Suction PRN, neb tx given and daquan well no adverse reaction noted. No SOB or respiratory distress noted at this time. Vent is plugged into red outlet with alarms on and audible. Spare trach and ambu bag at bedside.
[2022-08-31 06:46] LABS: CALCIUM, SERUM 10.5 mg/dL (8.5-10.1); CARBON DIOXIDE 19 mmol/L (21-32); CHLORIDE 91 mmol/L (98-107); CREATININE 5.2 mg/dL (0.6-1.3); GLUCOSE 149 mg/dL (74-106); POTASSIUM 4.4 mmol/L (3.5-5.1); SODIUM SERUM 131 mmol/L (136-145)
--- NOTE | 2022-08-31 07:18 | NUR ---
RN CLOSING NOTE PATIENT IN BED, EYES CLOSED, OPENS EYES WITH TOUCH STIMULI. PATIENT IS NON VERBAL. ON MECHANICAL VENT TOLERATING CURRENT SETTINGS WITH 100% O2 SATURATION. TELE MONITOR READS ST 117 WITH 1ST DEGREE BLOCK. PATIENT'S G TUBE PATENT AND INTACT, TUBE FEEDING OFF AT THIS TIME TO BE TURNED ON AGAIN AT 12 PM, TOLERATED FEEDING WELL. RFA 20 G, FLUSHING WELL. PATIENT STILL HAS R WRIST RESTRAINTS ON D/T PULLING ON TUBES. PATIENT NOT IN ANY APPARENT DISTRESS. NO PAIN VIA FLACC. SAFETY MEASURES IN PLACE: BED LOCKED AND IN LOWEST POSITION, CALL LIGHT WITHIN REACH, SIDE RAILS UP. ALL NEEDS MET AND ATTENDED. ALL ORDERS CARRIED OUT. WILL ENDORSE TO DAY SHIFT NURSE FOR SALVATORE.
--- NOTE | 2022-08-31 07:23 | NUR ---
ONLINE RETAILER OPENING NOTES: RECEIVED PATIENT AWAKE IN BED IN NO ACUTE SIGNS OF DISTRESS. HOB ELEVATED. PT IS NON-VERBAL AND OPEN EYES TO STIMULI. PATIENT WITH TRACH SHILEY #[id number] CONNECTED TO MECHANICAL VENTILATOR, TOLERATING CURRENT SETTINGS WITH SP02 OF 100% NOTED AT THIS TIME. PATIENT WITH SOFT RIGHT WRIST RESTRAINT IN PLACE D/T PULLING ON TUBES, CIRCULATION WNL. CURRENT TELE-MONITOR READS ST 120 WITH 1ST DEGREE HEART BLOCK. G-TUBE IN PLACE AND PATENT, WILL RESUME FEEDING AT 1200 @ 75ML/HR X16HRS DAILY. ASPIRATION PRECAUTIONS MAINTAINED. IV ACCESS ON RFA #20, SL, INTACT AND FLUSHING WELL. PERMACATH ON LCW INTACT WITH DRESSING C/D/I. SAFETY MEASURES IN PLACE: BED IN LOWEST LOCKED POSITION WITH SR -UP X3. BED ALARM ON AND CALL LIGHT W/I EASY REACH. WILL CONTINUE TO MONITOR PT THROUGHOUT SHIFT.
[2022-08-31] MEDS: LEVOTHYROXINE SODIUM 88 MCG TABLET GT SCH (07:45)
[2022-08-31 07:46] LABS: UREA NITROGEN, BLOOD 89 mg/dL (7-18)
[2022-08-31 08:29] LABS: MAGNESIUM 3.2 mg/dL (1.8-2.4); PHOSPHORUS 7.2 mg/dL (2.5-4.9)
[2022-08-31] MEDS: PANTOPRAZOLE 40 MG/PACK PACK GT SCH (08:59)
[2022-08-31] MEDS: CHLORHEXIDINE GLUCONATE 15 ML UDC MM SCH ×2 (08:59→21:40)
[2022-08-31] MEDS ORDERED: PROSTAT (PYXIS) 30 ML UDC GT SCH (09:00)
[2022-08-31] MEDS ORDERED: PROSOURCE / PROSTAT (PYXIS) 30 ML UDC GT SCH (09:00)
[2022-08-31] MEDS: DOCUSATE SODIUM 100 MG CAPSULE PO SCH (09:00)
[2022-08-31] MEDS: CARVEDILOL 3.125 MG TABLET GT SCH ×2 (09:00→21:41)
[2022-08-31] MEDS: ASPIRIN 81 MG TAB.CHEW GT SCH (09:00)
[2022-08-31] MEDS ORDERED: Medication Not On Formulary EA (Folic Acid/Vitamin B Comp W-C (Nephro-Vite Tablet) 0.8 M GT SCH (09:00)
[2022-08-31] MEDS: PROSOURCE / PROSTAT (PYXIS) 30 ML UDC GT SCH (09:47)
--- NOTE | 2022-08-31 11:22 | NUR ---
RN NOTES PT FOR HEMODIALYSIS TODAY, OBTAINED TEL CONSENT TO SON NIRMAL TAY AT [facility] # [phone], CONFIRMED WITH ANOTHER RN VERNA.
[2022-08-31] MEDS: CEFEPIME 1 GM in IV D5W 50 ML IV SCH (12:03)
--- NOTE | 2022-08-31 14:35 | NUR ---
RN NOTES DIALYSIS VIA CHEST WALL VIA PERMACATH FINISHED WITH 2L OUT. PT TOLERATED PROCEDURE WELL WITH NO ACUTE DISTRESS.
--- NOTE | 2022-08-31 16:30 | NUR ---
RN NOTE PT HAD DIALYSIS TODAY, SCHEDULED FOR VANCOMYCIN PRN S/P HD. PER ASHLY IN PHARMACY TO HOLD VANCO DUE TO PTS VANCO TROUGH LEVEL BEING 44.
--- NOTE | 2022-08-31 19:35 | NUR ---
TELERN RECEIVED AWAKE, VENT DEPENDENT, TRYING TO MOUTH WORDS NO RESPIRATORY DISTRESS, HOB TO 35 DEGRESS. PRESENT GT FEEDINGS NEPHRO WELL TOLERATED, NO RESIDUALS . SR TO ST ON THE MONITOR, CONTINUED MONITORING. CLOSELY WATCHED.
[2022-08-31 20:00] VITALS: BP 132/66
[2022-08-31] MEDS: OLANZAPINE 2.5 MG TABLET GT SCH (21:40)
--- NOTE | 2022-08-31 23:00 | NUR ---
TELERN BS 197 15 UNITS LANTUS ADMINISTERED ORDERED. ENDORSED TO INCOMING RN FOR CONTINUITY OF CARE.
[2022-08-31] MEDS: INSULIN GLARGINE, 100 UNIT/ML CARTRIDGE SQ SCH (23:08)
[2022-09-01] VITALS: BP 121/56
[2022-09-01] MEDS: NEPRO 1,000 ML BOTTLE GT PRN ×2 (00:03→22:44)
[2022-09-01] MEDS: ALBUTEROL FS 2.5 MG/3 ML VIAL.NEB IH SCH ×4 (00:08→18:09)
[2022-09-01] MEDS: BLOOD SUGAR DIAGNOSTIC 1 EACH STRIP IN SCH ×5 (00:12→23:30)
[2022-09-01] MEDS: INSULIN REGULAR, HUMAN 100 UNIT/ML 3 ML VIAL SQ PRN ×4 (00:23→23:31)
[2022-09-01 04:00] VITALS: BP 119/97
[2022-09-01 06:29] LABS: BASOPHILS # (AUTO) 0.1 K/uL (0.0-0.2); EOSINOPHILS % (AUTO) 13.7 % (0.0-6.0); HEMATOCRIT 27 % (33-45); HEMOGLOBIN 8.8 g/dL (11.5-14.8); LYMPHOCYTES # (AUTO) 1.8 K/uL (0.8-4.8); LYMPHOCYTES % (AUTO) 15.3 % (20.0-44.0); MEAN CORPUSCULAR HGB CONC 32 g/dl (31.0-36.0); MEAN CORPUSCULAR VOLUME 95 fL (82-100); MONOCYTES # (AUTO) 1.2 K/uL (0.1-1.30); MONOCYTES % (AUTO) 9.8 % (2.0-12.0); NEUTROPHILS # (AUTO) 7.2 K/uL (1.8-8.9); NEUTROPHILS % (AUTO) 60.2 % (43.0-81.0); PLATELET COUNT (AUTO) 519 K/uL (150-450); RED BLOOD CELL COUNT(AUTO) 2.87 MIL/uL (4.0-5.2)
--- NOTE | 2022-09-01 06:52 | NUR ---
RN CLOSING NOTE PATIENT RESTING IN BED. OPENS EYES SPONTANEOUSLY, NONVERAL. ON MECHANICAL VENT, NO CHANGES IN SETTINGS. NO RESPIRATORY DISTRESS. NO S/S PAIN NOTED. SINUS RHTYHM WITH 1ST DEGREE AVB ON THE MONITOR. ANURIC. RIGHT WRIST RESTRAINT. GTUBE FEEDING @75, NO RESIDUAL. PLAN FOR HD THIS AM.
[2022-09-01 07:01] LABS: CALCIUM, SERUM 10.2 mg/dL (8.5-10.1); CARBON DIOXIDE 23 mmol/L (21-32); CHLORIDE 94 mmol/L (98-107); CREATININE 5.1 mg/dL (0.6-1.3); GLUCOSE 152 mg/dL (74-106); POTASSIUM 4.8 mmol/L (3.5-5.1); SODIUM SERUM 135 mmol/L (136-145)
[2022-09-01 07:03] LABS: MAGNESIUM 3.3 mg/dL (1.8-2.4); PHOSPHORUS 6.4 mg/dL (2.5-4.9)
[2022-09-01 07:29] LABS: UREA NITROGEN, BLOOD 87 mg/dL (7-18)
[2022-09-01 08:00] VITALS: BP 152/64
--- NOTE | 2022-09-01 08:00 | NUR ---
RN OPENING NOTE PATIENT AWAKE IN BED RESTING. NON-VERBAL. NO S/S OF PAIN NOTED AT THIS TIME. ON VENT, TOLERATING SETTING WELL AT PRESCRIBED SETTINGS, NO DISTRESS NOTED. IV ACCESS RFA #20G INTACT, PATENT AND FLUSHING WELL. LCW PERMACATH FOR HD. PATIENT WITH EXTERNAL LAND APPRAISER WITH CURRENT READING OF SR WITH 1ST DEGREE AVB AND HR OF 90, NO CARDIAC DISTRESS NOTED. FALL AND SAFETY MEASURES IN PLACE, BED ALARM ON, BED IN LOW AND LOCK POSITION, CALL LIGHT AND TABLE WITHIN EASY REACH, SIDE RAILS UP X2. WILL CONTINUE TO MONITOR.
[2022-09-01] MEDS: LEVOTHYROXINE SODIUM 88 MCG TABLET GT SCH (08:31)
[2022-09-01] MEDS: PANTOPRAZOLE 40 MG/PACK PACK GT SCH (08:31)
[2022-09-01] MEDS: CHLORHEXIDINE GLUCONATE 15 ML UDC MM SCH ×2 (08:31→21:49)
[2022-09-01] MEDS: CARVEDILOL 3.125 MG TABLET GT SCH ×2 (08:32→21:49)
[2022-09-01] MEDS: PROSOURCE / PROSTAT (PYXIS) 30 ML UDC GT SCH (08:32)
[2022-09-01] MEDS: DOCUSATE SODIUM 100 MG CAPSULE PO SCH (08:32)
[2022-09-01] MEDS: ASPIRIN 81 MG TAB.CHEW GT SCH (08:32)
--- NOTE | 2022-09-01 08:33 | NUR ---
RN NOTE PATIENT BLOOD PRESSURE MEDICATION 0900 CARVEDILOL WAS NOT ADMINISTERED, PATIENT IS SCHEDULE FOR DIALYSIS. WILL CONTINUE TO MONITOR.
[2022-09-01] MEDS ORDERED: ALBUMIN 25% 12.5 GM/50 ML BOTTLE IV PRN (09:30)
[2022-09-01] MEDS: ALBUMIN 25% 25 GM in PREMIX 1 EA IV PRN (09:58)
[2022-09-01] MEDS ORDERED: ALBUMIN 25% 50 GM in PREMIX 1 EA IV PRN (10:00)
[2022-09-01 12:00] VITALS: BP 133/75
[2022-09-01] MEDS: CEFEPIME 1 GM in IV D5W 50 ML IV SCH (13:34)
[2022-09-01 16:00] VITALS: BP 154/70
--- NOTE | 2022-09-01 19:04 | NUR ---
RN CLOSING NOTE PATIENT AWAKE IN BED RESTING. NON-VERBAL. NO S/S OF PAIN NOTED AT THIS TIME. ON VENT, TOLERATING SETTING WELL AT PRESCRIBED SETTINGS, NO DISTRESS NOTED. IV ACCESS RFA #22G INTACT, PATENT AND FLUSHING WELL. LCW PERMACATH FOR HD. PATIENT WITH EXTERNAL TELETYPE CLERK WITH CURRENT READING OF SR WITH 1ST DEGREE AND HR OF 93, NO CARDIAC DISTRESS NOTED. PATIENT WAS TURNED AND REPOSITIONED PER PROTOCOL. WOUND CARE IMPLEMENTED. FALL AND SAFETY MEASURES IN PLACE, BED ALARM ON, BED IN LOW AND LOCK POSITION, CALL LIGHT AND TABLE WITHIN EASY REACH, SIDE RAILS UP X2. WILL ENDORSE TO CORRECTIONAL OFFICER SERGEANT.
--- NOTE | 2022-09-01 19:30 | NUR ---
BI REPORT DEVELOPER OPENING NOTES RECEIVED PATIENT LYING IN BED ASLEEP, DIFFICULT TO AROUSE AT THIS TIME. OPENS EYES AND NON-VERBAL. BREATHING EVEN AND NON-LABORED. HAS TRACH CONNECTED TO VENT TOLERATING CURRENT SETTINGS. SATURATING AT 99%. NO PAIN OR DISCOMFORT NOTED. NOT IN APPARENT DISTRESS. ON TELE MONITOR READING SINUS RHYTHM AT 96 BPM. HAS RIGHT FOREARM IV ACCESS #22G AND SALINE LOCKED. NO S/S OF INFILTRATION NOTED. LEFT CHEST WALL PERMACATH DRESSING C/D/I. ON NEPRO G-TUBE FEEDING AT 75 ML/HR INFUSING WELL. PATIENT IS ANURIC. SAFETY PRECAUTIONS IN PLACE: BED LOCKED AND IN LOWEST POSITION, SIDE RAILS UP X2, CALL LIGHT WITHIN EASY REACH. WILL CONTINUE POC.
[2022-09-01 20:00] VITALS: BP 160/73
[2022-09-01] MEDS: OLANZAPINE 2.5 MG TABLET GT SCH (21:49)
[2022-09-01] MEDS: INSULIN GLARGINE, 100 UNIT/ML CARTRIDGE SQ SCH (21:52)
[2022-09-02] VITALS: BP 162/76
[2022-09-02] MEDS: ALBUTEROL FS 2.5 MG/3 ML VIAL.NEB IH SCH ×5 (00:45→23:18)
[2022-09-02] MEDS: Z GUARD REMEDY 4 OZ OINT TP PRN (03:27)
[2022-09-02 04:00] VITALS: BP_SYST 162; BP_SYST 164; BP_DIAS 76; BP_DIAS 78
[2022-09-02] MEDS: BLOOD SUGAR DIAGNOSTIC 1 EACH STRIP IN SCH ×3 (05:45→17:03)
[2022-09-02] MEDS: INSULIN REGULAR, HUMAN 100 UNIT/ML 3 ML VIAL SQ PRN ×3 (05:49→17:04)
--- NOTE | 2022-09-02 06:36 | NUR ---
ORTHOTIC AIDE CLOSING NOTES PATIENT LYING IN BED WITH EYES CLOSED. OPENS EYES TO VERBAL AND TACTILE STIMULI. NO SOB OR NOTED. TOLERATING CURRENT VENT SETTINGS. NO ACUTE DISTRESS NOTED. AFEBRILE. ON TELE MONITOR READING SINUS TACHYCARDIA WITH 1ST DEGREE AV BLOCK AT 105 BPM. HAS RIGHT FOREARM IV ACCESS #22G AND SALINE LOCKED. INTACT, PATENT AND FLUSHING. LEFT CHEST WALL PERMACATH DRESSING C/D/I. NO RESIDUAL WHEN G-TUBE WAS ASPIRATED. SOFT RIGHT WRIST RESTRAINT IN PLACE. ALL DUE MEDS GIVEN AND NEEDS ATTENDED. SAFETY PRECAUTIONS MAINTAINED. WILL ENDORSE TO NEXT SHIFT FOR SALVATORE.
[2022-09-02 06:53] LABS: BASOPHILS # (AUTO) 0.1 K/uL (0.0-0.2); BASOPHILS % (AUTO) 0.5 % (0.0-2.0); EOSINOPHILS % (AUTO) 16.3 % (0.0-6.0); HEMATOCRIT 28 % (33-45); HEMOGLOBIN 8.6 g/dL (11.5-14.8); LYMPHOCYTES # (AUTO) 2.1 K/uL (0.8-4.8); LYMPHOCYTES % (AUTO) 17.1 % (20.0-44.0); MEAN CORPUSCULAR HGB CONC 31 g/dl (31.0-36.0); MEAN CORPUSCULAR VOLUME 96 fL (82-100); MONOCYTES # (AUTO) 1.4 K/uL (0.1-1.30); MONOCYTES % (AUTO) 11.6 % (2.0-12.0); NEUTROPHILS # (AUTO) 6.7 K/uL (1.8-8.9); NEUTROPHILS % (AUTO) 54.5 % (43.0-81.0); PLATELET COUNT (AUTO) 501 K/uL (150-450); RED BLOOD CELL COUNT(AUTO) 2.89 MIL/uL (4.0-5.2); WHITE BLOOD COUNT (AUTO) 12.4 K/uL (4.3-11.0)
--- NOTE | 2022-09-02 07:11 | NUR ---
RN OPENING NOTE PATIENT AWAKE IN BED RESTING. NON-VERBAL. NO S/S OF PAIN NOTED AT THIS TIME. ON VENT, TOLERATING SETTING WELL AT PRESCRIBED SETTINGS, NO DISTRESS NOTED. IV ACCESS RFA #22G INTACT, PATENT AND FLUSHING WELL. LCW PERMACATH FOR HD. PATIENT WITH EXTERNAL COMMERCIAL DECORATOR WITH CURRENT READING OF ST WITH 1ST DEGREE AVB AND HR OF 105, NO CARDIAC DISTRESS NOTED. FALL AND SAFETY MEASURES IN PLACE, BED ALARM ON, BED IN LOW AND LOCK POSITION, CALL LIGHT AND TABLE WITHIN EASY REACH, SIDE RAILS UP X2. WILL CONTINUE TO MONITOR.
[2022-09-02 07:18] LABS: CARBON DIOXIDE 24 mmol/L (21-32); CHLORIDE 99 mmol/L (98-107); CREATININE 3.9 mg/dL (0.6-1.3); GLUCOSE 228 mg/dL (74-106); MAGNESIUM 2.9 mg/dL (1.8-2.4); PHOSPHORUS 4.7 mg/dL (2.5-4.9); POTASSIUM 4.3 mmol/L (3.5-5.1); SODIUM SERUM 138 mmol/L (136-145); UREA NITROGEN, BLOOD 56 mg/dL (7-18)
[2022-09-02 08:52] VITALS: BP 150/78
[2022-09-02] MEDS: CHLORHEXIDINE GLUCONATE 15 ML UDC MM SCH ×2 (09:34→21:02)
[2022-09-02] MEDS: DOCUSATE SODIUM 100 MG CAPSULE PO SCH (09:34)
[2022-09-02] MEDS: ASPIRIN 81 MG TAB.CHEW GT SCH (09:34)
[2022-09-02] MEDS: PROSOURCE / PROSTAT (PYXIS) 30 ML UDC GT SCH (09:35)
[2022-09-02] MEDS: CARVEDILOL 3.125 MG TABLET GT SCH ×2 (09:35→21:03)
[2022-09-02] MEDS: PANTOPRAZOLE 40 MG/PACK PACK GT SCH (09:35)
[2022-09-02] MEDS: LEVOTHYROXINE SODIUM 88 MCG TABLET GT SCH (09:36)
[2022-09-02 12:00] VITALS: BP 109/65
[2022-09-02] MEDS: CEFEPIME 1 GM in IV D5W 50 ML IV SCH (13:14)
[2022-09-02 16:15] VITALS: BP 130/62
--- NOTE | 2022-09-02 18:49 | NUR ---
RN CLOSING NOTE PATIENT AWAKE IN BED RESTING. NON-VERBAL. NO S/S OF PAIN NOTED AT THIS TIME. ON VENT, TOLERATING SETTING WELL AT PRESCRIBED SETTINGS, NO DISTRESS NOTED. IV ACCESS RFA #22G INTACT, PATENT AND FLUSHING WELL. LCW PERMACATH FOR HD. PATIENT WITH EXTERNAL ORGAN FIXER WITH CURRENT READING OF SR AND HR OF 102, NO CARDIAC DISTRESS NOTED. PATIENT WAS TURNED AND REPOSITIONED PER PROTOCOL. WOUND CARE IMPLEMENTED. FALL AND SAFETY MEASURES IN PLACE, BED ALARM ON, BED IN LOW AND LOCK POSITION, CALL LIGHT AND TABLE WITHIN EASY REACH, SIDE RAILS UP X2. WILL ENDORSE TO MANAGER CARDIAC CATH.
--- NOTE | 2022-09-02 19:30 | NUR ---
OYSTER HARVESTER OPENING NOTES RECEIVED PATIENT LYING IN BED AWAKE, NON-VERBAL. RIGHT SOFT WRIST RESTRAINT ON BUT SHE WAS ABLE TO SCRATCH HER KNEE, BLEEDING NOTED. BREATHING EVEN AND NON-LABORED. HAS TRACH CONNECTED TO VENT TOLERATING CURRENT SETTINGS. SATURATING AT 98%. NOT IN APPARENT DISTRESS. ON TELE MONITOR READING SINUS TACHYCARDIA AT 107 BPM. HAS RIGHT FOREARM IV ACCESS #22G AND SALINE LOCKED. NO S/S OF INFILTRATION NOTED. LEFT CHEST WALL PERMACATH DRESSING C/D/I. NEPRO G-TUBE FEEDING COMPLETED 1200 ML. SAFETY PRECAUTIONS IN PLACE: BED LOCKED AND IN LOWEST POSITION, SIDE RAILS UP X3, CALL LIGHT WITHIN EASY REACH. WILL CONTINUE POC.
[2022-09-02 20:00] VITALS: BP 156/85
[2022-09-02] MEDS: OLANZAPINE 2.5 MG TABLET GT SCH (21:03)
[2022-09-02] MEDS: INSULIN GLARGINE, 100 UNIT/ML CARTRIDGE SQ SCH (21:10)
[2022-09-02] MEDS: NEPRO 1,000 ML BOTTLE GT PRN (22:47)
[2022-09-03] VITALS: BP 146/78
[2022-09-03] MEDS: BLOOD SUGAR DIAGNOSTIC 1 EACH STRIP IN SCH ×4 (00:02→17:09)
[2022-09-03] MEDS: INSULIN REGULAR, HUMAN 100 UNIT/ML 3 ML VIAL SQ PRN ×4 (00:03→17:07)
[2022-09-03] MEDS: ACETAMINOPHEN 325 MG TABLET PO PRN (00:08)
--- NOTE | 2022-09-03 02:40 | NUR ---
TEXTILE PIN WORKER NOTES IV ACCESS PULLED OUT. RN WASTE MINIMIZATION TECHNICIAN ATTEMPTED TO RE-INSERT BUT UNSUCCESSFUL. NOTIFIED VINNY SLURRY PLANT OPERATOR, WILL PLACE AN ORDER FOR A MIDLINE.
[2022-09-03 04:00] VITALS: BP 130/64
[2022-09-03] MEDS: ALBUTEROL FS 2.5 MG/3 ML VIAL.NEB IH SCH ×3 (05:30→17:31)
--- NOTE | 2022-09-03 06:31 | NUR ---
SENIOR QA ANALYST CLOSING NOTES PATIENT LYING IN BED SLEEPING INTERMITTENTLY. OPENS EYES AND NON-VERBAL. MECHANICAL VENT SETTINGS TOLERATED WELL. NO SOB OR NOTED. NO PAIN OR DISCOMFORT NOTED. AFEBRILE. ON TELE MONITOR READING SINUS RHYTHM AT 99 BPM. NO IV ACCESS THIS TIME, AWAITING FOR MIDLINE INSERTION. LEFT CHEST WALL PERMACATH DRESSING C/D/I. ON NEPRO G-TUBE FEEDING AT 75 ML/HR INFUSING WELL. NO RESIDUAL. WOUND CARE RENDERED. ALL DUE MEDS GIVEN AND NEEDS ATTENDED. SAFETY MEASURES MAINTAINED. WILL ENDORSE TO NEXT SHIFT FOR SALVATORE.
--- NOTE | 2022-09-03 08:05 | NUR ---
SPOOL SALVAGER OPENING NOTES: PATIENT LYING IN BED SLEEPING INTERMITTENTLY. OPENS EYES AND NON-VERBAL. MECHANICAL VENT SETTINGS TOLERATED WELL. NO SOB NOTED. NO PAIN OR DISCOMFORT NOTED VIA FLACC. ON TELE MONITOR READING SINUS RHYTHM AT 96 BPM. NO IV ACCESS THIS TIME, AWAITING FOR MIDLINE INSERTION. LEFT CHEST WALL PERMACATH DRESSING C/D/I. ON NEPRO G-TUBE FEEDING AT 75 ML/HR INFUSING WELL. SAFETY MEASURES MAINTAINED, WILL CONT WITH PLAN OF CARE DURING SHIFT.
[2022-09-03] MEDS: ACETAMINOPHEN ES 500 MG TABLET GT PRN (09:30)
[2022-09-03] MEDS: PANTOPRAZOLE 40 MG/PACK PACK GT SCH (09:31)
[2022-09-03] MEDS: CHLORHEXIDINE GLUCONATE 15 ML UDC MM SCH ×2 (09:31→21:36)
[2022-09-03] MEDS: DOCUSATE SODIUM 100 MG CAPSULE PO SCH (09:31)
[2022-09-03] MEDS: PROSOURCE / PROSTAT (PYXIS) 30 ML UDC GT SCH (09:31)
[2022-09-03] MEDS: CARVEDILOL 3.125 MG TABLET GT SCH ×2 (09:32→21:35)
[2022-09-03] MEDS: LEVOTHYROXINE SODIUM 88 MCG TABLET GT SCH (09:39)
[2022-09-03] MEDS: ASPIRIN 81 MG TAB.CHEW GT SCH (09:39)
[2022-09-03 11:51] LABS: BASOPHILS # (AUTO) 0.1 K/uL (0.0-0.2); BASOPHILS % (AUTO) 0.5 % (0.0-2.0); EOSINOPHILS % (AUTO) 15.2 % (0.0-6.0); HEMATOCRIT 29 % (33-45); LYMPHOCYTES # (AUTO) 2.1 K/uL (0.8-4.8); LYMPHOCYTES % (AUTO) 12.4 % (20.0-44.0); MEAN CORPUSCULAR HGB CONC 32 g/dl (31.0-36.0); MEAN CORPUSCULAR VOLUME 97 fL (82-100); MONOCYTES # (AUTO) 1.2 K/uL (0.1-1.30); MONOCYTES % (AUTO) 7.2 % (2.0-12.0); NEUTROPHILS # (AUTO) 10.9 K/uL (1.8-8.9); NEUTROPHILS % (AUTO) 64.7 % (43.0-81.0); PLATELET COUNT (AUTO) 542 K/uL (150-450); RED BLOOD CELL COUNT(AUTO) 2.94 MIL/uL (4.0-5.2); WHITE BLOOD COUNT (AUTO) 16.8 K/uL (4.3-11.0)
[2022-09-03 12:00] VITALS: BP 167/69
[2022-09-03 12:28] LABS: CARBON DIOXIDE 23 mmol/L (21-32); CHLORIDE 99 mmol/L (98-107); CREATININE 5.5 mg/dL (0.6-1.3); GLUCOSE 241 mg/dL (74-106); MAGNESIUM 3.5 mg/dL (1.8-2.4); PHOSPHORUS 6.3 mg/dL (2.5-4.9); POTASSIUM 4.7 mmol/L (3.5-5.1); SODIUM SERUM 138 mmol/L (136-145)
[2022-09-03 12:35] LABS: UREA NITROGEN, BLOOD 96 mg/dL (7-18)
[2022-09-03] MEDS: MIDODRINE HCL (5MG) 5 MG TABLET GT PRN (12:56)
[2022-09-03] MEDS: CEFEPIME 1 GM in IV D5W 50 ML IV SCH (13:34)
--- NOTE | 2022-09-03 13:36 | NUR ---
PATIENT HEART RATE WERE FLUCTUATING DUE DIALYSIS TREATMENT AND LOW BP DURING DIALYSIS. Addendum: 09/03/22 at 1337 by CHIKI TAMEZ RT Amended: Links added.
[2022-09-03 16:00] VITALS: BP 131/62
[2022-09-03] MEDS: NEPRO 1,000 ML BOTTLE GT PRN (16:46)
--- NOTE | 2022-09-03 18:55 | NUR ---
STEAM FINISHER CLOSING NOTES: PATIENT LYING IN BED SLEEPING INTERMITTENTLY. OPENS EYES AND NON-VERBAL. MECHANICAL VENT SETTINGS TOLERATED WELL. NO SOB NOTED. NO PAIN OR DISCOMFORT NOTED VIA FLACC. ON TELE MONITOR READING SINUS RHYTHM AT 98 BPM. IV ACCESS @ L AC#22 AND R AC#22, BOTH PATENT, INTACT AND FLUSHING WELL, SALINE LOCKED. LEFT CHEST WALL PERMACATH DRESSING C/D/I. ON NEPRO G-TUBE FEEDING AT 75 ML/HR INFUSING, STOPPED AT 1800. SAFETY MEASURES MAINTAINED, WILL ENDORSE TO PM SHIFT.
--- NOTE | 2022-09-03 19:30 | NUR ---
noc rn opening received patient in bed with eyes closed, easy to arouse. no s/s of apparent distress-- vent dependednt. not exhibiting pain via flacc. tele monitor reading sr with 92 bpm. Peg tube in place, with tube feeding on standby for now. no iv fluids running. lcw permacath noted in place intact. safety in place. will cont. with plan for patient.
[2022-09-03] MEDS: OLANZAPINE 2.5 MG TABLET GT SCH (21:36)
[2022-09-03] MEDS: INSULIN GLARGINE, 100 UNIT/ML CARTRIDGE SQ SCH (21:49)
[2022-09-04] VITALS: BP 134/74
[2022-09-04] MEDS: BLOOD SUGAR DIAGNOSTIC 1 EACH STRIP IN SCH ×4 (00:08→17:27)
[2022-09-04] MEDS: ALBUTEROL FS 2.5 MG/3 ML VIAL.NEB IH SCH ×4 (01:57→18:28)
[2022-09-04] MEDS: INSULIN REGULAR, HUMAN 100 UNIT/ML 3 ML VIAL SQ PRN ×3 (06:49→17:31)
[2022-09-04 07:06] LABS: *SPE A/G RATIO 0.7 (0.7-1.7); *SPE ALPHA-1-GLOBULIN 0.4 g/dL (0.0-0.4); *SPE M-SPIKE Not Observed g/dL (Not Observed)
--- NOTE | 2022-09-04 07:32 | NUR ---
noc rn closing needs attended. report given to Gladis for continuity of patient care.
[2022-09-04 08:00] VITALS: BP 148/71
[2022-09-04] MEDS: CHLORHEXIDINE GLUCONATE 15 ML UDC MM SCH ×2 (08:52→21:36)
[2022-09-04] MEDS: DOCUSATE SODIUM 100 MG CAPSULE PO SCH (08:52)
[2022-09-04] MEDS: LEVOTHYROXINE SODIUM 88 MCG TABLET GT SCH (08:53)
[2022-09-04] MEDS: PANTOPRAZOLE 40 MG/PACK PACK GT SCH (08:53)
[2022-09-04] MEDS: ASPIRIN 81 MG TAB.CHEW GT SCH (08:53)
[2022-09-04] MEDS: CARVEDILOL 3.125 MG TABLET GT SCH ×2 (08:53→21:36)
[2022-09-04] MEDS: PROSOURCE / PROSTAT (PYXIS) 30 ML UDC GT SCH (08:56)
[2022-09-04 12:00] VITALS: BP 143/70
[2022-09-04 12:04] LABS: BASOPHILS # (AUTO) 0.1 K/uL (0.0-0.2); BASOPHILS % (AUTO) 0.9 % (0.0-2.0); EOSINOPHILS % (AUTO) 18.9 % (0.0-6.0); HEMATOCRIT 27 % (33-45); HEMOGLOBIN 8.6 g/dL (11.5-14.8); LYMPHOCYTES # (AUTO) 2.6 K/uL (0.8-4.8); LYMPHOCYTES % (AUTO) 15.4 % (20.0-44.0); MEAN CORPUSCULAR HGB CONC 31 g/dl (31.0-36.0); MEAN CORPUSCULAR VOLUME 97 fL (82-100); MONOCYTES # (AUTO) 1.3 K/uL (0.1-1.30); MONOCYTES % (AUTO) 7.6 % (2.0-12.0); NEUTROPHILS # (AUTO) 9.7 K/uL (1.8-8.9); NEUTROPHILS % (AUTO) 57.2 % (43.0-81.0); PLATELET COUNT (AUTO) 520 K/uL (150-450); RED BLOOD CELL COUNT(AUTO) 2.82 MIL/uL (4.0-5.2); WHITE BLOOD COUNT (AUTO) 16.9 K/uL (4.3-11.0)
[2022-09-04] MEDS: CEFEPIME 1 GM in IV D5W 50 ML IV SCH (12:57)
[2022-09-04 13:11] LABS: CALCIUM, SERUM 11.7 mg/dL (8.5-10.1); CARBON DIOXIDE 24 mmol/L (21-32); CHLORIDE 97 mmol/L (98-107); CREATININE 5.9 mg/dL (0.6-1.3); GLUCOSE 188 mg/dL (74-106); MAGNESIUM 3.5 mg/dL (1.8-2.4); PHOSPHORUS 6.5 mg/dL (2.5-4.9); POTASSIUM 4.6 mmol/L (3.5-5.1); SODIUM SERUM 134 mmol/L (136-145)
[2022-09-04 13:21] LABS: UREA NITROGEN, BLOOD 108 mg/dL (7-18)
[2022-09-04 16:00] VITALS: BP 144/74
[2022-09-04] MEDS: NEPRO 1,000 ML BOTTLE GT PRN (16:41)
--- NOTE | 2022-09-04 18:48 | NUR ---
ACID CUTTER CLOSING NOTES: PATIENT LYING IN BED SLEEPING INTERMITTENTLY. OPENS EYES AND NON-VERBAL. MECHANICAL VENT SETTINGS TOLERATED WELL. NO SOB NOTED. NO PAIN OR DISCOMFORT NOTED VIA FLACC. ON TELE MONITOR READING SINUS RHYTHM AT 88 BPM. IV ACCESS @ L AC#22 AND R AC#22, BOTH PATENT, INTACT AND FLUSHING WELL, SALINE LOCKED. NOTED LEFT CHEST WALL PERMACATH DRESSING C/D/I. ON NEPRO G-TUBE FEEDING AT 75 ML/HR INFUSING, STOPPED AT 1800. WOUND CARE DONE, ALL DUE MEDS GIVEN. KEPT PT, DRY, CLEAN AND COMFORTABLE. SAFETY MEASURES MAINTAINED, WILL ENDORSE TO PM SHIFT.
--- NOTE | 2022-09-04 19:15 | NUR ---
noc rn opening received patient in bed with eyes closed, easy to arouse. no s/s of apparent distress-- vent dependent. not exhibiting pain via flacc. tele monitor reading sr with 82 bpm. Peg tube in place, with tube feeding on standby for now. no iv fluids running. lcw permacath noted in place intact. safety in place. will cont. with plan for patient.
[2022-09-04 20:00] VITALS: BP 164/89
[2022-09-04 21:00] VITALS: BP 149/60
--- NOTE | 2022-09-04 21:00 | NUR ---
bp re-check 149/60 hr 87 will cont. to monitor.
[2022-09-04] MEDS: OLANZAPINE 2.5 MG TABLET GT SCH (21:36)
[2022-09-04] MEDS: INSULIN GLARGINE, 100 UNIT/ML CARTRIDGE SQ SCH (21:50)
[2022-09-05] VITALS (7 sets, daily range): BP systolic 140–162; BP diastolic 47–108
[2022-09-05] MEDS: BLOOD SUGAR DIAGNOSTIC 1 EACH STRIP IN SCH ×4 (00:05→17:43)
[2022-09-05] MEDS: ALBUTEROL FS 2.5 MG/3 ML VIAL.NEB IH SCH ×4 (00:08→17:47)
[2022-09-05] MEDS: INSULIN REGULAR, HUMAN 100 UNIT/ML 3 ML VIAL SQ PRN ×2 (06:16→12:10)
[2022-09-05 07:21] LABS: BASOPHILS # (AUTO) 0.1 K/uL (0.0-0.2); BASOPHILS % (AUTO) 0.5 % (0.0-2.0); EOSINOPHILS % (AUTO) 19.3 % (0.0-6.0); HEMATOCRIT 26 % (33-45); HEMOGLOBIN 8.2 g/dL (11.5-14.8); LYMPHOCYTES # (AUTO) 2.5 K/uL (0.8-4.8); LYMPHOCYTES % (AUTO) 16.5 % (20.0-44.0); MEAN CORPUSCULAR HGB CONC 32 g/dl (31.0-36.0); MEAN CORPUSCULAR VOLUME 96 fL (82-100); MONOCYTES # (AUTO) 1.1 K/uL (0.1-1.30); MONOCYTES % (AUTO) 7.2 % (2.0-12.0); NEUTROPHILS # (AUTO) 8.5 K/uL (1.8-8.9); NEUTROPHILS % (AUTO) 56.5 % (43.0-81.0); PLATELET COUNT (AUTO) 496 K/uL (150-450); WHITE BLOOD COUNT (AUTO) 15.1 K/uL (4.3-11.0)
--- NOTE | 2022-09-05 07:30 | NUR ---
INSULATOR CUTTER AND FORMER OPENING NOTES: RECEIVED PATIENT LYING IN BED . OPENS EYES AND NON-VERBAL. MECHANICAL VENT SETTINGS TOLERATED WELL. NO SOB NOTED. NO PAIN OR DISCOMFORT NOTED VIA FLACC. ON TELE MONITOR READING SINUS RHYTHM . IV ACCESS @ L AC#22 AND R AC#22, BOTH PATENT, INTACT AND FLUSHING WELL, SALINE LOCKED. NOTED LEFT CHEST WALL PERMACATH DRESSING C/D/I. ON NEPRO G-TUBE FEEDING AT 75 ML/HR INFUSING. KEPT PT, DRY, CLEAN AND COMFORTABLE. ALL SAFETY MEASURES MAINTAINED.HEAD OF THE BED ELEVATED FOR ASPIRATION PRECAUTION. WILL CONTINUE TO MONITOR.
--- NOTE | 2022-09-05 07:30 | NUR ---
noc rn closing needs attended. report given to Ani for continuity of patient care.
[2022-09-05] MEDS: LEVOTHYROXINE SODIUM 88 MCG TABLET GT SCH (07:38)
[2022-09-05 07:42] LABS: CALCIUM, SERUM 11.4 mg/dL (8.5-10.1); CARBON DIOXIDE 21 mmol/L (21-32); CHLORIDE 95 mmol/L (98-107); CREATININE 6.6 mg/dL (0.6-1.3); GLUCOSE 226 mg/dL (74-106); MAGNESIUM 3.6 mg/dL (1.8-2.4); PHOSPHORUS 7.1 mg/dL (2.5-4.9); POTASSIUM 4.9 mmol/L (3.5-5.1); SODIUM SERUM 134 mmol/L (136-145)
[2022-09-05 07:45] LABS: UREA NITROGEN, BLOOD 128 mg/dL (7-18)
[2022-09-05] MEDS: PANTOPRAZOLE 40 MG/PACK PACK GT SCH (08:56)
[2022-09-05] MEDS: CHLORHEXIDINE GLUCONATE 15 ML UDC MM SCH ×2 (08:56→21:26)
[2022-09-05] MEDS: DOCUSATE SODIUM 100 MG CAPSULE PO SCH (08:56)
[2022-09-05] MEDS: CARVEDILOL 3.125 MG TABLET GT SCH ×2 (08:56→21:26)
[2022-09-05] MEDS: ASPIRIN 81 MG TAB.CHEW GT SCH (08:59)
[2022-09-05] MEDS: PROSOURCE / PROSTAT (PYXIS) 30 ML UDC GT SCH (08:59)
[2022-09-05] MEDS: CEFEPIME 1 GM in IV D5W 50 ML IV SCH (13:05)
[2022-09-05] MEDS: ALBUMIN 25% 25 GM in PREMIX 1 EA IV PRN (13:46)
[2022-09-05] MEDS: ACETAMINOPHEN 325 MG TABLET PO PRN (17:23)
--- NOTE | 2022-09-05 17:52 | NUR ---
RN NOTES BLOOD SUGAR CHECKED 162. HELD INSULIN SINCE THE G-TUBE WILL BE OFF AT 1800.
--- NOTE | 2022-09-05 18:49 | NUR ---
OLIVE PITTER CLOSING NOTES: PATIENT LYING IN BED . OPENS EYES AND NON-VERBAL. MECHANICAL VENT SETTINGS TOLERATED WELL. NO SOB NOTED. NO PAIN OR DISCOMFORT NOTED VIA FLACC. ON TELE MONITOR READING SINUS RHYTHM . IV ACCESS @ L AC#22 AND R AC#22, BOTH PATENT, INTACT AND FLUSHING WELL, SALINE LOCKED. NOTED LEFT CHEST WALL PERMACATH DRESSING C/D/I. ON NEPRO G-TUBE FEEDING AT 75 ML/HR INFUSING. KEPT PT, DRY, CLEAN AND COMFORTABLE.ALL DUE MEDS GIVEN ORDERED. TREATMENT DONE. HEMODIALYSIS TODAY. OUTPUT WAS 500 ML. ALL SAFETY MEASURES MAINTAINED.HEAD OF THE BED ELEVATED FOR ASPIRATION PRECAUTION. SIDE RAILS UP TIMES 2. CALL LIGHT AND TABLE IN EASY REACH. WILL ENDORSE FOR SALVATORE.
--- NOTE | 2022-09-05 19:30 | NUR ---
STRUCTURES TECHNICIAN OPENING NOTES: RECEIVED PATIENT LYING IN BED . OPENS EYES AND NON-VERBAL. MECHANICAL VENT SETTINGS TOLERATED WELL. NO S/S OF ACUTE DISTRESS NOTED. NO PAIN OR DISCOMFORT NOTED VIA FLACC. ON TELE MONITOR READING SR . IV ACCESS @ L AC#22 AND R AC#22, BOTH PATENT, INTACT AND FLUSHING WELL, S/L. L CHEST PERM CATH. DIALYSIS DONE 10/12 DURING DAY.G TUBE, INTACT AND PATENT. ALL SAFETY MEASURES MAINTAINED.HEAD OF THE BED ELEVATED FOR ASPIRATION PRECAUTION. WILL CONTINUE TO MONITOR THROUGHOUT SHIFT.
--- NOTE | 2022-09-05 20:08 | NUR ---
RN NOTE BLOOD PRESSURE RECHECKED FROM PREVIOUS BEING HIGH PRIOR TO ADMINISTRATION OF MEDS. NEW BP 141/53. NO MEDS GIVEN.
[2022-09-05] MEDS: OLANZAPINE 2.5 MG TABLET GT SCH (21:25)
[2022-09-05] MEDS: INSULIN GLARGINE, 100 UNIT/ML CARTRIDGE SQ SCH (22:20)
[2022-09-06] VITALS: BP 133/63
[2022-09-06] MEDS: ALBUTEROL FS 2.5 MG/3 ML VIAL.NEB IH SCH ×5 (00:03→23:20)
[2022-09-06] MEDS: BLOOD SUGAR DIAGNOSTIC 1 EACH STRIP IN SCH ×5 (00:11→23:37)
[2022-09-06] MEDS: INSULIN REGULAR, HUMAN 100 UNIT/ML 3 ML VIAL SQ PRN ×5 (00:13→23:38)
[2022-09-06] MEDS: NEPRO 1,000 ML BOTTLE GT PRN (02:56)
[2022-09-06 04:00] VITALS: BP 124/51
[2022-09-06 06:40] LABS: BASOPHILS # (AUTO) 0.1 K/uL (0.0-0.2); BASOPHILS % (AUTO) 0.5 % (0.0-2.0); EOSINOPHILS % (AUTO) 18.9 % (0.0-6.0); HEMATOCRIT 25 % (33-45); HEMOGLOBIN 8.1 g/dL (11.5-14.8); LYMPHOCYTES % (AUTO) 15.6 % (20.0-44.0); MEAN CORPUSCULAR HGB CONC 32 g/dl (31.0-36.0); MEAN CORPUSCULAR VOLUME 95 fL (82-100); MONOCYTES % (AUTO) 7.7 % (2.0-12.0); NEUTROPHILS # (AUTO) 7.4 K/uL (1.8-8.9); NEUTROPHILS % (AUTO) 57.3 % (43.0-81.0); PLATELET COUNT (AUTO) 429 K/uL (150-450); RED BLOOD CELL COUNT(AUTO) 2.64 MIL/uL (4.0-5.2); WHITE BLOOD COUNT (AUTO) 12.9 K/uL (4.3-11.0)
--- NOTE | 2022-09-06 06:44 | NUR ---
CANAL EQUIPMENT MECHANIC CLOSING NOTES: PATIENT LYING IN BED . OPENS EYES AND NON-VERBAL. MECHANICAL VENT SETTINGS TOLERATED WELL. NO S/S OF ACUTE DISTRESS NOTED. NO PAIN OR DISCOMFORT NOTED VIA FLACC. ON TELE MONITOR READING SR . IV ACCESS @ L AC#22 AND R AC#22, BOTH PATENT, INTACT AND FLUSHING WELL, S/L. L CHEST PERM CATH..G TUBE, INTACT AND PATENT, RUNNING NEPRO @75ML/HR.ALL DUE MEDS GIVEN. FALL AND SAFETY MEASURES IN PLACE, BED ALARM ON, BED IN LOW AND LOCK POSITION, CALL LIGHT AND TABLE WITHIN EASY REACH, SIDE RAILS UP X2. WILL CONTINUE ENDORSE TO MORNING SHIFT FOR CONTINUIOUS CARE.
--- NOTE | 2022-09-06 07:22 | NUR ---
NEEDLE LOOM TENDER OPENING NOTES: RECEIVED PATIENT SLEEPING IN BED. OPENS EYES AND NON-VERBAL. ON MECHANICAL VENT SETTINGS TOLERATED WELL. NO S/S OF ACUTE DISTRESS NOTED. NO PAIN OR DISCOMFORT NOTED VIA FLACC. ON TELE MONITOR READING SR ST . IV ACCESS @ LAC 22G AND RAC 22G, BOTH PATENT, INTACT AND FLUSHING WELL, S/L. PT HAS SOFT WRIST RESTRAINTS ON RIGHT WRIST AND MITTEN ON RIGHT HAND TO PREVENT HERSELF FROM SCRATCHING. SKIN HAS SCABBING AND SCRATCHES ON RIGHT SIDE OF THIGH. LEFT CHEST PERM CATH. HAS G TUBE, INTACT AND PATENT. ALL SAFETY MEASURES IN PLACE: HEAD OF THE BED ELEVATED FOR ASPIRATION PRECAUTION, SIDE RAILS UP X3, BED IN LOWEST LOCKED POSITION. WILL CONTINUE TO MONITOR
[2022-09-06 07:29] LABS: MAGNESIUM 2.9 mg/dL (1.8-2.4); PHOSPHORUS 5.1 mg/dL (2.5-4.9)
[2022-09-06] MEDS: LEVOTHYROXINE SODIUM 88 MCG TABLET GT SCH (07:34)
[2022-09-06 08:00] VITALS: BP 138/58
[2022-09-06] MEDS: CHLORHEXIDINE GLUCONATE 15 ML UDC MM SCH ×2 (08:13→21:02)
[2022-09-06] MEDS: CARVEDILOL 3.125 MG TABLET GT SCH ×2 (08:13→21:02)
[2022-09-06] MEDS: PROSOURCE / PROSTAT (PYXIS) 30 ML UDC GT SCH (08:13)
[2022-09-06] MEDS: PANTOPRAZOLE 40 MG/PACK PACK GT SCH (08:13)
[2022-09-06] MEDS: ASPIRIN 81 MG TAB.CHEW GT SCH (08:13)
[2022-09-06] MEDS: DOCUSATE SODIUM 100 MG CAPSULE PO SCH (08:13)
[2022-09-06] MEDS: CEFEPIME 1 GM in IV D5W 50 ML IV SCH (12:21)
[2022-09-06] MEDS ORDERED: LIDOCAINE HCL/PF 1% 30 ML VIAL IM ONE (16:00)
--- NOTE | 2022-09-06 16:00 | NUR ---
RN NOTES CALLED NIRMAL TAY (SON) TO OBTAIN CONSENT FOR HEMODIALYSIS CATHETER REMOVAL AND PLACEMENT OF LINE HOLIDAY FOR HEMODIALYSIS.
--- NOTE | 2022-09-06 16:30 | NUR ---
RN NOTES DIALYSIS VIA LEFT CHEST WALL VIA PERMACATH FINISHED WITH 0L OUT. PT TOLERATED PROCEDURE WELL WITH NO ACUTE DISTRESS.
--- NOTE | 2022-09-06 17:08 | NUR ---
RN NOTES DR. MENA REMOVED HD CATHETER FROM LEFT CHEST WALL. NO SIGNS OF BLEEDING NOTED, DRY DRESSING PRESSURE PLACED. CATHETER TIP SENT TO LAB FOR CULTURE.
--- NOTE | 2022-09-06 17:17 | NUR ---
RN NOTE CALLED PHARMACY REGARDING VANCO ADMIN, TROUGH LEVEL 24 FROM 09/05/22. PT HAD DIALYSIS TODAY. PER ASHLY AT PHARMACY, WILL PUT IN ORDER FOR STAT VANCO TROUGH DRAW AND IF LESS THAN 15 TO ADMIN VANCO. WILL ENDORSE TO NEXT SHIFT
--- NOTE | 2022-09-06 18:47 | NUR ---
SENIOR INTERNATIONAL TAX MANAGER CLOSING NOTES PATIENT LYING IN BED. OPENS EYES AND NON-VERBAL. MECHANICAL VENT SETTINGS TOLERATING WELL. NO S/S OF ACUTE DISTRESS NOTED. NO PAIN OR DISCOMFORT NOTED VIA FLACC. ON TELE MONITOR READING SR READING HR 94. IV ACCESS @ L AC 22G. PATENT, INTACT AND FLUSHING WELL, S/L. L CHEST PERM CATH REMOVED TODAY, APPLIED DRY GAUZE DRESSING AND COVERED WITH TRANSPARENT DRESSING. G TUBE, INTACT AND PATENT, RUNNING NEPRO @75ML/HR. ALL DUE MEDS GIVEN. SAFETY MEASURES IN PLACE: BED ALARM ON, BED IN LOW AND LOCK POSITION, CALL LIGHT AND TABLE WITHIN EASY REACH, SIDE RAILS UP X2. WILL ENDORSE TO LABORER PLUMBING FOR CONTINUOUS CARE.
--- NOTE | 2022-09-06 19:30 | NUR ---
ICU SPECIALIST OPENING NOTES RECEIVED PATIENT LYING IN BED AWAKE. OPENS EYES AND NON-VERBAL. BREATHING EVEN AND NON-LABORED. ON MECHANICAL VENT TOLERATING CURRENT SETTINGS WELL. NOT IN APPARENT DISTRESS. NO PAIN OR DISCOMFORT NOTED. ON TELE MONITOR READING SINUS RHYTHM WITH 1ST DEGREE AVB AT 95 BPM. HAS LEFT ANTECUBITAL IV ACCESS #18G AND SALINE LOCKED. NO S/S OF INFILTRATION NOTED. LEFT CHEST WALL DRESSING C/D/I. G-TUBE INTACT, FEEDING COMPLETED FOR TODAY. SAFETY MEASURES IN PLACE: BED LOCKED AND IN LOWEST POSITION, SIDE RAILS UP X3, CALL LIGHT WITHIN REACH. WILL CONTINUE POC.
[2022-09-06 20:00] VITALS: BP 149/54
[2022-09-06] MEDS ORDERED: PAMIDRONATE 30 MG in IV NS 0.9% 500 ML IV ONE (20:00)
--- NOTE | 2022-09-06 20:19 | NUR ---
RN STAFF NOTES CALLED PHARMACY TO FOLLOW-UP ON THE JACK PATEL AND ISACC. WILL DELIVER LATER PER PHARMACIST.
[2022-09-06] MEDS: OLANZAPINE 2.5 MG TABLET GT SCH (21:04)
[2022-09-06] MEDS: ACETAMINOPHEN 325 MG TABLET PO PRN (21:04)
--- NOTE | 2022-09-06 21:07 | NUR ---
DOCTOR OF NAPRAPATHY NOTES PATIENT NOTED WITH MILD FEVER OF 100.3. ADMINISTERED PRN TYLENOL. WILL CONTINUE TO MONITOR,
[2022-09-06] MEDS: THERAHONEY GEL 1.5 OZ TUBE TP SCH (21:09)
[2022-09-06] MEDS: INSULIN GLARGINE, 100 UNIT/ML CARTRIDGE SQ SCH (21:33)
[2022-09-07] VITALS: BP 149/77
[2022-09-07] MEDS: NEPRO 1,000 ML BOTTLE GT PRN (03:41)
[2022-09-07 04:00] VITALS: BP 142/67
[2022-09-07] MEDS: ALBUTEROL FS 2.5 MG/3 ML VIAL.NEB IH SCH ×4 (05:21→23:47)
[2022-09-07] MEDS: BLOOD SUGAR DIAGNOSTIC 1 EACH STRIP IN SCH ×3 (05:40→17:40)
[2022-09-07] MEDS: INSULIN REGULAR, HUMAN 100 UNIT/ML 3 ML VIAL SQ PRN ×3 (05:40→17:39)
--- NOTE | 2022-09-07 07:02 | NUR ---
KNOT PICKER CLOTH CLOSING NOTES PATIENT LYING IN BED SLEEPING INTERMITTENTLY. RESTLESS. NO SOB OR NOTED. TOLERATING CURRENT MECHANICAL VENT SETTINGS WELL. NO S/S OF PAIN OR DISCOMFORT NOTED. AFEBRILE. ON TELE MONITOR READING SINUS RHYTHM WITH 1ST DEGREE AVB AT 88 BPM. HAS LEFT ANTECUBITAL IV ACCESS #18G AND SALINE LOCKED. INTACT, PATENT AND FLUSHING. ON NEPRO G-TUBE FEEDING INFUSING AT 75 ML/HR. NO RESIDUAL. LEFT CHEST WALL DRESSING C/D/I. RIGHT SOFT WRIST RESTRAINT AND MITTEN ON. SKIN AND PERINEAL CARE RENDERED. ALL DUE MEDS GIVEN AND NEEDS ATTENDED. SAFETY MEASURES MAINTAINED. WILL ENDORSE TO NEXT SHIFT FOR SALVATORE.
--- NOTE | 2022-09-07 07:27 | NUR ---
FLOOR FINISHER HELPER OPENING NOTES RECEIVED PATIENT LYING IN BED AWAKE. OPENS EYES AND NON-VERBAL. BREATHING EVEN AND NON-LABORED. ON MECHANICAL VENT TOLERATING CURRENT SETTINGS WELL. NOT IN APPARENT DISTRESS. NO PAIN OR DISCOMFORT NOTED. ON TELE MONITOR READING SINUS RHYTHM WITH HR AT 87 BPM. HAS LEFT ANTECUBITAL IV ACCESS 18G AND SALINE LOCKED. NO S/S OF INFILTRATION NOTED. LEFT CHEST WALL DRESSING C/D/I. G-TUBE INTACT. SAFETY MEASURES IN PLACE: BED LOCKED AND IN LOWEST POSITION, SIDE RAILS UP X3, CALL LIGHT WITHIN REACH. WILL CONTINUE TO MONITOR
[2022-09-07] MEDS: LEVOTHYROXINE SODIUM 88 MCG TABLET GT SCH (08:29)
[2022-09-07] MEDS: PANTOPRAZOLE 40 MG/PACK PACK GT SCH (08:47)
[2022-09-07] MEDS: ASPIRIN 81 MG TAB.CHEW GT SCH (08:47)
[2022-09-07] MEDS: CARVEDILOL 3.125 MG TABLET GT SCH ×2 (08:48→21:13)
[2022-09-07] MEDS: DOCUSATE SODIUM 100 MG CAPSULE PO SCH (08:48)
[2022-09-07] MEDS: CHLORHEXIDINE GLUCONATE 15 ML UDC MM SCH ×2 (08:48→21:12)
[2022-09-07] MEDS: PROSOURCE / PROSTAT (PYXIS) 30 ML UDC GT SCH (08:48)
[2022-09-07] MEDS: THERAHONEY GEL 1.5 OZ TUBE TP SCH (09:43)
[2022-09-07 10:05] LABS: CALCIUM, SERUM 10.3 mg/dL (8.5-10.1); CARBON DIOXIDE 24 mmol/L (21-32); CHLORIDE 93 mmol/L (98-107); CREATININE 5.1 mg/dL (0.6-1.3); GLUCOSE 178 mg/dL (74-106); MAGNESIUM 2.9 mg/dL (1.8-2.4); PHOSPHORUS 5.5 mg/dL (2.5-4.9); POTASSIUM 4.3 mmol/L (3.5-5.1); SODIUM SERUM 132 mmol/L (136-145)
[2022-09-07 10:25] LABS: UREA NITROGEN, BLOOD 88 mg/dL (7-18)
[2022-09-07 10:57] LABS: BASOPHILS # (AUTO) 0.1 K/uL (0.0-0.2); BASOPHILS % (AUTO) 0.7 % (0.0-2.0); EOSINOPHILS % (AUTO) 19.6 % (0.0-6.0); HEMATOCRIT 27 % (33-45); HEMOGLOBIN 8.5 g/dL (11.5-14.8); LYMPHOCYTES # (AUTO) 2.2 K/uL (0.8-4.8); LYMPHOCYTES % (AUTO) 17.8 % (20.0-44.0); MEAN CORPUSCULAR HGB CONC 32 g/dl (31.0-36.0); MEAN CORPUSCULAR VOLUME 95 fL (82-100); MONOCYTES # (AUTO) 1.4 K/uL (0.1-1.30); MONOCYTES % (AUTO) 11.5 % (2.0-12.0); NEUTROPHILS # (AUTO) 6.1 K/uL (1.8-8.9); NEUTROPHILS % (AUTO) 50.4 % (43.0-81.0); PLATELET COUNT (AUTO) 409 K/uL (150-450); WHITE BLOOD COUNT (AUTO) 12.2 K/uL (4.3-11.0)
[2022-09-07] MEDS: CEFEPIME 1 GM in IV D5W 50 ML IV SCH (12:02)
--- NOTE | 2022-09-07 18:47 | NUR ---
DESCRIPTIVE CATALOG LIBRARIAN CLOSING NOTES: PT IN BED AWAKE AT THIS TIME. HOB ELEVATED. PT IS NON-VERBAL AND OPEN EYES TO STIMULI. PATIENT WITH TRACH SHILEY #6XLT ATTACHED TO MECHANICAL VENTILATOR AND TOLERATING CURRENT SETTINGS WELL, NO SOB NOTED DURING SHIFT. PATIENT WITH SOFT RIGHT WRIST RESTRAINT IN PLACE D/T PT PULLING ON TUBES, CIRCULATION WNL. CURRENT TELE-MONITOR READS NSR WITH 1ST DEGREE HEART BLOCK, HR ON THE 80'S AT THIS TIME. G-TUBE IN PLACE AND PATENT, FEEDING OFF AT THIS TIME AND WILL RESUME AT 1200. ASPIRATION PRECAUTIONS MAINTAINED. IV ACCESS ON RAC #18, SL, INTACT AND FLUSHING WELL. PT TURNED AND REPOSITIONED Q 2HRS AND PRN, ALL NEEDS AND CARE PROVIDED WELL. SAFETY MEASURES IN PLACE: BED IN LOWEST LOCKED POSITION WITH SR -UP X3. BED ALARM ON AND CALL LIGHT W/I EASY REACH. WILL ENDORSE SALVATORE TO FLOOR FINISHER HELPER NURSE.
--- NOTE | 2022-09-07 19:30 | NUR ---
WEEKEND ANCHOR OPENING NOTES RECEIVED PATIENT LYING IN BED AWAKE. NON-VERBAL AND OPENS EYES. BREATHING EVEN AND NON-LABORED. WITH TRACH CONNECTED TO MECHANICAL VENT TOLERATING CURRENT SETTINGS WELL. NOT IN APPARENT DISTRESS. NO PAIN OR DISCOMFORT NOTED. ON TELE MONITOR READING SINUS RHYTHM AT 85 BPM. HAS LEFT ANTECUBITAL IV ACCESS #18G AND SALINE LOCKED. NO S/S OF INFILTRATION NOTED. HAS G-TUBE IN PLACE, FEEDING OFF. RIGHT SOFT WRIST RESTRAINT AND MITTEN ON, SKIN COLOR AND CIRCULATION CHECKED. SAFETY PRECAUTIONS IN PLACE: BED LOW AND LOCKED, SIDE RAILS UP X3, CALL LIGHT WITHIN REACH. WILL CONTINUE POC.
[2022-09-07 20:00] VITALS: BP 125/91
[2022-09-07] MEDS: OLANZAPINE 2.5 MG TABLET GT SCH (21:13)
[2022-09-07] MEDS: INSULIN GLARGINE, 100 UNIT/ML CARTRIDGE SQ SCH (21:21)
[2022-09-07 22:00] VITALS: BP 125/91
[2022-09-08] VITALS: BP 110/95
[2022-09-08] MEDS: NEPRO 1,000 ML BOTTLE GT PRN (00:09)
[2022-09-08] MEDS: INSULIN REGULAR, HUMAN 100 UNIT/ML 3 ML VIAL SQ PRN ×4 (00:25→17:36)
[2022-09-08] MEDS: BLOOD SUGAR DIAGNOSTIC 1 EACH STRIP IN SCH ×4 (00:25→17:34)
[2022-09-08 04:00] VITALS: BP 116/72
[2022-09-08] MEDS: ALBUTEROL FS 2.5 MG/3 ML VIAL.NEB IH SCH ×4 (05:41→23:19)
[2022-09-08 07:00] VITALS: BP 150/62
--- NOTE | 2022-09-08 07:13 | NUR ---
POINTER HELPER CLOSING NOTES PATIENT LYING IN BED SLEEPING INTERMITTENTLY. OPENS EYES AND IS ALERT. NO SOB OR NOTED. TOLERATING CURRENT MECHANICAL VENT SETTINGS WELL. NO ACUTE DISTRESS NOTED. NO PAIN OR DISCOMFORT NOTED. AFEBRILE. ON TELE MONITOR READING SINUS RHYTHM AT 93 BPM. HAS LEFT ANTECUBITAL IV ACCESS #18G AND SALINE LOCKED. INTACT, PATENT AND FLUSHING. ON NEPRO G-TUBE FEEDING INFUSING WELL AT 75 ML/HR. NO RESIDUAL NOTED. RIGHT SOFT WRIST RESTRAINT ON. WOUND CARE RENDERED. ALL DUE MEDS GIVEN AND NEEDS ATTENDED. SAFETY PRECAUTIONS MAINTAINED. WILL ENDORSE TO NEXT SHIFT FOR SALVATORE.
[2022-09-08 07:26] LABS: CALCIUM, SERUM 10.8 mg/dL (8.5-10.1); CARBON DIOXIDE 20 mmol/L (21-32); CHLORIDE 91 mmol/L (98-107); GLUCOSE 206 mg/dL (74-106); MAGNESIUM 3.2 mg/dL (1.8-2.4); PHOSPHORUS 6.7 mg/dL (2.5-4.9); POTASSIUM 4.7 mmol/L (3.5-5.1); SODIUM SERUM 130 mmol/L (136-145)
[2022-09-08 07:35] LABS: BASOPHILS # (AUTO) 0.1 K/uL (0.0-0.2); BASOPHILS % (AUTO) 0.6 % (0.0-2.0); EOSINOPHILS % (AUTO) 20.5 % (0.0-6.0); HEMATOCRIT 29 % (33-45); HEMOGLOBIN 8.2 g/dL (11.5-14.8); LYMPHOCYTES # (AUTO) 1.9 K/uL (0.8-4.8); MEAN CORPUSCULAR HGB CONC 29 g/dl (31.0-36.0); MEAN CORPUSCULAR VOLUME 105 fL (82-100); MONOCYTES % (AUTO) 8.9 % (2.0-12.0); NEUTROPHILS # (AUTO) 5.9 K/uL (1.8-8.9); PLATELET COUNT (AUTO) 374 K/uL (150-450); RED BLOOD CELL COUNT(AUTO) 2.76 MIL/uL (4.0-5.2); WHITE BLOOD COUNT (AUTO) 11.1 K/uL (4.3-11.0)
--- NOTE | 2022-09-08 08:00 | NUR ---
RN OPENING NOTE PATIENT RECEIVED IN BED, GOOD EYE CONTACT, ABLE TO RESPONDS ALL STIMULI. IN NO ACUTE DISTRESS NOTED. RESPIRATORY EVEN AND UNLABORED WITH ON VENTILATOR. SKIN IS WARM TO TOUCH, KEEP CLEAN/DRY. TUBE FEEDING RUNNING AT 75ML/HR X 16 HOURS/DAY. KEPT ELEVATED HOB FOR ENSURE AIRWAY AND ASPIRATION PRECAUTION, ALSO LOWEST POSITION OF THE BED, S/R UP X 2, BED ALARM IS ON AT ALL THE TIMES. ALL SAFETY PRECAUTION APPLIED. CALL LIGHT WITHIN REACH, WILL CONTINUE TO MONITOR.
[2022-09-08] MEDS: PANTOPRAZOLE 40 MG/PACK PACK GT SCH (08:22)
[2022-09-08] MEDS: CHLORHEXIDINE GLUCONATE 15 ML UDC MM SCH ×2 (08:22→20:57)
[2022-09-08] MEDS: PROSOURCE / PROSTAT (PYXIS) 30 ML UDC GT SCH (08:22)
[2022-09-08] MEDS: DOCUSATE SODIUM 100 MG CAPSULE PO SCH (08:23)
[2022-09-08] MEDS: LEVOTHYROXINE SODIUM 88 MCG TABLET GT SCH (08:23)
[2022-09-08] MEDS: ASPIRIN 81 MG TAB.CHEW GT SCH (08:23)
[2022-09-08] MEDS: THERAHONEY GEL 1.5 OZ TUBE TP SCH (08:24)
[2022-09-08] MEDS: CARVEDILOL 3.125 MG TABLET GT SCH ×2 (08:32→20:57)
[2022-09-08 09:03] LABS: UREA NITROGEN, BLOOD 113 mg/dL (7-18)
[2022-09-08 12:00] VITALS: BP 139/64
[2022-09-08] MEDS: CEFEPIME 1 GM in IV D5W 50 ML IV SCH (13:35)
--- NOTE | 2022-09-08 17:49 | NUR ---
RECEIVED PATIENT ON VENT SETTINGS OF AC 18, VT 550, FIO2 30%, PEEP 5. HAS A TRACH SHILEY 6XLT CUFFED. AIRWAY PATENT AND SECURE. Q2 VENT CHECK, SUCTION PRN. Q6 INLINE HHN TXS FAY WELL WITH NO ADVERSE REACTION NOTED. AMBU BAG AND EMERGENCY TRACH AT THE BEDSIDE. VENT PLUGGED INTO RED OUTLET. ALARMS SET AND AUDIBLE. SMALL YELLOW THIN SECRETIONS NOTED.
--- NOTE | 2022-09-08 18:00 | NUR ---
RN CLOSING NOTE PATIENT IN BED RESTING. IN NO ACUTE DISTRESS NOTED. RESPIRATORY EVEN AND UNLABORED WITH ON VENTILATOR. SKIN IS WARM TO TOUCH, KEEP CLEAN/DRY, INTACT NEW IV LINE. KEPT ELEVATED HOB FOR ENSURE AIRWAY AND ASPIRATION PRECAUTION. BED IN LOWEST POSITION AND LOCKED. BED ALARM IS ON AT ALL THE TIMES. ALL SAFETY MEASURED IN PLACED. CALL LIGHT WITHIN REACH, WILL ENDORSED TO NEXT SHIFT.
--- NOTE | 2022-09-08 18:05 | NUR ---
RN CLOSING NOTE PATIENT IS RESTING IN BED. IN NO ACUTE DISTRESS NOTED. RESPIRATORY EVEN AND UNLABORED ON ROOM AIR. SKIN IS WARM TO TOUCH, KEEP CLEAN/DRY, INTACT IV LINE, NO RESIDUAL OBSERVED FROM TUBE FEEDING. KEPT ELEVATED HOB FOR ENSURE AIRWAY AND ASPIRATION PRECAUTION. BED IN LOWEST POSITION AND LOCKED. BED ALARM IS ON AT ALL THE TIMES. ALL SAFETY MEASURED IN PLACED. CALL LIGHT WITHIN REACH, WILL ENDORSED TO NEXT SHIFT.
[2022-09-08 18:24] LABS: BAND % (MANUAL) 3 % (0.0-5.0); EOSINOPHILS % (MANUAL) 17 % (0-4); LYMPHOCYTES % (MANUAL) 23 % (16-48); MONOCYTES % (MANUAL) 2 % (0-11.0); NEUTROPHILS % (MANUAL) 55 (42-76)
[2022-09-08 20:00] VITALS: BP 152/73
--- NOTE | 2022-09-08 20:07 | NUR ---
noc rn opening received patient in bed with eyes open, non-verbal with trach. no s/s of apparent distress-- vent dependednt. soft wrist restraint on right hand noted in place, with r. wrist iv access in place. not exhibiting pain via flacc. tele monitor reading sr with 94 bpm. Peg tube in place, patent, with tube feeding on standby for now. safety in place. will cont. with plan for patient.
[2022-09-08] MEDS: OLANZAPINE 2.5 MG TABLET GT SCH (21:57)
[2022-09-08] MEDS: INSULIN GLARGINE, 100 UNIT/ML CARTRIDGE SQ SCH (21:58)
[2022-09-09] VITALS (7 sets, daily range): BP systolic 142–160; BP diastolic 53–98
[2022-09-09] MEDS: NEPRO 1,000 ML BOTTLE GT PRN (00:03)
[2022-09-09] MEDS: BLOOD SUGAR DIAGNOSTIC 1 EACH STRIP IN SCH ×4 (00:13→17:21)
[2022-09-09] MEDS: INSULIN REGULAR, HUMAN 100 UNIT/ML 3 ML VIAL SQ PRN ×4 (00:24→17:23)
[2022-09-09] MEDS: ALBUTEROL FS 2.5 MG/3 ML VIAL.NEB IH SCH ×3 (05:30→19:41)
--- NOTE | 2022-09-09 06:43 | NUR ---
noc rn closing patient in bed with eyes closed, easy to arouse. mech vent dependent. no s/s of apparent distress. not exhibiting pain via flacc. rt. soft wrsit restraints in place with mittens-- patient still able to scratch without mittens and noted to have new self inflicted scratches-- wound tx done. tele monitor reading sr with 91 bpm and 1st degree AV block. G-tube running Nepro @75mls/hr. r. wrist #22G in saline lock. did not exhibit fever throughout shift. safety kept in place. all needs attended. all scheduled medications administered. will endorse to morning shift rn for continuity of patient care.
[2022-09-09] MEDS: PROSOURCE / PROSTAT (PYXIS) 30 ML UDC GT SCH (08:16)
[2022-09-09] MEDS: LEVOTHYROXINE SODIUM 88 MCG TABLET GT SCH (08:18)
[2022-09-09] MEDS: PANTOPRAZOLE 40 MG/PACK PACK GT SCH (08:18)
[2022-09-09] MEDS: DOCUSATE SODIUM 100 MG CAPSULE PO SCH (08:18)
[2022-09-09] MEDS: CARVEDILOL 3.125 MG TABLET GT SCH ×2 (08:18→20:54)
[2022-09-09] MEDS: CHLORHEXIDINE GLUCONATE 15 ML UDC MM SCH ×2 (08:19→20:54)
[2022-09-09] MEDS: THERAHONEY GEL 1.5 OZ TUBE TP SCH (08:19)
[2022-09-09] MEDS: ASPIRIN 81 MG TAB.CHEW GT SCH (08:19)
[2022-09-09 10:05] LABS: BASOPHILS # (AUTO) 0.1 K/uL (0.0-0.2); BASOPHILS % (AUTO) 0.9 % (0.0-2.0); EOSINOPHILS % (AUTO) 21.9 % (0.0-6.0); HEMATOCRIT 25 % (33-45); HEMOGLOBIN 8.1 g/dL (11.5-14.8); LYMPHOCYTES # (AUTO) 2.3 K/uL (0.8-4.8); LYMPHOCYTES % (AUTO) 17.7 % (20.0-44.0); MEAN CORPUSCULAR HGB CONC 32 g/dl (31.0-36.0); MEAN CORPUSCULAR VOLUME 95 fL (82-100); MONOCYTES # (AUTO) 1.1 K/uL (0.1-1.30); MONOCYTES % (AUTO) 8.7 % (2.0-12.0); NEUTROPHILS # (AUTO) 6.6 K/uL (1.8-8.9); NEUTROPHILS % (AUTO) 50.8 % (43.0-81.0); PLATELET COUNT (AUTO) 396 K/uL (150-450); RED BLOOD CELL COUNT(AUTO) 2.65 MIL/uL (4.0-5.2); WHITE BLOOD COUNT (AUTO) 13.1 K/uL (4.3-11.0)
[2022-09-09 10:42] LABS: CALCIUM, SERUM 11.6 mg/dL (8.5-10.1); CARBON DIOXIDE 21 mmol/L (21-32); CHLORIDE 91 mmol/L (98-107); CREATININE 7.3 mg/dL (0.6-1.3); GLUCOSE 201 mg/dL (74-106); MAGNESIUM 3.7 mg/dL (1.8-2.4); PHOSPHORUS 7.6 mg/dL (2.5-4.9); POTASSIUM 4.9 mmol/L (3.5-5.1); SODIUM SERUM 131 mmol/L (136-145)
[2022-09-09 10:52] LABS: UREA NITROGEN, BLOOD 136 mg/dL (7-18)
--- NOTE | 2022-09-09 11:00 | NUR ---
PATIENT NOTED BUN LEVEL 136 CH, INFORMED DR. LAWSON, WHO MENTIONED "WE WILL MONITOR FOR NOW" NO NEW ORDER AT THIS TIME. WILL CONTINUE TO MONITOR.
[2022-09-09] MEDS: CEFEPIME 1 GM in IV D5W 50 ML IV SCH (12:03)
--- NOTE | 2022-09-09 18:00 | NUR ---
RN CLOSING NOTE PATIENT IN BED RESTING. IN NO ACUTE DISTRESS NOTED. RESPIRATORY EVEN AND UNLABORED WITH ON VENTILATOR. SKIN IS WARM TO TOUCH, KEEP CLEAN/DRY, INTACT IV LINE. KEPT ELEVATED HOB FOR ENSURE AIRWAY AND ASPIRATION PRECAUTION. BED IN LOWEST POSITION AND LOCKED. BED ALARM IS ON AT ALL THE TIMES. ALL SAFETY MEASURED IN PLACED. CALL LIGHT WITHIN REACH, WILL ENDORSED TO NEXT SHIFT.
--- NOTE | 2022-09-09 18:34 | NUR ---
RN OPENING NOTE PATIENT RECEIVED IN BED, NON VERBAL, ABLE TO RESPONDS ALL STIMULI. IN NO ACUTE DISTRESS NOTED. RESPIRATORY EVEN AND UNLABORED WITH ON VENTILATOR. SOFT WRIST RESTRAIN ON HER RIGHT WRIST FOR SAFETY. SKIN IS WARM TO TOUCH, KEEP CLEAN/DRY. TUBE FEEDING RUNNING AT 75ML/HR X 16 HOURS/DAY, NO RESIDUAL OBSERVED FROM G-TUBE. KEPT ELEVATED HOB FOR ENSURE AIRWAY AND ASPIRATION PRECAUTION, ALSO LOWEST POSITION OF THE BED, S/R UP X 2, BED ALARM IS ON AT ALL THE TIMES. ALL SAFETY PRECAUTION APPLIED. CALL LIGHT WITHIN REACH, WILL CONTINUE TO MONITOR. Addendum: 09/09/22 at 1849 by GUERRERO LAWS RN ERROR
--- NOTE | 2022-09-09 19:49 | NUR ---
noc rn opening received patient in bed, opens eyes, with rt. soft wrist restraints and mitten. no s/s of apparent distress-- mech vent dependent. not exhibiting pain via flacc. no fluids running at this time. G-tube patent with feeding on standby. tele monitor reading sr with [address] will continue with patient's plan of care.
--- NOTE | 2022-09-09 20:42 | NUR ---
bp re-check 153/53 hr-87
[2022-09-09] MEDS: OLANZAPINE 2.5 MG TABLET GT SCH (21:59)
[2022-09-09] MEDS: INSULIN GLARGINE, 100 UNIT/ML CARTRIDGE SQ SCH (22:03)
[2022-09-10] MEDS: INSULIN REGULAR, HUMAN 100 UNIT/ML 3 ML VIAL SQ PRN ×4 (00:04→17:34)
[2022-09-10] MEDS: BLOOD SUGAR DIAGNOSTIC 1 EACH STRIP IN SCH ×4 (00:04→17:29)
[2022-09-10] MEDS: NEPRO 1,000 ML BOTTLE GT PRN ×2 (00:05→15:25)
[2022-09-10 00:08] VITALS: BP 114/52
[2022-09-10] MEDS: ALBUTEROL FS 2.5 MG/3 ML VIAL.NEB IH SCH ×4 (01:34→20:43)
[2022-09-10 03:45] VITALS: BP 140/48
--- NOTE | 2022-09-10 06:31 | NUR ---
noc rn closing patient in bed with eyes closed, easy to arouse. mech vent dependent. no s/s of apparent distress. not exhibiting pain via flacc. rt. soft wrsit restraints in place with mittens-- patient still able to scratch without mittens and noted to have new self inflicted scratches-- wound tx done. tele monitor reading sr with 88 bpm. G-tube running Nepro @75mls/hr. r. wrist #22G in saline lock. did not exhibit fever throughout shift. safety kept in place. all needs attended. all scheduled medications administered. will endorse to morning shift rn for continuity of patient care.
--- NOTE | 2022-09-10 07:20 | NUR ---
RN OPENING NOTE PATIENT RECEIVED IN BED, NON VERBAL, ABLE TO RESPONDS ALL STIMULI. ON VENTILATOR. NOT IN ACUTE DISTRESS, NO S/S OF SOB NOTED. SOFT WRIST RESTRAIN ON HER RIGHT WRIST FOR SAFETY. SKIN IS WARM TO TOUCH, KEEP CLEAN/DRY. TUBE FEEDING RUNNING AT 75ML/HR X 16 HOURS/DAY, NO RESIDUAL OBSERVED FROM G-TUBE. KEPT ELEVATED HOB FOR ENSURE AIRWAY AND ASPIRATION PRECAUTION, ALSO LOWEST POSITION OF THE BED, S/R UP X 2, BED ALARM IS ON AT ALL THE TIMES. ALL SAFETY PRECAUTION APPLIED.WILL CONTINUE TO MONITOR
[2022-09-10 07:37] LABS: CALCIUM, SERUM 11.7 mg/dL (8.5-10.1); CARBON DIOXIDE 22 mmol/L (21-32); CHLORIDE 91 mmol/L (98-107); GLUCOSE 215 mg/dL (74-106); MAGNESIUM 3.7 mg/dL (1.8-2.4); POTASSIUM 5.2 mmol/L (3.5-5.1); SODIUM SERUM 132 mmol/L (136-145)
[2022-09-10 08:13] LABS: CREATININE 8.2 mg/dL (0.6-1.3); UREA NITROGEN, BLOOD 159 mg/dL (7-18)
[2022-09-10 08:14] VITALS: BP 130/62
[2022-09-10] MEDS: DOCUSATE SODIUM 100 MG CAPSULE PO SCH (08:55)
[2022-09-10] MEDS: LEVOTHYROXINE SODIUM 88 MCG TABLET GT SCH (08:55)
[2022-09-10] MEDS: PANTOPRAZOLE 40 MG/PACK PACK GT SCH (08:55)
[2022-09-10] MEDS: CARVEDILOL 3.125 MG TABLET GT SCH ×2 (08:56→21:34)
[2022-09-10] MEDS: CHLORHEXIDINE GLUCONATE 15 ML UDC MM SCH ×2 (08:56→21:33)
[2022-09-10] MEDS: ASPIRIN 81 MG TAB.CHEW GT SCH (08:59)
[2022-09-10] MEDS: PROSOURCE / PROSTAT (PYXIS) 30 ML UDC GT SCH (09:00)
[2022-09-10 09:09] LABS: BASOPHILS # (AUTO) 0.1 K/uL (0.0-0.2); BASOPHILS % (AUTO) 0.7 % (0.0-2.0); EOSINOPHILS % (AUTO) 20.3 % (0.0-6.0); HEMATOCRIT 27 % (33-45); HEMOGLOBIN 8.5 g/dL (11.5-14.8); LYMPHOCYTES # (AUTO) 2.5 K/uL (0.8-4.8); LYMPHOCYTES % (AUTO) 16.8 % (20.0-44.0); MEAN CORPUSCULAR HGB CONC 32 g/dl (31.0-36.0); MEAN CORPUSCULAR VOLUME 95 fL (82-100); MONOCYTES # (AUTO) 1.2 K/uL (0.1-1.30); MONOCYTES % (AUTO) 8.3 % (2.0-12.0); NEUTROPHILS # (AUTO) 8.1 K/uL (1.8-8.9); NEUTROPHILS % (AUTO) 53.9 % (43.0-81.0); PLATELET COUNT (AUTO) 416 K/uL (150-450); RED BLOOD CELL COUNT(AUTO) 2.78 MIL/uL (4.0-5.2)
[2022-09-10] MEDS: THERAHONEY GEL 1.5 OZ TUBE TP SCH (09:22)
[2022-09-10 15:39] VITALS: BP 114/48
[2022-09-10 16:55] LABS: EOSINOPHILS % (MANUAL) 22 % (0-4); LYMPHOCYTES % (MANUAL) 18 % (16-48); MONOCYTES % (MANUAL) 2 % (0-11.0); NEUTROPHILS % (MANUAL) 58 (42-76)
--- NOTE | 2022-09-10 17:45 | NUR ---
Dr. Suarez contacted regarding HD cath placement. He stated that he will be able to insert cath on Saturday.
--- NOTE | 2022-09-10 18:29 | NUR ---
RN CLOSING NOTES PATIENT LYING IN BED. OPENS EYES AND NON-VERBAL. MECHANICAL VENT SETTINGS TOLERATING WELL. NO S/S OF ACUTE DISTRESS NOTED. NO PAIN OR DISCOMFORT NOTED. G TUBE, INTACT AND PATENT, RUNNING NEPRO @75ML/HR. ALL DUE MEDS GIVEN. MORNING CARE RENDERED, 2 HOURLY TURNING DONE, KEPT COMFORTABLE. SAFETY MEASURES IN PLACE: BED ALARM ON, BED IN LOW AND LOCK POSITION, CALL LIGHT AND TABLE WITHIN EASY REACH, SIDE RAILS UP X2. WILL ENDORSE TO VERTICAL CONTOUR BAND SAW OPERATOR FOR CONTINUOUS CARE.
[2022-09-10 20:00] VITALS: BP 164/54
--- NOTE | 2022-09-10 20:09 | NUR ---
MS/TELE/RN RECEIVE PATIENT APPEARS SLEEPING, APPEARS COMFORTABLE, NO SIGNS OF DISTRESS NOTE, ON MECHANICAL VENTILATOR, G TUBE FEEDING INFUSING, HOB ELEVATED, WILL MONITOR.
[2022-09-10] MEDS: OLANZAPINE 2.5 MG TABLET GT SCH (21:33)
[2022-09-10] MEDS: INSULIN GLARGINE, 100 UNIT/ML CARTRIDGE SQ SCH (21:37)
--- NOTE | 2022-09-10 23:14 | NUR ---
MS/TELE/RN PATIENT IS SLEEPING, APPEARS COMFORTABLE, NO SIGNS OF DISTRESS NOTED, CALL LIGHT INREACH, WILL CONTINUE TO MONITOR.
[2022-09-11] MEDS: BLOOD SUGAR DIAGNOSTIC 1 EACH STRIP IN SCH ×4 (00:08→17:20)
[2022-09-11] MEDS: INSULIN REGULAR, HUMAN 100 UNIT/ML 3 ML VIAL SQ PRN ×4 (00:11→17:27)
[2022-09-11] MEDS: ALBUTEROL FS 2.5 MG/3 ML VIAL.NEB IH SCH ×4 (02:14→20:41)
--- NOTE | 2022-09-11 06:00 | NUR ---
MS/TELE/RN PATIENT APPEARS SLEEPING AT THIS TIME, APPEARS COMFORTABLE, NO SIGNS OF DISTRESS NOTED, CALL LIGHT IN REACH, ALL NEEDS ATTENDED AT THIS TIME, WILL CONTINUE TO MONITOR.
--- NOTE | 2022-09-11 07:30 | NUR ---
RN OPENING NOTE PATIENT RECEIVED IN BED, NON VERBAL, ABLE TO RESPONDS ALL STIMULI. IN NO ACUTE DISTRESS NOTED. RESPIRATORY EVEN AND UNLABORED, ON VENTILATOR. SOFT WRIST RESTRAIN ON HER RIGHT WRIST FOR SAFETY. SKIN IS WARM TO TOUCH, KEEP CLEAN/DRY. TUBE FEEDING RUNNING AT 75ML/HR X 16 HOURS/DAY, NO RESIDUAL OBSERVED FROM G-TUBE. KEPT ELEVATED HOB FOR ENSURE AIRWAY AND ASPIRATION PRECAUTION, ALSO LOWEST POSITION OF THE BED, S/R UP X 2, BED ALARM IS ON AT ALL THE TIMES. ALL SAFETY PRECAUTION APPLIED. CALL LIGHT WITHIN REACH, WILL CONTINUE TO MONITOR.
[2022-09-11 07:41] LABS: CALCIUM, SERUM 12.6 mg/dL (8.5-10.1); CARBON DIOXIDE 19 mmol/L (21-32); CHLORIDE 90 mmol/L (98-107); GLUCOSE 151 mg/dL (74-106); POTASSIUM 5.9 mmol/L (3.5-5.1); SODIUM SERUM 134 mmol/L (136-145)
[2022-09-11 08:14] LABS: CREATININE 8.9 mg/dL (0.6-1.3)
[2022-09-11 08:15] LABS: UREA NITROGEN, BLOOD 180 mg/dL (7-18)
[2022-09-11 09:20] VITALS: BP 160/67
[2022-09-11] MEDS: DOCUSATE SODIUM 100 MG CAPSULE PO SCH (09:23)
[2022-09-11] MEDS: LEVOTHYROXINE SODIUM 88 MCG TABLET GT SCH (09:23)
[2022-09-11] MEDS: CARVEDILOL 3.125 MG TABLET GT SCH ×2 (09:25→22:43)
[2022-09-11] MEDS: PROSOURCE / PROSTAT (PYXIS) 30 ML UDC GT SCH (09:25)
[2022-09-11] MEDS: THERAHONEY GEL 1.5 OZ TUBE TP SCH (09:25)
[2022-09-11] MEDS: CHLORHEXIDINE GLUCONATE 15 ML UDC MM SCH ×2 (09:25→22:45)
[2022-09-11] MEDS: ASPIRIN 81 MG TAB.CHEW GT SCH (09:25)
[2022-09-11] MEDS: PANTOPRAZOLE 40 MG/PACK PACK GT SCH (09:25)
[2022-09-11] MEDS ORDERED: SODIUM POLYSTYRENE SULF. PWD 15 GM UDC PO ONE (11:30)
[2022-09-11] MEDS: NEPRO 1,000 ML BOTTLE GT PRN (15:40)
[2022-09-11 16:12] VITALS: BP 149/75
--- NOTE | 2022-09-11 19:35 | NUR ---
CONTENT MANAGEMENT CONSULTANT OPENING NOTES RECEIVED PATIENT IN BED; AWAKE AND NON-VERBAL. BREATHING EVEN AND NONLABORED. WITH TRACH ATTACHED TO [facility]; TOLERATING CURRENT SETTINGS WELL. NOT IN ANY FORM OF RESPIRATORY DISTRESS. NO S/S OF PAIN OR DISCOMFORT NOTED AT THIS TIME. ON TELE MONITOR READING SINUS RHYTHM AT 98 BPM WITH 1ST DEGREE AV BLOCK. WITH IV ACCESS ON RIGHT FOREARM 22g; PATENT, INTACT AND SALINE LOCKED. NO INFILTRATION NOTED. WITH G-TUBE IN PLACE; FEEDING OFF. WITH RIGHT SOFT WRIST RESTRAINT MITTEN ON; SKIN COLOR AND CIRCULATION CHECKED; WNL. SAFETY MEASURES IMPLEMENTED: HOB ELEVATED, CALL LIGHT AND TABLE WITHIN REACH, SIDE RAILS UP X3, BED IN LOWEST LOCKED POSITION. WILL CONTINUE TO MONITOR.
--- NOTE | 2022-09-11 19:36 | NUR ---
RN CLOSING NOTE PATIENT IN BED, NON VERBAL, ABLE TO RESPONDS ALL STIMULI. IN NO ACUTE DISTRESS NOTED. RESPIRATORY EVEN AND UNLABORED, ON VENTILATOR. SOFT WRIST RESTRAIN ON HER RIGHT WRIST FOR SAFETY. SKIN IS WARM TO TOUCH, KEEP CLEAN/DRY. TUBE FEEDING RUNNING AT 75ML/HR X 16 HOURS/DAY, NO RESIDUAL OBSERVED FROM G-TUBE. DUE MEDS GIVEN, KAYEXELATE GIVEN FOR HYPERKALEMIA ORDERED. ENDORSED TO INCOMING NOD TO FOLLOW UP METABOLIC LABS. KEPT ELEVATED HOB FOR ENSURE AIRWAY AND ASPIRATION PRECAUTION, ALSO LOWEST POSITION OF THE BED, S/R UP X 2, BED ALARM IS ON AT ALL THE TIMES. ALL SAFETY PRECAUTION APPLIED. ENDORSED.
[2022-09-11 20:00] VITALS: BP 164/64
[2022-09-11] MEDS: OLANZAPINE 2.5 MG TABLET GT SCH (22:43)
[2022-09-11] MEDS: INSULIN GLARGINE, 100 UNIT/ML CARTRIDGE SQ SCH (22:58)
[2022-09-12] VITALS: BP 159/70
[2022-09-12] MEDS: BLOOD SUGAR DIAGNOSTIC 1 EACH STRIP IN SCH ×5 (00:18→23:41)
[2022-09-12] MEDS: ALBUTEROL FS 2.5 MG/3 ML VIAL.NEB IH SCH ×4 (01:57→20:53)
[2022-09-12 04:00] VITALS: BP 160/81
--- NOTE | 2022-09-12 06:55 | NUR ---
MARBLE POLISHER CLOSING NOTES PATIENT IN BED; AWAKE AND NON-VERBAL. RESPIRATION EQUAL AND UNLABORED. WITH [facility]; TOLERATING CURRENT SETTINGS WELL. IN NO ACUTE DISTRESS. NO S/S OF PAIN OR DISCOMFORT NOTED AT THIS TIME. ON TELE MONITOR READING SINUS RHYTHM AT 99 BPM WITH 1ST DEGREE AV BLOCK. WITH IV ACCESS ON RIGHT FOREARM 22g; PATENT, INTACT AND SALINE LOCKED. NO INFILTRATION NOTED. WITH G-TUBE IN PLACE; FEEDING HELD. WITH RIGHT SOFT WRIST RESTRAINT MITTEN ON; SKIN COLOR AND CIRCULATION CHECKED; WNL. SAFETY MEASURES MAINTAINED: HOB ELEVATED, CALL LIGHT AND TABLE WITHIN REACH, SIDE RAILS UP X3, BED IN LOWEST LOCKED POSITION. ENDORSED TO MORNING SHIFT FOR SALVATORE.
--- NOTE | 2022-09-12 07:20 | NUR ---
RN OPENING NOTES PATIENT RESTING IN BED AND NON-VERBAL. REMAINS ON TR[facility]; TOLERATING CURRENT SETTINGS WELL. BREATHING EVEN AND UNLABORED, NO ACUTE DISTRESS. NO S/S OF PAIN OR DISCOMFORT NOTED AT THIS TIME. ON TELE MONITOR READING SINUS RHYTHM AT 98 BPM WITH 1ST DEGREE AV BLOCK. WITH IV ACCESS ON RIGHT FOREARM 22g, OUT. WILL TRY TO REINSERT PERIPHERAL LINE. WITH G-TUBE IN PLACE; FEEDING HELD FOR SCHEDULED SURGERY THIS AFTERNOON. WITH RIGHT SOFT WRIST RESTRAINT MITTEN ON; SKIN COLOR AND CIRCULATION CHECKED, WNL. SAFETY MEASURES MAINTAINED: HOB ELEVATED, CALL LIGHT AND TABLE WITHIN REACH, SIDE RAILS UP X3, BED IN LOWEST LOCKED POSITION. WILL CONTINUE TO MONITOR PATIENT.
[2022-09-12 08:00] VITALS: BP 150/62
[2022-09-12] MEDS: ASPIRIN 81 MG TAB.CHEW GT SCH (08:30)
[2022-09-12] MEDS: CARVEDILOL 3.125 MG TABLET GT SCH ×2 (08:30→21:20)
[2022-09-12] MEDS: CHLORHEXIDINE GLUCONATE 15 ML UDC MM SCH ×2 (08:30→21:18)
[2022-09-12] MEDS: LEVOTHYROXINE SODIUM 88 MCG TABLET GT SCH (08:30)
[2022-09-12] MEDS: PANTOPRAZOLE 40 MG/PACK PACK GT SCH (08:30)
[2022-09-12] MEDS: DOCUSATE SODIUM 100 MG CAPSULE PO SCH (08:30)
[2022-09-12] MEDS: PROSOURCE / PROSTAT (PYXIS) 30 ML UDC GT SCH (08:31)
[2022-09-12] MEDS: THERAHONEY GEL 1.5 OZ TUBE TP SCH (08:32)
[2022-09-12] MEDS ORDERED: ANESTHESIA TRAY IN PYXIS 1 EA TRAY MC ONE (09:05)
[2022-09-12] MEDS ORDERED: LIDOCAINE 1% INJ 50 ML MDV IJ ONE (09:16)
[2022-09-12] MEDS ORDERED: IOHEXOL 0 ML IV ONE (09:16)
[2022-09-12] MEDS ORDERED: HEPARIN SODIUM, PORCINE 1,000 UNIT/ML VIAL ONE (09:16)
[2022-09-12] MEDS: INSULIN REGULAR, HUMAN 100 UNIT/ML 3 ML VIAL SQ PRN ×3 (11:32→23:18)
[2022-09-12 12:00] VITALS: BP 120/55
[2022-09-12 12:02] LABS: CALCIUM, SERUM 12.1 mg/dL (8.5-10.1); CARBON DIOXIDE 21 mmol/L (21-32); CHLORIDE 94 mmol/L (98-107); GLUCOSE 160 mg/dL (74-106); POTASSIUM 5.9 mmol/L (3.5-5.1); SODIUM SERUM 139 mmol/L (136-145)
[2022-09-12 12:27] LABS: UREA NITROGEN, BLOOD 203 mg/dL (7-18)
[2022-09-12 12:28] LABS: CREATININE 10.4 mg/dL (0.6-1.3)
--- NOTE | 2022-09-12 15:36 | NUR ---
RN NOTE PATIENT BACK FROM SURGERY. S/P LEFT IJ TUNNELED CATHETER PLACEMENT, WITH DRESSING C/D/I. PER DR. MENA. LINE IS OK TO USE. HEMODIALYSIS STARTED.
[2022-09-12 17:00] VITALS: BP 136/72
--- NOTE | 2022-09-12 18:57 | NUR ---
RN CLOSING NOTES PATIENT RESTING IN BED AND NON-VERBAL. REMAINS ON TRACH ATT[facility]ED TO [facility]; TOLERATING CURRENT SETTINGS WELL. BREATHING EVEN AND UNLABORED, NO ACUTE DISTRESS. NO S/S OF PAIN OR DISCOMFORT NOTED AT THIS TIME. ON TELE MONITOR READING SINUS RHYTHM AT 90 BPM WITH PVC'S. IV ACCESS ON RIGHT FOREARM 22G, WITH G-TUBE IN PLACE; FEEDING OF NEPRO @75ML/HR RESTARTED. LEFT CHESTWALL TUNNELED CATHETER IN PLACE WITH DRESSING C/D/I. HAD HD DONE TODAY. WITH RIGHT SOFT WRIST RESTRAINT MITTEN ON; SKIN COLOR AND CIRCULATION CHECKED, WNL. SAFETY MEASURES MAINTAINED: HOB ELEVATED, CALL LIGHT AND TABLE WITHIN REACH, SIDE RAILS UP X3, BED IN LOWEST LOCKED POSITION. WILL ENDORSE TO NEXT SHIFT FOR SALVATORE.
--- NOTE | 2022-09-12 19:32 | NUR ---
RN OPENING NOTES; RECEIVED PATIENT RESTING IN BED AND NON-VERBAL.ON VENT ASSEST FAY WELL NO SIGN SOB/DISTRESS NOTED,BREATHING EVEN AND UNLABORED, ON TELE MONITOR READING SINUS RHYTHM AT 88 BPM WITH PVC'S. IV ACCESS ON R FOOT 22G SL PATENT AND INTACT,GT FEEDING OF NEPRO @75ML/HR FAY WELL,NO RESIDUAL NOTED,HOB ELEVATED AT ALL TIMES, LEFT CHESTWALL TUNNELED CATHETER IN PLACE WITH DRESSING C/D/I. . WITH RIGHT SOFT WRIST RESTRAINT MITTEN ON; SKIN COLOR AND CIRCULATION CHECKED, WNL. SAFETY MEASURES MAINTAINED: CALL LIGHT AND TABLE WITHIN REACH, SIDE RAILS UP X3, BED IN LOWEST LOCKED POSITION. WILL CONTINUE TO MONITOR.
[2022-09-12] MEDS: OLANZAPINE 2.5 MG TABLET GT SCH (21:18)
[2022-09-12] MEDS: INSULIN GLARGINE, 100 UNIT/ML CARTRIDGE SQ SCH (22:35)
[2022-09-12] MEDS: ACETAMINOPHEN 325 MG TABLET PO PRN (23:30)
[2022-09-13] MEDS: ALBUTEROL FS 2.5 MG/3 ML VIAL.NEB IH SCH ×4 (02:11→19:59)
[2022-09-13] MEDS: INSULIN REGULAR, HUMAN 100 UNIT/ML 3 ML VIAL SQ PRN ×2 (05:57→17:30)
[2022-09-13] MEDS: BLOOD SUGAR DIAGNOSTIC 1 EACH STRIP IN SCH ×3 (06:05→17:13)
--- NOTE | 2022-09-13 06:19 | NUR ---
RN CLOSING NOTES; PATIENT IN BED WITH EYES CLOSED,BUT EASY TO AROUSED, AND NON-VERBAL.ON VENT ASSEST FAY WELL NO SIGN SOB/DISTRESS NOTED,BREATHING EVEN AND UNLABORED, IV ACCESS ON R FOOT 22G SL PATENT AND INTACT,GT FEEDING OF NEPRO @75ML/HR FAY WELL,NO RESIDUAL NOTED,HOB ELEVATED AT ALL TIMES, LEFT CHESTWALL TUNNELED CATHETER IN PLACE WITH DRESSING C/D/I. . WITH RIGHT SOFT WRIST RESTRAINT MITTEN ON; SKIN COLOR AND CIRCULATION CHECKED, WNL. SAFETY MEASURES MAINTAINED: CALL LIGHT AND TABLE WITHIN REACH, SIDE RAILS UP X3, BED IN LOWEST LOCKED POSITION. WILL ENDORSED TO NEXT SHIFT.
[2022-09-13 07:00] VITALS: BP 136/72
--- NOTE | 2022-09-13 07:20 | NUR ---
TOWER FOREMAN OPENING NOTES RECEIVED PATIENT RESTING IN BED AND NON-VERBAL, OPENS EYES TO LIGHT PAIN. REMAINS ON TRACH ATTACHED TO [facility] VENT WITH SETTINGS ORDERED; TOLERATING CURRENT SETTINGS WELL. BREATHING EVEN AND UNLABORED, NO ACUTE DISTRESS. NO S/S OF PAIN OR DISCOMFORT NOTED AT THIS TIME. ON TELE MONITOR READING SINUS RHYTHM AT 90'S BPM WITH 1ST DEGREE AV BLOCK. WITH IV ACCESS ON LEFT HAND AND RIGHT FOOT BOTH 22g, ON SALINE LOCK, PATENT AND INTACT. WITH G-TUBE IN PLACE, WITH NEPHRO AT 75ML/HR. WITH RIGHT SOFT WRIST RESTRAINT MITTEN ON; SKIN COLOR AND CIRCULATION CHECKED, WNL. SAFETY MEASURES MAINTAINED: HOB ELEVATED, CALL LIGHT AND TABLE WITHIN REACH, SIDE RAILS UP X3, BED IN LOWEST LOCKED POSITION. WILL CONTINUE TO MONITOR PATIENT.
[2022-09-13] MEDS: DOCUSATE SODIUM 100 MG CAPSULE PO SCH (08:40)
[2022-09-13] MEDS: CHLORHEXIDINE GLUCONATE 15 ML UDC MM SCH ×2 (08:40→21:24)
[2022-09-13] MEDS: ASPIRIN 81 MG TAB.CHEW GT SCH (08:40)
[2022-09-13] MEDS: PANTOPRAZOLE 40 MG/PACK PACK GT SCH (08:40)
[2022-09-13] MEDS: CARVEDILOL 3.125 MG TABLET GT SCH ×2 (08:42→21:25)
[2022-09-13] MEDS: LEVOTHYROXINE SODIUM 88 MCG TABLET GT SCH (08:44)
[2022-09-13] MEDS: PROSOURCE / PROSTAT (PYXIS) 30 ML UDC GT SCH (08:44)
[2022-09-13] MEDS: NEPRO 1,000 ML BOTTLE GT PRN (09:08)
--- NOTE | 2022-09-13 09:08 | NUR ---
LENDING ACTIVITIES SUPERVISOR NOTE SEEN BY DR. HERNANDEZ
[2022-09-13] MEDS: THERAHONEY GEL 1.5 OZ TUBE TP SCH (09:13)
[2022-09-13 09:47] LABS: CALCIUM, SERUM 10.3 mg/dL (8.5-10.1); CARBON DIOXIDE 24 mmol/L (21-32); CHLORIDE 93 mmol/L (98-107); GLUCOSE 211 mg/dL (74-106); POTASSIUM 4.8 mmol/L (3.5-5.1); SODIUM SERUM 137 mmol/L (136-145)
--- NOTE | 2022-09-13 09:50 | NUR ---
CLAY PRESS OPERATOR NOTE SEEN BY DR. PORTILLO
[2022-09-13 09:52] LABS: CREATININE 7.7 mg/dL (0.6-1.3); UREA NITROGEN, BLOOD 140 mg/dL (7-18)
--- NOTE | 2022-09-13 11:10 | NUR ---
UTILITY BAG ASSEMBLER NOTE SEEN BY ASHLEIGH, PROGRAM ASSOCIATE.
[2022-09-13 12:00] VITALS: BP 151/61
[2022-09-13] MEDS: CADEXOMER IODINE 40 GM TUBE TP SCH (13:40)
[2022-09-13 15:13] LABS: BASOPHILS # (AUTO) 0.1 K/uL (0.0-0.2); BASOPHILS % (AUTO) 0.7 % (0.0-2.0); HEMATOCRIT 29 % (33-45); HEMOGLOBIN 9.1 g/dL (11.5-14.8); LYMPHOCYTES # (AUTO) 2.5 K/uL (0.8-4.8); LYMPHOCYTES % (AUTO) 16.6 % (20.0-44.0); MEAN CORPUSCULAR HGB CONC 32 g/dl (31.0-36.0); MEAN CORPUSCULAR VOLUME 96 fL (82-100); MONOCYTES # (AUTO) 1.5 K/uL (0.1-1.30); NEUTROPHILS # (AUTO) 9.8 K/uL (1.8-8.9); NEUTROPHILS % (AUTO) 64.7 % (43.0-81.0); PLATELET COUNT (AUTO) 395 K/uL (150-450); RED BLOOD CELL COUNT(AUTO) 2.98 MIL/uL (4.0-5.2); WHITE BLOOD COUNT (AUTO) 15.2 K/uL (4.3-11.0)
[2022-09-13 16:00] VITALS: BP 138/72
--- NOTE | 2022-09-13 18:57 | NUR ---
CHEMICAL APPLICATOR CLOSING NOTES: PATIENT IN BED WITH EYES CLOSED, EASY TO BE AROUSED BY TOUCH. NON-VERBAL. ON VENT ASSEST FAY WELL NO S/S OF RESPIRATORY DISTRESS. IV ACCESS ON R FOOT 22G SL PATENT AND INTACT; GT FEEDING NEPRO @75ML/HR TOLERATED WELL,NO RESIDUAL. HOB ELEVATED > 45 DEGREE AT ALL TIME. LEFT CHESTWALL TUNNELED CATHETER AND DRESSING ARE C/D/I. RIGHT WRIST SOFT RESTRAIN; NO S/S OF SKIN OR CIRCULATION PROBLEM. SKIN COLOR AND CIRCULATION CHECKED PER HOSPITAL PROTOCOL ROUTINELY. SAFETY MEASURES MAINTAINED: CALL LIGHT AND TABLE WITHIN REACH, SIDE RAILS UP X3, BED IN LOWEST LOCKED POSITION. WILL ENDORSE TO NEXT SHIFT NURSE FOR CONTINUING CARE
[2022-09-13 20:00] VITALS: BP 132/69
--- NOTE | 2022-09-13 20:00 | NUR ---
TOBACCO BALER OPENING NOTES: PATIENT IN BED WITH EYES CLOSED, EASILY AROUSABLE WITH TOUCH. NON-VERBAL. SINUS TACHYCARDIA AT 123 BPM WITH PRIMARY AV BLOCK. ALL OTHER VITAL SIGNS STABLE. ON VENTILATOR AND TOLERATING WITHOUT ANY S/S OF RESPIRATORY DISTRESS. IV ACCESS TO R FOOT 22G SL, PATENT AND INTACT. GT FEEDING NEPRO @75ML/HR RUNNING WITHOUT ANY ISSUE. NO RESIDUAL. HOB ELEVATED > 45 DEGREE AT ALL TIME. LEFT CHEST WALL TUNNELED CATHETER AND DRESSING ARE C/D/I. RIGHT WRIST SOFT RESTRAINT; NO S/S OF SKIN OR CIRCULATION PROBLEM. SKIN COLOR AND CIRCULATION CHECKED PER HOSPITAL PROTOCOL ROUTINELY. SAFETY MEASURES MAINTAINED: CALL LIGHT AND TABLE WITHIN REACH, SIDE RAILS UP X3, BED IN LOWEST LOCKED POSITION. WILL CONTINUE TO MONITOR AND PROVIDE CARE.
[2022-09-13] MEDS: OLANZAPINE 2.5 MG TABLET GT SCH (21:24)
[2022-09-13] MEDS: ALBUMIN 25% 25 GM in PREMIX 1 EA IV PRN (21:48)
[2022-09-13] MEDS: INSULIN GLARGINE, 100 UNIT/ML CARTRIDGE SQ SCH (22:03)
--- NOTE | 2022-09-13 22:57 | NUR ---
DIALYSIS NOTE: HD OUTPUT = 700 ML. AT 2144, CORN LAB TECHNICIAN SHARYN GAVE ALBUMIN 25% TO BRING UP BLOOD PRESSURE= 91/43. HE ALSO ADVISED THAT RN HOLD THE COREG SO HER B/P DOESN'T DROP AGAIN. AT 2245, B/P=117/63 AND P=113.
[2022-09-14] VITALS (7 sets, daily range): BP systolic 102–137; BP diastolic 46–70
[2022-09-14] MEDS: BLOOD SUGAR DIAGNOSTIC 1 EACH STRIP IN SCH ×5 (00:31→23:41)
[2022-09-14] MEDS: INSULIN REGULAR, HUMAN 100 UNIT/ML 3 ML VIAL SQ PRN ×5 (00:34→23:38)
[2022-09-14] MEDS: ALBUTEROL FS 2.5 MG/3 ML VIAL.NEB IH SCH ×4 (01:40→20:31)
[2022-09-14] MEDS: NEPRO 1,000 ML BOTTLE GT PRN (06:14)
[2022-09-14 08:05] LABS: CALCIUM, SERUM 10.3 mg/dL (8.5-10.1); CARBON DIOXIDE 26 mmol/L (21-32); CHLORIDE 93 mmol/L (98-107); CREATININE 6.2 mg/dL (0.6-1.3); GLUCOSE 156 mg/dL (74-106); POTASSIUM 4.3 mmol/L (3.5-5.1); SODIUM SERUM 136 mmol/L (136-145)
[2022-09-14 08:10] LABS: UREA NITROGEN, BLOOD 100 mg/dL (7-18)
--- NOTE | 2022-09-14 08:18 | NUR ---
DEVELOPER RELATIONS MANAGER CLOSING NOTES: PATIENT IN BED WITH EYES CLOSED, NON-VERBAL. SINUS TACHYCARDIA AT 117 BPM. ALL OTHER VITAL SIGNS STABLE. ON VENTILATOR AND TOLERATING WITHOUT ANY S/S OF RESPIRATORY DISTRESS. IV ACCESS TO R FOOT 22G SL, PATENT AND INTACT. G-TUBE FEEDING NEPRO @75ML/HR RUNNING WITHOUT ANY ISSUE. NO RESIDUAL. HOB ELEVATED > 45 DEGREE AT ALL TIMES. LEFT CHEST WALL TUNNELED CATHETER AND DRESSING ARE C/D/I. RIGHT WRIST SOFT RESTRAINT; NO S/S OF SKIN OR CIRCULATION PROBLEM. SKIN COLOR AND CIRCULATION CHECKED PER HOSPITAL PROTOCOL ROUTINELY. SAFETY MEASURES MAINTAINED: CALL LIGHT AND TABLE WITHIN REACH, SIDE RAILS UP X3, BED IN LOWEST LOCKED POSITION. WILL CONTINUE TO MONITOR AND PROVIDE CARE.
[2022-09-14] MEDS: CADEXOMER IODINE 40 GM TUBE TP SCH (09:00)
[2022-09-14] MEDS: PANTOPRAZOLE 40 MG/PACK PACK GT SCH (09:12)
[2022-09-14] MEDS: LEVOTHYROXINE SODIUM 88 MCG TABLET GT SCH (09:12)
[2022-09-14] MEDS: PROSOURCE / PROSTAT (PYXIS) 30 ML UDC GT SCH (09:13)
[2022-09-14] MEDS: CHLORHEXIDINE GLUCONATE 15 ML UDC MM SCH ×2 (09:13→21:01)
[2022-09-14] MEDS: ASPIRIN 81 MG TAB.CHEW GT SCH (09:15)
[2022-09-14] MEDS: CARVEDILOL 3.125 MG TABLET GT SCH ×2 (09:34→21:01)
[2022-09-14] MEDS: DOCUSATE SODIUM 100 MG CAPSULE PO SCH (09:36)
[2022-09-14] MEDS: ACETAMINOPHEN 325 MG TABLET PO PRN (10:52)
--- NOTE | 2022-09-14 19:43 | NUR ---
RN NOTES RECEIVED PATIENT IN BED, VENTILATOR DEPENDENT, OBTUNDED, OPENS EYES, NON-VERBAL. NO RESPIRATORY DISTRESS, SPO2 100%, HR ELEVATED. HOB 45 DEGREES, NEPRO AT 75 ML/HR, NO RESIDUAL, FLUSHED. RIGHT HAND MITTEN RESTRAINT, TO RENEW IN AM. ASPIRATION PRECAUTION, WILL CONTINUE TO MONITOR.
--- NOTE | 2022-09-14 20:22 | NUR ---
MEDICAL STAFF ASSISTANT CLOSING NOTES: PATIENT IN BED WITH EYES CLOSED, NON-VERBAL. SINUS RHYTHM WITH 1ST DEGREE HEART BLOCK WITH HR OF 93BPM. ALL OTHER VITAL SIGNS STABLE. ON VENTILATOR AND TOLERATING WITHOUT ANY S/S OF RESPIRATORY DISTRESS. IV ACCESS TO R FOOT 22G SL, PATENT AND INTACT. G-TUBE FEEDING NEPRO @75ML/HR RUNNING. NO RESIDUAL NOTED. HOB ELEVATED > 45 DEGREE AT ALL TIMES. RIGHT WRIST SOFT RESTRAINT; NO S/S OF SKIN OR CIRCULATION PROBLEM. SKIN COLOR AND CIRCULATION CHECKED PER HOSPITAL PROTOCOL ROUTINELY. ALL SAFETY MEASURES IN PLACE, CALL LIGHT WITHIN REACH, SIDE RAILS UP X3, BED IN LOWEST LOCKED POSITION. WILL ENDORSE CONTINUITY OF CARE TO MANAGEMENT DEPARTMENT CHAIR.
[2022-09-14] MEDS: OLANZAPINE 2.5 MG TABLET GT SCH (21:01)
[2022-09-14] MEDS: INSULIN GLARGINE, 100 UNIT/ML CARTRIDGE SQ SCH (21:16)
[2022-09-14] MEDS: ALBUMIN 25% 25 GM in PREMIX 1 EA IV PRN (22:37)
[2022-09-15] VITALS (10 sets, daily range): BP systolic 101–134; BP diastolic 34–97
[2022-09-15] MEDS: ALBUTEROL FS 2.5 MG/3 ML VIAL.NEB IH SCH ×4 (02:24→19:33)
[2022-09-15] MEDS: ACETAMINOPHEN 325 MG TABLET PO PRN ×2 (03:42→20:25)
[2022-09-15] MEDS: INSULIN REGULAR, HUMAN 100 UNIT/ML 3 ML VIAL SQ PRN ×4 (05:27→23:42)
[2022-09-15] MEDS: BLOOD SUGAR DIAGNOSTIC 1 EACH STRIP IN SCH ×4 (05:28→23:43)
--- NOTE | 2022-09-15 06:01 | NUR ---
DX SEPSIS WO SHOCK, POSSIBLE VAP, OPENS EYES, NON VERBAL, VENTILATOR DEPENDENT, SPO2 99-100%, ELEVATED HR, FEBRILE, SINUS TACH HR 110, NEPRO AT 75 ML/HR, X16 HRS, ON AT 0700, OFF AT 2300, TOLERATING WELL, NO RESIDUAL. ESRD ON HD, ANURIC, LAST HD 09/14/22 WITH 1L OUTPUT, RECEIVED ALBUMIN DURING HD, VS STABLE AFTER HD. NO AM LABS, HD PER NEPHRO, ACCUCHECK, SLIDING SCALE, MONITOR TEMPERATURE, BLOOD CULTURE PENDING. FEVER, GIVEN TYLENOL, COOLING MEASURES.
[2022-09-15] MEDS: LEVOTHYROXINE SODIUM 88 MCG TABLET GT SCH (06:42)
[2022-09-15] MEDS: NEPRO 1,000 ML BOTTLE GT PRN (06:49)
--- NOTE | 2022-09-15 07:30 | NUR ---
COMPUTER FORENSIC SPECIALIST AM NOTES RECEIVED PATIENT IN BED, OBTUNDED, OPENS EYES, NON VERBAL, WITH SH #6 TRACH TO MECHANICAL VENT WITH SETTINGS ORDERED, AC 18 TV 550 FIO2 30% PEEP 5, WELL TOLERATED, SPO2 100%, BREATHING EVEN AND UNLABORED, ST HR 102 ON MONITOR, NO SIGNS OF ANY DISCOMFORT AT THIS TIME, LCW HD CATH CDI DRESSING, RT FOOT G22 FLUSHES WELL, SITE CLEAR. GT CHECKED FOR PLACEMENT, O RESIDUAL, NEPRO AT 75 ML/HR, RIGHT HAND MITTEN IN PLACE, RELEASED AND CHECKED FOR CIRCULATION THEN EVERY 2 HOURS. NURSING FLOWSHEET FOR SKIN ISSUES, HOB UP 45 DEG AT ALL TIMES, ASPIRATION PRECAUTION, SAFETY MEASURES IN PLACE. CALL LIGHT WITHIN REACH. WILL CONT TO MONITOR.
[2022-09-15] MEDS: CARVEDILOL 3.125 MG TABLET GT SCH ×2 (08:50→20:26)
[2022-09-15] MEDS: PANTOPRAZOLE 40 MG/PACK PACK GT SCH (08:50)
[2022-09-15] MEDS: DOCUSATE SODIUM 100 MG CAPSULE PO SCH (08:50)
[2022-09-15] MEDS: PROSOURCE / PROSTAT (PYXIS) 30 ML UDC GT SCH (08:51)
[2022-09-15] MEDS: ASPIRIN 81 MG TAB.CHEW GT SCH (08:51)
[2022-09-15] MEDS: CHLORHEXIDINE GLUCONATE 15 ML UDC MM SCH ×2 (08:51→20:26)
[2022-09-15] MEDS: CADEXOMER IODINE 40 GM TUBE TP SCH (08:51)
--- NOTE | 2022-09-15 09:30 | NUR ---
RN NOTES DUE MEDS GIVEN
[2022-09-15] MEDS: ALBUMIN 25% 25 GM in PREMIX 1 EA IV PRN (10:58)
[2022-09-15] MEDS: MIDODRINE HCL (5MG) 5 MG TABLET GT PRN (11:08)
--- NOTE | 2022-09-15 13:50 | NUR ---
RN NOTES RESPIRATORY SPECIMEN FOR CULTURE AND GRAM STAIN COLLECTED BY JOI Araya MRSA SPECIMEN COLLECTED AND SENT TO LAB
[2022-09-15] MEDS ORDERED: IV NS 0.9% 250 ML IV PRN (14:00)
[2022-09-15] MEDS: MEROPENEM 500 MG in IV NS 0.9% 50 ML IV SCH (14:18)
[2022-09-15 14:57] LABS: ALBUMIN 3.7 g/dL (3.4-5.0); BILIRUBIN,DIRECT 0.1 mg/dL (0.0-0.2); BILIRUBIN,TOTAL 0.4 mg/dL (0.2-1.0); TOTAL PROTEIN, SERUM 9.7 g/dL (6.4-8.2)
--- NOTE | 2022-09-15 15:24 | NUR ---
RN NOTES DR. ALEJO NOTIFIED. PROCALCITONIN 5.5. NO NEW ORDERS.
[2022-09-15] MEDS ORDERED: VANCOMYCIN 1 GM in IV D5W 250 ML IV ONE (17:00)
--- NOTE | 2022-09-15 18:49 | NUR ---
ENTRY ANALYST CLOSING NOTES PATIENT IN BED, OBTUNDED, OPENS EYES, NON VERBAL, WITH SH #6 TRACH TO MECHANICAL VENT WITH SETTINGS ORDERED, AC 18 TV 550 FIO2 30% PEEP 5, WELL TOLERATED, SPO2 100%, BREATHING EVEN AND UNLABORED, ST HR 100s ON MONITOR, NO SIGNS OF ANY DISCOMFORT AT THIS TIME, LCW HD CATH CDI DRESSING, RT FOOT G22 FLUSHES WELL, SITE CLEAR. GT CHECKED FOR PLACEMENT, O RESIDUAL, NEPRO AT 75 ML/HR, RIGHT HAND MITTEN IN PLACE, RELEASED AND CHECKED FOR CIRCULATION THEN EVERY 2 HOURS. HOB UP 45 DEG AT ALL TIMES, ASPIRATION PRECAUTION, SAFETY MEASURES IN PLACE. CALL LIGHT WITHIN REACH. ALL NEEDS MET. PM CARE AND PRESCRIBED WOUND TREATMENT DONE. TURNED AND REPOSITIONED Q [address] ME[address] PL[address]. WILL ENDORSE TO NEXT SHIFT FOR SALVATORE. HEMODIALYSIS DONE TODAY WITH 1.5L OUTPUT. Addendum: 09/15/22 at 1854 by MINA AMADO RN CORRECTION HD COMPETED TODAY WITH 1.1 L OUTPUT
--- NOTE | 2022-09-15 20:02 | NUR ---
RECEIVED PATIENT IN BED, ALERT AND AWAKE, NON-VERBAL, VENTILATOR DEPENDENT, NO DISTRESS, SPO2 100%, SKIN WARM TO TOUCH, BEING MONITORED FOR FEVER. ELEVATED HR, COREG AT 2100, ANURIC, S/P HD, LCW HD CATH SECURED WITH DRESSING. PEG TUBE FEEDING, TOLERATING WELL, REPOSITIONED, BLE CONTRACTURES, KEPT HOB ELEVATED, ASPIRATION PRECAUTION, RIGHT HAND WITH SOFT RESTRAINTS, FOLLOWING MONITORING PROTOCOL, KEPT SAFE, WILL CONTINUE TO MONITOR.
[2022-09-15] MEDS: OLANZAPINE 2.5 MG TABLET GT SCH (21:09)
[2022-09-15] MEDS: INSULIN GLARGINE, 100 UNIT/ML CARTRIDGE SQ SCH (21:10)
[2022-09-16] VITALS: BP 130/50
[2022-09-16] MEDS: ALBUTEROL FS 2.5 MG/3 ML VIAL.NEB IH SCH ×4 (01:22→19:42)
[2022-09-16] MEDS: MEROPENEM 500 MG in IV NS 0.9% 50 ML IV SCH ×2 (01:27→14:00)
[2022-09-16 04:00] VITALS: BP 118/51
[2022-09-16] MEDS: ACETAMINOPHEN 325 MG TABLET PO PRN (05:32)
[2022-09-16] MEDS: BLOOD SUGAR DIAGNOSTIC 1 EACH STRIP IN SCH ×4 (06:03→23:54)
[2022-09-16] MEDS: INSULIN REGULAR, HUMAN 100 UNIT/ML 3 ML VIAL SQ PRN ×3 (06:04→23:53)
[2022-09-16 06:22] LABS: BASOPHILS # (AUTO) 0.1 K/uL (0.0-0.2); BASOPHILS % (AUTO) 0.7 % (0.0-2.0); EOSINOPHILS % (AUTO) 1.9 % (0.0-6.0); HEMATOCRIT 25 % (33-45); HEMOGLOBIN 7.6 g/dL (11.5-14.8); LYMPHOCYTES # (AUTO) 2.3 K/uL (0.8-4.8); LYMPHOCYTES % (AUTO) 12.2 % (20.0-44.0); MEAN CORPUSCULAR HGB CONC 31 g/dl (31.0-36.0); MEAN CORPUSCULAR VOLUME 98 fL (82-100); MONOCYTES # (AUTO) 1.4 K/uL (0.1-1.30); MONOCYTES % (AUTO) 7.6 % (2.0-12.0); NEUTROPHILS # (AUTO) 14.6 K/uL (1.8-8.9); NEUTROPHILS % (AUTO) 77.6 % (43.0-81.0); PLATELET COUNT (AUTO) 338 K/uL (150-450); RED BLOOD CELL COUNT(AUTO) 2.53 MIL/uL (4.0-5.2); WHITE BLOOD COUNT (AUTO) 18.7 K/uL (4.3-11.0)
--- NOTE | 2022-09-16 06:38 | NUR ---
CONFUSED, OPENS EYES, NON-VERBAL, VENTILATOR DEPENDENT, NO DISTRESS, SPO2 100%, FEVER AT START OF SHIFT, GIVEN TYLENOL, COOLING MEASURES, TEMPERATURE IMPROVED. SUCTIONED PRN, WOUND CARE PERFORMED, ACCUCHECK, SLIDING SCALE, LANTUS 15 UNITS, ASPIRATION PRECAUTION. RIGHT WRIST RESTRAINTS, PATIENT SCRATCHES SELF UNTIL THE SKIN BREAKS DOWN WHEN OUT OF RESTRAINTS. SKIN FRAGILE WITH MULTIPLE SCRATCH HATHAWAY. CONTINUE SUPPORTIVE CARE, HD PER NEPHRO, BLOOD CULTURE PENDING, STARTED ON MERREM.
[2022-09-16] MEDS: NEPRO 1,000 ML BOTTLE GT PRN (06:44)
--- NOTE | 2022-09-16 07:00 | NUR ---
RN OPENING NOTES PATIENT REMAINS IN ROOM A/O TIMES 1. OPENS EYES, NON-VERBAL, VENTILATOR DEPENDENT, NO DISTRESS, SPO2 100%. RIGHT WRIST RESTRAINT NOTED, CIRCULATION IS WITHIN NORMAL LIMITS. IV ACCESS ON RIGHT FOOT 22 GAUGE FLUSHING WITH NO RESISTANCE. GASTRIC TUBE RUNNING NEPRO AT 75 MLS AN HOUR, NO RESIDUAL NOTED. SAFETY MEASURES IMPLEMENTED. WILL CONTINUE PLAN OF CARE AND ANTICIPATE NEEDS.
[2022-09-16 07:07] LABS: ALANINE AMINOTRANSFERASE 13 U/L (12-78); ALBUMIN 3.7 g/dL (3.4-5.0); ALKALINE PHOSPHATASE 148 U/L (46-116); ASPARTATE AMINOTRANSFERASE 27 U/L (15-37); BILIRUBIN,TOTAL 0.5 mg/dL (0.2-1.0); CALCIUM, SERUM 9.9 mg/dL (8.5-10.1); CARBON DIOXIDE 30 mmol/L (21-32); CHLORIDE 97 mmol/L (98-107); CREATININE 3.4 mg/dL (0.6-1.3); GLUCOSE 167 mg/dL (74-106); MAGNESIUM 2.4 mg/dL (1.8-2.4); POTASSIUM 3.8 mmol/L (3.5-5.1); SODIUM SERUM 137 mmol/L (136-145); TOTAL PROTEIN, SERUM 10.4 g/dL (6.4-8.2); UREA NITROGEN, BLOOD 55 mg/dL (7-18)
[2022-09-16] MEDS: LEVOTHYROXINE SODIUM 88 MCG TABLET GT SCH (07:50)
[2022-09-16] MEDS: PROSOURCE / PROSTAT (PYXIS) 30 ML UDC GT SCH (08:12)
[2022-09-16] MEDS: CHLORHEXIDINE GLUCONATE 15 ML UDC MM SCH ×2 (08:12→21:15)
[2022-09-16] MEDS: DOCUSATE SODIUM 100 MG CAPSULE PO SCH (08:12)
[2022-09-16] MEDS: ASPIRIN 81 MG TAB.CHEW GT SCH (08:14)
[2022-09-16] MEDS: PANTOPRAZOLE 40 MG/PACK PACK GT SCH (08:14)
[2022-09-16] MEDS: CADEXOMER IODINE 40 GM TUBE TP SCH (08:14)
[2022-09-16] MEDS: CARVEDILOL 3.125 MG TABLET GT SCH ×2 (08:14→21:15)
[2022-09-16 10:45] LABS: BASOPHILS % (MANUAL) 0 % (0.0-2.0); EOSINOPHILS % (MANUAL) 1 % (0-4); LYMPHOCYTES % (MANUAL) 16 % (16-48); MONOCYTES % (MANUAL) 4 % (0-11.0); NEUTROPHILS % (MANUAL) 79 (42-76)
[2022-09-16] MEDS: ALBUMIN 25% 25 GM in PREMIX 1 EA IV PRN (13:27)
[2022-09-16] MEDS: MIDODRINE HCL (5MG) 5 MG TABLET GT PRN (14:03)
--- NOTE | 2022-09-16 18:37 | NUR ---
RN CLOSING NOTES PATIENT REMAINS IN ROOM A/O TIMES 1. OPENS EYES, NON-VERBAL, VENTILATOR DEPENDENT, NO DISTRESS, SPO2 100%. RIGHT WRIST RESTRAINT NOTED, CIRCULATION IS WITHIN NORMAL LIMITS. IV ACCESS ON RIGHT FOOT 22 GAUGE FLUSHING WITH NO RESISTANCE. GASTRIC TUBE RUNNING NEPRO AT 75 MLS AN HOUR, NO RESIDUAL NOTED. SAFETY MEASURES IMPLEMENTED. WILL ENDORSE TO NIGHTSHIFT RN FOR CONTINUATION OF CARE.
[2022-09-16 20:00] VITALS: BP 121/47
--- NOTE | 2022-09-16 20:01 | NUR ---
RN OPENING NOTES RECEIVED PT IN BED WITH EYES CLOSED BUT EASY TO AROUSED,NONVERBAL,VENTILATOR DEPENDENT FAY WELL SATTING 99%,NO SIGN SOB/DISTRESS NOTED,NO SIGN OF PAIN/DISCOMFORT AT THIS TIME, RIGHT WRIST RESTRAINT NOTED, CIRCULATION IS WITHIN NORMAL LIMITS. IV ACCESS ON RIGHT FOOT 22 GAUGE FLUSHING WITH NO RESISTANCE.GTUBE FEEDING RUNNING NEPRO AT 75ML/HR,FAY WELL, NO RESIDUAL NOTED. SAFETY MEASURES IMPLEMENTED.CALL LIGHT WITHIN REACH, WILL CONTINUE TO MONITOR.
[2022-09-16] MEDS: OLANZAPINE 2.5 MG TABLET GT SCH (21:14)
[2022-09-16] MEDS: INSULIN GLARGINE, 100 UNIT/ML CARTRIDGE SQ SCH (21:36)
[2022-09-17] VITALS: BP 139/41
[2022-09-17] MEDS: ALBUTEROL FS 2.5 MG/3 ML VIAL.NEB IH SCH ×4 (01:56→20:06)
[2022-09-17] MEDS: MEROPENEM 500 MG in IV NS 0.9% 50 ML IV SCH ×2 (02:33→13:52)
[2022-09-17 04:00] VITALS: BP 146/70
[2022-09-17] MEDS: INSULIN REGULAR, HUMAN 100 UNIT/ML 3 ML VIAL SQ PRN ×3 (05:26→17:10)
[2022-09-17] MEDS: BLOOD SUGAR DIAGNOSTIC 1 EACH STRIP IN SCH ×3 (05:33→17:10)
--- NOTE | 2022-09-17 06:27 | NUR ---
RN OPENING NOTES PT IN BED WITH EYES CLOSED BUT EASY TO AROUSED,NONVERBAL,VENTILATOR DEPENDENT FAY WELL SATTING 98%,NO SIGN SOB/DISTRESS NOTED,NO SIGN OF PAIN/DISCOMFORT DURING SHIFT,DUE MEDS GIVEN ORDER,ALL NEEDS ATTENDED,, RIGHT WRIST RESTRAINT NOTED, CIRCULATION CHECKED,. IV ACCESS ON RIGHT FOOT 22 GAUGE FLUSHING WELL,GTUBE FEEDING RUNNING NEPRO AT 75ML/HR,FAY WELL, NO RESIDUAL NOTED. SAFETY MEASURES IMPLEMENTED.CALL LIGHT WITHIN REACH, WILL ENDORSED TO NEXT SHIFT.
[2022-09-17 06:42] LABS: ALANINE AMINOTRANSFERASE 9 U/L (12-78); ALKALINE PHOSPHATASE 172 U/L (46-116); ASPARTATE AMINOTRANSFERASE 29 U/L (15-37); BILIRUBIN,TOTAL 0.4 mg/dL (0.2-1.0); CARBON DIOXIDE 21 mmol/L (21-32); CHLORIDE 98 mmol/L (98-107); GLUCOSE 238 mg/dL (74-106); MAGNESIUM 2.7 mg/dL (1.8-2.4); PHOSPHORUS 2.9 mg/dL (2.5-4.9); POTASSIUM 4.3 mmol/L (3.5-5.1); SODIUM SERUM 133 mmol/L (136-145); TOTAL PROTEIN, SERUM 9.9 g/dL (6.4-8.2); UREA NITROGEN, BLOOD 15 mg/dL (7-18)
[2022-09-17 06:57] LABS: CALCIUM, SERUM 9.7 mg/dL (8.5-10.1); CREATININE 2.9 mg/dL (0.6-1.3)
[2022-09-17 07:00] VITALS: BP 107/55
[2022-09-17 07:12] LABS: BASOPHILS # (AUTO) 0.1 K/uL (0.0-0.2); BASOPHILS % (AUTO) 0.6 % (0.0-2.0); EOSINOPHILS % (AUTO) 3.6 % (0.0-6.0); HEMATOCRIT 27 % (33-45); HEMOGLOBIN 7.9 g/dL (11.5-14.8); LYMPHOCYTES # (AUTO) 1.8 K/uL (0.8-4.8); LYMPHOCYTES % (AUTO) 11.5 % (20.0-44.0); MEAN CORPUSCULAR HGB CONC 29 g/dl (31.0-36.0); MEAN CORPUSCULAR VOLUME 104 fL (82-100); MONOCYTES # (AUTO) 1.1 K/uL (0.1-1.30); NEUTROPHILS # (AUTO) 12.4 K/uL (1.8-8.9); NEUTROPHILS % (AUTO) 77.3 % (43.0-81.0); PLATELET COUNT (AUTO) 312 K/uL (150-450); RED BLOOD CELL COUNT(AUTO) 2.61 MIL/uL (4.0-5.2)
--- NOTE | 2022-09-17 07:25 | NUR ---
RN OPENING NOTES RECEIVED PATIENT RESTING IN BED AND NON-VERBAL. EYES OPEN. REMAINS ON TRACH ATTACHED TO [facility] VENT, WITH CURRENT SETTINGS OF: AC 18, TV 550, FIO2 30%, PEEP 5; TOLERATING CURRENT SETTINGS WELL. BREATHING EVEN AND UNLABORED, NO ACUTE DISTRESS. NO S/S OF PAIN OR DISCOMFORT NOTED AT THIS TIME. ON TELE MONITOR READING SINUS TACH, HR AT 108 BPM WITH 1ST DEGREE AV BLOCK. WITH IV ACCESS ON RIGHT FOOT 22G, INTACT AND PATENT, SL. WITH G-TUBE IN PLACE; FEEDING OF NEPRO @75ML/HR RUNNING, TOLERATING WELL. WITH RIGHT SOFT WRIST RESTRAINT IN PLACE; SKIN COLOR AND CIRCULATION CHECKED, WNL. SAFETY MEASURES IN PLACE, HOB ELEVATED, CALL LIGHT AND TABLE WITHIN REACH, SIDE RAILS UP X3, BED IN LOWEST LOCKED POSITION. WILL CONTINUE TO MONITOR PATIENT.
[2022-09-17] MEDS: LEVOTHYROXINE SODIUM 88 MCG TABLET GT SCH (07:46)
[2022-09-17] MEDS: CHLORHEXIDINE GLUCONATE 15 ML UDC MM SCH ×2 (08:08→21:09)
[2022-09-17] MEDS: DOCUSATE SODIUM 100 MG CAPSULE PO SCH (08:08)
[2022-09-17] MEDS: ASPIRIN 81 MG TAB.CHEW GT SCH (08:08)
[2022-09-17] MEDS: PANTOPRAZOLE 40 MG/PACK PACK GT SCH (08:08)
[2022-09-17] MEDS: PROSOURCE / PROSTAT (PYXIS) 30 ML UDC GT SCH (08:09)
[2022-09-17] MEDS: CARVEDILOL 3.125 MG TABLET GT SCH ×2 (08:09→21:10)
[2022-09-17] MEDS: CADEXOMER IODINE 40 GM TUBE TP SCH (08:29)
[2022-09-17 09:17] LABS: ALBUMIN 3.4 g/dL (3.4-5.0)
[2022-09-17 12:00] VITALS: BP 108/39
[2022-09-17] MEDS: ACETAMINOPHEN 325 MG TABLET PO PRN (14:41)
[2022-09-17 16:00] VITALS: BP 144/62
--- NOTE | 2022-09-17 18:45 | NUR ---
RN CLOSING NOTES PATIENT RESTING IN BED AND NON-VERBAL. EASILY AROUSED BY VERBAL AND TACTILE STIMULI. REMAINS ON TRACH ATTACHED TO [facility] VENT, WITH CURRENT SETTINGS OF: AC 18, TV 550, FIO2 30%, PEEP 5; TOLERATING CURRENT SETTINGS WELL. BREATHING EVEN AND UNLABORED, NO SIGNS OF ACUTE DISTRESS. NO S/S OF PAIN OR DISCOMFORT NOTED AT THIS TIME. CONTINUE ON TELE MONITORING, CURRENTLY SHOWING SINUS TACH, HR AT 100. IV ACCESS ON RIGHT FOOT 22G, INTACT AND PATENT, SL. WITH G-TUBE INTACT AND PATENT, NO RESIDUAL. FEEDING OF NEPRO @75ML/HR RUNNING, TOLERATING WELL. WITH RIGHT SOFT WRIST RESTRAINT IN PLACE; SKIN COLOR AND CIRCULATION CHECKED, WNL. SAFETY MEASURES MAINTAINED, HOB ELEVATED, CALL LIGHT AND TABLE WITHIN REACH, SIDE RAILS UP X3, BED IN LOWEST LOCKED POSITION. WILL ENDORSE TO NEXT SHIFT FOR CONTINUITY OF CARE.
[2022-09-17 20:00] VITALS: BP 125/54
[2022-09-17] MEDS: OLANZAPINE 2.5 MG TABLET GT SCH (21:09)
[2022-09-17] MEDS: INSULIN GLARGINE, 100 UNIT/ML CARTRIDGE SQ SCH (21:33)
[2022-09-18] VITALS: BP 110/47
[2022-09-18] MEDS: INSULIN REGULAR, HUMAN 100 UNIT/ML 3 ML VIAL SQ PRN ×5 (00:50→23:16)
[2022-09-18] MEDS: BLOOD SUGAR DIAGNOSTIC 1 EACH STRIP IN SCH ×5 (00:58→23:14)
[2022-09-18] MEDS: ALBUTEROL FS 2.5 MG/3 ML VIAL.NEB IH SCH ×4 (01:18→20:39)
[2022-09-18] MEDS: MEROPENEM 500 MG in IV NS 0.9% 50 ML IV SCH ×2 (02:07→14:39)
[2022-09-18 04:00] VITALS: BP 127/43
--- NOTE | 2022-09-18 06:21 | NUR ---
RN CLOSING NOTES; PT IN BED WITH EYES CLOSED BUT EASY TO AROUSED,NONVERBAL,VENTILATOR DEPENDENT [place]LL SATTING 98%,NO SIGN SOB/DISTRESS NOTED,NO SIGN OF PAIN/DISCOMFORT DURING SHIFT,DUE MEDS GIVEN ORDER,ALL NEEDS ATTENDED,, RIGHT WRIST RESTRAINT NOTED, CIRCULATION CHECKED,. IV ACCESS ON RIGHT FOOT 22 GAUGE FLUSHING WELL,GTUBE FEEDING RUNNING NEPRO AT 75ML/HR,FAY WELL, NO RESIDUAL NOTED. SAFETY MEASURES IMPLEMENTED.CALL LIGHT WITHIN REACH, WILL ENDORSED TO NEXT SHIFT.
--- NOTE | 2022-09-18 07:26 | NUR ---
DETENTION ATTENDANT OPENING NOTE RECEIVED PT ASLEEP IN BED, PT OPEN EYES TO STIMULI. PT IS NON VERBAL. PT ON MECHANICAL VENT ON PRESCRIBED SETTINGS, TOLERATING WELL. NO SOB NOTED. NOT IN ANY SIGN OF RESPIRATORY DISTRESS. ON TELE ADJUNCT PSYCHOLOGY FACULTY MEMBER WITH CURRENT READING OF SINUS RHYTHM, HR 67. NO C/O CARDIAC DISTRESS NOTED AT THIS TIME. IV ACCESS IN R FOOT G#22, SALINE LOCK, INTACT AND PATENT. GTUBE FEEDING INTACT WITH NEPHRO FEEDING RUNNING AT 75ML/HR. SAFETY MEASURES IN PLACE: BED IN LOWEST AND LOCKED POSITION, SIDE RAILS UP X2, KEPT HOB ELEVATED AND CALL LIGHT WITHIN REACH. WILL CONTINUE TO MONITOR PT.
--- NOTE | 2022-09-18 07:55 | NUR ---
RN NOTE HD STARTED BY DIALYSIS NURSE CHAPARRITA. VITAL SIGNS: BP 121/69, P 100, R 18, TEMP 98.0, SPO2 100%.
[2022-09-18 08:00] VITALS: BP 131/52
[2022-09-18] MEDS: LEVOTHYROXINE SODIUM 88 MCG TABLET GT SCH (08:45)
[2022-09-18] MEDS: CARVEDILOL 3.125 MG TABLET GT SCH ×2 (09:00→21:39)
[2022-09-18] MEDS: PROSOURCE / PROSTAT (PYXIS) 30 ML UDC GT SCH (09:11)
[2022-09-18] MEDS: ASPIRIN 81 MG TAB.CHEW GT SCH (09:11)
[2022-09-18] MEDS: DOCUSATE SODIUM 100 MG CAPSULE PO SCH (09:12)
[2022-09-18] MEDS: PANTOPRAZOLE 40 MG/PACK PACK GT SCH (09:12)
[2022-09-18] MEDS: CHLORHEXIDINE GLUCONATE 15 ML UDC MM SCH ×2 (09:12→21:39)
[2022-09-18] MEDS: CADEXOMER IODINE 40 GM TUBE TP SCH (09:53)
--- NOTE | 2022-09-18 10:55 | NUR ---
RN NOTE HD ENDED AND COMPLETED BY DIALYSIS NURSE CHAPARRITA WITH 1LITER OUTPUT. VITAL SIGNS: BP 94/58, P 100, R 18, TEMP 98.2, SPO2 100%.
--- NOTE | 2022-09-18 11:00 | NUR ---
RN NOTE VANCO SCHEDULED TO BE GIVEN POST DIALYSIS NOT ADMINISTERED AT THIS TIME. AWAITING FOR THE VANCO TROUGH RESULTS. PHARMACIST AWARE.
[2022-09-18 12:00] VITALS: BP 116/56
--- NOTE | 2022-09-18 13:00 | NUR ---
RN NOTE CALLED PHARMACIST AND MADE AWARE OF VANCO TROUGH RESULT OF 13 AND IF THEY CAN SEND THE VANCO IV MEDICATION. PER PHARMACIST WILL SEND TO THE UNIT.
[2022-09-18 13:39] LABS: ALANINE AMINOTRANSFERASE 14 U/L (12-78); ALKALINE PHOSPHATASE 180 U/L (46-116); ASPARTATE AMINOTRANSFERASE 29 U/L (15-37); BILIRUBIN,TOTAL 0.5 mg/dL (0.2-1.0); CALCIUM, SERUM 9.9 mg/dL (8.5-10.1); CARBON DIOXIDE 24 mmol/L (21-32); CHLORIDE 96 mmol/L (98-107); CREATININE 2.9 mg/dL (0.6-1.3); GLUCOSE 290 mg/dL (74-106); MAGNESIUM 2.4 mg/dL (1.8-2.4); PHOSPHORUS 2.8 mg/dL (2.5-4.9); POTASSIUM 4.3 mmol/L (3.5-5.1); SODIUM SERUM 133 mmol/L (136-145); UREA NITROGEN, BLOOD 58 mg/dL (7-18)
[2022-09-18 13:45] LABS: BASOPHILS # (AUTO) 0.1 K/uL (0.0-0.2); BASOPHILS % (AUTO) 0.7 % (0.0-2.0); EOSINOPHILS % (AUTO) 4.8 % (0.0-6.0); HEMATOCRIT 25 % (33-45); HEMOGLOBIN 7.7 g/dL (11.5-14.8); LYMPHOCYTES % (AUTO) 11.3 % (20.0-44.0); MEAN CORPUSCULAR HGB CONC 31 g/dl (31.0-36.0); MEAN CORPUSCULAR VOLUME 97 fL (82-100); MONOCYTES # (AUTO) 1.5 K/uL (0.1-1.30); MONOCYTES % (AUTO) 8.8 % (2.0-12.0); NEUTROPHILS # (AUTO) 13.2 K/uL (1.8-8.9); NEUTROPHILS % (AUTO) 74.4 % (43.0-81.0); PLATELET COUNT (AUTO) 349 K/uL (150-450); RED BLOOD CELL COUNT(AUTO) 2.57 MIL/uL (4.0-5.2); WHITE BLOOD COUNT (AUTO) 17.6 K/uL (4.3-11.0)
[2022-09-18 14:22] LABS: ALBUMIN 4.3 g/dL (3.4-5.0)
--- NOTE | 2022-09-18 15:00 | NUR ---
RN NOTE FOLLOWED WITH THE PHARMACIST IN REGARDS TO PT'S VANCO IV ANTIBIOTICS. PER PHARMACIST THEY WILL SEND.
[2022-09-18 15:42] VITALS: BP 105/55
[2022-09-18] MEDS: VANCOMYCIN 500 MG in IV D5W 100 ML IV PRN (16:33)
--- NOTE | 2022-09-18 16:35 | NUR ---
RN NOTE VANCO IV ANTIBIOTICS RECEIVED FROM THE PHARMACIST AND ADMINISTERED TO THE PT.
--- NOTE | 2022-09-18 19:19 | NUR ---
RN NOTE RECEIVED AN ORDER FROM DR. JANNIE ALEJO THAT MAY USE LEGS FOR IV HEPLOCK. CHRISTOPH CHARGED NURSE AWARE.
--- NOTE | 2022-09-18 19:30 | NUR ---
RN OPENING NOTE PATIENT IN BED, OPENS EYES SPONTANEOUSLY, PATIENT IS NONVERBAL. ON MECHANICAL VENT TOLERATING CURRENT SETTINGS WITH 100% O2 SATURATION. TELE MONITOR READS ST 108 BPM. PATIENT'S G TUBE PATENT AND INTACT, ONGOING NEPRO AT 75 ML/HR, NO RESIDUAL, TOLERATING FEEDING WELL AT THIS TIME. LEFT LEG 22G, FLUSHING WELL, SALINE LOCKED AT THIS TIME. PATIENT STILL HAS R WRIST RESTRAINTS ON D/T PULLING ON TUBES. PATIENT NOT IN ANY APPARENT DISTRESS. NO PAIN VIA FLACC. SAFETY MEASURES IN PLACE: BED LOCKED AND IN LOWEST POSITION, CALL LIGHT WITHIN REACH, SIDE RAILS UP. WILL MONITOR PATIENT CLOSELY.
--- NOTE | 2022-09-18 19:45 | NUR ---
DEMOLITION SPECIALIST CLOSING NOTE PT ASLEEP IN BED, PT OPEN EYES TO STIMULI. PT IS NON VERBAL. PT ON MECHANICAL VENT ON PRESCRIBED SETTINGS, TOLERATING WELL. NO SOB NOTED. NOT IN ANY SIGN OF RESPIRATORY DISTRESS. ON TELE LOAN FUNDER WITH CURRENT READING OF SINUS RHYTHM, HR 70. NO C/O CARDIAC DISTRESS NOTED AT THIS TIME. IV ACCESS IN LEFT LEG G#22, SALINE LOCK, INTACT AND PATENT. GTUBE FEEDING INTACT WITH NEPHRO FEEDING RUNNING AT 75ML/HR. ALL NEEDS ATTENDED. KEPT CLEAN AND COMFORTABLE. TURNED AND REPOSITIONED Q2HRS AND NEEDED. SAFETY MEASURES IN PLACE: BED IN LOWEST AND LOCKED POSITION, SIDE RAILS UP X2, KEPT HOB ELEVATED AND CALL LIGHT WITHIN REACH. ENDORSED TO LOGISTICS VICE PRESIDENT NURSE FOR SALVATORE.
[2022-09-18 21:02] VITALS: BP 144/107
[2022-09-18 21:08] LABS: BAND % (MANUAL) 5 % (0.0-5.0); BASOPHILS % (MANUAL) 0 % (0.0-2.0); EOSINOPHILS % (MANUAL) 3 % (0-4); LYMPHOCYTES % (MANUAL) 12 % (16-48); MONOCYTES % (MANUAL) 6 % (0-11.0); NEUTROPHILS % (MANUAL) 74 (42-76)
--- NOTE | 2022-09-18 21:15 | NUR ---
RN NOTE PATIENT GIVEN 8 UNITS OF REGULAR INSULIN FOR COVERAGE FOR BS OF 335 MG/DL. TF NOW TURNED OFF, TO BE TURNED BACK ON AT 7 AM. WILL MONITOR PATIENT CLOSELY FOR HYPO/HYPERGLYCEMIA.
[2022-09-18] MEDS: OLANZAPINE 2.5 MG TABLET GT SCH (21:38)
[2022-09-18] MEDS: ACETAMINOPHEN 325 MG TABLET PO PRN (21:39)
[2022-09-18] MEDS: INSULIN GLARGINE, 100 UNIT/ML CARTRIDGE SQ SCH (21:42)
--- NOTE | 2022-09-18 21:42 | NUR ---
RN NOTE LANTUS GIVEN ORDERED, BS 287 MG/DL. PATIENT ALSO HAS A TEMP OF 102.5, TYLENOL 650 MG ADMINISTERED AND COOLING MEASURES INITIATED. WILL RECHECK AT A LATER TIME.
[2022-09-19 00:29] VITALS: BP 118/63
[2022-09-19] MEDS: MEROPENEM 500 MG in IV NS 0.9% 50 ML IV SCH ×2 (01:12→14:28)
[2022-09-19] MEDS: ALBUTEROL FS 2.5 MG/3 ML VIAL.NEB IH SCH ×4 (02:14→20:28)
--- NOTE | 2022-09-19 02:29 | NUR ---
RFA 20 G ESTABLISHED. PATENT AND INTACT, FLUSHING WELL.
[2022-09-19 04:14] VITALS: BP 120/45
[2022-09-19] MEDS: BLOOD SUGAR DIAGNOSTIC 1 EACH STRIP IN SCH ×4 (05:45→23:21)
[2022-09-19] MEDS: INSULIN REGULAR, HUMAN 100 UNIT/ML 3 ML VIAL SQ PRN ×4 (05:48→23:24)
--- NOTE | 2022-09-19 07:19 | NUR ---
RN CLOSING NOTE PATIENT IN BED, EYES CLOSED, PATIENT IS NONVERBAL. ON MECHANICAL VENT TOLERATING CURRENT SETTINGS WITH 100% O2 SATURATION. TELE MONITOR READS SR 88 BPM. PATIENT'S G TUBE PATENT AND INTACT, ONGOING NEPRO AT 75 ML/HR, NO RESIDUAL, TOLERATING FEEDING WELL AT THIS TIME, TURNED BACK ON AT 0700. LEFT LEG 22G, FLUSHING WELL, SALINE LOCKED AT THIS TIME, AND A RFA 20G, FLUSHING WELL. PATIENT STILL HAS R WRIST RESTRAINTS ON D/T PULLING ON TUBES. PATIENT NOT IN ANY APPARENT DISTRESS. NO PAIN VIA FLACC. SAFETY MEASURES IN PLACE: BED LOCKED AND IN LOWEST POSITION, CALL LIGHT WITHIN REACH, SIDE RAILS UP. ALL NEEDS MET AND ATTENDED. ALL ORDERS CARRIED OUT. WILL ENDORSE TO DAY SHIFT NURSE FOR SALVATORE.
[2022-09-19 07:26] LABS: BASOPHILS # (AUTO) 0.1 K/uL (0.0-0.2); BASOPHILS % (AUTO) 0.7 % (0.0-2.0); EOSINOPHILS % (AUTO) 7.6 % (0.0-6.0); HEMATOCRIT 24 % (33-45); HEMOGLOBIN 7.6 g/dL (11.5-14.8); LYMPHOCYTES % (AUTO) 14.1 % (20.0-44.0); MEAN CORPUSCULAR HGB CONC 31 g/dl (31.0-36.0); MEAN CORPUSCULAR VOLUME 97 fL (82-100); MONOCYTES # (AUTO) 1.4 K/uL (0.1-1.30); MONOCYTES % (AUTO) 9.9 % (2.0-12.0); NEUTROPHILS # (AUTO) 9.9 K/uL (1.8-8.9); NEUTROPHILS % (AUTO) 67.7 % (43.0-81.0); PLATELET COUNT (AUTO) 370 K/uL (150-450); RED BLOOD CELL COUNT(AUTO) 2.51 MIL/uL (4.0-5.2); WHITE BLOOD COUNT (AUTO) 14.6 K/uL (4.3-11.0)
[2022-09-19] MEDS: LEVOTHYROXINE SODIUM 88 MCG TABLET GT SCH (07:56)
[2022-09-19 08:00] VITALS: BP 105/55
[2022-09-19 08:16] LABS: ALANINE AMINOTRANSFERASE 17 U/L (12-78); ALKALINE PHOSPHATASE 172 U/L (46-116); ASPARTATE AMINOTRANSFERASE 28 U/L (15-37); BILIRUBIN,TOTAL 0.5 mg/dL (0.2-1.0); CALCIUM, SERUM 10.1 mg/dL (8.5-10.1); CARBON DIOXIDE 26 mmol/L (21-32); CHLORIDE 97 mmol/L (98-107); GLUCOSE 176 mg/dL (74-106); MAGNESIUM 2.7 mg/dL (1.8-2.4); PHOSPHORUS 3.9 mg/dL (2.5-4.9); POTASSIUM 4.9 mmol/L (3.5-5.1); SODIUM SERUM 137 mmol/L (136-145); TOTAL PROTEIN, SERUM 9.7 g/dL (6.4-8.2)
[2022-09-19] MEDS: DOCUSATE SODIUM 100 MG CAPSULE PO SCH (08:40)
[2022-09-19] MEDS: PANTOPRAZOLE 40 MG/PACK PACK GT SCH (08:41)
[2022-09-19] MEDS: CARVEDILOL 3.125 MG TABLET GT SCH ×2 (08:41→21:00)
[2022-09-19] MEDS: CHLORHEXIDINE GLUCONATE 15 ML UDC MM SCH ×2 (08:42→21:15)
[2022-09-19] MEDS: ASPIRIN 81 MG TAB.CHEW GT SCH (08:44)
[2022-09-19] MEDS: PROSOURCE / PROSTAT (PYXIS) 30 ML UDC GT SCH (08:45)
[2022-09-19] MEDS: CADEXOMER IODINE 40 GM TUBE TP SCH (09:42)
[2022-09-19 10:09] LABS: UREA NITROGEN, BLOOD 93 mg/dL (7-18)
[2022-09-19 10:10] LABS: ALBUMIN 3.1 g/dL (3.4-5.0)
[2022-09-19 12:00] VITALS: BP 102/51
[2022-09-19 16:00] VITALS: BP 101/64
[2022-09-19 16:50] LABS: BAND % (MANUAL) 6 % (0.0-5.0); BASOPHILS % (MANUAL) 0 % (0.0-2.0); EOSINOPHILS % (MANUAL) 2 % (0-4); LYMPHOCYTES % (MANUAL) 15 % (16-48); MONOCYTES % (MANUAL) 4 % (0-11.0); NEUTROPHILS % (MANUAL) 73 (42-76)
--- NOTE | 2022-09-19 18:15 | NUR ---
SHIFT SUMMARY PATIENT IS A/O X0, OPENS EYES, NON VERBAL, ON MECH VENT, TOLERATING SETTINGS WELL. NEPRO AT 75 ML/HR, TOLERATING FEEDING WELL. BLOOD SUGAR MONITORED, INSULIN GIVEN PER MD-SLIDING SCALE. SAFETY MEASURES MAINTAINED. BED IN LOWEST POSITION, BRAKES LOCKED. SIDE RAILS UP X2. CALL LIGHT WITHIN REACH. WILL ENDORSE CONTINUITY OF CARE TO ONCOMING SHIFT.
--- NOTE | 2022-09-19 19:18 | NUR ---
RN OPENING NOTE PATIENT IN BED, OPENS EYES, PATIENT IS NONVERBAL. ON MECHANICAL VENT TOLERATING CURRENT SETTINGS WITH 100% O2 SATURATION. TELE MONITOR READS ST 106 BPM. PATIENT'S G TUBE PATENT AND INTACT, ONGOING NEPRO AT 75 ML/HR, NO RESIDUAL, TOLERATING FEEDING WELL AT THIS TIME. LEFT LEG 22G, FLUSHING WELL, SALINE LOCKED AT THIS TIME AND RFA 20 G, HAS SOME RESISTANCE, BUT ABLE TO FLUSH WITH SALINE STILL. PATIENT STILL HAS R WRIST RESTRAINTS ON D/T PULLING ON TUBES. PATIENT NOT IN ANY APPARENT DISTRESS. NO PAIN VIA FLACC. SAFETY MEASURES IN PLACE: BED LOCKED AND IN LOWEST POSITION, CALL LIGHT WITHIN REACH, SIDE RAILS UP. WILL MONITOR PATIENT CLOSELY.
[2022-09-19 20:00] VITALS: BP 107/45
[2022-09-19] MEDS: ACETAMINOPHEN 325 MG TABLET PO PRN (21:15)
[2022-09-19] MEDS: OLANZAPINE 2.5 MG TABLET GT SCH (21:15)
--- NOTE | 2022-09-19 21:15 | NUR ---
RN NOTE TYLENOL GIVEN FOR FEVER OF 99.9, COOLING MEASURES INITIATED. WILL RECHECK AT A LATER TIME. BS 288, LANTUS GIVEN ORDERED.
[2022-09-19] MEDS: INSULIN GLARGINE, 100 UNIT/ML CARTRIDGE SQ SCH (21:16)
--- NOTE | 2022-09-19 22:45 | NUR ---
ECHOCARDIOGRAM BEING DONE AT BEDSIDE
--- NOTE | 2022-09-19 23:25 | NUR ---
RN NOTE BS 276 MG/DL, 6 UNITS REGULAR INSULIN ADMINISTERED FOR COVERAGE. WILL MONITOR PATIENT FOR HYPO/HYPERGLYCEMIA.
[2022-09-20] VITALS: BP 120/63
[2022-09-20] MEDS ORDERED: MEROPENEM 500 MG VIAL IV ONE (01:12)
[2022-09-20] MEDS: MEROPENEM 500 MG in IV NS 0.9% 50 ML IV SCH ×2 (01:14→13:33)
[2022-09-20] MEDS: ALBUTEROL FS 2.5 MG/3 ML VIAL.NEB IH SCH ×4 (01:22→20:04)
[2022-09-20 04:00] VITALS: BP 111/60
--- NOTE | 2022-09-20 04:10 | NUR ---
RT pt received on current vent settings. trached. vent plugged in to red outlet. alarms on and audible. spare trach at bedside. ambu bag at bedside. moderate secretions suctioned via trach. no sob, no resp distress during stress. spo2 >92%. shift uneventful
[2022-09-20] MEDS: BLOOD SUGAR DIAGNOSTIC 1 EACH STRIP IN SCH ×3 (06:19→18:09)
[2022-09-20] MEDS: INSULIN REGULAR, HUMAN 100 UNIT/ML 3 ML VIAL SQ PRN ×3 (06:21→18:09)
[2022-09-20 06:55] LABS: BASOPHILS # (AUTO) 0.1 K/uL (0.0-0.2); BASOPHILS % (AUTO) 0.6 % (0.0-2.0); EOSINOPHILS % (AUTO) 9.7 % (0.0-6.0); HEMATOCRIT 25 % (33-45); HEMOGLOBIN 7.8 g/dL (11.5-14.8); LYMPHOCYTES # (AUTO) 2.1 K/uL (0.8-4.8); LYMPHOCYTES % (AUTO) 12.3 % (20.0-44.0); MEAN CORPUSCULAR HGB CONC 32 g/dl (31.0-36.0); MEAN CORPUSCULAR VOLUME 97 fL (82-100); MONOCYTES # (AUTO) 1.8 K/uL (0.1-1.30); MONOCYTES % (AUTO) 10.7 % (2.0-12.0); NEUTROPHILS # (AUTO) 11.3 K/uL (1.8-8.9); NEUTROPHILS % (AUTO) 66.7 % (43.0-81.0); PLATELET COUNT (AUTO) 415 K/uL (150-450); RED BLOOD CELL COUNT(AUTO) 2.55 MIL/uL (4.0-5.2); WHITE BLOOD COUNT (AUTO) 16.9 K/uL (4.3-11.0)
--- NOTE | 2022-09-20 07:25 | NUR ---
SOFTWARE ENGINEER ADVISOR OPENING NOTES RECEIVED PATIENT AWAKE IN BED IN NO ACUTE SIGNS OF DISTRESS. HOB ELEVATED. PT IS NON-VERBAL AND OPENS EYES TO STIMULI. PT WITH TRACH SHILEY #6XLT CONNECTED TO MECHANICAL VENT, TOLERATING CURRENT SETTINGS WELL WITH SP02 OF 100% AT THIS TIME. CURRENT TELE MONITOR READS SR, HR 96 BPM. LCW HD CATHETER IN PLACE WITH DRESSING C/D/I. G-TUBE IN PLACE WITH GTF OF NEPRO AT 75 ML/HR IN PROGRESS, TOLERATING WELL. ASPIRATION PRECAUTIONS MAINTAINED. IV ACCESS ON LEFT LOWER LEG #22G INTACT, FLUSHING WELL, SALINE LOCKED. PATIENT WITH RIGHT WRIST RESTRAINTS ON D/T PULLING ON TUBES. SAFETY MEASURES IN PLACE: BED LOCKED AND IN LOWEST POSITION, CALL LIGHT WITHIN REACH, SIDE RAILS UP X3. WILL CONTINUE TO MONITOR PATIENT ACCORDINGLY.
--- NOTE | 2022-09-20 07:34 | NUR ---
WOUND CARE CONSULT: PT SEEN FOR SACRAL INTACT DEEP TISSUE INJURY OVER PREVIOUS SCARRING. SCARRING NOTED TO BE PRESENT ON ADMISSION. PT ALSO NOTED TO HAVE RT ELBOW SKIN TEAR. RECOMMENDATIONS MADE FOR SKIN PROTECTION AND WOUND CARE. DISCUSSED WITH NURSING STAFF AND SURGICAL TEAM CURRENTLY ON CASE. PT NOTED TO HAVE [id number] CO-MORBIDITIES INCLUDING VENTILATOR DEPENDENCE, SEPSIS, END STAGE RENAL FAILURE (ON HEMODIALYSIS), HISTORY OF CVA, DIABETES, HYPERTENSION, ANEMIA, AND FUNCTIONAL QUADRIPLEGIA. DUE TO MULTIPLE CO-MORBIDITIES, FURTHER SKIN BREAKDOWN MAY BE UNAVOIDABLE. MD IN AGREEMENT WITH PLAN OF CARE. Addendum: 09/20/22 at 0736 by NATHALY FELIZ WNDNU Amended: Links added.
[2022-09-20 07:36] LABS: ALANINE AMINOTRANSFERASE 14 U/L (12-78); ALKALINE PHOSPHATASE 176 U/L (46-116); ASPARTATE AMINOTRANSFERASE 25 U/L (15-37); BILIRUBIN,TOTAL 0.5 mg/dL (0.2-1.0); CALCIUM, SERUM 10.5 mg/dL (8.5-10.1); CARBON DIOXIDE 23 mmol/L (21-32); CHLORIDE 95 mmol/L (98-107); CREATININE 5.4 mg/dL (0.6-1.3); GLUCOSE 157 mg/dL (74-106); MAGNESIUM 3.2 mg/dL (1.8-2.4); PHOSPHORUS 4.8 mg/dL (2.5-4.9); POTASSIUM 5.2 mmol/L (3.5-5.1); SODIUM SERUM 136 mmol/L (136-145)
--- NOTE | 2022-09-20 07:40 | NUR ---
RN CLOSING NOTE PATIENT IN BED, EYES OPEN. PATIENT NON VERBAL. PATIENT TOLERATED CURRENT VENTILATOR SETTINGS. PATIENT WAS SEEN BY NATHALY MACHINE TENDER. PHOTOS TAKEN OF NEW WOUNDS. TUBE FEEDING NOW RESTARTED. TOLERATED WELL, NO RESIDUAL. ALL NEEDS MET AND ATTENDED. ALL ORDERS CARRIED OUT. SAFETY MEASURES IN PLACE: BED LOCKED AND IN LOWEST POSITION, CALL LIGHT WITHIN REACH, SIDE RAILS UP. ENDORSED TO DAY SHIFT NURSE FOR SALVATORE.
[2022-09-20 07:41] LABS: UREA NITROGEN, BLOOD 133 mg/dL (7-18)
[2022-09-20] MEDS: LEVOTHYROXINE SODIUM 88 MCG TABLET GT SCH (07:59)
[2022-09-20 08:00] VITALS: BP 126/41
[2022-09-20 08:40] LABS: ALBUMIN 3.3 g/dL (3.4-5.0)
[2022-09-20] MEDS: PROSOURCE / PROSTAT (PYXIS) 30 ML UDC GT SCH (08:41)
[2022-09-20] MEDS: CHLORHEXIDINE GLUCONATE 15 ML UDC MM SCH ×2 (08:41→21:33)
[2022-09-20] MEDS: PANTOPRAZOLE 40 MG/PACK PACK GT SCH (08:41)
[2022-09-20] MEDS: DOCUSATE SODIUM 100 MG CAPSULE PO SCH (08:42)
[2022-09-20] MEDS: ASPIRIN 81 MG TAB.CHEW GT SCH (08:42)
[2022-09-20] MEDS: CARVEDILOL 3.125 MG TABLET GT SCH ×2 (08:43→21:34)
[2022-09-20] MEDS: CADEXOMER IODINE 40 GM TUBE TP SCH (08:43)
[2022-09-20] MEDS: ALBUMIN 25% 25 GM in PREMIX 1 EA IV PRN (11:30)
[2022-09-20 12:00] VITALS: BP 90/54
--- NOTE | 2022-09-20 12:13 | NUR ---
RN NOTE Hemodialysis treatment terminated early with 0 output due to patient's BP low. Dr. Pérez contacted by HD nurse, made aware.
[2022-09-20 13:05] LABS: BAND % (MANUAL) 5 % (0.0-5.0); LYMPHOCYTES % (MANUAL) 8 % (16-48); NEUTROPHILS % (MANUAL) 75 (42-76)
[2022-09-20 13:06] LABS: EOSINOPHILS % (MANUAL) 7 % (0-4); METAMYELOCYTES % 1 % (0-0); MONOCYTES % (MANUAL) 4 % (0-11.0)
--- NOTE | 2022-09-20 15:05 | NUR ---
RN NOTE Partient had HD earlier with 0 output. Vancomycin IV post-HD not administered. Vanco through .
--- NOTE | 2022-09-20 18:46 | NUR ---
YOUTH PROGRAM DIRECTOR CLOSING NOTES PATIENT IN BED AWAKE AT THIS TIME. HOB ELEVATED. PT IS NON-VERBAL AND OPENS EYES TO STIMULI. PT WITH TRACH SHILEY #6XLT CONNECTED TO MECHANICAL VENT, TOLERATING CURRENT SETTINGS WELL WITH NO ACUTE RESPIRATORY DISTRESS NOTED DURING SHIFT. CURRENT TELE MONITOR READS ST, HR 105 BPM. LCW HD CATHETER IN PLACE WITH DRESSING C/D/I. G-TUBE IN PLACE WITH GTF OF NEPRO @ 75 ML/HR IN PROGRESS, TOLERATING WELL. ASPIRATION PRECAUTIONS MAINTAINED. IV ACCESS ON LEFT LOWER LEG #22G INTACT, FLUSHING WELL AND SL. PATIENT WITH RIGHT WRIST RESTRAINTS ON D/T PULLING ON TUBES. PT TURNED AND REPOSITIONED Q 2HRS AND PRN. ALL NEEDS AND CARE PROVIDED WELL. SAFETY MEASURES IN PLACE: BED LOCKED AND IN LOWEST POSITION, CALL LIGHT WITHIN REACH, SIDE RAILS UP X3. WILL ENDORSE SALVATORE TO ETL DATA ARCHITECT NURSE.
--- NOTE | 2022-09-20 18:47 | NUR ---
PREMIX OPERATOR CONCENTRATE CLOSING NOTES PATIENT IN BED ASLEEP AT THIS TIME, EASILY AROUSABLE. HOB ELEVATED. PT IS NON-VERBAL AND OPENS EYES TO STIMULI. PT WITH TRACH SHILEY #6XLT ATTACHED TO MECHANICAL VENT, TOLERATING CURRENT SETTINGS WELL WITH NO ACUTE RESPIRATORY DISTRESS NOTED DURING SHIFT. CURRENT TELE MONITOR READS SR, HR 105 BPM. LCW HD CATHETER IN PLACE WITH DRESSING C/D/I. G-TUBE IN PLACE WITH GTF OF NEPRO AT 75 ML/HR IN PROGRESS, TOLERATING WELL. ASPIRATION PRECAUTIONS MAINTAINED. IV ACCESS ON LEFT LOWER LEG #22G INTACT, FLUSHING WELL, SALINE LOCKED. PATIENT WITH RIGHT WRIST RESTRAINTS ON D/T PULLING ON TUBES. PT TURNED AND REPOSITIONED Q 2HRS AND PRN. ALL NEEDS AND CARE PROVIDED WELL. SAFETY MEASURES KEPT IN PLACE: BED LOCKED AND IN LOWEST POSITION, CALL LIGHT WITHIN REACH, SIDE RAILS UP X3. WILL ENDORSE SALVATORE TO COUNSELOR AID NURSE.
--- NOTE | 2022-09-20 19:36 | NUR ---
RN OPENING NOTES RECEIVED PT IN BED, ASLEEP, OPENS EYES TO VERBAL STIMULI. NON-VERBAL AND OPENS EYES. ON MECHANICAL VENT AND TOLERATING WELL. NO SOB NOTED. NO S/SX OF RESPIRATORY DISTRESS NOTED. TELE MONITOR DETECTS SINUS RHYTHM AND SINUS RHYTHM WITH RATE OF 105. G-TUBE IN PLACE AND RUNNING NEPRO @ 75 ML/HR. SAFETY PRECAUTIONS IN PLACE: BED IN LOWEST, LOCKED POSITION, SIDERAILS UPx2, AND BRAKES ON. TABLE AND CALL LIGHT WITHIN REACH. ALL NEEDS MET AT THIS TIME.
[2022-09-20 20:00] VITALS: BP 126/51
--- NOTE | 2022-09-20 20:04 | NUR ---
RT - MEDS NOT SCANNED DUE TO NO SCANNER AVAILABLE.
[2022-09-20] MEDS: OLANZAPINE 2.5 MG TABLET GT SCH (21:33)
[2022-09-20] MEDS: ACETAMINOPHEN 325 MG TABLET PO PRN (21:33)
--- NOTE | 2022-09-20 21:34 | NUR ---
RN NOTES ADMINISTERED TYLENOL FOR FEVER OF 101.5. PLACED ICE BAGS ON PATIENT WELL.
[2022-09-21] VITALS: BP 114/66
[2022-09-21] MEDS: INSULIN GLARGINE, 100 UNIT/ML CARTRIDGE SQ SCH ×2 (00:50→23:17)
[2022-09-21] MEDS: BLOOD SUGAR DIAGNOSTIC 1 EACH STRIP IN SCH ×5 (00:51→23:24)
[2022-09-21] MEDS: INSULIN REGULAR, HUMAN 100 UNIT/ML 3 ML VIAL SQ PRN ×5 (00:52→23:19)
[2022-09-21] MEDS: ALBUTEROL FS 2.5 MG/3 ML VIAL.NEB IH SCH ×4 (01:47→20:30)
[2022-09-21] MEDS: MEROPENEM 500 MG in IV NS 0.9% 50 ML IV SCH ×2 (02:17→14:05)
[2022-09-21 04:00] VITALS: BP 129/49
--- NOTE | 2022-09-21 06:12 | NUR ---
RT PT RECVD ON CURRENT SETTINGS AC RR 18 VT 550 FIO2 30% PEEP +5 WITH SHILEY 6 XLT PROXIMAL TRACH THAT IS PATENT AND SECURED. SUCTION DONE PRN, NEB TX GIVEN WITH NO ADVERSE REACTIONS NOTED. TRACH CARE DONE. NO SOB OR RESPIRATORY DISTRESS NOTED THROUGHOUT SHIFT. VENT IS PLUGGED INTO RED OUTLET WITH ALARMS ON AND AUDIBLE, SPARE TRACH AND AMBU BAG AT BEDSIDE.
[2022-09-21] MEDS: NEPRO 1,000 ML BOTTLE GT PRN (06:28)
--- NOTE | 2022-09-21 06:49 | NUR ---
RN CLOSING NOTES PT IN BED, AWAKE, WITH EYES OPEN. NON-VERBAL AND OPENS EYES. ON MECHANICAL VENT AND TOLERATING WELL. NO SOB NOTED. NO S/SX OF RESPIRATORY DISTRESS NOTED. TELE MONITOR DETECTS SINUS RHYTHM AND SINUS RHYTHM WITH RATE OF 105. G-TUBE IN PLACE AND RUNNING NEPRO @ 75 ML/HR. ALL ORDERS CARRIED OUT. WOUND CARE DONE. ALL NEEDS MET. PT KEPT CLEAN AND DRY. SAFETY PRECAUTIONS IN PLACE: BED IN LOWEST, LOCKED POSITION, SIDERAILS UPx2, AND BRAKES ON. TABLE AND CALL LIGHT WITHIN REACH. WILL ENDORSE TO ONCOMING SHIFT FOR SALVATORE.
[2022-09-21 07:12] LABS: BASOPHILS # (AUTO) 0.1 K/uL (0.0-0.2); EOSINOPHILS % (AUTO) 10.1 % (0.0-6.0); HEMATOCRIT 23 % (33-45); HEMOGLOBIN 7.3 g/dL (11.5-14.8); LYMPHOCYTES # (AUTO) 1.9 K/uL (0.8-4.8); LYMPHOCYTES % (AUTO) 13.2 % (20.0-44.0); MEAN CORPUSCULAR HGB CONC 32 g/dl (31.0-36.0); MEAN CORPUSCULAR VOLUME 97 fL (82-100); MONOCYTES # (AUTO) 1.5 K/uL (0.1-1.30); MONOCYTES % (AUTO) 10.3 % (2.0-12.0); NEUTROPHILS # (AUTO) 9.2 K/uL (1.8-8.9); NEUTROPHILS % (AUTO) 65.4 % (43.0-81.0); PLATELET COUNT (AUTO) 405 K/uL (150-450); WHITE BLOOD COUNT (AUTO) 14.1 K/uL (4.3-11.0)
[2022-09-21 07:21] LABS: ALANINE AMINOTRANSFERASE 8 U/L (12-78); ALKALINE PHOSPHATASE 161 U/L (46-116); ASPARTATE AMINOTRANSFERASE 22 U/L (15-37); BILIRUBIN,TOTAL 0.5 mg/dL (0.2-1.0); CALCIUM, SERUM 10.2 mg/dL (8.5-10.1); CARBON DIOXIDE 25 mmol/L (21-32); CHLORIDE 96 mmol/L (98-107); CREATININE 5.6 mg/dL (0.6-1.3); GLUCOSE 151 mg/dL (74-106); MAGNESIUM 3.2 mg/dL (1.8-2.4); PHOSPHORUS 5.7 mg/dL (2.5-4.9); POTASSIUM 5.1 mmol/L (3.5-5.1); SODIUM SERUM 138 mmol/L (136-145); TOTAL PROTEIN, SERUM 9.4 g/dL (6.4-8.2)
--- NOTE | 2022-09-21 07:26 | NUR ---
WELFARE CASE WORKER OPENING NOTES PATIENT RECEIVED AWAKE IN BED WITH TRACH SHILEY #6XLT CONNECTED TO MECHANICAL VENT, TOLERATING CURRENT SETTINGS WELL WITH NO ACUTE RESPIRATORY DISTRESS NOTED. PT IS NON-VERBAL AND OPENS EYES TO STIMULI. ON TELE MONITOR WITH CURRENT READING OF SR, HR 99 BPM. LCW HD CATHETER IN PLACE WITH DRESSING C/D/I. G-TUBE IN PLACE WITH GTF OF NEPRO A@ 75 ML/HR IN PROGRESS, TOLERATING WELL. ASPIRATION PRECAUTIONS MAINTAINED. IV ACCESS ON LEFT LOWER LEG #22G INTACT, FLUSHING WELL, SALINE LOCKED. PATIENT WITH RIGHT WRIST RESTRAINTS ON D/T PULLING ON TUBES. SAFETY MEASURES IN PLACE: BED LOCKED AND IN LOWEST POSITION, HOB ELEVATED, CALL LIGHT WITHIN REACH, SIDE RAILS UP X3. WILL CONTINUE TO MONITOR PATIENT.
[2022-09-21] MEDS: LEVOTHYROXINE SODIUM 88 MCG TABLET GT SCH (07:31)
[2022-09-21 07:51] LABS: ALBUMIN 2.7 g/dL (3.4-5.0)
[2022-09-21 07:55] LABS: UREA NITROGEN, BLOOD 137 mg/dL (7-18)
[2022-09-21] MEDS: CARVEDILOL 3.125 MG TABLET GT SCH ×2 (09:00→21:36)
[2022-09-21] MEDS: DOCUSATE SODIUM 100 MG CAPSULE PO SCH (09:12)
[2022-09-21] MEDS: PANTOPRAZOLE 40 MG/PACK PACK GT SCH (09:12)
[2022-09-21] MEDS: ASPIRIN 81 MG TAB.CHEW GT SCH (09:12)
[2022-09-21] MEDS: PROSOURCE / PROSTAT (PYXIS) 30 ML UDC GT SCH (09:12)
[2022-09-21] MEDS: CHLORHEXIDINE GLUCONATE 15 ML UDC MM SCH ×2 (09:12→21:36)
[2022-09-21] MEDS: CADEXOMER IODINE 40 GM TUBE TP SCH (09:14)
[2022-09-21 10:07] LABS: BAND % (MANUAL) 4 % (0.0-5.0); EOSINOPHILS % (MANUAL) 14 % (0-4); LYMPHOCYTES % (MANUAL) 14 % (16-48); MONOCYTES % (MANUAL) 10 % (0-11.0); NEUTROPHILS % (MANUAL) 58 (42-76)
[2022-09-21] MEDS: MIDODRINE HCL (5MG) 5 MG TABLET GT PRN (12:59)
--- NOTE | 2022-09-21 17:57 | NUR ---
RN NOTES PT JUST COMPLETED AND TOLERATED HEMODIALYSIS VIA RCW HD CATHETER WITH 1,00ML OUT.
[2022-09-21] MEDS: VANCOMYCIN 500 MG in IV D5W 100 ML IV PRN (18:04)
--- NOTE | 2022-09-21 18:37 | NUR ---
APPRAISER TIMBER CLOSING NOTES PATIENT IN BED AWAKE AT THIS TIME AND LYING AT MODERATE HIGH BACKREST POSITION. PT IS NON-VERBAL AND OPENS EYES TO STIMULI. PT WITH TRACH SHILEY #6XLT CONNECTED TO MECHANICAL VENTILATOR, TOLERATING CURRENT SETTINGS WELL WITH NO ACUTE RESPIRATORY DISTRESS NOTED DURING SHIFT. CURRENT TELE MONITOR READS SR, HR 94 BPM. LCW HD CATHETER IN PLACE WITH DRESSING C/D/I. G-TUBE IN PLACE WITH GTF OF NEPRO AT 75 ML/HR IN PROGRESS, TOLERATING WELL. ASPIRATION PRECAUTIONS MAINTAINED. IV ACCESS ON LEFT LOWER LEG #22G INTACT, FLUSHING WELL, SALINE LOCKED. PATIENT WITH RIGHT WRIST RESTRAINTS ON D/T PULLING ON TUBES. PT TURNED AND REPOSITIONED Q 2HRS AND PRN. ALL NEEDS AND CARE PROVIDED WELL. SAFETY MEASURES KEPT IN PLACE: BED LOCKED AND IN LOWEST POSITION, CALL LIGHT WITHIN REACH, SIDE RAILS UP X3. WILL ENDORSE SALVATORE TO NURSING PROJECT COORDINATOR NURSE.
--- NOTE | 2022-09-21 19:30 | NUR ---
RN OPENING NOTES RECEIVED PT IN BED, ASLEEP, OPENS EYES TO VERBAL STIMULI. NON-VERBAL AND OPENS EYES. ON MECHANICAL VENT AND TOLERATING WELL. NO SOB NOTED. NO S/SX OF RESPIRATORY DISTRESS NOTED. TELE MONITOR DETECTS SINUS RHYTHM AND SINUS TACHYCARDIA WITH RATE OF 105. G-TUBE IN PLACE AND RUNNING NEPRO @ 75 ML/HR. SAFETY PRECAUTIONS IN PLACE: BED IN LOWEST, LOCKED POSITION, SIDERAILS UPx2, AND BRAKES ON. TABLE AND CALL LIGHT WITHIN REACH. ALL NEEDS MET AT THIS TIME.
[2022-09-21 20:00] VITALS: BP 131/66
[2022-09-21] MEDS: OLANZAPINE 2.5 MG TABLET GT SCH (21:36)
[2022-09-22] VITALS: BP 82/62
--- NOTE | 2022-09-22 00:50 | NUR ---
RN NOTES PATIENT HAVING EPISODE OF HYPOTENSION OF 82/62. CONTACTED ENDY CASILLAS, WHO SAID "PT IS ASLEEP AND ASYMPTOMATIC. DO NOT TREAT." NO NEW ORDERS AT THIS TIME.
[2022-09-22] MEDS: ALBUTEROL FS 2.5 MG/3 ML VIAL.NEB IH SCH ×4 (01:58→19:46)
[2022-09-22] MEDS: MEROPENEM 500 MG in IV NS 0.9% 50 ML IV SCH ×2 (02:40→13:06)
[2022-09-22 04:00] VITALS: BP 84/35
[2022-09-22] MEDS: BLOOD SUGAR DIAGNOSTIC 1 EACH STRIP IN SCH ×3 (05:20→17:53)
[2022-09-22] MEDS: INSULIN REGULAR, HUMAN 100 UNIT/ML 3 ML VIAL SQ PRN ×3 (05:22→18:07)
[2022-09-22] MEDS: MIDODRINE HCL (5MG) 5 MG TABLET GT PRN (05:44)
[2022-09-22] MEDS: NEPRO 1,000 ML BOTTLE GT PRN (06:21)
[2022-09-22 07:00] VITALS: BP 113/55
[2022-09-22 07:11] LABS: ALANINE AMINOTRANSFERASE 7 U/L (12-78); ALKALINE PHOSPHATASE 148 U/L (46-116); ASPARTATE AMINOTRANSFERASE 22 U/L (15-37); BILIRUBIN,TOTAL 0.5 mg/dL (0.2-1.0); CALCIUM, SERUM 9.7 mg/dL (8.5-10.1); CARBON DIOXIDE 26 mmol/L (21-32); CHLORIDE 101 mmol/L (98-107); CREATININE 3.9 mg/dL (0.6-1.3); GLUCOSE 110 mg/dL (74-106); MAGNESIUM 2.8 mg/dL (1.8-2.4); PHOSPHORUS 4.1 mg/dL (2.5-4.9); POTASSIUM 4.6 mmol/L (3.5-5.1); SODIUM SERUM 138 mmol/L (136-145); TOTAL PROTEIN, SERUM 9.1 g/dL (6.4-8.2); UREA NITROGEN, BLOOD 79 mg/dL (7-18)
[2022-09-22 07:33] LABS: ALBUMIN 3.1 g/dL (3.4-5.0)
--- NOTE | 2022-09-22 07:36 | NUR ---
RN CLOSING NOTES PT IN BED, ASLEEP, OPENS EYES TO VERBAL STIMULI. NON-VERBAL AND OPENS EYES. ON MECHANICAL VENT AND TOLERATING WELL. NO SOB NOTED. NO S/SX OF RESPIRATORY DISTRESS NOTED. TELE MONITOR DETECTS SINUS RHYTHM AND SINUS TACHYCARDIA WITH RATE OF 105. G-TUBE IN PLACE AND RUNNING NEPRO @ 75 ML/HR. ALL ORDERS CARRIED OUT. ALL NEEDS MET. PT KEPT CLEAN AND DRY. SAFETY PRECAUTIONS IN PLACE: BED IN LOWEST, LOCKED POSITION, SIDERAILS UPx2, AND BRAKES ON. TABLE AND CALL LIGHT WITHIN REACH. WILL ENDORSE TO ONCOMING SHIFT FOR SALVATORE.
--- NOTE | 2022-09-22 07:45 | NUR ---
YARN CONDITIONER OPENING NOTES: RECEIVED PT IN BED, ASLEEP, OPENS EYES TO VERBAL STIMULI. NON-VERBAL. ON MECHANICAL VENT AND TOLERATING WELL. NO S/S OF SOB NOTED. NO S/S OF PAIN NOTED VIA FLACC. TELE MONITOR READS SINUS RHYTHM 91. IV ACCESS AT R LEG # 22, SL, FLUSHING WELL,PATENT AND INTACT. L CW PERMACATH NOTED. G-TUBE IN PLACE AND RUNNING NEPRO @ 75 ML/HR. SAFETY PRECAUTIONS IN PLACE: BED IN LOWEST, LOCKED POSITION, SIDERAILS UPx2, AND BRAKES ON. TABLE AND CALL LIGHT WITHIN REACH. WILL ENDORSE TO ONCOMING SHIFT FOR SALVATORE.
[2022-09-22] MEDS: CARVEDILOL 3.125 MG TABLET GT SCH ×2 (09:00→23:20)
[2022-09-22] MEDS: DOCUSATE SODIUM 100 MG CAPSULE PO SCH (09:12)
[2022-09-22] MEDS: ASPIRIN 81 MG TAB.CHEW GT SCH (09:12)
[2022-09-22] MEDS: LEVOTHYROXINE SODIUM 88 MCG TABLET GT SCH (09:12)
[2022-09-22] MEDS: PANTOPRAZOLE 40 MG/PACK PACK GT SCH (09:12)
[2022-09-22] MEDS: CHLORHEXIDINE GLUCONATE 15 ML UDC MM SCH ×2 (09:16→23:01)
[2022-09-22] MEDS: PROSOURCE / PROSTAT (PYXIS) 30 ML UDC GT SCH (09:17)
[2022-09-22] MEDS: CADEXOMER IODINE 40 GM TUBE TP SCH (09:18)
[2022-09-22 12:00] VITALS: BP 100/43
[2022-09-22 14:59] LABS: BASOPHILS # (AUTO) 0.1 K/uL (0.0-0.2); BASOPHILS % (AUTO) 0.8 % (0.0-2.0); EOSINOPHILS % (AUTO) 8.7 % (0.0-6.0); HEMATOCRIT 24 % (33-45); HEMOGLOBIN 7.6 g/dL (11.5-14.8); LYMPHOCYTES # (AUTO) 2.8 K/uL (0.8-4.8); LYMPHOCYTES % (AUTO) 19.7 % (20.0-44.0); MEAN CORPUSCULAR HGB CONC 31 g/dl (31.0-36.0); MEAN CORPUSCULAR VOLUME 98 fL (82-100); MONOCYTES # (AUTO) 1.9 K/uL (0.1-1.30); MONOCYTES % (AUTO) 13.6 % (2.0-12.0); NEUTROPHILS # (AUTO) 8.2 K/uL (1.8-8.9); NEUTROPHILS % (AUTO) 57.2 % (43.0-81.0); PLATELET COUNT (AUTO) 414 K/uL (150-450); RED BLOOD CELL COUNT(AUTO) 2.49 MIL/uL (4.0-5.2); WHITE BLOOD COUNT (AUTO) 14.2 K/uL (4.3-11.0)
[2022-09-22 16:00] VITALS: BP 159/55
[2022-09-22 16:53] LABS: BAND % (MANUAL) 1 % (0.0-5.0); EOSINOPHILS % (MANUAL) 8 % (0-4); LYMPHOCYTES % (MANUAL) 24 % (16-48); MONOCYTES % (MANUAL) 2 % (0-11.0); NEUTROPHILS % (MANUAL) 65 (42-76)
--- NOTE | 2022-09-22 18:37 | NUR ---
PRODUCTION ROUSTABOUT CLOSING NOTES: PT IN BED, ASLEEP, OPENS EYES TO VERBAL STIMULI. NON-VERBAL. ON MECHANICAL VENT, O2 SAT @ 100% ON CURRENT SETTINGS. NO S/S OF SOB AND DISTRESS NOTED. NO S/S OF PAIN NOTED VIA FLACC. TELE MONITOR READS SINUS RHYTHM 95. IV ACCESS AT R LEG # 22, SL, FLUSHING WELL,PATENT AND INTACT. L CW PERMACATH NOTED. G-TUBE IN PLACE AND RUNNING NEPRO @ 75 ML/HR. S/P HD, OUTPUT= 350CC. WOUND CARE DONE, DUE MEDS GIVEN. KEPT PT DRY, CLEAN AND COMFORTABLE. SAFETY PRECAUTIONS IN PLACE: BED IN LOWEST, LOCKED POSITION, SIDERAILS UPx2, BRAKES ON. TABLE AND CALL LIGHT WITHIN REACH. WILL ENDORSE TO ONCOMING SHIFT FOR SALVATORE.
--- NOTE | 2022-09-22 19:10 | NUR ---
DIETARY MANAGER OPENING NOTES: RECEIVED PATIENT IN BED, AWAKE, NON VERBAL, NO S/S OF DISTRESS NOTED. NOT IN PAIN. HOB ELEVATED AT ALL TIMES. WITH RIGHT HAND RESTRAINT ON, SKIN AND CIRCULATIONS WNL. WITH GT FEEDING RUNNING AT 75ML/HR, WILL BE OFF ON 2300, AND ON AT 0700. ON TELE MONITOR WITH SINUS 96. BED IN LOWEST AND LOCKED POSITION. BED ALARM ON.
[2022-09-22 20:00] VITALS: BP 112/43
[2022-09-22] MEDS: OLANZAPINE 2.5 MG TABLET GT SCH (22:55)
[2022-09-22] MEDS: INSULIN GLARGINE, 100 UNIT/ML CARTRIDGE SQ SCH (22:59)
--- NOTE | 2022-09-22 23:00 | NUR ---
GT FEEDING STOPPED PER ORDER, GT FLUSHED WITH WATER AND CLAMPED.
--- NOTE | 2022-09-22 23:17 | NUR ---
CLARIFIED WITH ENDY FISHMAN RE: COREG IF IT'S OKAY TO GIVE FOR BP 142/32, HR 82. BP 112/43 HR 96 AT THE BEGINNING OF THE SHIFT, ENDY FISHMAN RESPONDED OKAY TO GIVE IT.
[2022-09-23] MEDS: INSULIN REGULAR, HUMAN 100 UNIT/ML 3 ML VIAL SQ PRN ×5 (01:28→23:43)
[2022-09-23] MEDS: ALBUTEROL FS 2.5 MG/3 ML VIAL.NEB IH SCH ×4 (01:47→19:42)
[2022-09-23] MEDS: MEROPENEM 500 MG in IV NS 0.9% 50 ML IV SCH (02:47)
[2022-09-23 04:00] VITALS: BP 147/57
[2022-09-23] MEDS: Z GUARD REMEDY 4 OZ OINT TP PRN (04:50)
[2022-09-23] MEDS: BLOOD SUGAR DIAGNOSTIC 1 EACH STRIP IN SCH ×5 (06:00→23:42)
--- NOTE | 2022-09-23 06:23 | NUR ---
blood sugar checked= 128, no insulin given.
[2022-09-23 06:39] LABS: BASOPHILS # (AUTO) 0.1 K/uL (0.0-0.2); EOSINOPHILS % (AUTO) 10.4 % (0.0-6.0); HEMATOCRIT 25 % (33-45); HEMOGLOBIN 7.8 g/dL (11.5-14.8); LYMPHOCYTES # (AUTO) 2.2 K/uL (0.8-4.8); LYMPHOCYTES % (AUTO) 16.4 % (20.0-44.0); MEAN CORPUSCULAR HGB CONC 32 g/dl (31.0-36.0); MEAN CORPUSCULAR VOLUME 97 fL (82-100); MONOCYTES # (AUTO) 1.4 K/uL (0.1-1.30); MONOCYTES % (AUTO) 10.8 % (2.0-12.0); NEUTROPHILS # (AUTO) 8.1 K/uL (1.8-8.9); NEUTROPHILS % (AUTO) 61.4 % (43.0-81.0); PLATELET COUNT (AUTO) 445 K/uL (150-450); RED BLOOD CELL COUNT(AUTO) 2.57 MIL/uL (4.0-5.2); WHITE BLOOD COUNT (AUTO) 13.2 K/uL (4.3-11.0)
[2022-09-23] MEDS: NEPRO 1,000 ML BOTTLE GT PRN (06:44)
[2022-09-23 07:00] VITALS: BP 157/73
[2022-09-23 07:06] LABS: ALANINE AMINOTRANSFERASE 11 U/L (12-78); ALBUMIN 3.2 g/dL (3.4-5.0); ALKALINE PHOSPHATASE 167 U/L (46-116); ASPARTATE AMINOTRANSFERASE 29 U/L (15-37); BILIRUBIN,TOTAL 0.5 mg/dL (0.2-1.0); CALCIUM, SERUM 10.6 mg/dL (8.5-10.1); CARBON DIOXIDE 24 mmol/L (21-32); CHLORIDE 98 mmol/L (98-107); CREATININE 4.1 mg/dL (0.6-1.3); GLUCOSE 137 mg/dL (74-106); MAGNESIUM 2.9 mg/dL (1.8-2.4); POTASSIUM 5.1 mmol/L (3.5-5.1); SODIUM SERUM 139 mmol/L (136-145); TOTAL PROTEIN, SERUM 9.8 g/dL (6.4-8.2)
[2022-09-23 07:10] LABS: UREA NITROGEN, BLOOD 82 mg/dL (7-18)
[2022-09-23 07:45] LABS: PHOSPHORUS 6.1 mg/dL (2.5-4.9)
--- NOTE | 2022-09-23 07:52 | NUR ---
TENNIS PLAYER OPENING NOTE Patient in bed, awake. Non-verbal, opens eyes. On mechanical ventilator, tolerating current settings well. G-tube in place running Nepro @ 75 ml/hr. IV access on Right leg #22 SL, intact and patent. On tele monitoring showing SR, HR 100. Safety precautions in place: bed in low, locked position; siderails up x 2; call light within reach. Will continue to monitor. Addendum: 09/23/22 at 0755 by MARY JO PRESLEY RN ADD: Right soft wrist restraint noted. Addendum: 09/23/22 at 1438 by MARY JO PRESLEY RN CORRECTION: IV access on Left leg #22, SL
[2022-09-23] MEDS: CHLORHEXIDINE GLUCONATE 15 ML UDC MM SCH ×2 (08:58→21:12)
[2022-09-23] MEDS: PROSOURCE / PROSTAT (PYXIS) 30 ML UDC GT SCH (08:59)
[2022-09-23] MEDS: CARVEDILOL 3.125 MG TABLET GT SCH ×2 (09:00→21:12)
[2022-09-23] MEDS: LEVOTHYROXINE SODIUM 88 MCG TABLET GT SCH (09:00)
[2022-09-23] MEDS: PANTOPRAZOLE 40 MG/PACK PACK GT SCH (09:00)
[2022-09-23] MEDS: ASPIRIN 81 MG TAB.CHEW GT SCH (09:01)
[2022-09-23] MEDS: DOCUSATE SODIUM 100 MG CAPSULE PO SCH (09:01)
[2022-09-23] MEDS: CADEXOMER IODINE 40 GM TUBE TP SCH (09:01)
--- NOTE | 2022-09-23 11:00 | NUR ---
RN NOTE GT feeding stopped. Will turn back on at 0700.
[2022-09-23 12:00] VITALS: BP 91/42
--- NOTE | 2022-09-23 19:47 | NUR ---
RN NOTE Patient remains stable. Safety precautions maintained. Will continue with POC.
[2022-09-23 20:00] VITALS: BP 124/45
[2022-09-23] MEDS: OLANZAPINE 2.5 MG TABLET GT SCH (21:12)
[2022-09-23] MEDS: INSULIN GLARGINE, 100 UNIT/ML CARTRIDGE SQ SCH (21:28)
[2022-09-24] VITALS: BP 110/43
[2022-09-24 02:00] VITALS: BP 143/58
[2022-09-24] MEDS: ALBUTEROL FS 2.5 MG/3 ML VIAL.NEB IH SCH ×4 (02:01→20:10)
[2022-09-24] MEDS: BLOOD SUGAR DIAGNOSTIC 1 EACH STRIP IN SCH ×4 (05:47→23:40)
[2022-09-24 06:46] LABS: BASOPHILS # (AUTO) 0.1 K/uL (0.0-0.2); BASOPHILS % (AUTO) 0.5 % (0.0-2.0); EOSINOPHILS % (AUTO) 8.6 % (0.0-6.0); HEMATOCRIT 25 % (33-45); HEMOGLOBIN 7.8 g/dL (11.5-14.8); LYMPHOCYTES # (AUTO) 2.6 K/uL (0.8-4.8); LYMPHOCYTES % (AUTO) 17.7 % (20.0-44.0); MEAN CORPUSCULAR HGB CONC 31 g/dl (31.0-36.0); MEAN CORPUSCULAR VOLUME 96 fL (82-100); MONOCYTES # (AUTO) 1.4 K/uL (0.1-1.30); MONOCYTES % (AUTO) 9.8 % (2.0-12.0); NEUTROPHILS # (AUTO) 9.2 K/uL (1.8-8.9); NEUTROPHILS % (AUTO) 63.4 % (43.0-81.0); PLATELET COUNT (AUTO) 473 K/uL (150-450); RED BLOOD CELL COUNT(AUTO) 2.59 MIL/uL (4.0-5.2); WHITE BLOOD COUNT (AUTO) 14.5 K/uL (4.3-11.0)
--- NOTE | 2022-09-24 06:54 | NUR ---
SCOURER CLOSING NOTE Patient in bed, asleep. Non-verbal but opens eyes. On mechanical ventilator, tolerating current settings well. G-tube in place running Nepro @ 75 ml/hr. IV access on Left leg #22 SL, intact and patent. On tele monitoring showing SR, HR 93. Due meds given. Patient kept clean and dry. Turned and repositioned, as tolerated. Photos of wounds taken and placed in chart. Right soft wrist restraint noted. Safety precautions in place: bed in low, locked position; siderails up x 2; call light within reach. Will endorse to morning shift nurse for SALVATORE.
[2022-09-24 07:00] VITALS: BP 106/56
[2022-09-24 07:03] LABS: ALANINE AMINOTRANSFERASE 8 U/L (12-78); ALBUMIN 3.2 g/dL (3.4-5.0); ALKALINE PHOSPHATASE 168 U/L (46-116); ASPARTATE AMINOTRANSFERASE 23 U/L (15-37); BILIRUBIN,TOTAL 0.5 mg/dL (0.2-1.0); CALCIUM, SERUM 10.8 mg/dL (8.5-10.1); CARBON DIOXIDE 23 mmol/L (21-32); CHLORIDE 98 mmol/L (98-107); CREATININE 5.5 mg/dL (0.6-1.3); GLUCOSE 92 mg/dL (74-106); MAGNESIUM 3.2 mg/dL (1.8-2.4); PHOSPHORUS 7.2 mg/dL (2.5-4.9); POTASSIUM 5.3 mmol/L (3.5-5.1); SODIUM SERUM 139 mmol/L (136-145); TOTAL PROTEIN, SERUM 9.8 g/dL (6.4-8.2)
[2022-09-24] MEDS: LEVOTHYROXINE SODIUM 88 MCG TABLET GT SCH ×2 (07:30→11:06)
--- NOTE | 2022-09-24 07:42 | NUR ---
RN OPENING NOTE Patient in bed, awake. Non-verbal, eyes open. On mechanical ventilator, tolerating current settings well. On tele monitor showing SR with 1st deg AV block @ 97 bpm. G-tube in place running Nepro @ 75 ml/hr. IV access on left leg #22 SL, intact and patent. Right soft wrist restraint noted. Dressings to leg dry and intact. Will change according to protocol. Pillows used to reposition. Safety precautions in place: bed in low, locked position; siderails up x 2; call light within reach. HD nurse in room. Will begin HD. Will continue to monitor and assist.
[2022-09-24 07:50] LABS: UREA NITROGEN, BLOOD 124 mg/dL (7-18)
[2022-09-24] MEDS: ALBUMIN 25% 25 GM in PREMIX 1 EA IV PRN (08:23)
[2022-09-24] MEDS: ASPIRIN 81 MG TAB.CHEW GT SCH ×2 (08:57→11:05)
[2022-09-24] MEDS: PROSOURCE / PROSTAT (PYXIS) 30 ML UDC GT SCH ×2 (08:58→11:06)
[2022-09-24] MEDS: PANTOPRAZOLE 40 MG/PACK PACK GT SCH ×2 (08:58→11:05)
[2022-09-24] MEDS: DOCUSATE SODIUM 100 MG CAPSULE PO SCH ×2 (08:58→11:05)
[2022-09-24] MEDS: CARVEDILOL 3.125 MG TABLET GT SCH ×2 (08:58→21:58)
[2022-09-24] MEDS: CHLORHEXIDINE GLUCONATE 15 ML UDC MM SCH ×2 (08:58→21:58)
[2022-09-24] MEDS: CADEXOMER IODINE 40 GM TUBE TP SCH (09:22)
[2022-09-24] MEDS: NEPRO 1,000 ML BOTTLE GT PRN (09:25)
[2022-09-24 10:45] LABS: EOSINOPHILS % (MANUAL) 12 % (0-4); LYMPHOCYTES % (MANUAL) 16 % (16-48); MONOCYTES % (MANUAL) 9 % (0-11.0); NEUTROPHILS % (MANUAL) 63 (42-76)
[2022-09-24 12:00] VITALS: BP 168/76
[2022-09-24] MEDS: INSULIN REGULAR, HUMAN 100 UNIT/ML 3 ML VIAL SQ PRN ×3 (12:55→23:36)
[2022-09-24] MEDS: ACETAMINOPHEN ES 500 MG TABLET GT PRN (13:06)
--- NOTE | 2022-09-24 13:06 | NUR ---
RN NOTE - T -99.6 . TYLENOL 500 MG ADMINISTERED VIA GT
--- NOTE | 2022-09-24 15:32 | NUR ---
TX NOT GIVEN DUE TO NEEDLE INJURY TO MY FINGER Addendum: 09/24/22 at 1532 by CHIKI TAMEZ RT Amended: Links added.
--- NOTE | 2022-09-24 18:25 | NUR ---
RN CLOSING NOTE Patient sleeping in bed. Non-verbal, eyes open. On mechanical ventilator, tolerating current settings well. On tele monitor showing SR @ 90BPM. G-tube in place running Nepro @ 75 ml/hr. IV access on left leg #22 SL, intact and patent. Right soft wrist restraint maintained. Dressings to leg and coccyx performed and tolerated well. HD tolerated well with 1000 ml output. Safety precautions maintained: bed in low, locked position; siderails up x3; call light within reach. Will endorse SALVATORE to bolt maker nurse.
--- NOTE | 2022-09-24 19:25 | NUR ---
RN OPENING NOTE PATIENT IN BED, OPENS EYES, PATIENT IS NONVERBAL. ON MECHANICAL VENT TOLERATING CURRENT SETTINGS WITH 100% O2 SATURATION, FIO2 30%. TELE MONITOR READS SR 92 BPM. PATIENT'S G TUBE PATENT AND INTACT, ONGOING NEPRO AT 75 ML/HR, NO RESIDUAL, TOLERATING FEEDING WELL AT THIS TIME. LEFT LEG 22G, FLUSHING WELL, SALINE LOCKED AT THIS TIME. PATIENT HAS SOFT WRIST RESTRAINTS ON THE RIGHT. NO INJURIES NOTED AT THIS TIME. PATIENT NOT IN ANY APPARENT DISTRESS. NO PAIN VIA FLACC. WILL SUCTION PATIENT NEEDED. SAFETY MEASURES IN PLACE: BED LOCKED AND IN LOWEST POSITION, CALL LIGHT WITHIN REACH, SIDE RAILS UP. ASPIRATION PRECAUTIONS IN PLACE. WILL MONITOR PATIENT CLOSELY.
[2022-09-24 20:00] VITALS: BP 125/53
[2022-09-24] MEDS: OLANZAPINE 2.5 MG TABLET GT SCH (21:58)
[2022-09-24] MEDS: INSULIN GLARGINE, 100 UNIT/ML CARTRIDGE SQ SCH (22:16)
[2022-09-25] VITALS: BP 130/46
[2022-09-25] MEDS: ALBUTEROL FS 2.5 MG/3 ML VIAL.NEB IH SCH ×4 (02:33→19:30)
[2022-09-25 04:00] VITALS: BP 108/55
[2022-09-25] MEDS: BLOOD SUGAR DIAGNOSTIC 1 EACH STRIP IN SCH ×3 (06:05→17:03)
[2022-09-25] MEDS: INSULIN REGULAR, HUMAN 100 UNIT/ML 3 ML VIAL SQ PRN ×3 (06:06→17:07)
--- NOTE | 2022-09-25 07:00 | NUR ---
RN CLOSING NOTE PATIENT IN BED, OPENS EYES, PATIENT IS NONVERBAL. ON MECHANICAL VENT TOLERATING CURRENT SETTINGS WITH 100% O2 SATURATION, FIO2 30%. TELE MONITOR READS SR 92 BPM. PATIENT'S G TUBE PATENT AND INTACT, ONGOING NEPRO AT 75 ML/HR, NO RESIDUAL, TOLERATING FEEDING WELL AT THIS TIME, TURNED ON AT 0700. LEFT LEG 22G, FLUSHING WELL, SALINE LOCKED AT THIS TIME. PATIENT HAS SOFT WRIST RESTRAINTS ON THE RIGHT. NO INJURIES NOTED AT THIS TIME. PATIENT NOT IN ANY APPARENT DISTRESS. NO PAIN VIA FLACC. SUCTIONED PATIENT PRN. WOUND CARE RENDERED. BS 89 MG/DL, RECHECKED 134 MG/DL AFTER GIVEN JUICE. SAFETY MEASURES IN PLACE: BED LOCKED AND IN LOWEST POSITION, CALL LIGHT WITHIN REACH, SIDE RAILS UP. ASPIRATION PRECAUTIONS IN PLACE. WILL ENDORSE TO DAY SHIFT NURSE FOR SALVATORE.
[2022-09-25 07:51] LABS: ALANINE AMINOTRANSFERASE 8 U/L (12-78); ALKALINE PHOSPHATASE 150 U/L (46-116); ASPARTATE AMINOTRANSFERASE 25 U/L (15-37); BASOPHILS # (AUTO) 0.1 K/uL (0.0-0.2); BASOPHILS % (AUTO) 1.2 % (0.0-2.0); BILIRUBIN,TOTAL 0.5 mg/dL (0.2-1.0); CALCIUM, SERUM 10.5 mg/dL (8.5-10.1); CARBON DIOXIDE 24 mmol/L (21-32); CHLORIDE 98 mmol/L (98-107); CREATININE 4.6 mg/dL (0.6-1.3); EOSINOPHILS % (AUTO) 8.3 % (0.0-6.0); GLUCOSE 122 mg/dL (74-106); HEMATOCRIT 23 % (33-45); HEMOGLOBIN 7.2 g/dL (11.5-14.8); LYMPHOCYTES # (AUTO) 2.3 K/uL (0.8-4.8); LYMPHOCYTES % (AUTO) 19.9 % (20.0-44.0); MEAN CORPUSCULAR HGB CONC 32 g/dl (31.0-36.0); MEAN CORPUSCULAR VOLUME 97 fL (82-100); MONOCYTES # (AUTO) 1.2 K/uL (0.1-1.30); MONOCYTES % (AUTO) 10.2 % (2.0-12.0); NEUTROPHILS # (AUTO) 6.9 K/uL (1.8-8.9); NEUTROPHILS % (AUTO) 60.4 % (43.0-81.0); PHOSPHORUS 5.5 mg/dL (2.5-4.9); PLATELET COUNT (AUTO) 430 K/uL (150-450); POTASSIUM 4.7 mmol/L (3.5-5.1); RED BLOOD CELL COUNT(AUTO) 2.32 MIL/uL (4.0-5.2); SODIUM SERUM 135 mmol/L (136-145); TOTAL PROTEIN, SERUM 9.4 g/dL (6.4-8.2); WHITE BLOOD COUNT (AUTO) 11.4 K/uL (4.3-11.0)
--- NOTE | 2022-09-25 08:07 | NUR ---
RN OPENING NOTES PATIENT AWAKE IN BED RESTING, A/O X 1-2. NO S/S OF PAIN NOTED AT THIS TIME. ON VENT TOLERATING SETTING WELL, AT PRESCRIBED SETTING, NO DISTRESS NOTED. IV ACCESS L LEG #22G, INTACT, PATENT, FLUSHING WELL. PATIENT WITH EXTERNAL GOVERNMENT AFFAIRS FELLOW WITH CURRENT READING OF CONTROL SR HR OF 80S-90S, NO CARDIAC DISTRESS NOTED AT THIS TIME. PATIENT ON G-TUBE FEEDING, TOLERATING WELL. FALL AND SAFETY MEASURES IN PLACE, BED ALARM ON, BED IN LOW LOCK POSITION, CALL LIGHT AND TABLE WITHIN EASY REACH, SIDE RAILS UP X2. WILL CONTINUE TO MONITOR. Addendum: 09/25/22 at 3 by Olga Alvares RN A/O X 0 NON-VERBAL.
[2022-09-25 08:09] LABS: UREA NITROGEN, BLOOD 97 mg/dL (7-18)
[2022-09-25] MEDS: PROSOURCE / PROSTAT (PYXIS) 30 ML UDC GT SCH (09:26)
[2022-09-25] MEDS: CHLORHEXIDINE GLUCONATE 15 ML UDC MM SCH (09:26)
[2022-09-25] MEDS: DOCUSATE SODIUM 100 MG CAPSULE PO SCH (09:27)
[2022-09-25] MEDS: ASPIRIN 81 MG TAB.CHEW GT SCH (09:27)
[2022-09-25] MEDS: LEVOTHYROXINE SODIUM 88 MCG TABLET GT SCH (09:27)
[2022-09-25] MEDS: CARVEDILOL 3.125 MG TABLET GT SCH (09:27)
[2022-09-25] MEDS: PANTOPRAZOLE 40 MG/PACK PACK GT SCH (09:27)
[2022-09-25] MEDS: CADEXOMER IODINE 40 GM TUBE TP SCH (09:28)
[2022-09-25] MEDS: NEPRO 1,000 ML BOTTLE GT PRN (09:50)
[2022-09-25] MEDS ORDERED: Nepro GT (15:19)
[2022-09-25 17:19] LABS: BAND % (MANUAL) 4 % (0.0-5.0); BASOPHILS % (MANUAL) 0 % (0.0-2.0); EOSINOPHILS % (MANUAL) 9 % (0-4); LYMPHOCYTES % (MANUAL) 18 % (16-48); MONOCYTES % (MANUAL) 11 % (0-11.0); NEUTROPHILS % (MANUAL) 58 (42-76)
--- NOTE | 2022-09-25 19:30 | NUR ---
RN OPENING NOTE PATIENT IN BED, OPENS EYES, PATIENT IS NONVERBAL. ON MECHANICAL VENT TOLERATING CURRENT SETTINGS WITH 100% O2 SATURATION, FIO2 30%. PATIENT TO BE DISCHARGED TONIGHT. TELE MONITOR READS SR 95 BPM. PATIENT'S G TUBE PATENT AND INTACT, ONGOING NEPRO AT 75 ML/HR, NO RESIDUAL, TOLERATING FEEDING WELL AT THIS TIME. LEFT LEG 22G, FLUSHING WELL, SALINE LOCKED AT THIS TIME. PATIENT HAS SOFT WRIST RESTRAINTS ON THE RIGHT. NO INJURIES NOTED AT THIS TIME. PATIENT NOT IN ANY APPARENT DISTRESS. NO PAIN VIA FLACC. WILL SUCTION PATIENT NEEDED. SAFETY MEASURES IN PLACE: BED LOCKED AND IN LOWEST POSITION, CALL LIGHT WITHIN REACH, SIDE RAILS UP. ASPIRATION PRECAUTIONS IN PLACE. WILL MONITOR PATIENT CLOSELY.
--- NOTE | 2022-09-25 19:51 | NUR ---
RN CLOSING NOTES PATIENT AWAKE IN BED RESTING, A/O X 0 NON-VERBAL. NO S/S OF PAIN NOTED AT THIS TIME. ON VENT TOLERATING SETTING WELL, AT PRESCRIBED SETTING, NO DISTRESS NOTED. IV ACCESS L LEG #22G, INTACT, PATENT, FLUSHING WELL. PATIENT WITH EXTERNAL STARCH DUMPER WITH CURRENT READING OF CONTROL SR HR OF 80S-90S, NO CARDIAC DISTRESS NOTED AT THIS TIME. PATIENT ON G-TUBE FEEDING, TOLERATING WELL. SCHEDULED MEDICATIONS ADMINISTERED. PATIENT TURNED AND REPOSITIONED PER PROTOCOL. FALL AND SAFETY MEASURES IN PLACE, BED ALARM ON, BED IN LOW LOCK POSITION, CALL LIGHT AND TABLE WITHIN EASY REACH, SIDE RAILS UP X2. WILL ENDORSE TO BROADLOOM WEAVER.
--- NOTE | 2022-09-25 20:21 | NUR ---
RT NOTE PT PICKED UP BY TRANSPORT. NO TX GIVEN. NO RESPIRATORY DISTRESS NOTED. SPO2 @ 100%, HR 100.
--- NOTE | 2022-09-25 20:23 | NUR ---
DISCHARGE NOTE PATIENT TO BE DISCHARGED TO [facility] GAVE REPORT TO CIRILOTIC RN, AND PATIENT IS GOING TO ROOM 30 B. PER JENNA RN, L LEG IV ACCESS TO BE LEFT IN PLACE. LCW HD CATH ALSO PRESENT UPON DC. ALL DISCHARGE PAPER WORK DONE. EXIT CARE GIVEN TO TRANSPORT TEAM INCLUDING MEDICATION LIST. PATIENT STABLE UPON DC.
[2022-09-25 20:35] VITALS: BP 99/35
== END 2022-09-25 21:30 | DRG 870 ==
LOC: ER 19:26 → TRANSITION 08-30 00:10 → TELE 08-30 00:34
PROVIDERS: ADMIT Nurse Practitioner Acute Care; ATTEND Nurse Practitioner Acute Care
PROC: 5A1955Z Respiratory Ventilation, Greater than 96 Consecutive Hours (ICD-10-PCS; principal; 2022-08-30)
PROC: 5A1D70Z Performance of Urinary Filtration, Intermittent, Less than 6 Hours Per Day (ICD-10-PCS; 2022-08-31)
PROC: 0JPV3XZ Removal of Tunneled Vascular Access Device from Upper Extremity Subcutaneous Tissue and Fascia, Percutaneous Approach (ICD-10-PCS; 2022-09-06)
PROC: 05PYX3Z Removal of Infusion Device from Upper Vein, External Approach (ICD-10-PCS; 2022-09-06)
PROC: 0JHF3XZ Insertion of Tunneled Vascular Access Device into Left Upper Arm Subcutaneous Tissue and Fascia, Percutaneous Approach (ICD-10-PCS; 2022-09-12)
PROC: 05HN33Z Insertion of Infusion Device into Left Internal Jugular Vein, Percutaneous Approach (ICD-10-PCS; 2022-09-12)
PROC: B514YZA Fluoroscopy of Left Jugular Veins using Other Contrast, Guidance (ICD-10-PCS; 2022-09-12)
DX: A41.9 Sepsis, unspecified organism (principal); J96.20 Acute and chronic respiratory failure, unspecified whether with hypoxia or hypercapnia; N18.6 End stage renal disease; G93.41 Metabolic encephalopathy; R53.2 Functional quadriplegia; E87.1 Hypo-osmolality and hyponatremia; D68.59 Other primary thrombophilia; Z99.11 Dependence on respirator [ventilator] status; I12.0 Hypertensive chronic kidney disease with stage 5 chronic kidney disease or end stage renal disease; N39.0 Urinary tract infection, site not specified; J98.11 Atelectasis; J90 Pleural effusion, not elsewhere classified; Z99.2 Dependence on renal dialysis; Z93.0 Tracheostomy status; R13.10 Dysphagia, unspecified; Z93.1 Gastrostomy status; Z20.822 Contact with and (suspected) exposure to COVID-19; E03.9 Hypothyroidism, unspecified; E11.22 Type 2 diabetes mellitus with diabetic chronic kidney disease; Z86.73 Personal history of transient ischemic attack (TIA), and cerebral infarction without residual deficits; Z88.1 Allergy status to other antibiotic agents; Z86.14 Personal history of Methicillin resistant Staphylococcus aureus infection; Z88.5 Allergy status to narcotic agent; Z88.8 Allergy status to other drugs, medicaments and biological substances; Z79.4 Long term (current) use of insulin; Z88.2 Allergy status to sulfonamides; Z79.51 Long term (current) use of inhaled steroids; Z79.82 Long term (current) use of aspirin; Z79.899 Other long term (current) drug therapy; J44.9 Chronic obstructive pulmonary disease, unspecified; E78.5 Hyperlipidemia, unspecified; D63.8 Anemia in other chronic diseases classified elsewhere; Z74.09 Other reduced mobility; M89.8X9 Other specified disorders of bone, unspecified site; L89.156 Pressure-induced deep tissue damage of sacral region; S51.011A Laceration without foreign body of right elbow, initial encounter; X58.XXXA Exposure to other specified factors, initial encounter; Y92.9 Unspecified place or not applicable; I70.0 Atherosclerosis of aorta; D75.839 Thrombocytosis, unspecified; E83.52 Hypercalcemia; I05.0 Rheumatic mitral stenosis; L89.896 Pressure-induced deep tissue damage of other site; L89.626 Pressure-induced deep tissue damage of left heel
CPT/HCPCS: 31720; 36415; 71045-TC; 80048-TC; 80053-TC; 80076-TC; 80202-TC; 82962-TC; 83605-TC; 83735-TC; 83970; 84100-TC; 84155; 84165; 84443-TC; 84484-TC; 85025-TC; 85730-TC; 86706; 87040-TC; 87070-TC; 87081-TC; 87186-TC; 87340; 90935-TC; 93307-TC; 94002-TC; 94003-TC; 94640-TC; 94760-TC; 94762-TC; 94799-TC; 99082-TC; A4216; A4623; A6253; A6403; A7526; C1750; C1757; C1769; C1894; C9113; C9803; G0378; J0690; J0692; J1644; J1815; J2060; J2185; J2430; J2543; J3370; J3490; J7030; J7040; J7050; J7060; P9047; Q9967